=== PATIENT | female | born 1950 | race Caucasian/White ===

== ENCOUNTER 2024-03-05 22:46 | Emergency (ER) | payer MEDICARE, SELFPAY ==
[2024-03-05 22:52] VITALS: BP 129/79; PULSE 78; RESP 18; TEMP 36.7; O2SAT 99; BMI 25.8
--- NOTE | 2024-03-05 22:57 | ED.TRAUMA ---
HPI - Trauma General Time Seen by Provider: 22:57 <Lissa Mauro MD - Last Filed: 03/07/24 10:11> Date Seen: 03/05/24 <Lissa Mauro MD - Last Filed: 03/07/24 10:11> Chief Complaint: Extremity Pain/Injury, Upper <Lissa Mauro MD - Last Filed: 03/07/24 10:11> Stated Complaint: Fall, L arm injury, hit head <Lissa Mauro MD - Last Filed: 03/07/24 10:11> Time Seen by Provider: 03/05/24 22:53 <Lissa Mauro MD - Last Filed: 03/07/24 10:11> Source: patient, family and RN notes reviewed <Lissa Mauro MD - Last Filed: 03/07/24 10:11> Mode of arrival: ambulatory <Lissa Mauro MD - Last Filed: 03/07/24 10:11> Limitations: no limitations <Lissa Mauro MD - Last Filed: 03/07/24 10:11> On Arrival Trauma Team Activation: No <Lissa Mauro MD - Last Filed: 03/07/24 10:11> History of Present Illness HPI narrative: This very pleasant 74-year-old female is coming in with injuries after a fall. She did hit the left front of her head, there was no loss of consciousness. She did have 1 episode of emesis after but believes it was because she was anxious. No visual changes, no headache. She denies any new neck pain, does have some underlying neck chronic issues but feels nothing acute or new. She has no back pain. No difficulty breathing. She states her left arm or shoulder area hurt. It hurts to put her arm above her head. She did note that her elbow started bleeding, apparently has a small wound or skin tear there. Does not hurt in her elbow to move it or in the forearm down. She has no chest pain, no chest wall pain, difficulty breathing. She has no pain in her lower extremities or her right arm. She was going up 2 steps and tripped. She hit the left front of her head and the left arm. Her pain is primarily in the left upper arm. She is unsure of tetanus status. She is on no blood thinners but does take a baby aspirin daily. <Lissa Mauro MD - Last Filed: 03/07/24 10:11> complaint: fall and injury <Lissa Mauro MD - Last Filed: 03/07/24 10:11> Loss of Consciousness: no <Lissa Mauro MD - Last Filed: 03/07/24 10:11> Related Data Home Medications: Home Medications ?Medication ?Instructions ?Recorded ?Confirmed No Known Home Medications 03/05/24 03/05/24 <Lissa Mauro MD - Last Filed: 03/07/24 10:11> Allergies/Adverse Reactions: Allergies Allergy/AdvReac Type Severity Reaction Status Date / Time No Known Drug Allergies Allergy Verified 03/05/24 22:54 <Lissa Mauro MD - Last Filed: 03/07/24 10:11> [facility] Social History: Social History Smoking Status: Never smoker Second hand tobacco smoke exposure: No How often do you have a drink containing alcohol: never AUDIT-C Alcohol total score: 0 Non-prescribed substance use: denies use <Lissa Mauro MD - Last Filed: 03/07/24 10:11> Exam Const: Vital Signs, click to edit/add: Vital Signs - 24 hr 03/05/24 22:52 03/06/24 01:08 Temperature 98.0 F 98.0 F Pulse Rate [Right Pulse Oximeter] 78 Respiratory Rate 18 Blood Pressure [Le ft Upper Arm] 129/79 Pulse Oximetry 99 Oxygen Delivery Me thod Room Air This very pleasant 74-year-old female is alert, interactive, no apparent stress. Do note some upper extremity tremors at times. Pupils are equal round reactive, sclera clear, face atraumatic. 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 There is no wound in the scalp or on the forehead. No drainage from nares or ears. No midline tenderness of her neck, no paraspinous tenderness. Patient is able to sit up, lungs are clear, good air entry, no wheezing or crackles, no chest wall tenderness posteriorly, no midline tenderness over her back. CV regular rate and rhythm, no murmur, normal S1-S2, no S3-S4. She is nontender over clavicles, nontender over the glenohumeral joints. When I do gently move her left shoulder, she complains of pain in the shoulder and the upper arm. When I palpate along her humerus I cannot reproduce any pain. She has a small 1 center meter wound over the posterolateral elbow that is open and has some minimal bleeding. She has full flexion extension at the elbow, normal supination pronation, no pain with this. Forearm wrist and hand without any pain on this side, neurovascular intact. She has no pain in her right arm or her lower extremities. Abdomen is soft, nontender, nondistended. <Lissa Mauro MD - Last Filed: 03/07/24 10:11> Vital Signs, click to edit/add: Vital Signs - 24 hr 03/05/24 22:52 03/06/24 01:08 Temperature 98.0 F 98.0 F Pulse Rate [Right Pulse Oximeter] 78 Respiratory Rate 18 Blood Pressure [Le ft Upper Arm] 129/79 Pulse Oximetry 99 Oxygen Delivery Me thod Room Air <Maddy Shen MD - Last Filed: 03/06/24 01:25> Documenting provider has reviewed patient's vital signs: yes <Lissa Mauro MD - Last Filed: 03/07/24 10:11> Course Course ED Course: Have reviewed with patient that I do think we should do a head CT. I do understand that she may have been anxious causing the 1 episode of emesis and is feeling fine now. We did discuss the fragility of tissues as we age, really would feel it would be best to proceed with head CT to rule out acute pathology, she does agree. We did discuss the possibility of humeral fractures verses rotator cuff injury from a fall. I definitely think that elbow x-ray needs to be done as there is a superficial wound overlying the elbow, need to rule out any open fracture. She does have quite good range of motion of her elbow, hopefully there will not be a fracture. Will also x-ray her shoulder and her humerus to ensure no underlying fracture. From her description, suspect that she may have a rotator cuff traumatic injury. Nursing staff did look up that her tetanus is up-to-date on 09/25/2017. She is not taking anything for discomfort, we discussed a dose of Tylenol which she agreed upon. <Lsisa Mauro MD - Last Filed: 03/07/24 10:11> Reevaluation(s) Time of Reevaluation #1: 23:09 <Lissa Mauro MD - Last Filed: 03/07/24 10:11> Reevaluation #1: Wound was anesthetized with 4 mL 1% lidocaine. ED staff will irrigate the wound and then I will plan on closing with sutures. Did update them that her tetanus was in 2018, does not need to be updated at this time. <Lissa Mauro MD - Last Filed: 03/07/24 10:11> Time of Reevaluation #2: 23:16 <Lissa Mauro MD - Last Filed: 03/07/24 10:11> Reevaluation #2: Procedure note: Simple suture tray and standard sterile technique was followed. Wound was explored after irrigation. There is nothing that I can see that extends into the deep tissues, has about a 1 cm laceration along the lateral posterior elbow. Four simple interrupted sutures were placed using 4-0 Ethilon with good wound closure, no bleeding. Patient tolerated procedure well. Lab nursing staff bandage. Patient will proceed to imaging. <Lissa Mauro MD - Last Filed: 03/07/24 10:11> Time of Reevaluation #3: :24 <Maddy Shen MD - Last Filed: 03/06/24 01:25> Reevaluation #3: counseled patient and family on findings. X-rays are reassuring. CT of the head is reassuring. Still underlying concerns the could be an element of a rotator cuff injury to the left side. Patient counseled on frequent range of motion exercises for good mobility. Sling given for outings only, rare use encouraged. Discussed Tylenol, ibuprofen for pain control. Mild head injury symptoms reviewed, alarm symptoms reviewed that would warrant ED presentation. Discussed suture removal in 10 days, patient will schedule on her own. Written instructions provided, all questions answered. <Maddy Shen MD - Last Filed: 03/06/24 01:25> Vital Signs Vital signs: Initial Vital Signs Temperature 98.0 F 03/05/24 22:52 Temperature Source Temporal Artery Scan 03/05/24 22:52 Pulse Rate 78 03/05/24 22:52 Respiratory Rate 18 03/05/24 22:52 Blood Pressure 129/79 03/05/24 22:52 Blood Pressure Mean 95 03/05/24 22:52 Blood Pressure Position Sitting 03/05/24 22:52 Pulse Oximetry 99 03/05/24 22:52 Oxygen Delivery Method Room Air 03/05/24 22:52 Vital Signs Temperature 98.0 F 03/05/24 22:52 Pulse Rate 78 03/05/24 22:52 Respiratory Rate 18 03/05/24 22:52 Blood Pressure 129/79 03/05/24 22:52 Pulse Oximetry 99 03/05/24 22:52 Oxygen Delivery Method Room Air 03/05/24 22:52 Temperature 98.0 F 03/06/24 01:50 Pulse Rate 74 03/06/24 01:50 Respiratory Rate 18 03/06/24 01:50 Blood Pressure 115/74 03/06/24 01:50 Pulse Oximetry 99 03/06/24 01:10 Oxygen Delivery Method Room Air 03/06/24 01:10 <Lissa Mauro MD - Last Filed: 03/07/24 10:11> Initial Vital Signs Temperature 98.0 F 03/05/24 22:52 Temperature Source Temporal Artery Scan 03/05/24 22:52 Pulse Rate 78 03/05/24 22:52 Respiratory Rate 18 03/05/24 22:52 Blood Pressure 129/79 03/05/24 22:52 Blood Pressure Mean 95 03/05/24 22:52 Blood Pressure Position Sitting 03/05/24 22:52 Pulse Oximetry 99 03/05/24 22:52 Oxygen Delivery Method Room Air 03/05/24 22:52 Vital Signs Temperature 98.0 F 03/05/24 22:52 Pulse Rate 78 03/05/24 22:52 Respiratory Rate 18 03/05/24 22:52 Blood Pressure 129/79 03/05/24 22:52 Pulse Oximetry 99 03/05/24 22:52 Oxygen Delivery Method Room Air 03/05/24 22:52 Temperature 98.0 F 03/06/24 01:50 Pulse Rate 74 03/06/24 01:50 Respiratory Rate 18 03/06/24 01:50 Blood Pressure 115/74 03/06/24 01:50 Pulse Oximetry 99 03/06/24 01:10 Oxygen Delivery Method Room Air 03/06/24 01:10 <Maddy Shen MD - Last Filed: 03/06/24 01:25> Medications Administered Medications: Discontinued Medications Generic Name Dose Route Start Last Admin Trade Name Freq PRN Reason Stop Dose Admin Acetaminophen 1,000 mg 03/05/24 23:24 03/05/24 23:31 Acetaminophen 500 Mg Tablet PO 03/05/24 23:25 1,000 mg ONCE ONE Administration Lidocaine HCl 4 ml 03/05/24 23:34 03/05/24 23:15 Lidocaine 1% Mdv INJECTION 03/05/24 23:35 4 ml ONCE ONE Administration <Lissa Mauro MD - Last Filed: 03/07/24 10:11> Discontinued Medications Generic Name Dose Route Start Last Admin Trade Name Freq PRN Reason Stop Dose Admin Acetaminophen 1,000 mg 03/05/24 23:24 03/05/24 23:31 Acetaminophen 500 Mg Tablet PO 03/05/24 23:25 1,000 mg ONCE ONE Administration Lidocaine HCl 4 ml 03/05/24 23:34 03/05/24 23:15 Lidocaine 1% Mdv INJECTION 03/05/24 23:35 4 ml ONCE ONE Administration <Maddy Shen MD - Last Filed: 03/06/24 01:25> MDM - Trauma Imaging Data CT scan - head: Attestation: I have reviewed the pertinent imaging results. <Maddy Shen MD - Last Filed: 03/06/24 01:25> My impression: Age-related degenerative changes. No signs of bleed, mass, injury from trauma. <Maddy Shen MD - Last Filed: 03/06/24 01:25> Radiologist's impression: IMPRESSION: 1. No evidence of acute infarction, intracranial hemorrhage, or mass-effect seen. <Maddy Shen MD - Last Filed: 03/06/24 01:25> XR left shoulder: Attestation: I have reviewed the pertinent imaging results. <Maddy Shen MD - Last Filed: 03/06/24 01:25> My impression: Some osteoarthritic changes but no evidence of fracture, dislocation or other abnormality. <Maddy Shen MD - Last Filed: 03/06/24 01:25> Radiologist's impression: Left shoulder 3 views. Comparison: None. Findings: Bones: Alignment is unremarkable. No fractures or bone lesions. Joint spaces: Unremarkable. Soft tissues: Atherosclerotic calcifications of the aortic arch. Impression: No acute fracture or dislocation. Dictated by Edwardo Alejo MD @ 03/06/2024 12:49:05 AM <Maddy Shen MD - Last Filed: 03/06/24 01:25> XR left elbow: Attestation: I have reviewed the pertinent imaging results. <Maddy Shen MD - Last Filed: 03/06/24 01:25> My impression: No fracture, dislocation or effusion. Normal x-ray. note the radiology team noted a small effusion which I do not appreciate. <Maddy Shen MD - Last Filed: 03/06/24 01:25> Radiologist's impression: Impression: Small joint effusion and focal soft tissue swelling overlying the posterior elbow, but no definite fracture. <Maddy Shen MD - Last Filed: 03/06/24 01:25> XR humerus: Attestation: I have reviewed the pertinent imaging results. <Maddy Shen MD - Last Filed: 03/06/24 01:25> My impression: normal x-ray, no fracture dislocation or other abnormality <Maddy Shen MD - Last Filed: 03/06/24 01:25> Radiologist's impression: Impression: No acute fracture of the humerus. <Maddy Shen MD - Last Filed: 03/06/24 01:25> Discharge Plan Discharge Clinical Impression: Fall, Laceration of elbow, left, Sprain of left shoulder <Lissa Mauro MD - Last Filed: 03/07/24 10:11> Patient Disposition: Home w/ Parent or Adult <Lissa Mauro MD - Last Filed: 03/07/24 10:11> Condition: Stable <Lissa Mauro MD - Last Filed: 03/07/24 10:11> Instructions: Laceration (ED), Fall Prevention for Older Adults (ED) <Lissa Mauro MD - Last Filed: 03/07/24 10:11> Additional Instructions: May shower or bathe as usual but should otherwise keep the wound overlying your elbow clean and dry. Use bandages in bacitracin. plan for stitch removal in 10 days, schedule this in the clinic or make your own arrangements. Please schedule this appointment. If there are concerns for infection such as increasing swelling, pain, redness, purulent discharge or associated fever, need to be re-evaluated. You are likely to have headache, mild dizziness and some possible concentration changes for a day or 2 from your head injury. Your CT scan does not show any signs of major injury. I am concerned about a rotator cuff injury or tear to your shoulder. The nurses have given you a sling to really just where without ink. I do not want you wearing this all the time and especially not to rest, sleep or with simple movements around the house. Remember that it is important that you are doing [id number] exercises such as the circles forward and back that I demonstrated in the exam room. Try to do these every hour while you are awake. There is a little bit of swelling to the back part of the elbow which I do not think is a fracture. But if you continue to have significant pain in the elbow after 7 days, I would have this re-evaluated. For pain, I recommend Tylenol 1000 mg 3 times daily. You may add on ibuprofen 400-600 mg up to every 6-8 hours. It is okay to use gentle sleep aids like Unisom, melatonin or Tylenol p.m. if you like. <Lissa Mauro MD - Last Filed: 03/07/24 10:11> Activity Level: Activity as Tolerated <Lissa Mauro MD - Last Filed: 03/07/24 10:11> Activity as Tolerated <Maddy Shen MD - Last Filed: 03/06/24 01:25> Discharge Diet: Regular <Lissa Mauro MD - Last Filed: 03/07/24 10:11> Regular <Maddy Shen MD - Last Filed: 03/06/24 01:25> Prescriptions: No Action No Known Home Medications <Lissa Mauro MD - Last Filed: 03/07/24 10:11> Follow Up/Referrals: Anca Chavez PA-C [Physician Coat Examiner] - <Lissa Mauro MD - Last Filed: 03/07/24 10:11> Stand Alone Forms: [facility] Info Instructions <Lissa Mauro MD - Last Filed: 03/07/24 10:11>
--- NOTE | 2024-03-05 23:03 | CRLHL7_ITS ---
For Patients: As a result of the Cures Act, medical imaging exams and procedure reports are released immediately into your electronic medical record. You may view this report before your referring provider. If you have questions, please contact your health care provider. Indication: Injury and pain. Technique: Left elbow 3 views Comparison: None Findings: Bones: Alignment is normal. No definite fracture. Joint spaces: Small joint effusion. Soft tissues: Focal soft tissue swelling overlying the posterior elbow. Impression: Small joint effusion and focal soft tissue swelling overlying the posterior elbow, but no definite fracture. Dictated by Edwardo Alejo MD @ 03/06/2024 12:52:43 AM (Electronically Signed)
--- NOTE | 2024-03-05 23:03 | CRLHL7_ITS ---
For Patients: As a result of the Century Cures Act, medical imaging exams and procedure reports are released immediately into your electronic medical record. You may view this report before your referring provider. If you have questions, please contact your health care provider. Indication: Left shoulder pain after fall. Technique: Left shoulder 3 views. Comparison: None. Findings: Bones: Alignment is unremarkable. No fractures or bone lesions. Joint spaces: Unremarkable. Soft tissues: Atherosclerotic calcifications of the aortic arch. Impression: No acute fracture or dislocation. Dictated by Edwardo Alejo MD @ 03/06/2024 12:49:05 AM (Electronically Signed)
--- NOTE | 2024-03-05 23:03 | CRLHL7_ITS ---
For Patients: As a result of the Century Cures Act, medical imaging exams and procedure reports are released immediately into your electronic medical record. You may view this report before your referring provider. If you have questions, please contact your health care provider. Indication: Arm pain after fall. Technique: Three views of the left humerus. Comparison: None. Findings: Bones: Alignment is normal. No fractures or bone lesions. Joint spaces: Unremarkable. Soft tissues: Focal soft tissue swelling posterior to the elbow. Impression: No acute fracture of the humerus. Dictated by Edwardo Alejo MD @ 03/06/2024 12:56:42 AM (Electronically Signed)
--- NOTE | 2024-03-05 23:04 | CRLHL7_ITS ---
For Patients: As a result of the Century Cures Act, medical imaging exams and procedure reports are released immediately into your electronic medical record. You may view this report before your referring provider. If you have questions, please contact your health care provider. INDICATION: Fall-impact left forehead, injury, fall, hit head TECHNIQUE: CT Head without i.v. contrast. Coronal and sagittal reformats were obtained. COMPARISON: None FINDINGS: CSF space: Unremarkable for age. Brain: No evidence of mass, acute infarction or hemorrhage is seen. No mass-effect or midline shift is seen. Mild diffuse cortical atrophy is noted. The brain parenchyma is otherwise normal in appearance with preservation of the ybarra-white matter junction. Calvarium: The visualized paranasal sinuses are well aerated. The mastoid air cells are clear. The visualized orbits are grossly unremarkable. The calvarium is unremarkable in appearance with no fractures identified. IMPRESSION: 1. No evidence of acute infarction, intracranial hemorrhage, or mass-effect seen. Please note that all CT scans at this facility use dose modulation, iterative reconstruction, and/or weight-based dosing when appropriate to reduce radiation dose to as low as reasonably achievable. Dictated by: Hernan Jeffery MD @ 03/06/2024 00:55:51 (Electronically Signed)
[2024-03-05] MEDS: LIDOCAINE 1% MDV 4 ML INJECTION (23:15)
[2024-03-05] MEDS: ACETAMINOPHEN 500 MG TABLET 1000 MG PO (23:31)
[2024-03-06 01:08] VITALS: TEMP 36.7
[2024-03-06 01:10] VITALS: BP 115/74; PULSE 74; RESP 18; TEMP 36.7; O2SAT 99
[2024-03-06 01:50] VITALS: BP 115/74; PULSE 74; RESP 18; TEMP 36.7
== END 2024-03-06 01:51 | disposition home or self-care (01) ==
PROVIDERS: Emergency Provider Family Medicine
DX: S51.012A Laceration without foreign body of left elbow, initial encounter (principal); S43.402A Unspecified sprain of left shoulder joint, initial encounter; W10.9XXA Fall (on) (from) unspecified stairs and steps, initial encounter
CPT/HCPCS: 12001; 70450; 73030; 73060; 73080; 99284; 99285; A9270

== ENCOUNTER 2024-03-14 08:16 | Outpatient (CLI) | payer MEDICARE, SELFPAY ==
--- OUTSIDE RECORDS SUMMARY | 2024-03-18 05:43 | XMS_ITS | Referral Summary ---
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 [address] Cortney Espinosa MD Dx: Essential hypertension (Primary Dx) 02/19/2024 [address]ill [id number] [place] [address] Cortney Espinosa MD Dx: Type 2 diabetes mellitus with stage 1 chronic kidney disease, without long-term current use of insulin (HCC) (Primary Dx) 01/12/2024 Refill [id number] [place] [address] Cortney Espinosa MD Dx: Type 2 diabetes mellitus with stage 1 chronic kidney disease, without long-term current use of insulin (HCC) 01/05/2024 Refill [id number] [place] [address] Cortney Espinosa MD Dx: Rash (Primary Dx) 12/25/2023 Abstract [facility] [address] [place] [address] Cortney Espinosa MD from Last 3 Months Allergies Active Allergy Reactions Criticality Noted Date Comments Tramadol Nausea and / or Vomiting Low 04/29/2019 Medications Medication Sig Dispensed Refills Start Date End Date Status albuterol HFA (AKA: PROVENTIL/VENTOLIN ) 90 mcg/actuation inhalation HFA Aerosol Inhaler 1-2 Puffs by inhalation route every 4 hours if needed for shortness of breath. Active S-Q-Q-zinc-sod selenate-copper (AKA: OCUVITE, PROSIGHT) 5,000-60-30 [id number] oral Tablet Take 1 Tablet by mouth in the morning. 0 0 Active omega-3 fatty acids 1,000 mg oral Cap Take 1 Capsule (1,000 mg) by mouth in the morning. Active ascorbic acid, vitamin C, 500 mg oral tablet Take 1 Tablet (500 mg) by mouth in the morning. Active psyllium (METAMUCIL) oral Powder Take 5 g by mouth in the morning. Active fluticasone propionate (FLONASE) 50 mcg/actuation nasal [place], SuspensionIndicati ons:Allergic rhinitis due to pollen, unspecified seasonality INSTILL 1 SPRAY DAILY IN EACH NOSTRIL 16 g 5 3 Active alendronate (FOSAMAX) 70 mg oral TabletIndications: Postmenopausal osteoporosis TAKE ONE TABLET BY MOUTH FIRST THING IN THE MORNING ONCE WEEKLY WITH A FULL GLASS OF WATER - DO NOT EAT, DRINK OR LIE DOWN FOR 30 MINUTES AFTER TAKING 12 Tablet 3 3 Active cholecalciferol, vitamin D3, (VITAMIN D3) 2,000 unit oral Capsule Take 1 Capsule (2,000 Units) by mouth once daily. Active aspirin (CHILDREN'S ASPIRIN) 81 mg oral Tablet, Chewable Chew and Swallow 1 Tablet (81 mg) by mouth in the morning. Active docusate sodium (COLACE) 100 mg oral Capsule Take 2 Capsules (200 mg) by mouth in the morning. Active escitalopram oxalate (LEXAPRO) 20 mg oral TabletIndications: Adjustment disorder with depressed mood Take 1 Tablet (20 mg) by mouth in the morning. 90 Tablet 3 4 08/20/19 25 Active diclofenac sodium (VOLTAREN) 75 mg oral Tablet, Delayed Release (E.C.)Indications: Lumbar back pain TAKE ONE TABLET BY MOUTH EVERY MORNING 90 Tablet 1 4 Active PROCTO-MED HC 2.5 % topical cream with perineal applicatorIndicati ons:Rash APPLY TOPICALLY TO AFFECTED AREA(S) TWO TIMES DAILY 28 g 2 4 Active sulfamethoxazole-t rimethoprim (BACTRIM) 400-80 mg oral TabletIndications: Recurrent UTI TAKE ONE TABLET BY MOUTH EVERY DAY 90 Tablet 1 4 Active metFORMIN XR (GLUCOPHAGE XR) 500 mg oral Tablet Sustained Release 24HRIndications:Ty pe 2 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 360 Tablet 2 4 Active losartan (COZAAR) 100 mg oral TabletIndications: Essential hypertension TAKE ONE TABLET BY MOUTH EVERY DAY 90 Tablet 4 Active simvastatin (ZOCOR) 20 mg oral TabletIndications: Other hyperlipidemia Take 1 Tablet (20 mg) by mouth in the morning. 90 Tablet 3 4 Active loratadine (CLARITIN) 10 mg oral TabletIndications: Non-seasonal allergic rhinitis due to pollen Take 1 Tablet (10 mg) by mouth in the morning. 90 Tablet 3 4 Active simvastatin (ZOCOR) 20 mg oral TabletIndications: Other hyperlipidemia TAKE ONE TABLET BY MOUTH EVERY DAY 90 Tablet 3 3 03/09/20 24 Discontinued(Re order) loratadine (CLARITIN) 10 mg oral TabletIndications: Non-seasonal allergic rhinitis due to pollen TAKE ONE TABLET BY MOUTH EVERY DAY 90 Tablet 3 3 03/09/20 24 Discontinued(Re order) losartan (COZAAR) 100 mg oral TabletIndications: Essential hypertension TAKE ONE TABLET BY MOUTH EVERY DAY 90 Tablet 2 3 03/01/20 24 Discontinued metFORMIN XR (GLUCOPHAGE XR) 500 mg oral Tablet Sustained Release 24HRIndications:Ty pe 2 diabetes mellitus with stage 1 chronic kidney disease, without long-term current use of insulin (HCC) TAKE FOUR TABLETS BY MOUTH EVERY DAY 180 Tablet 4 02/19/20 24 Discontinued(Re order) Active Problems Problem Noted Date Diagnosed Date Vitamin D deficiency Solar elastosis Infection due to yeast Controlled diabetes mellitus Combined systolic and diastolic hypertension Allergic rhinitis due to pollen Immunizations Name Administration Dates Next Due Hepatitis B Vaccine, IM, Lars lt (Recombivax) (Engerix-B) 02/01/2009,08/11/1990,02/01/1990,1989 Influenza Vac, H1N1 05/11/2009 Influenza Vac, IM, Quadrivalent 04/03/2014 Influenza Vac, IM, Quadrival ent (aIIV4), Inactivated, Adjuvanted, Preserv Free (65+ Yrs) 04/27/2023,04/03/2022 Influenza Vac, IM, Quadrival ent Preserv Free, (>6 months) 04/10/2021,03/29/2020,03/28/2015 Influenza Vac, IM, Quadrival ent, Preserv Free, Split Virus (Fluzone 65+) 04/30/2019,04/02/2017,03/19/2016 Influenza Vac, IM, Trivalent (>3 Yrs) 03/28/2013 ,03/15/2012 Influenza Vac, IM, Trivalent , Preserv Free (Flulaval)(Fluarix)(Fluzone) 04/01/2011,03/18/2010 Pneumococcal Conj Vac, 13-va lent (Prevnar) 08/19/2016 Pneumococcal Vac, 23-valent, IM-SQ (Pneumovax) 07/13/2013 SARS-COV-2, IM (COVID-19)(Mo derna Booster) (Light Blue Label) 11/01/2021,05/09/2021 SARS-CoV-2, IM (COVID-19) Bi valent 12 Years + (Pfizer)([place]anza Label) 04/03/2022 SARS-CoV-2, IM (COVID-19)(Moderna)(Light Blue Label) 09/06/2020,08/09/2020 SARS-CoV-2, IM (COVID-19)(Moderna)(Spikevax), 12+yrs, 50mcg/0.5mL 04/27/2023 Td, Tetanus/Diphtheria, IM, >7 Yrs 09/25/2017 Tdap Vaccine, IM, (Adacel)(Boostrix) 01/21/2007 Varicella Vaccine, SQ (Zostavax) 05/28/2009 Social History Tobacco Use Types Packs/Day Years Used Date Smoking Tobacco: Never Smokeless Tobacco: Never Tobacco Cessation:Counseling Given: No Alcohol Use Standard Drinks/Week Comments Never 0 (1 standard drink = 0.6 oz pur e alcohol) [facility] Utilities Answer Date Recorded In the past 12 months has e [employer], [employer], or water [employer] threatened to shut off services in your home? No 08/15/2023 Humiliation, Afraid, Rape, and Kick questionnair e Answer Date Recorded Within the last year, have y ou been afraid of your partner or ex-partner? No 08/15/2023 Within the last year, have y ou been humiliated or emotionally abused in other ways by your partner or ex-partner? No Within the last year, have y ou been kicked, hit, slapped, or otherwise physically hurt by your partner or ex-partner? No 08/15/2023 Within the last year, have y ou been raped or forced to have any kind of sexual activity by your partner or ex-partner? No 08/15/2023 Social Connection and Isolat ion Panel [NHANES] Answer Date Recorded In a typical week, how many times do you talk on the phone with family, friends, or neighbors? Once a week 08/15/2023 How often do you get togethe r with friends or relatives? Once a week 08/15/2023 How often do you attend [facility] or adventist services? More than 4 times per year 08/15/2023 Do you belong to any clubs o r organizations such as druze groups, unions, fraternal or athletic groups, or school groups? No 08/15/2023 How often do you attend meet ings of the clubs or organizations you belong to? Never 08/15/2023 Are you , , di vorced, , never , or living with a partner? 08/15/2023 AUDIT-C Answer Date Recorded Q1: How often do you have a drink containing alcohol? Never 08/15/2023 Q2: How many drinks containi ng alcohol do you have on a typical day when you are drinking? Patient does not drink 4 Q3: How often do you have si x or more drinks on one occasion? Never 08/15/2023 Overall Financial Resource Strain (CARDIA) Answe r Date Recorded How hard is it for you to pa y for the very basics like food, housing, medical care, and heating? Not hard at all 08/15/2023 [facility] - Occupational Stress Questionnaire Answer Date Recorded Do you feel stress - tense, restless, nervous, or anxious, or unable to sleep at night because your mind is troubled all the time - these days? To some extent 08/15/2023 Exercise Vital Sign Answer Date Recorde d On average, how many days pe r week do you engage in moderate to strenuous exercise (like a brisk walk)? 1 day 08/15/2023 On average, how many minutes do you engage in exercise at this level? 10 min 08/15/2023 Hunger Vital Sign Answer Date Recorded Within the past 12 months, y ou worried that your food would run out before you got the money to buy more. Never true 08/15/19 24 Within the past 12 months, t he food you bought just didn't last and you didn't have money to get more. Never true 08/15/2023 PRAPARE - Transportation Answer Date Re corded In the past 12 months, has l ack of transportation kept you from medical appointments or from getting medications? No 03/06 In the past 12 months, has l ack of transportation kept you from meetings, work, or from getting things needed for daily living? No 03/24/2023 Housing Stability Vital Sign Answer Sridhar e Recorded In the last 12 months, was t here a time when you were not able to pay the mortgage or rent on time? No 08/15/2023 Number of Times Moved in the Last Year Not on fi le 08/15/2023 Homeless in the Last Year Not on file 2023 Housing Stability Answer Date Recorded In the last 12 months, was t here a time when you were not able to pay the mortgage or rent on time? No 08/15/2023 In the last 12 months, how many places have you lived? 1 08/15/2023 Number of Places Lived in the Last Year (Outpati ent) Not on file 08/15/2023 Number of Places Lived in the Last Year (Inpatie nt) Not on file 08/15/2023 In the last 12 months, was t here a time when you did not have a steady place to sleep or slept in a detention (including now)? No 08/15/2023 Depression (PHQ-9) Answer Date Recorded Last PHQ-9 Score 3 08/20/2023 Thoughts of self harm Not at all 08/20/2023 Intimate Partner Violence Answer Date R ecorded Are you in a relationship wh ere you are physically hurt, threatened and/or made to feel afraid? No 12/10/2022 Transportation Needs Answer Date Record ed In the past 12 months, has l ack of transportation kept you from medical appointments, meetings, work, or from getting medicines or things needed for daily living? No 08/15/2023 Education Answer Date Recorded What is the highest level of school you have completed or the highest degree you have received? Associate degree: occupational, technical, or vocational program 03/30/2023 Sex and Gender Information Value Date Recorded Sex Assigned at Not on file Gender Identity Female 01/16/2023 2:23 PM CDT Sexual Orientation Not on file Last Filed Vital Signs Vital Sign Reading Time Taken Comments Blood Pressure 139/81 08/21/2023 9:47 AM RADIOLOG[facility] HEALTH SPECIALIST Pulse 77 08/21/2023 9:47 AM RADIOLOGICAL HEALTH SPECIALIST Temperature 36.9 ??C (98.5 ??F) 08/21/2023 9:47 AM CS T Respiratory Rate 18 08/21/2023 9:47 AM RADIOLOGICAL HEALTH SPECIALIST Oxygen Saturation 96% 08/21/2023 9:47 AM RADIOLOGICAL HEALTH SPECIALIST Inhaled Oxygen Concentration - - Weight 73 kg (161 lb) 08/21/2023 9:47 AM RADIOLOGICAL HEALTH SPECIALIST Height 161.1 cm (5' 3.43) 03/30/2023 10:53 AM C DT Body Mass Index 28.14 03/30/2023 10:53 AM CDT Functional Status Functional Status Response Date of Assess ment Are you deaf or do you have serious difficulty h earing? No 03/24/2023 Are you blind or do you have serious difficulty seeing, even when wearing glasses? No 03/24/2023 Do you have serious difficul ty walking or climbing stairs? No 03/24/2023 Do you have difficulty dressing or bathing? No 03/24/2023 Do you have difficulty doing errands alone such as visiting a doctor's office or shopping because of a physical, mental, or emotional condition? No 03/24/2023 Cognitive Status Response Date of Assessm ent Do you have trouble concentr ating, remembering, or making decisions because of a physical, mental, or emotional condition? No 03/24/2023 Plan of Treatment Not on file Procedures Procedure Name Priority Date/Time Associated Diagnosis Comments EYE EXAM - EXTERNAL Routine 12/25/2023 GLYCOSYLATED HEMOGLOBIN, A1C Routine 09/10/2023 9:59 AM RADIOLOG[facility] HEALTH SPECIALIST Type 2 diabetes mellitus with stage 1 chronic kidney disease, without long-term current use of insulin (HCC) LIPID PANEL Routine 03/30/2023 11:28 AM CDT Other hyperlipidemia MICROALBUMIN, RANDOM, URINE Routine 03/30/2023 11:28 AM CDT Diabetes mellitus due to underlying condition, controlled, with microalbuminuria, without long-term current use of insulin (HCC) DEXA HIP AND SPINE Routine 02/26/2021 10 :38 AM CDT Postmenopausal osteoporosis COLONOSCOPY Routine 03/01/2020 12:01 PM CDT from Last 3 Months or Most Recently Relevant to Health Maintenance Results * EYE EXAM - EXTERNAL (12/25/2023) RETINOPATHY Negative [facility] Cortney Espinosa MD NURSING COMMUNIC[facility]ON [facility] [address] [address], * GLYCOSYLATED HEMOGLOBIN, A1C (09/10/2023 9:59 AM RADIOLOGICAL HEALTH SPECIALIST) Hemoglobin A1c 6.3 <=6.4 % 09/10/2023 10:27 [address] [facility] Estimated Average Glucose 134 mg/dL 09/10/2023 10:[address] [facility] Blood VENOUS BLOOD / Unknown Venipuncture / Unknown 09/10/2023 9:59 AM RADIOLOGICAL HEALTH SPECIALIST 09/10/2023 9:59 AM RADIOLOG[facility] HEALTH SPECIALIST Cortney Espinosa MD LAB CHEMISTRY ORDE RABLES Performing Organization Address City/[facility]/ZIP Co de Phone Number [facility] [address] [place] [address], [place] [phone] * MICROALBUMIN, RANDOM, URINE (03/30/2023 11:28 AM CDT) Microalbumin, Urine <12.0 mg/L 03/30/2023 1:46 PM CDT [facility] Creatinine, Urine 71.1 mg/dL 03/30/2023 1:46 PM CDT [facility] Microalbumin/Cr eatinine Ratio 03/30/2023 1:46 PM CDT [facility] Comment: Unable to calculate ratio due to decreased Microalbumin. Normal: <30 Microalbuminuria: 30-299 Clinical Microalbuminuria: >300 Urine SPOT URINE SPECIMEN / Unknown Non-blood Collection / Unknown 03/30/2023 11:28 AM CDT 03/30/2023 11:28 AM CDT Cortney Espinosa MD LAB URINE ORDERABL ES Performing Organization Address City/[facility]/ZIP Co de Phone Number [facility] [address] [place] [address], [place] [phone] * (ABNORMAL) LIPID PANEL (03/30/2023 11:28 AM CDT) Cholesterol 138 0 - 200 mg/dL 03/30/2023 1:39 PM CDT [facility] Triglycerides 86 0 - 150 mg/dL 03/30/2023 1:39 PM CDT [facility] Cholesterol, LDL (Calculated) 69 <=100 mg/dL 03/30/2023 1:39 PM CDT [facility] Cholesterol, HDL 52(L) 60 - 150 mg/dL 03/30/2023 1:39 PM CDT [facility] Cholesterol, vLDL 17 0 - 130 mg/dL 03/30/2023 1:39 PM CDT [facility] Fasting Status Yes 03/30/2023 1:39 PM CDT [facility] Blood VENOUS BLOOD / Unknown Venipuncture / Unknown 03/30/2023 11:28 AM CDT 03/30/2023 11:28 AM CDT Cortney Espinosa MD LAB CHEMISTRY ZACH GALAN [facility] Organization Address City/State/ZIP Co de Phone Number [facility] [address] [place] [address], * DEXA HIP AND SPINE (02/26/2021 10:38 AM CDT) Anatomical Region Laterality Modality Hip, Spine Other 02/26/2021 11:0 0 AM CDT Narrative 02/26/2021 11:04 AM CDT XR DEXA HIP AND SPINE DXA Bone Density Indication: , height loss, diabetes mellitus, postmenopausal, previous hormone replacement therapy use, history of a hysterectomy and osteopenia. Comparison: 03/13/2010 Data Analysis: AP spine: T score = -1.3; ?? Z score = 0.0 Femoral (bilateral mean) neck: T score = -2.3; ?? Z score = -0.8 Total (bilateral mean) femur: T score = -2.0; ?? Z score = -0.7 Based on the [place]-adapted WHO absolute fracture risk model (FRAX) available at www.NOF.or-year probability of hip fracture : 4.3% 10-year probability of major osteoporosis related fracture: 15.4% Risk may be underestimated in patients receiving or who have received pharmacologic therapy. Compared to previous imaging performed on 03/13/2010, the AP spine measurement has increased by 2.0%, which may be due to arthritic/sclerotic changes. The bilateral total femur measurement has decreased by 12.3%. Complete densitometry results and raw data ??are available in PACS. Assessment and recommendations: 1. The bilateral femoral neck T-score of -2.3 is considered osteopenic based on the WHO classification. Fracture risk increases exponentially with decreased bone mass. ??Given the T score and FRAX fracture risk, may consider pharmacological therapy. Overall, bone density has decreased when compared to the previous 2009 study. 2. All patients should receive an adequate intake of calcium (1,200 mg per day) and vitamin D (800-1,000 IU per day) through diet and, if necessary, supplements. 3. Patients should be advised to participate in regular weight-bearing and muscle-strengthening exercise as well as avoiding smoking and excessive alcohol intake. 4. Fall risk assessment and prevention counseling may be helpful and may include correcting vision and hearing, evaluating any neurological problems, reviewing prescription medications for side effects that may affect balance and providing tips for improving safety at home. Based on the National Osteoporosis Foundation (NOF) 2010 Clinicians Guide FDA-approved medical therapies should be considered in postmenopausal women and men aged 50 years and older with: 1. A hip or vertebral fracture 2. T-score less than or equal to -2.5 after exclusion of secondary causes 3. Low bone mass (T score between -1 and -2.5) and sufficient risk factors (10-year probability of a hip fracture greater than or equal to 3% or a 10-year probability of a major osteoporosis related fracture greater than or equal to 20% based on the [place] adapted WHO absolute fracture risk model or FRAX(R). These are only guidelines and treatment decisions may vary based on specific patient circumstances. Procedure Note Chetna Mann, PAC - 02/26/2021 XR DEXA HIP AND SPINE DXA Bone Density Indication: , height loss, diabetes mellitus, postmenopausal, previous hormone replacement therapy use, history of a hysterectomy and osteopenia. Comparison: 03/13/2010 Data Analysis: AP spine: T score = -1.3; Z score = 0.0 Femoral (bilateral mean) neck: T score = -2.3; Z score = -0.8 Total (bilateral mean) femur: T score = -2.0; Z score = -0.7 Based on the [place]-adapted WHO absolute fracture risk model (FRAX) available at www.NOF.or-year probability of hip fracture : 4.3% 10-year probability of major osteoporosis related fracture: 15.4% Risk may be underestimated in patients receiving or who have received pharmacologic therapy. Compared to previous imaging performed on 03/13/2010, the AP spine measurement has increased by 2.0%, which may be due to arthritic/sclerotic changes. The bilateral total femur measurement has decreased by 12.3%. Complete densitometry results and raw data are available in PACS. Assessment and recommendations: 1. The bilateral femoral neck T-score of -2.3 is considered osteopenic based on the WHO classification. Fracture risk increases exponentially with decreased bone mass. Given the T score and FRAX fracture risk, may consider pharmacological therapy. Overall, bone density has decreased when compared to the previous 2009 study. 2. All patients should receive an adequate intake of calcium (1,200 mg per day) and vitamin D (800-1,000 IU per day) through diet and, if necessary, supplements. 3. Patients should be advised to participate in regular weight-bearing and muscle-strengthening exercise as well as avoiding smoking and excessive alcohol intake. 4. Fall risk assessment and prevention counseling may be helpful and may include correcting vision and hearing, evaluating any neurological problems, reviewing prescription medications for side effects that may affect balance and providing tips for improving safety at home. Based on the National Osteoporosis Foundation (NOF) 2010 Clinicians Guide FDA-approved medical therapies should be considered in postmenopausal women and men aged 50 years and older with: 1. A hip or vertebral fracture 2. T-score less than or equal to -2.5 after exclusion of secondary causes 3. Low bone mass (T score between -1 and -2.5) and sufficient risk factors (10-year probability of a hip fracture greater than or equal to 3% or a 10-year probability of a major osteoporosis related fracture greater than or equal to 20% based on the [place] adapted WHO absolute fracture risk model or FRAX(R). These are only guidelines and treatment decisions may vary based on specific patient circumstances. Cortney Espinosa MD RAD DEXASCAN * COLONOSCOPY (03/01/2020 12:01 PM CDT) 03/01/2020 12:0 1 PM CDT [facility] - 03/01/2020 1:05 PM CDT Patient Name: SUMAYA GALVAN Procedure Date: 03/01/2020 Date of : 1950 Attending MD: BILLY ESPINOSA MD Referring MD CORTNEY ESPINOSA Additional Staff Jade ??Min, Assembler Filters; Malini ??LUCIA Quiros Patient Profile - ??Refer to note in patient chart for documentation of history and physical. Patient Profile - ??This is a 70 year old female. Comorbidities - ??Hypertension Comorbidities - ??Asthma Indications - ??Screening for colorectal malignant neoplasm Medications - ??Fentanyl 200 micrograms IV Medications - ??Midazolam 10 mg IV Complications - ??No immediate complications. Estimated Blood Loss - ??Estimated blood loss was minimal. Procedure - ??Prior to the procedure, a History and Physical was performed, and patient medications, allergies and sensitivities were reviewed. ??The patient's tolerance of previous anesthesia was reviewed. Procedure - ??The risks and benefits of the procedure and the sedation options and risks were discussed with the patient. All questions were answered and informed consent was obtained. Procedure - ??Patient identification and proposed procedure were verified prior to the procedure by the physician. ??The procedure was verified in the procedure room. Procedure - The Colonoscope was introduced through the anus and advanced to the cecum, identified by appendiceal orifice and ileocecal valve. Procedure - ??The colonoscopy was performed without difficulty. Procedure - ??The patient tolerated the procedure well. Procedure - ??The quality of the bowel preparation was good. Procedure - ??The ileocecal valve, appendiceal orifice, and rectum were photographed. Findings - ??The perianal and digital rectal examinations were normal. ??Pertinent negatives include no palpable rectal lesions and normal sphincter tone. Findings - ??Multiple medium-mouthed diverticula were found in the sigmoid colon. ??There was no evidence of diverticular bleeding. Findings - ??The exam was otherwise without abnormality on direct and retroflexion views. Impression - ??Moderate diverticulosis in the sigmoid colon. ??There was no evidence of diverticular bleeding. Impression - ??The examination was otherwise normal on direct and retroflexion views. Impression - ??No specimens collected. Recommendation - ??Repeat colonoscopy in 10 years for surveillance. Procedure Code(s) - G0121, Colorectal cancer screening; colonoscopy on individual not meeting criteria for high risk Diagnosis Code(s) - Z12.11, Encounter for screening for malignant neoplasm of colon Diagnosis Code(s) - I10, Essential (primary) hypertension Diagnosis Code(s) - J45.909, Unspecified asthma, uncomplicated Diagnosis Code(s) - K57.30, Diverticulosis of large intestine without perforation or abscess without bleeding Diagnosis Code(s)CPT(R) - 2019 copyright [employer]. All Rights Reserved. Diagnosis Code(s)The CPT codes, CCI edits and ICD codes generated are intended as suggestions and were generated based on input data. ??These codes are preliminary and upon clinical coder review may be revised to meet current compliance and payer requirements. ??The provider is responsible for the final determination of appropriate codes, and modifiers. Scope Withdrawal Time 00:12:06 Signature Name: Billy Espinosa Signature Statement:This document has been electronically signed. Note Initiated On:03/01/2020 Signature Date:03/01/2020 1:05 PM Cortney Espinosa MD GI PROCEDURES [facility] [address], [place] [address] from Last 3 Months or Most Recently Relevant to Health Maintenance Advance Directives Documents on File Type Date Recorded Patient Front End Engineer Expl anation Physician Orders for Life-Sustaining Treatment (POLST) 05/18/2023 2:28 PM POLST POLST-S 04/03/2023 2:26 PM Advanced Directives 06/06/2020 1:42 PM [facility] Directive-S 02/17/2005 1:42 PM Care Teams Sand Slinger Operator Relationship Specialty Start Date End Date Cortney Espinosa MD [address] [place] [address] PCP - General Family Medicine 04/30/19 [facility] 03/30/23 Primary Eye Care 03/30/23 Additional Source Comments PLEASE NOTE: Replies to this message will not be received.[facility] and [facility]
--- OUTSIDE RECORDS SUMMARY | 2024-03-18 05:43 | XMS_ITS | Encounter Summary ---
Author Organization [facility] Address [address] [place] [address] Care Team Providers Care Wildlife Removal Specialist Name Role Phone Cortney Chandra MD Primary Care Provider [phone]- [phone] Reason for Visit * Reason Comments Refill Request Encounter Details Date Type Department Care Team (Late st Contact Info) Description 03/01/2024 Refill [facility] [address] [place], [place] [id number] Cortney Chandra MD [address] [place] [address] Dx: Essential hypertension (Primary Dx) Social History Tobacco Use Types Packs/Day Years Used Date Smoking Tobacco: Never Smokeless Tobacco: Never Alcohol Use Standard Drinks/Week Comments Never 0 (1 standard drink = 0.6 oz pur e alcohol) [facility] Utilities Answer Date Recorded In the past 12 months has [facility] [employer], gas, oil, or water [employer] threatened to shut off services in your [...] week 08/15/2023 How often do you attend chur or evangelical services? More than 4 times per year 08/15/2023 Do you belong to any clubs o r organizations such as buddhist groups, unions, fraternal or athletic groups, or [...] you are drinking? Patient does not drink Q3: How often do you have si x or more drinks on one occasion? Never 08/15/2023 Overall Financial Resource Strain (CARDIA) Answe r Date Recorded How hard is it for you to pa y for the very basics like food, housing, medical care, and heating? Not hard at all 08/15/2023 [facility] - Occupational Stress [...] place to sleep or slept in a usp (including now)? No 08/15/2023 Depression (PHQ-9) Answer [...] PM CDT Sexual Orientation Not on file documented as of this encounter Functional Status Functional Status Response Date of [...] physical, mental, or emotional condition? No 03/24/2023 documented as of this encounter Miscellaneous Notes * Telephone Encounter - Chetna Mcnamara RN - 03/01/2024 2:08 PM CDT Medication requested for RF: Name from pharmacy: LOSARTAN POTASSIUM 100MG TABS Will file in chart as: losartan (COZAAR) 100 mg oral Tablet Sig: TAKE ONE TABLET BY MOUTH EVERY DAY Disp: 90 Tablet Refills: 2 Last RF: 06-04-23 #90 2RF Last appt with prescribing provider: 08/21/23-follow up visit 05/22/23-initiation of antidepressant 04/03/23-CDM 03/30/23-MA Potassium Date Value Ref Range Status 03/30/2023 4.1 3.5 - 5.1 mmol/L Final Creatinine Date Value Ref Range Status 03/30/2023 0.80 0.50 - 0.90 mg/dL Final Blood Pressure 08/21/23 139/81 RF protocol: PASSED Medication approved for: #90 Pt is due for MAW 04-03-24 documented in this encounter Plan of Treatment Not on file documented as of this encounter Visit Diagnoses Diagnosis Essential hypertension- Primary Unspecified essential hypertension documented in this encounter Care Teams Wildlife Removal Specialist Relationship Specialty Start Date End Date Cortney Chandra MD [address] [place] [address] PCP - General Family Medicine 04/30/19 [facility] 03/30/23 Primary Eye Care 03/30/23 documented as of this encounter Additional Source Comments PLEASE NOTE: Replies to this message will not be received.[facility] and [facility]
--- OUTSIDE RECORDS SUMMARY | 2024-03-18 05:43 | XMS_ITS | Clinical Summary ---
Author Organization [facility] Address [address] [place] [address] Care Team Providers Care Ukrainian Folk Arts Instructor Name Role Phone Cortney Espinosa MD Primary Care Provider +1- [phone] Allergies Active Allergy Reactions Criticality Noted Date Comments Tramadol Nausea and / or Vomiting Low 04/29/2019 Medications Medication Sig Dispensed Refills Start Date End Date Status albuterol HFA (AKA: PROVENTIL/VENTOLIN ) 90 mcg/actuation inhalation HFA Aerosol Inhaler 1-2 Puffs by inhalation route every 4 hours if needed for shortness of breath. Active I-C-A-zinc-sod selenate-copper (AKA: OCUVITE, PROSIGHT) 5,000-60-30 lrxi-kf-jnmf oral Tablet Take 1 Tablet by mouth [...] Active fluticasone propionate (FLONASE) 50 mcg/actuation nasal [place], SuspensionIndicati ons:Allergic rhinitis due to pollen, unspecified [...] disease, without long-term current use of insulin ([facility]) TAKE FOUR TABLETS BY MOUTH EVERY DAY 180 Tablet 4 02/19/20 24 Discontinued(Re order) Active Problems Problem Noted Date Diagnosed Date Vitamin D deficiency Solar elastosis Infection due to yeast Controlled diabetes mellitus Combined systolic and diastolic hypertension Allergic rhinitis due to pollen Encounters Date Type Department Care Team Description 03/08/2024 Patient Message [place] [address] [facility] [place] [address] Cortney Espinosa MD Dx: Other hyperlipidemia 03/01/2024 Refill [place] [address] [place] [address] Cortney Espinosa MD Dx: Essential hypertension (Primary Dx) 02/19/2024 Refill [place] [address] [place] [address] Cortney Espinosa MD Dx: Type 2 diabetes mellitus with stage 1 chronic kidney disease, without long-term current use of insulin ([facility]) (Primary Dx) 01/12/2024 Refill [place] [address] [place] [address] Cortney Espinosa MD Dx: Type 2 diabetes mellitus with stage 1 chronic kidney disease, without long-term current use of insulin ([facility]) [facility] [place] [address] [place] [address] Cortney Espinosa MD Dx: Rash (Primary Dx) 12/25/2023 Abstract [facility] [address] [place] [address] Cortney Espinosa MD from Last 3 Months Immunizations Name Administration Dates Next Due Hepatitis [...] (Adacel)(Boostrix) 01/21/2007 Varicella Vaccine, SQ (Zostavax) 05/28/2009 Family History Medical History Relation Name Comments No Known Problems Daughter October Hypertension Father Jah Other Father Jah tracheitis,acut e Colon Cancer Maternal Grandfather Adam No Known Problems Maternal Grandmother Shelbi No Known Problems Mother Yennifer No Known Problems Paternal Grandfather Tiffanie No Known Problems Paternal Grandmother Yamilet Diabetes Sister Anyi Heart Disease Sister Anyi No Known Problems Son Tre Relation Name Status Comments Daughter October Alive Father Jah (Age 54) Maternal Grandfather Adam (Age 60's) Maternal Grandmother Shelbi Mother Yennifer (Age 74) Paternal Grandfather Tavoner Paternal Grandmother Yamilet Sister Anyi (Age 72) Son Tre Alive Social History Tobacco Use Types Packs/Day Years Used Date Smoking Tobacco: Never Smokeless Tobacco: Never Tobacco Cessation:Counseling Given: No Alcohol Use Standard Drinks/Week Comments Never 0 (1 standard drink = 0.6 oz pur e alcohol) [facility] Utilities Answer Date Recorded In the past 12 months has [facility] [employer], gas, oil, or water [employer] threatened to shut off services in your [...] 08/15/2023 How often do you attend chur ch or synagogue services? More than 4 times per year 08/15/2023 Do you belong to any clubs o r organizations such as orthodox groups, unions, fraternal or athletic groups, or [...] and heating? Not hard at all 08/15/2023 [facility] - Occupational [...] place to sleep or slept in a senior living (including now)? No 08/15/2023 Depression (PHQ-9) Answer [...] Comments Blood Pressure 139/81 08/21/2023 9:47 AM MOLD CAR PUSHER Pulse 77 08/21/2023 9:47 AM MOLD CAR PUSHER Temperature 36.9 ??C (98.5 ??F) 08/21/2023 9:47 AM CS T Respiratory Rate 18 08/21/2023 9:47 AM MOLD CAR PUSHER Oxygen Saturation 96% 08/21/2023 9:47 AM MOLD CAR PUSHER Inhaled Oxygen Concentration - - Weight 73 kg (161 lb) 08/21/2023 9:47 AM MOLD CAR PUSHER Height 161.1 cm (5' 3.43) 03/30/2023 10:53 AM C DT Body Mass Index 28.14 03/30/2023 10:53 AM CDT Plan of Treatment Health Maintenance Due Date Last Done Comments Respiratory Syncytial Virus (RSV) Vaccine (1 - 1-dose 60+ series) 2008 COVID-19 Vaccine (2022- season) 2024 04/27/2023, 04/03/2022, 11/01/2021, Additional history exists Influenza Vaccine (#1) 2024 , 04/03/2022, 04/10/2021, Additional history exists Hemoglobin A1C 03/12/2024 09/10/2023, 03/07, 09/05/2022, Additional history exists Lipids 03/30/2024 03/30/2023, 02/04, 02/04/2021, Additional history exists Medicare Annual Visit 03/30/2024 03/30/2023 , 02/28/2022, 02/08/2021, Additional history exists Renal Assessment 03/30/2024 03/30/2023, , 09/25/2017, Additional history exists Varicella Zoster Sequential (2 of 3) 03/30/2024 05/28/2009 Postponed from 07/23/2009 (Insurance/Financial) Foot Exam 04/03/2024 04/03/2023, 03/07, 04/03/2023, Additional history exists Depression Screening 08/20/2024 08/20/2023, 08/20/19 24 Eye Exam 12/24/2024 12/25/2023, 12/04, 11/03/2018, Additional history exists DTaP/Tdap/Td Vaccines (3 - Td or Tdap) 09/26/2027 09/25/2017, 01/21/2007 Osteoporosis Screening-Female > 65 Years 02/26/2031 02/26/2021, 03/13/2010, 05/28/2005 Hepatitis B Vaccines Completed 02/01/2009, 08/11/1990, 02/01/1990, Additional history exists Pneumococcal Vaccine (65+ Years) Completed 08/19/2016, 07/13/2013 Colonoscopy Discontinued 03/01/2020, 02/04, 07/14/2007, Additional history exists HIB Vaccines Aged Out No longer eligi ble based on patient's age to complete this topic HPV Vaccines Aged Out No longer eligi ble based on patient's age to complete this topic Hepatitis A Vaccines Aged Out No long er eligible based on patient's age to complete this topic Hepatitis C Testing Discontinued Meningococcal Vaccines Aged Out No lo nger eligible based on patient's age to complete this topic Procedures Procedure Name Priority Date/Time Associated Diagnosis Comments EYE EXAM - EXTERNAL Routine 12/25/2023 GLYCOSYLATED HEMOGLOBIN, A1C Routine 09/10/2023 9:59 AM MOLD CAR PUSHER Type 2 diabetes mellitus with stage 1 [...] - EXTERNAL (12/25/2023) RETINOPATHY Negative [facility]UL[facility]EP [facility] Cortney Espinosa MD [facility] [place] [address], * GLYCOSYLATED HEMOGLOBIN, A1C (09/10/2023 9:59 AM MOLD CAR PUSHER) Hemoglobin A1c 6.3 <=6.4 % 09/10/2023 10:27 AM MOLD CAR PUSHER [facility] Estimated Average Glucose 134 mg/dL 09/10/2023 10:27 AM [facility] Blood VENOUS BLOOD / Unknown Venipuncture / Unknown 09/10/2023 9:59 AM MOLD CAR PUSHER 09/10/2023 9:59 AM MOLD CAR PUSHER Cortney Espinosa MD LAB CHEMISTRY [facility] [place] [address] [id number] [place] [address], [place] [phone] * MICROALBUMIN, RANDOM, URINE (03/30/2023 11:28 AM CDT) Microalbumin, Urine <12.0 mg/L 03/30/2023 1:46 PM CDT [facility] Creatinine, Urine 71.1 mg/dL 03/30/2023 1:46 PM CDT [facility] Microalbumin/Cr eatinine Ratio 03/30/2023 1:46 PM CDT [facility] Comment: Unable to calculate ratio due to decreased Microalbumin. Normal: <30 Microalbuminuria: 30-299 Clinical Microalbuminuria: >300 Urine SPOT URINE SPECIMEN / Unknown Non-blood Collection / Unknown 03/30/2023 11:28 AM CDT 03/30/2023 11:28 AM CDT Cortney Espinosa MD LAB URINE ORDERABL ES [facility] [address] [place] [address], [place] [phone] * (ABNORMAL) LIPID PANEL (03/30/2023 11:28 AM CDT) Cholesterol 138 0 - 200 mg/dL 03/30/2023 1:39 PM CDT [facility] Triglycerides 86 0 - 150 mg/dL 03/30/2023 1:39 PM CDT [facility] Cholesterol, LDL (Calculated) 69 <=100 mg/dL 03/30/2023 1:39 PM CDT [facility] Cholesterol, HDL 52(L) 60 - 150 mg/dL 03/30/2023 1:39 PM CDT [facility] Cholesterol, vLDL 17 0 - 130 mg/dL 03/30/2023 1:39 PM CDT [facility] Fasting Status Yes 03/30/2023 1:39 PM CDT [facility] Blood VENOUS BLOOD / Unknown Venipuncture / Unknown 03/30/2023 11:28 AM CDT 03/30/2023 11:28 AM CDT Cortney Espinosa MD LAB CHEMISTRY [facility] Organization Address City/State/ZIP Co de Phone Number [facility] [address] [place] [address], * DEXA HIP AND SPINE (02/26/2021 10:38 [...] PM CDT) 03/01/2020 12:0 1 PM CDT Narrative [facility] - 03/01/2020 1:05 PM CDT Patient Name: SUMAYA GALVAN Procedure Date: 03/01/2020 Date of : 1950 Attending MD: BILLY ESPINOSA MD Referring MD CORTNEY ESPINOSA Additional Staff Jade ??Min, Dial Brusher; Malini ??LUCIA Quiros Patient Profile - ??Refer [...] without bleeding Diagnosis Code(s)CPT(R) - 2019 copyright [employer]. All Rights Reserved. Diagnosis Code(s)The CPT codes, CCI edits and ICD codes generated are intended as suggestions and were generated based on input data. ??These codes are preliminary and upon medical coder review may be revised to meet current compliance and payer requirements. ??The provider is responsible for the final determination of appropriate codes, and modifiers. Scope Withdrawal Time 00:12:06 Signature Name: Billy Espinosa Signature Statement:This document has been electronically signed. Note Initiated On:03/01/2020 Signature Date:03/01/2020 1:05 PM Cortney Espinosa MD GI PROCEDURES [facility] [address] [place] [address], from Last 3 Months or Most Recently Relevant to Health Maintenance Advance Directives Documents on File Type Date Recorded Patient Commercial Construction Project Manager Expl anation Physician Orders for Life-Sustaining Treatment (POLST) 05/18/2023 2:28 PM POLST POLST-S 04/03/2023 2:26 PM Advanced Directives 06/06/2020 1:42 PM [facility] Directive-S 02/17/2005 1:42 PM Care Teams Ukrainian Folk Arts Instructor Relationship Specialty Start Date End Date Cortney Espinosa MD [address] [place] [phone] PCP - General Family Medicine 04/30/19 [facility] 03/30/23 Primary Eye Care 03/30/23 Additional Source Comments PLEASE NOTE: Replies to this message will not be received.[facility] and [facility]
--- OUTSIDE RECORDS SUMMARY | 2024-03-18 05:43 | XMS_ITS | Encounter Summary ---
Author Organization [facility] Address [address] [place] [address] Care Team Providers Care Labor Union Business Representative Name Role Phone Cortney Chandra MD Primary Care Provider +1- [phone] Encounter Details Date Type Department Care Team (Latest Contact Info) Description 03/08/2024 Patient Message [facility] [address] [place], [place] [phone] Cortney Chandra MD [address] [place] [phone] Dx: Other hyperlipidemia Social History Tobacco Use Types Packs/Day Years Used Date Smoking Tobacco: Never Smokeless Tobacco: Never Alcohol Use Standard Drinks/Week Comments Never 0 (1 standard drink = 0.6 oz pur e alcohol) [facility] Utilities Answer Date Recorded In the past 12 months has [facility], [employer], oil, or water [employer] threatened to shut off services in your [...] How often do you attend chur or sikhism services? More than 4 times per year 08/15/2023 Do you belong to any clubs o r organizations such as congregation groups, unions, fraternal or athletic groups, or [...] and heating? Not hard at all 08/15/2023 [facility] - Occupational [...] place to sleep or slept in a residential (including now)? No 08/15/2023 Depression (PHQ-9) Answer [...] No 03/24/2023 documented as of this encounter Plan of Treatment Not on file documented as of this encounter Visit Diagnoses Diagnosis Other hyperlipidemia Non-seasonal allergic rhinitis due to pollen documented in this encounter Care Teams Labor Union Business Representative Relationship Specialty Start Date End Date Cortney Chandra MD [address] [place] [phone] PCP - General Family Medicine 04/30/19 [facility] 03/30/23 Primary Eye Care 03/30/23 documented as of this encounter Additional Source Comments PLEASE NOTE: Replies to this message will not be received.[facility] and [facility]
--- OUTSIDE RECORDS SUMMARY | 2024-03-18 05:44 | XMS_ITS | Encounter Summary ---
Author Organization [facility] Address [address] [place] [address] Care Team Providers Care Christmas Bell Ringer Name Role Phone Unknown, Provider Primary Care Provider UnavailCortney Dye MD Unavailable [phone] Cortney Chandra MD Primary Care Provider [phone]- [phone] Encounter Details Date Type Department Care Team (Late st Contact Info) Description 09/03/2017 Historical Conversion [facility] Family Medicine [address] [facility] [place] [address] Rosemary Aquino APRN,MIX HOUSE OPERATOR [address] [place] [phone] Social History Tobacco Use Types Packs/Day Years Used Date Smoking Tobacco: Never Assessed Sex and Gender Information Value Date Recorded Sex Assigned at Not on file Gender Identity Female 01/16/2023 2:23 PM CDT Sexual Orientation Not on file documented as of this encounter Progress Notes * Rosemary Aquino, CHALINO,MIX HOUSE OPERATOR - 09/03/2017 12:00 AM CST Assessment 1. Dysuria (788.1) (R30.0) Plan Due to Azo interference with the urinalysis are going to send for culture. Based on symptoms she started on Cipro 500 mg 1 tab twice a day x5 days. If she develops fever, back pain we certainly will need to see her back for reassessment. She verbalized understanding of the plan of care and agreed. note was created with speech recognition software therefore unintentional errors may be present. Plan Orders Dysuria Ciprofloxacin HCl - 500 MG Oral Tablet; 1 PILL TWICE DAILY X 5 DAYS BY MOUTH Urinary symptom or sign Culture - Urine; Specimen Source:Urine; Status:Active; Requested for:03Sep2017; Reason For Visit Pt. presents today for urinary symptoms. Derick OSORIO History of Present Illness 67-year-old female presents to the clinic today with complaint of increased urinary urgency and frequency and painful urination over the past 24 hours. She has not had any back pain or lower abdominal pain. No vaginal symptoms. No fevers, nausea or vomiting. Last urinary tract infection was approximately 2 years ago. She has no prior history of kidney stone. Histories Reviewed The following histories were reviewed in the [facility] at today's visit and are current: Past Medical History Social History Current Meds 1. Aspirin 81 MG TABS; ONE DAILY; Last Rx:14Mar2010 Ordered 2. Cheratussin AC 100-10 MG/5ML Oral Syrup; TAKE 10 ML EVERY 4 TO 6 HOURS NEEDED; Therapy: 05Oct2012 to (Evaluate:25Sez1236); Last Rx:08Aug2016 Ordered 3. Cyclobenzaprine HCl - 10 MG Oral Tablet; TAKE 1/2 TO 1 TABLET THREE TIMES DAILY; Therapy: 30Sep2010 to (Evaluate:[id number]) Requested for: 07Jul2016; Last Rx:07Jul2016 Ordered 4. Fluticasone Propionate 50 MCG/ACT Nasal Suspension; INSTILL 1 SPRAY DAILY IN EACH NOSTRIL; Therapy: 17Apr2009 to (Evaluate:15Dec2016) Requested for: [id number]; Last Rx:13Ebr3636 Ordered 5. Hydrocortisone 2.5 % External Cream; APPLY SPARINGLY TO AFFECTED AREA(S) TWICE DAILY; Therapy: 20Jul2015 to (Evaluate:[id number]) Requested for: 17Jul2017; Last Rx:17Jul2017 Ordered 6. Loratadine 10 MG Oral Tablet; TAKE 1 TABLET BY MOUTH DAILY NEEDED; Therapy: 79Iud2003 to (Evaluate:12Sep2017) Requested for: 17Sep2016; Last Rx:17Sep2016 Ordered 7. Losartan Potassium 100 MG Oral Tablet; TAKE 1 TABLET BY MOUTH ONCE DAILY; Therapy: 25Siu1054 to (Evaluate:12Jul2018) Requested for: 17Jul2017; Last Rx:17Jul2017 Ordered 8. MetFORMIN HCl ER 500 MG Oral Tablet Extended Release 24 Hour; TAKE 4 TABLETS( 2000MG) BY MOUTH ONCE DAILY; Therapy: 22Avk0220 to (Evaluate:12Jul2018) Requested for: 17Jul2017; Last Rx:17Jul2017 Ordered 9. One-Daily Multi Vitamins Oral Tablet; TAKE 1 TABLET DAILY; Therapy: (Recorded:23Jul2012) to Recorded 10. Simvastatin 20 MG Oral Tablet; TAKE ONE TABLET BY MOUTH DAILY; Therapy: 31Mhk2938 to (Evaluate:12Jul2018) Requested for: 17Jul2017; Last Rx:17Jul2017 Ordered 11. Ventolin HFA 108 (90 Base) MCG/ACT Inhalation Aerosol Solution; INHALE 1 TO 2 PUFFS EVERY 4 TO 6 HOURS NEEDED; Therapy: 06Mar2017 to (Last Rx:06Mar2017) Requested for: 06Mar2017 Ordered 12. Vitamin D3 1000 UNIT Oral Tablet; takes 2 tablets daily; Therapy: (Recorded:19Aug2016) to Recorded Allergies 1. Ultram TABS Vitals Vital Signs Recorded: 03Sep2017 10:43AM Systolic 142, LUE, Sitting Diastolic 84, LUE, Sitting Heart Rate 92, L Radial Pulse Quality Normal, L Radial Respiration Quality Normal Respiration 14 Temperature 99.3 F, Tympanic Weight 86.5 kg BMI Calculated 32.56 BSA Calculated 1.92 O2 Saturation 94, RA Physical Exam General Appearance: OCTAVIO is healthy-appearing, alert, well nourished, well developed and in no acute distress. Psychiatric: appropriate mood and affect, good eye contact and answers questions appropriately. Results/Data UA - Culture if Indicated 03Sep2017 10:22AM Rosemary Aquino Test Name Result Flag Reference Urinalysis-Color OTHER A Urinalysis- Appearance CLEAR Urinalysis-WBC 0-4 0-4 Urinalysis-RBC 10-19 A 0-4 Urinalysis-Epith RARE Urinalysis-Hyal Cast NEG Urinalysis- Bacteria RARE UrinalysisA LOW VOLUME SPECIMEN FOR MICRO EXAM UNABLE TO PERFORM DIPSTICK DUE TO COLOR INTERFERENCE OF URINE Signatures Electronically signed by : Rosemary Aquino RN MIX HOUSE OPERATOR RN,MIX HOUSE OPERATOR; Sep 03 2017 5:41PM MANAGER BUSINESS INTELLIGENCE documented in this encounter Plan of Treatment Not on file documented as of this encounter Visit Diagnoses Not on filedocumented in this encounter Care Teams Christmas Bell Ringer Relationship Specialty Start Date End Date Unknown, Provider . HIRAM PEGUERO [address] PCP - General 03/26/18 04/29/19 Cortney Chandra MD [address] [place] [address] [place] [phone] PCP - General Family Medicine 04/30/19 Cortney Chandra MD [address] [place] [address] [phone] PCP Family Medicine 04/29/19 04/29/19 [facility] 03/30/23 Primary Eye Care 03/30/23 documented as of this encounter Additional Source Comments PLEASE NOTE: Replies to this message will not be received.[facility] and [facility]
--- OUTSIDE RECORDS SUMMARY | 2024-03-18 05:44 | XMS_ITS | Encounter Summary ---
Author Organization [employer] Address [address] [place] [address] Care Team Providers Care Church History Professor Name Role Phone Unknown, Provider Primary Care Provider Unavaila ble Cortney Chadnra MD Unavailable [phone] Cortney Chandra MD Primary Care Provider [phone] Encounter Details Date Type Department Care Team (Late st Contact Info) Description 09/01/2014 Historical Conversion [facility] Family Medicine [address] [place] [address]. [place] [address] Cortney Chandra MD [address] [place] [address] Social History Tobacco Use Types Packs/Day Years Used Date Smoking Tobacco: Never Assessed Sex and Gender Information Value Date Recorded Sex Assigned at Not on file Gender Identity Female 01/16/2023 2:23 PM CDT Sexual Orientation Not on file documented as of this encounter Last Filed Vital Signs Vital Sign Reading Time Taken Comments Blood Pressure 130/80 09/01/2014 12:00 AM ENGRAVER BLOCK Pulse - - Temperature - - Respiratory Rate - - Oxygen Saturation - - Inhaled Oxygen Concentration - - Weight 85.7 kg (189 lb) 09/01/2014 12:00 AM ENGRAVER BLOCK Height 163.8 cm (5' 4.5) 09/01/2014 12:00 AM CS T Body Mass Index 31.94 09/01/2014 12:00 AM ENGRAVER BLOCK documented in this encounter Plan of Treatment Not on file documented as of this encounter Visit Diagnoses Not on filedocumented in this encounter Care Teams Church History Professor Relationship Specialty Start Date End Date Unknown, Provider . HIRAM PEGUERO [id number] PCP - General 03/26/18 04/29/19 Cortney Chandra MD [address] [place] [phone] PCP - General Family Medicine 04/30/19 Cortney Chandra MD [address] [place] [address] PCP Family Medicine 04/29/19 04/29/19 [facility] 03/30/23 Primary Eye Care 03/30/23 documented as of this encounter Additional Source Comments PLEASE NOTE: Replies to this message will not be received.[facility]
--- OUTSIDE RECORDS SUMMARY | 2024-03-18 05:44 | XMS_ITS | Encounter Summary ---
Author Organization [employer] Address [address] [place] [address] Care Team Providers Care Senior Engineering Technician Name Role Phone Unknown, Provider Primary Care Provider Unavaila Cortney Gomez MD Unavailable [phone] Cortney Chandra MD Primary Care Provider [phone] Encounter Details Date Type Department Care Team (Late st Contact Info) Description 06/16/2017 Historical Conversion [facility] Family Medicine [address] [place] [id number] Rosalia Lopez MD Social History Tobacco Use Types Packs/Day Years Used Date Smoking Tobacco: Never Assessed Sex and Gender Information Value Date Recorded Sex Assigned at Not on file Gender Identity Female 01/16/2023 2:23 PM CDT Sexual Orientation Not on file documented as of this encounter Last Filed Vital Signs Vital Sign Reading Time Taken Comments Blood Pressure 136/81 06/16/2017 12:00 AM OUTSIDE COLLECTOR Pulse - - Temperature - - Respiratory Rate - - Oxygen Saturation - - Inhaled Oxygen Concentration - - Weight 86.5 kg (190 lb 11.2 oz) 017 12:00 AM OUTSIDE COLLECTOR Height - - Body Mass Index 32.56 08/19/2016 12:00 AM OUTSIDE COLLECTOR documented in this encounter Progress Notes * Rosalia Lopez MD - 06/16/2017 12:00 AM CST DERMATOLOGY OCTAVIO GALVAN : 1950 HX: [id number] DOS: 06/16/2017 CHIEF COMPLAINT: History of squamous cell carcinoma. SUBJECTIVE: Octavio is a 67-year-old female who returns to the Dermatology Clinic for a skin check.The patient has a history of: 1. Squamous cell carcinoma, mid-back, excised in 2005. The patient, today, denies any new black, bleeding, or sore lesions. CURRENT MEDICATIONS: Aspirin. Cheratussin AC. Cyclobenzaprine. Flonase. Hydrocortisone cream. Loratadine. Losartan. Metformin. Multivitamin. Tamiflu. Simvastatin. Ventolin. Vitamin D3. ALLERGIES: ULTRAM. REVIEW OF SYSTEMS: The patient denies any fevers, chills, or cough. PHYSICAL EXAM: Vital signs reviewed in [employer]. Please see vitals tab for details. The patient is in no acute distress. The face, scalp, neck, back, chest, abdomen, arms, hands, and legs are examined. Diffusely throughout her face, chest, back, and bilateral forearms are hyperpigmentation, hypopi gmentation, and mild skin laxity. Site of removal of the squamous cell carcinoma shows well healed scar. No signs of recurrence by both inspection and palpation. ASSESSMENT: A 67-year-old female with: 1. Solar elastosis. 2. History of squamous cell carcinoma. No signs of recurrence at the site. PLAN: 1. Sun smart tips reviewed with the patient. 2. Monthly self-skin exams reviewed with the patient. 3. Follow up for skin check yearly, sooner if she notes any new or changing lesion. Rosalia Lopez M.D./ cc: Cortney Chandra M.D./[facility] Electronically signed by:Rosalia Lopez M.D. Jun 23 2017 8:25AM OUTSIDE COLLECTOR documented in this encounter Plan of Treatment Not on file documented as of this encounter Visit Diagnoses Not on filedocumented in this encounter Care Teams Senior Engineering Technician Relationship Specialty Start Date End Date Unknown, Provider . HIRAM PEGUERO [id number] PCP - General 03/26/18 04/29/19 Cortney Chandra MD [address] [place] [phone] PCP - General Family Medicine 04/30/19 Cortney Chandra MD [address] [place] [phone] PCP Family Medicine 04/29/19 04/29/19 [facility] 03/30/23 Primary Eye Care 03/30/23 documented as of this encounter Additional Source Comments PLEASE NOTE: Replies to this message will not be received.[facility] and [facility]
--- OUTSIDE RECORDS SUMMARY | 2024-03-18 05:44 | XMS_ITS | Encounter Summary ---
Author Organization [employer] Address [address] [place] [address] Care Team Providers Care Feather Trimmer Name Role Phone Unknown, Provider Primary Care Provider UnavailCortney Dye MD Unavailable [phone] Cortney Chandra MD Primary Care Provider [phone] Encounter Details Date Type Department Care Team (Late st Contact Info) Description 06/14/2018 Historical Conversion [facility] Family Medicine [address] [address] Rosemary Aquino, CUSTOMER ACCOUNT TECHNICIAN,[employer] [address] [place] [address] Social History Tobacco Use Types Packs/Day Years Used Date Smoking Tobacco: Never Assessed Sex and Gender Information Value Date Recorded Sex Assigned at Not on file Gender Identity Female 01/16/2023 2:23 PM CDT Sexual Orientation Not on file documented as of this encounter Last Filed Vital Signs Vital Sign Reading Time Taken Comments Blood Pressure 144/88 06/14/2018 12:00 AM OCCUPATIONAL ANALYST Pulse - - Temperature - - Respiratory Rate - - Oxygen Saturation - - Inhaled Oxygen Concentration - - Weight 87 kg (191 lb 12.8 oz) 06/14/2018 12:00 A M OCCUPATIONAL ANALYST Height - - Body Mass Index 32.75 09/25/2017 12:00 AM CDT documented in this encounter Plan of Treatment Not on file documented as of this encounter Visit Diagnoses Not on filedocumented in this encounter Care Teams Feather Trimmer Relationship Specialty Start Date End Date Unknown, Provider . HIRAM PEGUERO [id number] PCP - General 03/26/18 04/29/19 Cortney Chandra MD [address] [place] [phone] PCP - General Family Medicine 04/30/19 Cortney Chandra MD [address] [place] [phone] PCP Family Medicine 04/29/19 04/29/19 [facility] 03/30/23 Primary Eye Care 03/30/23 documented as of this encounter Additional Source Comments PLEASE NOTE: Replies to this message will not be received.[facility] and [facility]
--- OUTSIDE RECORDS SUMMARY | 2024-03-18 05:44 | XMS_ITS | Encounter Summary ---
Author Organization [employer] Address [address] [place] [address] Care Team Providers Care Afterschool Name Role Phone Unknown, Provider Primary Care Provider Unavaila ble Cortney Chandra MD Unavailable [phone] Cortney Chandra MD Primary Care Provider [phone] Encounter Details Date Type Department Care Team (Late st Contact Info) Description 08/30/2018 Historical Conversion [facility] Family Medicine [address] [place] [address]. [place] [address] Cortney Chandra MD [address] [place] [address] Social History Tobacco Use Types Packs/Day Years Used Date Smoking Tobacco: Never Assessed Sex and Gender Information Value Date Recorded Sex Assigned at Not on file Gender Identity Female 01/16/2023 2:23 PM CDT Sexual Orientation Not on file documented as of this encounter Last Filed Vital Signs Vital Sign Reading Time Taken Comments Blood Pressure 124/76 08/30/2018 12:00 AM SERIALS LIBRARIAN Pulse - - Temperature - - Respiratory Rate - - Oxygen Saturation - - Inhaled Oxygen Concentration - - Weight 88.5 kg (195 lb 1.7 oz) 08/30/2018 12:00 AM SERIALS LIBRARIAN Height 162.5 cm (5' 3.98) 08/30/2018 12:[address] Body Mass Index 33.52 08/30/2018 12:00 AM SERIALS LIBRARIAN documented in this encounter Plan of Treatment Not on file documented as of this encounter Visit Diagnoses Not on filedocumented in this encounter Care Teams Afterschool Relationship Specialty Start Date End Date Unknown, Provider . HIRAM PEGUERO [address] PCP - General 03/26/18 04/29/19 Cortney Chandra MD [address] [place] [address] PCP - General Family Medicine 04/30/19 Cortney Chandra MD [address] [place] [address] PCP Family Medicine 04/29/19 04/29/19 [facility] 03/30/23 Primary Eye Care 03/30/23 documented as of this encounter Additional Source Comments PLEASE NOTE: Replies to this message will not be received.[facility] and [facility]
--- OUTSIDE RECORDS SUMMARY | 2024-03-18 05:44 | XMS_ITS | Encounter Summary ---
Author Organization [employer] Address [address] [place] [address] Care Team Providers Care Mixer And Scaler Name Role Phone Unknown, Provider Primary Care Provider Unavaila Cortney Gomez MD Unavailable Cortney Chandra MD Primary Care Provider [phone] Encounter Details Date Type Department Care Team (Late st Contact Info) Description 11/07/2014 Historical Conversion [facility] Family Medicine [address] [place] [address]. [place] [address] Cortney Chandra MD [address] [place] [address] Social History Tobacco Use Types Packs/Day Years Used Date Smoking Tobacco: Never Assessed Sex and Gender Information Value Date Recorded Sex Assigned at Not on file Gender Identity Female 01/16/2023 2:23 PM CDT Sexual Orientation Not on file documented as of this encounter Last Filed Vital Signs Vital Sign Reading Time Taken Comments Blood Pressure 134/82 11/07/2014 12:00 AM CDT Pulse - - Temperature - - Respiratory Rate - - Oxygen Saturation - - Inhaled Oxygen Concentration - - Weight - - Height - - Body Mass Index - - documented in this encounter Plan of Treatment Not on file documented as of this encounter Visit Diagnoses Not on filedocumented in this encounter Care Teams Mixer And Scaler Relationship Specialty Start Date End Date Unknown, Provider . HIRAM PEGUERO [address] PCP - General 03/26/18 04/29/19 Cortney Chandra MD [address] [place] [phone] PCP - General Family Medicine 04/30/19 Cortney Chandra MD [address] [place] [address] PCP Family Medicine 04/29/19 04/29/19 [facility] 03/30/23 Primary Eye Care 03/30/23 documented as of this encounter Additional Source Comments PLEASE NOTE: Replies to this message will not be received.[facility] and [facility]
--- OUTSIDE RECORDS SUMMARY | 2024-03-18 05:44 | XMS_ITS | Encounter Summary ---
Author Organization [employer] [facility] Address [address] [place] [address] Care Team Providers Care Server Assistant Name Role Phone Unknown, Provider Primary Care Provider Unavaila Cortney Gomez MD Unavailable [phone] Cortney Chandra MD Primary Care Provider [phone] Encounter Details Date Type Department Care Team (Late st Contact Info) Description 06/14/2018 Historical Conversion [facility] Family Medicine [address] [facility] [place] [address] Rosemary Aquino APRN,MANAGER TRANSFER [address] [place] [phone] Social History Tobacco Use Types Packs/Day Years Used Date Smoking Tobacco: Never Assessed Sex and Gender Information Value Date Recorded Sex Assigned at Not on file Gender Identity Female 01/16/2023 2:23 PM CDT Sexual Orientation Not on file documented as of this encounter Progress Notes * Rosemary Aquino, CHALINO,MANAGER TRANSFER - 06/14/2018 12:00 AM CST Assessment 1. Never smoked 2. Hematuria (599.70) (R31.9) 3. Urinary tract infection (599.0) (N39.0) Plan Start Cipro 500 mg 1 tab twice daily times 5 days. Start Pyridium as needed over the next 72 hours then discontinue. Urine culture will be sent and will notify her of those results as they become available. Urinalysis we are really unable to obtain due to color interference from the amount of bloodthat she had in her urine. I suspect E. coli. Follow-up in the clinic if she develops fever worsenin g of symptoms or failure to improve. She states her understanding. Plan Orders Hematuria UA - Culture if Indicated; Status:Complete; Done: [id number] 09:17AM Reason For Visit Patient in with blood in urine History of Present Illness 68-year-old female presents to the clinic today with complaints of gross hematuria starting this morning. Last night she noted urgency and urinary frequency. She has no history of hematuria. She is not having any flank pain or pelvic pain. Denies fever or vomiting. Histories Reviewed The following histories were reviewed in the [facility] at today's visit and are current: Past Medical History Social History Current Meds 1. Aspirin 81 MG TABS; ONE DAILY; Last Rx:14Mar2010 Ordered 2. Cyclobenzaprine HCl - 10 MG Oral Tablet; TAKE 1/2 TO 1 TABLET THREE TIMES DAILY; Therapy: 30Sep2010 to (Evaluate:[id number]) Requested for: 07Jul2016; Last Rx:07Jul2016 Ordered 3. Fluticasone Propionate 50 MCG/ACT Nasal Suspension; INSTILL 1 SPRAY DAILY IN EACH NOSTRIL; Therapy: 17Apr2009 to (Evaluate:14Apr2018) Requested for: 16Oct2017; Last Rx:16Oct2017 Ordered 4. Hydrocortisone 2.5 % External Cream; APPLY SPARINGLY TO AFFECTED AREA(S) TWICE DAILY; Therapy: 20Jul2015 to (Evaluate:11Gad1241) Requested for: 17Jul2017; Last Rx:17Jul2017 Ordered 5. Loratadine 10 MG Oral Tablet; TAKE 1 TABLET BY MOUTH DAILY NEEDED; Therapy: 42Obi2435 to (Evaluate:12Sep2018) Requested for: 17Sep2017; Last Rx:17Sep2017 Ordered 6. Losartan Potassium 100 MG Oral Tablet; TAKE 1 TABLET BY MOUTH ONCE DAILY; Therapy: 61Tqf9798 to (Evaluate:12Jul2018) Requested for: 17Jul2017; Last Rx:17Jul2017 Ordered 7. MetFORMIN HCl ER 500 MG Oral Tablet Extended Release 24 Hour; TAKE 4 TABLETS( 2000MG) BY MOUTH ONCE DAILY; Therapy: 03Dqb9117 to (Evaluate:12Jul2018) Requested for: 17Jul2017; Last Rx:17Jul2017 Ordered 8. One-Daily Multi Vitamins Oral Tablet; TAKE 1 TABLET DAILY; Therapy: (Recorded:23Jul2012) to Recorded 9. Simvastatin 20 MG Oral Tablet; TAKE ONE TABLET BY MOUTH DAILY; Therapy: 12Kmd7818 to (Evaluate:12Jul2018) Requested for: 17Jul2017; Last Rx:17Jul2017 Ordered 10. Ventolin HFA 108 (90 Base) MCG/ACT Inhalation Aerosol Solution; INHALE 1 TO 2 PUFFS EVERY 4 TO 6 HOURS NEEDED; Therapy: 06Mar2017 to (Last Rx:06Mar2017) Requested for: 06Mar2017 Ordered 11. Vitamin D3 1000 UNIT Oral Tablet; takes 2 tablets daily; Therapy: (Recorded:87Qyp1837) to Recorded Allergies 1. Ultram TABS Vitals Vital Signs Recorded: 14Jun2018 09:00AM Systolic 144, LUE, Sitting Diastolic 88, LUE, Sitting Heart Rate 78 Respiration 16 Temperature 98.5 F, Forehead Weight 87 kg BMI Calculated 32.74 BSA Calculated 1.93 Physical Exam General Appearance: OCTAVIO is healthy-appearing, alert, well nourished, well developed and in no acute distress. Abdomen: soft, non-tender, normal bowel sounds, no hepatosplenomegaly, no abdominal mass palpated and No CVA tenderness. Psychiatric: appropriate mood and affect, good eye contact and answers questions appropriately. Results/Data UA - Culture if Indicated 14Jun2018 09:17AM Rosemary Aquino Test Name Result Flag Reference Urinalysis-Color RED A Urinalysis- Appearance TURBD A Urinalysis-RBC TNTC A 0-4 UrinalysisA UNABLE TO PERFORM DIPSTICK DUE TO COLOR INTERFERENCE OF URINE MICROSCOPIC EXAM OBSCURRED BY RBCS Signatures Electronically signed by : Rosemary Aquino, RN MANAGER TRANSFER RN,MANAGER TRANSFER; Jun 14 2018 12:24PM HIGH SCHOOL GUIDANCE COUNSELOR Electronically signed by : Klever Nicole M.D.; Jul 15 2018 3:46PM HIGH SCHOOL GUIDANCE COUNSELOR documented in this encounter Plan of Treatment Not on file documented as of this encounter Visit Diagnoses Not on filedocumented in this encounter Care Teams Server Assistant Relationship Specialty Start Date End Date Unknown, Provider . HIRAM PEGUERO [id number] PCP - General 03/26/18 04/29/19 Cortney Chandra MD [address] [place] [phone] PCP - General Family Medicine 04/30/19 Cortney Chandra MD [address] [place] [phone] PCP Family Medicine 04/29/19 04/29/19 [facility] 03/30/23 Primary Eye Care 03/30/23 documented as of this encounter Additional Source Comments PLEASE NOTE: Replies to this message will not be received.[facility] and [facility]
--- OUTSIDE RECORDS SUMMARY | 2024-03-18 05:44 | XMS_ITS | Encounter Summary ---
Author Organization [employer] Address [address] [place] [address] Care Team Providers Care Carver And Checkerer Specials Name Role Phone Unknown, Provider Primary Care Provider UnavailCortney Dye MD Unavailable [phone] Cortney Chandra MD Primary Care Provider [phone] Encounter Details Date Type Department Care Team (Late st Contact Info) Description 12/25/2016 Historical Conversion [facility] Family Medicine [address] [place] [address]. [place] [address] Social History Tobacco Use Types Packs/Day Years Used Date Smoking Tobacco: Never Assessed Sex and Gender Information Value Date Recorded Sex Assigned at Not on file Gender Identity Female 01/16/2023 2:23 PM CDT Sexual Orientation Not on file documented as of this encounter Last Filed Vital Signs Vital Sign Reading Time Taken Comments Blood Pressure 128/84 12/25/2016 12:00 AM CDT Pulse - - Temperature - - Respiratory Rate - - Oxygen Saturation - - Inhaled Oxygen Concentration - - Weight 84.4 kg (186 lb 1.1 oz) 12/05/2016 12:00 AM CDT Height - - Body Mass Index 31.77 08/19/2016 12:00 AM LINING CLOSER documented in this encounter Plan of Treatment Not on file documented as of this encounter Visit Diagnoses Not on filedocumented in this encounter Care Teams Carver And Checkerer Specials Relationship Specialty Start Date End Date Unknown, [place] [address] PCP - General 03/26/18 04/29/19 Cortney Chandra MD [address] [place] [address] PCP - General Family Medicine 04/30/19 Cortney Chandra MD [address] [place] [phone] PCP Family Medicine 04/29/19 04/29/19 [facility] 03/30/23 Primary Eye Care 03/30/23 documented as of this encounter Additional Source Comments PLEASE NOTE: Replies to this message will not be received.[facility] and [facility]
--- OUTSIDE RECORDS SUMMARY | 2024-03-18 05:44 | XMS_ITS | Encounter Summary ---
Author Organization [employer] Address [address] [place] [address] Care Team Providers Care Feed House Supervisor Name Role Phone Unknown, Provider Primary Care Provider Unavaila ble Cortney Chandra MD Unavailable [phone] Cortney Chandra MD Primary Care Provider [phone] Encounter Details Date Type Department Care Team (Late st Contact Info) Description 08/10/2015 Historical Conversion [facility] Family Medicine [address] [place] [address] [place] [address] Cortney Chandra MD [address] [place] [address] Social History Tobacco Use Types Packs/Day Years Used Date Smoking Tobacco: Never Assessed Sex and Gender Information Value Date Recorded Sex Assigned at Not on file Gender Identity Female 01/16/2023 2:23 PM CDT Sexual Orientation Not on file documented as of this encounter Progress Notes * Cortney Chandra G - 08/10/2015 12:00 AM CST Chief Complaint/Reason for Visit Pt. presents today for c/o pain/tingling in Rt. arm. 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 Allergic rhinitis due to pollen (477.0) (J30.1) 2. Health examination of defined subpopulation (V70.5) (Z00.8) 3. History of fibrocystic disease of breast (V13.89) (Z87.898) 4. History of (V13.29) 5. Hyperlipidemia (272.4) (E78.5) 6. Joint pain, knee (719.46) (M25.569) 7. Neck pain (723.1) (M54.2) 8. Screening for thyroid disorder (V77.0) (Z13.29) 9. 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 History of Vision Assessment 11. Visit for screening mammogram (V76.12) (Z12.31) Surgical History 1. History of Biopsy Breast Open 2. History of Colonoscopy (Fiberoptic) 3. History of Complete Colonoscopy 4. History of Hysterectomy Current Meds 1. Aspirin 81 MG Oral Tablet; ONE DAILY; Last Rx:[id number] Ordered 2. Calcium 600/Vitamin D3 TABS; 1 TAB EVERDAY; Therapy: (Recorded:23Jul2012) to Recorded 3. Cheratussin AC 100-10 MG/5ML Oral Syrup; TAKE 10 ML EVERY 4 TO 6 HOURS NEEDED; Therapy: 05Oct2012 to (Evaluate:25Apr2015); Last Rx:17Apr2015 Ordered 4. Cyclobenzaprine HCl - 10 MG Oral Tablet; TAKE 1/2 TO 1 TABLET THREE TIMES DAILY; Therapy: 30Sep2010 to (Evaluate:19Sep2014) Requested for: 04Sep2014; Last Rx:04Sep2014 Ordered 5. Fluticasone Propionate 50 MCG/ACT Nasal Suspension; INSTILL 1 SPRAY DAILY IN EACH NOSTRIL; Therapy: 17Apr2009 to (Evaluate:37Fjo9113) Requested for: 09May2014; Last Rx:09May2014 Ordered 6. Hydrocortisone 2.5 % External Cream; APPLY SPARINGLY TO AFFECTED AREA(S) TWICE DAILY; Therapy: 20Jul2015 to (Last Rx:20Jul2015) Requested for: 20Jul2015 Ordered 7. Loratadine 10 MG Oral Tablet; TAKE 1 TABLET BY MOUTH DAILY NEEDED; Therapy: 03Svv7452 to (Evaluate:53Bhx3889) Requested for: 08Xxr5249; Last Rx:97Ajm0238 Ordered 8. Losartan Potassium 100 MG Oral Tablet; TAKE 1 TABLET BY MOUTH ONCE DAILY; Therapy: 99Fvx8994 to (Evaluate:14Jul2016) Requested for: 20Jul2015; Last Rx:20Jul2015 Ordered 9. MetFORMIN HCl ER 500 MG Oral Tablet Extended Release 24 Hour; TAKE 4 TABLETS( 2000MG) BY MOUTH ONCE DAILY; Therapy: 50Jjb9656 to (Evaluate:14Jul2016) Requested for: 20Jul2015; Last Rx:20Jul2015 Ordered 10. One-Daily Multi Vitamins Oral Tablet; TAKE 1 TABLET DAILY; Therapy: (Recorded:23Jul2012) to Recorded 11. ProAir HFA 108 (90 Base) MCG/ACT Inhalation Aerosol Solution; INHALE 2 PUFFS EVERY 4 HOURS NEEDED FOR COUGHAND WHEEZE; Therapy: 26May2008 to (Last Rx:14May2015) Requested for: 14May2015 Ordered 12. Simvastatin 20 MG Oral Tablet; TAKE ONE TABLET BY MOUTH DAILY; Therapy: 62Thj0349 to (Evaluate:14Jul2016) Requested for: 20Jul2015; Last Rx:20Jul2015 Ordered 13. Vitamin D3 1000 UNIT Oral Tablet; 1 tab everyday; Therapy: (Recorded:23Jul2012) to Recorded Allergies 1. Ultram TABS Family History Father 1. Family history of hypertension (V17.49) 2. Family history of Tracheitis, Acute ?? age 55 Sister 3. Family history of diabetes mellitus (V18.0) 4. Family history of heart disease (V17.49) Maternal Grandfather 5. Family history of colon cancer (V16.0) Social History 1. marital history - currently 2. Never smoked Vitals Vital Signs [Data Includes: Current Encounter] Recorded: 74Cmk2452 02:56PM Blood Pressure 136 / 92, RUE, Sitting Heart Rate 102, L Radial Pulse Quality Normal, L Radial Respiration 14 Respiration Quality Normal Temperature 98.8 F, Tympanic Weight 88.2 kg BMI Calculated 32.79 BSA Calculated 1.95 O2 Saturation 99, RA Patient Encounter SUBJECTIVE: Sumaya is here today for evaluation of right shoulder and arm pain. Sumaya states shefeels as if something is coming from her posterior shoulder and neck area and radiating down her arm. She gets a tingling feeling and some aching although she is not noticed any weakness. She says attimes it feels numb. She cannot recall anything she did to cause this but she does have known arthri tis. It is not keeping her up at night and seems to be staying about the same although some days are better than others. OBJECTIVE: Sumaya is alert and in no distress. Her grasps are equal. She is able to move her shoulder normally against gravity and also is able to move her arm against gravity without difficulty. She has some pain in the posterior shoulder on palpation of the deep musculature and has normal DTRs. The numbness that she has in her arm go along the outer aspect of the arm and suggests radiculopathy. PLAN: 1. We decided to try a short course of Prednisone and we will also get her started with physical therapy as she prefers conservative measures and she will followup if things do not improve. Cortney Chandra M.D./mkw- 17 Assessment 1. Never smoked 2. Cervical radiculopathy (723.4) (M54.12) Plan 1. PT Consult Consult Only Evaluation and Treatment- eval and treat cervical arthritis with impingement- ?cervical traction would benefit Status: Active Requested for: 48Aon5249 Care Summary provided. : Yes With: : [facility] PT/OT DEPT Related: : No Encounter: : No Phone Number to Contact Patient: : home [phone] to Provider, Practice or Agency: : PT at [facility] 2. PredniSONE 20 MG Oral Tablet; TAKE 2 TABLET DAILY Signatures Electronically signed by : Cortney Chandra M.D.; Aug 22 2015 9:54AM CONFIGURATION MANAGEMENT ADMINISTRATOR documented in this encounter Plan of Treatment Not on file documented as of this encounter Visit Diagnoses Not on filedocumented in this encounter Care Teams Feed House Supervisor Relationship Specialty Start Date End Date Unknown, Provider . HIRAM PEGUERO [address] PCP - General 03/26/18 04/29/19 Cortney Chandra MD [address] [place] [address] PCP - General Family Medicine 04/30/19 Cortney Chandra MD [address] [place] [phone] PCP Family Medicine 04/29/19 04/29/19 [facility] 03/30/23 Primary [facility] 03/30/23 documented as of this encounter Additional Source Comments PLEASE NOTE: Replies to this message will not be received.[facility] and [facility]
--- OUTSIDE RECORDS SUMMARY | 2024-03-18 05:44 | XMS_ITS | Encounter Summary ---
Author Organization [employer] Address [address] [place] [address] Care Team Providers Care Guide Rail Cleaner Name Role Phone Unknown, Provider Primary Care Provider Unavaila ble Cortney Chandra MD Unavailable Cortney Chandra MD Primary Care Provider [phone]- [phone] Encounter Details Date Type Department Care Team (Late st Contact Info) Description 08/30/2018 Historical Conversion [facility] Family Medicine [address] [place] [address] [place] [address] Cortney Chandra MD [address] [place] [address] Social History Tobacco Use Types Packs/Day Years Used Date Smoking Tobacco: Never Assessed Sex and Gender Information Value Date Recorded Sex Assigned at Not on file Gender Identity Female 01/16/2023 2:23 PM CDT Sexual Orientation Not on file documented as of this encounter Progress Notes * Cortney Chandra MD - 08/30/2018 12:00 AM CST Assessment 1. Never smoked 2. Lumbar pain (724.2) (M54.5) 3. Controlled diabetes mellitus (250.00) (E11.9) 4. 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 Hyperlipidemia (272.4) (E78.5) 6. Vitamin D deficiency (268.9) (E55.9) 7. Fatigue (780.79) (R53.83) HTN, controlledback pain, increasing. Known hx DJD Plan 1. COntinue Losartan at dose of 100 mg dailyMRI of lumbar spine ordered- will plan PT once we know where things are at with her back.Recheck BP again in 4-6 weeks Plan Orders Fatigue Drawing Fee; Status:Complete; Done: 64Kot9350 Reason For Visit Pt. presents today for blood pressure and back. Derick OSORIO History of Present Illness OCTAVIO is a 68 year old female here for follow up of the following: Octavio is here today with two concerns. First, she had been in for a UTI and saw Angeles Hartman and was noted to have elevation of her BP. Angeles did some adjusting of her meds and had asked her to follow up with me. Second, she wants to discuss her back. She is noting that when she is on her feet or walking too long, her lower back aches and there is some radiation of the pain down her buttocks. She does not note numbness or weakness. She is otherwise doing well. Review of Systems Constitutional: no fever, no chills and no fatigue. Cardiovascular: no chest pain, no palpitations, no lower extremity edema, no lightheadedness and the heart is not racing. Respiratory: no cough and no shortness of breath. Gastrointestinal: no nausea and no vomiting. Musculoskeletal: back pain and back muscle spasm, but as noted in HPI. Integumentary and Breasts: no rashes. Current Meds 1. Aspirin 81 MG TABS; ONE DAILY; Last Rx:64Ozx0974 Ordered 2. Cyclobenzaprine HCl - 10 MG Oral Tablet; TAKE 1/2 TO 1 TABLET THREE TIMES DAILY; Therapy: 30Sep2010 to (Evaluate:88Tce5080) Requested for: 07Jul2016; Last Rx:07Jul2016 Ordered 3. Fluticasone Propionate 50 MCG/ACT Nasal Suspension; INSTILL 1 SPRAY DAILY IN EACH NOSTRIL; Therapy: 17Apr2009 to (Evaluate:14Apr2018) Requested for: 16Oct2017; Last Rx:16Oct2017 Ordered 4. Hydrocortisone 2.5 % External Cream; APPLY SPARINGLY TO AFFECTED AREA(S) TWICE DAILY; Therapy: 20Jul2015 to (Evaluate:33Ufx8766) Requested for: 17Jul2017; Last Rx:17Jul2017 Ordered 5. Loratadine 10 MG Oral Tablet; TAKE 1 TABLET BY MOUTH DAILY NEEDED; Therapy: 74Vxj1957 to (Evaluate:12Sep2018) Requested for: 17Sep2017; Last Rx:17Sep2017 Ordered 6. Losartan Potassium 100 MG Oral Tablet; TAKE 1 TABLET BY MOUTH ONCE DAILY; Therapy: 99Xwg3185 to (Evaluate:10Jul2019) Requested for: 15Jul2018; Last Rx:15Jul2018 Ordered 7. metFORMIN HCl ER 500 MG Oral Tablet Extended Release 24 Hour; TAKE 4 TABLETS( 2000MG) BY MOUTH ONCE DAILY; Therapy: 54Qfa1856 to (Evaluate:18Jul2019) Requested for: 23Jul2018; Last Rx:23Jul2018 Ordered 8. One-Daily Multi Vitamins Oral Tablet; TAKE 1 TABLET DAILY; Therapy: (Recorded:23Jul2012) to Recorded 9. Pyridium 100 MG Oral Tablet; TAKE 1 TABLET 3 TIMES DAILY AFTER MEALS NEEDED; Therapy: 28Gnk4032 to (Last Rx:83Lgq6011) Requested for: 14Jun2018 Ordered 10. Simvastatin 20 MG Oral Tablet; TAKE ONE TABLET BY MOUTH DAILY; Therapy: 61Uem7665 to (Evaluate:10Jul2019) Requested for: 15Jul2018; Last Rx:15Jul2018 Ordered 11. Ventolin HFA 108 (90 Base) MCG/ACT Inhalation Aerosol Solution; INHALE 1 TO 2 PUFFS EVERY 4 TO 6 HOURS NEEDED; Therapy: 06Mar2017 to (Last Rx:24Axx3975) Requested for: 59Rdh0666 Ordered 12. Vitamin D3 1000 UNIT Oral Tablet; takes 2 tablets daily; Therapy: (Recorded:25Ljz8116) to Recorded Allergies 1. Ultram TABS Vitals Vital Signs Recorded: 30Aug2018 10:18AM Systolic 124, LUE, Sitting Diastolic 76, LUE, Sitting Heart Rate 86, L Radial Pulse Quality Normal, L Radial Respiration Quality Normal Respiration 16 Temperature 98.7 F, Tympanic Height 162.5 cm Weight 88.5 kg BMI Calculated 33.51 BSA Calculated 1.93 O2 Saturation 96, RA Physical Exam General Appearance: OCTAVIO is healthy-appearing and in no acute distress. Head and Face: normocephalic and no sinus tenderness. Eyes: pupils were equal, round, reactive to light, with normal accommodation and the sclera and conjunctiva were normal Neck: supple and no lymphadenopathy. Pulmonary: normal bilateral breath sounds and clear to auscultation bilaterally. Cardiovascular: normal heart rate and rhythm and no murmurs heard. Neurologic: reflexes are 2+ and symmetric and no weakness in legs. Signatures Electronically signed by : Cortney Chandra M.D.; Sep 12 2018 4:16PM SALES REPRESENTATIVE GIRLS' APPAREL documented in this encounter Plan of Treatment Not on file documented as of this encounter Visit Diagnoses Not on filedocumented in this encounter Care Teams Guide Rail Cleaner Relationship Specialty Start Date End Date Unknown, Provider . [facility] [address] PCP - General 03/26/18 04/29/19 Cortney Chandra MD [address] [place] [address] PCP - General Family Medicine 04/30/19 Cortney Chandra MD [address] [place] [address] PCP Family Medicine 04/29/19 04/29/19 [facility] 03/30/23 Primary Eye Care 03/30/23 documented as of this encounter Additional Source Comments PLEASE NOTE: Replies to this message will not be received.[facility] and [facility]
--- OUTSIDE RECORDS SUMMARY | 2024-03-18 05:44 | XMS_ITS | Encounter Summary ---
Author Organization [employer] Address [address] [place] [address] Care Team Providers Care Rental Clerk Tool And Equipment Name Role Phone Cortney Chandra MD Primary Care Provider [phone]- [phone] Reason for Visit * Reason Onset Date Comments Refill Request 02/19/2024 Encounter Details Date Type Department Care Team ([facility] st Contact Info) Description 02/19/2024 Refill [facility] Medicine [address] [place] [address] Cortney Chandra MD [address] [place] [address] Dx: Type 2 diabetes mellitus with stage 1 chronic kidney disease, without long-term current use of insulin (HCC) (Primary Dx) Social History Tobacco Use Types Packs/Day Years Used Date Smoking Tobacco: Never Smokeless Tobacco: Never Alcohol Use Standard Drinks/Week Comments Never 0 (1 standard drink = 0.6 oz pur e alcohol) [facility] Utilities Answer Date Recorded In the past 12 months has e electric, gas, oil, or water company threatened to shut off services in your [...] How often do you attend chur or amish services? More than 4 times per year 08/15/2023 Do you belong to any clubs o r organizations such as faith groups, unions, fraternal or athletic groups, or [...] and heating? Not hard at all 08/15/2023 [facility] of Occupat ional Health - Occupational Stress [...] place to sleep or slept in a half-way (including now)? No 08/15/2023 Depression (PHQ-9) Answer [...] as of this encounter Visit Diagnoses Diagnosis Type 2 diabetes mellitus with stage 1 chronic kidney disease, without long-term current use of insulin (HCC)- Primary documented in this encounter Care Teams Rental Clerk Tool And Equipment Relationship Specialty Start Date End Date Cortney Chandra MD [address] [place] [phone] PCP - General Family Medicine 04/30/19 [facility] 03/30/23 Primary Eye Care 03/30/23 documented as of this encounter Additional Source Comments PLEASE NOTE: Replies to this message will not be received.[facility] and [facility]
--- OUTSIDE RECORDS SUMMARY | 2024-03-18 05:44 | XMS_ITS | Encounter Summary ---
Author Organization [employer] Address [address] [place] [address] Care Team Providers Care Lock Tender Chief Operator Name Role Phone Unknown, Provider Primary Care Provider Unavaila Cortney Gomez MD Unavailable [phone] Cortney Chandra MD Primary Care Provider [phone] Encounter Details Date Type Department Care Team (Late st Contact Info) Description 03/26/2018 Historical Conversion [facility] [address] [place] [address] [address] Angeles Hartman, CHALINO,DIRECT SALES CONSULTANT [address] [place] [address] Social History Tobacco Use Types Packs/Day Years Used Date Smoking Tobacco: Never Assessed Sex and Gender Information Value Date Recorded Sex Assigned at Not on file Gender Identity Female 01/16/2023 2:23 PM CDT Sexual Orientation Not on file documented as of this encounter Progress Notes * Angeles Hartman, CHALINO,DIRECT SALES CONSULTANT - 03/26/2018 12:00 AM CDT Assessment 1. At risk for falls (V15.88) (Z91.81) 2. Dystrophic nail (703.8) (L60.3) 3. Onychomycosis (110.1) (B35.1) Plan 1. Discussed that this looks like onychomycosis. We discussed potential treatment. We first send itfor culture to help differentiate what medicine would work best. Discussed medication is more of a long-term taking potentially 6-9 months of treatment. We discussed oral medications in addition to anail lacquer. We discussed potential recurrence as well is quite high. nails are trimmed back to about three quarters of length that they were. Samples from the left thumbnail sent in for fungal culture. We discussed keeping the area dry and try to remove the debris under the nail itself. Discussed that it may take up to 6 weeks prior to getting culture results back. Should be notified of these when they return. Plan Orders Depression screening At your visit today we identified that you may be at risk for future falls. Below are some helpful tips to help you prevent falls: - Keep trip hazards like throw rugs out of your home and put safety rails in the bathtub or shower. - Exercise to help build your strength. - Have your eyesight checked and your medications reviewed. Please call if you have fallen or if you almost fall.; Status:Complete; Done: 27Qdq1792 At your visit today we screened for depression and found that you may be at risk for depression. Please see below for ways to decrease your stress and improve your sense of well-being. We encourage you to: - Keep active and exercise regularly. - Make time to take care of yourself and participate in activities that you enjoy. - Stay connected to friends and family that can support and comfort you. If at any time you have thoughts of harming yourself or someone else, contact us or seek medical attention immediately.; Status:Complete; Done: 04Ics0655 Dystrophic nail, Onychomycosis Fungus Culture (Skin.Hair,Nails ONLY); Status:Active; Requested for:74Rhk5561; culture skin source : left thumb nail SocHx: Never smoked Never Smoked: Since tobacco use can have significant health risks, you are helping yourself and others stay healthy by never smoking.; Status:Complete; Done: 49Ljy9071 Reason For Visit Discoloration of finger nails History of Present Illness 68-year-old female seen today with concerns regarding her bilateral thumbs. Typically she gets her nails done on a regular basis but noticed now that the nails are discolored. This is been several months that she has noticed this. She believes that is growing out but is not certain. She has never had this before. She does have type 2 diabetes. Review of Systems Constitutional: no fever, no chills, no recent weight gain and no recent weight loss. Integumentary and Breasts: as noted in HPI, no rashes, no erythema and no skin wound(s). Histories Reviewed The following histories were reviewed in the [facility] at today's visit and are current: Past Medical History Past Surgical History Social History Current Meds 1. Aspirin 81 MG TABS; ONE DAILY; Last Rx:63Dxq3215 Ordered 2. Cheratussin AC 100-10 MG/5ML Oral Syrup; TAKE 10 ML EVERY 4 TO 6 HOURS NEEDED; Therapy: 05Oct2012 to (Evaluate:48Bqf2758); Last Rx:22Eof5632 Ordered 3. Cyclobenzaprine HCl - 10 MG Oral Tablet; TAKE 1/2 TO 1 TABLET THREE TIMES DAILY; Therapy: 30Sep2010 to (Evaluate:27Xyj9850) Requested for: 07Jul2016; Last Rx:07Jul2016 Ordered 4. Fluticasone Propionate 50 MCG/ACT Nasal Suspension; INSTILL 1 SPRAY DAILY IN EACH NOSTRIL; Therapy: 17Apr2009 to (Evaluate:14Apr2018) Requested for: 16Oct2017; Last Rx:16Oct2017 Ordered 5. Hydrocortisone 2.5 % External Cream; APPLY SPARINGLY TO AFFECTED AREA(S) TWICE DAILY; Therapy: 20Jul2015 to (Evaluate:39Sjw4325) Requested for: 17Jul2017; Last Rx:17Jul2017 Ordered 6. Loratadine 10 MG Oral Tablet; TAKE 1 TABLET BY MOUTH DAILY NEEDED; Therapy: 26Mim4689 to (Evaluate:12Sep2018) Requested for: 17Sep2017; Last Rx:17Sep2017 Ordered 7. Losartan Potassium 100 MG Oral Tablet; TAKE 1 TABLET BY MOUTH ONCE DAILY; Therapy: 00Wno5389 to (Evaluate:12Jul2018) Requested for: 17Jul2017; Last Rx:17Jul2017 Ordered 8. MetFORMIN HCl ER 500 MG Oral Tablet Extended Release 24 Hour; TAKE 4 TABLETS( 2000MG) BY MOUTH ONCE DAILY; Therapy: 62Sln1156 to (Evaluate:12Jul2018) Requested for: 17Jul2017; Last Rx:17Jul2017 Ordered 9. One-Daily Multi Vitamins Oral Tablet; TAKE 1 TABLET DAILY; Therapy: (Recorded:23Jul2012) to Recorded 10. Simvastatin 20 MG Oral Tablet; TAKE ONE TABLET BY MOUTH DAILY; Therapy: 23Xpr1229 to (Evaluate:12Jul2018) Requested for: 17Jul2017; Last Rx:17Jul2017 Ordered 11. Ventolin HFA 108 (90 Base) MCG/ACT Inhalation Aerosol Solution; INHALE 1 TO 2 PUFFS EVERY 4 TO 6 HOURS NEEDED; Therapy: 06Mar2017 to (Last Rx:06Mar2017) Requested for: 06Mar2017 Ordered 12. Vitamin D3 1000 UNIT Oral Tablet; takes 2 tablets daily; Therapy: (Recorded:12Xcq2982) to Recorded Allergies 1. Ultram TABS Vitals Vital Signs Recorded: 26Mar2018 11:25AM Systolic 150 Diastolic 90 Heart Rate 83 Respiration 16 Temperature 99 F Weight 87.1 kg BMI Calculated 32.78 BSA Calculated 1.93 2+ Falls or 1 Fall with injury in last year? No O2 Saturation 94, RA Physical Exam General Appearance: OCTAVIO is healthy-appearing, alert, well nourished, well developed and in no acute distress. Head and Face: normocephalic. Skin: Fair complexion. The other 8 fingers are covered with nail mauritanian but the 2 thumbs show blackdiscoloration under the nail bed three quarters of the way down with the proximal nailbed being free of any disease. The left thumb is worse in the right thumb. The nail has loosened and is not adherent to the distal half of the thumb. Psychiatric: appropriate mood and affect, good eye contact and answers questions appropriately. Signatures Electronically signed by : Angeles Hartman RN DIRECT SALES CONSULTANT RN,DIRECT SALES CONSULTANT; Mar 26 2018 1:29PM PROGRAM PROJECT ANALYST documented in this encounter Plan of Treatment Not on file documented as of this encounter Visit Diagnoses Not on filedocumented in this encounter Care Teams Lock Tender Chief Operator Relationship Specialty Start Date End Date Unknown, Provider . HIRAM PEGUERO [address] PCP - General 03/26/18 04/29/19 Cortney Chandra MD [address] [place] [phone] PCP - General Family Medicine 04/30/19 Cortney Chandra MD [address] [place] [phone] PCP Family Medicine 04/29/19 04/29/19 [facility] 03/30/23 Primary Eye Care 03/30/23 documented as of this encounter Additional Source Comments PLEASE NOTE: Replies to this message will not be received.[facility] and [facility]
--- OUTSIDE RECORDS SUMMARY | 2024-03-18 05:44 | XMS_ITS | Encounter Summary ---
Author Organization [employer] Address [address] [place] [address] Care Team Providers Care Government Gauger Name Role Phone Unknown, Provider Primary Care Provider Unavaila ble Cortney Chandra MD Unavailable [phone] Cortney Chandra MD Primary Care Provider [phone] Encounter Details Date Type Department Care Team (Late st Contact Info) Description 11/18/2013 Historical Conversion [facility] Family Medicine [address] [place] [address] [place] [address] Cortney Chandra MD [address] [place] [address] Social History Tobacco Use Types Packs/Day Years Used Date Smoking Tobacco: Never Assessed Sex and Gender Information Value Date Recorded Sex Assigned at Not on file Gender Identity Female 01/16/2023 2:23 PM CDT Sexual Orientation Not on file documented as of this encounter Last Filed Vital Signs Vital Sign Reading Time Taken Comments Blood Pressure 118/70 11/18/2013 12:00 AM CDT Pulse - - Temperature - - Respiratory Rate - - Oxygen Saturation - - Inhaled Oxygen Concentration - - Weight 87.1 kg (192 lb) 11/18/2013 12:00 AM CDT Height 163.8 cm (5' 4.5) 11/18/2013 12:00 AM CD T Body Mass Index 32.45 11/18/2013 12:00 AM CDT documented in this encounter Progress Notes * Cortney Chandra G - 11/18/2013 12:00 AM CDT Chief Complaint/Reason for Visit Pt presented to the clinic today with neck pain for a while.JTurckLPN Past Medical History 1. Allergic rhinitis due to pollen (477.0) (J30.1) 2. History of Complete Colonoscopy 3. Dysuria (788.1) (R30.0) 4. Health examination of defined subpopulation (V70.5) (Z00.8) 5. History of fibrocystic disease of breast (V13.89) (Z87.898) 6. Hyperlipidemia (272.4) (E78.5) 7. Joint pain, knee (719.46) (M25.569) 8. History of Need for DTaP and Hib vaccine (V06.8,V03.81) (Z23) 9. Screening for thyroid disorder (V77.0) (Z13.29) 10. Sebaceous cyst (706.2) (L72.3) 11. Urinary tract infection (599.0) (N39.0) 12. History of Vision Assessment 13. Visit for screening mammogram (V76.12) (Z12.31) Surgical History 1. History of Biopsy Breast Open 2. History of Hysterectomy Allergies 1. Ultram TABS Family History Father 1. Family history of Hypertension (V17.49) 2. Family history of Tracheitis, Acute ?? age 55 Sister 3. Family history of Diabetes Mellitus (V18.0) 4. Family history of Heart Disease (V17.49) Maternal Grandfather 5. Family history of Colon Cancer (V16.0) ?? at age 60 Social History 1. Marital History - Currently 2. Never smoked Vitals Vital Signs [Data Includes: Current Encounter] Recorded by : Marya Lyons at [id number] 10:47AM Blood Pressure 118 / 70, LUE, Standing Heart Rate 76, L Radial Pulse Quality Normal, L Radial Respiration 18 Respiration Quality Normal Height 64.5 in Weight 192.0 lb BMI Calculated 32.45 BSA Calculated 1.93 Patient Encounter SUBJECTIVE: Sumaya is here for evaluation of neck pain. She cannot recall any acute injury but shehas noted over the last several months a clicking sensation in her neck when she turns her neck tooquickly. 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 She is also careful with lifting and straining herself at home as she has a low back past injury. She does not have any radiculopathy type symptoms but she is wondering what is going on with her neck. She would consider physical therapy but is not interested at all in a surgical procedure. She would, however, like to, if possible, have advanced imaging so that she can at least know where she is at with her neck in terms of activity level and starting an exercise program to help preserve function. OBJECTIVE: On exam, Sumaya is alert. She is in no acute distress. Her neck has full range of motion. She has no cervical spine tenderness. She does have some tight paraspinous musculature. The clicking sensation she describes, I believe, is probably facet joint movement but I could not reproduce it here today. Deep tendon reflexes are symmetric at biceps and triceps and her strength is grossly symmetric. IMPRESSION: Neck pain and clicking sensation likely related to degenerative arthritis. PLAN: We will plan to see if we can get an MRI so that we at least know her anatomy and can plan for future care of the neck, particularly if she has progressive arthritis like her mother did. Cortney Chandra M.D./lb-03 Assessment 1. Neck pain (723.1) (M54.2) Plan 1. Changed: From Cyclobenzaprine HCl - 10 MG Oral Tablet TAKE ONE TABLET BY MOUTH THREE TIMES DAILY To Cyclobenzaprine HCl - 10 MG Oral Tablet TAKE ONE TABLET BY MOUTH NEEDED Signatures Electronically signed by : Cortney Chandra M.D.; Dec 07 2013 11:16AM documented in this encounter Plan of Treatment Not on file documented as of this encounter Visit Diagnoses Not on filedocumented in this encounter Care Teams Government Gauger Relationship Specialty Start Date End Date Unknown, Provider . HIRAM PEGUERO [id number] PCP - General 03/26/18 04/29/19 Cortney Chandra MD [address] [place] [phone] PCP - General Family Medicine 04/30/19 Cortney Chandra MD [address] [place] [address] PCP Family Medicine 04/29/19 04/29/19 [facility] 03/30/23 Primary Eye Care 03/30/23 documented as of this encounter Additional Source Comments PLEASE NOTE: Replies to this message will not be received.[facility] and [facility]
--- OUTSIDE RECORDS SUMMARY | 2024-03-18 05:44 | XMS_ITS | Encounter Summary ---
Author Organization [employer] Address [address] [place] [address] Care Team Providers Care Spring Former Hand Name Role Phone Unknown, Provider Primary Care Provider Unavaila ble Cortney Chandra MD Unavailable [phone] Cortney Chandra MD Primary Care Provider [phone] Encounter Details Date Type Department Care Team (Late st Contact Info) Description 09/28/2018 Historical Conversion [facility] Family Medicine [address] [place] [address]. [place] [address] Cortney Chandra MD [address] [place] [address] Social History Tobacco Use Types Packs/Day Years Used Date Smoking Tobacco: Never Assessed Sex and Gender Information Value Date Recorded Sex Assigned at Not on file Gender Identity Female 01/16/2023 2:23 PM CDT Sexual Orientation Not on file documented as of this encounter Last Filed Vital Signs Vital Sign Reading Time Taken Comments Blood Pressure 118/78 09/28/2018 12:00 AM CDT Pulse - - Temperature - - Respiratory Rate - - Oxygen Saturation - - Inhaled Oxygen Concentration - - Weight 87.9 kg (193 lb 12.6 oz) 019 12:00 AM CDT Height 162.5 cm (5' 3.98) 09/28/2018 1 2:00 AM CDT Body Mass Index 33.29 09/28/2018 12:00 AM CDT documented in this encounter H&P Notes * Cortney Chandra MD - 09/28/2018 12:00 AM CDT Assessment 1. Encounter for preventive health examination (V70.0) (Z00.00) 2. Controlled diabetes mellitus (250.00) (E11.9) 3. 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 Hyperlipidemia (272.4) (E78.5) 68 yo female with controlled type 2 DM, HTN and hyperlipidemia, doing well.back pain with poor corestrength- starting PT Plan Discussed diet, exercise, calcium vit D and self caremeds unchangedjust watch hemorrhoids for now as not botheringMedicare forms Plan Orders Screening for colon cancer Colonoscopy Consult Only Evaluation and Treatment- requests Dr Randolph Chandra for colonscopy Status: Active Requested for: 06Dec2018 Care Summary provided. : Yes patient aware of the appointment date and time? : No Phone Number to Contact Patient: : home or cell to Provider, Practice or Agency: : Dr Randolph Chandra Reason For Visit Patient presents for annual medicare physcal. DIPTI Parikh History of Present Illness This 68-year-old female is here today for Medicare annual wellness exam and is doing well. Her onlyconcerns are that she continues with some back discomfort. She just started physical therapy a weekago so is hoping she can gain some strength and endurance. Meantime the back bothers her is when she is on her feet for long periods of time or walking for the throbbing with gaining more strength things will improve. Her hemorrhoids have also bothered her off and on and she just wanted to mention this today. She does not really think she needs any treatment for them but just wanted to have me look at them. Her history is positive for hypertension, hyperlipidemia, and type 2 diabetes mellitus. She had recent lab work and all aspects of this are under good control. Review of Systems Constitutional: no fever,\R\b0no chills,\R\b0no recent weight gain,\R\b0no recent weight loss\R\R\b0no fatigue. Head and Face: no facial pain\R\R\b0no facial pressure. Eyes: eyes not red,\R\b0no watery discharge from the eyes\R\R\b0no purulent discharge from the eyes. ENT: no sore throat,\R\b0no nasal congestion,\R\b0no nasal discharge\R\R\b0no hearing loss. Cardiovascular: no chest pain,\R\b0no palpitations\R\R\b0no lower extremity edema. Respiratory: no cough,\R\b0no shortness of breath\R\R\b0no wheezing. Gastrointestinal: no nausea,\R\b0no vomiting,\R\b0no diarrhea,\R\b0no constipation\R\R\b0no abdominal pain. Genitourinary: no dysuria,\R\b0no frequency,\R\b0no urgency,\R\b0no hematuria\R\R\b0no unexplained vaginal bleeding. Musculoskeletal: back pain\R\R\b0back muscle spasm, but\R\b0no generalized muscle aches,\R\b0no diffuse joint pain,\R\b0no joint swelling\R\R\b0no joint stiffness. Integumentary and Breasts: no rashes,\R\b0no erythema,\R\b0no breast lumps / masses\R\R\b0no breastpain. Neurological: difficulty walking\R\R\b0leg weakness, but\R\b0no headache,\R\b0no dizziness,\R\b0no fainting\R\R\b0no tingling. Psychiatric: no anxiety,\R\b0no depression\R\R\b0no insomnia. Endocrine: no hot flashes,\R\b0no night sweats\R\R\b0no feelings of weakness. Hematologic and Lymphatic: no swollen glands\R\R\b0no tendency for easy bruising. Past Medical History 1. Allergic rhinitis due to pollen (477.0) (J30.1) 2. At risk for falls (V15.88) (Z91.81) 3. Cervical radiculopathy (723.4) (M54.12) 4. Degenerative disc disease (722.6) 5. Depression screening (V79.0) (Z13.31) 6. Fatigue (780.79) (R53.83) 7. H/O malignant neoplasm of skin (V10.83) (Z85.828) 8. Health examination of defined subpopulation (V70.5) (Z02.89) 9. Hematuria (599.70) (R31.9) 10. History of fibrocystic disease of breast (V13.89) (Z87.898) 11. History of (V13.29) ?? 12. Hyperlipidemia (272.4) (E78.5) 13. Increased urinary frequency (788.41) (R35.0) 14. Joint pain, knee (719.46) (M25.569) 15. Lumbar pain (724.2) (M54.5) 16. Neck pain (723.1) (M54.2) 17. 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 Screening for colon cancer (V76.51) (Z12.11) 19. Screening for thyroid disorder (V77.0) (Z13.29) 20. Skin cancer of trunk (173.50) (C44.599) 21. 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 Urinary symptom or sign (788.99) (R39.9) 23. History of Vision Assessment 24. Visit for screening mammogram (V76.12) (Z12.31) 25. Vitamin D deficiency (268.9) (E55.9) Surgical History 1. History of Biopsy Breast Open ?? /1980 2. History of Colonoscopy (Fiberoptic) 3. History of Complete Colonoscopy ?? 2001,07/2007 4. History of Hysterectomy ?? pelvic floor repair also 05/09/94 Family History Father 1. Family history of Hypertension (V17.49) 2. Family history of Tracheitis, Acute ?? age 55 Sister 3. Family history of Diabetes Mellitus (V18.0) 4. Family history of Heart Disease (V17.49) Maternal Grandfather 5. Family history of Colon Cancer (V16.0) ?? at age 60 Social History 1. Marital History - Currently 2. Never smoked Current Meds 1. Aspirin 81 MG TABS; ONE DAILY; Last Rx:14Mar2010 Ordered 2. Cyclobenzaprine HCl - 10 MG Oral Tablet; TAKE 1/2 TO 1 TABLET THREE TIMES DAILY; Therapy: 30Sep2010 to (Evaluate:65Plm0889) Requested for: 07Jul2016; Last Rx:07Jul2016 Ordered 3. Fluticasone Propionate 50 MCG/ACT Nasal Suspension; INSTILL 1 SPRAY DAILY IN EACH NOSTRIL; Therapy: 17Apr2009 to (Evaluate:14Apr2018) Requested for: 73Aad4362; Last Rx:16Oct2017 Ordered 4. Hydrocortisone 2.5 % External Cream; APPLY SPARINGLY TO AFFECTED AREA(S) TWICE DAILY; Therapy: 20Jul2015 to (Evaluate:72Nzr0006) Requested for: 10Sep2018; Last Rx:10Sep2018 Ordered 5. Loratadine 10 MG Oral Tablet; TAKE 1 TABLET BY MOUTH DAILY NEEDED; Therapy: 55Kzq0174 to (Last Rx:10Sep2018) Requested for: 10Sep2018 Ordered 6. Losartan Potassium 100 MG Oral Tablet; TAKE 1 TABLET BY MOUTH ONCE DAILY; Therapy: 93Eqb2950 to (Evaluate:10Jul2019) Requested for: 15Jul2018; Last Rx:15Jul2018 Ordered 7. metFORMIN HCl ER 500 MG Oral Tablet Extended Release 24 Hour; TAKE 4 TABLETS( 2000MG) BY MOUTH ONCE DAILY; Therapy: 68Yux2089 to (Evaluate:18Jul2019) Requested for: 23Jul2018; Last Rx:23Jul2018 Ordered 8. Pyridium 100 MG Oral Tablet; TAKE 1 TABLET 3 TIMES DAILY AFTER MEALS NEEDED; Therapy: 65Qdd6089 to (Last Rx:33Zkw4802) Requested for: 67Gsu0278 Ordered 9. Simvastatin 20 MG Oral Tablet; TAKE ONE TABLET BY MOUTH DAILY; Therapy: 79Kln4312 to (Evaluate:10Jul2019) Requested for: 15Jul2018; Last Rx:15Jul2018 Ordered 10. Ventolin HFA 108 (90 Base) MCG/ACT Inhalation Aerosol Solution; INHALE 1 TO 2 PUFFS EVERY 4 TO 6 HOURS NEEDED; Therapy: 39Deu3855 to (Last Rx:16Ccs5789) Requested for: 07Iyx2857 Ordered 11. Vision Vitamins Oral Tablet; TAKE 1 TABLET DAILY; Therapy: 28Sep2018 to Recorded 12. Vitamin D3 1000 UNIT Oral Tablet; takes 2 tablets daily; Therapy: (Recorded:90Fhw6098) to Recorded Allergies 1. Ultram TABS Vitals Recorded: 28Sep2018 10:05AM Systolic 118, LUE, Sitting Diastolic 78, LUE, Sitting Heart Rate 84 Respiration 16 Temperature 98.1 F, Tympanic Height 162.5 cm Weight 87.9 kg BMI Calculated 33.29 BSA Calculated 1.93 2+ Falls or 1 Fall with injury in last year? No O2 Saturation 98 Vision both eyes 20/32 Hearing passed whisper Physical Exam Constitutional Well-nourished, well-developed, in no acute distress. Head and Face Normocephalic, atraumatic.\R\b0No sinus tenderness. No lid or conjunctival swelling, erythema or discharge. Pupils are equal, round, reactive to light. Ears, Nose, Mouth, and Throat External ears and nose are normal to inspection.\R\b1Bydxctks membranes clear bilaterally.\R\b0Lips, teeth, and gum are normal, good dentition.\R\w4Trrjwpoegf is normal with no erythema, edema, exudate or lesions. Neck Neck is supple and symmetric. The trachea is midline with no masses.\R\e3Iblsxe thyroid with no thyromegaly. Pulmonary Lungs are clear to auscultation. Cardiovascular Normal rate and rhythm, normal S1 and S2, no murmurs.\R\h8Jmtgopr pulses are 2+ bilaterally without bruit.\R\a3Mvhuhes pulses are 2+ bilaterally.\R\g2Xrzvi pulses are 2+ bilaterally.\R\b0No edema and/or varicosities. Chest Normal breasts with no dimpling or skin changes appreciated.\R\b0No breast or axillary massespalpated. Abdomen hemorrhoids noted, not acutely inflamed\R\b0Soft, non-tender with no masses.\R\b0No hepatosplenomegaly.\R\b0No hernia appreciated.\R\l5Cwsnew sphincter tone, no masses. Genitourinary Normal external genitalia and vagina, no lesions appreciated.\R\a4Khecom meatus with no discharge.\R\b0The bladder is not distended, no tenderness.\R\e6Drrhqk is absent.\R\t0Zenkpo is ab sent.\R\o9Eorbzg/Parametria are normal, no masses or tenderness. Lymphatic No cervical lymphadenopathy.\R\b0No axillary lymphadenopathy.\R\b0No inguinal lymphadenopathy. Musculoskeletal Normal gait and station.\R\p1Cyqrfw muscle strength and tone. Skin Skin and subcutaneous tissue are normal without rashes or lesions.\R\r8Jptkud turgor. Neurologic Reflexes are 2+ and symmetric.\R\j1Kywvez tactile sensation with monofilament testing throughout boot feet. Capillary refill findings were normal bilaterally. Psychiatric Good eye contact and answers questions appropriately.\R\n0Iagrxuaubda mood and affect. Signatures Electronically signed by : Cortney Chandra M.D.; Oct 11 2018 7:23AM COMMUNITY PLACEMENT WORKER documented in this encounter Plan of Treatment Not on file documented as of this encounter Visit Diagnoses Not on filedocumented in this encounter Care Teams Spring Former Hand Relationship Specialty Start Date End Date Unknown, Provider . HIRAM PEGUERO [id number] PCP - General 03/26/18 04/29/19 Cortney Chandra MD [address] [place] [address] PCP - General Family Medicine 04/30/19 Cortney Chandra MD [address] [place] [address] PCP Family Medicine 04/29/19 04/29/19 [facility] 03/30/23 Primary Eye Care 03/30/23 documented as of this encounter Additional Source Comments PLEASE NOTE: Replies to this message will not be received.[facility] and [facility]
--- OUTSIDE RECORDS SUMMARY | 2024-03-18 05:44 | XMS_ITS | Encounter Summary ---
Author Organization [employer] Address [address] [place] [address] Care Team Providers Care Sales Planner Name Role Phone Cortney Cahndra MD Primary Care Provider [phone] Encounter Details Date Type Department Care Team (Late st Contact Info) Description 12/25/2023 Abstract [place] [id number] [place], [place] [id number] Cortney Chandra MD [address] [place] [phone] Social History Tobacco Use Types Packs/Day Years Used Date Smoking Tobacco: Never Smokeless Tobacco: Never Alcohol Use Standard Drinks/Week Comments Never 0 (1 standard drink = 0.6 oz pur e alcohol) [facility] Utilities Answer Date Recorded In the past 12 months has [facility] [employer], gas, oil, or water [employer] threatened to shut off services in your [...] How often do you attend chur or voodoo services? More than 4 times per year 08/15/2023 Do you belong to any clubs o r organizations such as anabaptist groups, unions, fraternal or athletic groups, or [...] and heating? Not hard at all 08/15/2023 [facility] - Occupational [...] place to sleep or slept in a nursing home (including now)? No 08/15/2023 Depression (PHQ-9) Answer [...] on file documented as of this encounter Procedures Procedure Name Priority Date/Time Associated Diagnosis Comments EYE EXAM - EXTERNAL Routine 12/25/2023 documented in this encounter Results * EYE EXAM - EXTERNAL (12/25/2023) RETINOPATHY Negative [facility] Cortney Chandra MD NURSING COMMUNICAT ION Performing Organization Address City/State/[facility] Co de Phone Number [facility] [address] [address], documented in this encounter Visit Diagnoses Not on filedocumented in this encounter Care Teams Sales Planner Relationship Specialty Start Date End Date Cortney Chandra MD [address] [place] [phone] PCP - General Family Medicine 04/30/19 [facility] 03/30/23 Primary Eye Care 03/30/23 documented as of this encounter Additional Source Comments PLEASE NOTE: Replies to this message will not be received.[facility] and [facility]
--- OUTSIDE RECORDS SUMMARY | 2024-03-18 05:44 | XMS_ITS | Encounter Summary ---
Author Organization [employer] Address [address] [place] [address] Care Team Providers Care Taker Down Name Role Phone Unknown, Provider Primary Care Provider Unavaila Cortney Gomez MD Unavailable [phone] Cortney Chandra MD Primary Care Provider [phone] Encounter Details Date Type Department Care Team (Late st Contact Info) Description 03/07/2016 Historical Conversion [facility] Family Medicine [address] [place] [id number] Rosalia Lopez MD Social History Tobacco Use Types Packs/Day Years Used Date Smoking Tobacco: Never Assessed Sex and Gender Information Value Date Recorded Sex Assigned at Not on file Gender Identity Female 01/16/2023 2:23 PM CDT Sexual Orientation Not on file documented as of this encounter Last Filed Vital Signs Vital Sign Reading Time Taken Comments Blood Pressure 143/77 03/07/2016 12:00 AM CDT Pulse - - Temperature - - Respiratory Rate - - Oxygen Saturation - - Inhaled Oxygen Concentration - - Weight 87 kg (191 lb 12.8 oz) 03/07/2016 12:00 A M CDT Height 164 cm (5' 4.57) 03/07/2016 12:00 AM CDT Body Mass Index 32.35 03/07/2016 12:00 AM CDT documented in this encounter Progress Notes * Rosalia Lopez MD - 03/07/2016 12:00 AM CDT DERMATOLOGY OCTAVIO GALVAN : 1950 HX: [id number] DOS: 03/07/2016 CHIEF COMPLAINT: History of squamous cell carcinoma. HISTORY OF PRESENT ILLNESS: Octavio is a 66-year-old female who presents to the Dermatology Clinic for a skin check. The patient has a history of: 1. Squamous cell carcinoma, back, excised in 2005. The patient, today, notes a scaly spot on her left thigh, but nothing black, bleeding, or sore. CURRENT MEDICATIONS: Aspirin. Calcium. Hydrocortisone cream. Loratadine. Losartan. Metformin. Multivitamin. Simvastatin. Vitamin D3. ALLERGIES: ULTRAM. FAMILY HISTORY: Negative For skin cancer or melanoma. REVIEW OF SYSTEMS: The patient denies any fevers, chills, or cough. PHYSICAL EXAM: Vital signs reviewed in [employer]. Please see vitals tab for details. The patient is in no acute distress. The face, scalp, neck, back, chest, abdomen, arms, hands, legs, feet, fingers, toes and buttock are examined. Diffusely throughout her face, upper chest, and bilateral forearmsare hyperpigmentation, hypopigmentation and mild skin laxity. Site of removal of the squamous cell carcinoma shows well healed scar. No signs of recurrence by both inspection and palpation. Along herleft thigh is a 6.0 mm erythematous, keratotic papule. ASSESSMENT: A 66-year-old female with: 1. Actinic keratosis x1, left thigh. 2. Solar elastosis. 3. History of squamous cell carcinoma. No signs of recurrence at the site. PLAN: 1. Liquid nitrogen for a total of 30 second freeze x2 cycles was applied to the actinic keratoses. One lesion treated. 2. Sun smart tips reviewed with the patient. 3. Follow up for skin check yearly, sooner if she notes any new or changing lesion or therapy ineffective. Rosalia Lopez M.D./la-7 cc: Cortney Chandra M.D./[facility] Electronically signed by:Rosalia Lopez M.D. Mar 13 2016 8:17AM GRIEVANCE COORDINATOR documented in this encounter Plan of Treatment Not on file documented as of this encounter Visit Diagnoses Not on filedocumented in this encounter Care Teams Taker Down Relationship Specialty Start Date End Date Unknown, Provider . HIRAM PEGUERO [id number] PCP - General 03/26/18 04/29/19 Cortney Chandra MD [address] [place] [address] PCP - General Family Medicine 04/30/19 Cortney Chandra MD [address] [place] [address] PCP Family Medicine 04/29/19 04/29/19 [facility] 03/30/23 Primary Eye Care 03/30/23 documented as of this encounter Additional Source Comments PLEASE NOTE: Replies to this message will not be received.[facility] and [facility]
--- OUTSIDE RECORDS SUMMARY | 2024-03-18 05:44 | XMS_ITS | Encounter Summary ---
Author Organization [facility] Address [address] [place] [address] Care Team Providers Care Editorial Project Manager Name Role Phone Cortney Chandra MD Primary Care Provider [phone] Reason for Visit * Reason Comments Refill Request Encounter Details Date Type Department Care Team (Late st Contact Info) Description 01/12/2024 Refill [facility] Medicine [address] [place], [place] [address] Cortney Chandra MD [address] [place] [address] Dx: Type 2 diabetes mellitus with stage 1 chronic kidney disease, without long-term current use of insulin (HCC) Social History Tobacco Use Types Packs/Day Years Used Date Smoking Tobacco: Never Smokeless Tobacco: Never Alcohol Use Standard Drinks/Week Comments Never 0 (1 standard drink = 0.6 oz pur e alcohol) [facility] Utilities Answer Date Recorded In the past 12 months has e [employer], gas, oil, or water [employer] threatened to shut off services in your [...] How often do you attend chur or shinto services? More than 4 times per year 08/15/2023 Do you belong to any clubs o r organizations such as bahai groups, unions, [employer] or athletic groups, or school groups? No [...] and heating? Not hard at all 08/15/2023 [facility] - Occupational [...] place to sleep or slept in a mcfp (including now)? No 08/15/2023 Depression (PHQ-9) Answer [...] without long-term current use of insulin (HCC) Recurrent UTI Urinary tract infection, site not specified documented in this encounter Care Teams Editorial Project Manager Relationship Specialty Start Date End Date Cortney Chandra MD [address] [place] [address] PCP - General Family Medicine 04/30/19 [facility] 03/30/23 [facility] 03/30/23 documented as of this encounter Additional Source Comments PLEASE NOTE: Replies to this message will not be received.[facility] and [facility]
--- OUTSIDE RECORDS SUMMARY | 2024-03-18 05:44 | XMS_ITS | Encounter Summary ---
Author Organization [facility] Address [address] [place] [address] Care Team Providers Care Hoisting Engine Operator Name Role Phone Unknown, Provider Primary Care Provider Unavaila ble Cortney Chandra MD Unavailable [phone] Cortney Chandra MD Primary Care Provider [phone] Encounter Details Date Type Department Care Team (Late st Contact Info) Description 07/20/[address] [facility] Family Medicine [address] [place] [address]. [place] [address] Cortney Chandra MD [address] [place] [address] Social History Tobacco Use Types Packs/Day Years Used Date Smoking Tobacco: Never Assessed Sex and Gender Information Value Date Recorded Sex Assigned at Not on file Gender Identity Female 01/16/2023 2:23 PM CDT Sexual Orientation Not on file documented as of this encounter Last Filed Vital Signs Vital Sign Reading Time Taken Comments Blood Pressure 132/76 07/20/2015 12:00 AM COMPUTER CUSTOMER SUPPORT SPECIALIST Pulse - - Temperature - - Respiratory Rate - - Oxygen Saturation - - Inhaled Oxygen Concentration - - Weight 87.1 kg (192 lb 0.3 oz) 07/20/2015 12:00 AM COMPUTER CUSTOMER SUPPORT SPECIALIST Height 164 cm (5' 4.57) 07/20/2015 12:00 AM COMPUTER CUSTOMER SUPPORT SPECIALIST Body Mass Index 32.79 07/20/2015 12:00 AM COMPUTER CUSTOMER SUPPORT SPECIALIST documented in this encounter Plan of Treatment Not on file documented as of this encounter Visit Diagnoses Not on filedocumented in this encounter Care Teams Hoisting Engine Operator Relationship Specialty Start Date End Date Unknown, Provider . HIRAM PEGUERO [id number] PCP - General 03/26/18 04/29/19 Cortney Chandra MD [address] [place] [phone] PCP - General Family Medicine 04/30/19 Cortney Chandra MD [address] [place] [phone] PCP Family Medicine 04/29/19 04/29/19 [facility] 03/30/23 Primary Eye Care 03/30/23 documented as of this encounter Additional Source Comments PLEASE NOTE: Replies to this message will not be received.[facility] and [facility]
--- OUTSIDE RECORDS SUMMARY | 2024-03-18 05:44 | XMS_ITS | Encounter Summary ---
Author Organization [employer] Address [address] [place] [address] Care Team Providers Care Children'S Minister Name Role Phone Unknown, Provider Primary Care Provider Unavaila ble Cortney Chandra MD Unavailable [phone] Cortney Chandra MD Primary Care Provider [phone] Encounter Details Date Type Department Care Team (Late st Contact Info) Description 08/19/2016 Historical Conversion [facility] Family Medicine [address] [place] [address] [place] [address] Cortney Chandra MD [address] [place] [address] Social History Tobacco Use Types Packs/Day Years Used Date Smoking Tobacco: Never Assessed Sex and Gender Information Value Date Recorded Sex Assigned at Not on file Gender Identity Female 01/16/2023 2:23 PM CDT Sexual Orientation Not on file documented as of this encounter Last Filed Vital Signs Vital Sign Reading Time Taken Comments Blood Pressure 132/78 08/19/2016 12:00 AM JOB FORWARDER Pulse - - Temperature - - Respiratory Rate - - Oxygen Saturation - - Inhaled Oxygen Concentration - - Weight 86.2 kg (190 lb 0.6 oz) 08/19/2016 12:00 AM JOB FORWARDER Height 163 cm (5' 4.17) 08/19/2016 12:00 AM JOB FORWARDER Body Mass Index 32.44 08/19/2016 12:00 AM JOB FORWARDER documented in this encounter Progress Notes * Cortney Chandra MD - 12/05/2016 12:00 AM CDT Assessment 1. 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 She will monitor for recurrencediscussed the importance of core strengthening as a means to offload her backas needed Reason For Visit Pt. presents today for lower back pain, mostly on left side. 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 She decided to keep the appointment to be sure nothing else was going on. She states the pain started when she was having to bend over to help her get his shoes and socks on after he hada knee replacement. She said this activity required her to bend as well as twist and she noted L SI joint pain that was very bothersome when she would first get up out of a chair or out of bed. Therewas no associated numbness or weakness in her leg. She states in the last several days her can now get his own shoes and socks on and her pain is basically completely gone. She has a remote hx (30+ yrs ago) of a lumbar disc so this made her a little more concerned. She is otherwise doing well Review of Systems As Noted in HPI Constitutional: no fatigue. Musculoskeletal: back pain and back muscle spasm, but as noted in HPI. Neurological: no tingling, no paresthesias, no leg numbness, no difficulty walking, no leg weaknessand no saddle paresthesia. Current Meds 1. Aspirin 81 MG TABS; ONE DAILY; Last Rx:14Mar2010 Ordered 2. Cheratussin AC 100-10 MG/5ML Oral Syrup; TAKE 10 ML EVERY 4 TO 6 HOURS NEEDED; Therapy: 05Oct2012 to (Evaluate:64Dge7247); Last Rx:[id number] Ordered 3. Cyclobenzaprine HCl - 10 MG Oral Tablet; TAKE 1/2 TO 1 TABLET THREE TIMES DAILY; Therapy: 30Sep2010 to (Evaluate:64Hiy3529) Requested for: 07Jul2016; Last Rx:07Jul2016 Ordered 4. Fluticasone Propionate 50 MCG/ACT Nasal Suspension; INSTILL 1 SPRAY DAILY IN EACH NOSTRIL; Therapy: 17Apr2009 to (Evaluate:15Dec2016) Requested for: 45Nqh5579; Last Rx:[id number] Ordered 5. Hydrocortisone 2.5 % External Cream; APPLY SPARINGLY TO AFFECTED AREA(S) TWICE DAILY; Therapy: 20Jul2015 to (Evaluate:28Jul2016) Requested for: 44Usg1030; Last Rx:27Kmi0178 Ordered 6. Loratadine 10 MG Oral Tablet; TAKE 1 TABLET BY MOUTH DAILY NEEDED; Therapy: 98Dbn0572 to (Evaluate:12Sep2017) Requested for: 17Sep2016; Last Rx:17Sep2016 Ordered 7. Losartan Potassium 100 MG Oral Tablet; TAKE 1 TABLET BY MOUTH ONCE DAILY; Therapy: 23Abw4352 to (Evaluate:18Jul2017) Requested for: 23Jul2016; Last Rx:23Jul2016 Ordered 8. MetFORMIN HCl ER 500 MG Oral Tablet Extended Release 24 Hour; TAKE 4 TABLETS( 2000MG) BY MOUTH ONCE DAILY; Therapy: 01Fwk1926 to (Evaluate:25Jul2017) Requested for: 30Jul2016; Last Rx:30Jul2016 Ordered 9. One-Daily Multi Vitamins Oral Tablet; TAKE 1 TABLET DAILY; Therapy: (Recorded:23Jul2012) to Recorded 10. Simvastatin 20 MG Oral Tablet; TAKE ONE TABLET BY MOUTH DAILY; Therapy: 51Jjf3309 to (Evaluate:18Jul2017) Requested for: 23Jul2016; Last Rx:23Jul2016 Ordered 11. Vitamin D3 1000 UNIT Oral Tablet; takes 2 tablets daily; Therapy: (Recorded:46Vgu7747) to Recorded Allergies 1. Ultram TABS Vitals Recorded: 05Dec2016 09:56AM Systolic 142, LUE, Sitting Diastolic 84, LUE, Sitting Heart Rate 95, L Radial Pulse Quality Normal, L Radial Respiration 16 Respiration Quality Normal Temperature 99.1 F, Tympanic Weight 84.4 kg BMI Calculated 31.77 BSA Calculated 1.9 O2 Saturation 96, RA Physical Exam General Appearance: OCTAVIO is healthy-appearing and in no acute distress. Musculoskeletal:. WHile Octavio is now pain-free she points to her left SI joint as the primary area of pain. Neurologic: no numbness or weakness noted. Signatures Electronically signed by : Cortney Chandra M.D.; Dec 18 2016 8:57PM JOB FORWARDER documented in this encounter H&P Notes * Cortney Chandra MD - 08/19/2016 12:00 AM CST Assessment 1. 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 Fatigue (780.79) (R53.83) 3. Vitamin D deficiency (268.9) (E55.9) 4. Controlled diabetes mellitus (250.00) (E11.9) 5. Encounter for preventive health examination (V70.0) (Z00.00) 6. Visit for screening mammogram (V76.12) (Z12.31) 1. Essentially normal CPE in 66 yo femaleL upper arm pain was likely due to deep muscle contusion in deltoid that is slowly improvingType 2 DM, controlled- labs pendingHTN, controlled- labs pending. Plan Await labsexercise, vit D intake and calcium intakewill continue to monitor her LUE pain for nowgiven todayneed Td this summernext yrMEDICARE AND WELL WOMAN FORMS Plan Orders Combined systolic and diastolic hypertension Basic Metabolic Panel; Status:Resulted - Requires Verification; Done: 12Rze7947 10:48AM Controlled diabetes mellitus Hemoglobin A1C; Status:Resulted - Requires Verification; Done: 36Cpq7649 10:48AM Lipid Panel; Status:Resulted - Requires Verification; Done: 59Fqn2835 10:48AM Microalbumin (Random); Status:Resulted - Requires Verification; Done: 79Lgg7573 10:48AM Fatigue, Screening for thyroid disorder TSH; Status:Resulted - Requires Verification; Done: 84Tjr2307 10:48AM Health Maintenance Prevnar 13 Intramuscular Suspension Visit for screening mammogram Mammo Screen Bilat - 2109; Status:Resulted - Requires Verification; Done: 33Ukk6646 11:12AM Vitamin D deficiency Drawing Fee; Status:Complete; Done: 33Iwn2502 Vitamin D Total [place]; Status:Resulted - Requires Verification; Done: 89Jau7228 10:48AM Reason For Visit Pt. presents today for medicare px. Derick MATTHEWN History of Present Illness Octavio is here for annual Medicare wellness exam. She also is due for her labs for diabetes. She is felling well but does c/o pain in her left upper arm since an injury at [facility]. She slipped on the ice getting out of her vehicle and landed on her L arm and shoulder. She has pain running down the outer aspect of her upper arm but no weakness. She also has FROM of the arm. the discomfort h as slowly improved over time. SEE FORM. Review of Systems Constitutional: fatigue, but no fever, no chills, no recent weight gain and no recent weight loss. ENT: no sore throat, no nasal congestion, no nasal discharge and no hearing loss. Cardiovascular: no chest pain, no palpitations and no lower extremity edema. Respiratory: no cough and no shortness of breath. Gastrointestinal: no nausea, no vomiting, no diarrhea, no constipation and no bright red blood per rectum. Genitourinary: no dysuria, no frequency, no urgency, no hematuria and no vaginal discharge. Musculoskeletal: joint stiffness, but as noted in HPI, no back pain and no diffuse joint pain. Integumentary and Breasts: no rashes, no erythema, no breast lumps / masses and no breast pain. Neurological: no headache, no dizziness, no paresthesias, no leg numbness and no difficulty walking. Psychiatric: no anxiety and no depression. Endocrine: no hot flashes, no night sweats and no feelings of weakness. Hematologic and Lymphatic: no swollen glands. Past Medical History 1. Allergic rhinitis due to pollen (477.0) (J30.1) 2. Cervical radiculopathy (723.4) (M54.12) 3. H/O malignant neoplasm of skin (V10.83) (Z85.828) 4. Health examination of defined subpopulation (V70.5) (Z02.89) 5. Hematuria (599.70) (R31.9) 6. History of fibrocystic disease of breast (V13.89) (Z87.898) 7. History of (V13.29) ?? 8. Hyperlipidemia (272.4) (E78.5) 9. Joint pain, knee (719.46) (M25.569) 10. Neck pain (723.1) (M54.2) 11. Screening for thyroid disorder (V77.0) (Z13.29) 12. Skin cancer of trunk (173.50) (C44.599) 13. 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 History of Vision Assessment 15. Visit for screening mammogram (V76.12) (Z12.31) Surgical [...] 5. Family history of Colon Cancer (V16.0) Social History 1. Marital History - Currently 2. Never smoked Current Meds 1. Aspirin 81 MG TABS; ONE DAILY; Last Rx:[id number] Ordered 2. Cheratussin AC 100-10 MG/5ML Oral Syrup; TAKE 10 ML EVERY 4 TO 6 HOURS NEEDED; Therapy: 05Oct2012 to (Evaluate:84Qyv0156); Last Rx:20Guf7259 Ordered 3. Cyclobenzaprine HCl - 10 MG Oral Tablet; TAKE 1/2 TO 1 TABLET THREE TIMES DAILY; Therapy: 30Sep2010 to (Evaluate:58Dok9947) Requested for: 07Jul2016; Last Rx:07Jul2016 Ordered 4. Fluticasone Propionate 50 MCG/ACT Nasal Suspension; INSTILL 1 SPRAY DAILY IN EACH NOSTRIL; Therapy: 17Apr2009 to (Evaluate:15Dec2016) Requested for: 68Thn3125; Last Rx:29Wwb8681 Ordered 5. Hydrocortisone 2.5 % External Cream; APPLY SPARINGLY TO AFFECTED AREA(S) TWICE DAILY; Therapy: 20Jul2015 to (Evaluate:28Jul2016) Requested for: 84Oci1120; Last Rx:16Gri5412 Ordered 6. Loratadine 10 MG Oral Tablet; TAKE 1 TABLET BY MOUTH DAILY NEEDED; Therapy: 21Mob5511 to (Evaluate:62Lvp0470) Requested for: 18Rof4391; Last Rx:00Ecl2739 Ordered 7. Losartan Potassium 100 MG Oral Tablet; TAKE 1 TABLET BY MOUTH ONCE DAILY; Therapy: 55Hiz4781 to (Evaluate:18Jul2017) Requested for: 23Jul2016; Last Rx:23Jul2016 Ordered 8. MetFORMIN HCl ER 500 MG Oral Tablet Extended Release 24 Hour; TAKE 4 TABLETS( 2000MG) BY MOUTH ONCE DAILY; Therapy: 15Hid6062 to (Evaluate:25Jul2017) Requested for: 30Jul2016; Last Rx:30Jul2016 Ordered 9. One-Daily Multi Vitamins Oral Tablet; TAKE 1 TABLET DAILY; Therapy: (Recorded:23Jul2012) to Recorded 10. Simvastatin 20 MG Oral Tablet; TAKE ONE TABLET BY MOUTH DAILY; Therapy: 99Kse2523 to (Evaluate:18Jul2017) Requested for: 23Jul2016; Last Rx:23Jul2016 Ordered 11. Vitamin D3 1000 UNIT Oral Tablet; takes 2 tablets daily; Therapy: (Recorded:19Aug2016) to Recorded Allergies 1. Ultram TABS Vitals Recorded: 19Aug2016 10:00AM Systolic 132, LUE, Sitting Diastolic 78, LUE, Sitting Heart Rate 87, L Radial Pulse Quality Normal, L Radial Respiration 16 Respiration Quality Normal Temperature 98.9 F, Tympanic Height 163 cm Weight 86.2 kg BMI Calculated 32.44 BSA Calculated 1.92 2+ Falls or 1 Fall with injury in last year? No O2 Saturation 97, RA Vision Rt. 10/12.5 Lt. 10/20 Hearing whisper test pass at 6ft. Physical Exam Constitutional Well-nourished, well-developed, in no acute distress. Head and Face Normocephalic, atraumatic. No lid or conjunctival swelling, erythema or discharge. Pupils are equal, round, reactive to light. Ears, Nose, Mouth, and Throat Tympanic membranes clear bilaterally. Lips, teeth, and gum are normal, good dentition. Oropharynx is normal with no erythema, edema, exudate or lesions. Neck Neck is supple and symmetric. The trachea is midline with no masses. Normal thyroid with no thyromegaly. Pulmonary Lungs are clear to auscultation. Cardiovascular Normal rate and rhythm, normal S1 and S2, no murmurs. Carotid pulses are 2+ bilaterally without bruit. Femoral pulses are 2+ bilaterally. Pedal pulses are 2+ bilaterally. No edema and/or varicosities. Chest Normal breasts with no dimpling or skin changes appreciated. No breast or axillary masses palpated. Abdomen Soft, non-tender with no masses. No hepatosplenomegaly. No hernia appreciated. Normal sphincter tone, no masses. Genitourinary pelvic exam not performed. Cervix is absent. Uterus is absent. Lymphatic No cervical lymphadenopathy. Musculoskeletal Normal gait and station. Normal muscle strength and tone. Skin Skin and subcutaneous tissue are normal without rashes or lesions. Neurologic Reflexes are 2+ and symmetric. Psychiatric Appropriate mood and affect. Results/Data Mammo Screen Bilat - 2109 [id number] 11:12AM Cortney Chandra Test Name Result Flag Reference MAMMOGRAM SCREENING BILATERAL (Report) Exam Description: MAMMOGRAM SCREENING BILATERAL Exam Code: MScrBI/ Clinical History: Asymptomatic. Comparison: 08/20/15, 08/08/14 Breast Density: Heterogeneously dense, which may obscure small masses. Findings: Conventional craniocaudal and mediolateral oblique views were obtained. There is no evidence for spiculated masses, architectural distortion, asymmetry or suspicious calcifications. Impression: No evidence of malignancy. Recommend routine annual screening mammography. This study was evaluated with the assistance of Computer-Aided Detection. ACR 1: Negative. A lay language report of this examination will be mailed to the patient. Author: MAME ISRAEL M.D. Basic Metabolic Panel [id number] 10:48AM Cortney Chandra Test Name Result Flag Reference Calcium 9.6 mg/dl 8.8-10.8 Glucose 133 mg/dl H 70-100 Prediabetes >100-125 mg/dL Diabetes >/=126 mg/dL Please note reference change as of 2015. BUN 17 mg/dl 8-21 Creatinine 0.6 mg/dl 0.6-1.4 GFR - Non >90 ml/min 60 or > GFR - >90 ml/min 60 or > Sodium 143 mmol/L 135-145 Potassium 4.2 mmol/L 3.5-5.1 Chloride 102 mmol/L 98-107 Carbon Dioxide 21 mmol/L L 22-30 Hemoglobin A1C [id number] 10:48AM Cortney Chandra Test Name Result Flag Reference Hemoglobin A1C 7.5 % H <5.7 Prediabetes 5.7% - 6.4% Diabetes >=6.5% Please note reference change as of 2015.. Estimated Average Glucose 169 mg/dl The eAG (estimated Average Glucose) is recommended by the [place] [employer] to assist with patient education during glucose monitoring. Lipid Panel [id number] 10:48AM Cortney Chandra Test Name Result Flag Reference Cholesterol 166 mg/dl < 200 Triglycerides 144 mg/dl < 150 HDL 56 mg/dl 40 or > LDL - Calculated 81 mg/dl < 130 *L/H Ratio 1.5 1.0-4.7 TSH [id number] 10:48AM Cortney Chandra Test Name Result Flag Reference TSH 0.804 uIU/ml 0.30-4.70 Vitamin D Total [facility] [id number] 10:48AM Cortney Chandra Test Name Result Flag Reference Vitamin D Total - [facility] 43.1 ng/ml 30-100 Deficiency <10ng/mL Insufficiency 10-29 ng/mL Sufficiency 30-100 ng/mL Possible Toxicity >100 ng/mL Microalbumin (Random) [id number] 10:48AM Cortney Chandra Test Name Result Flag Reference Microalbumin, Raw 6.9 mg/L < 20 Microalbumin/Creat Ratio 4.4 ug/mg < 30 ug Microalb/mg UA Creat Creat, Urine 155.4 mg/dl Signatures Electronically signed by : Cortney Chandra M.D.; Aug 26 2016 8:22AM JOB FORWARDER documented in this encounter Plan of Treatment Not on file documented as of this encounter Visit Diagnoses Not on filedocumented in this encounter Care Teams Children'S Minister Relationship Specialty Start Date End Date Unknown, Provider . HIRAM PEGUERO [id number] PCP - General 03/26/18 04/29/19 Cortney Chandra MD [address] [place] [address] PCP - General Family Medicine 04/30/19 Cortney Chandra MD [address] [place] [address] [place] [phone] PCP Family Medicine 04/29/19 04/29/19 [facility] 03/30/23 [facility] 03/30/23 documented as of this encounter Additional Source Comments PLEASE NOTE: Replies to this message will not be received.[facility] and [facility]
--- OUTSIDE RECORDS SUMMARY | 2024-03-18 05:44 | XMS_ITS | Encounter Summary ---
Author Organization [employer] Address [address] [place] [address] Care Team Providers Care Windows 7 Deployment Lead Name Role Phone Unknown, Provider Primary Care Provider Unavaila ble Cortney Chandra MD Unavailable [phone] Cortney Chandra MD Primary Care Provider [phone] Encounter Details Date Type Department Care Team (Late st Contact Info) Description 09/25/2017 Historical Conversion [facility] Family Medicine [address] [place] [address]. [place] [address] Cortney Chandra MD [address] [place] [address] Social History Tobacco Use Types Packs/Day Years Used Date Smoking Tobacco: Never Assessed Sex and Gender Information Value Date Recorded Sex Assigned at Not on file Gender Identity Female 01/16/2023 2:23 PM CDT Sexual Orientation Not on file documented as of this encounter Last Filed Vital Signs Vital Sign Reading Time Taken Comments Blood Pressure 126/84 09/25/2017 12:00 AM CDT Pulse - - Temperature - - Respiratory Rate - - Oxygen Saturation - - Inhaled Oxygen Concentration - - Weight 85.6 kg (188 lb 11.4 oz) 018 12:00 AM CDT Height 163 cm (5' 4.17) 09/25/2017 12: 00 AM CDT Body Mass Index 32.22 09/25/2017 12:00 AM CDT documented in this encounter H&P Notes * Cortney Chandra MD - 09/25/2017 12:00 AM CDT Assessment 1. Encounter for preventive health examination (V70.0) (Z00.00) 2. 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 Controlled diabetes mellitus (250.00) (E11.9) 4. Hyperlipidemia (272.4) (E78.5) 5. Fatigue (780.79) (R53.83) Healthy 67 yo female with type 2 DM, HTN and hyperlipidemia, doing well Plan Mamm has been orderedlabs done todaydiet, exercise, calcium, vit D, self care Plan Orders Fatigue Drawing Fee; Status:Complete; Done: 25Sep2017 Health Maintenance Td (adult), adsorbed tetanus and diphtheria toxoids Reason For Visit [facility]. [facility] History of Present Illness Sumaya is here for annual HCM exam along with Medicare wellness. She has a hx of type 2 DM, hyperlipidemia and HTN. She is doing well. She notes some join and back discomfort off and on but does notwant to do anything about it. She is still working casual as an [employer] and still enjoys this. Her asthma and allergies have been stable. See FORMS Review of Systems Constitutional: no fever, no chills and no recent weight gain. Head and Face: no facial pain and no facial pressure. Eyes: eyes not red, no watery discharge from the eyes and no purulent discharge from the eyes. ENT: no sore throat, no nasal congestion, no nasal discharge and no hearing loss. Cardiovascular: no chest pain, no palpitations and no lower extremity edema. Respiratory: no cough, no shortness of breath and no wheezing. Gastrointestinal: no nausea, no vomiting, no diarrhea, no constipation and no abdominal pain. Genitourinary: no dysuria, no frequency, no urgency and no hematuria. Musculoskeletal: no generalized muscle aches, no back pain, no diffuse joint pain, no joint swelling and no joint stiffness. Integumentary and Breasts: skin scaling, but no rashes, no erythema, no breast lumps / masses, no breast pain and no skin lesions. Neurological: no headache, no dizziness and no fainting. Psychiatric: no anxiety, no depression and no insomnia. Endocrine: no hot flashes and no feelings of weakness. Hematologic and Lymphatic: no swollen glands and no tendency for easy bruising. Past Medical History 1. Allergic rhinitis due to pollen (477.0) (J30.1) 2. Cervical radiculopathy (723.4) (M54.12) 3. Fatigue (780.79) (R53.83) 4. H/O malignant neoplasm of skin (V10.83) (Z85.828) 5. Health examination of defined subpopulation (V70.5) (Z02.89) 6. Hematuria (599.70) (R31.9) 7. History of fibrocystic disease of breast (V13.89) (Z87.898) 8. History of (V13.29) ?? 9. Hyperlipidemia (272.4) (E78.5) 10. Increased urinary frequency (788.41) (R35.0) 11. Joint pain, knee (719.46) (M25.569) 12. Neck pain (723.1) (M54.2) 13. 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 Screening for thyroid disorder (V77.0) (Z13.29) 15. Skin cancer of trunk (173.50) (C44.599) 16. 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 Urinary symptom or sign (788.99) (R39.9) 18. History of Vision Assessment 19. Visit for screening mammogram (V76.12) (Z12.31) 20. Vitamin D deficiency (268.9) (E55.9) Surgical History [...] Aspirin 81 MG TABS; ONE DAILY; Last Rx:[id number] Ordered 2. Cheratussin AC 100-10 MG/5ML Oral Syrup; TAKE 10 ML EVERY 4 TO 6 HOURS NEEDED; Therapy: 05Oct2012 to (Evaluate:22Tbw4426); Last Rx:73Pxe0680 Ordered 3. Cyclobenzaprine HCl - 10 MG Oral Tablet; TAKE 1/2 TO 1 TABLET THREE TIMES DAILY; Therapy: 30Sep2010 to (Evaluate:76Ncz4789) Requested for: 07Jul2016; Last Rx:07Jul2016 Ordered 4. Fluticasone Propionate 50 MCG/ACT Nasal Suspension; INSTILL 1 SPRAY DAILY IN EACH NOSTRIL; Therapy: 17Apr2009 to (Evaluate:15Dec2016) Requested for: 07Htq1217; Last Rx:38Gki7221 Ordered 5. Hydrocortisone 2.5 % External Cream; APPLY SPARINGLY TO AFFECTED AREA(S) TWICE DAILY; Therapy: 20Jul2015 to (Evaluate:83Dfg1291) Requested for: 17Jul2017; Last Rx:17Jul2017 Ordered 6. Loratadine 10 MG Oral Tablet; TAKE 1 TABLET BY MOUTH DAILY NEEDED; Therapy: 52Myy7578 to (Evaluate:12Sep2018) Requested for: 17Sep2017; Last Rx:17Sep2017 Ordered 7. Losartan Potassium 100 MG Oral Tablet; TAKE 1 TABLET BY MOUTH ONCE DAILY; Therapy: 41Cjz3461 to (Evaluate:12Jul2018) Requested for: 17Jul2017; Last Rx:17Jul2017 Ordered 8. MetFORMIN HCl ER 500 MG Oral Tablet Extended Release 24 Hour; TAKE 4 TABLETS( 2000MG) BY MOUTH ONCE DAILY; Therapy: 36Aww7209 to (Evaluate:12Jul2018) Requested for: 17Jul2017; Last Rx:17Jul2017 Ordered 9. One-Daily Multi Vitamins Oral Tablet; TAKE 1 TABLET DAILY; Therapy: (Recorded:23Jul2012) to Recorded 10. Simvastatin 20 MG Oral Tablet; TAKE ONE TABLET BY MOUTH DAILY; Therapy: 38Kvb4591 to (Evaluate:12Jul2018) Requested for: 17Jul2017; Last Rx:17Jul2017 Ordered 11. Ventolin HFA 108 (90 Base) MCG/ACT Inhalation Aerosol Solution; INHALE 1 TO 2 PUFFS EVERY 4 TO 6 HOURS NEEDED; Therapy: 08Adg8889 to (Last Rx:12Awe8989) Requested for: 38Bal7123 Ordered 12. Vitamin D3 1000 UNIT Oral Tablet; takes 2 tablets daily; Therapy: (Recorded:54Uvb0096) to Recorded Allergies 1. Ultram TABS Vitals Recorded: 25Sep2017 10:00AM Systolic 126, LUE, Sitting Diastolic 84, LUE, Sitting Heart Rate 90, L Radial Pulse Quality Normal, L Radial Respiration Quality Normal Respiration 16 Temperature 99.4 F, Tympanic Height 163 cm Weight 85.6 kg BMI Calculated 32.22 BSA Calculated 1.91 2+ Falls or 1 Fall with injury in last year? No LMP hyst. O2 Saturation 98, RA Vision 10/12.5 bilaterally Hearing whisper test pass Physical Exam Constitutional Well-nourished, well-developed, in no acute distress. Head and Face Normocephalic, atraumatic. No lid or conjunctival swelling, erythema or discharge. Pupils are equal, round, reactive to light. Ears, Nose, Mouth, and Throat External ears and nose are normal to inspection. Tympanic membranes clear bilaterally. Lips, teeth, and [...] appreciated. Normal sphincter tone, no masses. Genitourinary s/p QIAAN/BSO so no pelvic done Normal external genitalia and vagina, no lesions appreciated. Lymphatic No cervical lymphadenopathy. No axillary lymphadenopathy. No inguinal lymphadenopathy. Musculoskeletal Normal gait and station. Normal muscle strength and tone. Skin Normal turgor. Neurologic Reflexes are 2+ and symmetric. Psychiatric Good eye contact and answers questions appropriately. Appropriate mood and affect. Signatures Electronically signed by : Cortney Chandra M.D.; Oct 05 2017 8:00AM FINANCIAL ASSOCIATE documented in this encounter Plan of Treatment Not on file documented as of this encounter Visit Diagnoses Not on filedocumented in this encounter Care Teams Windows 7 Deployment Lead Relationship Specialty Start Date End Date Unknown, Provider . HIRAM PEGUERO [id number] PCP - General 03/26/18 04/29/19 Cortney Chandra MD [address] [place] [phone] PCP - General Family Medicine 04/30/19 Cortney Chandra MD [address] [place] [address] PCP Family Medicine 04/29/19 04/29/19 [facility] 03/30/23 Primary [facility] 03/30/23 documented as of this encounter Additional Source Comments PLEASE NOTE: Replies to this message will not be received.[facility] and [facility]
--- OUTSIDE RECORDS SUMMARY | 2024-03-18 05:44 | XMS_ITS | Encounter Summary ---
Author Organization [employer] Address [address] [place] [address] Care Team Providers Care Cobol Mainframe Developer Name Role Phone Cortney Chandra MD Primary Care Provider [phone] Reason for Visit * Reason Comments Refill Request Encounter Details Date Type Department Care Team (Late st Contact Info) Description 01/05/[address] [facility] Medicine [address] [place], [place] [id number] Cortney Chandra MD [address] [place] [address] Dx: Rash (Primary Dx) Social History Tobacco Use Types Packs/Day Years Used Date Smoking Tobacco: Never Smokeless Tobacco: Never Alcohol Use Standard Drinks/Week Comments Never 0 (1 standard drink = 0.6 oz pur e alcohol) [facility] Utilities Answer Date Recorded In the past [address] [facility] payever, gas, oil, or water Quu threatened to shut off services in your [...] How often do you attend chur or jew services? More than 4 times per year 08/15/2023 Do you belong to any clubs o r organizations such as religion groups, unions, fraternal or athletic groups, or [...] and heating? Not hard at all 08/15/2023 [facility] - [...] place to sleep or slept in a penitentiary (including now)? No 08/15/2023 Depression (PHQ-9) Answer [...] encounter Miscellaneous Notes * Telephone Encounter - Jennifer Hernandez RN - 01/05/2024 1:03 PM CDT Requested Prescriptions Pending Prescriptions Disp Refills Procto-Med HC 2.5 % Top crpe [Pharmacy Med Name: PROCTO-MED HC 2.5% CREA] 28 g 2 Sig: APPLY TOPICALLY TO AFFECTED AREA(S) TWO TIMES DAILY Last appointment with prescribing provider: 08/21/23-follow up visit 05/22/23-initiation of antidepressant 04/03/23-CDM 03/30/23-MAW Last fill of medication: 08/11/23 #0 g x 2 R documented in this encounter Plan of Treatment Not on file documented as of this encounter Visit Diagnoses Diagnosis Rash- Primary Rash and other nonspecific skin eruption documented in this encounter Care Teams Cobol Mainframe Developer Relationship Specialty Start Date End Date Cotrney Chandra MD [address] [place] [id number] PCP - General Family Medicine 04/30/19 [facility] 03/30/23 Primary [facility] 9/25/23 documented as of this encounter Additional Source Comments PLEASE NOTE: Replies to this message will not be received.[facility] and [facility]
--- OUTSIDE RECORDS SUMMARY | 2024-03-18 05:44 | XMS_ITS | Encounter Summary ---
Author Organization [employer] Address [address] [place] [address] Care Team Providers Care Melt Supervisor Name Role Phone Unknown, Provider Primary Care Provider Unavaila ble Cortney Chandra MD Unavailable [phone] Cortney Chandra MD Primary Care Provider [phone] Encounter Details Date Type Department Care Team (Late st Contact Info) Description 07/20/2015 Historical Conversion [facility] Family Medicine [address] [place] [address] [place] [address] Cortney Chandra MD [address] [place] [address] Social History Tobacco Use Types Packs/Day Years Used Date Smoking Tobacco: Never Assessed Sex and Gender Information Value Date Recorded Sex Assigned at Not on file Gender Identity Female 01/16/2023 2:23 PM CDT Sexual Orientation Not on file documented as of this encounter H&P Notes * Cortney Chandra MD - 07/20/2015 12:00 AM CST Chief Complaint/Reason for Visit Pt. presents today for annual exam. Derick OSORIO Past Medical History 1. Allergic rhinitis due to pollen (477.0) (J30.1) 2. Health examination of defined subpopulation (V70.5) (Z00.8) 3. History of fibrocystic disease of breast (V13.89) (Z87.898) 4. History of (V13.29) ?? 5. Hyperlipidemia (272.4) (E78.5) 6. Joint pain, knee (719.46) (M25.569) 7. Neck pain (723.1) (M54.2) 8. Screening for thyroid disorder (V77.0) (Z13.29) 9. History of Vision Assessment 10. Visit for screening mammogram (V76.12) (Z12.31) Surgical History 1. History of Biopsy Breast Open ?? /1980 2. History of Colonoscopy (Fiberoptic) 3. History of Complete Colonoscopy ?? 2001,07/2007 4. History of Hysterectomy ?? pelvic floor repair also 05/09/94 Current Meds 1. Aspirin 81 MG Oral Tablet; ONE DAILY; Last Rx:[id number] Ordered 2. Calcium 600/Vitamin D3 TABS; 1 TAB ; Therapy: (Recorded:23Jul2012) to Recorded 3. Cheratussin AC [...] DAILY IN EACH NOSTRIL; Therapy: 17Apr2009 to (Evaluate:59Mca2192) Requested for: 09May2014; Last Rx:09May2014 Ordered 6. Loratadine 10 MG Oral Tablet; TAKE 1 TABLET BY MOUTH DAILY NEEDED; Therapy: 39Kgg5230 to (Evaluate:22Jke5599) Requested for: 22Lua6350; Last Rx:[id number] Ordered 7. Losartan Potassium 100 MG Oral Tablet; TAKE 1 TABLET BY MOUTH ONCE DAILY; Therapy: 13Mth2664 to (Evaluate:54Mih1549) Requested for: 13Feb2015; Last Rx:[id number] Ordered 8. MetFORMIN HCl ER 500 MG Oral Tablet Extended Release 24 Hour; TAKE 4 TABLETS( 2000MG) BY MOUTH ONCE DAILY; Therapy: 54Vhj9826 to (Evaluate:68Pcv8394) Requested for: 13Feb2015; Last Rx:13Feb2015 Ordered 9. One-Daily Multi Vitamins Oral Tablet; TAKE 1 TABLET DAILY; Therapy: (Recorded:23Jul2012) to Recorded 10. ProAir HFA 108 (90 Base) MCG/ACT Inhalation Aerosol Solution; INHALE 2 PUFFS EVERY 4 HOURS NEEDED FOR COUGHAND WHEEZE; Therapy: 26May2008 to (Last Rx:14May2015) Requested for: 14May2015 Ordered 11. Simvastatin 20 MG Oral Tablet; TAKE ONE TABLET BY MOUTH DAILY; Therapy: 41Umq9845 to (Evaluate:11Jul2016) Requested for: 17Jul2015; Last Rx:17Jul2015 Ordered 12. Vitamin D3 1000 UNIT Oral Tablet; 1 [...] marital history - currently 2. Never smoked Review of Systems Female Complete [facility] [employer] [facility]: Constitutional: no fever and no chills. Eyes: no eyesight problems. ENT: no earache and no hearing loss. Respiratory: no shortness of breath, no wheezing and no cough. Cardiovascular: no chest pain, no palpitations and no edema. Gastrointestinal: no abdominal pain, no constipation, no diarrhea and no heartburn. Genitourinary: no dysuria, no incontinence, no vaginal discharge, no pelvic pain, no dysmenorrhea, no unexplained vaginal bleeding, no nocturia and no dyspareunia. Breasts: no breast pain and no breast lump. Musculoskeletal: no joint pain, no back pain and no neck pain. Integumentary: no skin lesions. Neurological: no limb weakness, no headache and no neurological symptoms. Endocrine: no hot flashes. Psychiatric: no depression and no sleep disturbances. Other Systems: All other systems are negative. Vitals Vital Signs [Data Includes: Current Encounter] Recorded: 20Jul2015 09:45AM Blood Pressure 132 / 76, LUE, Sitting Heart Rate 83, L Radial Pulse Quality Normal, L Radial Respiration 14 Respiration Quality Normal Temperature 98.3 F, Tympanic Height 164 cm Weight 87.1 kg BMI Calculated 32.38 BSA Calculated 1.93 LMP hyst O2 Saturation 97, RA Patient Encounter Sumaya is a 65-year-old recently retired employee from [employer] that is here for her first Medicare health screening exam and physical. She is currently doing well. She is a 3 para 2 female who does have a history of type 2 diabetes, hyperlipidemia and hypertension. She has been faithful with taking her medication and her last lab showed her to be under optimal control for her diabetes. She does wonder a little bit about heart disease as her sister basically dropped of a heart attack but at this point she has had no symptoms whatsoever. She is due for mammography after August 08 so we will get this scheduled. We also talked about immunizations and she got a second pneumococcal vaccine two years ago. We discussed Prevnar today but did not do this yet. She has had her Zostavax as well. Her physical exam is as detailed per her Medicare form and her Well Woman form and all looked good. Depression screening is reassuring and there were no other major concerns. We have talked about healthcare directive and she is going to think about getting one filled out for herself. See scanned forms for all visit details. See electronic medical record for electronic review of systems. Cortney Chandra M.D./lb-01 Assessment 1. Never smoked Signatures Electronically signed by : Cortney Chandra M.D.; Aug 07 2015 1:15PM BUDGET AND POLICY ANALYST documented in this encounter Plan of Treatment Not on file documented as of this encounter Visit Diagnoses Not on filedocumented in this encounter Care Teams Melt Supervisor Relationship Specialty Start Date End Date Unknown, Provider . HIRAM PEGUERO [id number] PCP - General 03/26/18 04/29/19 Cortney Chandra MD [address] [place] [address] PCP - General Family Medicine 04/30/19 Cortney Chandra MD [address] [place] [address] PCP Family Medicine 04/29/19 04/29/19 [facility] 03/30/23 Primary Eye Care 03/30/23 documented as of this encounter Additional Source Comments PLEASE NOTE: Replies to this message will not be received.[facility] and [facility]
--- OUTSIDE RECORDS SUMMARY | 2024-03-18 05:44 | XMS_ITS | Encounter Summary ---
Author Organization [employer] Address [address] [place] [address] Care Team Providers Care Buoy Tender Name Role Phone Unknown, Provider Primary Care Provider Unavaila ble Cortney Chandra MD Unavailable [phone] Cortney Chandra MD Primary Care Provider [phone] Encounter Details Date Type Department Care Team (Late st Contact Info) Description 09/01/2014 Historical Conversion [facility] [address] [place] [address]. 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 Aspirin 81 MG Oral Tablet; ONE DAILY; Last Rx:14Mar2010 Ordered 2. Calcium 600/Vitamin D3 TABS; 1 TAB EVERDAY; Therapy: (Recorded:23Jul2012) to Recorded 3. Cheratussin AC 100-10 MG/5ML Oral Syrup; TAKE 2 TEASPOONSFUL EVERY 4 TO 6 HOURS NEEDED; Therapy: 05Oct2012 to (Evaluate:15May2014); Last Rx:09May2014 Ordered 4. Cyclobenzaprine HCl - 10 MG Oral Tablet; TAKE ONE TABLET BY MOUTH NEEDED; Therapy: 30Sep2010 to (Last Rx:23Mgw8272) Requested for: 09Eqr5029 Ordered 5. Fluticasone Propionate 50 MCG/ACT Nasal Suspension; INSTILL 1 SPRAY DAILY IN EACH NOSTRIL; Therapy: 17Apr2009 to (Evaluate:56Ccw2734) Requested for: 09May2014; Last Rx:09May2014 Ordered 6. Hydrochlorothiazide 25 MG Oral Tablet; TAKE ONE TABLET EVERY MORNING; Therapy: 26May2008 to (Evaluate:96Tag3246) Requested for: 70Yzi0696; Last Rx:85Mny2707 Ordered 7. Loratadine 10 MG Oral Tablet; TAKE 1 TABLET BY MOUTH DAILY NEEDED; Therapy: 90Edv7225 to (Evaluate:88Pqd3735) Requested for: 04Jun2014; Last Rx:04Jun2014 Ordered 8. Losartan Potassium 100 MG Oral Tablet; TAKE 1 TABLET BY MOUTH ONCE DAILY; Therapy: 51Wvc3769 to (Evaluate:20Bou2804) Requested for: 13Feb2014; Last Rx:95Sdk5103 Ordered 9. MetFORMIN HCl ER 500 MG Oral Tablet Extended Release 24 Hour; TAKE 4 TABLETS( 2000MG) BY MOUTH ONCE DAILY; Therapy: 81Etz3583 to (Evaluate:00Yji6642) Requested for: 85Iaq9265; Last Rx:81Gvm1043 Ordered 10. One-Daily Multi Vitamins Oral Tablet; TAKE 1 TABLET DAILY; Therapy: (Recorded:23Jul2012) to Recorded 11. ProAir HFA 108 (90 Base) MCG/ACT Inhalation Aerosol Solution; INHALE 2 PUFFS EVERY 4 HOURS NEEDED FOR COUGHAND WHEEZE; Therapy: 26May2008 to (Last Rx:09May2014) Requested for: 09May2014 Ordered 12. Simvastatin 20 MG Oral Tablet; TAKE ONE TABLET BY MOUTH DAILY; Therapy: 91Oyy4640 to (Evaluate:04Dec2014) Requested for: 09Dec2013; Last Rx:09Dec2013 Ordered 13. Vitamin D3 1000 UNIT Oral Tablet; 1 tab everyday; Therapy: (Recorded:23Jul2012) to Recorded Past Medical History 1. Allergic rhinitis due to pollen (477.0) (J30.1) 2. Health examination of defined subpopulation (V70.5) (Z00.8) 3. History of fibrocystic disease of breast (V13.89) (Z87.898) 4. History of (V13.29) (Z87.42) ?? 5. Hyperlipidemia (272.4) (E78.5) 6. Joint pain, knee (719.46) (M25.569) 7. Neck pain (723.1) (M54.2) 8. Screening for thyroid disorder (V77.0) (Z13.29) 9. History of Vision Assessment 10. Visit for screening mammogram (V76.12) (Z12.31) Surgical History 1. History of Biopsy Breast Open ?? Left/1980 2. History of Hysterectomy ?? pelvic floor repair also 05/09/94 Allergies 1. Ultram TABS Family History Father 1. Family history of Hypertension (V17.49) 2. Family history of Tracheitis, Acute ?? age 55 Sister 3. Family history of Diabetes Mellitus (V18.0) 4. Family history of Heart Disease (V17.49) Maternal Grandfather 5. Family history of Colon Cancer (V16.0) ?? at age 60 Social History 1. Marital History - Currently 2. Never smoked Review of Systems Complete-Female: Constitutional: negative. Head and Face: negative. Eyes: negative. ENT: negative. Cardiovascular: negative. Respiratory: negative. Genitourinary: negative. Musculoskeletal: mild joint and back pains. Integumentary and Breasts: check skin lesions on back and forehead. Neurological: negative. Psychiatric: negative. Endocrine: negative. Hematologic and Lymphatic: negative. Vitals Vital Signs [Data Includes: Current Encounter] Recorded: 85Fay8085 08:19AM Blood Pressure 130 / 80, LUE, Sitting Heart Rate 87 Respiration 16 Temperature 95.8 F, Tympanic Height 5 ft 4.5 in Weight 189 lb BMI Calculated 31.94 BSA Calculated 1.92 O2 Saturation 99 Patient Encounter SUBJECTIVE: Sumaya is a 64-year-old, 3 para 2 female here for annual healthcare maintenance exam. She has had a hysterectomy and has not had a cervix and is over 65, so further Pap smears are not needed. She did have her mammography already but needs to have her breast exam. She also is currently up-to-date on colonoscopy screening. She has a couple of concerns. First, she has some skin lesions she would like to have looked at. She has previous history of tanning bed exposure and has had numerous actinic keratoses in the past we have treated with cryotherapy. Second, she has had a little bit of aching of her joints but nothing that is terribly significant but she did want to mention it. 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 REVIEW OF SYSTEMS: As fully detailed in her electronic medical record. PHYSICAL EXAMINATION: As detailed on her scanned [employer] form. We did treat three presumed actinic keratoses with cryotherapy during her physical exam. IMPRESSION: She is currently healthy with stable hypertension and good diabetic control. Blood pressure today was 130/80. We will leave her medications unchanged at the present time and she will continue to follow for routine diabetic care every 6-12 months. Again, see scanned form and electronic medical record for all visit details. PLAN: As above. Cortney Chandra M.D./lb-11 Assessment 1. Never smoked 2. 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 Controlled diabetes mellitus (250.00) (E11.9) 4. Encounter for preventive health examination (V70.0) (Z00.00) Signatures Electronically signed by : Cortney Chandra M.D.; Sep 15 2014 10:14AM TRAINING DEVELOPMENT DIRECTOR documented in this encounter Plan of Treatment Not on file documented as of this encounter Visit Diagnoses Not on filedocumented in this encounter Care Teams Buoy Tender Relationship Specialty Start Date End Date Unknown, Provider . HIRAM PEGUERO [id number] PCP - General 03/26/18 04/29/19 Cortney Chandra MD [address] [place] [address] PCP - General Family Medicine 04/30/19 Cortney Chandra MD [address] [place] [phone] PCP Family Medicine 04/29/19 04/29/19 [facility] 03/30/23 Primary Eye Care 03/30/23 documented as of this encounter Additional Source Comments PLEASE NOTE: Replies to this message will not be received.[facility]
--- OUTSIDE RECORDS SUMMARY | 2024-03-18 05:44 | XMS_ITS | Encounter Summary ---
Author Organization [employer] Address [address] [place] [address] Care Team Providers Care Greenhouse Staff Name Role Phone Unknown, Provider Primary Care Provider Unavaila Cortney Gomez MD Unavailable [phone] Cortney Chandra MD Primary Care Provider [phone] Encounter Details Date Type Department Care Team (Late st Contact Info) Description 08/13/[address] [facility] Family Medicine [address] [facility] [place] [address] Rosemary Aquino APRN,STONEWORK TRACER [address] [place] [phone] Social History Tobacco Use Types Packs/Day Years Used Date Smoking Tobacco: Never Assessed Sex and Gender Information Value Date Recorded Sex Assigned at Not on file Gender Identity Female 01/16/2023 2:23 PM CDT Sexual Orientation Not on file documented as of this encounter Progress Notes * Rosemary Aquino, CHALINO,STONEWORK TRACER - 08/13/2018 12:00 AM CST Assessment 1. Never smoked 2. UTI (urinary tract infection) (599.0) (N39.0) 3. 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 She also has 2 cups of caffeine every morning. She is advised to decrease caffeine use and to have her blood pressure and pulse rechecked over the next couple of days. She does have a monitor at home to do so. Her urinalysis appears positive as noted aboveand will be sent for culture. She is started on Bactrim DS 1 tab twice daily times 7 days pending culture results. If she develops any fever or flulike symptoms of vomiting abdominal pain, back pain or worsening urinary symptoms she will follow-up urgently. She states understanding. Plan Orders Urinary symptom or sign UA - Culture if Indicated; Status:Resulted - Requires Verification,Retrospective By Protocol Authorization; Done: 65Tap9681 02:29PM Reason For Visit Patient in with bladder infection History of Present Illness 68-year-old female presents to the clinic today with a 1 day history of urinary urgency and frequency. She does not have dysuria or hematuria. She otherwise feels fine. She admits that she is quite nervous here in the clinic. She feels may be on edge or somewhat anxious because she is wondering if she has another bladder infection. She had similar symptoms in June 2018 but culture not performed. A previous culture in September 2017 showed mixed bacteria. Histories Reviewed The following histories were reviewed in the [facility] at today's visit and are current: Past Medical History Social History Current Meds 1. Aspirin 81 MG TABS; ONE DAILY; Last Rx:66Cpz8122 Ordered 2. Cyclobenzaprine HCl - 10 MG Oral Tablet; TAKE 1/2 TO 1 TABLET THREE TIMES DAILY; Therapy: 30Sep2010 to (Evaluate:31Sau9925) Requested for: 07Jul2016; Last Rx:07Jul2016 Ordered 3. Fluticasone Propionate 50 MCG/ACT Nasal Suspension; INSTILL 1 SPRAY DAILY IN EACH NOSTRIL; Therapy: 17Apr2009 to (Evaluate:14Apr2018) Requested for: 16Oct2017; Last Rx:16Oct2017 Ordered 4. Hydrocortisone 2.5 % External Cream; APPLY SPARINGLY TO AFFECTED AREA(S) TWICE DAILY; Therapy: 20Jul2015 to (Evaluate:81Vxg8373) Requested for: 17Jul2017; Last Rx:17Jul2017 Ordered 5. Loratadine 10 MG Oral Tablet; TAKE 1 TABLET BY MOUTH DAILY NEEDED; Therapy: 17Pno1960 to (Evaluate:12Sep2018) Requested for: 17Sep2017; Last Rx:17Sep2017 Ordered 6. Losartan Potassium 100 MG Oral Tablet; TAKE 1 TABLET BY MOUTH ONCE DAILY; Therapy: 17Mtq7572 to (Evaluate:10Jul2019) Requested for: 15Jul2018; Last Rx:15Jul2018 Ordered 7. metFORMIN HCl ER 500 MG Oral Tablet Extended Release 24 Hour; TAKE 4 TABLETS( 2000MG) BY MOUTH ONCE DAILY; Therapy: 51Uwn7372 to (Evaluate:18Jul2019) Requested for: 23Jul2018; Last Rx:23Jul2018 Ordered 8. One-Daily Multi Vitamins Oral Tablet; TAKE 1 TABLET DAILY; Therapy: (Recorded:23Jul2012) to Recorded 9. Pyridium 100 MG Oral Tablet; TAKE 1 TABLET 3 TIMES DAILY AFTER MEALS NEEDED; Therapy: 34Zav8473 to (Last Rx:11Kzw0194) Requested for: 14Jun2018 Ordered 10. Simvastatin 20 MG Oral Tablet; TAKE ONE TABLET BY MOUTH DAILY; Therapy: 45Bwt0521 to (Evaluate:10Jul2019) Requested for: 15Jul2018; Last Rx:15Jul2018 Ordered 11. Ventolin HFA 108 (90 Base) MCG/ACT Inhalation Aerosol Solution; INHALE 1 TO 2 PUFFS EVERY 4 TO 6 HOURS NEEDED; Therapy: 06Mar2017 to (Last Rx:36Uks4143) Requested for: 33Cdl4322 Ordered 12. Vitamin D3 1000 UNIT Oral Tablet; takes 2 tablets daily; Therapy: (Recorded:07Jku4166) to Recorded Allergies 1. Ultram TABS Vitals Vital Signs Recorded: 13Aug2018 02:33PM Systolic 140, LUE, Sitting Diastolic 100, LUE, Sitting Heart Rate 140 Respiration 16 Temperature 99 F, Tympanic Weight 88 kg BMI Calculated 33.12 BSA Calculated 1.93 O2 Saturation 94 Physical Exam General Appearance: OCTAVIO is healthy-appearing, alert, well nourished, well developed and in no acute distress. Pulmonary: normal bilateral breath sounds and clear to auscultation bilaterally. Cardiovascular: Tachycardic but regular rhythm with no murmur. Musculoskeletal:. No CVA tenderness. Psychiatric: appropriate mood and affect, good eye contact and answers questions appropriately. Results/Data UA - Culture if Indicated 13Aug2018 02:29PM Hukali, Rosemary Test Name Result Flag Reference Urinalysis-Color YEL Urinalysis- Appearance CLOUD A Urinalysis-Sp [place] 1.010 1.005-1.030 Urinalysis-pH 5.5 5.0-7.5 Urinalysis-Protein NEG NEGATIVE Urinalysis- Glucose NEG NEGATIVE Urinalysis-Ketone TRACE A NEGATIVE Urinalysis- Bilirub NEG NEGATIVE Urinalysis- Blood 3+ A NEGATIVE Urinalysis-Urobil 0.2 0.2-1.0 Urinalysis-Nitrite NEG NEGATIVE Urinalysis-Leuk 3+ A NEGATIVE Urinalysis-WBC TNTC A 0-4 Urinalysis-RBC TNTC A 0-4 Urinalysis-Epith FEW Urinalysis-Hyal Cast NEG Urinalysis- Bacteria MOD A UrinalysisA Urinalysis-Color YEL Urinalysis- Appearance CLOUD A Urinalysis-Sp [place] 1.010 1.005-1.030 Urinalysis-pH 5.5 5.0-7.5 Urinalysis-Protein NEG NEGATIVE Urinalysis- Glucose NEG NEGATIVE Urinalysis-Ketone TRACE A NEGATIVE Urinalysis- Bilirub NEG NEGATIVE Urinalysis- Blood 3+ A NEGATIVE Urinalysis-Urobil 0.2 0.2-1.0 Urinalysis-Nitrite NEG NEGATIVE Urinalysis-Leuk 3+ A NEGATIVE Urinalysis-WBC TNTC A 0-4 Urinalysis-RBC TNTC A 0-4 Urinalysis-Epith FEW Urinalysis-Hyal Cast NEG Urinalysis- Bacteria MOD A UrinalysisA Signatures Electronically signed by : Rosemary Aquino RN STONEWORK TRACER RN,STONEWORK TRACER; Aug 13 2018 3:19PM BOARD OPERATOR documented in this encounter Plan of Treatment Not on file documented as of this encounter Visit Diagnoses Not on filedocumented in this encounter Care Teams Greenhouse Staff Relationship Specialty Start Date End Date Unknown, Provider . HIRAM PEGUERO [id number] PCP - General 03/26/18 04/29/19 Cortney Chandra MD [address] [place] [phone] PCP - General Family Medicine 04/30/19 Cortney Chandra MD [address] [place] [address] PCP Family Medicine 04/29/19 04/29/19 [facility] 03/30/23 Primary Eye Care 03/30/23 documented as of this encounter Additional Source Comments PLEASE NOTE: Replies to this message will not be received.[facility]
== END 2024-03-14 08:17 | disposition home or self-care (01) ==
LOC: AMB 03-18 05:42
PROVIDERS: Visit Provider Emergency Medicine
DX: M54.50 Low back pain, unspecified (principal)
CPT/HCPCS: A0425; A0427

== ENCOUNTER 2024-03-14 09:08 | Inpatient (IN) | payer MEDICARE, SELFPAY ==
[2024-03-14] VITALS (9 sets, daily range): BP systolic 83–125; BP diastolic 33–63; PULSE 67–74; RESP 18–20; TEMP 36.8–37.1; O2SAT 89–95; BMI 25.8; BMI 27.6
--- NOTE | 2024-03-14 09:51 | CRLHL7_ITS ---
For Patients: As a result of the 21st Century Cures Act, medical imaging exams and procedure reports are released immediately into your electronic medical record. You may view this report before your referring provider. If you have questions, please contact your health care provider. INDICATION: Low back pain TECHNIQUE: Noncontrast sagittal and axial T1, T2, and sagittal STIR sequences are provided. No comparisons. FINDINGS: Trace grade 1 anterolisthesis of L4 on L5. Alignment is otherwise normal. There is a normal lumbar lordosis with a superimposed dextrocurvature. Normal vertebral heights. Mild type 1 Modic changes at T12-L1. Mixed degenerative endplate changes at L4-5. Bone marrow signal is otherwise normal. Moderate to severe fatty atrophy of the posterior lumbosacral musculature. STIR hyperintensity in the L2-3 interspinous space and about the L2-3 left facet joint with associated enlargement and sclerosis of the adjacent spinous processes. Paraspinal soft tissues are otherwise unremarkable. Diffuse disc desiccation. Multilevel disc height loss, most pronounced on the left at L1-2 with moderate height loss, on the right at L4-5 with severe disc height loss, and at L5-S1 with symmetric severe disc height loss. The conus medullaris and cauda equina nerve roots are unremarkable. L1-2: Left asymmetric disc bulge. Bilateral facet arthropathy with ligamentum flavum infolding, [id number]-right. Moderate left neural foraminal stenosis. There is no significant spinal canal stenosis or right neural foraminal stenosis. L2-3: Left asymmetric disc bulge. Bilateral facet arthropathy with ligamentum flavum infolding. There is no significant spinal canal stenosis or neural foraminal stenosis. L3-4: Left asymmetric disc bulge. Bilateral facet arthropathy with ligamentum flavum infolding. Mild left neural foraminal stenosis. There is no significant spinal canal stenosis or right neural foraminal stenosis. L4-5: Anterolisthesis. Right asymmetric disc bulge. Bilateral facet arthropathy with ligamentum flavum infolding, right greater than left. Moderate right neural foraminal stenosis. There is no significant spinal canal stenosis or left neural foraminal stenosis. L5-S1: There is no significant disc herniation, spinal canal stenosis, or neural foraminal stenosis. IMPRESSION: 1. 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 There is also STIR hyperintensity about the L2-3 left facet joint, suggestive of facet joint synovitis. 2. There are also type 1 Modic changes at T12-L1, indicating degenerative bony edema. 3. Moderate left neural foraminal stenosis at L1-2 and moderate right neural foraminal stenosis at L4-5, both secondary to disc bulges and facet arthropathy. 4. There is no significant spinal canal stenosis at any lumbar level. Dictated by Savage Terrazas MD @ 03/14/2024 11:31:26 AM (Electronically Signed)
[2024-03-14] MEDS: MORPHINE 4 MG/ML INJ IVP (10:17)
[2024-03-14] MEDS: ONDANSETRON 2 MG/ML inj 4 MG IVP (10:18)
--- NOTE | 2024-03-14 10:19 | ED.GENADULT ---
HPI - General Adult General Date Seen: 03/14/24 Chief complaint: Back Injury/Pain Stated complaint: Back pain Time Seen by Provider: 03/14/24 09:36 Source: patient and family Mode of arrival: EMS Limitations: no limitations History of Present Illness HPI narrative: Patient is a 74-year-old woman, previously living independently, here with her daughter for evaluation of back pain that started a few days ago and has gotten progressively worse. Pain is across the low back, central and then radiates out to both sides equally. No pain radiating into the legs. No weakness or numbness, no fevers, no vomiting, no abdominal pain, black or bloody stools, diarrhea, urinary complaints or other symptoms. She has been staying with her daughter since a fall at the end of February. Notably she did not have any back pain after that fall, this is developed over the past several days. She does have a remote history of a herniated disc, she says that was so long ago she does not remember if it felt similar not although she did have radicular symptoms at that time. Pain has become progressively worse to the point that she was unable to get out of bed today. They called 911 to get her here. She does not feel she can manage at home right now. Related Data Home Medications ?Medication ?Instructions ?Recorded ?Confirmed alendronate 70 mg tablet 70 mg PO MO 03/10/24 03/14/24 escitalopram oxalate 20 mg tablet 20 mg PO DAILY 03/10/24 03/14/24 losartan 100 mg tablet 100 mg PO HS 03/10/24 03/14/24 metformin 500 mg tablet,extended 2,000 mg PO HS 03/10/24 03/14/24 release 24 hr simvastatin 20 mg tablet 20 mg PO QPM 03/10/24 03/14/24 sulfamethoxazole 400 1 tab PO DAILY 03/10/24 03/14/24 mg-trimethoprim 80 mg tablet acetaminophen 500 mg tablet 1,000 mg PO Q4-6H PRN 03/14/24 03/14/24 ibuprofen 600 mg tablet (IBU) 600 mg PO BID PRN 03/14/24 03/14/24 Allergies Allergy/AdvReac Type Severity Reaction Status Date / Time No Known Drug Allergies Allergy Verified 03/10/24 13:07 Review of Systems Status of ROS: Reports: 10 or more systems reviewed and unremarkable except as noted in History and below PFSH PFSH Medical History (Updated 03/14/24 @ 15:32 by Tessie Griffith MD) Hyperlipidemia ?E78.5 - Hyperlipidemia, unspecified (ICD-10) Hypertension ?I10 - Essential (primary) hypertension (ICD-10) Depression ?F32.A - Depression, unspecified (ICD-10) Anxiety ?F41.9 - Anxiety disorder, unspecified (ICD-10) Osteoporosis ?M81.0 - Age-related osteoporosis without current pathological fracture (ICD-10) Type 2 diabetes mellitus ?E11.9 - Type 2 diabetes mellitus without complications (ICD-10) Surgical History (Updated 03/14/24 @ 15:23 by Tessie Griffith MD) History of breast biopsy ?Z98.890 - Other specified postprocedural states (ICD-10) History of hysterectomy ?Z90.710 - Acquired absence of both cervix and uterus (ICD-10) Family History Sister Diabetes Social History (Updated 03/14/24 @ 15:25 by Tessie Griffith MD) Narrative: [birth year]. lives alone in [place], [place]. nonsmoker, no alcohol. What is your current living situation?: I presently have a place to live Problems where you live: no known problems Problems where you live details: na In the past 12 months, utilities in danger of being shut off: no In past 12 months, lack of transportation kept you from medical appts, meetings, work, or getting things needed for daily living: no In the past 12 mos, have been you worried that your food would run out before you had money to buy more?: never true In the past 12 mos, the food you bought just didn't last and you didn't have money to buy more?: never true Highest level of school completed/degree received: Associate degree: occupational, technical, vocational program Smoking Status: Never smoker Second hand tobacco smoke exposure: No How often do you have a drink containing alcohol: never AUDIT-C Alcohol total score: 0 Non-prescribed substance use: denies use Caffeine: Yes (1 cup) How often does anyone, including family, friends and others, physically hurt you: never How often does anyone, including family, friends and others, insult or talk down to you: never How often does anyone, including family, friends and others, threaten you with harm: never How often does anyone, including family, friends and others, scream or curse at you: never service: No Exam Narrative: Exam Narrative: Vital signs as noted above. In general, an alert, well-appearing patient. Head: Normocephalic, atraumatic. Eyes: Pupils are equal reactive. Extraocular movements are full. Conjunctivae are normal. ENT: Mucous membranes are moist. Throat is normal. Neck: Supple without lymphadenopathy. Heart: Regular rate and rhythm. No murmur or rub. Lungs: Clear bilaterally. No increased work of breathing, crackles or wheezes. Abdomen: Soft and nontender. No organomegaly. Back: Nontender to palpation. No visible trauma. Extremities: Well perfused. No edema. No calf tenderness. Pulses intact. Neurologic: Patient is alert and oriented to person and place. Speech is fluent. Face is symmetric. Moves all extremities equally. Strength is 5 of 5 in bilateral lower extremities, sensation intact to light touch. Affect: Normal. Skin: Warm and dry. Well perfused. Const: Vital Signs, click to edit/add: Vital Signs - 24 hr 03/14/24 09:15 Temperature 98.3 F Pulse Rate [Pulse Oximeter] 67 Respiratory Rate 18 Blood Pressure [Ri ght Upper Arm] 125/63 Pulse Oximetry 95 Oxygen Delivery Me thod Room Air Documenting provider has reviewed patient's vital signs: yes Course Course ED Course: Discussed imaging options, I actually am able to get an MRI done today and I think overall that will provide more beneficial information. My suspicion for fracture is fairly low given that she did not have any back pain for the week after this fall. She does not feel she can manage at home and requests admission for pain control. Will place an IV, give some morphine and Zofran in anticipation of needing to lie flat for the MRI. Does have ongoing pain and requests something else for pain control, I will give her 2.5 mg of oxycodone along with 10 mg of Flexeril. She was able to get the MRI done, read as follows by Radiology:FINDINGS: Trace grade 1 anterolisthesis of L4 on L5. Alignment is otherwise normal. There is a normal lumbar lordosis with a superimposed dextrocurvature. Normal vertebral heights. Mild type 1 Modic changes at T12-L1. Mixed degenerative endplate changes at L4-5. Bone marrow signal is otherwise normal. Moderate to severe fatty atrophy of the posterior lumbosacral musculature. STIR hyperintensity in the L2-3 interspinous space and about the L2-3 left facet joint with associated enlargement and sclerosis of the adjacent spinous processes. Paraspinal soft tissues are otherwise unremarkable. Diffuse disc desiccation. Multilevel disc height loss, most pronounced on the left at L1-2 with moderate height loss, on the right at L4-5 with severe disc height loss, and at L5-S1 with symmetric severe disc height loss. The conus medullaris and cauda equina nerve roots are unremarkable. L1-2: Left asymmetric disc bulge. Bilateral facet arthropathy with ligamentum flavum infolding, [id number]. Moderate left neural foraminal stenosis. There is no significant spinal canal stenosis or right neural foraminal stenosis. L2-3: Left asymmetric disc bulge. Bilateral facet arthropathy with ligamentum flavum infolding. There is no significant spinal canal stenosis or neural foraminal stenosis. L3-4: Left asymmetric disc bulge. Bilateral facet arthropathy with ligamentum flavum infolding. Mild left neural foraminal stenosis. There is no significant spinal canal stenosis or right neural foraminal stenosis. L4-5: Anterolisthesis. Right asymmetric disc bulge. Bilateral facet arthropathy with ligamentum flavum infolding, right greater than left. Moderate right neural foraminal stenosis. There is no significant spinal canal stenosis or left neural foraminal stenosis. L5-S1: There is no significant disc herniation, spinal canal stenosis, or neural foraminal stenosis. IMPRESSION: 1. 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 There is also STIR hyperintensity about the L2-3 left facet joint, suggestive of facet joint synovitis. 2. There are also type 1 Modic changes at T12-L1, indicating degenerative bony edema. 3. Moderate left neural foraminal stenosis at L1-2 and moderate right neural foraminal stenosis at L4-5, both secondary to disc bulges and facet arthropathy. 4. There is no significant spinal canal stenosis at any lumbar level. Plan will be admission to the hospital for pain control and further management as indicated. Vital Signs Vital signs: Initial Vital Signs Temperature 98.3 F 03/14/24 09:15 Temperature Source Temporal Artery Scan 03/14/24 09:15 Pulse Rate 67 03/14/24 09:15 Respiratory Rate 18 03/14/24 09:15 Blood Pressure 125/63 03/14/24 09:15 Blood Pressure Mean 83 03/14/24 09:15 Pulse Oximetry 95 03/14/24 09:15 Oxygen Delivery Method Room Air 03/14/24 09:15 Vital Signs Temperature 98.3 F 03/14/24 09:15 Pulse Rate 67 03/14/24 09:15 Respiratory Rate 18 03/14/24 09:15 Blood Pressure 125/63 03/14/24 09:15 Pulse Oximetry 95 03/14/24 09:15 Oxygen Delivery Method Room Air 03/14/24 09:15 Temperature 98.3 F 03/15/24 03:00 Pulse Rate 86 03/15/24 03:00 Respiratory Rate 20 03/15/24 03:00 Blood Pressure 138/76 03/15/24 03:00 Pulse Oximetry 92 03/15/24 03:00 Oxygen Delivery Method Room Air 03/15/24 03:00 Medications Administered Medications: Generic Name Dose Route Start Last Admin Trade Name Freq PRN Reason Stop Dose Admin Acetaminophen 1,300 mg 03/14/24 13:03 03/15/24 04:36 Acetaminophen 650 Mg Tablet Er PO 1,300 mg Q8H CARLA Administration Enoxaparin Sodium 40 mg 03/14/24 21:00 03/14/24 20:21 Enoxaparin 40 Mg/0.4 Ml Inj SUBCUT 40 mg HS CARLA Administration Insulin Aspart 0 unit 03/14/24 17:30 03/14/24 20:31 Insulin Aspart 100 Unit/Ml SUBCUT 4 unit ACHS CARLA Administration Protocol Ketorolac Tromethamine 30 mg 03/14/24 15:09 03/14/24 17:31 Ketorolac 30 Mg/Ml Inj IVP 30 mg Q6H PRN Administration back pain Lidocaine 1 patch 03/14/24 15:30 03/14/24 16:27 Lidocaine 5% Patch TRANSDERMA 1 patch Q24H CARLA Administration Protocol Metformin HCl 2,000 mg 03/14/24 21:00 03/14/24 20:20 Metformin Er 500 Mg PO 2,000 mg HS CARLA Administration Simvastatin 20 mg 03/14/24 18:00 03/14/24 18:44 Simvastatin 20 Mg Tablet PO 20 mg QPM CARLA Administration Sodium Chloride 5 ml 03/14/24 21:00 03/14/24 20:21 Sodium Chloride 0.9 % (Flush) 10 Ml Syringe IVF 5 ml BID CARLA Administration Discontinued Medications Generic Name Dose Route Start Last Admin Trade Name Sidney PRN Reason Stop Dose Admin Cyclobenzaprine HCl 10 mg 03/14/24 11:52 03/14/24 12:06 Cyclobenzaprine Hcl 10 Mg Tablet PO 03/14/24 11:53 10 mg ONCE ONE Administration Methylprednisolone Sodium Succinate 125 mg 03/14/24 13:17 03/14/24 14:19 Methylprednisolone Sod Succ 62.5 Mg/Ml (125) IVP 03/14/24 13:18 125 mg ONCE ONE Administration Morphine Sulfate 4 mg 03/14/24 09:51 03/14/24 10:17 Morphine 4 Mg/Ml Inj IVP 03/14/24 09:52 4 mg ONCE ONE Administration Ondansetron HCl 4 mg 03/14/24 09:51 03/14/24 10:18 Ondansetron 2 Mg/Ml Inj IVP 03/14/24 09:52 4 mg ONCE ONE Administration Oxycodone HCl 2.5 mg 03/14/24 11:52 03/14/24 12:06 Oxycodone 5 Mg Tablet PO 03/14/24 11:53 2.5 mg ONCE ONE Administration Pantoprazole Sodium 40 mg 03/14/24 16:00 03/14/24 16:28 Pantoprazole Sodium 40 Mg Inj IVP 03/14/24 16:01 40 mg ONCE ONE Administration Medical Decision Making Lab Data Labs: Lab Results 03/14/24 Range/Units 10:15 WBC 10.59 (4.50-11.00) K/uL RBC 3.10 L (4.00-5.20) m/uL Hgb 9.0 L (12.0-16.0) gm/dL Hct 28.5 L (33.0-51.0) % MCV 92 (80-100) fL MCH 29 (26-34) pg MCHC 32 (32-36) gm/dL RDW Coeff of Evaristo 16.0 H (11.5-15.5) % Plt Count 210 (140-440) K/uL Neut % (Auto) 44.5 (42.0-72.0) % Lymph % (Auto) 11.0 L (20-44) % [place] % (Auto) 42.8 H (0.0-11.0) % Eos % (Auto) 0.5 (0.0-7.0) % Baso % (Auto) 0.3 (0.0-3.0) % Neut # (Auto) 4.71 (1.7-7.0) K/uL Lymph # (Auto) 1.20 (0.90-2.90) K/uL [place] # (Auto) 4.50 H (0.00-0.90) K/UL Eos # (Auto) 0.05 (0.00-0.50) K/uL Baso # (Auto) 0.03 (0.00-0.30) K/uL Abs Immat Gran (auto) 0.10 (0.00-0.30) K/uL Imm/Tot Granulo (auto) 0.9 % ESR 34 H (2-20) mm/hr Sodium 139 (135-149) mmol/L Potassium 4.0 (3.6-5.1) mmol/L Chloride 107 (96-114) mmol/L Carbon Dioxide 28 (20-32) mmol/L Anion Gap 4 L (7-15) mEq/L BUN 25 (7-30) mg/dL Creatinine 0.6 (0.5-1.5) mg/dL Estimated Creat Clear 43.07 Estimated GFR 93 ml/min Glucose 107 (60-115) mg/dL Hemoglobin A1c 6.1 H (0-5.6) % Uric Acid 3.0 (2.2-8.4) mg/dL Calcium 8.6 (8.4-10.6) mg/dL Magnesium 2.1 (1.5-2.6) mg/dL Iron 53 (37-170) ug/dL TIBC 269 (265-497) ug/dL % Saturation 20 (20-50) % C-Reactive Protein 4.9 H (0.5-1.0) mg/dL Discharge Plan Discharge Clinical Impression: Low back pain Patient Disposition: Admitted As Observation Condition: Stable
--- NOTE | 2024-03-14 10:23 | ED.NURSE ---
Patient taken to MRI
[2024-03-14] MEDS: OXYCODONE 5 MG TABLET 2.5 MG PO (12:06)
[2024-03-14] MEDS: CYCLOBENZAPRINE HCL 10 MG TABLET PO (12:06)
--- NOTE | 2024-03-14 13:03 | P.IMPN_ITS ---
Subjective Interval history: ADMISSION HISTORY AND PHYSICAL - HOSPITALIST Chief Complaint: HPI: ER COURSE: CODE STATUS: EMERGENCY CONTACT PLAN: I've updated the PFSH, medications and allergies in the [facility] tabs. INVESTIGATIONS: LABS/MICRO/ECG/IMAGING MRI 03/14/24 1. 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 There is also STIR hyperintensity about the L2-3 left facet joint, suggestive of facet joint synovitis. 2. There are also type 1 Modic changes at T12-L1, indicating degenerative bony edema. 3. Moderate left neural foraminal stenosis at L1-2 and moderate right neural foraminal stenosis at L4-5, both secondary to disc bulges and facet arthropathy. 4. There is no significant spinal canal stenosis at any lumbar level. REVIEW OF SYSTEMS: 12-point ROS completed with patient and negative unless otherwise stated in HPI or below. PHYSICAL EXAM: CONSTITUTIONAL: Conversive, good historian. A/O. Knows setting and context. VITAL SIGNS: see record. HEENT: Normocephalic, atraumatic. PERRL, EOMI, conjunctivae pink, no scleral icterus. Ears and nose externally normal. Pharynx normal. NECK: No JVD. No carotid bruit, no thyromegaly, no adenopathy. CHEST: Clear to auscultation bilaterally HEART: S1 and S2 normal. No harsh murmurs. Edema MUSCULOSKELETAL: No gross joint deformity or swelling. NEURO: Cranial nerves intact. Grossly intact. No asymmetric findings. SKIN: No rashes, petechiae, concerning changes PSYCHIATRIC: Euthymic. ADMIT TO MEDSURG: FLOOR CARE DVT: Lovenox GI: PO intake Time spent: Today I spent 75 minutes seeing the patient, discussing the patient with ER staff, reviewing [facility] and [facility] notes/diagnostics, discussing the care plan with our care time that includes social work, PT/OT, pharmacy, RT, detention and documenting my impressions and plan in the medical record. Exam Const: Vital Signs, click to edit/add: Vital Signs - 24 hr 03/14/24 09:15 03/14/24 12:43 Temperature 98.3 F 98.3 F Pulse Rate [Pulse Oximeter] 67 Pulse Rate [Right Radial] 73 Respiratory Rate 18 18 Blood Pressure [Ri ght Arm] 108/49 L Blood Pressure [Ri t Upper Arm] 125/63 Pulse Oximetry 95 89 Oxygen Delivery Me thod Room Air Room Air
[2024-03-14 13:25] LABS: Basophils Absolute Auto 0.03 K/uL (0.00-0.30); Basophils Percent Auto 0.3 % (0.0-3.0); Eosinophils Absolute Auto 0.05 K/uL (0.00-0.50); Eosinophils Percent Auto 0.5 % (0.0-7.0); Hematocrit 28.5 % (33.0-51.0); Immature Granulocytes Pct Auto 0.9 %; Mean Corpuscular HGB Conc 32 gm/dL (32-36); Mean Corpuscular Hemoglobin 29 pg (26-34); Mean Corpuscular Volume 92 fL (80-100); Monocytes Percent Auto 42.8 % (0.0-11.0); Neutrophils Absolute Auto 4.71 K/uL (1.7-7.0); Neutrophils Percent Auto 44.5 % (42.0-72.0); Platelet Count* 210 K/uL (140-440); White Blood Count* 10.59 K/uL (4.50-11.00)
[2024-03-14 13:43] LABS: Slide Review Reflex No
[2024-03-14 14:01] LABS: Chloride* 107 mmol/L (96-114); Hemoglobin A1C* 6.1 % (0-5.6); Sodium* 139 mmol/L (135-149)
[2024-03-14 14:04] LABS: Creatinine* 0.6 mg/dL (0.5-1.5); Est. Creatinine Clearance* 43.07; Estimated Glomerular Filt Rate 93 ml/min
[2024-03-14 14:05] LABS: Anion Gap 4 mEq/L (7-15); Blood Urea Nitrogen* 25 mg/dL (7-30); Calcium* 8.6 mg/dL (8.4-10.6); Carbon Dioxide* 28 mmol/L (20-32); Glucose* 107 mg/dL (60-115)
[2024-03-14 14:06] LABS: Magnesium* 2.1 mg/dL (1.5-2.6)
[2024-03-14 14:08] LABS: C Reactive Protein* 4.9 mg/dL (0.5-1.0)
[2024-03-14] MEDS: METHYLPREDNISOLONE SOD SUCC 62.5 MG/ML (125) 125 MG IVP (14:19)
[2024-03-14] MEDS: ACETAMINOPHEN 650 MG TABLET ER 1300 MG PO ×2 (14:19→20:20)
--- NOTE | 2024-03-14 14:45 | P.IMHP_ITS ---
Hospitalist- H&P: HPI History of Present Illness Date Seen: 03/14/24 Chief complaint: Back pain Narrative: ADMISSION HISTORY AND PHYSICAL - HOSPITALIST Chief Complaint: [place] [facility] 03/05; increasing low back pain HPI: 74 y/o WF with a hx of type 2 DM, HTN, HLP and anxiety/depression presents 9 days after a fall at her daughter's home. She is right hand dominant. She had been at her son's wedding all day on 03/05. She does not use a cane or walker and can drive and lives alone. She was coming in the front door of her daughter's home after the wedding and either got tripped up by the dog or caught her foot on the threshold but found herself down on her left side/shoulder. No head injury. No LOC. she did come to the ER that night; no back pain or injury at this evaluation. her left shoulder was the primary pain source and a traumatic rotator cuff tear was suspected. She has since seen orthopedics and has MRI ordered with follow-up after. In the in term, approximately 3 days prior to admission her back started becoming painful. Each day the pain has increased in intensity. There are no new falls. There are no bowel or bladder complaints. She has no numbness or tingling down her legs or buttocks. States extreme pain and burning sensation in her mid low back. No fever. She does have a history of degenerative disc disease but has never had injections or surgery. Prior to her fall she did not have back pain. She has been staying with her daughter since the fall. They have been using alternating doses of Tylenol and ibuprofen without much relief. They needed to use EMS to bring her from bed to the ER earlier today. ER COURSE: MRI, morphine and we were asked to admit CODE STATUS: FULL CODE EMERGENCY CONTACT PLAN: Rel To Pat Daughter Cell I've updated the PFSH, medications and allergies in the Expanse tabs. INVESTIGATIONS: LABS/MICRO/ECG/IMAGING She is afebrile. Her blood pressure is 108/49, 125/63. Her pulse is in the 70s. Her respiratory rate is 18. Her pulse ox is in the high 80s to low 90s on room air. She weighs 75.3 kilos CBC reflects a anemia with a hemoglobin of 9.0. MCV is 92. Her platelets are normal and her white count is normal. Complete metabolic panel is reassuring with normal electrolytes and normal renal function. Her A1c is 6.1. Her uric acid is normal. Her magnesium is normal. His CRP is 4.9 MRI 03/14/24 1. 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 There is also STIR hyperintensity about the L2-3 left facet joint, suggestive of facet joint synovitis. 2. There are also type 1 Modic changes at T12-L1, indicating degenerative bony edema. 3. Moderate left neural foraminal stenosis at L1-2 and moderate right neural foraminal stenosis at L4-5, both secondary to disc bulges and facet arthropathy. 4. There is no significant spinal canal stenosis at any lumbar level. REVIEW OF SYSTEMS: 12-point ROS completed with patient and negative unless otherwise stated in HPI or below. PHYSICAL EXAM: CONSTITUTIONAL: Conversive, good historian. A/O. Knows setting and context. VITAL SIGNS: see record. HEENT: Normocephalic, atraumatic. PERRL, EOMI, conjunctivae pink, no scleral icterus. Ears and nose externally normal. Pharynx normal. NECK: No JVD. No carotid bruit, no thyromegaly, no adenopathy. CHEST: Clear to auscultation bilaterally HEART: S1 and S2 normal. No harsh murmurs. Edema MUSCULOSKELETAL/Neuro: Patella reflexes intact; neg babinksi, +straight leg raise; strength decreased 2/2 pain, spine palpation is tender in the proximal lumbar spinous processes. NEURO: Cranial nerves intact. Grossly intact. No asymmetric findings. SKIN: No rashes, petechiae, concerning changes PSYCHIATRIC: Euthymic. ADMIT TO MEDSURG: FLOOR CARE DVT: Lovenox GI: PO intake Time spent: Today I spent 75 minutes seeing the patient, discussing the patient with ER staff, reviewing Expanse and EPIC notes/diagnostics, discussing the care plan with our care time that includes social work, PT/OT, pharmacy, RT, longterm and documenting my impressions and plan in the medical record. [facility] Medical History (Updated 03/14/24 @ 15:32 by Tessie Griffith MD) Hyperlipidemia ?E78.5 - Hyperlipidemia, unspecified (ICD-10) Hypertension ?I10 - Essential (primary) hypertension (ICD-10) Depression ?F32.A - Depression, unspecified (ICD-10) Anxiety ?F41.9 - Anxiety disorder, unspecified (ICD-10) Osteoporosis ?M81.0 - Age-related osteoporosis without current pathological fracture (ICD- 10) Type 2 diabetes mellitus ?E11.9 - Type 2 diabetes mellitus without complications (ICD-10) Surgical History (Updated 03/14/24 @ 15:23 by Tessie Griffith MD) History of breast biopsy ?Z98.890 - Other specified postprocedural states (ICD-10) History of hysterectomy ?Z90.710 - Acquired absence of both cervix and uterus (ICD-10) Family History Sister Diabetes Social History (Updated 03/14/24 @ 15:25 by Tessie Griffith MD) Narrative: 11/26. lives alone in [place], [place]. nonsmoker, no alcohol. What is your current living situation?: I presently have a place to live Problems where you live: no known problems Problems where you live details: na In the past 12 months, utilities in danger of being shut off: no In past 12 months, lack of transportation kept you from medical appts, meetings, work, or getting things needed for daily living: no In the past 12 mos, have been you worried that your food would run out before you had money to buy more?: never true In the past 12 mos, the food you bought just didn't last and you didn't have money to buy more?: never true Highest level of school completed/degree received: Associate degree: occupational, technical, vocational program Smoking Status: Never smoker Second hand tobacco smoke exposure: No How often do you have a drink containing alcohol: never AUDIT-C Alcohol total score: 0 Non-prescribed substance use: denies use Caffeine: Yes (1 cup) How often does anyone, including family, friends and others, physically hurt you : never How often does anyone, including family, friends and others, insult or talk down to you: never How often does anyone, including family, friends and others, threaten you with harm: never How often does anyone, including family, friends and others, scream or curse at you: never service: No Meds Home Medications and Allergies Home Medications ?Medication ?Instructions ?Recorded ?Confirmed ?Type alendronate 70 mg tablet 70 mg PO MO 03/10/24 03/14/24 History escitalopram oxalate 20 mg tablet 20 mg PO DAILY 03/10/24 03/14/24 History losartan 100 mg tablet 100 mg PO DAILY 03/10/24 03/14/24 History metformin 500 mg tablet,extended 1,000 mg PO BID 03/10/24 03/14/24 History release 24 hr simvastatin 20 mg tablet 20 mg PO QPM 03/10/24 03/14/24 History sulfamethoxazole 400 1 tab PO DAILY 03/10/24 03/14/24 History mg-trimethoprim 80 mg tablet acetaminophen 500 mg tablet 1,000 mg PO Q4-6H PRN 03/14/24 03/14/24 History ibuprofen 600 mg tablet (IBU) 600 mg PO BID PRN 03/14/24 03/14/24 History Allergies Allergy/AdvReac Type Severity Reaction Status Date / Time No Known Drug Allergies Allergy Verified 03/10/24 13:07 Exam Const: Vital Signs, click to edit/add: Vital Signs - 24 hr 03/14/24 09:15 03/14/24 12:43 03/14/24 13:00 Temperature 98.3 F 98.3 F Pulse Rate [Pulse Oximeter] 67 Pulse Rate [Right Radial] 73 Respiratory Rate 18 18 18 Blood Pressure [Ri ght Arm] 108/49 L Blood Pressure [Ri ght Upper Arm] 125/63 Pulse Oximetry 95 89 89 Oxygen Delivery Me thod Room Air Room Air Room Air 03/14/24 13:19 Temperature Pulse Rate [Pulse Oximeter] Pulse Rate [Right Radial] Respiratory Rate Blood Pressure [Ri ght Arm] Blood Pressure [Ri ght Upper Arm] Pulse Oximetry 89 Oxygen Delivery Me thod Room Air Hospitalist - H&P: Result Labs Labs: Short CBC 03/14/24 Range/Units 10:15 WBC 10.59 (4.50-11.00) K/uL Hgb 9.0 L (12.0-16.0) gm/dL Hct 28.5 L (33.0-51.0) % Plt Count 210 (140-440) K/uL BMP 03/14/24 10:15 Sodium 139 Potassium 4.0 Chloride 107 Carbon Dioxide 28 BUN 25 Creatinine 0.6 Glucose 107 Calcium 8.6 Assessment and Plan Assessment and plan (1) Kissing spine of lumbar region: Problem comment: MRI 03/14/24: 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 There is also STIR hyperintensity about the L2-3 left facet joint, suggestive of facet joint synovitis. -solumedrol upon arrival to the floor -scheduled tylenol, lidoderm -prn toradol and oxy -PT/OT Status: Acute (2) Hyperlipidemia: Problem comment: continue crestor therapy Status: Acute (3) Degenerative disc disease, lumbar: Problem comment: see #1 Status: Acute (4) Fall: Problem comment: [facility] 03/05 with left shoulder injury. likely traumatic RC tear. Status: Acute (5) Type 2 diabetes mellitus: Problem comment: continue metformin; QACHS bedside blood glucose monitoring; SSI. A1C 6.1 Status: Acute (6) Hypertension: Problem comment: losartan monotherapy on hold. Status: Acute (7) Anxiety: Problem comment: continue lexapro Status: Acute (8) Rotator cuff tear, left: Problem comment: MRI was scheduled for tomorrow; will see if we can go ahead and keep appt Status: Acute (9) Laceration of elbow, left: Problem comment: from fall on 03/05; sutures need to be removed. Status: Acute (10) Anemia: Problem comment: unclear on chronicity - no previous records -has been on ibuprofen since fall -IV PPI; guaiac stool -iron panel Status: Acute (11) Recurrent UTI: Problem comment: -daily bactrim; will suggest topical estrogen in the outpatient setting Status: Acute
--- NOTE | 2024-03-14 15:04 | REH.PT ---
PT Eval & Treat orders received. Chart reviewed. requested hold PT eval until tomorrow. Will see then.
[2024-03-14 15:14] LABS: Erythrocyte SedimentationRate* 34 mm/hr (2-20)
[2024-03-14 15:18] LABS: Iron* 53 ug/dL (37-170)
[2024-03-14 15:27] LABS: Percent Iron Saturation 20 % (20-50); Total Iron Binding Capacity 269 ug/dL (265-497)
[2024-03-14] MEDS: LIDOCAINE 5% PATCH 1 PATCH TRANSDERMA (16:27)
[2024-03-14] MEDS: PANTOPRAZOLE SODIUM 40 MG INJ IVP (16:28)
[2024-03-14] MEDS: KETOROLAC 30 MG/ML inj IVP (17:31)
[2024-03-14] MEDS: SIMVASTATIN 20 MG TABLET PO (18:44)
[2024-03-14] MEDS: METFORMIN ER 500 MG 2000 MG PO (20:20)
[2024-03-14] MEDS: ENOXAPARIN 40 MG/0.4 ML INJ SUBCUT (20:21)
[2024-03-14] MEDS: SODIUM CHLORIDE 0.9 % (FLUSH) 10 ML SYRINGE 5 ML IVF (20:21)
[2024-03-14] MEDS: INSULIN ASPART 100 UNIT/ML SUBCUT (20:31)
[2024-03-15] VITALS (7 sets, daily range): BP systolic 124–145; BP diastolic 54–81; PULSE 70–87; RESP 14–20; TEMP 36.6–37.1; O2SAT 92–94
[2024-03-15] MEDS: ACETAMINOPHEN 650 MG TABLET ER 1300 MG PO ×3 (04:36→20:43)
[2024-03-15 06:28] LABS: Basophils Percent Auto 0.1 % (0.0-3.0); Hematocrit 26.9 % (33.0-51.0); Hemoglobin* 8.7 gm/dL (12.0-16.0); Immature Granulocytes Pct Auto 1.4 %; Lymphocytes Percent Auto 4.5 % (20-44); Mean Corpuscular HGB Conc 32 gm/dL (32-36); Mean Corpuscular Hemoglobin 30 pg (26-34); Mean Corpuscular Volume 91 fL (80-100); Platelet Count* 222 K/uL (140-440); RDW Coefficient of Variation % 15.7 % (11.5-15.5); Red Blood Count 2.95 m/uL (4.00-5.20); White Blood Count* 15.47 K/uL (4.50-11.00)
[2024-03-15 06:43] LABS: Slide Review Reflex No
--- NOTE | 2024-03-15 06:44 | PC.NURSE ---
: pleasant and cooperative. A x 2 with gb and walker. No c/o pain at rest. Son at bedside at HS. Son and DTRs questions answered via speaker phone in rm. Pt had soft BPs at start of shift, asymptomatic, MD updated, no new orders. Recent BP 138/76. BG at HS was 307, 4 units given per sliding scale.
[2024-03-15 06:48] LABS: Chloride* 108 mmol/L (96-114)
[2024-03-15 06:49] LABS: Potassium* 4.1 mmol/L (3.6-5.1); Sodium* 139 mmol/L (135-149)
[2024-03-15 06:51] LABS: Creatinine* 0.6 mg/dL (0.5-1.5); Est. Creatinine Clearance* 43.07; Estimated Glomerular Filt Rate 93 ml/min
[2024-03-15 06:52] LABS: Anion Gap 6 mEq/L (7-15); Blood Urea Nitrogen* 35 mg/dL (7-30); Carbon Dioxide* 25 mmol/L (20-32); Glucose* 132 mg/dL (60-115)
[2024-03-15 06:53] LABS: Calcium* 8.5 mg/dL (8.4-10.6)
[2024-03-15 06:55] LABS: C Reactive Protein* 8.1 mg/dL (0.5-1.0)
[2024-03-15] MEDS: predniSONE 20 MG TABLET 40 MG PO (08:16)
[2024-03-15] MEDS: PANTOPRAZOLE SODIUM 40 MG INJ IVP (08:17)
[2024-03-15] MEDS: SODIUM CHLORIDE 0.9 % (FLUSH) 10 ML SYRINGE 5 ML IVF ×2 (08:18→20:43)
[2024-03-15] MEDS: SULFA/TRIMETHOPRIM 400 MG/80 MG TABLET 1 TAB PO (09:15)
[2024-03-15] MEDS: ESCITALOPRAM 10 MG TABLET 20 MG PO (09:15)
--- NOTE | 2024-03-15 10:10 | P.IMPN_ITS ---
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 There is also STIR hyperintensity about the L2-3 left facet joint, suggestive of facet joint synovitis. -solumedrol upon arrival to the floor --> daily prednisone -scheduled tylenol, lidoderm -prn toradol and oxy -PT/OT Status: Acute (2) Anemia: Problem details: -9.0 --> 8.7 - unclear on chronicity - no previous records --> pt reports no known anemia; no blood stools. -has been on ibuprofen since fall -IV PPI; guaiac stool -iron panel is normal Status: Acute (3) Fall: Problem details: [facility] 03/05 with left shoulder injury. likely traumatic RC tear. Status: Acute (4) Type 2 diabetes mellitus: Problem details: continue metformin; QACHS bedside blood glucose monitoring; SSI. A1C 6.1 Status: Acute (5) Hypertension: Problem details: will restart losartan from home med list Status: Acute (6) Rotator cuff tear, left: Problem details: MRI pending Status: Acute (7) Laceration of elbow, left: Problem details: from fall on 03/05; sutures need to be removed. Status: Acute Subjective Date Seen: 03/15/24 Interval history: Daily Progress Note - Hospital Medicine #: 2 CC: intractable back pain, rotator cuff tear (traumatic/left), acute anemia 24 HOUR UPDATE: -no stools -iron normal -up with platform walker; gets diaphoretic - lots of cuing - moving slow with therapies Notable Labs, Micro, Rads, Interventions: Vitals stable CBC reflects a jump in her white blood cell count however she did get IV Solu- Medrol Hemoglobin is down to 8.7 MCV normal Normal platelet Normal electrolytes her BUN has jumped up to 35, creatinine is normal. Objective: more alert today Vitals: see above Lungs: Clear. Cardiac: S1S2. Disposition/Potential discharge - home vs SNF Exam Const: Vital Signs, click to edit/add: Vital Signs - 24 hr 03/14/24 12:43 03/14/24 13:00 03/14/24 13:19 Temperature 98.3 F Pulse Rate [Right Radial] 73 Respiratory Rate 18 18 Blood Pressure [Ri ght Arm] 108/49 L Pulse Oximetry 89 89 89 Oxygen Delivery Id thod Room Air Room Air Room Air 03/14/24 15:45 03/14/24 15:45 03/14/24 20:10 Temperature 98.6 F 98.7 F Pulse Rate [Right Radial] 73 71 Respiratory Rate 18 18 20 Blood Pressure [Ri ght Arm] 104/43 L 83/33 L Pulse Oximetry 92 90 Oxygen Delivery Id thod Room Air Room Air 03/14/24 21:10 03/14/24 22:21 03/14/24 22:27 Temperature 98.3 F Pulse Rate [Right Radial] 74 72 Respiratory Rate 20 20 Blood Pressure [Ri ght Arm] 107/51 L 111/55 L Pulse Oximetry 89 91 [facility] 03/15/24 03:00 03/15/24 07:00 Temperature 98.3 F 98.5 F Pulse Rate [Right Radial] 86 87 Respiratory Rate 20 14 Blood Pressure [Ri ght Arm] 138/76 145/81 H Pulse Oximetry 92 94 Oxygen Delivery Id thod Room Air Room Air Labs Labs: Laboratory Results - last 24 hr 03/14/24 03/14/24 03/15/24 10:15 15:06 05:50 WBC 10.59 15.47 H RBC 3.10 L 2.95 L Hgb 9.0 L 8.7 L Hct 28.5 L 26.9 L MCV 92 91 MCH 29 30 MCHC 32 32 RDW Coeff of Evaristo 16.0 H 15.7 H Plt Count 210 222 Neut % (Auto) 44.5 57.0 Lymph % (Auto) 11.0 L 4.5 L [place] % (Auto) 42.8 H 37.0 H Eos % (Auto) 0.5 0.0 Baso % (Auto) 0.3 0.1 Neut # (Auto) 4.71 8.80 H Lymph # (Auto) 1.20 0.70 L [place]ah # (Auto) 4.50 H 5.70 H Eos # (Auto) 0.05 0.00 Baso # (Auto) 0.03 0.00 Abs Immat Gran (auto) 0.10 0.20 Imm/Tot Granulo (auto) 0.9 1.4 ESR 34 H Sodium 139 139 Potassium 4.0 4.1 Chloride 107 108 Carbon Dioxide 28 25 Anion Gap 4 L 6 L BUN 25 35 H Creatinine 0.6 0.6 Estimated Creat Clear 43.07 43.07 Estimated GFR 93 93 Glucose 107 132 H Hemoglobin A1c 6.1 H Uric Acid 3.0 Calcium 8.6 8.5 Magnesium 2.1 Iron 53 TIBC 269 % Saturation 20 C-Reactive Protein 4.9 H 8.1 H Lab Acknowledgement Test Added 03/15/24 10:06 WBC RBC Hgb Hct MCV MCH MCHC RDW Coeff of Evaristo Plt Count Neut % (Auto) Lymph % (Auto) [place] % (Auto) Eos % (Auto) Baso % (Auto) Neut # (Auto) Lymph # (Auto) [place]ah # (Auto) Eos # (Auto) Baso # (Auto) Abs Immat Gran (auto) Imm/Tot Granulo (auto) ESR Sodium Potassium Chloride Carbon Dioxide Anion Gap BUN Creatinine Estimated Creat Clear Estimated GFR Glucose Hemoglobin A1c Uric Acid Calcium Magnesium Iron TIBC % Saturation C-Reactive Protein Lab Acknowledgement Test Added
--- NOTE | 2024-03-15 10:33 | PC.NURSE ---
Patient is being transport to MRI at 10:34
--- NOTE | 2024-03-15 11:15 | PC.NURSE ---
patient is returning at 11:16 from MRI
[2024-03-15] MEDS: INSULIN ASPART 100 UNIT/ML SUBCUT ×3 (11:45→20:44)
--- NOTE | 2024-03-15 13:47 | CRLHL7_ITS ---
For Patients: As a result of the Century Cures Act, medical imaging exams and procedure reports are released immediately into your electronic medical record. You may view this report before your referring provider. If you have questions, please contact your health care provider. INDICATION: Head injury, not otherwise specified. Altered mental status. COMPARISON: 03/05/2024 TECHNIQUE: CT of the head without intravenous contrast. Please note that all CT scans at this facility use dose modulation, iterative reconstruction, and/or weight-based dosing when appropriate to reduce radiation dose to as low as reasonably achievable. FINDINGS: The brain is normal in attenuation with preserved yung-white matter differentiation. No hydrocephalus. No mass or mass effect. No intracranial hemorrhage. Intact skull base and cranial vault. Visualized orbits are without significant incidental findings. Visualized paranasal sinuses and mastoid air cells are clear. IMPRESSION: No acute findings. Please note that all CT scans at this facility use dose modulation, iterative reconstruction, and/or weight-based dosing when appropriate to reduce radiation dose to as low as reasonably achievable. Dictated by Agusto Stout MD @ 03/15/2024 2:26:33 PM (Electronically Signed)
[2024-03-15] MEDS: LIDOCAINE 5% PATCH 1 PATCH TRANSDERMA (15:19)
--- NOTE | 2024-03-15 16:46 | PC.SOCIAL ---
Addendum entered by ENIO Hough 03/15/24 17:01: Discharge planning: calender worker helper secure emailed a referral to Vanesa at [facility] on behalf of the pt for them to review. Social work to follow-up as needed. Original Note: Discharge planning: Pt is being recommended for short-term rehab after her discharge from the hospital. Pt is in observation status; however, she does have a Medicare Advantage plan with [facility], which requires a prior authorization. calender worker helper spoke to pt's daughter, October, and sent a list of jail facilities that contract with the Medicare Advantage [facility] plan to October via email at [email or web address]. calender worker helper shared with pt's daughter that [facility] is the only jail facility still open in [place] and they do contract with the pt's insurance. Pt's daughter stated it was okay for this worker to send a referral to [facility] on behalf of the pt if they have openings. Social work to follow-up as needed.
[2024-03-15] MEDS: SIMVASTATIN 20 MG TABLET PO (17:23)
--- NOTE | 2024-03-15 18:26 | PC.NURSE ---
End of shift [id number]: Pt alert and oriented x3, cooperative. A x 1 with gb and walker. Pt states no pain at rest. Pain with activity is rated 10/10. Ice applied, Pt noted relief. Pt denies N/V/CP/SOB. Pt tolerating reg diet/fluid well, Pt states not having much of an appetite. Son and daughter at bedside throughout the day. Pt showered and appears resting with call light in reach.
[2024-03-15] MEDS: PSYLLIUM HUSK (WITH SUGAR) 12 GM PACKET PO (20:43)
[2024-03-15] MEDS: METFORMIN ER 500 MG 2000 MG PO (20:43)
[2024-03-15] MEDS: LOSARTAN POTASSIUM 50 MG TABLET 100 MG PO (20:43)
[2024-03-15] MEDS: ENOXAPARIN 40 MG/0.4 ML INJ SUBCUT (20:43)
[2024-03-15 21:07] LABS: Appearance Urine Clear (Clear); Bilirubin Urine Negative (Negative); Blood Urine 2+ (Negative); Color Urine Yellow (Yellow); Glucose Urine Negative (Negative); Ketones Urine Negative (Negative); Leukocyte Esterase Urine Negative (Negative); Nitrite Urine Positive (Negative); Protein Urine Negative (Negative); Specific Gravity Urine 1.025 (1.000-1.030); Urobilinogen Urine 0.2 (0.2-1.0); pH Urine 5.5 (5.0-8.5)
[2024-03-15 21:28] LABS: Bacteria Urine Many; RBC Urine 0-2 (0-2); WBC Urine 0-2 (0-5)
[2024-03-16] VITALS (7 sets, daily range): BP systolic 124–142; BP diastolic 56–78; PULSE 66–83; RESP 16–18; TEMP 36.5–36.9; O2SAT 91–96
[2024-03-16] MEDS: SENNOSIDES/DOCUSATE TABLET 1 TAB PO (05:02)
[2024-03-16] MEDS: ACETAMINOPHEN 650 MG TABLET ER 1300 MG PO ×3 (05:03→22:20)
--- NOTE | 2024-03-16 06:48 | PC.NURSE ---
Pt is alert and oriented x3. Afebrile. Pt reports 0/10 pain while lying in bed but reports 8/10 pain with movement, pain managed with scheduled medications. Pt denies chest pain, SOB, and N/V. No BM overnight, pt unable to recall last BM, gave PRN Senna. Pt is up SBA with walker, voiding and tolerating a regular diet. ?
[2024-03-16 07:04] LABS: Hematocrit 27.4 % (33.0-51.0); Hemoglobin* 8.7 gm/dL (12.0-16.0); Mean Corpuscular HGB Conc 32 gm/dL (32-36); Mean Corpuscular Hemoglobin 29 pg (26-34); Mean Corpuscular Volume 91 fL (80-100); Platelet Count* 246 K/uL (140-440); Red Blood Count 3.01 m/uL (4.00-5.20); White Blood Count* 13.71 K/uL (4.50-11.00)
[2024-03-16 07:08] LABS: Slide Review Reflex No
[2024-03-16 07:21] LABS: Chloride* 108 mmol/L (96-114); Potassium* 4.1 mmol/L (3.6-5.1); Sodium* 140 mmol/L (135-149)
[2024-03-16 07:24] LABS: Anion Gap 6 mEq/L (7-15); Blood Urea Nitrogen* 31 mg/dL (7-30); Carbon Dioxide* 26 mmol/L (20-32); Creatinine* 0.7 mg/dL (0.5-1.5); Est. Creatinine Clearance* 43.07; Estimated Glomerular Filt Rate 90 ml/min
[2024-03-16 07:25] LABS: Calcium* 8.6 mg/dL (8.4-10.6); Glucose* 103 mg/dL (60-115)
--- NOTE | 2024-03-16 07:53 | CRLHL7_ITS ---
For Patients: As a result of the Century Cures Act, medical imaging exams and procedure reports are released immediately into your electronic medical record. You may view this report before your referring provider. If you have questions, please contact your health care provider. HISTORY: Fall. Concussion. Weakness. TECHNIQUE: Multiplanar multisequence noncontrast MR images of the brain. COMPARISON: CT brain 03/15/2024. FINDINGS: [id number] diffuse cerebral volume loss. No mass effect or midline shift. Scattered and patchy FLAIR hyperintensities in the supratentorial white matter, typical for mild chronic microvascular ischemic changes. No diffusion restriction to suggest acute infarction. No intracranial hemorrhage or pathologic extra-axial fluid collection. The major arterial flow voids at the skull base are preserved. The globes are symmetric. The paranasal sinuses are well aerated. Small bilateral mastoid effusions. IMPRESSION: 1. No acute intracranial abnormality. 2. Mild to moderate diffuse cerebral volume loss and mild chronic microvascular ischemic changes. Dictated by Danial Hanna MD @ 03/16/2024 11:56:25 AM (Electronically Signed)
--- NOTE | 2024-03-16 09:02 | P.IMPN_ITS ---
Progress Note: A&P Assessment and plan (1) Fall: Problem details: DOI 03/05 with left shoulder injury. likely traumatic RC tear. laceration to the left elbow (sutures removed 03/14), contusion/concussion to the left frontal- temporal region of head. evolving back pain and mental status changes (TBI?) Status: Acute (2) AMS (altered mental status): Problem details: MOCA 06/04. Pt is alert but is not baseline wrt to cognition, insight. Movements are slowed and cuing needed. repeat head CT without acute findings both 03/05 and 03/15. MR brain 03/16 pending. neurology eval to follow MR 03/16. 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 There is also STIR hyperintensity about the L2-3 left facet joint, suggestive of facet joint synovitis. -solumedrol upon arrival to the floor --> daily prednisone -scheduled tylenol, lidoderm -prn toradol and oxy (not being requested/administered) -PT/OT Status: Acute (4) Degenerative disc disease, lumbar: Problem details: see #2 Status: Acute (5) Rotator cuff tear, left: Problem details: between fall and admission, saw orthopedics and had imaging ordered. imaging was completed 03/15 - awaiting results. Status: Acute (6) Laceration of elbow, left: Problem details: from fall on 03/05; sutures removed 03/14 Status: Acute (7) Anemia: Problem details: -9.0 --> 8.7 --> 8.7 - unclear on chronicity - no previous records --> pt reports no known anemia, no blood stools. -has been on ibuprofen since fall -IV PPI; guaiac stool (no stools) -iron panel is normal Status: Acute (8) Type 2 diabetes mellitus: Problem details: continue metformin; QACHS bedside blood glucose monitoring; SSI. A1C 6.1 BS 97-212 Status: Acute (9) Hypertension: Problem details: will restart losartan from home med list Status: Acute (10) Recurrent UTI: Problem details: -daily bactrim; will suggest topical estrogen in the outpatient setting Status: Acute (11) Hyperlipidemia: Problem details: continue crestor therapy Status: Acute (12) Anxiety: Problem details: continue lexapro Status: Acute Subjective Date Seen: 03/16/24 Interval history: Daily Progress Note - Hospital Medicine #: 3 CC: AMS, intractable back pain, rotator cuff tear (traumatic/left), acute anemia 24 HOUR UPDATE: -no stools -iron normal -up with platform walker; but therapists report 06/04 on MOCA and lots of cuing needed. Pt looks less in pain, though she reports it, and more stuck with initiation and recruiting fluid muscle movement. Notable Labs, Micro, Rads, Interventions: Vitals stable CBC reflects a jump in her white blood cell count however she did get IV Solu- Medrol, now downtrending Hemoglobin is stable. no stools to test for guaiac. MCV normal Normal platelet Normal electrolytes her BUN bumped mildly but is now downtrending, creatinine is normal. Objective: alert but subdued, it appears there is limited insight into this progression Vitals: see above Lungs: Clear. Cardiac: S1S2. back: mildly tender along spinous process and paraspinal muscle. gait: I watch her slowly come to seated position on side of bed; lots of cuing to use platform walker, to initiate her turn and walking to bathroom. seems her left leg drags or is less mobile than the right. everything seems slow and deliberate. Disposition/Potential discharge - SNF vs acute rehab Exam Const: Vital Signs, click to edit/add: Vital Signs - 24 hr 03/15/24 11:00 03/15/24 15:00 03/15/24 19:00 Temperature 98.7 F 98 F 98.2 F Pulse Rate [Right Radial] 80 80 80 Respiratory Rate 16 18 20 Blood Pressure [Ri ght Arm] 128/65 140/71 H 131/61 Pulse Oximetry 93 93 92 Oxygen Delivery Me thod Room Air Room Air Room Air 03/15/24 22:28 03/15/24 22:29 03/16/24 03:45 Temperature 98.4 F 97.7 F Pulse Rate [Right Radial] 70 75 Respiratory Rate 18 18 16 Blood Pressure [Ri ght Arm] 124/54 L 136/56 L Pulse Oximetry 92 96 Oxygen Delivery Me thod Room Air Room Air 03/16/24 08:15 Temperature 98.4 F Pulse Rate [Right Radial] 69 Respiratory Rate 16 Blood Pressure [Ri ght Arm] 135/60 Pulse Oximetry 94 Oxygen Delivery Me thod Room Air Labs Labs: Laboratory Results - last 24 hr 03/15/24 03/15/24 03/16/24 10:06 19:55 05:58 WBC 13.71 H RBC 3.01 L Hgb 8.7 L Hct 27.4 L MCV 91 MCH 29 MCHC 32 Plt Count 246 Sodium 140 Potassium 4.1 Chloride 108 Carbon Dioxide 26 Anion Gap 6 L BUN 31 H Creatinine 0.7 Estimated Creat Clear 43.07 Estimated GFR 90 Glucose 103 Calcium 8.6 C-Reactive Protein 7.0 H Urine Color Yellow Urine Appearance Clear Urine pH 5.5 Ur Specific [place] 1.025 Urine Protein Negative Urine Glucose (UA) Negative Urine Ketones Negative Urine Blood 2+ A Urine Nitrite Positive A Urine Bilirubin Negative Urine Urobilinogen 0.2 Ur Leukocyte Esterase Negative Urine RBC 0-2 Urine WBC 0-2 Ur Squamous Epith Cells None Urine Bacteria Many A Lab Acknowledgement Test Added
[2024-03-16] MEDS: predniSONE 20 MG TABLET 40 MG PO (09:22)
[2024-03-16] MEDS: ESCITALOPRAM 10 MG TABLET 20 MG PO (09:22)
[2024-03-16] MEDS: SULFA/TRIMETHOPRIM 400 MG/80 MG TABLET 1 TAB PO (09:22)
[2024-03-16] MEDS: PSYLLIUM HUSK (WITH SUGAR) 12 GM PACKET PO (09:23)
--- NOTE | 2024-03-16 12:07 | PC.SOCIAL ---
Discharge planning: spoilage worker spoke with pt's daughter, October, today via phone and let her know that [facility] is reviewing pt's referral. spoilage worker also informed pt's daughter that [facility] stated that they would have an opening on at the earliest and that is if they can indeed accept the pt. Social work to follow-up as needed.
[2024-03-16] MEDS: SODIUM CHLORIDE 0.9 % (FLUSH) 10 ML SYRINGE 5 ML IVF ×2 (12:54→20:43)
--- NOTE | 2024-03-16 15:38 | CRLHL7_ITS ---
For Patients: As a result of the Century Cures Act, medical imaging exams and procedure reports are released immediately into your electronic medical record. You may view this report before your referring provider. If you have questions, please contact your health care provider. Indication: Weakness. Tremor. Technique: MRI of the cervical spine was performed without the use of intravenous contrast. Comparison: None relevant available. Findings: The vertebral body heights appear maintained without evidence of fracture. No discrete T1 hypointense marrow infiltrating process. [id number] multilevel disc height loss and degeneration. No abnormal cord signal. C2-3: Minimal disc bulge without spinal canal or neural foraminal narrowing. C3-4: Disc osteophyte complexes results in mild spinal canal narrowing. Mild neural foraminal narrowing secondary to uncovertebral joint and facet hypertrophy. C4-5: Disc osteophyte complex results in mild spinal canal narrowing. Moderately severe neural foraminal narrowing secondary to uncovertebral joint and facet hypertrophy. C5-6: No spinal canal narrowing. Moderate left and mild right neural foraminal narrowing secondary to uncovertebral joint and facet hypertrophy. C6-7: Minimal spinal canal narrowing. Moderate neural foraminal narrowing. C7-T1: Disc bulge results in mild spinal canal narrowing. Moderate neural foraminal narrowing. Impression: 1. At C4-5, mild spinal canal with moderately severe neural foraminal stenosis. 2. At C5-6, moderate left and mild right neural foraminal narrowing. 3. At C6-7 and C7-T1, moderate neural foraminal narrowing. 4. No abnormal cord signal. Dictated by Peewee Terry MD @ 03/16/2024 6:23:46 PM (Electronically Signed)
[2024-03-16] MEDS: LIDOCAINE 5% PATCH 1 PATCH TRANSDERMA (16:08)
[2024-03-16] MEDS: INSULIN ASPART 100 UNIT/ML SUBCUT ×2 (18:03→22:21)
[2024-03-16] MEDS: SIMVASTATIN 20 MG TABLET PO (18:15)
[2024-03-16 18:54] LABS: PCR FLU A Negative PCR FLU A (Negative); PCR FLU B Negative PCR FLU B (Negative); PCR RSV Negative PCR RSV (Negative); SARS PCR* Negative SARS-CoV-2 (Negative)
[2024-03-16] MEDS: LOSARTAN POTASSIUM 50 MG TABLET 100 MG PO (20:43)
[2024-03-16] MEDS: METFORMIN ER 500 MG 2000 MG PO (20:43)
[2024-03-16] MEDS: ENOXAPARIN 40 MG/0.4 ML INJ SUBCUT (20:43)
--- NOTE | 2024-03-16 22:43 | PC.NURSE ---
End of Shift: Patient pleasant and cooperative. VSS, afebrile. Patient denies pain while in bed, but reports pain while moving, managed with scheduled medications, see MAR. SBA to bathroom with walker and gait belt. No BM this shift. Tolerating regular diet.
[2024-03-17 04:09] VITALS: BP 142/68; PULSE 73; RESP 16; TEMP 36.4; O2SAT 93
[2024-03-17] MEDS: ACETAMINOPHEN 650 MG TABLET ER 1300 MG PO ×2 (06:08→16:11)
[2024-03-17 07:00] LABS: Hematocrit 27.6 % (33.0-51.0); Hemoglobin* 8.8 gm/dL (12.0-16.0); Mean Corpuscular HGB Conc 32 gm/dL (32-36); Mean Corpuscular Hemoglobin 29 pg (26-34); Mean Corpuscular Volume 90 fL (80-100); Platelet Count* 270 K/uL (140-440); Red Blood Count 3.06 m/uL (4.00-5.20); White Blood Count* 12.78 K/uL (4.50-11.00)
--- NOTE | 2024-03-17 07:01 | PC.NURSE ---
Pt is alert and oriented to self and place. Afebrile. Pt reports 0/10 pain while lying in bed but reports 8-10/10 pain in back and left arm with movement, pain managed with scheduled medications. Pt denies chest pain, SOB, and N/V. Pt is up SBA with walker, voiding and tolerating a regular diet. ?
[2024-03-17 07:02] LABS: Slide Review Reflex No
[2024-03-17 07:19] LABS: Chloride* 107 mmol/L (96-114); Potassium* 4.1 mmol/L (3.6-5.1); Sodium* 139 mmol/L (135-149)
[2024-03-17 07:21] LABS: Creatinine* 0.6 mg/dL (0.5-1.5); Est. Creatinine Clearance* 43.07; Estimated Glomerular Filt Rate 93 ml/min
[2024-03-17 07:22] LABS: Anion Gap 7 mEq/L (7-15); Blood Urea Nitrogen* 28 mg/dL (7-30); Carbon Dioxide* 25 mmol/L (20-32); Creatine Kinase* 71 U/L (41-117); Glucose* 92 mg/dL (60-115)
[2024-03-17 07:23] LABS: Calcium* 8.8 mg/dL (8.4-10.6)
[2024-03-17 07:25] LABS: C Reactive Protein* 5.4 mg/dL (0.5-1.0)
[2024-03-17 07:27] LABS: Hematocrit 27.6 % (33.0-51.0)
[2024-03-17 07:38] VITALS: BP 144/68; PULSE 79; RESP 18; TEMP 36.5; O2SAT 93
[2024-03-17 07:52] LABS: Erythrocyte SedimentationRate* 52 mm/hr (2-20)
[2024-03-17 08:17] LABS: Vitamin B12* < 159 pg/mL (243-894)
[2024-03-17 09:21] LABS: Fecal Occult Blood* Positive (Negative)
[2024-03-17] MEDS: predniSONE 20 MG TABLET 40 MG PO (09:25)
[2024-03-17] MEDS: cefTRIAXone 1 GM in 0.9 % SODIUM CHLORIDE Mini-bag 100 ML IVPB (09:25)
[2024-03-17] MEDS: PSYLLIUM HUSK (WITH SUGAR) 12 GM PACKET PO (09:26)
[2024-03-17] MEDS: ESCITALOPRAM 10 MG TABLET 20 MG PO (09:26)
[2024-03-17] MEDS: SODIUM CHLORIDE 0.9 % (FLUSH) 10 ML SYRINGE 5 ML IVF ×2 (09:26→20:37)
[2024-03-17] MEDS: 0.9 % SODIUM CHLORIDE 250 ml IV (09:32)
[2024-03-17 11:11] VITALS: BP 134/71; PULSE 82; RESP 16; TEMP 36.7; O2SAT 94
[2024-03-17] MEDS: INSULIN ASPART 100 UNIT/ML SUBCUT ×3 (11:40→20:37)
--- NOTE | 2024-03-17 12:24 | P.IMPN_ITS ---
Progress Note: A&P Assessment and plan (1) Fall: Problem details: DOI 03/05 with left shoulder injury. likely traumatic RC tear. laceration to the left elbow (sutures removed 03/14), contusion/concussion to the left frontal- temporal region of head. evolving back pain and mental status changes (TBI?) but also found to have acute UTI, b12 deficiency. Status: Acute (2) AMS (altered mental status): Problem details: MOCA 06/04 but improved to . multifactorial? UTI, b12 deficiency, new anemia, underlying cognitive decline as part of Parkinson's? Pt is alert but is not baseline wrt to cognition, insight. Movements are slowed and cuing needed. repeat head CT without acute findings both 03/05 and 03/15. MR brain 03/16 no acute findings Neuro: see [facility] for full consult. Parkinsonism suspected but could be multifactorial acute issues. 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 There is also STIR hyperintensity about the L2-3 left facet joint, suggestive of facet joint synovitis. -solumedrol upon arrival to the floor --> daily prednisone -scheduled tylenol, lidoderm -prn toradol and oxy (not being requested/administered) -PT/OT to continue at SNF -Back and spine clinic appt at after discharge Status: Acute (4) Degenerative disc disease, lumbar: Problem details: see #3 Status: Acute (5) Acute UTI: Problem details: E.coli. on Rocephin; will be on cipro at discharge. Status: Acute (6) Anemia: Problem details: -9.0 --> 8.7 --> 8.7 --> 8.8 - unclear on chronicity - daughter reports normal (12.5) 1 year ago. - likely gastritis from ibuprofen with +guaiac stool, not clinically obvious, iron normal. -has been on ibuprofen since her fall -PPI and adding HPylori to stool study -iron panel is normal Status: Acute (7) B12 deficiency: Problem details: daily replacement upon discharge IM replacement x 1 on 03/17 Status: Acute (8) Guaiac positive stools: Problem details: -adding hpylori stool antigen -no mehdi bleeding -not replacing iron -avoid NSAIDS Status: Acute (9) Rotator cuff tear, left: Problem details: acute on chronic needs reverse total shoulder will be seeing Dr. Campbell after acute rehab Status: Acute (10) Laceration of elbow, left: Problem details: from fall on 03/05; sutures removed 03/14 Status: Acute (11) Type 2 diabetes mellitus: Problem details: continue metformin; QACHS bedside blood glucose monitoring; SSI. A1C 6.1 BS 97-212 Status: Acute (12) Hypertension: Problem details: will restart losartan from home med list Status: Acute (13) Recurrent UTI: Problem details: -current UTI - holding Bactrim. -treating with Rocephin then oral cipro -consider topical estrogen as an outpatient Status: Acute (14) Hyperlipidemia: Problem details: continue crestor therapy Status: Acute (15) Anxiety: Problem details: continue lexapro Status: Acute Subjective Date Seen: 03/17/24 Interval history: Daily Progress Note - Hospital Medicine #: 4 CC: AMS, intractable back pain, rotator cuff tear (traumatic/left), acute anemia 24 HOUR UPDATE: -stools - normal, however guaiac + -iron normal, b12 low. folate pending. -up with platform walker; but therapists report 06/04 on MOCA and lots of cuing needed. Pt looks less in pain, though she reports it, and more stuck with initiation and recruiting fluid muscle movement. Notable Labs, Micro, Rads, Interventions: Vitals stable CBC reflects a jump in her white blood cell count however she did get IV Solu- Medrol, now downtrending Hemoglobin is stable. MCV normal Normal platelet Normal electrolytes her BUN bumped mildly but is now downtrending, creatinine is normal. Objective: alert but subdued, it appears there is limited insight into this progression Vitals: see above Lungs: Clear. Cardiac: S1S2. back: mildly tender along spinous process and paraspinal muscle. gait: I watch her slowly come to seated position on side of bed; lots of cuing to use platform walker, to initiate her turn and walking to bathroom. seems her left leg drags or is less mobile than the right. everything seems slow and deliberate. Disposition/Potential discharge - SNF vs acute rehab Exam Const: Vital Signs, click to edit/add: Vital Signs - 24 hr 03/16/24 15:00 03/16/24 15:22 03/16/24 19:01 Temperature 98.2 F 98.5 F Pulse Rate [Pulse Oximeter] Pulse Rate [Right Radial] 83 83 79 Respiratory Rate 18 18 18 Blood Pressure [Ri ght Arm] 132/78 130/68 Pulse Oximetry 91 92 Oxygen Delivery Me thod Room Air Room Air 03/16/24 23:50 03/17/24 04:09 03/17/24 07:38 Temperature 97.8 F 97.5 F L 97.7 F Pulse Rate [Pulse Oximeter] 79 Pulse Rate [Right Radial] 66 73 Respiratory Rate 16 16 18 Blood Pressure [Ri ght Arm] 142/66 H 142/68 H 144/68 H Pulse Oximetry 94 93 93 Oxygen Delivery Me thod Room Air Room Air Room Air 03/17/24 11:11 Temperature 98.1 F Pulse Rate [Pulse Oximeter] 82 Pulse Rate [Right Radial] Respiratory Rate 16 Blood Pressure [Ri ght Arm] 134/71 Pulse Oximetry 94 Oxygen Delivery Me thod Room Air Labs Labs: Laboratory Results - last 24 hr 03/14/24 03/16/24 03/17/24 09:00 18:00 06:18 WBC 12.78 H RBC 3.06 L Hgb 8.8 L Hct 27.6 L MCV MCH MCHC Plt Count ESR Sodium Potassium Chloride Carbon Dioxide Anion Gap BUN Creatinine Estimated Creat Clear Estimated GFR Glucose Calcium Total Creatine Kinase C-Reactive Protein Vitamin B12 Stool Occult Blood Positive A SARS-CoV-2 (PCR) Negative SARS-CoV-2 Influenza Type A (PCR) Negative PCR FLU A Influenza Type B (PCR) Negative PCR FLU B RSV (PCR) Negative PCR RSV 03/17/24 06:18 WBC RBC Hgb Hct 27.6 L MCV 90 MCH 29 MCHC 32 Plt Count 270 ESR 52 H Sodium 139 Potassium 4.1 Chloride 107 Carbon Dioxide 25 Anion Gap 7 BUN 28 Creatinine 0.6 Estimated Creat Clear 43.07 Estimated GFR 93 Glucose 92 Calcium 8.8 Total Creatine Kinase 71 C-Reactive Protein 5.4 H Vitamin B12 < 159 L Stool Occult Blood SARS-CoV-2 (PCR) Influenza Type A (PCR) Influenza Type B (PCR) RSV (PCR)
[2024-03-17 13:29] LABS: Lab Add On Test New Spec Needed
--- NOTE | 2024-03-17 13:49 | P.DS_ITS ---
DS: Providers Provider Date Seen: 03/17/24 Date of admission: 03/16/24 12:47 Primary care physician: Not a Local Provider Admitting Clinician: Tessie Griffith MD Consults: 03/14/24 13:03 Consult to Occupational Therapy [CONS] Routine Comment: Reason(s) for OT Consult:: Evaluate and Treat Any Restrictions?:: No Restrictions Consult to Physical Therapy [CONS] Routine Comment: Reason(s) for PT Consult:: Evaluate and Treat Any Restrictions?:: No Restrictions Consult to Patient Care Provider [CONS] Routine Comment: Reason for Consult:: Social Service Consult Attending Physician on discharge: Tessie Griffith MD DS: Diagnosis Discharge Diagnosis (1) Fall: Status: Acute Problem details: DOI 03/05 with left shoulder injury. likely traumatic RC tear. laceration to the left elbow (sutures removed 03/14), contusion/concussion to the left frontal- temporal region of head. evolving back pain and mental status changes (TBI?) but also found to have acute UTI, b12 deficiency. (2) AMS (altered mental status): Status: Acute Problem details: MOCA 06/04 but improved to . multifactorial? UTI, b12 deficiency, new anemia, underlying cognitive decline as part of Parkinson's? Pt is alert but is not baseline wrt to cognition, insight. Movements are slowed and cuing needed. repeat head CT without acute findings both 03/05 and 03/15. MR brain 03/16 no acute findings Neuro: see epic for full consult. Parkinsonism suspected but could be multifactorial acute issues. (3) Acute UTI: Status: Acute Problem details: E.coli. on Rocephin; will be on cipro at discharge. (4) 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: Status: Acute Problem details: MRI 03/14/24: Stigmata of Baastrup disease with STIR hyperintensity in the L2-3 interspinous space, indicating interspinous bursitis. There is also STIR hyperintensity about the L2-3 left facet joint, suggestive of facet joint synovitis. -solumedrol upon arrival to the floor --> daily prednisone -scheduled tylenol, lidoderm -prn toradol and oxy (not being requested/administered) -PT/OT to continue at SNF -Back and spine clinic appt at after discharge (5) Anemia: Status: Acute Problem details: -9.0 --> 8.7 --> 8.7 --> 8.8 - unclear on chronicity - daughter reports normal (12.5) 1 year ago. - likely gastritis from ibuprofen with +guaiac stool, not clinically obvious, ir on normal. -has been on ibuprofen since her fall -PPI and adding HPylori to stool study -iron panel is normal (6) B12 deficiency: Status: Acute Problem details: daily replacement upon discharge IM replacement x 1 on 03/17 (7) Guaiac positive stools: Status: Acute Problem details: -adding hpylori stool antigen -no mehdi bleeding -not replacing iron -avoid NSAIDS (8) Degenerative disc disease, lumbar: Status: Acute Problem details: see #4 (9) Rotator cuff tear, left: Status: Acute Problem details: acute on chronic needs reverse total shoulder will be seeing Dr. Campbell after acute rehab (10) Laceration of elbow, left: Status: Acute Problem details: from fall on 03/05; sutures removed 03/14 (11) Type 2 diabetes mellitus: Status: Acute Problem details: continue metformin; QACHS bedside blood glucose monitoring; SSI. A1C 6.1 BS 97-212 (12) Recurrent UTI: Status: Acute Problem details: -current UTI - holding Bactrim. -treating with Rocephin then oral cipro -consider topical estrogen as an outpatient (13) Hypertension: Status: Acute Problem details: will restart losartan from home med list (14) Hyperlipidemia: Status: Acute Problem details: continue crestor therapy (15) Anxiety: Status: Acute Problem details: continue lexapro DS: Summary Hospital Course Hospital Course: FINAL DIAGNOSIS/FOLLOW UP ISSUES: Fall 03/05/2024 - ER eval that night; dx with laceration/RC tear to the left shoulder. Gait difficulty brought her back days later. Back pain/Gait difficulty - spine MRI- arthritis; some likely new inflammation - on prednisone, scheduled tylenol. Avoid opioids. Neuro changes/AMS - first MOCA was 11, repeat 19. some masked facies; tremor, rigidity - Neuro consulted - concern for Parkinson's. GI bleed; mild - +guaiac stools, acute anemia. Hold NSAIDS, PPI. stools infrequent. b12 deficiency - unclear how much of the neuro picture attributed to this. Replaced IM x 1 - daily oral. Acute UTI - recurrent. Rocephin in house; oral cipro at 3L Acute traumatic RC tear, left - Dr. Campbell following. likely will need total reverse shoulder replacement. BRIEF HOSPITAL COURSE: Patient was admitted for 5 days. Synopsis of acute inpatient issues are outlined above. Chronic medical conditions with notable findings outlined above. Initially, we were managing acute back pain. It became clear that her rigidity, need for cuing, pain out of proportion to movements made us concerned for a more diffuse problem. She had some fluctuating mental status. This improved by discharge. It is possible an acute UTI, opioids in the ED (not on the floor), b 12 deficiency, concussion from fall could all be contributing to her clinical picture. Neurology comments: On exam, she has some masked facies vs flat affect, some resting tremor, some dyskinetic finger tapping. Possibly some parkinsonism causing these symptoms - suspect these may be more subtle at baseline and are worse in the setting of acute illness. Discussed with patient and family that if she continues to have any difficulty with gait, falls, or tremor after her acute illness, she could be evaluated in the outpatient setting by a neurologist. DISCHARGE MEDICATIONS: See Reconciled list - SIGNIFICANT CHANGES: No NSAIDS B12 daily Folate daily PPI daily Cipro for 3 days for UTI (holding bactrim for now) Prednisone taper Specific instructions to the patient and follow-up are outlined below. REVIEW OF SYSTEMS No new chest pain or dyspnea Pain controlled No voiding difficulties Tolerating diet challenge PHYSICAL EXAM: CONSTITUTIONAL: alert, more interactive but just a few words. NAD. VITAL SIGNS: see record. HEENT: Normocephalic, atraumatic. PERRL, EOMI, conjunctivae pink, no scleral icterus. Ears and nose externally normal. Pharynx normal. NECK: No JVD. No carotid bruit, no thyromegaly, no adenopathy. CHEST: Clear to auscultation bilaterally. HEART: S1 and S2 normal. Edema ABDOMEN: Soft, nontender. Normal bowel sounds. MUSCULOSKELETAL: No gross joint deformity or swelling. NEURO: Cranial nerves intact. Grossly intact. No asymmetric findings. However resting tremor in the left arm/leg. stiffness, general rigidity noted. SKIN: No rashes, petechiae, concerning changes PSYCHIATRIC: Mood euthymic. DISPOSITION: Rehab at [facility] outpatient f/u with IM, neurology, back and spine clinic. Time spent on discharge 37 minutes. Status at Discharge Functional status at discharge: uses cane/walker Overall status at discharge: patient is not back to baseline Time Spent with Patient Time attestation: Total time spent providing and/or coordinating discharge services: Time spent: Greater than 30 minutes Exam Const: Vital Signs, click to edit/add: Vital Signs - 24 hr 03/16/24 15:00 03/16/24 15:22 03/16/24 19:01 Temperature 98.2 F 98.5 F Pulse Rate [Pulse Oximeter] Pulse Rate [Right Radial] 83 83 79 Respiratory Rate 18 18 18 Blood Pressure [Ri ght Arm] 132/78 130/68 Pulse Oximetry 91 92 Oxygen Delivery Me thod Room Air Room Air 03/16/24 23:50 03/17/24 04:09 03/17/24 07:38 Temperature 97.8 F 97.5 F L 97.7 F Pulse Rate [Pulse Oximeter] 79 Pulse Rate [Right Radial] 66 73 Respiratory Rate 16 16 18 Blood Pressure [Ri ght Arm] 142/66 H 142/68 H 144/68 H Pulse Oximetry 94 93 93 Oxygen Delivery Me thod Room Air Room Air Room Air 03/17/24 11:11 Temperature 98.1 F Pulse Rate [Pulse Oximeter] 82 Pulse Rate [Right Radial] Respiratory Rate 16 Blood Pressure [Ri ght Arm] 134/71 Pulse Oximetry 94 Oxygen Delivery Me thod Room Air DS: Data Data Completed and Pending Labs on day of discharge: Labs from last 24 hours 03/17/24 03/17/24 03/17/24 13:10 06:18 06:18 WBC 12.78 H RBC 3.06 L Hgb 8.8 L Hct 27.6 L 27.6 L MCV 90 MCH 29 MCHC 32 Plt Count 270 ESR 52 H Sodium 139 Potassium 4.1 Chloride 107 Carbon Dioxide 25 Anion Gap 7 BUN 28 Creatinine 0.6 Estimated Creat Clear 43.07 Estimated GFR 93 Glucose 92 Calcium 8.8 Total Creatine Kinase 71 C-Reactive Protein 5.4 H Vitamin B12 < 159 L 25-OH Vitamin D Total Pending RBC Folate Request Pending Stool Occult Blood SARS-CoV-2 (PCR) Influenza Type A (PCR) Influenza Type B (PCR) RSV (PCR) Lab Acknowledgement New Spec Needed 03/16/24 03/14/24 18:00 09:00 WBC RBC Hgb Hct MCV MCH MCHC Plt Count ESR Sodium Potassium Chloride Carbon Dioxide Anion Gap BUN Creatinine Estimated Creat Clear Estimated GFR Glucose Calcium Total Creatine Kinase C-Reactive Protein Vitamin B12 25-OH Vitamin D Total RBC Folate Request Stool Occult Blood Positive A SARS-CoV-2 (PCR) Negative SARS-CoV-2 Influenza Type A (PCR) Negative PCR FLU A Influenza Type B (PCR) Negative PCR FLU B RSV (PCR) Negative PCR RSV Lab Acknowledgement Discharge Plan Discharge Disposition: [facility] Date of Admission: 03/16/24 12:47 Attending Provider on Discharge: Tessie Griffith Primary Care Provider: Provider,Not a Local Condition: Stable Discharge Medications: New ciprofloxacin HCl [Cipro] 250 mg tablet 250 mg PO BID Qty: 6 0RF acetaminophen 650 mg tablet extended release 1,300 mg PO Q12H Qty: 120 0RF prednisone 20 mg tablet 20 mg PO DAILY Qty: 16 0RF Rx Instructions: 16 TABS: Take two tabs each morning for the next four days. Then, take one tab daily for five days, then take 1/2 tab for six days. Lastly, take the other bottle of prednisone (5mg) and take one tab for five days. prednisone 5 mg tablet 5 mg PO DAILY Qty: 5 0RF mecobalamin (vitamin B12) [B12 Active] 1,000 mcg tablet,chewable 1,000 mcg PO DAILY Qty: 30 0RF folic acid 1 mg tablet 1 mg PO DAILY Qty: 30 0RF omeprazole 20 mg capsule,delayed release(DR/EC) 20 mg PO DAILY Qty: 30 0RF Continued metformin 500 mg tablet extended release 24 hr 2,000 mg PO HS losartan 100 mg tablet 100 mg PO HS escitalopram oxalate 20 mg tablet 20 mg PO DAILY simvastatin 20 mg tablet 20 mg PO QPM alendronate 70 mg tablet 70 mg PO MO Held sulfamethoxazole-trimethoprim 400-80 mg tablet 1 tab PO DAILY Hold Instructions: Resume on 03/28/24. I recommend a urine culture to be sure she has cleared infection and defer to Dr. Corey for future prophylaxis. She should consider topical estrogen at a minimum. Discontinued acetaminophen 500 mg tablet 1,000 mg PO Q4-6H PRN ibuprofen [IBU] 600 mg tablet 600 mg PO BID PRN Discharge Orders: Discharge Order (Routine); Ordered 03/18/24 Ordered By: Tessie Griffith Activity Level: Light activity and Up with assist Discharge Diet: Regular Follow Up Appointments: [facility] [Provider Group] ([facility] follow up -parkinsonian movements. ) Mary Espinoza MD [Staff Physician] - 03/24/24 11:00 am ([facility] for follow-up/new patient. October Kathy's mom. ) Joaquim Trivedi MD [Staff Physician] - 05/30/24 2:15 pm ([facility] [address] [place], [place] [address] Phone:) [facility] Admit [facility]: SNF Discharge Potential: Fair Length of Stay: <30 days Can use facility standing orders?: Yes Code Status: Full Code Therapy: Physical Therapy and Occupational Therapy Therapy Orders: Evaluate and Treat, Gait Training and ADL Oxygen: No Urinary Catheter: No Orders are good >30 days: Yes
[2024-03-17 14:05] LABS: Vitamin D 25 Hydroxy* 30 ng/mL (30-80)
[2024-03-17] MEDS: CYANOCOBALAMIN 1,000 MCG/ML inj 1000 MCG IM (14:29)
[2024-03-17 15:00] VITALS: BP 114/59; PULSE 87; RESP 16; TEMP 37.2; O2SAT 94
--- NOTE | 2024-03-17 15:50 | PC.SOCIAL ---
Discharge planning: Pt will be discharging tomorrow afternoon to [facility]. Pt's daughter was informed that she was accepted to [facility]. vacuum worker discussed transportation with pt's daughter and it will be best for the pt to transfer via non-emergent EMS. vacuum worker informed the charge nurse on duty that the pt will need non-emergent EMS transportation tomorrow. Social work to follow-up as needed.
[2024-03-17] MEDS: LIDOCAINE 5% PATCH 1 PATCH TRANSDERMA (15:57)
--- NOTE | 2024-03-17 16:30 | PC.NURSE ---
Pt alert and oriented. Pt had complaints of pain in back and left shoulder with movement otherwise at rest no pain. Pt is up with assist of one with walker and gait belt. Pt's VSS. Pt has bruising on low back. Lidocaine patch placed on middle of low back. Pt to discharge to [facility] on 03/18/24.
[2024-03-17] MEDS: SIMVASTATIN 20 MG TABLET PO (17:26)
[2024-03-17 18:48] VITALS: BP 116/54; PULSE 79; RESP 18; TEMP 36.6; O2SAT 93
[2024-03-17] MEDS: METFORMIN ER 500 MG 2000 MG PO (20:35)
[2024-03-17] MEDS: ENOXAPARIN 40 MG/0.4 ML INJ SUBCUT (20:36)
[2024-03-17] MEDS: LOSARTAN POTASSIUM 50 MG TABLET 100 MG PO (20:36)
--- NOTE | 2024-03-17 22:49 | PC.NURSE ---
End of shift [id number]: Pt AxO, pleasant, and cooperative. Pt denies N/V/D/CP/SOB throughout the shift. Pt had complaints of pain regarding lower back and left shoulder during activity. At rest there is no pain. Ice applied. Pt Ax1 GB W. Pt was up in chair for the evening. Lidocaine patch placed on middle of low back. Pt tolerated reg diet/fluids well. Pt was incontinent with bladder and had a wet brief. Pt to discharge to [facility] on 03/18/24. Pt appears resting with lights off and call light within reach.
[2024-03-17 23:00] VITALS: RESP 16
[2024-03-18] MEDS: ACETAMINOPHEN 650 MG TABLET ER 1300 MG PO ×2 (00:43→09:00)
[2024-03-18 00:46] VITALS: BP 128/65; PULSE 74; RESP 16; TEMP 36.6; O2SAT 92
[2024-03-18 03:50] VITALS: BP 126/64; PULSE 71; RESP 14; TEMP 36.7; O2SAT 95
--- NOTE | 2024-03-18 07:25 | PC.NURSE ---
Pt is alert and oriented to self and place. Afebrile. Pt reports 0/10 pain while lying in bed but reports 8/10 pain in back and left arm with movement, pain managed with scheduled medications. Pt is up A1 with walker, voiding and tolerating a regular diet. No BM overnight. ?
[2024-03-18 09:00] VITALS: BP 137/74; PULSE 86; RESP 16; TEMP 36.7; O2SAT 94
[2024-03-18] MEDS: PSYLLIUM HUSK (WITH SUGAR) 12 GM PACKET PO (09:17)
[2024-03-18] MEDS: ESCITALOPRAM 10 MG TABLET 20 MG PO (09:17)
[2024-03-18] MEDS: predniSONE 20 MG TABLET 40 MG PO (09:17)
[2024-03-18] MEDS: SODIUM CHLORIDE 0.9 % (FLUSH) 10 ML SYRINGE 5 ML IVF (09:18)
[2024-03-18] MEDS: 0.9 % SODIUM CHLORIDE 250 ml IV (09:18)
[2024-03-18] MEDS: cefTRIAXone 1 GM in 0.9 % SODIUM CHLORIDE Mini-bag 100 ML IVPB (09:18)
[2024-03-18] MEDS: OXYCODONE 5 MG TABLET PO (10:46)
[2024-03-18 11:00] VITALS: BP 151/81; PULSE 88; RESP 20; TEMP 36.9; O2SAT 94
[2024-03-18] MEDS: INSULIN ASPART 100 UNIT/ML SUBCUT (11:55)
--- NOTE | 2024-03-18 14:38 | PC.SOCIAL ---
Discharge planning: Pt will be transferring to [facility] today in [place]. Discharge orders were faxed to Vanesa at [facility] and the pre-admission screening was completed and sent to Vanesa. [id number]. Social work to follow-up as needed.
--- NOTE | 2024-03-18 15:18 | PC.NURSE ---
Discharge: IV removed, vitals stable and WNL, pain managed with scheduled medication. Nurse to nurse given to LUCIA Gómez. Patient discharged via EMS @ 4184.
[2024-03-19 04:05] LABS: Folate, RBC 387 ng/mL (>=366)
== END 2024-03-18 14:24 | DRG 551 ==
LOC: ED 11:55 → MEDSURG 12:25
PROVIDERS: Student in an Organized Health Care Education/Training Program; Admitting Provider Family Medicine; Emergency Provider Emergency Medicine; Visit Provider Family Medicine
DX: M48.26 Kissing spine, lumbar region (principal); K29.61 Other gastritis with bleeding; S06.0XAA Concussion with loss of consciousness status unknown, initial encounter; N39.0 Urinary tract infection, site not specified; D62 Acute posthemorrhagic anemia; S46.012A Strain of muscle(s) and tendon(s) of the rotator cuff of left shoulder, initial encounter; G89.11 Acute pain due to trauma; G89.29 Other chronic pain; R19.5 Other fecal abnormalities; R41.82 Altered mental status, unspecified; S51.012A Laceration without foreign body of left elbow, initial encounter; S00.83XA Contusion of other part of head, initial encounter; B96.20 Unspecified Escherichia coli [E. coli] as the cause of diseases classified elsewhere; T39.315A Adverse effect of propionic acid derivatives, initial encounter; I10 Essential (primary) hypertension; E11.9 Type 2 diabetes mellitus without complications; W01.0XXA Fall on same level from slipping, tripping and stumbling without subsequent striking against object, initial encounter; Y92.008 Other place in unspecified non-institutional (private) residence as the place of occurrence of the external cause; M48.061 Spinal stenosis, lumbar region without neurogenic claudication; M51.36 Other intervertebral disc degeneration, lumbar region; R25.1 Tremor, unspecified; R26.89 Other abnormalities of gait and mobility; Z79.84 Long term (current) use of oral hypoglycemic drugs; F41.9 Anxiety disorder, unspecified; F32.A Depression, unspecified; E53.8 Deficiency of other specified B group vitamins; E78.5 Hyperlipidemia, unspecified
CPT/HCPCS: 36415; 70450; 70551; 72141; 72148; 73221; 80048; 81001; 81003; 82270; 82306; 82550; 82607; 82747; 82962; 83036; 83540; 83550; 83735; 84550; 85025; 85027; 85651; 86140; 87086; 87186; 87338; 87631; 93005; 97110; 97116; 97161; 97165; 97530; 97535; 99284; 99285; A9270; G0378; J0696; J1650; J1885; J2270; J2405; J2470; J2919; J3420; J7050; J7512

== ENCOUNTER 2024-03-18 14:27 | Outpatient (CLI) | payer MEDICARE, SELFPAY ==
--- OUTSIDE RECORDS SUMMARY | 2024-03-22 01:46 | XMS_ITS | Encounter Summary ---
Author Organization [employer] Address [address] [place] [address] Care Team Providers Care Facs Teacher Name Role Phone Unknown, Provider Primary Care Provider Unavaila ble Cortney Chandra MD Unavailable [phone] Cortney Chandra MD Primary Care Provider [phone] Encounter Details Date Type Department Care Team (Late st Contact Info) Description 08/30/2018 Historical Conversion [facility] Family Medicine [address] [place] [address]. [place] [address] Cortney Chandra MD [address] [place] [address] Social History Tobacco Use Types Packs/Day Years Used Date Smoking Tobacco: Never Assessed Sex and Gender Information Value Date Recorded Sex Assigned at Not on file Gender Identity Female 01/16/2023 2:23 PM CDT Sexual Orientation Not on file documented as of this encounter Last Filed Vital Signs Vital Sign Reading Time Taken Comments Blood Pressure 124/76 08/30/2018 12:00 AM SPINNING FRAME CHANGER Pulse - - Temperature - - Respiratory Rate - - Oxygen Saturation - - Inhaled Oxygen Concentration - - Weight 88.5 kg (195 lb 1.7 oz) 08/30/2018 12:00 AM SPINNING FRAME CHANGER Height 162.5 cm (5' 3.98) 08/30/2018 12:[address] Body Mass Index 33.52 08/30/2018 12:00 AM SPINNING FRAME CHANGER documented in this encounter Plan of Treatment Not on file documented as of this encounter Visit Diagnoses Not on filedocumented in this encounter Care Teams Facs Teacher Relationship Specialty Start Date End Date Unknown, Provider . HIRAM PEGUERO [id number] PCP - General 03/26/18 04/29/19 Cortney Chandra MD [address] [place] [address] PCP - General Family Medicine 04/30/19 Cortney Chandra MD [address] [place] [address] PCP Family Medicine 04/29/19 04/29/19 [facility] 03/30/23 Primary Eye Care 03/30/23 documented as of this encounter Additional Source Comments PLEASE NOTE: Replies to this message will not be received.[facility]
--- OUTSIDE RECORDS SUMMARY | 2024-03-22 01:46 | XMS_ITS | Encounter Summary ---
Author Organization [employer] Address [address] [place] [address] Care Team Providers Care Grass Cutter Name Role Phone Cortney Chandra MD Primary Care Provider [phone] Encounter Details Date Type Department Care Team (Late st Contact Info) Description 12/25/2023 Abstract [place] [id number] [place], [place] [address] Cortney Chandra MD [address] [place] [phone] Social History Tobacco Use Types Packs/Day Years Used Date Smoking Tobacco: Never Smokeless Tobacco: Never Alcohol Use Standard Drinks/Week Comments Never 0 (1 standard drink = 0.6 oz pur e alcohol) [facility] Utilities Answer Date Recorded In the past 12 months has [facility] Graffiti, gas, oil, or water [place] threatened to shut off services in your [...] How often do you attend chur or hoahaoism services? More than 4 times per year 08/15/2023 Do you belong to any clubs o r organizations such as mosque groups, unions, fraternal or athletic groups, or [...] and heating? Not hard at all 08/15/2023 [facility] - Occupational [...] place to sleep or slept in a prison (including now)? No 08/15/2023 Depression (PHQ-9) Answer [...] EXAM - EXTERNAL (12/25/2023) RETINOPATHY Negative [facility] Cortney Chandra MD NURSING COMMUNICAT ION Performing Organization Address City/State/[facility] Co de Phone Number [facility] [address] [address], documented in this encounter Visit Diagnoses Not on filedocumented in this encounter Care Teams Grass Cutter Relationship Specialty Start Date End Date Cortney Chandra MD [address] [place] [phone] PCP - General Family Medicine 04/30/19 [facility] 03/30/23 Primary Eye Care 03/30/23 documented as of this encounter Additional Source Comments PLEASE NOTE: Replies to this message will not be received.[facility] and [facility]
--- OUTSIDE RECORDS SUMMARY | 2024-03-22 01:46 | XMS_ITS | Encounter Summary ---
Author Organization [employer] Address [address] [place] [address] Care Team Providers Care Hose Seamer Name Role Phone Unknown, Provider Primary Care Provider Unavaila Cortney Gomez MD Unavailable [phone] Cortney Chandra MD Primary Care Provider [phone] Encounter Details Date Type Department Care Team (Late st Contact Info) Description 03/26/2018 Historical Conversion [facility] Family Medicine [address] [place] [address]. [place] [address] Angeles Hartman, CHALINO,HOSPITAL CODER [address] [place] [address] Social History Tobacco Use Types Packs/Day Years Used Date Smoking Tobacco: Never Assessed Sex and Gender Information Value Date Recorded Sex Assigned at Not on file Gender Identity Female 01/16/2023 2:23 PM CDT Sexual Orientation Not on file documented as of this encounter Progress Notes * Angeles Hartman, CHALINO,HOSPITAL CODER - 03/26/2018 12:00 AM CDT Assessment 1. [...] or if you almost fall.; Status:Complete; Done: 36Aud5275 At your visit today we screened for [...] or seek medical attention immediately.; Status:Complete; Done: 91Glq9054 Dystrophic nail, Onychomycosis Fungus Culture (Skin.Hair,Nails ONLY); Status:Active; Requested for:83Vla2862; culture skin source : left thumb nail SocHx: Never smoked Never Smoked: Since tobacco use can have significant health risks, you are helping yourself and others stay healthy by never smoking.; Status:Complete; Done: 69Zij4779 Reason For Visit Discoloration of finger nails [...] Aspirin 81 MG TABS; ONE DAILY; Last Rx:97Rqf0312 Ordered 2. Cheratussin AC 100-10 MG/5ML Oral Syrup; TAKE 10 ML EVERY 4 TO 6 HOURS NEEDED; Therapy: 05Oct2012 to (Evaluate:79Nff2317); Last Rx:49Jhm6071 Ordered 3. Cyclobenzaprine HCl - 10 MG Oral Tablet; TAKE 1/2 TO 1 TABLET THREE TIMES DAILY; Therapy: 30Sep2010 to (Evaluate:63Hpc4224) Requested for: 07Jul2016; Last Rx:07Jul2016 Ordered 4. Fluticasone Propionate 50 MCG/ACT Nasal Suspension; INSTILL 1 SPRAY DAILY IN EACH NOSTRIL; Therapy: 17Apr2009 to (Evaluate:14Apr2018) Requested for: 16Oct2017; Last Rx:16Oct2017 Ordered 5. Hydrocortisone 2.5 % External Cream; APPLY SPARINGLY TO AFFECTED AREA(S) TWICE DAILY; Therapy: 20Jul2015 to (Evaluate:74Opa2168) Requested for: 17Jul2017; Last Rx:17Jul2017 Ordered 6. Loratadine 10 MG Oral Tablet; TAKE 1 TABLET BY MOUTH DAILY NEEDED; Therapy: 65Vbf6046 to (Evaluate:12Sep2018) Requested for: 17Sep2017; Last Rx:17Sep2017 Ordered 7. Losartan Potassium 100 MG Oral Tablet; TAKE 1 TABLET BY MOUTH ONCE DAILY; Therapy: 98Tln2449 to (Evaluate:12Jul2018) Requested for: 17Jul2017; Last Rx:17Jul2017 Ordered 8. MetFORMIN HCl ER 500 MG Oral Tablet Extended Release 24 Hour; TAKE 4 TABLETS( 2000MG) BY MOUTH ONCE DAILY; Therapy: 27Amc9361 to (Evaluate:12Jul2018) Requested for: 17Jul2017; Last Rx:17Jul2017 Ordered 9. One-Daily Multi Vitamins Oral Tablet; TAKE 1 TABLET DAILY; Therapy: (Recorded:23Jul2012) to Recorded 10. Simvastatin 20 MG Oral Tablet; TAKE ONE TABLET BY MOUTH DAILY; Therapy: 05Cqa0122 to (Evaluate:12Jul2018) Requested for: 17Jul2017; Last Rx:17Jul2017 Ordered 11. Ventolin HFA 108 (90 Base) MCG/ACT Inhalation Aerosol Solution; INHALE 1 TO 2 PUFFS EVERY 4 TO 6 HOURS NEEDED; Therapy: 06Mar2017 to (Last Rx:06Mar2017) Requested for: 06Mar2017 Ordered 12. Vitamin D3 1000 UNIT Oral Tablet; takes 2 tablets daily; Therapy: (Recorded:40Nkp9078) to Recorded Allergies 1. Ultram TABS Vitals [...] other 8 fingers are covered with nail lithuanian but the 2 thumbs show blackdiscoloration under [...] Electronically signed by : Angeles Hartman RN HOSPITAL CODER RN,HOSPITAL CODER; Mar 26 2018 1:29PM RADIATION CONTROL TECHNICIAN documented in this encounter Plan of Treatment Not on file documented as of this encounter Visit Diagnoses Not on filedocumented in this encounter Care Teams Hose Seamer Relationship Specialty Start Date End Date Unknown, Provider . HIRAM PEGUERO [id number] PCP - General 03/26/18 04/29/19 Cortney Chandra MD [address] [place] [phone] PCP - General Family Medicine 04/30/19 Cortney Chandra MD [address] [place] [phone] PCP Family Medicine 04/29/19 04/29/19 [facility] 03/30/23 Primary Eye Care 03/30/23 documented as of this encounter Additional Source Comments PLEASE NOTE: Replies to this message will not be received.[facility] and [facility]
--- OUTSIDE RECORDS SUMMARY | 2024-03-22 01:46 | XMS_ITS | Encounter Summary ---
Author Organization [employer] Address [address] [place] [address] Care Team Providers Care Thoracic Surgeon Name Role Phone Cortney Chandra MD Primary Care Provider [phone]- [phone] Reason for Visit * Reason Comments Refill Request Encounter Details Date Type Department Care Team (Late st Contact Info) Description 03/01/[address] [facility] Medicine [address] [place], [place] [id number] Cortney Chandra MD [address] [place] [address] Dx: Essential hypertension (Primary Dx) Social History Tobacco Use Types Packs/Day Years Used Date Smoking Tobacco: Never Smokeless Tobacco: Never Alcohol Use Standard Drinks/Week Comments Never 0 (1 standard drink = 0.6 oz pur e alcohol) [facility] Utilities Answer Date Recorded In the past 12 months has [facility] Somewhere, gas, oil, or water [employer] threatened to shut off services in your [...] How often do you attend chur or judaism services? More than 4 times per year 08/15/2023 Do you belong to any clubs o r organizations such as mandaeism groups, unions, fraternal or athletic groups, or [...] and heating? Not hard at all 08/15/2023 [facility] of Occupat ional Health - Occupational Stress [...] place to sleep or slept in a jail (including now)? No 08/15/2023 Depression (PHQ-9) Answer [...] hypertension documented in this encounter Care Teams Thoracic Surgeon Relationship Specialty Start Date End Date Cortney Chandra MD [address] [place] [address] PCP - General Family Medicine 04/30/19 [facility] 03/30/23 Primary Eye Care 03/30/23 documented as of this encounter Additional Source Comments PLEASE NOTE: Replies to this message will not be received.[facility] and [facility]
--- OUTSIDE RECORDS SUMMARY | 2024-03-22 01:46 | XMS_ITS | Encounter Summary ---
Author Organization [employer] Address [address] [place] [address] Care Team Providers Care Explosives Detonator Name Role Phone Unknown, Provider Primary Care Provider UnavailCortney Dye MD Unavailable [phone] Cortney Chandra MD Primary Care Provider [phone]- [phone] Encounter Details Date Type Department Care Team (Late st Contact Info) Description 06/14/2018 Historical Conversion [facility] Family Medicine [address] [address] Rosemary Aquino, PRINCIPAL ADMINISTRATIVE CLERK,SALES REPRESENTATIVE TRAINEE [address] [place] [address] Social History Tobacco Use Types Packs/Day Years Used Date Smoking Tobacco: Never Assessed Sex and Gender Information Value Date Recorded Sex Assigned at Not on file Gender Identity Female 01/16/2023 2:23 PM CDT Sexual Orientation Not on file documented as of this encounter Last Filed Vital Signs Vital Sign Reading Time Taken Comments Blood Pressure 144/88 06/14/2018 12:00 AM VICE PRESIDENT COMPLIANCE Pulse - - Temperature - - Respiratory Rate - - Oxygen Saturation - - Inhaled Oxygen Concentration - - Weight 87 kg (191 lb 12.8 oz) 06/14/2018 12:00 A M VICE PRESIDENT COMPLIANCE Height - - Body Mass Index 32.75 09/25/2017 12:00 AM CDT documented in this encounter Plan of Treatment Not on file documented as of this encounter Visit Diagnoses Not on filedocumented in this encounter Care Teams Explosives Detonator Relationship Specialty Start Date End Date Unknown, Provider . [place] [address] PCP - General 03/26/18 04/29/19 Cortney Chandra MD [address] [place] [phone] PCP - General Family Medicine 04/30/19 Cortney Chandra MD [address] [place] [phone] PCP Family Medicine 04/29/19 04/29/19 [facility] 03/30/23 Primary Eye Care 03/30/23 documented as of this encounter Additional Source Comments PLEASE NOTE: Replies to this message will not be received.[facility] and [facility]
--- OUTSIDE RECORDS SUMMARY | 2024-03-22 01:46 | XMS_ITS | Referral Summary ---
Author Organization [employer] Address [address] [place] [address] Care Team Providers Care Sales Solutions Associate Name Role Phone Cortney Espinosa MD Primary Care Provider [phone] Encounters Date Type Department Care Team Description 03/08/2024 Patient Message [address] [place] [address] Cortney Espinosa MD Dx: Other hyperlipidemia 03/01/2024 Refill [place] [address] [address] [address] Cortney Espinosa MD Dx: Essential hypertension (Primary Dx) 02/19/2024 Refill [address] [place] [address] Cortney Espinosa MD Dx: Type 2 diabetes mellitus with stage 1 chronic kidney disease, without long-term current use of insulin (HCC) (Primary Dx) 01/12/2024 Refill [address] [place] [address] Cortney Espinosa MD Dx: Type 2 diabetes mellitus with stage 1 chronic kidney disease, without long-term current use of insulin (HCC) 01/05/2024 Refill [address] [place] [address] Cortney Espinosa MD Dx: Rash (Primary Dx) 12/25/2023 Abstract [facility] [address] [place] [address] Cortney Espinosa MD from Last 3 Months Allergies Active Allergy Reactions Criticality Noted Date Comments Tramadol Nausea and / or Vomiting Low 04/29/2019 Medications Medication Sig Dispensed Refills Start Date End Date Status albuterol HFA (AKA: PROVENTIL/VENTOLIN ) 90 mcg/actuation inhalation HFA Aerosol Inhaler 1-2 Puffs by inhalation route every 4 hours if needed for shortness of breath. Active W-S-E-zinc-sod selenate-copper (AKA: OCUVITE, PROSIGHT) 5,000-60-30 eveu-lj-lhbe oral Tablet Take 1 Tablet by mouth [...] Active fluticasone propionate (FLONASE) 50 mcg/actuation nasal [place], SuspensionIndicati ons:Allergic rhinitis due to pollen, unspecified [...] 90 Tablet 2 3 03/01/20 24 Discontinued Active Problems Problem Noted Date Diagnosed Date [...] drink = 0.6 oz pur e alcohol) [facility] Utilities Answer Date Recorded In the past 12 months has th e electric, gas, oil, or water company [...] week 08/15/2023 How often do you attend [facility] or oriental orthodox services? More than 4 times per year 08/15/2023 Do you belong to any clubs o r organizations such as advent groups, unions, fraternal or athletic groups, or [...] and heating? Not hard at all 08/15/2023 [facility] [place] of Occupat ional Health - Occupational Stress [...] place to sleep or slept in a [place] [facility] [place] facility (including now)? No 08/15/2023 Depression (PHQ-9) Answer [...] Comments Blood Pressure 139/81 08/21/2023 9:47 AM MONORAIL HOOKER Pulse 77 08/21/2023 9:47 AM MONORAIL HOOKER Temperature 36.9 ??C (98.5 ??F) 08/21/2023 9:47 AM CS T Respiratory Rate 18 08/21/2023 9:47 AM MONORAIL HOOKER Oxygen Saturation 96% 08/21/2023 9:47 AM MONORAIL HOOKER Inhaled Oxygen Concentration - - Weight 73 kg (161 lb) 08/21/2023 9:47 AM MONORAIL HOOKER Height 161.1 cm (5' 3.43) 03/30/2023 10:53 [...] GLYCOSYLATED HEMOGLOBIN, A1C Routine 09/10/2023 9:59 AM MONORAIL HOOKER Type 2 diabetes mellitus with stage 1 [...] EYE EXAM - EXTERNAL (12/25/2023) RETINOPATHY Negative [facility] Cortney Espinosa MD NURSING COMMUNICAT ION Performing Organization Address City/State/[facility] [place] [address], * GLYCOSYLATED HEMOGLOBIN, A1C (09/10/2023 9:59 AM MONORAIL HOOKER) Hemoglobin A1c 6.3 <=6.4 % 09/10/2023 10:27 AM MONORAIL HOOKER [facility] Estimated Average Glucose 134 mg/dL 09/10/2023 10:27 AM [facility] Blood VENOUS BLOOD / Unknown Venipuncture / Unknown 09/10/2023 9:59 AM MONORAIL HOOKER 09/10/2023 9:59 AM MONORAIL HOOKER Cortney Espinosa MD LAB CHEMISTRY ORDE RABLES [facility] [address] [place] [address], [place] [phone] * MICROALBUMIN, RANDOM, URINE (03/30/2023 11:28 AM CDT) Microalbumin, Urine <12.0 mg/L 03/30/2023 1:46 PM CDT [facility] Creatinine, Urine 71.1 mg/dL 03/30/2023 1:46 PM CDT [facility] Microalbumin/Cr eatinine Ratio 03/30/2023 1:46 PM CDT [facility] Comment: Unable to calculate ratio due to decreased Microalbumin. Normal: <30 Microalbuminuria: 30-299 Clinical Microalbuminuria: >300 Urine SPOT URINE SPECIMEN / Unknown Non-blood Collection / Unknown 03/30/2023 11:28 AM CDT 03/30/2023 11:28 AM CDT Cortney Espinosa MD LAB URINE ORDERABL ES Performing Organization Address City/[facility]/ZIP Co de Phone Number [facility] [address] [place] [address], [place] [phone] * (ABNORMAL) LIPID PANEL (03/30/2023 11:28 AM CDT) Cholesterol 138 0 - 200 mg/dL 03/30/2023 1:39 PM CDT [facility] Triglycerides 86 0 - 150 mg/dL 03/30/2023 1:39 PM CDT [facility] Cholesterol, LDL (Calculated) 69 <=100 mg/dL 03/30/2023 1:39 PM CDT [facility] Cholesterol, HDL 52(L) 60 - 150 mg/dL 03/30/2023 1:39 PM CDT [facility] Cholesterol, vLDL 17 0 - 130 mg/dL 03/30/2023 1:39 PM CDT [facility] Fasting Status Yes 03/30/2023 1:39 PM CDT [facility] Blood VENOUS BLOOD / Unknown Venipuncture / Unknown 03/30/2023 11:28 AM CDT 03/30/2023 11:28 AM CDT Cortney Espinosa MD LAB CHEMISTRY ZACH GALAN [facility] Organization Address City/State/ZIP Co de Phone Number [facility] [address] [place] [address], * DEXA HIP AND SPINE (02/26/2021 10:38 [...] specific patient circumstances. Procedure Note Chetna Mann, [place] - 02/26/2021 XR DEXA HIP AND SPINE [...] has decreased when compared to the previous 2010 study. 2. All patients should receive an [...] PM CDT) 03/01/2020 12:0 1 PM CDT [facility] - 03/01/2020 1:05 PM CDT Patient Name: SUMAYA GALVAN Procedure Date: 03/01/2020 Date of : 1950 Attending MD: BILLY ESPINOSA MD Referring MD CORTNEY ESPINOSA Additional Staff Jade ??Min, Cephalometric Tracer; Malini ??LUCIA Quiros Patient Profile - ??Refer [...] without bleeding Diagnosis Code(s)CPT(R) - 2019 copyright [employer]. All Rights Reserved. Diagnosis Code(s)The CPT codes, CCI edits and ICD codes generated are intended as suggestions and were generated based on input data. ??These codes are preliminary and upon gluer machine operator review may be revised to meet current compliance and payer requirements. ??The provider is responsible for the final determination of appropriate codes, and modifiers. Scope Withdrawal Time 00:12:06 Signature Name: Billy Espinosa Signature Statement:This document has been electronically signed. Note Initiated On:03/01/2020 Signature Date:03/01/2020 1:05 PM Cortney Espinosa MD GI PROCEDURES [facility] [address] [place] [address], from Last 3 Months or Most Recently Relevant to Health Maintenance Advance Directives Documents on File Type Date Recorded Patient Poultry Hatchery Supervisor Expl anation Physician Orders for Life-Sustaining Treatment (POLST) 05/18/2023 2:28 PM POLST POLST-S 04/03/2023 2:26 PM Advanced Directives 06/06/2020 1:42 PM CRS [facility] Directive-S 02/17/2005 1:42 PM Care Teams Sales Solutions Associate Relationship Specialty Start Date End Date Cortney Espinosa MD [address] [place] [address] PCP - General Family Medicine 04/30/19 [facility] 03/30/23 Primary Eye Care 03/30/23 Additional Source Comments PLEASE NOTE: Replies to this message will not be received.[facility] and [facility]
--- OUTSIDE RECORDS SUMMARY | 2024-03-22 01:46 | XMS_ITS | Clinical Summary ---
Author Organization [employer] Address [address] [place] [address] Care Team Providers Care Flue Cleaner Name Role Phone Cortney Espinosa MD Primary Care Provider +1- [phone] Allergies Active Allergy Reactions Criticality Noted Date Comments Tramadol Nausea and / or Vomiting Low 04/29/2019 Medications Medication Sig Dispensed Refills Start Date End Date Status albuterol HFA (AKA: PROVENTIL/VENTOLIN ) 90 mcg/actuation inhalation HFA Aerosol Inhaler 1-2 Puffs by inhalation route every 4 hours if needed for shortness of breath. Active L-K-V-zinc-sod selenate-copper (AKA: OCUVITE, PROSIGHT) 5,000-60-30 evmw-so-teuw oral Tablet Take 1 Tablet by mouth [...] Active fluticasone propionate (FLONASE) 50 mcg/actuation nasal [place], SuspensionIndicati ons:Allergic rhinitis due to pollen, unspecified [...] Department Care Team Description 03/08/2024 Patient Message [place] [phone] [place] [address] Cortney Espinosa MD Dx: Other hyperlipidemia 03/01/2024 Refill [place] [address] [place] [address] Cortney Espinosa MD Dx: Essential hypertension (Primary Dx) 02/19/2024 Refill [place] [address] [place] [place] [address] Cortney Espinosa MD Dx: Type 2 diabetes mellitus with stage 1 chronic kidney disease, without long-term current use of insulin (HCC) (Primary Dx) 01/12/2024 Refill [place] [address] [place] [place] [address] Cortney Espinosa MD Dx: Type 2 diabetes mellitus with stage 1 chronic kidney disease, without long-term current use of insulin (HCC) 01/05/2024 Refill [place] [address] [place] [place] [address] Cortney Espinosa MD Dx: Rash (Primary Dx) 12/25/2023 Abstract [place] [phone] [place] [place] [address] Cortney Espinosa MD from Last 3 Months [...] Relation Name Comments No Known Problems Daughter Anca Hypertension Father Jah Other Father Jah tracheitis,acut [...] Shelbi Mother Yennifer (Age 74) Paternal Grandfather Tiffanie Paternal Grandmother Yamilet Sister Anyi (Age 72) Son Tre Alive Social History Tobacco Use Types Packs/Day Years Used Date Smoking Tobacco: Never Smokeless Tobacco: Never Tobacco Cessation:Counseling Given: No Alcohol Use Standard Drinks/Week Comments Never 0 (1 standard drink = 0.6 oz pur e alcohol) [facility] Utilities Answer Date Recorded In the past 12 months has e [employer], gas, oil, or water [employer] threatened to shut off services in your [...] often do you attend chur ch or adventist services? More than 4 times per year 08/15/2023 Do you belong to any clubs o r organizations such as congregational groups, unions, fraternal or athletic groups, or [...] and heating? Not hard at all 08/15/2023 [facility] [place] of Occupat ional Health - Occupational Stress [...] place to sleep or slept in a care home (including now)? No 08/15/2023 Depression (PHQ-9) [...] Comments Blood Pressure 139/81 08/21/2023 9:47 AM QA TEST LEAD Pulse 77 08/21/2023 9:47 AM QA TEST LEAD Temperature 36.9 ??C (98.5 ??F) 08/21/2023 9:47 AM CS T Respiratory Rate 18 08/21/2023 9:47 AM QA TEST LEAD Oxygen Saturation 96% 08/21/2023 9:47 AM QA TEST LEAD Inhaled Oxygen Concentration - - Weight 73 kg (161 lb) 08/21/2023 9:47 AM QA TEST LEAD Height 161.1 cm (5' 3.43) 03/30/2023 10:53 AM C DT Body Mass Index 28.14 03/30/2023 10:53 AM CDT Plan of Treatment Health Maintenance Due Date Last Done Comments Respiratory Syncytial Virus (RSV) Vaccine (1 - 1-dose 60+ series) 2008 COVID-19 Vaccine ( - 2022- season) 2024 04/27/2023, 04/03/2022, 11/01/2021, Additional history [...] GLYCOSYLATED HEMOGLOBIN, A1C Routine 09/10/2023 9:59 AM QA TEST LEAD Type 2 diabetes mellitus with stage 1 [...] EXAM - EXTERNAL (12/25/2023) RETINOPATHY Negative [facility] Cortney Espinosa MD [place] [address], * GLYCOSYLATED HEMOGLOBIN, A1C (09/10/2023 9:59 AM QA TEST LEAD) Hemoglobin A1c 6.3 <=6.4 % 09/10/2023 10:27 AM QA TEST LEAD [facility] Estimated Average Glucose 134 mg/dL 09/10/2023 10:[address] [facility] Blood VENOUS BLOOD / Unknown Venipuncture / Unknown 09/10/2023 9:59 AM QA TEST LEAD 09/10/2023 9:59 AM QA TEST LEAD Cortney Espinosa MD LAB CHEMISTRY ORDE RABLES Performing Organization Address [facility]/ZIP Co de Phone Number [address] [place] [address], [place] [phone] * MICROALBUMIN, RANDOM, URINE (03/30/2023 11:28 AM CDT) Microalbumin, Urine <12.0 mg/L 03/30/2023 1:46 PM CDT [facility] Creatinine, Urine 71.1 mg/dL 03/30/2023 1:46 PM CDT [facility] Microalbumin/Cr eatinine Ratio 03/30/2023 1:46 PM CDT [facility] Comment: Unable to calculate ratio due to decreased Microalbumin. Normal: <30 Microalbuminuria: 30-299 Clinical Microalbuminuria: >300 Urine SPOT URINE SPECIMEN / Unknown Non-blood Collection / Unknown 03/30/2023 11:28 AM CDT 03/30/2023 11:28 AM CDT Cortney Espinosa MD LAB URINE ORDERABL ES Performing Organization Address City/[facility]/ZIP Co de Phone Number [facility] [address] [place] [address], [place] [phone] * (ABNORMAL) LIPID PANEL (03/30/2023 11:28 AM CDT) Cholesterol 138 0 - 200 mg/dL 03/30/2023 1:39 PM CDT [facility] Triglycerides 86 0 - 150 mg/dL 03/30/2023 1:39 PM CDT [facility] Cholesterol, LDL (Calculated) 69 <=100 mg/dL 03/30/2023 1:39 PM CDT [facility] Cholesterol, HDL 52(L) 60 - 150 mg/dL 03/30/2023 1:39 PM CDT [facility] Cholesterol, vLDL 17 0 - 130 mg/dL 03/30/2023 1:39 PM CDT [facility] Fasting Status Yes 03/30/2023 1:39 PM CDT [facility] Blood VENOUS BLOOD / Unknown Venipuncture / Unknown 03/30/2023 11:28 AM CDT 03/30/2023 11:28 AM CDT Cortney Espinosa MD LAB CHEMISTRY ZACH GALAN [facility] Organization Address City/State/ZIP Co de Phone Number [facility] [address] [place] [address], * DEXA HIP AND SPINE (02/26/2021 10:38 [...] PM CDT) 03/01/2020 12:0 1 PM CDT [facility] - 03/01/2020 1:05 PM CDT Patient Name: SUMAYA GALVAN Procedure Date: 03/01/2020 Date of : 1950 Attending MD: BILLY ESPINOSA MD Referring MD CORTNEY ESPINOSA Additional Staff Jade ??Min, Research And Development Manager; Malini ??LUCIA Quiros Patient Profile - ??Refer [...] without bleeding Diagnosis Code(s)CPT(R) - 2019 copyright [employer]. All Rights Reserved. Diagnosis Code(s)The CPT codes, CCI edits and ICD codes generated are intended as suggestions and were generated based on input data. ??These codes are preliminary and upon hcc coders review may be revised to meet current compliance and payer requirements. ??The provider is responsible for the final determination of appropriate codes, and modifiers. Scope Withdrawal Time 00:12:06 Signature Name: Billy Prateek Signature Statement:This document has been electronically signed. Note Initiated On:03/01/2020 Signature Date:03/01/2020 1:05 PM Cortney Espinosa MD GI PROCEDURES [facility] [address] [place], [place] [address] [place] [address] from Last 3 Months or Most Recently Relevant to Health Maintenance Advance Directives Documents on File Type Date Recorded Patient Commissary Officer Expl anation Physician Orders for Life-Sustaining Treatment (POLST) 05/18/2023 2:28 PM POLST POLST-S 04/03/2023 2:26 PM Advanced Directives 06/06/2020 1:42 PM CRS [facility] Health Care Directive-S 02/17/2005 1:42 PM Care Teams Flue Cleaner Relationship Specialty Start Date End Date Cortney Espinosa MD [address] [place] [address] PCP - General Family Medicine 04/30/19 [facility] 03/30/23 Primary Eye Care 03/30/23 Additional Source Comments PLEASE NOTE: Replies to this message will not be received.[facility] and [facility]
--- OUTSIDE RECORDS SUMMARY | 2024-03-22 01:46 | XMS_ITS | Encounter Summary ---
Author Organization [employer] Address [address] [place] [address] Care Team Providers Care Patternmaker Metal Name Role Phone Cortney Chandra MD Primary Care Provider +1- [phone] Reason for Visit * Reason Comments Refill Request Encounter Details Date Type Department Care Team (Late st Contact Info) Description 01/12/2024 Refill [facility] Medicine [address] [place], [place] [address] Cortney Chandra MD [address] [place] [address] Dx: Type 2 diabetes mellitus with stage 1 chronic kidney disease, without long-term current use of insulin (HCC) Social History Tobacco Use Types Packs/Day Years Used Date Smoking Tobacco: Never Smokeless Tobacco: Never Alcohol Use Standard Drinks/Week Comments Never 0 (1 standard drink = 0.6 oz pur e alcohol) [facility] Utilities Answer Date Recorded In the past 12 months has e [employer], gas, oil, or water [employer] threatened to shut off services in your [...] How often do you attend chur or yarsani services? More than 4 times per year 08/15/2023 Do you belong to any clubs o r organizations such as caodaism groups, unions, fraMaestro Healthcare Technology or athletic groups, or school groups? No [...] and heating? Not hard at all 08/15/2023 [facility] of Occupat ional Health - Occupational [...] place to sleep or slept in a mcc (including now)? No 08/15/2023 Depression (PHQ-9) Answer [...] specified documented in this encounter Care Teams Patternmaker Metal Relationship Specialty Start Date End Date Cortney Chandra MD [address] [place] [address] PCP - General Family Medicine 04/30/19 [facility] 03/30/23 Primary Eye Care 03/30/23 documented as of this encounter Additional Source Comments PLEASE NOTE: Replies to this message will not be received.[facility] and [facility]
--- OUTSIDE RECORDS SUMMARY | 2024-03-22 01:46 | XMS_ITS | Encounter Summary ---
Author Organization [employer] Address [address] [place] [address] Care Team Providers Care Wall Covering Installer Name Role Phone Unknown, Provider Primary Care Provider Unavaila ble Cortney Chandra MD Unavailable [phone] Cortney Chandra MD Primary Care Provider [phone]- [phone] Encounter Details Date Type Department Care Team (Late st Contact Info) Description 08/30/2018 Historical Conversion [facility] Family Medicine [address] [place] [address] [place] [address] Cortney Chandra MD [address] [place] [address] Social History Tobacco Use Types [...] Plan Orders Fatigue Drawing Fee; Status:Complete; Done: 70Giu3206 Reason For Visit Pt. presents today for [...] Aspirin 81 MG TABS; ONE DAILY; Last Rx:66Elk9955 Ordered 2. Cyclobenzaprine HCl - 10 MG Oral Tablet; TAKE 1/2 TO 1 TABLET THREE TIMES DAILY; Therapy: 30Sep2010 to (Evaluate:73Jlv9773) Requested for: 07Jul2016; Last Rx:07Jul2016 Ordered 3. Fluticasone Propionate 50 MCG/ACT Nasal Suspension; INSTILL 1 SPRAY DAILY IN EACH NOSTRIL; Therapy: 17Apr2009 to (Evaluate:14Apr2018) Requested for: 16Oct2017; Last Rx:16Oct2017 Ordered 4. Hydrocortisone 2.5 % External Cream; APPLY SPARINGLY TO AFFECTED AREA(S) TWICE DAILY; Therapy: 20Jul2015 to (Evaluate:60Oej8387) Requested for: 17Jul2017; Last Rx:17Jul2017 Ordered 5. Loratadine 10 MG Oral Tablet; TAKE 1 TABLET BY MOUTH DAILY NEEDED; Therapy: 24Xha9729 to (Evaluate:12Sep2018) Requested for: 17Sep2017; Last Rx:17Sep2017 Ordered 6. Losartan Potassium 100 MG Oral Tablet; TAKE 1 TABLET BY MOUTH ONCE DAILY; Therapy: 74Wri2788 to (Evaluate:10Jul2019) Requested for: 15Jul2018; Last Rx:15Jul2018 Ordered 7. metFORMIN HCl ER 500 MG Oral Tablet Extended Release 24 Hour; TAKE 4 TABLETS( 2000MG) BY MOUTH ONCE DAILY; Therapy: 84Hhf9216 to (Evaluate:18Jul2019) Requested for: 23Jul2018; Last Rx:23Jul2018 Ordered 8. One-Daily Multi Vitamins Oral Tablet; TAKE 1 TABLET DAILY; Therapy: (Recorded:23Jul2012) to Recorded 9. Pyridium 100 MG Oral Tablet; TAKE 1 TABLET 3 TIMES DAILY AFTER MEALS NEEDED; Therapy: 41Oeq1507 to (Last Rx:22Ynj7841) Requested for: 14Jun2018 Ordered 10. Simvastatin 20 MG Oral Tablet; TAKE ONE TABLET BY MOUTH DAILY; Therapy: 67Kau8951 to (Evaluate:10Jul2019) Requested for: 15Jul2018; Last Rx:15Jul2018 Ordered 11. Ventolin HFA 108 (90 Base) MCG/ACT Inhalation Aerosol Solution; INHALE 1 TO 2 PUFFS EVERY 4 TO 6 HOURS NEEDED; Therapy: 06Mar2017 to (Last Rx:98Nll0582) Requested for: 43Goa7285 Ordered 12. Vitamin D3 1000 UNIT Oral Tablet; takes 2 tablets daily; Therapy: (Recorded:50Dgt2998) to Recorded Allergies 1. Ultram TABS Vitals [...] Cortney Chandra M.D.; Sep 12 2018 4:16PM BUSINESS SERVICES ANALYST documented in this encounter Plan of Treatment Not on file documented as of this encounter Visit Diagnoses Not on filedocumented in this encounter Care Teams Wall Covering Installer Relationship Specialty Start Date End Date Unknown, Provider . [facility] [place] [address] PCP - General 03/26/18 04/29/19 Cortney Chandra MD [address] [place] [address] PCP - General Family Medicine 04/30/19 Cortney Chandra MD [address] [place] [address] PCP Family Medicine 04/29/19 04/29/19 [facility] 03/30/23 Primary Eye Care 03/30/23 documented as of this encounter Additional Source Comments PLEASE NOTE: Replies to this message will not be received.[facility] and [facility]
--- OUTSIDE RECORDS SUMMARY | 2024-03-22 01:46 | XMS_ITS | Encounter Summary ---
Author Organization [employer] Address [address] [place] [address] Care Team Providers Care Wrapper Off Name Role Phone Cortney Chandra MD Primary Care Provider [phone]- [phone] Encounter Details Date Type Department Care Team (Latest Contact Info) Description 03/08/2024 Patient Message [facility] [address] [place], [place] [id number] Cortney Chandra MD [address] [place] [address] Dx: Other hyperlipidemia Social History Tobacco Use Types Packs/Day Years Used Date Smoking Tobacco: Never Smokeless Tobacco: Never Alcohol Use Standard Drinks/Week Comments Never 0 (1 standard drink = 0.6 oz pur e alcohol) [facility] Utilities Answer Date Recorded In the past 12 months has [facility] [employer], [facility], oil, or water [employer] threatened to shut off services in your [...] How often do you attend chur or jehovah's witness services? More than 4 times per year 08/15/2023 Do you belong to any clubs o r organizations such as jehovah's witness groups, unions, fraternal or athletic groups, or [...] heating? Not hard at all 08/15/2023 [facility] - Occupational [...] pollen documented in this encounter Care Teams Wrapper Off Relationship Specialty Start Date End Date Cortney Chandra MD [address] [place] [address] PCP - General Family Medicine 04/30/19 [facility] 03/30/23 Primary Eye Care 03/30/23 documented as of this encounter Additional Source Comments PLEASE NOTE: Replies to this message will not be received.[facility] and [facility]
--- OUTSIDE RECORDS SUMMARY | 2024-03-22 01:46 | XMS_ITS | Encounter Summary ---
Author Organization [employer] Address [address] [place] [address] Care Team Providers Care Automatic Serging Machine Operator Name Role Phone Unknown, Provider Primary Care Provider Unavaila ble Cortney Chandra MD Unavailable [phone] Cortney Chandra MD Primary Care Provider [phone]- [phone] Encounter Details Date Type Department Care Team (Late st Contact Info) Description 09/28/2018 Historical Conversion [facility] Family Medicine [address] [place] [address]. [place] [address] Cortney Chandra MD [address] [place] [address] Social History Tobacco Use Types [...] TABLET THREE TIMES DAILY; Therapy: 30Sep2010 to (Evaluate:31Bih1633) Requested for: 07Jul2016; Last Rx:07Jul2016 Ordered 3. Fluticasone Propionate 50 MCG/ACT Nasal Suspension; INSTILL 1 SPRAY DAILY IN EACH NOSTRIL; Therapy: 17Apr2009 to (Evaluate:14Apr2018) Requested for: 01Vaq4842; Last Rx:16Oct2017 Ordered 4. Hydrocortisone 2.5 % External Cream; APPLY SPARINGLY TO AFFECTED AREA(S) TWICE DAILY; Therapy: 20Jul2015 to (Evaluate:14Wxd7174) Requested for: 10Sep2018; Last Rx:10Sep2018 Ordered 5. Loratadine 10 MG Oral Tablet; TAKE 1 TABLET BY MOUTH DAILY NEEDED; Therapy: 66Ufc5586 to (Last Rx:10Sep2018) Requested for: 10Sep2018 Ordered 6. Losartan Potassium 100 MG Oral Tablet; TAKE 1 TABLET BY MOUTH ONCE DAILY; Therapy: 72Qfm3630 to (Evaluate:10Jul2019) Requested for: 15Jul2018; Last Rx:15Jul2018 Ordered 7. metFORMIN HCl ER 500 MG Oral Tablet Extended Release 24 Hour; TAKE 4 TABLETS( 2000MG) BY MOUTH ONCE DAILY; Therapy: 69Ple7910 to (Evaluate:18Jul2019) Requested for: 23Jul2018; Last Rx:23Jul2018 Ordered 8. Pyridium 100 MG Oral Tablet; TAKE 1 TABLET 3 TIMES DAILY AFTER MEALS NEEDED; Therapy: 34Ehe2646 to (Last Rx:70Rbd3120) Requested for: 24Fhg6664 Ordered 9. Simvastatin 20 MG Oral Tablet; TAKE ONE TABLET BY MOUTH DAILY; Therapy: 49Gyo8114 to (Evaluate:10Jul2019) Requested for: 15Jul2018; Last Rx:15Jul2018 Ordered 10. Ventolin HFA 108 (90 Base) MCG/ACT Inhalation Aerosol Solution; INHALE 1 TO 2 PUFFS EVERY 4 TO 6 HOURS NEEDED; Therapy: 19Diq4123 to (Last Rx:35Tog9433) Requested for: 13Ekj9832 Ordered 11. Vision Vitamins Oral Tablet; TAKE 1 TABLET DAILY; Therapy: 28Sep2018 to Recorded 12. Vitamin D3 1000 UNIT Oral Tablet; takes 2 tablets daily; Therapy: (Recorded:79Stj9669) to Recorded Allergies 1. Ultram TABS Vitals [...] External ears and nose are normal to inspection.\R\o6Lqgapiwt membranes clear bilaterally.\R\b0Lips, teeth, and gum are normal, good dentition.\R\c4Fmtilkbbxo is normal with no erythema, edema, exudate or lesions. Neck Neck is supple and symmetric. The trachea is midline with no masses.\R\r3Uxaulw thyroid with no thyromegaly. Pulmonary Lungs are clear to auscultation. Cardiovascular Normal rate and rhythm, normal S1 and S2, no murmurs.\R\s1Hdajzlq pulses are 2+ bilaterally without bruit.\R\j8Lpjvjgs pulses are 2+ bilaterally.\R\f5Akrfd pulses are 2+ bilaterally.\R\b0No edema and/or varicosities. Chest Normal breasts with no dimpling or skin changes appreciated.\R\b0No breast or axillary massespalpated. Abdomen hemorrhoids noted, not acutely inflamed\R\b0Soft, non-tender with no masses.\R\b0No hepatosplenomegaly.\R\b0No hernia appreciated.\R\b9Pogvvw sphincter tone, no masses. Genitourinary Normal external genitalia and vagina, no lesions appreciated.\R\p8Smypyk meatus with no discharge.\R\b0The bladder is not distended, no tenderness.\R\g5Fphmlr is absent.\R\l1Kqyygz is ab sent.\R\k7Vzvoax/Parametria are normal, no masses or tenderness. Lymphatic No cervical lymphadenopathy.\R\b0No axillary lymphadenopathy.\R\b0No inguinal lymphadenopathy. Musculoskeletal Normal gait and station.\R\g3Mfmioj muscle strength and tone. Skin Skin and subcutaneous tissue are normal without rashes or lesions.\R\x5Anyyne turgor. Neurologic Reflexes are 2+ and symmetric.\R\t8Xrjoon tactile sensation with monofilament testing throughout boot feet. Capillary refill findings were normal bilaterally. Psychiatric Good eye contact and answers questions appropriately.\R\q5Jibrmyksior mood and affect. Signatures Electronically signed by : Cortney Chandra M.D.; Oct 11 2018 7:23AM TIMBER INSPECTOR documented in this encounter Plan of Treatment Not on file documented as of this encounter Visit Diagnoses Not on filedocumented in this encounter Care Teams Automatic Serging Machine Operator Relationship Specialty Start Date End Date Unknown, Provider . HIRAM PEGUERO [address] PCP - General 03/26/18 04/29/19 Cortney Chandra MD [address] [place] [address] PCP - General Family Medicine 04/30/19 Cortney Chandra MD [address] [place] [address] PCP Family Medicine 04/29/19 04/29/19 [facility] 03/30/23 Primary Eye Care 03/30/23 documented as of this encounter Additional Source Comments PLEASE NOTE: Replies to this message will not be received.[facility] and Replaced By [facility]
--- OUTSIDE RECORDS SUMMARY | 2024-03-22 01:46 | XMS_ITS | Encounter Summary ---
Author Organization [employer] Address [address] [place] [address] Care Team Providers Care Acid Blower Name Role Phone Cortney Chandra MD Primary Care Provider [phone] Reason for Visit * Reason Onset Date Comments Refill Request 02/19/2024 Encounter Details Date Type Department Care Team ([facility] st Contact Info) Description 02/19/2024 Refill [facility] Medicine [address] [place] [address] Cortney Chandra MD [address] [place] [address] Dx: Type 2 diabetes mellitus with stage 1 chronic kidney disease, without long-term current use of insulin (HCC) (Primary Dx) Social History Tobacco Use Types Packs/Day Years Used Date Smoking Tobacco: Never Smokeless Tobacco: Never Alcohol Use Standard Drinks/Week Comments Never 0 (1 standard drink = 0.6 oz pur e alcohol) [facility] Utilities Answer Date Recorded In the [...] How often do you attend chur or bahai services? More than 4 times per year 08/15/2023 Do you belong to any clubs o r organizations such as anglican groups, unions, fraternal or athletic groups, or [...] Not hard at all 08/15/2023 [facility] - Occupational [...] place to sleep or slept in a halfway (including now)? No 08/15/2023 Depression (PHQ-9) Answer [...] Primary documented in this encounter Care Teams Acid Blower Relationship Specialty Start Date End Date Cortney Chandra MD [address] [place] [phone] PCP - General Family Medicine 04/30/19 [facility] 03/30/23 Primary Eye Care 03/30/23 documented as of this encounter Additional Source Comments PLEASE NOTE: Replies to this message will not be received.[facility] and [facility]
--- OUTSIDE RECORDS SUMMARY | 2024-03-22 01:46 | XMS_ITS | Encounter Summary ---
Author Organization [employer] Address [address] [place] [address] Care Team Providers Care Synchronizer Name Role Phone Unknown, Provider Primary Care Provider Unavaila Cortney Gomez MD Unavailable [phone] Cortney Chandra MD Primary Care Provider [phone] Encounter Details Date Type Department Care Team (Late st Contact Info) Description 06/14/2018 Historical Conversion [facility] Family Medicine [address] [facility] [place] [address] Rosemary Aquino APRN,LIFE SCIENCE RESEARCH ASSISTANT [address] [place] [phone] Social History Tobacco Use Types Packs/Day Years Used Date Smoking Tobacco: Never Assessed Sex and Gender Information Value Date Recorded Sex Assigned at Not on file Gender Identity Female 01/16/2023 2:23 PM CDT Sexual Orientation Not on file documented as of this encounter Progress Notes * Rosemary Aquino, CHALINO,LIFE SCIENCE RESEARCH ASSISTANT - 06/14/2018 12:00 AM CST Assessment 1. [...] UA - Culture if Indicated; Status:Complete; Done: 99Bvu9404 09:17AM Reason For Visit Patient in with [...] TABLET THREE TIMES DAILY; Therapy: 30Sep2010 to (Evaluate:32Hws0241) Requested for: 07Jul2016; Last Rx:07Jul2016 Ordered 3. Fluticasone Propionate 50 MCG/ACT Nasal Suspension; INSTILL 1 SPRAY DAILY IN EACH NOSTRIL; Therapy: 17Apr2009 to (Evaluate:14Apr2018) Requested for: 16Oct2017; Last Rx:16Oct2017 Ordered 4. Hydrocortisone 2.5 % External Cream; APPLY SPARINGLY TO AFFECTED AREA(S) TWICE DAILY; Therapy: 20Jul2015 to (Evaluate:05Wnv8706) Requested for: 17Jul2017; Last Rx:17Jul2017 Ordered 5. Loratadine 10 MG Oral Tablet; TAKE 1 TABLET BY MOUTH DAILY NEEDED; Therapy: 01Auc7590 to (Evaluate:12Sep2018) Requested for: 17Sep2017; Last Rx:17Sep2017 Ordered 6. Losartan Potassium 100 MG Oral Tablet; TAKE 1 TABLET BY MOUTH ONCE DAILY; Therapy: 38Kgr9241 to (Evaluate:12Jul2018) Requested for: 17Jul2017; Last Rx:17Jul2017 Ordered 7. MetFORMIN HCl ER 500 MG Oral Tablet Extended Release 24 Hour; TAKE 4 TABLETS( 2000MG) BY MOUTH ONCE DAILY; Therapy: 24Fqw5934 to (Evaluate:12Jul2018) Requested for: 17Jul2017; Last Rx:17Jul2017 Ordered 8. One-Daily Multi Vitamins Oral Tablet; TAKE 1 TABLET DAILY; Therapy: (Recorded:23Jul2012) to Recorded 9. Simvastatin 20 MG Oral Tablet; TAKE ONE TABLET BY MOUTH DAILY; Therapy: 84Fge2437 to (Evaluate:12Jul2018) Requested for: 17Jul2017; Last Rx:17Jul2017 Ordered 10. Ventolin HFA 108 (90 Base) MCG/ACT Inhalation Aerosol Solution; INHALE 1 TO 2 PUFFS EVERY 4 TO 6 HOURS NEEDED; Therapy: 06Mar2017 to (Last Rx:06Mar2017) Requested for: 06Mar2017 Ordered 11. Vitamin D3 1000 UNIT Oral Tablet; takes 2 tablets daily; Therapy: (Recorded:82Gvc3066) to Recorded Allergies 1. Ultram TABS Vitals [...] Electronically signed by : Rosemary Aquino, RN LIFE SCIENCE RESEARCH ASSISTANT RN,LIFE SCIENCE RESEARCH ASSISTANT; Jun 14 2018 12:24PM ASSISTANT PROFESSOR OF PSYCHOLOGY Electronically signed by : Klever Nicole M.D.; Jul 15 2018 3:46PM ASSISTANT PROFESSOR OF PSYCHOLOGY documented in this encounter Plan of Treatment Not on file documented as of this encounter Visit Diagnoses Not on filedocumented in this encounter Care Teams Synchronizer Relationship Specialty Start Date End Date Unknown, Provider . HIRAM PEGUERO [address] PCP - General 03/26/18 04/29/19 Cortney Chandra MD [address] [place] [phone] PCP - General Family Medicine 04/30/19 Cortney Chandra MD [address] [place] [address] PCP Family Medicine 04/29/19 04/29/19 [facility] 03/30/23 Primary Eye Care 03/30/23 documented as of this encounter Additional Source Comments PLEASE NOTE: Replies to this message will not be received.[facility] and [facility]
--- OUTSIDE RECORDS SUMMARY | 2024-03-22 01:46 | XMS_ITS | Encounter Summary ---
Author Organization [employer] Address [address] [place] [address] Care Team Providers Care Secondary Spanish Teacher Name Role Phone Unknown, Provider Primary Care Provider Unavaila Cortney Gomez MD Unavailable [phone] Cortney Chandra MD Primary Care Provider [phone] Encounter Details Date Type Department Care Team (Late st Contact Info) Description 08/13/2018 Historical Conversion [facility] Family Medicine [address] [facility] [address] Rosemary Aquino APRN,PERCHER [address] [place] [address] Social History Tobacco Use Types Packs/Day Years Used Date Smoking Tobacco: Never Assessed Sex and Gender Information Value Date Recorded Sex Assigned at Not on file Gender Identity Female 01/16/2023 2:23 PM CDT Sexual Orientation Not on file documented as of this encounter Progress Notes * Rosemary Aquino, CHALINO,PERCHER - 08/13/2018 12:00 AM CST Assessment 1. [...] - Requires Verification,Retrospective By Protocol Authorization; Done: 78Btc4056 02:29PM Reason For Visit Patient in with [...] Aspirin 81 MG TABS; ONE DAILY; Last Rx:36Fqd7281 Ordered 2. Cyclobenzaprine HCl - 10 MG Oral Tablet; TAKE 1/2 TO 1 TABLET THREE TIMES DAILY; Therapy: 30Sep2010 to (Evaluate:03Xsz1019) Requested for: 07Jul2016; Last Rx:07Jul2016 Ordered 3. Fluticasone Propionate 50 MCG/ACT Nasal Suspension; INSTILL 1 SPRAY DAILY IN EACH NOSTRIL; Therapy: 17Apr2009 to (Evaluate:14Apr2018) Requested for: 16Oct2017; Last Rx:16Oct2017 Ordered 4. Hydrocortisone 2.5 % External Cream; APPLY SPARINGLY TO AFFECTED AREA(S) TWICE DAILY; Therapy: 20Jul2015 to (Evaluate:00Ksy0677) Requested for: 17Jul2017; Last Rx:17Jul2017 Ordered 5. Loratadine 10 MG Oral Tablet; TAKE 1 TABLET BY MOUTH DAILY NEEDED; Therapy: 75Ehu3638 to (Evaluate:12Sep2018) Requested for: 17Sep2017; Last Rx:17Sep2017 Ordered 6. Losartan Potassium 100 MG Oral Tablet; TAKE 1 TABLET BY MOUTH ONCE DAILY; Therapy: 32Cbh8312 to (Evaluate:10Jul2019) Requested for: 15Jul2018; Last Rx:15Jul2018 Ordered 7. metFORMIN HCl ER 500 MG Oral Tablet Extended Release 24 Hour; TAKE 4 TABLETS( 2000MG) BY MOUTH ONCE DAILY; Therapy: 87Idh6538 to (Evaluate:18Jul2019) Requested for: 23Jul2018; Last Rx:23Jul2018 Ordered 8. One-Daily Multi Vitamins Oral Tablet; TAKE 1 TABLET DAILY; Therapy: (Recorded:23Jul2012) to Recorded 9. Pyridium 100 MG Oral Tablet; TAKE 1 TABLET 3 TIMES DAILY AFTER MEALS NEEDED; Therapy: 60Oru2671 to (Last Rx:21Nef5530) Requested for: 14Jun2018 Ordered 10. Simvastatin 20 MG Oral Tablet; TAKE ONE TABLET BY MOUTH DAILY; Therapy: 81Upn0892 to (Evaluate:10Jul2019) Requested for: 15Jul2018; Last Rx:15Jul2018 Ordered 11. Ventolin HFA 108 (90 Base) MCG/ACT Inhalation Aerosol Solution; INHALE 1 TO 2 PUFFS EVERY 4 TO 6 HOURS NEEDED; Therapy: 06Mar2017 to (Last Rx:99Hxv2574) Requested for: 24Pma1060 Ordered 12. Vitamin D3 1000 UNIT Oral Tablet; takes 2 tablets daily; Therapy: (Recorded:49Erh5391) to Recorded Allergies 1. Ultram TABS Vitals [...] Urinalysis-Color YEL Urinalysis- Appearance CLOUD A Urinalysis-Sp [place] 1.010 1.005-1.030 Urinalysis-pH 5.5 5.0-7.5 Urinalysis-Protein NEG NEGATIVE Urinalysis- Glucose NEG NEGATIVE Urinalysis-Ketone TRACE A NEGATIVE Urinalysis- Bilirub NEG NEGATIVE Urinalysis- Blood 3+ A NEGATIVE Urinalysis-Urobil 0.2 0.2-1.0 Urinalysis-Nitrite NEG NEGATIVE Urinalysis-Leuk 3+ A NEGATIVE Urinalysis-WBC TNTC A 0-4 Urinalysis-RBC TNTC A 0-4 Urinalysis-Epith FEW Urinalysis-Hyal Cast NEG Urinalysis- Bacteria MOD A UrinalysisA Urinalysis-Color YEL Urinalysis- Appearance CLOUD A Urinalysis-Sp [place] 1.010 1.005-1.030 Urinalysis-pH 5.5 5.0-7.5 Urinalysis-Protein NEG NEGATIVE Urinalysis- Glucose NEG NEGATIVE Urinalysis-Ketone TRACE A NEGATIVE Urinalysis- Bilirub NEG NEGATIVE Urinalysis- Blood 3+ A NEGATIVE Urinalysis-Urobil 0.2 0.2-1.0 Urinalysis-Nitrite NEG NEGATIVE Urinalysis-Leuk 3+ A NEGATIVE Urinalysis-WBC TNTC A 0-4 Urinalysis-RBC TNTC A 0-4 Urinalysis-Epith FEW Urinalysis-Hyal Cast NEG Urinalysis- Bacteria MOD A UrinalysisA Signatures Electronically signed by : Rosemary Aquino RN PERCHER RN,PERCHER; Aug 13 2018 3:19PM WELL DRILLER HELPER documented in this encounter Plan of Treatment Not on file documented as of this encounter Visit Diagnoses Not on filedocumented in this encounter Care Teams Secondary Spanish Teacher Relationship Specialty Start Date End Date Unknown, Provider . HIRAM PEGUERO [address] PCP - General 03/26/18 04/29/19 Cortney Chandra MD [address] [place] [address] PCP - General Family Medicine 04/30/19 Cortney Chandra MD [address] [place] [address] PCP Family Medicine 04/29/19 04/29/19 [facility] 03/30/23 Primary Eye Care 03/30/23 documented as of this encounter Additional Source Comments PLEASE NOTE: Replies to this message will not be received.[facility] and [facility]
--- OUTSIDE RECORDS SUMMARY | 2024-03-22 01:46 | XMS_ITS | Encounter Summary ---
Author Organization [employer] Address [address] [place] [address] Care Team Providers Care Chief Nursing Executive Name Role Phone Cortney Chandra MD Primary Care Provider [phone] Reason for Visit * Reason Comments Refill Request Encounter Details Date Type Department Care Team (Late st Contact Info) Description 01/05/2024 Refill [facility] Medicine [address] [place], [place] [id number] Cortney Chandra MD [address] [place] [address] Dx: Rash (Primary Dx) Social History Tobacco Use Types Packs/Day Years Used Date Smoking Tobacco: Never Smokeless Tobacco: Never Alcohol Use Standard Drinks/Week Comments Never 0 (1 standard drink = 0.6 oz pur e alcohol) [place] Utilities Answer Date Recorded In the past [address] [facility] [employer], gas, oil, or water [facility] threatened to shut off services in your [...] and heating? Not hard at all 08/15/2023 [facility] - Occupational [...] place to sleep or slept in a fci (including now)? No 08/15/2023 Depression (PHQ-9) Answer [...] encounter Miscellaneous Notes * Telephone Encounter - Jennfier Hernandez RN - 01/05/2024 1:03 PM CDT [...] eruption documented in this encounter Care Teams Chief Nursing Executive Relationship Specialty Start Date End Date Cortney Chandra MD [address] [place] [phone] PCP - General Family Medicine 04/30/19 [facility] 03/30/23 Primary Eye Care 9/25/23 documented as of this encounter Additional Source Comments PLEASE NOTE: Replies to this message will not be received.[facility] and [facility]
--- OUTSIDE RECORDS SUMMARY | 2024-03-22 01:47 | XMS_ITS | Encounter Summary ---
Author Organization [employer] Address [address] [place] [address] Care Team Providers Care Multiple Slide Operator Name Role Phone Unknown, Provider Primary Care Provider UnavailCortney Dye MD Unavailable [phone] Cortney Chandra MD Primary Care Provider [phone] Encounter Details Date Type Department Care Team (Late st Contact Info) Description 12/25/2016 Historical Conversion [facility] Family Medicine [address] [place] [address]. [place] [address] Social History Tobacco Use Types Packs/Day Years [...] Body Mass Index 31.77 08/19/2016 12:00 AM FINISHED STOCK INSPECTOR documented in this encounter Plan of Treatment Not on file documented as of this encounter Visit Diagnoses Not on filedocumented in this encounter Care Teams Multiple Slide Operator Relationship Specialty Start Date End Date Unknown, [place] [address] PCP - General 03/26/18 04/29/19 Cortney Chandra MD [address] [place] [address] PCP - General Family Medicine 04/30/19 Cortney Chandra MD [address] [place] [phone] PCP Family Medicine 04/29/19 04/29/19 [facility] 03/30/23 Primary Eye Care 03/30/23 documented as of this encounter Additional Source Comments PLEASE NOTE: Replies to this message will not be received.[facility] and [facility]
--- OUTSIDE RECORDS SUMMARY | 2024-03-22 01:47 | XMS_ITS | Encounter Summary ---
Author Organization [employer] Address [address] [place] [address] Care Team Providers Care Tire Service Supervisor Name Role Phone Unknown, Provider Primary Care Provider Unavaila ble Cortney Chandra MD Unavailable [phone] Cortney Chandra MD Primary Care Provider [phone] Encounter Details Date Type Department Care Team (Late st Contact Info) Description 07/20/2015 Historical Conversion [facility] Family Medicine [address] [place] [address] [place] [address] Cortney Chandra MD [address] [place] [address] Social History Tobacco Use Types [...] 81 MG Oral Tablet; ONE DAILY; Last Rx:[id number] Ordered 2. Calcium 600/Vitamin D3 TABS; 1 [...] DAILY IN EACH NOSTRIL; Therapy: 17Apr2009 to (Evaluate:52Mkh4227) Requested for: 09May2014; Last Rx:09May2014 Ordered 6. Loratadine 10 MG Oral Tablet; TAKE 1 TABLET BY MOUTH DAILY NEEDED; Therapy: 80Zua5918 to (Evaluate:92Xwb1326) Requested for: 75Vwz4087; Last Rx:78Ecp3838 Ordered 7. Losartan Potassium 100 MG Oral Tablet; TAKE 1 TABLET BY MOUTH ONCE DAILY; Therapy: 46Sxk2587 to (Evaluate:83Yic7771) Requested for: 13Feb2015; Last Rx:88Dix1153 Ordered 8. MetFORMIN HCl ER 500 MG Oral Tablet Extended Release 24 Hour; TAKE 4 TABLETS( 2000MG) BY MOUTH ONCE DAILY; Therapy: 96Ifm3299 to (Evaluate:44Err1012) Requested for: 13Feb2015; Last Rx:13Feb2015 Ordered 9. One-Daily Multi Vitamins Oral Tablet; TAKE 1 TABLET DAILY; Therapy: (Recorded:23Jul2012) to Recorded 10. ProAir HFA 108 (90 Base) MCG/ACT Inhalation Aerosol Solution; INHALE 2 PUFFS EVERY 4 HOURS NEEDED FOR COUGHAND WHEEZE; Therapy: 26May2008 to (Last Rx:14May2015) Requested for: 14May2015 Ordered 11. Simvastatin 20 MG Oral Tablet; TAKE ONE TABLET BY MOUTH DAILY; Therapy: 02Thz8330 to (Evaluate:11Jul2016) Requested for: 17Jul2015; Last Rx:17Jul2015 [...] Never smoked Review of Systems Female Complete [facility]: Constitutional: no fever and no chills. Eyes: [...] is a 65-year-old recently retired employee from [employer] that is here for her first Medicare [...] Cortney Chandra M.D.; Aug 07 2015 1:15PM APPRENTICE PATTERN MAKER documented in this encounter Plan of Treatment Not on file documented as of this encounter Visit Diagnoses Not on filedocumented in this encounter Care Teams Tire Service Supervisor Relationship Specialty Start Date End Date Unknown, Provider . HIRAM PEGUERO [id number] PCP - General 03/26/18 04/29/19 Cortney Chandra MD [address] [place] [address] PCP - General Family Medicine 04/30/19 Cortney Chandra MD [address] [place] [address] PCP Family Medicine 04/29/19 04/29/19 [facility] 03/30/23 Primary Eye Care 03/30/23 documented as of this encounter Additional Source Comments PLEASE NOTE: Replies to this message will not be received.[facility] and [facility]
--- OUTSIDE RECORDS SUMMARY | 2024-03-22 01:47 | XMS_ITS | Encounter Summary ---
Author Organization [employer] Address [address] [place] [address] Care Team Providers Care Recording Studio Intern Name Role Phone Unknown, Provider Primary Care Provider Unavaila ble Cortney Chandra MD Unavailable [phone] Cortney Chandra MD Primary Care Provider [phone] Encounter Details Date Type Department Care Team (Late st Contact Info) Description 09/01/2014 Historical Conversion [facility] Family Medicine [address] [place] [address]. [place] [address] Cortney Chandra MD [address] [place] [address] Social History Tobacco Use Types Packs/Day Years Used Date Smoking Tobacco: Never Assessed Sex and Gender Information Value Date Recorded Sex Assigned at Not on file Gender Identity Female 01/16/2023 2:23 PM CDT Sexual Orientation Not on file documented as of this encounter Last Filed Vital Signs Vital Sign Reading Time Taken Comments Blood Pressure 130/80 09/01/2014 12:00 AM ATTIC BLOWER Pulse - - Temperature - - Respiratory Rate - - Oxygen Saturation - - Inhaled Oxygen Concentration - - Weight 85.7 kg (189 lb) 09/01/2014 12:00 AM ATTIC BLOWER Height 163.8 cm (5' 4.5) 09/01/2014 12:00 AM CS T Body Mass Index 31.94 09/01/2014 12:00 AM ATTIC BLOWER documented in this encounter Plan of Treatment Not on file documented as of this encounter Visit Diagnoses Not on filedocumented in this encounter Care Teams Recording Studio Intern Relationship Specialty Start Date End Date Unknown, Provider . HIRAM PEGUERO [address] PCP - General 03/26/18 04/29/19 Cortney Chandra MD [address] [place] [address] PCP - General Family Medicine 04/30/19 Cortney Chandra MD [address] [place] [address] PCP Family Medicine 04/29/19 04/29/19 [facility] 03/30/23 Primary Eye Care 03/30/23 documented as of this encounter Additional Source Comments PLEASE NOTE: Replies to this message will not be received.[facility] and [facility]
--- OUTSIDE RECORDS SUMMARY | 2024-03-22 01:47 | XMS_ITS | Encounter Summary ---
Author Organization [employer] Address [address] [place] [address] Care Team Providers Care Vending Machine Repairer Name Role Phone Unknown, Provider Primary Care Provider Unavaila ble Cortney Chandra MD Unavailable [phone] Cortney Chandra MD Primary Care Provider [phone] Encounter Details Date Type Department Care Team (Late st Contact Info) Description 11/18/2013 Historical Conversion [facility] Family Medicine [address] [place] [address] [place] [address] Cortney Chandra MD [address] [place] [address] Social History Tobacco Use Types [...] Encounter] Recorded by : Marya Lyons at 79Rqm2768 10:47AM Blood Pressure 118 / 70, LUE, [...] on filedocumented in this encounter Care Teams Vending Machine Repairer Relationship Specialty Start Date End Date Unknown, Provider . HIRAM PEGUERO [address] PCP - General 03/26/18 04/29/19 Cortney Chandra MD [address] [place] [address] PCP - General Family Medicine 04/30/19 Cortney Chandra MD [address] [place] [address] PCP Family Medicine 04/29/19 04/29/19 [facility] 03/30/23 Primary Eye Care 03/30/23 documented as of this encounter Additional Source Comments PLEASE NOTE: Replies to this message will not be received.[facility] and [facility]
--- OUTSIDE RECORDS SUMMARY | 2024-03-22 01:47 | XMS_ITS | Encounter Summary ---
Author Organization [employer] Address [address] [place] [address] Care Team Providers Care Automatic Spinning Lathe Setter Name Role Phone Unknown, Provider Primary Care Provider Unavaila ble Cortney Chandra MD Unavailable [phone] Cortney Chandra MD Primary Care Provider [phone] Encounter Details Date Type Department Care Team (Late st Contact Info) Description 08/10/2015 Historical Conversion [facility] Family Medicine [address] [place] [address] [place] [address] Cortney Chandra MD [address] [place] [address] Social History Tobacco Use Types [...] for c/o pain/tingling in Rt. arm. 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 Allergic rhinitis due [...] 81 MG Oral Tablet; ONE DAILY; Last Rx:[id number] Ordered 2. Calcium 600/Vitamin D3 TABS; 1 [...] DAILY IN EACH NOSTRIL; Therapy: 17Apr2009 to (Evaluate:67Hfv6410) Requested for: 09May2014; Last Rx:09May2014 Ordered 6. Hydrocortisone 2.5 % External Cream; APPLY SPARINGLY TO AFFECTED AREA(S) TWICE DAILY; Therapy: 20Jul2015 to (Last Rx:20Jul2015) Requested for: 20Jul2015 Ordered 7. Loratadine 10 MG Oral Tablet; TAKE 1 TABLET BY MOUTH DAILY NEEDED; Therapy: 24Hia0967 to (Evaluate:30Onb4895) Requested for: 52Oat8903; Last Rx:20Uaq1461 Ordered 8. Losartan Potassium 100 MG Oral Tablet; TAKE 1 TABLET BY MOUTH ONCE DAILY; Therapy: 48Xpj2973 to (Evaluate:14Jul2016) Requested for: 20Jul2015; Last Rx:20Jul2015 Ordered 9. MetFORMIN HCl ER 500 MG Oral Tablet Extended Release 24 Hour; TAKE 4 TABLETS( 2000MG) BY MOUTH ONCE DAILY; Therapy: 31Iit5699 to (Evaluate:14Jul2016) Requested for: 20Jul2015; Last Rx:20Jul2015 [...] TAKE ONE TABLET BY MOUTH DAILY; Therapy: 06Kcu3052 to (Evaluate:14Jul2016) Requested for: 20Jul2015; Last Rx:20Jul2015 [...] Vital Signs [Data Includes: Current Encounter] Recorded: 89Lrl9033 02:56PM Blood Pressure 136 / 92, RUE, [...] traction would benefit Status: Active Requested for: 97Dbi0727 Care Summary provided. : Yes With: : [facility] PT/OT DEPT Related: : No Encounter: : No Phone Number to Contact Patient: : home [phone] to Provider, Practice or Agency: : PT at [facility] 2. PredniSONE 20 MG Oral Tablet; TAKE 2 TABLET DAILY Signatures Electronically signed by : Cortney Chandra M.D.; Aug 22 2015 9:54AM MUNITIONS HANDLER documented in this encounter Plan of Treatment Not on file documented as of this encounter Visit Diagnoses Not on filedocumented in this encounter Care Teams Automatic Spinning Lathe Setter Relationship Specialty Start Date End Date Unknown, Provider . HIRAM PEGUERO [address] PCP - General 03/26/18 04/29/19 Cortney Chandra MD [address] [place] [address] PCP - General Family Medicine 04/30/19 Cortney Chandra MD [address] [place] [address] PCP Family Medicine 04/29/19 04/29/19 [facility] 03/30/23 Primary Eye Care 03/30/23 documented as of this encounter Additional Source Comments PLEASE NOTE: Replies to this message will not be received.[facility] and [facility]
--- OUTSIDE RECORDS SUMMARY | 2024-03-22 01:47 | XMS_ITS | Encounter Summary ---
Author Organization [employer] Address [address] [place] [address] Care Team Providers Care Metal Machine Setter Name Role Phone Unknown, Provider Primary Care Provider Unavaila Cortney Gomez MD Unavailable [phone] Cortney Chandra MD Primary Care Provider [phone] Encounter Details Date Type Department Care Team (Late st Contact Info) Description 06/16/2017 Historical Conversion [facility] Family Medicine [address] [place] [address] Rosalia Lopez MD Social History Tobacco Use Types Packs/Day Years Used Date Smoking Tobacco: Never Assessed Sex and Gender Information Value Date Recorded Sex Assigned at Not on file Gender Identity Female 01/16/2023 2:23 PM CDT Sexual Orientation Not on file documented as of this encounter Last Filed Vital Signs Vital Sign Reading Time Taken Comments Blood Pressure 136/81 06/16/2017 12:00 AM CAR DRIVER Pulse - - Temperature - - Respiratory Rate - - Oxygen Saturation - - Inhaled Oxygen Concentration - - Weight 86.5 kg (190 lb 11.2 oz) 017 12:00 AM CAR DRIVER Height - - Body Mass Index 32.56 08/19/2016 12:00 AM CAR DRIVER documented in this encounter Progress Notes * Rosalia Lopez MD - 06/16/2017 12:00 AM CST DERMATOLOGY OCTAVIO GALVAN : 1950 HX: [id number] DOS: 06/16/2017 CHIEF COMPLAINT: History of squamous [...] notes any new or changing lesion. Rosalia oLpez M.D./ cc: Cortney Chandra M.D./[facility] Electronically signed by:Rosalia Lopez M.D. Jun 23 2017 8:25AM CAR DRIVER documented in this encounter Plan of Treatment Not on file documented as of this encounter Visit Diagnoses Not on filedocumented in this encounter Care Teams Metal Machine Setter Relationship Specialty Start Date End Date Unknown, Provider . HIRAM PEGUERO [address] PCP - General 03/26/18 04/29/19 Cortney Chandra MD [address] [place] [address] PCP - General Family Medicine 04/30/19 Cortney Chandra MD [address] [place] [address] PCP Family Medicine 04/29/19 04/29/19 [facility] 03/30/23 Primary Eye Care 03/30/23 documented as of this encounter Additional Source Comments PLEASE NOTE: Replies to this message will not be received.[facility] and [facility]
--- OUTSIDE RECORDS SUMMARY | 2024-03-22 01:47 | XMS_ITS | Encounter Summary ---
Author Organization [employer] Address [address] [place] [address] Care Team Providers Care Ditch Tender Name Role Phone Unknown, Provider Primary Care Provider Unavaila Cortney Gomez MD Unavailable [phone] Cortnye Chandra MD Primary Care Provider [phone] Encounter Details Date Type Department Care Team (Late st Contact Info) Description 03/07/2016 Historical Conversion [facility] Family Medicine [address] [place] [address] Rosalia Lopez MD Social History Tobacco Use [...] CDT DERMATOLOGY OCTAVIO GALVAN : 1950 HX: [id number] DOS: 03/07/2016 CHIEF COMPLAINT: History of squamous [...] ineffective. Rosalia Lopez M.D./la-7 cc: Cortney Chandra M.D./[facility] Electronically signed by:Rosalia Lopez M.D. 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 HIRAM PEGUERO [address] PCP - General 03/26/18 04/29/19 Cortney Chandra MD [address] [place] [address] PCP - General Family Medicine 04/30/19 Cortney Chandra MD [address] [place] [address] PCP Family Medicine 04/29/19 04/29/19 [facility] 03/30/23 Primary Eye Care 03/30/23 documented as of this encounter Additional Source Comments PLEASE NOTE: Replies to this message will not be received.[facility] and [facility]
--- OUTSIDE RECORDS SUMMARY | 2024-03-22 01:47 | XMS_ITS | Encounter Summary ---
Author Organization [employer] Address [address] [place] [address] Care Team Providers Care Power System Electrical Engineer Name Role Phone Unknown, Provider Primary Care Provider Unavaila ble Cortney Chandra MD Unavailable [phone] Cortney Chandra MD Primary Care Provider [phone] Encounter Details Date Type Department Care Team (Late st Contact Info) Description 07/20/2015 Historical Conversion [facility] Family Medicine [address] [place] [address]. [place] [address] Cortney Chandra MD [address] [place] [address] Social History Tobacco Use Types Packs/Day Years Used Date Smoking Tobacco: Never Assessed Sex and Gender Information Value Date Recorded Sex Assigned at Not on file Gender Identity Female 01/16/2023 2:23 PM CDT Sexual Orientation Not on file documented as of this encounter Last Filed Vital Signs Vital Sign Reading Time Taken Comments Blood Pressure 132/76 07/20/2015 12:00 AM FINANCIAL INSTITUTION MANAGER Pulse - - Temperature - - Respiratory Rate - - Oxygen Saturation - - Inhaled Oxygen Concentration - - Weight 87.1 kg (192 lb 0.3 oz) 07/20/2015 12:00 AM FINANCIAL INSTITUTION MANAGER Height 164 cm (5' 4.57) 07/20/2015 12:00 AM FINANCIAL INSTITUTION MANAGER Body Mass Index 32.79 07/20/2015 12:00 AM FINANCIAL INSTITUTION MANAGER documented in this encounter Plan of Treatment Not on file documented as of this encounter Visit Diagnoses Not on filedocumented in this encounter Care Teams Power System Electrical Engineer Relationship Specialty Start Date End Date Unknown, Provider . HIRAM PEGUERO [address] PCP - General 03/26/18 04/29/19 Cortney Chandra MD [address] [place] [address] PCP - General Family Medicine 04/30/19 Cortney Chandra MD [address] [place] [place] [address] PCP Family Medicine 04/29/19 04/29/19 [facility] 03/30/23 Primary Eye Care 03/30/23 documented as of this encounter Additional Source Comments PLEASE NOTE: Replies to this message will not be received.[facility] and [facility]
--- OUTSIDE RECORDS SUMMARY | 2024-03-22 01:47 | XMS_ITS | Encounter Summary ---
Author Organization [employer] Address [address] [place] [address] Care Team Providers Care Tube Lancer Name Role Phone Unknown, Provider Primary Care Provider UnavailCortney Dye MD Unavailable [phone] Cortney Chandra MD Primary Care Provider [phone] Encounter Details Date Type Department Care Team (Late st Contact Info) Description 09/03/2017 Historical Conversion [facility] Family Medicine [address] [facility] [address] Rosemary Aquino APRN,RUG BACKING STENCILER [address] [place] [address] Social History Tobacco Use Types Packs/Day Years Used Date Smoking Tobacco: Never Assessed Sex and Gender Information Value Date Recorded Sex Assigned at Not on file Gender Identity Female 01/16/2023 2:23 PM CDT Sexual Orientation Not on file documented as of this encounter Progress Notes * Rosemary Aquino, CHALINO,RUG BACKING STENCILER - 09/03/2017 12:00 AM CST Assessment 1. [...] TO 6 HOURS NEEDED; Therapy: 05Oct2012 to (Evaluate:14Cwr3056); Last Rx:08Aug2016 Ordered 3. Cyclobenzaprine HCl - 10 MG Oral Tablet; TAKE 1/2 TO 1 TABLET THREE TIMES DAILY; Therapy: 30Sep2010 to (Evaluate:34Eku9809) Requested for: 07Jul2016; Last Rx:07Jul2016 Ordered 4. Fluticasone Propionate 50 MCG/ACT Nasal Suspension; INSTILL 1 SPRAY DAILY IN EACH NOSTRIL; Therapy: 17Apr2009 to (Evaluate:15Dec2016) Requested for: 25Gym4902; Last Rx:14Win3589 Ordered 5. Hydrocortisone 2.5 % External Cream; APPLY SPARINGLY TO AFFECTED AREA(S) TWICE DAILY; Therapy: 20Jul2015 to (Evaluate:69Kyz5512) Requested for: 17Jul2017; Last Rx:17Jul2017 Ordered 6. Loratadine 10 MG Oral Tablet; TAKE 1 TABLET BY MOUTH DAILY NEEDED; Therapy: 20Ekv4067 to (Evaluate:12Sep2017) Requested for: 17Sep2016; Last Rx:17Sep2016 Ordered 7. Losartan Potassium 100 MG Oral Tablet; TAKE 1 TABLET BY MOUTH ONCE DAILY; Therapy: 13Mim2915 to (Evaluate:12Jul2018) Requested for: 17Jul2017; Last Rx:17Jul2017 Ordered 8. MetFORMIN HCl ER 500 MG Oral Tablet Extended Release 24 Hour; TAKE 4 TABLETS( 2000MG) BY MOUTH ONCE DAILY; Therapy: 28Avo6489 to (Evaluate:12Jul2018) Requested for: 17Jul2017; Last Rx:17Jul2017 Ordered 9. One-Daily Multi Vitamins Oral Tablet; TAKE 1 TABLET DAILY; Therapy: (Recorded:23Jul2012) to Recorded 10. Simvastatin 20 MG Oral Tablet; TAKE ONE TABLET BY MOUTH DAILY; Therapy: 29Tnn9849 to (Evaluate:12Jul2018) Requested for: 17Jul2017; Last Rx:17Jul2017 [...] Electronically signed by : Rosemary Aquino RN RUG BACKING STENCILER RN,RUG BACKING STENCILER; Sep 03 2017 5:41PM ROAD HOGGER OPERATOR Electronically signed by Rosemary Aquino, FACILITY ADMINISTRATOR,RUG BACKING STENCILER at 11/25/2018 5:37 PM CDT documented in this encounter Plan of Treatment Not on file documented as of this encounter Visit Diagnoses Not on filedocumented in this encounter Care Teams Tube Lancer Relationship Specialty Start Date End Date Unknown, Provider . HIRAM PEGUERO [address] PCP - General 03/26/18 04/29/19 Cortney Chandra MD [address] [place] [address] PCP - General Family Medicine 04/30/19 Cortney Chandra MD [address] [place] [address] PCP Family Medicine 04/29/19 04/29/19 [facility] 03/30/23 Primary Eye Care 03/30/23 documented as of this encounter Additional Source Comments PLEASE NOTE: Replies to this message will not be received.[facility] and [facility]
--- OUTSIDE RECORDS SUMMARY | 2024-03-22 01:47 | XMS_ITS | Encounter Summary ---
Author Organization [employer] Address [address] [place] [address] Care Team Providers Care Campground Hand Name Role Phone Unknown, Provider Primary Care Provider Unavaila ble Cortney Chandra MD Unavailable [phone] Cortney Chandra MD Primary Care Provider [phone] Encounter Details Date Type Department Care Team (Late st Contact Info) Description 09/01/2014 Historical Conversion [facility] Family Medicine [address] [place] [address]. [place] [address] Cortney Chandra MD [address] [place] [address] Social History Tobacco Use Types [...] has some skin discolorations on her Rt cheondoism C Giancarlo LEAN MANUFACTURING SPECIALIST Current Meds 1. Aspirin 81 MG Oral [...] BY MOUTH NEEDED; Therapy: 30Sep2010 to (Last Rx:23Rvk9026) Requested for: 14Fqs4606 Ordered 5. Fluticasone Propionate 50 MCG/ACT Nasal Suspension; INSTILL 1 SPRAY DAILY IN EACH NOSTRIL; Therapy: 17Apr2009 to (Evaluate:28Unp9081) Requested for: 09May2014; Last Rx:09May2014 Ordered 6. Hydrochlorothiazide 25 MG Oral Tablet; TAKE ONE TABLET EVERY MORNING; Therapy: 26May2008 to (Evaluate:09Npx2059) Requested for: 19Lkp0028; Last Rx:11Anc8515 Ordered 7. Loratadine 10 MG Oral Tablet; TAKE 1 TABLET BY MOUTH DAILY NEEDED; Therapy: 42Qyf7398 to (Evaluate:00Qci8174) Requested for: 04Jun2014; Last Rx:04Jun2014 Ordered 8. Losartan Potassium 100 MG Oral Tablet; TAKE 1 TABLET BY MOUTH ONCE DAILY; Therapy: 48Efl6702 to (Evaluate:19Ygt5351) Requested for: 13Feb2014; Last Rx:43Ead8429 Ordered 9. MetFORMIN HCl ER 500 MG Oral Tablet Extended Release 24 Hour; TAKE 4 TABLETS( 2000MG) BY MOUTH ONCE DAILY; Therapy: 67Gyy2197 to (Evaluate:95Git2570) Requested for: 99Cuj6277; Last Rx:13Mzu1933 Ordered 10. One-Daily Multi Vitamins Oral Tablet; TAKE 1 TABLET DAILY; Therapy: (Recorded:23Jul2012) to Recorded 11. ProAir HFA 108 (90 Base) MCG/ACT Inhalation Aerosol Solution; INHALE 2 PUFFS EVERY 4 HOURS NEEDED FOR COUGHAND WHEEZE; Therapy: 26May2008 to (Last Rx:09May2014) Requested for: 09May2014 Ordered 12. Simvastatin 20 MG Oral Tablet; TAKE ONE TABLET BY MOUTH DAILY; Therapy: 55Aog5637 to (Evaluate:04Dec2014) Requested for: 09Dec2013; Last Rx:09Dec2013 [...] Vital Signs [Data Includes: Current Encounter] Recorded: 59Lzj5895 08:19AM Blood Pressure 130 / 80, LUE, [...] Cortney Chandra M.D.; Sep 15 2014 10:14AM DIGITAL ART DIRECTOR documented in this encounter Plan of Treatment Not on file documented as of this encounter Visit Diagnoses Not on filedocumented in this encounter Care Teams Campground Hand Relationship Specialty Start Date End Date Unknown, Provider . HIRAM PEGUERO [address] PCP - General 03/26/18 04/29/19 Cortney Chandra MD [address] [place] [address] PCP - General Family Medicine 04/30/19 Cortney Chandra MD [address] [place] [address] PCP Family Medicine 04/29/19 04/29/19 [facility] 03/30/23 Primary Eye Care 03/30/23 documented as of this encounter Additional Source Comments PLEASE NOTE: Replies to this message will not be received.[facility]
--- OUTSIDE RECORDS SUMMARY | 2024-03-22 01:47 | XMS_ITS | Encounter Summary ---
Author Organization [facility] Address [address] [place] [address] Care Team Providers Care Temper Mill Roller Name Role Phone Unknown, Provider Primary Care Provider Unavaila ble Cortney Chandra MD Unavailable [phone] Cortney Chandra MD Primary Care Provider [phone]- [phone] Encounter Details Date Type Department Care Team (Late st Contact Info) Description 08/19/2016 Historical Conversion [facility] Family Medicine [address] [place] [address] [place] [address] Cortney Chandra MD [address] [place] [address] Social History Tobacco Use Types Packs/Day Years Used Date Smoking Tobacco: Never Assessed Sex and Gender Information Value Date Recorded Sex Assigned at Not on file Gender Identity Female 01/16/2023 2:23 PM CDT Sexual Orientation Not on file documented as of this encounter Last Filed Vital Signs Vital Sign Reading Time Taken Comments Blood Pressure 132/78 08/19/2016 12:00 AM BRIDGE CARPENTER Pulse - - Temperature - - Respiratory Rate - - Oxygen Saturation - - Inhaled Oxygen Concentration - - Weight 86.2 kg (190 lb 0.6 oz) 08/19/2016 12:00 AM BRIDGE CARPENTER Height 163 cm (5' 4.17) 08/19/2016 12:00 AM BRIDGE CARPENTER Body Mass Index 32.44 08/19/2016 12:00 AM BRIDGE CARPENTER documented in this encounter Progress Notes * [...] back pain, mostly on left side. Derick INTERNET SALES CONSULTANT History of Present Illness Octavio developed left [...] TO 6 HOURS NEEDED; Therapy: 05Oct2012 to (Evaluate:53Mlk5628); Last Rx:85Swy5277 Ordered 3. Cyclobenzaprine HCl - 10 MG Oral Tablet; TAKE 1/2 TO 1 TABLET THREE TIMES DAILY; Therapy: 30Sep2010 to (Evaluate:37Agk8738) Requested for: 07Jul2016; Last Rx:07Jul2016 Ordered 4. Fluticasone Propionate 50 MCG/ACT Nasal Suspension; INSTILL 1 SPRAY DAILY IN EACH NOSTRIL; Therapy: 17Apr2009 to (Evaluate:15Dec2016) Requested for: 16Lbq5979; Last Rx:36Hak0918 Ordered 5. Hydrocortisone 2.5 % External Cream; APPLY SPARINGLY TO AFFECTED AREA(S) TWICE DAILY; Therapy: 20Jul2015 to (Evaluate:28Jul2016) Requested for: 55Zrl4115; Last Rx:48Slx7317 Ordered 6. Loratadine 10 MG Oral Tablet; TAKE 1 TABLET BY MOUTH DAILY NEEDED; Therapy: 43Kkj0133 to (Evaluate:12Sep2017) Requested for: 17Sep2016; Last Rx:17Sep2016 Ordered 7. Losartan Potassium 100 MG Oral Tablet; TAKE 1 TABLET BY MOUTH ONCE DAILY; Therapy: 31Lbv5435 to (Evaluate:18Jul2017) Requested for: 23Jul2016; Last Rx:23Jul2016 Ordered 8. MetFORMIN HCl ER 500 MG Oral Tablet Extended Release 24 Hour; TAKE 4 TABLETS( 2000MG) BY MOUTH ONCE DAILY; Therapy: 59Aju9798 to (Evaluate:25Jul2017) Requested for: 30Jul2016; Last Rx:30Jul2016 Ordered 9. One-Daily Multi Vitamins Oral Tablet; TAKE 1 TABLET DAILY; Therapy: (Recorded:23Jul2012) to Recorded 10. Simvastatin 20 MG Oral Tablet; TAKE ONE TABLET BY MOUTH DAILY; Therapy: 01Wzu9935 to (Evaluate:18Jul2017) Requested for: 23Jul2016; Last Rx:23Jul2016 Ordered 11. Vitamin D3 1000 UNIT Oral Tablet; takes 2 tablets daily; Therapy: (Recorded:56Ihe0076) to Recorded Allergies 1. Ultram TABS Vitals [...] Cortney Chandra M.D.; Dec 18 2016 8:57PM BRIDGE CARPENTER documented in this encounter H&P Notes * [...] Metabolic Panel; Status:Resulted - Requires Verification; Done: 35Gkx0906 10:48AM Controlled diabetes mellitus Hemoglobin A1C; Status:Resulted - Requires Verification; Done: 44Aqc3357 10:48AM Lipid Panel; Status:Resulted - Requires Verification; Done: 67Din0391 10:48AM Microalbumin (Random); Status:Resulted - Requires Verification; Done: 55Uvi8346 10:48AM Fatigue, Screening for thyroid disorder TSH; Status:Resulted - Requires Verification; Done: 11Lef3487 10:48AM Health Maintenance Prevnar 13 Intramuscular Suspension Visit for screening mammogram Mammo Screen Bilat - 2109; Status:Resulted - Requires Verification; Done: 57Weh1076 11:12AM Vitamin D deficiency Drawing Fee; Status:Complete; Done: 55Flz9778 Vitamin D Total [facility]; Status:Resulted - Requires Verification; Done: 94Hmm8346 10:48AM Reason For Visit Pt. presents today [...] Aspirin 81 MG TABS; ONE DAILY; Last Rx:91Alq3023 Ordered 2. Cheratussin AC 100-10 MG/5ML Oral Syrup; TAKE 10 ML EVERY 4 TO 6 HOURS NEEDED; Therapy: 05Oct2012 to (Evaluate:48Ysl4441); Last Rx:23Rnj2264 Ordered 3. Cyclobenzaprine HCl - 10 MG Oral Tablet; TAKE 1/2 TO 1 TABLET THREE TIMES DAILY; Therapy: 30Sep2010 to (Evaluate:61Ksg6902) Requested for: 07Jul2016; Last Rx:07Jul2016 Ordered 4. Fluticasone Propionate 50 MCG/ACT Nasal Suspension; INSTILL 1 SPRAY DAILY IN EACH NOSTRIL; Therapy: 17Apr2009 to (Evaluate:15Dec2016) Requested for: 64Haa8232; Last Rx:98Uwc3412 Ordered 5. Hydrocortisone 2.5 % External Cream; APPLY SPARINGLY TO AFFECTED AREA(S) TWICE DAILY; Therapy: 20Jul2015 to (Evaluate:28Jul2016) Requested for: 40Eym6331; Last Rx:03Eev7825 Ordered 6. Loratadine 10 MG Oral Tablet; TAKE 1 TABLET BY MOUTH DAILY NEEDED; Therapy: 06Tyt7689 to (Evaluate:01Tdv8188) Requested for: 36Bcl7805; Last Rx:79Qux7497 Ordered 7. Losartan Potassium 100 MG Oral Tablet; TAKE 1 TABLET BY MOUTH ONCE DAILY; Therapy: 23Ptl7834 to (Evaluate:18Jul2017) Requested for: 23Jul2016; Last Rx:23Jul2016 Ordered 8. MetFORMIN HCl ER 500 MG Oral Tablet Extended Release 24 Hour; TAKE 4 TABLETS( 2000MG) BY MOUTH ONCE DAILY; Therapy: 99Ibn1940 to (Evaluate:25Jul2017) Requested for: 30Jul2016; Last Rx:30Jul2016 Ordered 9. One-Daily Multi Vitamins Oral Tablet; TAKE 1 TABLET DAILY; Therapy: (Recorded:23Jul2012) to Recorded 10. Simvastatin 20 MG Oral Tablet; TAKE ONE TABLET BY MOUTH DAILY; Therapy: 26Zfo4954 to (Evaluate:18Jul2017) Requested for: 23Jul2016; Last Rx:23Jul2016 [...] affect. Results/Data Mammo Screen Bilat - 2109 53Ujg3912 11:12AM Cortney Chandra Test Name Result Flag [...] Author: MAME ISRAEL M.D. Basic Metabolic Panel 30Aib0830 10:48AM Cortney Chandra Test Name Result Flag [...] Dioxide 21 mmol/L L 22-30 Hemoglobin A1C 24Hxo7954 10:48AM Cortney Chandra Test Name Result Flag Reference Hemoglobin A1C 7.5 % H <5.7 Prediabetes 5.7% - 6.4% Diabetes >=6.5% Please note reference change as of 2015.. Estimated Average Glucose 169 mg/dl The eAG (estimated Average Glucose) is recommended by the [place] [employer] to assist with patient education during glucose monitoring. Lipid Panel 31Pnp5529 10:48AM Cortney Chandra Test Name Result Flag Reference Cholesterol 166 mg/dl < 200 Triglycerides 144 mg/dl < 150 HDL 56 mg/dl 40 or > LDL - Calculated 81 mg/dl < 130 *L/H Ratio 1.5 1.0-4.7 TSH 73Txc2452 10:48AM Cortney Chandra Test Name Result Flag Reference TSH 0.804 uIU/ml 0.30-4.70 Vitamin D Total [facility] 31Zrm3125 10:48AM Cortney Chandra Test Name Result Flag Reference Vitamin D Total - [facility] 43.1 ng/ml 30-100 Deficiency <10ng/mL Insufficiency 10-29 ng/mL Sufficiency 30-100 ng/mL Possible Toxicity >100 ng/mL Microalbumin (Random) 72Hsi4767 10:48AM Cortney Chandra Test Name Result Flag Reference Microalbumin, Raw 6.9 mg/L < 20 Microalbumin/Creat Ratio 4.4 ug/mg < 30 ug Microalb/mg UA Creat Creat, Urine 155.4 mg/dl Signatures Electronically signed by : Cortney Chandra M.D.; Aug 26 2016 8:22AM BRIDGE CARPENTER documented in this encounter Plan of Treatment Not on file documented as of this encounter Visit Diagnoses Not on filedocumented in this encounter Care Teams Temper Mill Roller Relationship Specialty Start Date End Date Unknown, Provider . HIRAM PEGUERO [id number] PCP - General 03/26/18 04/29/19 Cortney Chandra MD [address] [place] [address] PCP - General Family Medicine 04/30/19 Cortney Chandra MD [address] [place] [address] [place] [address] PCP Family Medicine 04/29/19 04/29/19 [facility] 03/30/23 Primary Eye Care 03/30/23 documented as of this encounter Additional Source Comments PLEASE NOTE: Replies to this message will not be received.[facility] and [facility]
--- OUTSIDE RECORDS SUMMARY | 2024-03-22 01:47 | XMS_ITS | Encounter Summary ---
Author Organization [facility] Address [address] [place] [address] Care Team Providers Care Recovery Auditor Name Role Phone Unknown, Provider Primary Care Provider Unavaila ble Cortney Chandra MD Unavailable [phone] Cortney Chandra MD Primary Care Provider [phone] Encounter Details Date Type Department Care Team (Late st Contact Info) Description 09/25/2017 Historical Conversion [facility] Family Medicine [address] [place] [address]. [place] [address] Cortney Chandra MD [address] [place] [address] Social History Tobacco Use Types [...] For Visit Pt. [facility]. [facility] History of Present Illness Sumaya is here for annual HCM exam along with Medicare wellness. She has a hx of type 2 DM, hyperlipidemia and HTN. She is doing well. She notes some join and back discomfort off and on but does notwant to do anything about it. She is still working casual as an [employer] and still enjoys this. Her asthma and [...] Aspirin 81 MG TABS; ONE DAILY; Last Rx:32Xrm8763 Ordered 2. Cheratussin AC 100-10 MG/5ML Oral Syrup; TAKE 10 ML EVERY 4 TO 6 HOURS NEEDED; Therapy: 05Oct2012 to (Evaluate:57Uzc0295); Last Rx:11Zty8408 Ordered 3. Cyclobenzaprine HCl - 10 MG Oral Tablet; TAKE 1/2 TO 1 TABLET THREE TIMES DAILY; Therapy: 30Sep2010 to (Evaluate:60Kjc2533) Requested for: 07Jul2016; Last Rx:07Jul2016 Ordered 4. Fluticasone Propionate 50 MCG/ACT Nasal Suspension; INSTILL 1 SPRAY DAILY IN EACH NOSTRIL; Therapy: 17Apr2009 to (Evaluate:15Dec2016) Requested for: 13Nrd7829; Last Rx:43Lgw1787 Ordered 5. Hydrocortisone 2.5 % External Cream; APPLY SPARINGLY TO AFFECTED AREA(S) TWICE DAILY; Therapy: 20Jul2015 to (Evaluate:70Cnv8209) Requested for: 17Jul2017; Last Rx:17Jul2017 Ordered 6. Loratadine 10 MG Oral Tablet; TAKE 1 TABLET BY MOUTH DAILY NEEDED; Therapy: 78Kac4123 to (Evaluate:12Sep2018) Requested for: 17Sep2017; Last Rx:17Sep2017 Ordered 7. Losartan Potassium 100 MG Oral Tablet; TAKE 1 TABLET BY MOUTH ONCE DAILY; Therapy: 51Ncx4609 to (Evaluate:12Jul2018) Requested for: 17Jul2017; Last Rx:17Jul2017 Ordered 8. MetFORMIN HCl ER 500 MG Oral Tablet Extended Release 24 Hour; TAKE 4 TABLETS( 2000MG) BY MOUTH ONCE DAILY; Therapy: 15Fmp9253 to (Evaluate:12Jul2018) Requested for: 17Jul2017; Last Rx:17Jul2017 Ordered 9. One-Daily Multi Vitamins Oral Tablet; TAKE 1 TABLET DAILY; Therapy: (Recorded:23Jul2012) to Recorded 10. Simvastatin 20 MG Oral Tablet; TAKE ONE TABLET BY MOUTH DAILY; Therapy: 72Maa5213 to (Evaluate:12Jul2018) Requested for: 17Jul2017; Last Rx:17Jul2017 Ordered 11. Ventolin HFA 108 (90 Base) MCG/ACT Inhalation Aerosol Solution; INHALE 1 TO 2 PUFFS EVERY 4 TO 6 HOURS NEEDED; Therapy: 91Qgi6101 to (Last Rx:47Pjg3396) Requested for: 80Ooc7896 Ordered 12. Vitamin D3 1000 UNIT Oral Tablet; takes 2 tablets daily; Therapy: (Recorded:34Acy6554) to Recorded Allergies 1. Ultram TABS Vitals [...] Normal sphincter tone, no masses. Genitourinary s/p QIANA/BSO so no pelvic done Normal external genitalia [...] Cortney Chandra M.D.; Oct 05 2017 8:00AM SUPPLIER QUALITY SPECIALIST documented in this encounter Plan of Treatment Not on file documented as of this encounter Visit Diagnoses Not on filedocumented in this encounter Care Teams Recovery Auditor Relationship Specialty Start Date End Date Unknown, Provider . HIRAM PEGUERO [id number] PCP - General 03/26/18 04/29/19 Cortney Chandra MD [address] [place] [address] PCP - General Family Medicine 04/30/19 Cortney Chandra MD [address] [place] [place] [address] PCP Family Medicine 04/29/19 04/29/19 [facility] 03/30/23 Primary Eye Care 03/30/23 documented as of this encounter Additional Source Comments PLEASE NOTE: Replies to this message will not be received.[facility] and [facility]
--- OUTSIDE RECORDS SUMMARY | 2024-03-22 01:47 | XMS_ITS | Encounter Summary ---
Author Organization [facility] Address [address] [place] [address] Care Team Providers Care Drop Wire Hanger Name Role Phone Unknown, Provider Primary Care Provider Unavaila Cortney Gomez MD Unavailable [phone] Cortney Chandra MD Primary Care Provider [phone]- [phone] Encounter Details Date Type Department Care Team (Late st Contact Info) Description 11/07/2014 Historical Conversion [facility] Family Medicine [address] [place] [address]. [place] [address] Cortney Chandra MD [address] [place] [address] Social History Tobacco Use Types [...] on filedocumented in this encounter Care Teams Drop Wire Hanger Relationship Specialty Start Date End Date Unknown, Provider . HIRAM PEGUERO [address] PCP - General 03/26/18 04/29/19 Cortney Chandra MD [address] [place] [address] PCP - General Family Medicine 04/30/19 Cortney Chandra MD [address] [place] [address] PCP Family Medicine 04/29/19 04/29/19 [facility] 03/30/23 Primary Eye Care 03/30/23 documented as of this encounter Additional Source Comments PLEASE NOTE: Replies to this message will not be received.[facility] and [facility]
== END 2024-03-18 14:28 | disposition home or self-care (01) ==
LOC: AMB 03-22 01:44
PROVIDERS: Visit Provider Family Medicine
DX: M25.512 Pain in left shoulder (principal); Z99.3 Dependence on wheelchair
CPT/HCPCS: A0425; A0428

== ENCOUNTER 2024-03-23 14:24 | Outpatient (REF) | payer SELFPAY ==
--- OUTSIDE RECORDS SUMMARY | 2024-03-23 14:27 | XMS_ITS | Encounter Summary ---
Author Organization [facility] Address [address] [place] [address] Care Team Providers Care Plasma Center Nurse Name Role Phone Cortney Chandra MD Primary Care Provider [phone] Encounter Details Date Type Department Care Team (Latest Contact Info) Description 03/08/2024 Patient Message [facility] [address] [place] [place], [place] [id number] Cortney Chandra MD [address] [place] [phone] Dx: Other hyperlipidemia Social History Tobacco Use Types Packs/Day Years Used Date Smoking Tobacco: Never Smokeless Tobacco: Never Alcohol Use Standard Drinks/Week Comments Never 0 (1 standard drink = 0.6 oz pur e alcohol) [facility] Utilities Answer Date Recorded In the past 12 months has [facility] [employer], [employer], oil, or water [employer] threatened to shut off services in your [...] How often do you attend chur or temple services? More than 4 times per year 08/15/2023 Do you belong to any clubs o r organizations such as hoahaoism groups, unions, fraternal or athletic groups, or [...] and heating? Not hard at all 08/15/2023 [facility] - [...] pollen documented in this encounter Care Teams Plasma Center Nurse Relationship Specialty Start Date End Date Cortney Chandra MD [address] [place] [address] PCP - General Family Medicine 04/30/19 [facility] 03/30/23 Primary Eye Care 03/30/23 documented as of this encounter Additional Source Comments PLEASE NOTE: Replies to this message will not be received.[facility] and [facility]
--- OUTSIDE RECORDS SUMMARY | 2024-03-23 14:27 | XMS_ITS | Encounter Summary ---
Author Organization [facility] Address [address] [place] [address] Care Team Providers Care Control Room Helper Name Role Phone Unknown, Provider Primary Care Provider Unavaila Cortney Gomez MD Unavailable [phone] Cortney Chandra MD Primary Care Provider [phone] Encounter Details Date Type Department Care Team (Late st Contact Info) Description 08/13/2018 Historical Conversion [facility] Family Medicine [address] [facility] [place] [address] Rosemayr Aquino APRN,[employer] [address] [place] [address] Social History Tobacco Use Types Packs/Day Years Used Date Smoking Tobacco: Never Assessed Sex and Gender Information Value Date Recorded Sex Assigned at Not on file Gender Identity Female 01/16/2023 2:23 PM CDT Sexual Orientation Not on file documented as of this encounter Progress Notes * Rosemary Aquino, CHALINO,[employer] - 08/13/2018 12:00 AM CST Assessment 1. [...] - Requires Verification,Retrospective By Protocol Authorization; Done: 22Bcg7839 02:29PM Reason For Visit Patient in with [...] Aspirin 81 MG TABS; ONE DAILY; Last Rx:95Yzc4131 Ordered 2. Cyclobenzaprine HCl - 10 MG Oral Tablet; TAKE 1/2 TO 1 TABLET THREE TIMES DAILY; Therapy: 30Sep2010 to (Evaluate:82Duz0159) Requested for: 07Jul2016; Last Rx:07Jul2016 Ordered 3. Fluticasone Propionate 50 MCG/ACT Nasal Suspension; INSTILL 1 SPRAY DAILY IN EACH NOSTRIL; Therapy: 17Apr2009 to (Evaluate:14Apr2018) Requested for: 16Oct2017; Last Rx:16Oct2017 Ordered 4. Hydrocortisone 2.5 % External Cream; APPLY SPARINGLY TO AFFECTED AREA(S) TWICE DAILY; Therapy: 20Jul2015 to (Evaluate:44Xfh8429) Requested for: 17Jul2017; Last Rx:17Jul2017 Ordered 5. Loratadine 10 MG Oral Tablet; TAKE 1 TABLET BY MOUTH DAILY NEEDED; Therapy: 57Okv7388 to (Evaluate:12Sep2018) Requested for: 17Sep2017; Last Rx:17Sep2017 Ordered 6. Losartan Potassium 100 MG Oral Tablet; TAKE 1 TABLET BY MOUTH ONCE DAILY; Therapy: 12Evm3475 to (Evaluate:10Jul2019) Requested for: 15Jul2018; Last Rx:15Jul2018 Ordered 7. metFORMIN HCl ER 500 MG Oral Tablet Extended Release 24 Hour; TAKE 4 TABLETS( 2000MG) BY MOUTH ONCE DAILY; Therapy: 60Fpr9677 to (Evaluate:18Jul2019) Requested for: 23Jul2018; Last Rx:23Jul2018 Ordered 8. One-Daily Multi Vitamins Oral Tablet; TAKE 1 TABLET DAILY; Therapy: (Recorded:23Jul2012) to Recorded 9. Pyridium 100 MG Oral Tablet; TAKE 1 TABLET 3 TIMES DAILY AFTER MEALS NEEDED; Therapy: 27Xdp4892 to (Last Rx:01Ame7280) Requested for: 14Jun2018 Ordered 10. Simvastatin 20 MG Oral Tablet; TAKE ONE TABLET BY MOUTH DAILY; Therapy: 78Nlf7369 to (Evaluate:10Jul2019) Requested for: 15Jul2018; Last Rx:15Jul2018 Ordered 11. Ventolin HFA 108 (90 Base) MCG/ACT Inhalation Aerosol Solution; INHALE 1 TO 2 PUFFS EVERY 4 TO 6 HOURS NEEDED; Therapy: 06Mar2017 to (Last Rx:50Hca4914) Requested for: 68Jgl5698 Ordered 12. Vitamin D3 1000 UNIT Oral Tablet; takes 2 tablets daily; Therapy: (Recorded:17Cgh9138) to Recorded Allergies 1. Ultram TABS Vitals [...] Urinalysis-Color YEL Urinalysis- Appearance CLOUD A Urinalysis-Sp Cisco 1.010 1.005-1.030 Urinalysis-pH 5.5 5.0-7.5 Urinalysis-Protein NEG NEGATIVE Urinalysis- Glucose NEG NEGATIVE Urinalysis-Ketone TRACE A NEGATIVE Urinalysis- Bilirub NEG NEGATIVE Urinalysis- Blood 3+ A NEGATIVE Urinalysis-Urobil 0.2 0.2-1.0 Urinalysis-Nitrite NEG NEGATIVE Urinalysis-Leuk 3+ A NEGATIVE Urinalysis-WBC TNTC A 0-4 Urinalysis-RBC TNTC A 0-4 Urinalysis-Epith FEW Urinalysis-Hyal Cast NEG Urinalysis- Bacteria MOD A UrinalysisA Urinalysis-Color YEL Urinalysis- Appearance CLOUD A Urinalysis-Sp Cisco 1.010 1.005-1.030 Urinalysis-pH 5.5 5.0-7.5 Urinalysis-Protein NEG NEGATIVE Urinalysis- Glucose NEG NEGATIVE Urinalysis-Ketone TRACE A NEGATIVE Urinalysis- Bilirub NEG NEGATIVE Urinalysis- Blood 3+ A NEGATIVE Urinalysis-Urobil 0.2 0.2-1.0 Urinalysis-Nitrite NEG NEGATIVE Urinalysis-Leuk 3+ A NEGATIVE Urinalysis-WBC TNTC A 0-4 Urinalysis-RBC TNTC A 0-4 Urinalysis-Epith FEW Urinalysis-Hyal Cast NEG Urinalysis- Bacteria MOD A UrinalysisA Signatures Electronically signed by : Rosemary Aquino RN [employer] RN,[employer]; Aug 13 2018 3:19PM PARAMEDICAL AIDE documented in this encounter Plan of Treatment Not on file documented as of this encounter Visit Diagnoses Not on filedocumented in this encounter Care Teams Control Room Helper Relationship Specialty Start Date End Date Unknown, Provider . HIRAM PEGUERO [id number] PCP - General 03/26/18 04/29/19 Cortney Chandra MD [address] [place] [address] PCP - General Family Medicine 04/30/19 Cortney Chandra MD [address] [place] [address] PCP Family Medicine 04/29/19 04/29/19 [facility] 03/30/23 Primary Eye Care 03/30/23 documented as of this encounter Additional Source Comments PLEASE NOTE: Replies to this message will not be received.[facility] and [facility]
--- OUTSIDE RECORDS SUMMARY | 2024-03-23 14:27 | XMS_ITS | Encounter Summary ---
Author Organization [employer] Address [address] [place] [address] Care Team Providers Care Co Supervisor Grounds And Landscape Name Role Phone Cortney Chandra MD Primary Care Provider [phone] Encounter Details Date Type Department Care Team (Late st Contact Info) Description 12/25/2023 Abstract [place] [id number] [place], [place] [address] Cortney Chandra MD [address] [place] [phone] Social History Tobacco Use Types Packs/Day Years Used Date Smoking Tobacco: Never Smokeless Tobacco: Never Alcohol Use Standard Drinks/Week Comments Never 0 (1 standard drink = 0.6 oz pur e alcohol) [facility] Utilities Answer Date Recorded In the past 12 months has [facility] [employer], gas, oil, or water Loc[employer] threatened to shut off services in your [...] How often do you attend chur or cheondoism services? More than 4 times per year 08/15/2023 Do you belong to any clubs o r organizations such as nondenominational groups, unions, fraternal or athletic groups, or [...] heating? Not hard at all 08/15/2023 [facility] - [...] place to sleep or slept in a group home (including now)? No 08/15/2023 Depression (PHQ-9) [...] EXAM - EXTERNAL (12/25/2023) RETINOPATHY Negative [facility] Cortney Chandra MD NURSING COMMUNICAT ION Performing Organization Address City/State/[facility] Co de Phone Number [facility] [address] [address], documented in this encounter Visit Diagnoses Not on filedocumented in this encounter Care Teams Co Supervisor Grounds And Landscape Relationship Specialty Start Date End Date Cortney Chandra MD [address] [place] [address] PCP - General Family Medicine 04/30/19 [facility] 03/30/23 Primary Eye Care 03/30/23 documented as of this encounter Additional Source Comments PLEASE NOTE: Replies to this message will not be received.[facility] and [facility]
--- OUTSIDE RECORDS SUMMARY | 2024-03-23 14:27 | XMS_ITS | Encounter Summary ---
Author Organization [employer] Address [address] [place] [address] Care Team Providers Care Supervisor Roving Name Role Phone Cortney Chandra MD Primary Care Provider [phone]- [phone] Reason for Visit * Reason Comments Refill Request Encounter Details Date Type Department Care Team (Late st Contact Info) Description 01/12/2024 Refill [facility] Medicine [address] [place], [place] [address] Cortney Chandra MD [address] [place] [address] Dx: Type 2 diabetes mellitus with stage 1 chronic kidney disease, without long-term current use of insulin (HCC) Social History Tobacco Use Types Packs/Day Years Used Date Smoking Tobacco: Never Smokeless Tobacco: Never Alcohol Use Standard Drinks/Week Comments Never 0 (1 standard drink = 0.6 oz pur e alcohol) [facility] Utilities Answer Date Recorded In the past 12 months has e [employer], gas, oil, or water [employer] threatened to shut off services in your [...] r organizations such as religion groups, unions, fraBergey's or athletic groups, or school groups? No [...] specified documented in this encounter Care Teams Supervisor Roving Relationship Specialty Start Date End Date Cortney Chandra MD [address] [place] [address] PCP - General Family Medicine 04/30/19 [facility] 03/30/23 Primary Eye Care 03/30/23 documented as of this encounter Additional Source Comments PLEASE NOTE: Replies to this message will not be received.[facility]
--- OUTSIDE RECORDS SUMMARY | 2024-03-23 14:27 | XMS_ITS | Encounter Summary ---
Author Organization [email or web address] Address [address] [place] [address] Care Team Providers Care Cardiology Consultant Name Role Phone Unknown, Provider Primary Care Provider Unavaila ble Cortney Chandra MD Unavailable [phone] Cortney Chandra MD Primary Care Provider [phone] Encounter Details Date Type Department Care Team (Late st Contact Info) Description 08/30/2018 Historical Conversion [facility] Family Medicine [address] [place] [address]. [place] [address] Cortney Chandra MD [address] [place] [address] Social History Tobacco Use Types Packs/Day Years Used Date Smoking Tobacco: Never Assessed Sex and Gender Information Value Date Recorded Sex Assigned at Not on file Gender Identity Female 01/16/2023 2:23 PM CDT Sexual Orientation Not on file documented as of this encounter Last Filed Vital Signs Vital Sign Reading Time Taken Comments Blood Pressure 124/76 08/30/2018 12:00 AM NURSE INSTRUCTOR Pulse - - Temperature - - Respiratory Rate - - Oxygen Saturation - - Inhaled Oxygen Concentration - - Weight 88.5 kg (195 lb 1.7 oz) 08/30/2018 12:00 AM NURSE INSTRUCTOR Height 162.5 cm (5' 3.98) 08/30/2018 12:[address] Body Mass Index 33.52 08/30/2018 12:00 AM NURSE INSTRUCTOR documented in this encounter Plan of Treatment Not on file documented as of this encounter Visit Diagnoses Not on filedocumented in this encounter Care Teams Cardiology Consultant Relationship Specialty Start Date End Date Unknown, Provider . HIRAM PEGUERO [address] PCP - General 03/26/18 04/29/19 Cortney Chandra MD [address] [place] [address] PCP - General Family Medicine 04/30/19 Cortney Chandra MD [address] [place] [place] [phone] PCP Family Medicine 04/29/19 04/29/19 [facility] 03/30/23 Primary Eye Care 03/30/23 documented as of this encounter Additional Source Comments PLEASE NOTE: Replies to this message will not be received.[facility] and [facility]
--- OUTSIDE RECORDS SUMMARY | 2024-03-23 14:27 | XMS_ITS | Encounter Summary ---
Author Organization [employer] Address [address] [place] [address] Care Team Providers Care Physicist Solid Earth Name Role Phone Cortney Chandra MD Primary Care Provider [phone] Reason for Visit * Reason Onset Date Comments Refill Request 02/19/2024 Encounter Details Date Type Department Care Team ([facility] st Contact Info) Description 02/19/2024 Refill [facility] Medicine [address] [place] [address] Cortney Chandra MD [address] [place] [address] Dx: Type 2 diabetes mellitus with stage 1 chronic kidney disease, without long-term current use of insulin (HCC) (Primary Dx) Social History Tobacco Use Types Packs/Day Years Used Date Smoking Tobacco: Never Smokeless Tobacco: Never Alcohol Use Standard Drinks/Week Comments Never 0 (1 standard drink = 0.6 oz pur e alcohol) [facility] Utilities Answer Date Recorded In the past [...] How often do you attend chur or holiness services? More than 4 times per year 08/15/2023 Do you belong to any clubs o r organizations such as mormon groups, unions, fraternal or athletic groups, or [...] and heating? Not hard at all 08/15/2023 [facility] of Occupat ional Health - [...] place to sleep or slept in a chcf (including now)? No 08/15/2023 Depression (PHQ-9) Answer [...] Primary documented in this encounter Care Teams Physicist Solid Earth Relationship Specialty Start Date End Date Cortney Chandra MD [address] [place] [phone] PCP - General Family Medicine 04/30/19 [facility] 03/30/23 Primary Eye Care 03/30/23 documented as of this encounter Additional Source Comments PLEASE NOTE: Replies to this message will not be received.[facility] and [facility]
--- OUTSIDE RECORDS SUMMARY | 2024-03-23 14:27 | XMS_ITS | Referral Summary ---
Author Organization [employer] Address [address] [place] [address] Care Team Providers Care Research And Development Chemist Name Role Phone Cortney Espinosa MD Primary Care Provider [phone]- [phone] Encounters Date Type Department Care Team Description 03/08/2024 Patient Message [id number] [place] [address] Cortney Espinosa MD Dx: Other hyperlipidemia 03/01/2024 Refill [id number] [address] Cortney Espinosa MD Dx: Essential hypertension (Primary Dx) 02/19/2024 [address]ill [phone] [place] [address] Cortney Espinosa MD Dx: Type 2 diabetes mellitus with stage 1 chronic kidney disease, without long-term current use of insulin (HCC) (Primary Dx) 01/12/2024 [address]ill [phone] [place] [place] [address] Cortney Espinosa MD Dx: Type 2 diabetes mellitus with stage 1 chronic kidney disease, without long-term current use of insulin (HCC) 01/05/2024 Refill [id number] [place] [address] Cortney Espinosa MD Dx: Rash (Primary Dx) 12/25/2023 Abstract [facility] [address] [place] [address] Cortney Espinosa MD from Last 3 Months Allergies Active Allergy Reactions Criticality Noted Date Comments Tramadol Nausea and / or Vomiting Low 04/29/2019 Medications Medication Sig Dispensed Refills Start Date End Date Status albuterol HFA (AKA: PROVENTIL/VENTOLIN ) 90 mcg/actuation inhalation HFA Aerosol Inhaler 1-2 Puffs by inhalation route every 4 hours if needed for shortness of breath. Active P-M-V-zinc-sod selenate-copper (AKA: OCUVITE, PROSIGHT) 5,000-60-30 wlwk-px-cbfg oral Tablet Take 1 Tablet by mouth [...] Active fluticasone propionate (FLONASE) 50 mcg/actuation nasal [place], SuspensionIndicati ons:Allergic rhinitis due to pollen, unspecified [...] drink = 0.6 oz pur e alcohol) [facility] Utilities Answer Date Recorded In the past [...] week 08/15/2023 How often do you attend [facility] or confucianist services? More than 4 times per year 08/15/2023 Do you belong to any clubs o r organizations such as alevism groups, unions, fraternal or athletic groups, or [...] and heating? Not hard at all 08/15/2023 [facility] of Occupat ional Health - Occupational Stress [...] Comments Blood Pressure 139/81 08/21/2023 9:47 AM OIL DIPPER Pulse 77 08/21/2023 9:47 AM OIL DIPPER Temperature 36.9 ??C (98.5 ??F) 08/21/2023 9:47 AM CS T Respiratory Rate 18 08/21/2023 9:47 AM OIL DIPPER Oxygen Saturation 96% 08/21/2023 9:47 AM OIL DIPPER Inhaled Oxygen Concentration - - Weight 73 kg (161 lb) 08/21/2023 9:47 AM OIL DIPPER Height 161.1 cm (5' 3.43) 03/30/2023 10:53 [...] GLYCOSYLATED HEMOGLOBIN, A1C Routine 09/10/2023 9:59 AM OIL DIPPER Type 2 diabetes mellitus with stage 1 [...] EYE EXAM - EXTERNAL (12/25/2023) RETINOPATHY Negative [facility] Cortney Espinosa MD NURSING COMMUNICAT ION Performing Organization Address City/State/[facility] [place] [address], * GLYCOSYLATED HEMOGLOBIN, A1C (09/10/2023 9:59 AM OIL DIPPER) Hemoglobin A1c 6.3 <=6.4 % 09/10/2023 10:27 AM OIL DIPPER [facility] Estimated Average Glucose 134 mg/dL 09/10/2023 10:27 AM [facility] Blood VENOUS BLOOD / Unknown Venipuncture / Unknown 09/10/2023 9:59 AM OIL DIPPER 09/10/2023 9:59 AM OIL DIPPER Cortney Espinosa MD LAB CHEMISTRY ORDE RABLES [facility] [address] [place] [address], [place] [phone] * MICROALBUMIN, RANDOM, URINE (03/30/2023 11:28 AM CDT) Microalbumin, Urine <12.0 mg/L 03/30/2023 1:46 PM CDT [facility] Creatinine, Urine 71.1 mg/dL 03/30/2023 1:46 PM CDT [facility] Microalbumin/Cr eatinine Ratio 03/30/2023 1:46 PM CDT [facility] Comment: Unable to calculate ratio due to decreased Microalbumin. Normal: <30 Microalbuminuria: 30-299 Clinical Microalbuminuria: >300 Urine SPOT URINE SPECIMEN / Unknown Non-blood Collection / Unknown 03/30/2023 11:28 AM CDT 03/30/2023 11:28 AM CDT Cortney Espinosa MD LAB URINE ORDERABL ES Performing Organization Address City/[facility]/ZIP Co de Phone Number [facility] [address] [place] [address], [place] [phone] * (ABNORMAL) LIPID PANEL (03/30/2023 11:28 AM CDT) Cholesterol 138 0 - 200 mg/dL 03/30/2023 1:39 PM CDT [facility] Triglycerides 86 0 - 150 mg/dL 03/30/2023 1:39 PM CDT [facility] Cholesterol, LDL (Calculated) 69 <=100 mg/dL 03/30/2023 1:39 PM CDT [facility] Cholesterol, HDL 52(L) 60 - 150 mg/dL 03/30/2023 1:39 PM CDT [facility] Cholesterol, vLDL 17 0 - 130 mg/dL 03/30/2023 1:39 PM CDT [facility] Fasting Status Yes 03/30/2023 1:39 PM CDT [facility] Blood VENOUS BLOOD / Unknown Venipuncture / Unknown 03/30/2023 11:28 AM CDT 03/30/2023 11:28 AM CDT Cortney Espinosa MD LAB CHEMISTRY ZACH GALAN [facility] Organization Address City/State/ZIP Co de Phone Number [facility] [address] [place] [address], * DEXA HIP AND SPINE (02/26/2021 10:38 [...] PM CDT) 03/01/2020 12:0 1 PM CDT [facility] - 03/01/2020 1:05 PM CDT Patient Name: SUMAYA GALVAN Procedure Date: 03/01/2020 Date of : 1950 Attending MD: BILLY ESPINOSA MD Referring MD CORTNEY ESPINOSA Additional Staff Jade ??Min, Photoresist Printer; Malini ??LUCIA Quiros Patient Profile - ??Refer [...] without bleeding Diagnosis Code(s)CPT(R) - 2019 copyright [employer]. All Rights Reserved. Diagnosis Code(s)The CPT codes, CCI edits and ICD codes generated are intended as suggestions and were generated based on input data. ??These codes are preliminary and upon safe and vault mechanic review may be revised to meet current compliance and payer requirements. ??The provider is responsible for the final determination of appropriate codes, and modifiers. Scope Withdrawal Time 00:12:06 Signature Name: Billy Espinosa Signature Statement:This document has been electronically signed. Note Initiated On:03/01/2020 Signature Date:03/01/2020 1:05 PM Cortney Espinosa MD GI PROCEDURES [facility] [address] [place] [address], from Last 3 Months or Most Recently Relevant to Health Maintenance Advance Directives Documents on File Type Date Recorded Patient Register Of Deeds Expl anation Physician Orders for Life-Sustaining Treatment (POLST) 05/18/2023 2:28 PM POLST POLST-S 04/03/2023 2:26 PM Advanced Directives 06/06/2020 1:42 PM CRS [facility] Health Care Directive-S 02/17/2005 1:42 PM Care Teams Research And Development Chemist Relationship Specialty Start Date End Date Cortney Espinosa MD [address] [place] [address] PCP - General Family Medicine 04/30/19 [facility] 03/30/23 Primary Eye Care 03/30/23 Additional Source Comments PLEASE NOTE: Replies to this message will not be received.[facility] and [facility]ending [facility]
--- OUTSIDE RECORDS SUMMARY | 2024-03-23 14:27 | XMS_ITS | Encounter Summary ---
Author Organization [email or web address] Address [address] [place] [address] Care Team Providers Care Paper Feeder Name Role Phone Cortney Chandra MD Primary Care Provider [phone]- [phone] Reason for Visit * Reason Comments Refill Request Encounter Details Date Type Department Care Team (Late st Contact Info) Description 03/01/2024 Refill [facility] Medicine [address] [place], [place] [id number] Cortney Chandra MD [address] [place] [address] Dx: Essential hypertension (Primary Dx) Social History Tobacco Use Types Packs/Day Years Used Date Smoking Tobacco: Never Smokeless Tobacco: Never Alcohol Use Standard Drinks/Week Comments Never 0 (1 standard drink = 0.6 oz pur e alcohol) [facility] Utilities Answer Date Recorded In the past 12 months has [facility] [place], gas, oil, or water [employer] threatened to shut off services in your [...] How often do you attend chur or scientology services? More than 4 times per year [...] and heating? Not hard at all 08/15/2023 [facility] of Occupat ional Health - Occupational [...] hypertension documented in this encounter Care Teams Paper Feeder Relationship Specialty Start Date End Date Cortney Chandra MD [address] [place] [address] PCP - General Family Medicine 04/30/19 [facility] 03/30/23 Primary Eye Care 03/30/23 documented as of this encounter Additional Source Comments PLEASE NOTE: Replies to this message will not be received.[facility] and [facility]
--- OUTSIDE RECORDS SUMMARY | 2024-03-23 14:27 | XMS_ITS | Encounter Summary ---
Author Organization [employer] Address [address] [place] [address] Care Team Providers Care Insurance Policy Clerk Name Role Phone Unknown, Provider Primary Care Provider Unavaila ble Cortney Chandra MD Unavailable [phone] Cortney Chandra MD Primary Care Provider [phone] Encounter Details Date Type Department Care Team (Late st Contact Info) Description 09/28/2018 Historical Conversion [facility] Family Medicine [address] [place] [address]. [place] [address] Cortney Chandra MD [address] [place] [address] Social History Tobacco Use Types [...] TABLET THREE TIMES DAILY; Therapy: 30Sep2010 to (Evaluate:[id number]) Requested for: 07Jul2016; Last Rx:07Jul2016 Ordered 3. Fluticasone Propionate 50 MCG/ACT Nasal Suspension; INSTILL 1 SPRAY DAILY IN EACH NOSTRIL; Therapy: 17Apr2009 to (Evaluate:14Apr2018) Requested for: 78Jxx7835; Last Rx:16Oct2017 Ordered 4. Hydrocortisone 2.5 % External Cream; APPLY SPARINGLY TO AFFECTED AREA(S) TWICE DAILY; Therapy: 20Jul2015 to (Evaluate:29Vuu5161) Requested for: 10Sep2018; Last Rx:10Sep2018 Ordered 5. Loratadine 10 MG Oral Tablet; TAKE 1 TABLET BY MOUTH DAILY NEEDED; Therapy: 98Nsk0812 to (Last Rx:10Sep2018) Requested for: 10Sep2018 Ordered 6. Losartan Potassium 100 MG Oral Tablet; TAKE 1 TABLET BY MOUTH ONCE DAILY; Therapy: 68Fmh1093 to (Evaluate:10Jul2019) Requested for: 15Jul2018; Last Rx:15Jul2018 Ordered 7. metFORMIN HCl ER 500 MG Oral Tablet Extended Release 24 Hour; TAKE 4 TABLETS( 2000MG) BY MOUTH ONCE DAILY; Therapy: 25Vzq1533 to (Evaluate:18Jul2019) Requested for: 23Jul2018; Last Rx:23Jul2018 Ordered 8. Pyridium 100 MG Oral Tablet; TAKE 1 TABLET 3 TIMES DAILY AFTER MEALS NEEDED; Therapy: 27Jyo7926 to (Last Rx:[id number]) Requested for: 19Rpz0207 Ordered 9. Simvastatin 20 MG Oral Tablet; TAKE ONE TABLET BY MOUTH DAILY; Therapy: 62Etv1797 to (Evaluate:10Jul2019) Requested for: 15Jul2018; Last Rx:15Jul2018 Ordered 10. Ventolin HFA 108 (90 Base) MCG/ACT Inhalation Aerosol Solution; INHALE 1 TO 2 PUFFS EVERY 4 TO 6 HOURS NEEDED; Therapy: 86Ych4848 to (Last Rx:[id number]) Requested for: 79Fne8762 Ordered 11. Vision Vitamins Oral Tablet; TAKE 1 TABLET DAILY; Therapy: 28Sep2018 to Recorded 12. Vitamin D3 1000 UNIT Oral Tablet; takes 2 tablets daily; Therapy: (Recorded:47Ixx2810) to Recorded Allergies 1. Ultram TABS Vitals [...] External ears and nose are normal to inspection.\R\s5Alaitrum membranes clear bilaterally.\R\b0Lips, teeth, and gum are normal, good dentition.\R\f0Hvehfpoodh is normal with no erythema, edema, exudate or lesions. Neck Neck is supple and symmetric. The trachea is midline with no masses.\R\g4Pzinty thyroid with no thyromegaly. Pulmonary Lungs are clear to auscultation. Cardiovascular Normal rate and rhythm, normal S1 and S2, no murmurs.\R\k6Wuqtwzy pulses are 2+ bilaterally without bruit.\R\c7Qplferk pulses are 2+ bilaterally.\R\i8Jnbly pulses are 2+ bilaterally.\R\b0No edema and/or varicosities. Chest Normal breasts with no dimpling or skin changes appreciated.\R\b0No breast or axillary massespalpated. Abdomen hemorrhoids noted, not acutely inflamed\R\b0Soft, non-tender with no masses.\R\b0No hepatosplenomegaly.\R\b0No hernia appreciated.\R\e4Grgcei sphincter tone, no masses. Genitourinary Normal external genitalia and vagina, no lesions appreciated.\R\z1Wxvpik meatus with no discharge.\R\b0The bladder is not distended, no tenderness.\R\u8Qprnxj is absent.\R\i0Kgjuae is ab sent.\R\m4Aprlqg/Parametria are normal, no masses or tenderness. Lymphatic No cervical lymphadenopathy.\R\b0No axillary lymphadenopathy.\R\b0No inguinal lymphadenopathy. Musculoskeletal Normal gait and station.\R\q5Awlpga muscle strength and tone. Skin Skin and subcutaneous tissue are normal without rashes or lesions.\R\r3Tsjzqa turgor. Neurologic Reflexes are 2+ and symmetric.\R\t4Cwdqkb tactile sensation with monofilament testing throughout boot feet. Capillary refill findings were normal bilaterally. Psychiatric Good eye contact and answers questions appropriately.\R\o6Cccnhmjpgea mood and affect. Signatures Electronically signed by : Cortney Chandra M.D.; Oct 11 2018 7:23AM VIOLIN TEACHER documented in this encounter Plan of Treatment Not on file documented as of this encounter Visit Diagnoses Not on filedocumented in this encounter Care Teams Insurance Policy Clerk Relationship Specialty Start Date End Date Unknown, Provider . HIRAM PEGUERO [id number] PCP - General 03/26/18 04/29/19 Cortney Chandra MD [address] [employer] [place] [address] PCP - General Family Medicine 04/30/19 Cortney Chandra MD [address] [employer] [place] [address] PCP Family Medicine 04/29/19 04/29/19 [facility] 03/30/23 Primary Eye Care 03/30/23 documented as of this encounter Additional Source Comments PLEASE NOTE: Replies to this message will not be received.[facility] and [facility]
--- OUTSIDE RECORDS SUMMARY | 2024-03-23 14:27 | XMS_ITS | Clinical Summary ---
Author Organization [employer] Address [address] [place] [address] Care Team Providers Care Belt Polisher Name Role Phone Cortney Espinosa MD Primary Care Provider [phone] Allergies Active Allergy Reactions Criticality Noted Date Comments Tramadol Nausea and / or Vomiting Low 04/29/2019 Medications Medication Sig Dispensed Refills Start Date End Date Status albuterol HFA (AKA: PROVENTIL/VENTOLIN ) 90 mcg/actuation inhalation HFA Aerosol Inhaler 1-2 Puffs by inhalation route every 4 hours if needed for shortness of breath. Active E-G-R-zinc-sod selenate-copper (AKA: OCUVITE, PROSIGHT) 5,000-60-30 uzpw-vm-zfji oral Tablet Take 1 Tablet by mouth [...] Active fluticasone propionate (FLONASE) 50 mcg/actuation nasal [place], SuspensionIndicati ons:Allergic rhinitis due to pollen, unspecified [...] Department Care Team Description 03/08/2024 Patient Message [id number] [place] [address] Cortney Espinosa MD Dx: Other hyperlipidemia 03/01/2024 Refill [address] [place] [address] Cortney Espinosa MD Dx: Essential hypertension (Primary Dx) 02/19/2024 Refill [address] [place] [address] Cortney Espinosa MD Dx: Type 2 diabetes mellitus with stage 1 chronic kidney disease, without long-term current use of insulin (HCC) (Primary Dx) 01/12/2024 Refill [address] [place] [address] Cortney Espinosa MD Dx: Type 2 diabetes mellitus with stage 1 chronic kidney disease, without long-term current use of insulin (HCC) 01/05/2024 Refill [address] [place] [address] Cortney Espinosa MD Dx: Rash (Primary Dx) 12/25/2023 Abstract [id number] [place] [address] Cortney Espinosa MD from Last 3 Months [...] oz pur e alcohol) [facility] Utilities Answer Date Recorded In the past 12 months has e [employer], gas, oil, or water [employer] threatened to shut off services in your [...] often do you attend chur ch or presybeterian services? More than 4 times per year 08/15/2023 Do you belong to any clubs o r organizations such as anabaptism groups, unions, fraternal or athletic groups, or [...] and heating? Not hard at all 08/15/2023 [facility] [place] of Occupat ional Health - Occupational Stress [...] Comments Blood Pressure 139/81 08/21/2023 9:47 AM SECURITY INCIDENT HANDLER Pulse 77 08/21/2023 9:47 AM SECURITY INCIDENT HANDLER Temperature 36.9 ??C (98.5 ??F) 08/21/2023 9:47 AM CS T Respiratory Rate 18 08/21/2023 9:47 AM SECURITY INCIDENT HANDLER Oxygen Saturation 96% 08/21/2023 9:47 AM SECURITY INCIDENT HANDLER Inhaled Oxygen Concentration - - Weight 73 kg (161 lb) 08/21/2023 9:47 AM SECURITY INCIDENT HANDLER Height 161.1 cm (5' 3.43) 03/30/2023 10:53 [...] GLYCOSYLATED HEMOGLOBIN, A1C Routine 09/10/2023 9:59 AM SECURITY INCIDENT HANDLER Type 2 diabetes mellitus with stage 1 [...] EXAM - EXTERNAL (12/25/2023) RETINOPATHY Negative [facility] Cortney Espinosa MD [place] [address], * GLYCOSYLATED HEMOGLOBIN, A1C (09/10/2023 9:59 AM SECURITY INCIDENT HANDLER) Hemoglobin A1c 6.3 <=6.4 % 09/10/2023 10:27 AM SECURITY INCIDENT HANDLER [facility] Estimated Average Glucose 134 mg/dL 09/10/2023 10:[address] [facility] Blood VENOUS BLOOD / Unknown Venipuncture / Unknown 09/10/2023 9:59 AM SECURITY INCIDENT HANDLER 09/10/2023 9:59 AM SECURITY INCIDENT HANDLER Cortney Espinosa MD LAB CHEMISTRY ORDE RABLES Performing Organization Address [facility]/ZIP Co de Phone Number [id number] [place] [address], [place] [phone] * MICROALBUMIN, RANDOM, URINE (03/30/2023 11:28 AM CDT) Microalbumin, Urine <12.0 mg/L 03/30/2023 1:46 PM CDT [facility] Creatinine, Urine 71.1 mg/dL 03/30/2023 1:46 PM CDT [facility] Microalbumin/Cr eatinine Ratio 03/30/2023 1:46 PM CDT [facility] Comment: Unable to calculate ratio due to decreased Microalbumin. Normal: <30 Microalbuminuria: 30-299 Clinical Microalbuminuria: >300 Urine SPOT URINE SPECIMEN / Unknown Non-blood Collection / Unknown 03/30/2023 11:28 AM CDT 03/30/2023 11:28 AM CDT Cortney Espinosa MD LAB URINE ORDERABL ES Performing Organization Address City/[facility]/ZIP Co de Phone Number [facility] [address] [place] [address], [place] [phone] * (ABNORMAL) LIPID PANEL (03/30/2023 11:28 AM CDT) Cholesterol 138 0 - 200 mg/dL 03/30/2023 1:39 PM CDT [facility] Triglycerides 86 0 - 150 mg/dL 03/30/2023 1:39 PM CDT [facility] Cholesterol, LDL (Calculated) 69 <=100 mg/dL 03/30/2023 1:39 PM CDT [facility] Cholesterol, HDL 52(L) 60 - 150 mg/dL 03/30/2023 1:39 PM CDT [facility] Cholesterol, vLDL 17 0 - 130 mg/dL 03/30/2023 1:39 PM CDT [facility] Fasting Status Yes 03/30/2023 1:39 PM CDT [facility] Blood VENOUS BLOOD / Unknown Venipuncture / Unknown 03/30/2023 11:28 AM CDT 03/30/2023 11:28 AM CDT Cortney Espinosa MD LAB CHEMISTRY ZACH GALAN [facility] Organization Address City/State/ZIP Co de Phone Number [facility] [address] [place] [address], * DEXA HIP AND SPINE (02/26/2021 10:38 [...] PM CDT) 03/01/2020 12:0 1 PM CDT [facility] - 03/01/2020 1:05 PM CDT Patient Name: SUMAYA GALVAN Procedure Date: 03/01/2020 Date of : 1950 Attending MD: BILLY ESPINOSA MD Referring MD CORTNEY ESPINOSA Additional Staff Jade ??Min, Open Hearth Helper; Malini ??LUCIA Quiros Patient Profile - ??Refer [...] without bleeding Diagnosis Code(s)CPT(R) - 2019 copyright [employer]. All Rights Reserved. Diagnosis Code(s)The CPT codes, CCI edits and ICD codes generated are intended as suggestions and were generated based on input data. ??These codes are preliminary and upon social work case manager review may be revised to meet current compliance and payer requirements. ??The provider is responsible for the final determination of appropriate codes, and modifiers. Scope Withdrawal Time 00:12:06 Signature Name: Billy Prateek Signature Statement:This document has been electronically signed. Note Initiated On:03/01/2020 Signature Date:03/01/2020 1:05 PM Cortney Espinosa MD GI PROCEDURES [facility] [address] [place], [place] [id number] [place] [address] from Last 3 Months or Most Recently Relevant to Health Maintenance Advance Directives Documents on File Type Date Recorded Patient Library Manager Expl anation Physician Orders for Life-Sustaining Treatment (POLST) 05/18/2023 2:28 PM POLST POLST-S 04/03/2023 2:26 PM Advanced Directives 06/06/2020 1:42 PM CRS [facility] Health Care Directive-S 02/17/2005 1:42 PM Care Teams Belt Polisher Relationship Specialty Start Date End Date Cortney Espinosa MD [address] [place] [address] PCP - General Family Medicine 04/30/19 [facility] 03/30/23 Primary Eye Care 03/30/23 Additional Source Comments PLEASE NOTE: Replies to this message will not be received.[facility]
--- OUTSIDE RECORDS SUMMARY | 2024-03-23 14:27 | XMS_ITS | Encounter Summary ---
Author Organization [employer] Address [address] [place] [address] Care Team Providers Care Supervisor Brew House Name Role Phone Unknown, Provider Primary Care Provider Unavaila ble Cortney Chandra MD Unavailable [phone] Cortney Chandra MD Primary Care Provider [phone] Encounter Details Date Type Department Care Team (Late st Contact Info) Description 08/30/2018 Historical Conversion [facility] Family Medicine [address] [place] [address] [place] [address] Cortney Chandra MD [address] [place] [address] Social History Tobacco Use Types [...] Plan Orders Fatigue Drawing Fee; Status:Complete; Done: [id number] Reason For Visit Pt. presents today for [...] Aspirin 81 MG TABS; ONE DAILY; Last Rx:86Inh7764 Ordered 2. Cyclobenzaprine HCl - 10 MG Oral Tablet; TAKE 1/2 TO 1 TABLET THREE TIMES DAILY; Therapy: 30Sep2010 to (Evaluate:73Gkf1253) Requested for: 07Jul2016; Last Rx:07Jul2016 Ordered 3. Fluticasone Propionate 50 MCG/ACT Nasal Suspension; INSTILL 1 SPRAY DAILY IN EACH NOSTRIL; Therapy: 17Apr2009 to (Evaluate:14Apr2018) Requested for: 16Oct2017; Last Rx:16Oct2017 Ordered 4. Hydrocortisone 2.5 % External Cream; APPLY SPARINGLY TO AFFECTED AREA(S) TWICE DAILY; Therapy: 20Jul2015 to (Evaluate:11Rdd7028) Requested for: 17Jul2017; Last Rx:17Jul2017 Ordered 5. Loratadine 10 MG Oral Tablet; TAKE 1 TABLET BY MOUTH DAILY NEEDED; Therapy: 90Xka5234 to (Evaluate:12Sep2018) Requested for: 17Sep2017; Last Rx:17Sep2017 Ordered 6. Losartan Potassium 100 MG Oral Tablet; TAKE 1 TABLET BY MOUTH ONCE DAILY; Therapy: 02Sbe3487 to (Evaluate:10Jul2019) Requested for: 15Jul2018; Last Rx:15Jul2018 Ordered 7. metFORMIN HCl ER 500 MG Oral Tablet Extended Release 24 Hour; TAKE 4 TABLETS( 2000MG) BY MOUTH ONCE DAILY; Therapy: 54Awf5381 to (Evaluate:18Jul2019) Requested for: 23Jul2018; Last Rx:23Jul2018 Ordered 8. One-Daily Multi Vitamins Oral Tablet; TAKE 1 TABLET DAILY; Therapy: (Recorded:23Jul2012) to Recorded 9. Pyridium 100 MG Oral Tablet; TAKE 1 TABLET 3 TIMES DAILY AFTER MEALS NEEDED; Therapy: 87Mfx1186 to (Last Rx:90Ocm2231) Requested for: 14Jun2018 Ordered 10. Simvastatin 20 MG Oral Tablet; TAKE ONE TABLET BY MOUTH DAILY; Therapy: 64Pfm0744 to (Evaluate:10Jul2019) Requested for: 15Jul2018; Last Rx:15Jul2018 Ordered 11. Ventolin HFA 108 (90 Base) MCG/ACT Inhalation Aerosol Solution; INHALE 1 TO 2 PUFFS EVERY 4 TO 6 HOURS NEEDED; Therapy: 06Mar2017 to (Last Rx:47Efe2211) Requested for: 41Sdb1269 Ordered 12. Vitamin D3 1000 UNIT Oral Tablet; takes 2 tablets daily; Therapy: (Recorded:26Mkf9955) to Recorded Allergies 1. Ultram TABS Vitals [...] Cortney Chandra M.D.; Sep 12 2018 4:16PM CREATIVE/ART DIRECTOR documented in this encounter Plan of Treatment Not on file documented as of this encounter Visit Diagnoses Not on filedocumented in this encounter Care Teams Supervisor Brew House Relationship Specialty Start Date End Date Unknown, Provider . [facility] [address] PCP - General 03/26/18 04/29/19 Cortney Chandra MD [address] [place] [address] PCP - General Family Medicine 04/30/19 Cortney Chandra MD [address] [place] [address] PCP Family Medicine 04/29/19 04/29/19 [facility] 03/30/23 Primary Eye Care 03/30/23 documented as of this encounter Additional Source Comments PLEASE NOTE: Replies to this message will not be received.[facility] and [facility]
--- OUTSIDE RECORDS SUMMARY | 2024-03-23 14:27 | XMS_ITS | Encounter Summary ---
Author Organization [employer] Address [address] [place] [address] Care Team Providers Care Dietary Services Manager Name Role Phone Cortney Chandra MD Primary Care Provider [phone] Reason for Visit * Reason Comments Refill Request Encounter Details Date Type Department Care Team (Late st Contact Info) Description 01/05/2024 Refill [facility] Medicine [address] [place], [place] [id number] Cortney Chandra MD [address] [place] [address] Dx: Rash (Primary Dx) Social History Tobacco Use Types Packs/Day Years Used Date Smoking Tobacco: Never Smokeless Tobacco: Never Alcohol Use Standard Drinks/Week Comments Never 0 (1 standard drink = 0.6 oz pur e alcohol) [facility] Utilities Answer Date Recorded In the past 12 months has [facility] [employer], gas, oil, or water [employer] threatened to shut off services in your [...] How often do you attend chur or religion services? More than 4 times per year 08/15/2023 Do you belong to any clubs o r organizations such as caodaism groups, unions, fraternal or athletic groups, or [...] eruption documented in this encounter Care Teams Dietary Services Manager Relationship Specialty Start Date End Date Cortney Chandra MD [address] [place] [address] PCP - General Family Medicine 04/30/19 [facility] 03/30/23 Primary Eye Care 9/25/23 documented as of this encounter Additional Source Comments PLEASE NOTE: Replies to this message will not be received.[facility] and [facility]
--- OUTSIDE RECORDS SUMMARY | 2024-03-23 14:28 | XMS_ITS | Encounter Summary ---
Author Organization [employer] Address [address] [place] [address] Care Team Providers Care Tire Bladder Maker Name Role Phone Unknown, Provider Primary Care Provider Unavaila ble Cortney Chandra MD Unavailable [phone] Cortney Chandra MD Primary Care Provider [phone] Encounter Details Date Type Department Care Team (Late st Contact Info) Description 11/18/2013 Historical Conversion [facility] Family Medicine [address] [place] [address] [place] [address] Cortney Chandra MD [address] [place] [address] Social History Tobacco Use Types [...] Encounter] Recorded by : Marya Lyons at 50Egl6835 10:47AM Blood Pressure 118 / 70, LUE, [...] filedocumented in this encounter Care Teams Tire Bladder Maker Relationship Specialty Start Date End Date Unknown, Provider . [place] [address] PCP - General 03/26/18 04/29/19 Cortney Chandra MD [address] [place] [address] PCP - General Family Medicine 04/30/19 Cortney Chandra MD [address] [place] [address] PCP Family Medicine 04/29/19 04/29/19 [facility] 03/30/23 Primary Eye Care 03/30/23 documented as of this encounter Additional Source Comments PLEASE NOTE: Replies to this message will not be received.[facility] and [facility]
--- OUTSIDE RECORDS SUMMARY | 2024-03-23 14:28 | XMS_ITS | Encounter Summary ---
Author Organization [email or web address] Address [address] [place] [address] Care Team Providers Care Statistical Developer Name Role Phone Unknown, Provider Primary Care Provider Unavaila ble Cortney Chandra MD Unavailable [phone] Cortney Chandra MD Primary Care Provider [phone] Encounter Details Date Type Department Care Team (Late st Contact Info) Description 08/10/2015 Historical Conversion [facility] Family Medicine [address] [place] [address] [place] [address] Cortney Chandra MD [address] [place] [address] Social History Tobacco Use Types [...] for c/o pain/tingling in Rt. arm. CSwanson UROLOGIC NURSE Past Medical History 1. Allergic rhinitis due [...] 81 MG Oral Tablet; ONE DAILY; Last Rx:21Irf5858 Ordered 2. Calcium 600/Vitamin D3 TABS; 1 [...] DAILY IN EACH NOSTRIL; Therapy: 17Apr2009 to (Evaluate:33Jqr8508) Requested for: 09May2014; Last Rx:09May2014 Ordered 6. Hydrocortisone 2.5 % External Cream; APPLY SPARINGLY TO AFFECTED AREA(S) TWICE DAILY; Therapy: 20Jul2015 to (Last Rx:20Jul2015) Requested for: 20Jul2015 Ordered 7. Loratadine 10 MG Oral Tablet; TAKE 1 TABLET BY MOUTH DAILY NEEDED; Therapy: 78Usd6410 to (Evaluate:39Kom9490) Requested for: 73Twj1829; Last Rx:34Dsd6570 Ordered 8. Losartan Potassium 100 MG Oral Tablet; TAKE 1 TABLET BY MOUTH ONCE DAILY; Therapy: 17Pbz8695 to (Evaluate:14Jul2016) Requested for: 20Jul2015; Last Rx:20Jul2015 Ordered 9. MetFORMIN HCl ER 500 MG Oral Tablet Extended Release 24 Hour; TAKE 4 TABLETS( 2000MG) BY MOUTH ONCE DAILY; Therapy: 11Rjs1466 to (Evaluate:14Jul2016) Requested for: 20Jul2015; Last Rx:20Jul2015 [...] TAKE ONE TABLET BY MOUTH DAILY; Therapy: 07Opy9290 to (Evaluate:14Jul2016) Requested for: 20Jul2015; Last Rx:20Jul2015 [...] Vital Signs [Data Includes: Current Encounter] Recorded: 73Lnj8639 02:56PM Blood Pressure 136 / 92, RUE, [...] traction would benefit Status: Active Requested for: 14Ggj6929 Care Summary provided. : Yes With: : [facility] PT/OT DEPT Related: : No Encounter: : No Phone Number to Contact Patient: : home [phone] to Provider, Practice or Agency: : PT at [facility] 2. PredniSONE 20 MG Oral Tablet; TAKE 2 TABLET DAILY Signatures Electronically signed by : Cortney Chandra M.D.; Aug 22 2015 9:54AM HAM BONER documented in this encounter Plan of Treatment Not on file documented as of this encounter Visit Diagnoses Not on filedocumented in this encounter Care Teams Statistical Developer Relationship Specialty Start Date End Date Unknown, Provider . [place] [address] PCP - General 03/26/18 04/29/19 Cortney Chandra MD [address] [place] [address] [place] [address] PCP - General Family Medicine 04/30/19 Cortney Chandra MD [address] [place] [address] [place] [place] [address] PCP Family Medicine 04/29/19 04/29/19 [facility] 03/30/23 Primary Eye Care 03/30/23 documented as of this encounter Additional Source Comments PLEASE NOTE: Replies to this message will not be received.[facility] and [facility]
--- OUTSIDE RECORDS SUMMARY | 2024-03-23 14:28 | XMS_ITS | Encounter Summary ---
Author Organization [employer] Address [address] [place] [address] Care Team Providers Care Rock Wool Applicator Name Role Phone Unknown, Provider Primary Care Provider Unavaila Cortney Gomez MD Unavailable [phone] Cortney Chandra MD Primary Care Provider [phone] Encounter Details Date Type Department Care Team (Late st Contact Info) Description 03/26/2018 Historical Conversion [facility] Family Medicine [address] [place] [address]. [place] [address] Angeles Hartman, CHALINO,MANUFACTURING ADVISOR [address] [place] [address] Social History Tobacco Use Types Packs/Day Years Used Date Smoking Tobacco: Never Assessed Sex and Gender Information Value Date Recorded Sex Assigned at Not on file Gender Identity Female 01/16/2023 2:23 PM CDT Sexual Orientation Not on file documented as of this encounter Progress Notes * Angeles Hartman, CHALINO,MANUFACTURING ADVISOR - 03/26/2018 12:00 AM CDT Assessment 1. [...] or if you almost fall.; Status:Complete; Done: 02Zyd9775 At your visit today we screened for [...] or seek medical attention immediately.; Status:Complete; Done: 44Plp1994 Dystrophic nail, Onychomycosis Fungus Culture (Skin.Hair,Nails ONLY); Status:Active; Requested for:49Ini8806; culture skin source : left thumb nail SocHx: Never smoked Never Smoked: Since tobacco use can have significant health risks, you are helping yourself and others stay healthy by never smoking.; Status:Complete; Done: 42Mdc0063 Reason For Visit Discoloration of finger nails [...] Aspirin 81 MG TABS; ONE DAILY; Last Rx:98Znw6920 Ordered 2. Cheratussin AC 100-10 MG/5ML Oral Syrup; TAKE 10 ML EVERY 4 TO 6 HOURS NEEDED; Therapy: 05Oct2012 to (Evaluate:91Lhm9747); Last Rx:80Ysc4423 Ordered 3. Cyclobenzaprine HCl - 10 MG Oral Tablet; TAKE 1/2 TO 1 TABLET THREE TIMES DAILY; Therapy: 30Sep2010 to (Evaluate:63Ktw7473) Requested for: 07Jul2016; Last Rx:07Jul2016 Ordered 4. Fluticasone Propionate 50 MCG/ACT Nasal Suspension; INSTILL 1 SPRAY DAILY IN EACH NOSTRIL; Therapy: 17Apr2009 to (Evaluate:14Apr2018) Requested for: 16Oct2017; Last Rx:16Oct2017 Ordered 5. Hydrocortisone 2.5 % External Cream; APPLY SPARINGLY TO AFFECTED AREA(S) TWICE DAILY; Therapy: 20Jul2015 to (Evaluate:67Oxr0578) Requested for: 17Jul2017; Last Rx:17Jul2017 Ordered 6. Loratadine 10 MG Oral Tablet; TAKE 1 TABLET BY MOUTH DAILY NEEDED; Therapy: 97Wfv0543 to (Evaluate:12Sep2018) Requested for: 17Sep2017; Last Rx:17Sep2017 Ordered 7. Losartan Potassium 100 MG Oral Tablet; TAKE 1 TABLET BY MOUTH ONCE DAILY; Therapy: 58Mpa2923 to (Evaluate:12Jul2018) Requested for: 17Jul2017; Last Rx:17Jul2017 Ordered 8. MetFORMIN HCl ER 500 MG Oral Tablet Extended Release 24 Hour; TAKE 4 TABLETS( 2000MG) BY MOUTH ONCE DAILY; Therapy: 02Qka7474 to (Evaluate:12Jul2018) Requested for: 17Jul2017; Last Rx:17Jul2017 Ordered 9. One-Daily Multi Vitamins Oral Tablet; TAKE 1 TABLET DAILY; Therapy: (Recorded:23Jul2012) to Recorded 10. Simvastatin 20 MG Oral Tablet; TAKE ONE TABLET BY MOUTH DAILY; Therapy: 67Kqj1797 to (Evaluate:12Jul2018) Requested for: 17Jul2017; Last Rx:17Jul2017 Ordered 11. Ventolin HFA 108 (90 Base) MCG/ACT Inhalation Aerosol Solution; INHALE 1 TO 2 PUFFS EVERY 4 TO 6 HOURS NEEDED; Therapy: 06Mar2017 to (Last Rx:06Mar2017) Requested for: 06Mar2017 Ordered 12. Vitamin D3 1000 UNIT Oral Tablet; takes 2 tablets daily; Therapy: (Recorded:63Zvt5376) to Recorded Allergies 1. Ultram TABS Vitals [...] other 8 fingers are covered with nail grenadian but the 2 thumbs show blackdiscoloration under [...] Electronically signed by : Angeles Hartman RN MANUFACTURING ADVISOR RN,MANUFACTURING ADVISOR; Mar 26 2018 1:29PM PLASTIC CARD GRADER CARDROOM documented in this encounter Plan of Treatment Not on file documented as of this encounter Visit Diagnoses Not on filedocumented in this encounter Care Teams Rock Wool Applicator Relationship Specialty Start Date End Date Unknown, Provider . [place] [address] PCP - General 03/26/18 04/29/19 Cortney Chandra MD [address] [place] [address] PCP - General Family Medicine 04/30/19 Cortney Chandra MD [address] [place] [address] PCP Family Medicine 04/29/19 04/29/19 [facility] 03/30/23 Primary Eye Care 03/30/23 documented as of this encounter Additional Source Comments PLEASE NOTE: Replies to this message will not be received.[facility] and [facility]
--- OUTSIDE RECORDS SUMMARY | 2024-03-23 14:28 | XMS_ITS | Encounter Summary ---
Author Organization [employer] Address [address] [place] [address] Care Team Providers Care Medical Malpractice Paralegal Name Role Phone Unknown, Provider Primary Care Provider Unavaila ble Cortney Chandra MD Unavailable [phone] Cortney Chandra MD Primary Care Provider [phone] Encounter Details Date Type Department Care Team (Late st Contact Info) Description 09/01/2014 Historical Conversion [facility] Family Medicine [address] [place] [address]. [place] [address] Cortney Chandra MD [address] [place] [address] Social History Tobacco Use Types Packs/Day Years Used Date Smoking Tobacco: Never Assessed Sex and Gender Information Value Date Recorded Sex Assigned at Not on file Gender Identity Female 01/16/2023 2:23 PM CDT Sexual Orientation Not on file documented as of this encounter Last Filed Vital Signs Vital Sign Reading Time Taken Comments Blood Pressure 130/80 09/01/2014 12:00 AM COMMERCIAL ARTIST LETTERING Pulse - - Temperature - - Respiratory Rate - - Oxygen Saturation - - Inhaled Oxygen Concentration - - Weight 85.7 kg (189 lb) 09/01/2014 12:00 AM COMMERCIAL ARTIST LETTERING Height 163.8 cm (5' 4.5) 09/01/2014 12:00 AM CS T Body Mass Index 31.94 09/01/2014 12:00 AM COMMERCIAL ARTIST LETTERING documented in this encounter Plan of Treatment Not on file documented as of this encounter Visit Diagnoses Not on filedocumented in this encounter Care Teams Medical Malpractice Paralegal Relationship Specialty Start Date End Date Unknown, Provider . [place] [address] PCP - General 03/26/18 04/29/19 Cortney Chandra MD [address] [place] [address] PCP - General Family Medicine 04/30/19 Cortney Chandra MD [address] [place] [address] PCP Family Medicine 04/29/19 04/29/19 [facility] 03/30/23 Primary Eye Care 03/30/23 documented as of this encounter Additional Source Comments PLEASE NOTE: Replies to this message will not be received.[facility]
--- OUTSIDE RECORDS SUMMARY | 2024-03-23 14:28 | XMS_ITS | Encounter Summary ---
Author Organization [employer] Address [address] [place] [address] Care Team Providers Care Farm Loan Representative Name Role Phone Unknown, Provider Primary Care Provider UnavailCortney Dye MD Unavailable [phone] Cortney Chandra MD Primary Care Provider [phone] Encounter Details Date Type Department Care Team (Late st Contact Info) Description 09/03/[address] [facility] Family Medicine [address] [facility] [place] [address] Rosemary Aquino APRN,SLOT MACHINE KEY PERSON [address] [place] [address] Social History Tobacco Use Types Packs/Day Years Used Date Smoking Tobacco: Never Assessed Sex and Gender Information Value Date Recorded Sex Assigned at Not on file Gender Identity Female 01/16/2023 2:23 PM CDT Sexual Orientation Not on file documented as of this encounter Progress Notes * Rosemary Aquino, CHALINO,SLOT MACHINE KEY PERSON - 09/03/2017 12:00 AM CST Assessment 1. [...] TO 6 HOURS NEEDED; Therapy: 05Oct2012 to (Evaluate:70Rly8238); Last Rx:08Aug2016 Ordered 3. Cyclobenzaprine HCl - 10 MG Oral Tablet; TAKE 1/2 TO 1 TABLET THREE TIMES DAILY; Therapy: 30Sep2010 to (Evaluate:25Ltz9560) Requested for: 07Jul2016; Last Rx:07Jul2016 Ordered 4. Fluticasone Propionate 50 MCG/ACT Nasal Suspension; INSTILL 1 SPRAY DAILY IN EACH NOSTRIL; Therapy: 17Apr2009 to (Evaluate:15Dec2016) Requested for: 80Xnu7118; Last Rx:73Noz1025 Ordered 5. Hydrocortisone 2.5 % External Cream; APPLY SPARINGLY TO AFFECTED AREA(S) TWICE DAILY; Therapy: 20Jul2015 to (Evaluate:09Vrm5022) Requested for: 17Jul2017; Last Rx:17Jul2017 Ordered 6. Loratadine 10 MG Oral Tablet; TAKE 1 TABLET BY MOUTH DAILY NEEDED; Therapy: 71Kpm3245 to (Evaluate:12Sep2017) Requested for: 17Sep2016; Last Rx:17Sep2016 Ordered 7. Losartan Potassium 100 MG Oral Tablet; TAKE 1 TABLET BY MOUTH ONCE DAILY; Therapy: 87Yli0593 to (Evaluate:12Jul2018) Requested for: 17Jul2017; Last Rx:17Jul2017 Ordered 8. MetFORMIN HCl ER 500 MG Oral Tablet Extended Release 24 Hour; TAKE 4 TABLETS( 2000MG) BY MOUTH ONCE DAILY; Therapy: 81Ywd8288 to (Evaluate:12Jul2018) Requested for: 17Jul2017; Last Rx:17Jul2017 Ordered 9. One-Daily Multi Vitamins Oral Tablet; TAKE 1 TABLET DAILY; Therapy: (Recorded:23Jul2012) to Recorded 10. Simvastatin 20 MG Oral Tablet; TAKE ONE TABLET BY MOUTH DAILY; Therapy: 74Pje6184 to (Evaluate:12Jul2018) Requested for: 17Jul2017; Last Rx:17Jul2017 [...] Electronically signed by : Rosemary Aquino RN SLOT MACHINE KEY PERSON RN,SLOT MACHINE KEY PERSON; Sep 03 2017 5:41PM BLOOD BANK TECHNOLOGIST Electronically signed by Rosemary Aquino, CARPENTER APPRENTICE,SLOT MACHINE KEY PERSON at 11/25/2018 5:37 PM CDT documented in this encounter Plan of Treatment Not on file documented as of this encounter Visit Diagnoses Not on filedocumented in this encounter Care Teams Farm Loan Representative Relationship Specialty Start Date End Date Unknown, Provider . HIRAM PEGUERO [id number] PCP - General 03/26/18 04/29/19 Cortney Chandra MD [address] [place] [address] [place] [place] [address] PCP - General Family Medicine 04/30/19 Cortney Chandra MD [address] [place] [address] [place] [place] [address] PCP Family Medicine 04/29/19 04/29/19 [facility] 03/30/23 Primary Eye Care 03/30/23 documented as of this encounter Additional Source Comments PLEASE NOTE: Replies to this message will not be received.[facility]
--- OUTSIDE RECORDS SUMMARY | 2024-03-23 14:28 | XMS_ITS | Encounter Summary ---
Author Organization [employer] Address [address] [place] [address] Care Team Providers Care Wool Shearing Supervisor Name Role Phone Unknown, Provider Primary Care Provider Unavaila ble Cortney Chandra MD Unavailable [phone] Cortney Chandra MD Primary Care Provider [phone] Encounter Details Date Type Department Care Team (Late st Contact Info) Description 07/20/2015 Historical Conversion [facility] Family Medicine [address] [place] [address]. [place] [address] Cortney Chandra MD [address] [place] [address] Social History Tobacco Use Types Packs/Day Years Used Date Smoking Tobacco: Never Assessed Sex and Gender Information Value Date Recorded Sex Assigned at Not on file Gender Identity Female 01/16/2023 2:23 PM CDT Sexual Orientation Not on file documented as of this encounter Last Filed Vital Signs Vital Sign Reading Time Taken Comments Blood Pressure 132/76 07/20/2015 12:00 AM FINISHER HAND Pulse - - Temperature - - Respiratory Rate - - Oxygen Saturation - - Inhaled Oxygen Concentration - - Weight 87.1 kg (192 lb 0.3 oz) 07/20/2015 12:00 AM FINISHER HAND Height 164 cm (5' 4.57) 07/20/2015 12:00 AM FINISHER HAND Body Mass Index 32.79 07/20/2015 12:00 AM FINISHER HAND documented in this encounter Plan of Treatment Not on file documented as of this encounter Visit Diagnoses Not on filedocumented in this encounter Care Teams Wool Shearing Supervisor Relationship Specialty Start Date End Date Unknown, Provider . HIRAM PEGUERO [id number] PCP - General 03/26/18 04/29/19 Cortney Chandra MD [address] [place] [address] PCP - General Family Medicine 04/30/19 Cortney Chandra MD [address] [place] [phone] PCP Family Medicine 04/29/19 04/29/19 [facility] 03/30/23 Primary Eye Care 03/30/23 documented as of this encounter Additional Source Comments PLEASE NOTE: Replies to this message will not be received.[facility] and [facility]
--- OUTSIDE RECORDS SUMMARY | 2024-03-23 14:28 | XMS_ITS | Encounter Summary ---
Author Organization [employer] Address [address] [place] [address] Care Team Providers Care Order Processing Clerk Name Role Phone Unknown, Provider Primary Care Provider UnavailCorteny Dye MD Unavailable [phone] Cortney Chandra MD Primary Care Provider [phone] Encounter Details Date Type Department Care Team (Late st Contact Info) Description 06/14/2018 Historical Conversion [facility] Family Medicine [address] [address] Rosemary Aquino, LANDSCAPE ARTIST,PARTS ADMINISTRATOR [address] [place] [address] Social History Tobacco Use Types Packs/Day Years Used Date Smoking Tobacco: Never Assessed Sex and Gender Information Value Date Recorded Sex Assigned at Not on file Gender Identity Female 01/16/2023 2:23 PM CDT Sexual Orientation Not on file documented as of this encounter Last Filed Vital Signs Vital Sign Reading Time Taken Comments Blood Pressure 144/88 06/14/2018 12:00 AM CAVALRY SCOUT Pulse - - Temperature - - Respiratory Rate - - Oxygen Saturation - - Inhaled Oxygen Concentration - - Weight 87 kg (191 lb 12.8 oz) 06/14/2018 12:00 A M CAVALRY SCOUT Height - - Body Mass Index 32.75 09/25/2017 12:00 AM CDT documented in this encounter Plan of Treatment Not on file documented as of this encounter Visit Diagnoses Not on filedocumented in this encounter Care Teams Order Processing Clerk Relationship Specialty Start Date End Date Unknown, Provider . HIRAM PEGUERO [id number] PCP - General 03/26/18 04/29/19 Cortney Chandra MD [address] [place] [phone] PCP - General Family Medicine 04/30/19 Cortney Chandra MD [address] [place] [address] PCP Family Medicine 04/29/19 04/29/19 [facility] 03/30/23 Primary Eye Care 03/30/23 documented as of this encounter Additional Source Comments PLEASE NOTE: Replies to this message will not be received.[facility] and [facility]
--- OUTSIDE RECORDS SUMMARY | 2024-03-23 14:28 | XMS_ITS | Encounter Summary ---
Author Organization [employer] Address [address] [place] [address] Care Team Providers Care Green Hide Inspector Name Role Phone Unknown, Provider Primary Care Provider Unavaila Cortney Gomez MD Unavailable [phone] Cortney Chandra MD Primary Care Provider [phone] Encounter Details Date Type Department Care Team (Late st Contact Info) Description 06/14/[address] [facility] Family Medicine [address] [facility] [place] [address] Rosemary Aquino APRN,BREAK AND LOAD OPERATOR [address] [place] [phone] Social History Tobacco Use Types Packs/Day Years Used Date Smoking Tobacco: Never Assessed Sex and Gender Information Value Date Recorded Sex Assigned at Not on file Gender Identity Female 01/16/2023 2:23 PM CDT Sexual Orientation Not on file documented as of this encounter Progress Notes * Rosemary Aquino, CHALINO,BREAK AND LOAD OPERATOR - 06/14/2018 12:00 AM CST Assessment 1. [...] UA - Culture if Indicated; Status:Complete; Done: 98Hjt5463 09:17AM Reason For Visit Patient in with [...] TABLET THREE TIMES DAILY; Therapy: 30Sep2010 to (Evaluate:68Uuh6805) Requested for: 07Jul2016; Last Rx:07Jul2016 Ordered 3. Fluticasone Propionate 50 MCG/ACT Nasal Suspension; INSTILL 1 SPRAY DAILY IN EACH NOSTRIL; Therapy: 17Apr2009 to (Evaluate:14Apr2018) Requested for: 16Oct2017; Last Rx:16Oct2017 Ordered 4. Hydrocortisone 2.5 % External Cream; APPLY SPARINGLY TO AFFECTED AREA(S) TWICE DAILY; Therapy: 20Jul2015 to (Evaluate:89Wpw3231) Requested for: 17Jul2017; Last Rx:17Jul2017 Ordered 5. Loratadine 10 MG Oral Tablet; TAKE 1 TABLET BY MOUTH DAILY NEEDED; Therapy: 54Uzb2352 to (Evaluate:12Sep2018) Requested for: 17Sep2017; Last Rx:17Sep2017 Ordered 6. Losartan Potassium 100 MG Oral Tablet; TAKE 1 TABLET BY MOUTH ONCE DAILY; Therapy: 57Clm5767 to (Evaluate:12Jul2018) Requested for: 17Jul2017; Last Rx:17Jul2017 Ordered 7. MetFORMIN HCl ER 500 MG Oral Tablet Extended Release 24 Hour; TAKE 4 TABLETS( 2000MG) BY MOUTH ONCE DAILY; Therapy: 75Gfs9255 to (Evaluate:12Jul2018) Requested for: 17Jul2017; Last Rx:17Jul2017 Ordered 8. One-Daily Multi Vitamins Oral Tablet; TAKE 1 TABLET DAILY; Therapy: (Recorded:23Jul2012) to Recorded 9. Simvastatin 20 MG Oral Tablet; TAKE ONE TABLET BY MOUTH DAILY; Therapy: 02Tgm7334 to (Evaluate:12Jul2018) Requested for: 17Jul2017; Last Rx:17Jul2017 Ordered 10. Ventolin HFA 108 (90 Base) MCG/ACT Inhalation Aerosol Solution; INHALE 1 TO 2 PUFFS EVERY 4 TO 6 HOURS NEEDED; Therapy: 06Mar2017 to (Last Rx:06Mar2017) Requested for: 06Mar2017 Ordered 11. Vitamin D3 1000 UNIT Oral Tablet; takes 2 tablets daily; Therapy: (Recorded:10Vgf2639) to Recorded Allergies 1. Ultram TABS Vitals [...] Electronically signed by : Rosemary Aquino, RN BREAK AND LOAD OPERATOR RN,BREAK AND LOAD OPERATOR; Jun 14 2018 12:24PM SNAILER Electronically signed by : Klever Nicole M.D.; Jul 15 2018 3:46PM SNAILER documented in this encounter Plan of Treatment Not on file documented as of this encounter Visit Diagnoses Not on filedocumented in this encounter Care Teams Green Hide Inspector Relationship Specialty Start Date End Date Unknown, Provider . HIRAM PEGUERO [address] PCP - General 03/26/18 04/29/19 Cortney Chandra MD [address] [place] [address] [place] [address] PCP - General Family Medicine 04/30/19 Cortney Chandra MD [address] [place] [phone] PCP Family Medicine 04/29/19 04/29/19 [facility] 03/30/23 Primary Eye Care 03/30/23 documented as of this encounter Additional Source Comments PLEASE NOTE: Replies to this message will not be received.[facility] and [facility]
--- OUTSIDE RECORDS SUMMARY | 2024-03-23 14:28 | XMS_ITS | Encounter Summary ---
Author Organization [employer] Address [address] [place] [address] Care Team Providers Care Closing Supervisor Name Role Phone Unknown, Provider Primary Care Provider Unavaila ble Cortney Chandra MD Unavailable [phone] Cortney Chandra MD Primary Care Provider [phone] Encounter Details Date Type Department Care Team (Late st Contact Info) Description 08/19/[address] [facility] Family Medicine [address] [place] [address] [place] [address] Cortney Chandra MD [address] [place] [address] Social History Tobacco Use Types Packs/Day Years Used Date Smoking Tobacco: Never Assessed Sex and Gender Information Value Date Recorded Sex Assigned at Not on file Gender Identity Female 01/16/2023 2:23 PM CDT Sexual Orientation Not on file documented as of this encounter Last Filed Vital Signs Vital Sign Reading Time Taken Comments Blood Pressure 132/78 08/19/2016 12:00 AM STICK FEEDER Pulse - - Temperature - - Respiratory Rate - - Oxygen Saturation - - Inhaled Oxygen Concentration - - Weight 86.2 kg (190 lb 0.6 oz) 08/19/2016 12:00 AM STICK FEEDER Height 163 cm (5' 4.17) 08/19/2016 12:00 AM STICK FEEDER Body Mass Index 32.44 08/19/2016 12:00 AM STICK FEEDER documented in this encounter Progress Notes * [...] back pain, mostly on left side. Derick RESIDENT SERVICE COORDINATOR History of Present Illness Octavio developed left [...] TO 6 HOURS NEEDED; Therapy: 05Oct2012 to (Evaluate:53Wjw1075); Last Rx:15Avu6462 Ordered 3. Cyclobenzaprine HCl - 10 MG Oral Tablet; TAKE 1/2 TO 1 TABLET THREE TIMES DAILY; Therapy: 30Sep2010 to (Evaluate:11Icp8500) Requested for: 07Jul2016; Last Rx:07Jul2016 Ordered 4. Fluticasone Propionate 50 MCG/ACT Nasal Suspension; INSTILL 1 SPRAY DAILY IN EACH NOSTRIL; Therapy: 17Apr2009 to (Evaluate:15Dec2016) Requested for: 45Htk7604; Last Rx:83Erd7109 Ordered 5. Hydrocortisone 2.5 % External Cream; APPLY SPARINGLY TO AFFECTED AREA(S) TWICE DAILY; Therapy: 20Jul2015 to (Evaluate:28Jul2016) Requested for: 18Ecs1517; Last Rx:43Mfo2405 Ordered 6. Loratadine 10 MG Oral Tablet; TAKE 1 TABLET BY MOUTH DAILY NEEDED; Therapy: 87Vay6467 to (Evaluate:12Sep2017) Requested for: 17Sep2016; Last Rx:17Sep2016 Ordered 7. Losartan Potassium 100 MG Oral Tablet; TAKE 1 TABLET BY MOUTH ONCE DAILY; Therapy: 70Evt6447 to (Evaluate:18Jul2017) Requested for: 23Jul2016; Last Rx:23Jul2016 Ordered 8. MetFORMIN HCl ER 500 MG Oral Tablet Extended Release 24 Hour; TAKE 4 TABLETS( 2000MG) BY MOUTH ONCE DAILY; Therapy: 31Cdp0296 to (Evaluate:25Jul2017) Requested for: 30Jul2016; Last Rx:30Jul2016 Ordered 9. One-Daily Multi Vitamins Oral Tablet; TAKE 1 TABLET DAILY; Therapy: (Recorded:23Jul2012) to Recorded 10. Simvastatin 20 MG Oral Tablet; TAKE ONE TABLET BY MOUTH DAILY; Therapy: 90Rez8053 to (Evaluate:18Jul2017) Requested for: 23Jul2016; Last Rx:23Jul2016 Ordered 11. Vitamin D3 1000 UNIT Oral Tablet; takes 2 tablets daily; Therapy: (Recorded:96Kps2966) to Recorded Allergies 1. Ultram TABS Vitals [...] Cortney Chandra M.D.; Dec 18 2016 8:57PM STICK FEEDER documented in this encounter H&P Notes * [...] Metabolic Panel; Status:Resulted - Requires Verification; Done: 26Kkg2506 10:48AM Controlled diabetes mellitus Hemoglobin A1C; Status:Resulted - Requires Verification; Done: 35Qvy6247 10:48AM Lipid Panel; Status:Resulted - Requires Verification; Done: 72Nsi5730 10:48AM Microalbumin (Random); Status:Resulted - Requires Verification; Done: 26Bvc0212 10:48AM Fatigue, Screening for thyroid disorder TSH; Status:Resulted - Requires Verification; Done: 33Cod7363 10:48AM Health Maintenance Prevnar 13 Intramuscular Suspension Visit for screening mammogram Mammo Screen Bilat - 2109; Status:Resulted - Requires Verification; Done: 72Ytm3727 11:12AM Vitamin D deficiency Drawing Fee; Status:Complete; Done: 23Wdt4828 Vitamin D Total [facility]; Status:Resulted - Requires Verification; Done: 17Vzy1804 10:48AM Reason For Visit Pt. presents today for medicare px. Derick MATTHEWN History of Present Illness Octavio is here for annual Medicare wellness exam. She also is due for her labs for diabetes. She is felling well but does c/o pain in her left upper arm since an injury at [facility] [place]. She slipped on the ice getting out [...] Aspirin 81 MG TABS; ONE DAILY; Last Rx:18Afw7722 Ordered 2. Cheratussin AC 100-10 MG/5ML Oral Syrup; TAKE 10 ML EVERY 4 TO 6 HOURS NEEDED; Therapy: 05Oct2012 to (Evaluate:96Fql6435); Last Rx:06Dqb9980 Ordered 3. Cyclobenzaprine HCl - 10 MG Oral Tablet; TAKE 1/2 TO 1 TABLET THREE TIMES DAILY; Therapy: 30Sep2010 to (Evaluate:85Fsg1589) Requested for: 07Jul2016; Last Rx:07Jul2016 Ordered 4. Fluticasone Propionate 50 MCG/ACT Nasal Suspension; INSTILL 1 SPRAY DAILY IN EACH NOSTRIL; Therapy: 17Apr2009 to (Evaluate:15Dec2016) Requested for: 97Pla5683; Last Rx:13Fjv2982 Ordered 5. Hydrocortisone 2.5 % External Cream; APPLY SPARINGLY TO AFFECTED AREA(S) TWICE DAILY; Therapy: 20Jul2015 to (Evaluate:28Jul2016) Requested for: 33Ghh5854; Last Rx:37Blq5967 Ordered 6. Loratadine 10 MG Oral Tablet; TAKE 1 TABLET BY MOUTH DAILY NEEDED; Therapy: 09Zyn1443 to (Evaluate:39Bde2758) Requested for: 26Uoi9136; Last Rx:80Rxg8611 Ordered 7. Losartan Potassium 100 MG Oral Tablet; TAKE 1 TABLET BY MOUTH ONCE DAILY; Therapy: 50Maa3993 to (Evaluate:18Jul2017) Requested for: 23Jul2016; Last Rx:23Jul2016 Ordered 8. MetFORMIN HCl ER 500 MG Oral Tablet Extended Release 24 Hour; TAKE 4 TABLETS( 2000MG) BY MOUTH ONCE DAILY; Therapy: 94Ook4071 to (Evaluate:25Jul2017) Requested for: 30Jul2016; Last Rx:30Jul2016 Ordered 9. One-Daily Multi Vitamins Oral Tablet; TAKE 1 TABLET DAILY; Therapy: (Recorded:23Jul2012) to Recorded 10. Simvastatin 20 MG Oral Tablet; TAKE ONE TABLET BY MOUTH DAILY; Therapy: 46Djy1075 to (Evaluate:18Jul2017) Requested for: 23Jul2016; Last Rx:23Jul2016 [...] affect. Results/Data Mammo Screen Bilat - 2109 30Pwd0577 11:12AM Cortney Chandra Test Name Result Flag [...] Author: MAME ISRAEL M.D. Basic Metabolic Panel 88Qbr7938 10:48AM Cortney Chandra Test Name Result Flag [...] Dioxide 21 mmol/L L 22-30 Hemoglobin A1C 89Qzp1205 10:48AM Cortney Chandra Test Name Result Flag Reference Hemoglobin A1C 7.5 % H <5.7 Prediabetes 5.7% - 6.4% Diabetes >=6.5% Please note reference change as of 2015.. Estimated Average Glucose 169 mg/dl The eAG (estimated Average Glucose) is recommended by the [place] [employer] to assist with patient education during glucose monitoring. Lipid Panel 94Czw4560 10:48AM Cortney Chandra Test Name Result Flag Reference Cholesterol 166 mg/dl < 200 Triglycerides 144 mg/dl < 150 HDL 56 mg/dl 40 or > LDL - Calculated 81 mg/dl < 130 *L/H Ratio 1.5 1.0-4.7 TSH 16Gmh2875 10:48AM Cortney Chandra Test Name Result Flag Reference TSH 0.804 uIU/ml 0.30-4.70 Vitamin D Total [facility] 81Cfn8167 10:48AM Cortney Chandra Test Name Result Flag Reference Vitamin D Total - [facility] 43.1 ng/ml 30-100 Deficiency <10ng/mL Insufficiency 10-29 ng/mL Sufficiency 30-100 ng/mL Possible Toxicity >100 ng/mL Microalbumin (Random) 00Bvs1975 10:48AM Cortney Chandra Test Name Result Flag Reference Microalbumin, Raw 6.9 mg/L < 20 Microalbumin/Creat Ratio 4.4 ug/mg < 30 ug Microalb/mg UA Creat Creat, Urine 155.4 mg/dl Signatures Electronically signed by : Cortney Chandra M.D.; Aug 26 2016 8:22AM STICK FEEDER documented in this encounter Plan of Treatment Not on file documented as of this encounter Visit Diagnoses Not on filedocumented in this encounter Care Teams Closing Supervisor Relationship Specialty Start Date End Date Unknown, Provider . HIRAM PEGUERO [address] PCP - General 03/26/18 04/29/19 Cortney Chandra MD [address] [place] [address] PCP - General Family Medicine 04/30/19 Cortney Chandra MD [address] [place] [place] [place] [phone] PCP Family Medicine 04/29/19 04/29/19 [facility] 03/30/23 Primary Eye Care 03/30/23 documented as of this encounter Additional Source Comments PLEASE NOTE: Replies to this message will not be received.[facility] and [facility]
--- OUTSIDE RECORDS SUMMARY | 2024-03-23 14:28 | XMS_ITS | Encounter Summary ---
Author Organization [employer] Address [address] [place] [address] Care Team Providers Care Commissary Superintendent Name Role Phone Unknown, Provider Primary Care Provider Unavaila ble Cortney Chandra MD Unavailable [phone] Corteny Chandra MD Primary Care Provider [phone] Encounter Details Date Type Department Care Team (Late st Contact Info) Description 09/01/2014 Historical Conversion [facility] Family Medicine [address] [place] [address]. 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 Aspirin 81 MG Oral [...] BY MOUTH NEEDED; Therapy: 30Sep2010 to (Last Rx:06Wid3037) Requested for: 59Soy0567 Ordered 5. Fluticasone Propionate 50 MCG/ACT Nasal Suspension; INSTILL 1 SPRAY DAILY IN EACH NOSTRIL; Therapy: 17Apr2009 to (Evaluate:95Ntp8710) Requested for: 09May2014; Last Rx:09May2014 Ordered 6. Hydrochlorothiazide 25 MG Oral Tablet; TAKE ONE TABLET EVERY MORNING; Therapy: 26May2008 to (Evaluate:04Yjp5960) Requested for: 62Xdx4293; Last Rx:39Euw2314 Ordered 7. Loratadine 10 MG Oral Tablet; TAKE 1 TABLET BY MOUTH DAILY NEEDED; Therapy: 82Eua1588 to (Evaluate:25Uzi0224) Requested for: 04Jun2014; Last Rx:04Jun2014 Ordered 8. Losartan Potassium 100 MG Oral Tablet; TAKE 1 TABLET BY MOUTH ONCE DAILY; Therapy: 19Hjo6087 to (Evaluate:73Ejc4440) Requested for: 13Feb2014; Last Rx:92Sng6989 Ordered 9. MetFORMIN HCl ER 500 MG Oral Tablet Extended Release 24 Hour; TAKE 4 TABLETS( 2000MG) BY MOUTH ONCE DAILY; Therapy: 69Oxt3060 to (Evaluate:37Zgg9425) Requested for: 26Xed4477; Last Rx:38Tcx6672 Ordered 10. One-Daily Multi Vitamins Oral Tablet; TAKE 1 TABLET DAILY; Therapy: (Recorded:23Jul2012) to Recorded 11. ProAir HFA 108 (90 Base) MCG/ACT Inhalation Aerosol Solution; INHALE 2 PUFFS EVERY 4 HOURS NEEDED FOR COUGHAND WHEEZE; Therapy: 26May2008 to (Last Rx:09May2014) Requested for: 09May2014 Ordered 12. Simvastatin 20 MG Oral Tablet; TAKE ONE TABLET BY MOUTH DAILY; Therapy: 08Alo4424 to (Evaluate:04Dec2014) Requested for: 09Dec2013; Last Rx:09Dec2013 [...] Vital Signs [Data Includes: Current Encounter] Recorded: 94Nys8280 08:19AM Blood Pressure 130 / 80, LUE, [...] Cortney Chandra M.D.; Sep 15 2014 10:14AM ONLINE CONTENT DEVELOPER documented in this encounter Plan of Treatment Not on file documented as of this encounter Visit Diagnoses Not on filedocumented in this encounter Care Teams Commissary Superintendent Relationship Specialty Start Date End Date Unknown, Provider . HIRAM PEGUERO [id number] PCP - General 03/26/18 04/29/19 Cortney Chandra MD [address] [place] [address] PCP - General Family Medicine 04/30/19 Cortney Chandra MD [address] [place] [address] PCP Family Medicine 04/29/19 04/29/19 [facility] 03/30/23 Primary Eye Care 03/30/23 documented as of this encounter Additional Source Comments PLEASE NOTE: Replies to this message will not be received.[facility]
--- OUTSIDE RECORDS SUMMARY | 2024-03-23 14:28 | XMS_ITS | Encounter Summary ---
Author Organization [employer] Address [address] [place] [address] Care Team Providers Care Senior Product Development Engineer Name Role Phone Unknown, Provider Primary Care Provider Unavaila Cortney Gomez MD Unavailable [phone] Cortney Chandra MD Primary Care Provider [phone] Encounter Details Date Type Department Care Team (Late st Contact Info) Description 11/07/2014 Historical Conversion [facility] Family Medicine [address] [place] [address]. [place] [address] Cortney Chandra MD [address] [place] [address] Social History Tobacco Use Types [...] filedocumented in this encounter Care Teams Senior Product Development Engineer Relationship Specialty Start Date End Date Unknown, Provider . HIRAM PEGUERO [id number] PCP - General 03/26/18 04/29/19 Cortney Chandra MD [address] [place] [phone] PCP - General Family Medicine 04/30/19 Cortney Chandra MD [address] [place] [address] PCP Family Medicine 04/29/19 04/29/19 [facility] 03/30/23 Primary Eye Care 03/30/23 documented as of this encounter Additional Source Comments PLEASE NOTE: Replies to this message will not be received.[facility] and [facility]
--- OUTSIDE RECORDS SUMMARY | 2024-03-23 14:28 | XMS_ITS | Encounter Summary ---
Author Organization [employer] Address [address] [place] [address] Care Team Providers Care Data Keyer Name Role Phone Unknown, Provider Primary Care Provider Unavaila Cortney Gomez MD Unavailable [phone] Cortney Chandra MD Primary Care Provider [phone] Encounter Details Date Type Department Care Team (Late st Contact Info) Description 06/16/2017 Historical Conversion [facility] Family Medicine [address] [place] [address] Rosalia Lopez MD Social History Tobacco Use Types Packs/Day Years Used Date Smoking Tobacco: Never Assessed Sex and Gender Information Value Date Recorded Sex Assigned at Not on file Gender Identity Female 01/16/2023 2:23 PM CDT Sexual Orientation Not on file documented as of this encounter Last Filed Vital Signs Vital Sign Reading Time Taken Comments Blood Pressure 136/81 06/16/2017 12:00 AM GEOGRAPHIC ANALYST Pulse - - Temperature - - Respiratory Rate - - Oxygen Saturation - - Inhaled Oxygen Concentration - - Weight 86.5 kg (190 lb 11.2 oz) 017 12:00 AM GEOGRAPHIC ANALYST Height - - Body Mass Index 32.56 08/19/2016 12:00 AM GEOGRAPHIC ANALYST documented in this encounter Progress Notes * Rosalia Lopez MD - 06/16/2017 12:00 AM CST DERMATOLOGY OCTAVIO GALVAN : 1950 HX: [id number] DOS: 06/16/2017 CHIEF COMPLAINT: History of squamous [...] lesion. Rosalia Lopez M.D./ cc: Cortney Chandra M.D./[facility] Electronically signed by:Rosalia Lopez M.D. Jun 23 2017 8:25AM GEOGRAPHIC ANALYST documented in this encounter Plan of Treatment Not on file documented as of this encounter Visit Diagnoses Not on filedocumented in this encounter Care Teams Data Keyer Relationship Specialty Start Date End Date Unknown, Provider . HIRAM PEGUERO [id number] PCP - General 03/26/18 04/29/19 Cortney Chandra MD [address] [place] [phone] PCP - General Family Medicine 04/30/19 Cortney Chandra MD [address] [place] [phone] PCP Family Medicine 04/29/19 04/29/19 [facility] 03/30/23 Primary Eye Care 03/30/23 documented as of this encounter Additional Source Comments PLEASE NOTE: Replies to this message will not be received.[facility] and [facility]
--- OUTSIDE RECORDS SUMMARY | 2024-03-23 14:28 | XMS_ITS | Encounter Summary ---
Author Organization [employer] Address [address] [place] [address] Care Team Providers Care Supervisor Stitching Department Name Role Phone Unknown, Provider Primary Care Provider UnavailCortney Dye MD Unavailable [phone] Cortney Chandra MD Primary Care Provider [phone] Encounter Details Date Type Department Care Team (Late st Contact Info) Description 12/25/2016 Historical Conversion [facility] Family Medicine [address] [place] [address]. [place] [address] Social History Tobacco Use Types Packs/Day Years [...] Body Mass Index 31.77 08/19/2016 12:00 AM ELECTRONICS ENGINEERING TECHNOLOGIST documented in this encounter Plan of Treatment Not on file documented as of this encounter Visit Diagnoses Not on filedocumented in this encounter Care Teams Supervisor Stitching Department Relationship Specialty Start Date End Date Unknown, [place] [address] PCP - General 03/26/18 04/29/19 Cortney Chandra MD [address] [place] [address] PCP - General Family Medicine 04/30/19 Cortney Chandra MD [address] [place] [phone] PCP Family Medicine 04/29/19 04/29/19 [facility] 03/30/23 Primary Eye Care 03/30/23 documented as of this encounter Additional Source Comments PLEASE NOTE: Replies to this message will not be received.[facility] and [facility]
--- OUTSIDE RECORDS SUMMARY | 2024-03-23 14:28 | XMS_ITS | Encounter Summary ---
Author Organization [employer] Address [address] [place] [address] Care Team Providers Care Factory Clerk Name Role Phone Unknown, Provider Primary Care Provider Unavaila Cortney Gomez MD Unavailable [phone] Cortney Chandra MD Primary Care Provider [phone] Encounter Details Date Type Department Care Team (Late st Contact Info) Description 03/07/2016 Historical Conversion [facility] Family Medicine [address] [place] [id number] Rosalia Lopez MD Social History Tobacco Use [...] CDT DERMATOLOGY OCTAVIO GALVAN : 1950 HX: [id number] DOS: 03/07/2016 CHIEF COMPLAINT: History of squamous [...] Rosalia Lopez M.D./la-7 cc: Cortney Chandra M.D./[facility] Electronically signed by:Rosalia Lopez M.D. Mar 13 2016 8:17AM SHACTOR HELPER documented in this encounter Plan of Treatment Not on file documented as of this encounter Visit Diagnoses Not on filedocumented in this encounter Care Teams Factory Clerk Relationship Specialty Start Date End Date Unknown, Provider . HIRAM PEGUERO [id number] PCP - General 03/26/18 04/29/19 Cortney Chandra MD [address] [place] [address] PCP - General Family Medicine 04/30/19 Cortney Chandra MD [address] [place] [address] PCP Family Medicine 04/29/19 04/29/19 [facility] 03/30/23 Primary Eye Care 03/30/23 documented as of this encounter Additional Source Comments PLEASE NOTE: Replies to this message will not be received.[facility]
--- OUTSIDE RECORDS SUMMARY | 2024-03-23 14:28 | XMS_ITS | Encounter Summary ---
Author Organization [employer] Address [address] [place] [address] Care Team Providers Care Marketing Analytics Specialist Name Role Phone Unknown, Provider Primary Care Provider Unavaila ble Cortney Chandra MD Unavailable [phone] Cortney Chandra MD Primary Care Provider [phone] Encounter Details Date Type Department Care Team (Late st Contact Info) Description 07/20/2015 Historical Conversion [facility] Family Medicine [address] [place] [address] [place] [address] Cortney Chandra MD [address] [place] [address] Social History Tobacco Use Types [...] 81 MG Oral Tablet; ONE DAILY; Last Rx:[id number] Ordered 2. Calcium 600/Vitamin D3 TABS; 1 [...] DAILY IN EACH NOSTRIL; Therapy: 17Apr2009 to (Evaluate:91Rsc6095) Requested for: 09May2014; Last Rx:09May2014 Ordered 6. Loratadine 10 MG Oral Tablet; TAKE 1 TABLET BY MOUTH DAILY NEEDED; Therapy: 42Vou7037 to (Evaluate:06Sut9042) Requested for: 92Fnz9474; Last Rx:[id number] Ordered 7. Losartan Potassium 100 MG Oral Tablet; TAKE 1 TABLET BY MOUTH ONCE DAILY; Therapy: 70Uko0260 to (Evaluate:86Ylv6906) Requested for: 13Feb2015; Last Rx:[id number] Ordered 8. MetFORMIN HCl ER 500 MG Oral Tablet Extended Release 24 Hour; TAKE 4 TABLETS( 2000MG) BY MOUTH ONCE DAILY; Therapy: 37Tvu4276 to (Evaluate:78Nvm8888) Requested for: 13Feb2015; Last Rx:13Feb2015 Ordered 9. One-Daily Multi Vitamins Oral Tablet; TAKE 1 TABLET DAILY; Therapy: (Recorded:23Jul2012) to Recorded 10. ProAir HFA 108 (90 Base) MCG/ACT Inhalation Aerosol Solution; INHALE 2 PUFFS EVERY 4 HOURS NEEDED FOR COUGHAND WHEEZE; Therapy: 26May2008 to (Last Rx:14May2015) Requested for: 14May2015 Ordered 11. Simvastatin 20 MG Oral Tablet; TAKE ONE TABLET BY MOUTH DAILY; Therapy: 83Fmy7466 to (Evaluate:11Jul2016) Requested for: 17Jul2015; Last Rx:17Jul2015 [...] Never smoked Review of Systems Female Complete [facility] [employer]: Constitutional: no fever and no chills. Eyes: [...] is a 65-year-old recently retired employee from [employer] that is here for her first Medicare [...] Cortney Chandra M.D.; Aug 07 2015 1:15PM CARDIAC CARE UNIT NURSE documented in this encounter Plan of Treatment Not on file documented as of this encounter Visit Diagnoses Not on filedocumented in this encounter Care Teams Marketing Analytics Specialist Relationship Specialty Start Date End Date Unknown, Provider . HIRAM PEGUERO [id number] PCP - General 03/26/18 04/29/19 Cortney Chandra MD [address] [place] [address] PCP - General Family Medicine 04/30/19 Cortney Chandra MD [address] [place] [address] PCP Family Medicine 04/29/19 04/29/19 [facility] 03/30/23 Primary Eye Care 03/30/23 documented as of this encounter Additional Source Comments PLEASE NOTE: Replies to this message will not be received.[facility]
--- OUTSIDE RECORDS SUMMARY | 2024-03-23 14:28 | XMS_ITS | Encounter Summary ---
Author Organization [employer] Address [address] [place] [address] Care Team Providers Care Capital Equipment Specialist Name Role Phone Unknown, Provider Primary Care Provider Unavaila ble Cortney Chandra MD Unavailable [phone] Cortney Chandra MD Primary Care Provider [phone] Encounter Details Date Type Department Care Team (Late st Contact Info) Description 09/25/2017 Historical Conversion [facility] Family Medicine [address] [place] [address]. [place] [address] Cortney Chandra MD [address] [place] [address] Social History Tobacco Use Types [...] For Visit Pt. presents [facility]. [facility] History of Present Illness Sumaya is here for annual HCM exam along with Medicare wellness. She has a hx of type 2 DM, hyperlipidemia and HTN. She is doing well. She notes some join and back discomfort off and on but does notwant to do anything about it. 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 Her asthma and [...] Aspirin 81 MG TABS; ONE DAILY; Last Rx:[id number] Ordered 2. Cheratussin AC 100-10 MG/5ML Oral Syrup; TAKE 10 ML EVERY 4 TO 6 HOURS NEEDED; Therapy: 05Oct2012 to (Evaluate:32Ecw5972); Last Rx:49Gjl7575 Ordered 3. Cyclobenzaprine HCl - 10 MG Oral Tablet; TAKE 1/2 TO 1 TABLET THREE TIMES DAILY; Therapy: 30Sep2010 to (Evaluate:73Xtg9364) Requested for: 07Jul2016; Last Rx:07Jul2016 Ordered 4. Fluticasone Propionate 50 MCG/ACT Nasal Suspension; INSTILL 1 SPRAY DAILY IN EACH NOSTRIL; Therapy: 17Apr2009 to (Evaluate:15Dec2016) Requested for: 18Dqm9136; Last Rx:28Zrk2457 Ordered 5. Hydrocortisone 2.5 % External Cream; APPLY SPARINGLY TO AFFECTED AREA(S) TWICE DAILY; Therapy: 20Jul2015 to (Evaluate:90Pua4784) Requested for: 17Jul2017; Last Rx:17Jul2017 Ordered 6. Loratadine 10 MG Oral Tablet; TAKE 1 TABLET BY MOUTH DAILY NEEDED; Therapy: 21Hbb2536 to (Evaluate:12Sep2018) Requested for: 17Sep2017; Last Rx:17Sep2017 Ordered 7. Losartan Potassium 100 MG Oral Tablet; TAKE 1 TABLET BY MOUTH ONCE DAILY; Therapy: 60Hhg2277 to (Evaluate:12Jul2018) Requested for: 17Jul2017; Last Rx:17Jul2017 Ordered 8. MetFORMIN HCl ER 500 MG Oral Tablet Extended Release 24 Hour; TAKE 4 TABLETS( 2000MG) BY MOUTH ONCE DAILY; Therapy: 11Ktj4857 to (Evaluate:12Jul2018) Requested for: 17Jul2017; Last Rx:17Jul2017 Ordered 9. One-Daily Multi Vitamins Oral Tablet; TAKE 1 TABLET DAILY; Therapy: (Recorded:23Jul2012) to Recorded 10. Simvastatin 20 MG Oral Tablet; TAKE ONE TABLET BY MOUTH DAILY; Therapy: 69Bpx3290 to (Evaluate:12Jul2018) Requested for: 17Jul2017; Last Rx:17Jul2017 Ordered 11. Ventolin HFA 108 (90 Base) MCG/ACT Inhalation Aerosol Solution; INHALE 1 TO 2 PUFFS EVERY 4 TO 6 HOURS NEEDED; Therapy: 06Gun5518 to (Last Rx:14Aax9526) Requested for: 69Kfx4484 Ordered 12. Vitamin D3 1000 UNIT Oral Tablet; takes 2 tablets daily; Therapy: (Recorded:31Hzc8751) to Recorded Allergies 1. Ultram TABS Vitals [...] Cortney Chandra M.D.; Oct 05 2017 8:00AM TREATMENT SPECIALIST documented in this encounter Plan of Treatment Not on file documented as of this encounter Visit Diagnoses Not on filedocumented in this encounter Care Teams Capital Equipment Specialist Relationship Specialty Start Date End Date Unknown, Provider . HIRAM PEGUERO [address] PCP - General 03/26/18 04/29/19 Cortney Chandra MD [address] [place] [address] PCP - General Family Medicine 04/30/19 Cortney Chandra MD [address] [place] [place] [address] PCP Family Medicine 04/29/19 04/29/19 [facility] 03/30/23 Primary Eye Care 03/30/23 documented as of this encounter Additional Source Comments PLEASE NOTE: Replies to this message will not be received.[facility] and [facility]
[2024-03-23 14:40] LABS: Appearance Urine Clear (Clear); Bilirubin Urine Negative (Negative); Blood Urine Negative (Negative); Color Urine Yellow (Yellow); Glucose Urine Negative (Negative); Ketones Urine Negative (Negative); Leukocyte Esterase Urine Negative (Negative); Nitrite Urine Negative (Negative); Protein Urine Negative (Negative); Specific Gravity Urine 1.025 (1.000-1.030); Urobilinogen Urine 0.2 (0.2-1.0)
[2024-03-23 14:56] LABS: Bacteria Urine Few; RBC Urine 0-2 (0-2); Squamous Epithelial Cell Urine Few (None-Few); WBC Urine 0-2 (0-5)
== END 2024-03-23 14:25 | disposition home or self-care (01) ==
LOC: NPINS 14:24
PROVIDERS: Visit Provider Nurse Practitioner Gerontology
DX: N39.3 Stress incontinence (female) (male) (principal)
CPT/HCPCS: 81001; 87086

== ENCOUNTER 2024-04-05 09:30 | Outpatient (CLI) | payer MEDICARE, SELFPAY ==
--- OUTSIDE RECORDS SUMMARY | 2024-04-05 09:33 | XMS_ITS | Encounter Summary ---
Author Organization [employer] Address [address] [place] [address] Care Team Providers Care Sap Gatherer Name Role Phone Cortney Chandra MD Primary Care Provider [phone] Reason for Visit * Reason Onset Date Comments Questions 04/05/2024 Encounter Details Date Type Department Care Team (Late st Contact Info) Description 04/05/2024 Telephone [place] [id number] [facility] [place], [place] [id number] Ingrid George RN Chief Comp: Questions Social History Tobacco Use Types Packs/Day Years Used Date Smoking Tobacco: Never Smokeless Tobacco: Never Alcohol Use Standard Drinks/Week Comments Never 0 (1 standard drink = 0.6 oz pur e alcohol) [facility] Utilities Answer Date Recorded In the [...] often do you attend chur ch or taoism services? More than 4 times per year 08/15/2023 Do you belong to any clubs o r organizations such as quaker groups, unions, fraternal or athletic groups, or [...] and heating? Not hard at all 08/15/2023 [facility] - [...] encounter Miscellaneous Notes * Telephone Encounter - Ingrid George RN - 04/05/2024 8:38 AM CDT Called Fermin, No answer. Left a voicemail to return call. * Telephone Encounter - Ingrid George RN - 04/05/2024 8:38 AM CDT ----- Message from [employer] sent at 04/04/2024 4:28 PM CDT ----- Regarding: Call Back Fermin [facility]. Would like a call back at . Aware you will be in the office on Thursday. Thank you. documented in this encounter Plan of Treatment Not on file documented as of this encounter Visit Diagnoses Not on filedocumented in this encounter Care Teams Sap Gatherer Relationship Specialty Start Date End Date Cortney Chandra MD [address] [place] [address] PCP - General Family Medicine 04/30/19 [facility] 03/30/23 Primary Eye Care 03/30/23 documented as of this encounter Additional Source Comments PLEASE NOTE: Replies to this message will not be received.[facility] and [facility]
--- OUTSIDE RECORDS SUMMARY | 2024-04-05 09:33 | XMS_ITS | Clinical Summary ---
Author Organization [employer] Address [address] [place] [address] Care Team Providers Care Cake Icer And Packer Name Role Phone Cortney Espinosa MD Primary Care Provider [phone]- [phone] Allergies Active Allergy Reactions Criticality Noted Date Comments Tramadol Nausea and / or Vomiting Low 04/29/2019 Medications Medication Sig Dispensed Refills Start Date End Date Status albuterol HFA (AKA: PROVENTIL/VENTOLIN) 90 mcg/actuation inhalation HFA Aerosol Inhaler 1-2 Puffs by inhalation route every 4 hours if needed for shortness of breath. Active W-A-R-zinc-sod selenate-copper (AKA: OCUVITE, PROSIGHT) 5,000-60-30 epmr-cd-fdhm oral Tablet Take 1 Tablet by mouth in the morning. 0 07/22/2019 Active omega-3 fatty acids 1,000 mg oral Cap Take 1 Capsule (1,000 mg) by mouth in the morning. Active ascorbic acid, vitamin C, 500 mg oral tablet Take 1 Tablet (500 mg) by mouth in the morning. Active psyllium (METAMUCIL) oral Powder Take 5 g by mouth in the morning. Active fluticasone propionate (FLONASE) 50 mcg/actuation nasal [place], SuspensionIndicatio ns:Allergic rhinitis due to pollen, unspecified seasonality INSTILL 1 SPRAY DAILY IN EACH NOSTRIL 16 g 5 08/05/2022 Active alendronate (FOSAMAX) 70 mg oral TabletIndications:P ostmenopausal osteoporosis TAKE ONE TABLET BY MOUTH FIRST THING IN THE MORNING ONCE WEEKLY WITH A FULL GLASS OF WATER - DO NOT EAT, DRINK OR LIE DOWN FOR 30 MINUTES AFTER TAKING 12 Tablet 3 02/10/2023 Active cholecalciferol, vitamin D3, (VITAMIN D3) 2,000 [...] Active escitalopram oxalate (LEXAPRO) 20 mg oral TabletIndications:A djustment disorder with depressed mood Take 1 Tablet (20 mg) by mouth in the morning. 90 Tablet 3 08/21/2023 5 Active diclofenac sodium (VOLTAREN) 75 mg oral Tablet, Delayed Release (E.C.)Indications:L umbar back pain TAKE ONE TABLET BY MOUTH EVERY MORNING 90 Tablet 1 11/12/2023 Active PROCTO-MED HC 2.5 % topical cream with perineal applicatorIndicatio ns:Rash APPLY TOPICALLY TO AFFECTED AREA(S) TWO TIMES DAILY 28 g 2 01/05/2024 Active sulfamethoxazole-tr imethoprim (BACTRIM) 400-80 mg oral TabletIndications:R ecurrent UTI TAKE ONE TABLET BY MOUTH EVERY DAY 90 Tablet 1 01/12/2024 Active metFORMIN XR (GLUCOPHAGE XR) 500 mg oral Tablet Sustained Release 24HRIndications:Typ e 2 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 360 Tablet 2 02/19/2024 Active losartan (COZAAR) 100 mg oral TabletIndications:E ssential hypertension TAKE ONE TABLET BY MOUTH EVERY DAY 90 Tablet 03/01/2024 Active simvastatin (ZOCOR) 20 mg oral TabletIndications:O ther hyperlipidemia Take 1 Tablet (20 mg) by mouth in the morning. 90 Tablet 3 03/09/2024 Active loratadine (CLARITIN) 10 mg oral TabletIndications:N on-seasonal allergic rhinitis due to pollen Take 1 Tablet (10 mg) by mouth in the morning. 90 Tablet 3 03/09/2024 Active simvastatin (ZOCOR) 20 mg oral TabletIndications:O ther hyperlipidemia TAKE ONE TABLET BY MOUTH EVERY DAY 90 Tablet 3 03/19/2023 4 Discontinue d(Reorder) loratadine (CLARITIN) 10 mg oral TabletIndications:N on-seasonal allergic rhinitis due to pollen TAKE ONE TABLET BY MOUTH EVERY DAY 90 Tablet 3 03/26/2023 4 Discontinue d(Reorder) Active Problems Problem Noted Date Diagnosed Date Vitamin D deficiency Solar elastosis Infection due to yeast Controlled diabetes mellitus Combined systolic and diastolic hypertension Allergic rhinitis due to pollen Encounters Date Type Department Care Team Description 04/05/2024 Telephone [place] [phone] [place] [address] Ingrid George RN Chief Comp: Questions 03/08/2024 Patient Message [place] [phone] [place] [address] Cortney Espinosa MD Dx: Other hyperlipidemia 03/01/2024 Refill [place] [phone] [place] [address] Cortney Espinosa MD Dx: Essential hypertension (Primary Dx) 02/19/2024 Refill [place] [address] [address] [place] [address] Cortney Espinosa MD Dx: Type 2 diabetes mellitus with stage 1 chronic kidney disease, without long-term current use of insulin (HCC) (Primary Dx) 01/12/2024 Refill [place] [address] [phone] [place] [address] Cortney Espinosa MD Dx: Type 2 diabetes mellitus with stage 1 chronic kidney disease, without long-term current use of insulin (HCC) 01/05/2024 Refill [place] [address] [phone] [place] [address] Cortney Espinosa MD Dx: Rash (Primary Dx) from Last 3 Months Immunizations Name Administration [...] Jah tracheitis,acut e Colon Cancer Maternal Grandfather Peter No Known Problems Maternal Grandmother Shelbi No [...] 0.6 oz pur e alcohol) [facility] Utilities Answer Date Recorded In the past 12 months has e [employer], gas, oil, or water [employer] threatened to shut off services in your [...] often do you attend chur ch or advent services? More than 4 times per year 08/15/2023 Do you belong to any clubs o r organizations such as episcopalian groups, unions, fraternal or athletic groups, or [...] at all 08/15/2023 [facility] [place] of Occupat ional Health - Occupational Stress [...] Comments Blood Pressure 139/81 08/21/2023 9:47 AM CARBON PLANT GRINDER Pulse 77 08/21/2023 9:47 AM [employer] PLANT GR[employer] Temperature 36.9 ??C (98.5 ??F) 08/21/2023 9:47 AM CS T Respiratory Rate 18 08/21/2023 9:47 AM [employer] PLANT GR[employer] Oxygen Saturation 96% 08/21/2023 9:47 AM [employer] PLANT GR[employer] Inhaled Oxygen Concentration - - Weight 73 kg (161 lb) 08/21/2023 9:47 AM [employer] PLANT GR[employer] Height 161.1 cm (5' 3.43) 03/30/2023 10:53 AM C DT Body Mass Index 28.14 03/30/2023 10:53 AM CDT Plan of Treatment Health Maintenance Due Date Last Done Comments Varicella Zoster Sequential (2 of 3) 07/23/2009 05/28/2009 Respiratory Syncytial Virus (RSV) Vaccine (1 - 1-dose 75+ series) 01/25/2023 COVID-19 Vaccine (7 - season) 2024 04/27/2023, 04/03/2022, 11/01/2021, Additional history exists Influenza Vaccine (#1) 2024 , 04/03/2022, 04/10/2021, Additional history exists Hemoglobin A1C 03/12/2024 09/10/2023, 03/07, 09/05/2022, Additional history exists Lipids 03/30/2024 03/30/2023, 02/04, 02/04/2021, Additional history exists Medicare Annual Visit 03/30/2024 03/30/2023 , 02/28/2022, 02/08/2021, Additional history exists Renal Assessment 03/30/2024 03/30/2023, , 09/25/2017, Additional history exists Foot Exam 04/03/2024 04/03/2023, 03/07, 04/03/2023, Additional [...] GLYCOSYLATED HEMOGLOBIN, A1C Routine 09/10/2023 9:59 AM [employer] PLANT GRIND[employer] Type 2 diabetes mellitus with stage 1 [...] EYE EXAM - EXTERNAL (12/25/2023) RETINOPATHY Negative [facility] Cortney Espinosa MD NURSING COMMUNICAT ION [address] [address], * GLYCOSYLATED HEMOGLOBIN, A1C (09/10/2023 9:59 AM [employer] PLANT GR[employer]) Hemoglobin A1c 6.3 <=6.4 % 09/10/2023 10:27 AM CAR[employer] PLANT GR[employer]ER [facility] Estimated Average Glucose 134 mg/dL 09/10/2023 10:27 AM [facility] Blood VENOUS BLOOD / Unknown Venipuncture / Unknown 09/10/2023 9:59 AM [employer] PLANT GR[employer] 09/10/2023 9:59 AM [employer] Cortney Espinosa MD LAB CHEMISTRY ORDE RABCHRISTEL [facility] [address] [place] [address], [place] [phone] * MICROALBUMIN, RANDOM, URINE (03/30/2023 11:28 AM CDT) Microalbumin, Urine <12.0 mg/L 03/30/2023 1:46 PM CDT [facility] Creatinine, Urine 71.1 mg/dL 03/30/2023 1:46 PM CDT [facility] Microalbumin/Cr eatinine Ratio 03/30/2023 1:46 PM CDT [facility] Comment: Unable to calculate ratio due to decreased Microalbumin. Normal: <30 Microalbuminuria: 30-299 Clinical Microalbuminuria: >300 Urine SPOT URINE SPECIMEN / Unknown Non-blood Collection / Unknown 03/30/2023 11:28 AM CDT 03/30/2023 11:28 AM CDT Cortney Espinosa MD LAB URINE ORDERABL ES [facility] [address] [place] [address], [place] [phone] * (ABNORMAL) LIPID PANEL (03/30/2023 11:28 AM CDT) Cholesterol 138 0 - 200 mg/dL 03/30/2023 1:39 PM CDT [facility] Triglycerides 86 0 - 150 mg/dL 03/30/2023 1:39 PM CDT [facility] Cholesterol, LDL (Calculated) 69 <=100 mg/dL 03/30/2023 1:39 PM CDT [facility] Cholesterol, HDL 52(L) 60 - 150 mg/dL 03/30/2023 1:39 PM CDT [facility] Cholesterol, vLDL 17 0 - 130 mg/dL 03/30/2023 1:39 PM CDT [facility] Fasting Status Yes 03/30/2023 1:39 PM CDT [facility] Blood VENOUS BLOOD / Unknown Venipuncture / Unknown 03/30/2023 11:28 AM CDT 03/30/2023 11:28 AM CDT Cortney Espinosa MD LAB CHEMISTRY ZACH GALAN [facility] Organization Address City/State/ZIP Co de Phone Number [facility] [address] [place] [address], * DEXA HIP AND SPINE (02/26/2021 10:38 [...] PM CDT) 03/01/2020 12:0 1 PM CDT [facility] - 03/01/2020 1:05 PM CDT Patient Name: SUMAYA GALVAN Procedure Date: 03/01/2020 Date of : 1950 Attending MD: BILLY ESPINOSA MD Referring MD CORTNEY ESPINOSA Additional Staff Jade ??Min, Nursing Executive; Malini ??LUCIA Quiros Patient Profile - ??Refer [...] without bleeding Diagnosis Code(s)CPT(R) - 2019 copyright [employer]. All Rights Reserved. Diagnosis Code(s)The CPT codes, CCI edits and ICD codes generated are intended as suggestions and were generated based on input data. ??These codes are preliminary and upon plodder operator review may be revised to meet current compliance and payer requirements. ??The provider is responsible for the final determination of appropriate codes, and modifiers. Scope Withdrawal Time 00:12:06 Signature Name: Billy Espinosa Signature Statement:This document has been electronically signed. Note Initiated On:03/01/2020 Signature Date:03/01/2020 1:05 PM Cortney Espinosa MD GI PROCEDURES [facility] [address] from Last 3 Months or Most Recently Relevant to Health Maintenance Advance Directives Documents on File Type Date Recorded Patient Hand Sander Expl anation Physician Orders for Life-Sustaining Treatment (POLST) 05/18/2023 2:28 PM POLST POLST-S 04/03/2023 2:26 PM Advanced Directives 06/06/2020 1:42 PM CRS [facility] Health Care Directive-S 02/17/2005 1:42 PM Care Teams Cake Icer And Packer Relationship Specialty Start Date End Date Cortney Espinosa MD [address] [place] [address] PCP - General Family Medicine 04/30/19 [facility] 03/30/23 Primary Eye Care 03/30/23 Additional Source Comments PLEASE NOTE: Replies to this message will not be received.[facility] and [facility]
--- OUTSIDE RECORDS SUMMARY | 2024-04-05 09:33 | XMS_ITS | Encounter Summary ---
Author Organization [employer] Address [address] [place] [address] Care Team Providers Care Starting Gate Driver Name Role Phone Cortney Chandra MD Primary Care Provider +1- [phone] Encounter Details Date Type Department Care Team (Latest Contact Info) Description 03/08/2024 Patient Message [facility] [address] [place], [place] [phone] Cortney Chandra MD [address] [place] [phone] Dx: Other hyperlipidemia Social History Tobacco Use Types Packs/Day Years Used Date Smoking Tobacco: Never Smokeless Tobacco: Never Alcohol Use Standard Drinks/Week Comments Never 0 (1 standard drink = 0.6 oz pur e alcohol) [facility] Utilities Answer Date Recorded In the past 12 months has [facility] [employer], [employer], oil, or water [employer] threatened to shut off services in your [...] How often do you attend chur or samaritan services? More than 4 times per year 08/15/2023 Do you belong to any clubs o r organizations such as taoist groups, unions, fraternal or athletic groups, or [...] Not hard at all 08/15/2023 [facility] of Occupat ional Health - [...] place to sleep or slept in a intermediate (including now)? No 08/15/2023 Depression (PHQ-9) Answer [...] pollen documented in this encounter Care Teams Starting Gate Driver Relationship Specialty Start Date End Date Cortney Chandra MD [address] [place] [phone] PCP - General Family Medicine 04/30/19 [facility] 03/30/23 Primary Eye Care 03/30/23 documented as of this encounter Additional Source Comments PLEASE NOTE: Replies to this message will not be received.[facility] and [facility]
--- OUTSIDE RECORDS SUMMARY | 2024-04-05 09:33 | XMS_ITS | Referral Summary ---
Author Organization [employer] Address [address] [place] [address] Care Team Providers Care Hydrogen Cell Tender Name Role Phone Cortney Espinosa MD Primary Care Provider +1- [phone] Encounters Date Type Department Care Team Description 04/05/2024 Telephone [place] [phone] [place], [place] [phone] Ingrid George RN Chief Comp: Questions 03/08/2024 Patient Message [phone] [place], [place] [phone] Cortney Espinosa MD Dx: Other hyperlipidemia 03/01/2024 Refill [phone] [place] [address] Cortney Espinosa MD Dx: Essential hypertension (Primary Dx) 02/19/2024 Refill [phone] [place] [address] Cortney Espinosa MD Dx: Type 2 diabetes mellitus with stage 1 chronic kidney disease, without long-term current use of insulin (HCC) (Primary Dx) [facility] [place] [phone] [place] [address] Cortney Espinosa MD Dx: Type 2 diabetes mellitus with stage 1 chronic kidney disease, without long-term current use of insulin (HCC) 01/05/2024 Refill [facility] [address] [place] [address] Cortney Espinosa MD Dx: Rash (Primary Dx) from Last 3 Months Allergies Active Allergy Reactions Criticality Noted Date Comments Tramadol Nausea and / or Vomiting Low 04/29/2019 Medications Medication Sig Dispensed Refills Start Date End Date Status albuterol HFA (AKA: PROVENTIL/VENTOLIN) 90 mcg/actuation inhalation HFA Aerosol Inhaler 1-2 Puffs by inhalation route every 4 hours if needed for shortness of breath. Active B-D-V-zinc-sod selenate-copper (AKA: OCUVITE, PROSIGHT) 5,000-60-30 komc-gw-acam oral Tablet Take 1 Tablet by mouth [...] Active fluticasone propionate (FLONASE) 50 mcg/actuation nasal [place], SuspensionIndicatio ns:Allergic rhinitis due to pollen, unspecified [...] = 0.6 oz pur e alcohol) [facility] Utilities Answer Date Recorded In the [...] How often do you attend chur or yarsanism services? More than 4 times per year 08/15/2023 Do you belong to any clubs o r organizations such as buddhism groups, unions, fraternal or athletic groups, or [...] and heating? Not hard at all 08/15/2023 [facility] of Occupat ionok Health - Occupational Stress Questionnaire Answer Date [...] Comments Blood Pressure 139/81 08/21/2023 9:47 AM EMAIL MARKETING EXECUTIVE Pulse 77 08/21/2023 9:47 AM EMAIL MARKETING EXECUTIVE Temperature 36.9 ??C (98.5 ??F) 08/21/2023 9:47 AM CS T Respiratory Rate 18 08/21/2023 9:47 AM EMAIL MARKETING EXECUTIVE Oxygen Saturation 96% 08/21/2023 9:47 AM EMAIL MARKETING EXECUTIVE Inhaled Oxygen Concentration - - Weight 73 kg (161 lb) 08/21/2023 9:47 AM EMAIL MARKETING EXECUTIVE Height 161.1 cm (5' 3.43) 03/30/2023 10:53 [...] GLYCOSYLATED HEMOGLOBIN, A1C Routine 09/10/2023 9:59 AM EMAIL MARKETING EXECUTIVE Type 2 diabetes mellitus with stage 1 chronic kidney disease, without long-term current use of insulin ([facility]) LIPID PANEL Routine 03/30/2023 11:28 AM CDT [...] EYE EXAM - EXTERNAL (12/25/2023) RETINOPATHY Negative [facility] Cortney Espinosa MD [place] [address], * GLYCOSYLATED HEMOGLOBIN, A1C (09/10/2023 9:59 AM EMAIL MARKETING EXECUTIVE) Hemoglobin A1c 6.3 <=6.4 % 09/10/2023 10:27 AM EMAIL MARKETING EXECUTIVE [facility] Estimated Average Glucose 134 mg/dL 09/10/2023 10:27 AM [facility] Blood VENOUS BLOOD / Unknown Venipuncture / Unknown 09/10/2023 9:59 AM EMAIL MARKETING EXECUTIVE 09/10/2023 9:59 AM EMAIL MARKETING EXECUTIVE Cortney Espinosa MD LAB CHEMISTRY ORDE RABLES [address] [address], [place] [phone] * MICROALBUMIN, RANDOM, URINE (03/30/2023 11:28 AM CDT) Microalbumin, Urine <12.0 mg/L 03/30/2023 1:46 PM CDT [facility] Creatinine, Urine 71.1 mg/dL 03/30/2023 1:46 PM CDT [facility] Microalbumin/Cr eatinine Ratio 03/30/2023 1:46 PM CDT [facility] Comment: Unable to calculate ratio due to decreased Microalbumin. Normal: <30 Microalbuminuria: 30-299 Clinical Microalbuminuria: >300 Urine SPOT URINE SPECIMEN / Unknown Non-blood Collection / Unknown 03/30/2023 11:28 AM CDT 03/30/2023 11:28 AM CDT Cortney Espinosa MD LAB URINE ORDERABL ES Performing Organization Address City/[facility]/ZIP Co de Phone Number [facility] [address] [place] [address], [place] [phone] * (ABNORMAL) LIPID PANEL (03/30/2023 11:28 AM CDT) Cholesterol 138 0 - 200 mg/dL 03/30/2023 1:39 PM CDT [facility] Triglycerides 86 0 - 150 mg/dL 03/30/2023 1:39 PM CDT [facility] Cholesterol, LDL (Calculated) 69 <=100 mg/dL 03/30/2023 1:39 PM CDT [facility] Cholesterol, HDL 52(L) 60 - 150 mg/dL 03/30/2023 1:39 PM CDT [facility] Cholesterol, vLDL 17 0 - 130 mg/dL 03/30/2023 1:39 PM T [facility] Fasting Status Yes 03/30/2023 1:39 PM CDT [facility] Blood VENOUS BLOOD / Unknown Venipuncture / Unknown 03/30/2023 11:28 AM CDT 03/30/2023 11:28 AM CDT Cortney Espinosa MD LAB CHEMISTRY ZACH GALAN [facility] Organization Address City/State/ZIP Co de Phone Number [facility] [address] [place] [address], * DEXA HIP AND SPINE (02/26/2021 10:38 [...] CDT) 03/01/2020 12:0 1 PM CDT Narrative [facility] - 03/01/2020 1:05 PM CDT Patient Name: SUMAYA GALVAN Procedure Date: 03/01/2020 Date of : 1950 Attending MD: BILLY ESPINOSA MD Referring MD CORTNEY ESPINOSA Additional Staff Jade ??Min, Production Operations Manager; Malini ??Ishaan, RN Patient Profile - ??Refer to note in [...] without bleeding Diagnosis Code(s)CPT(R) - 2019 copyright [employer]. All Rights Reserved. Diagnosis Code(s)The CPT codes, CCI edits and ICD codes generated are intended as suggestions and were generated based on input data. ??These codes are preliminary and upon cpas review may be revised to meet current compliance and payer requirements. ??The provider is responsible for the final determination of appropriate codes, and modifiers. Scope Withdrawal Time 00:12:06 Signature Name: Billy Espinosa Signature Statement:This document has been electronically signed. Note Initiated On:03/01/2020 Signature Date:03/01/2020 1:05 PM Cortney Espinosa MD GI PROCEDURES [facility] [address] [place] [address], from Last 3 Months or Most Recently Relevant to Health Maintenance Advance Directives Documents on File Type Date Recorded Patient Site Acquisition Specialist Expl anation Physician Orders for Life-Sustaining Treatment (POLST) 05/18/2023 2:28 PM POLST POLST-S 04/03/2023 2:26 PM Advanced Directives 06/06/2020 1:42 PM CRS [facility] Health Care Directive-S 02/17/2005 1:42 PM Care Teams Hydrogen Cell Tender Relationship Specialty Start Date End Date Cortney Espinosa MD [address] [place] [address] PCP - General Family Medicine 04/30/19 [facility] 03/30/23 Primary Eye Care 03/30/23 Additional Source Comments PLEASE NOTE: Replies to this message will not be received.[facility] and [facility]
--- OUTSIDE RECORDS SUMMARY | 2024-04-05 09:34 | XMS_ITS | Encounter Summary ---
Author Organization [employer] Address [address] [place] [address] Care Team Providers Care Medical Record Technician Name Role Phone Cortney Chandra MD Primary Care Provider +1- [phone] Reason for Visit * Reason Comments Refill Request Encounter Details Date Type Department Care Team (Late st Contact Info) Description 01/12/2024 Refill [facility] Medicine [address] [place], [place] [phone] Cortney Chandra MD [address] [place] [address] Dx: Type 2 diabetes mellitus [...] In the past 12 months has e [employer], gas, oil, or water [employer] threatened to shut off services in your [...] How often do you attend chur or adventism services? More than 4 times per year 08/15/2023 Do you belong to any clubs o r organizations such as mu-ism groups, unions, [email or web address] or athletic groups, or school groups? No [...] and heating? Not hard at all 08/15/2023 [facility] of Occupat ional Health - Occupational Stress [...] specified documented in this encounter Care Teams Medical Record Technician Relationship Specialty Start Date End Date Cortney Chandra MD [address] [place] [address] PCP - General Family Medicine 04/30/19 [facility] 03/30/23 Primary Eye Care 03/30/23 documented as of this encounter Additional Source Comments PLEASE NOTE: Replies to this message will not be received.[facility] and [facility]
--- OUTSIDE RECORDS SUMMARY | 2024-04-05 09:34 | XMS_ITS | Encounter Summary ---
Author Organization [employer] Address [address] [place] [address] Care Team Providers Care Crew Member Name Role Phone Unknown, Provider Primary Care Provider Unavaila ble Cortney Chandra MD Unavailable [phone] Cortney Chandra MD Primary Care Provider [phone] Encounter Details Date Type Department Care Team (Late st Contact Info) Description 09/28/2018 Historical Conversion [facility] Family Medicine [address] [place] [address]. [place] [address] Cortney Chandra MD [address] [place] [address] Social History Tobacco Use Types [...] TABLET THREE TIMES DAILY; Therapy: 30Sep2010 to (Evaluate:56Ela0533) Requested for: 07Jul2016; Last Rx:07Jul2016 Ordered 3. Fluticasone Propionate 50 MCG/ACT Nasal Suspension; INSTILL 1 SPRAY DAILY IN EACH NOSTRIL; Therapy: 17Apr2009 to (Evaluate:14Apr2018) Requested for: 59Ofs2047; Last Rx:16Oct2017 Ordered 4. Hydrocortisone 2.5 % External Cream; APPLY SPARINGLY TO AFFECTED AREA(S) TWICE DAILY; Therapy: 20Jul2015 to (Evaluate:15Pae2812) Requested for: 10Sep2018; Last Rx:10Sep2018 Ordered 5. Loratadine 10 MG Oral Tablet; TAKE 1 TABLET BY MOUTH DAILY NEEDED; Therapy: 11Ofa6073 to (Last Rx:10Sep2018) Requested for: 10Sep2018 Ordered 6. Losartan Potassium 100 MG Oral Tablet; TAKE 1 TABLET BY MOUTH ONCE DAILY; Therapy: 07Uud7846 to (Evaluate:10Jul2019) Requested for: 15Jul2018; Last Rx:15Jul2018 Ordered 7. metFORMIN HCl ER 500 MG Oral Tablet Extended Release 24 Hour; TAKE 4 TABLETS( 2000MG) BY MOUTH ONCE DAILY; Therapy: 20Pdg7543 to (Evaluate:18Jul2019) Requested for: 23Jul2018; Last Rx:23Jul2018 Ordered 8. Pyridium 100 MG Oral Tablet; TAKE 1 TABLET 3 TIMES DAILY AFTER MEALS NEEDED; Therapy: 37Mos8703 to (Last Rx:08Fvl5250) Requested for: 32Vth4378 Ordered 9. Simvastatin 20 MG Oral Tablet; TAKE ONE TABLET BY MOUTH DAILY; Therapy: 18Eqb6701 to (Evaluate:10Jul2019) Requested for: 15Jul2018; Last Rx:15Jul2018 Ordered 10. Ventolin HFA 108 (90 Base) MCG/ACT Inhalation Aerosol Solution; INHALE 1 TO 2 PUFFS EVERY 4 TO 6 HOURS NEEDED; Therapy: 13Bqi2553 to (Last Rx:89Aon6580) Requested for: 81Xfa2601 Ordered 11. Vision Vitamins Oral Tablet; TAKE 1 TABLET DAILY; Therapy: 28Sep2018 to Recorded 12. Vitamin D3 1000 UNIT Oral Tablet; takes 2 tablets daily; Therapy: (Recorded:67Nyg4740) to Recorded Allergies 1. Ultram TABS Vitals [...] External ears and nose are normal to inspection.\R\t2Zqulzqgr membranes clear bilaterally.\R\b0Lips, teeth, and gum are normal, good dentition.\R\d0Dlgdbputtq is normal with no erythema, edema, exudate or lesions. Neck Neck is supple and symmetric. The trachea is midline with no masses.\R\c9Amlmhf thyroid with no thyromegaly. Pulmonary Lungs are clear to auscultation. Cardiovascular Normal rate and rhythm, normal S1 and S2, no murmurs.\R\p9Hrzkexz pulses are 2+ bilaterally without bruit.\R\f4Hivjjox pulses are 2+ bilaterally.\R\p8Cnixj pulses are 2+ bilaterally.\R\b0No edema and/or varicosities. Chest Normal breasts with no dimpling or skin changes appreciated.\R\b0No breast or axillary massespalpated. Abdomen hemorrhoids noted, not acutely inflamed\R\b0Soft, non-tender with no masses.\R\b0No hepatosplenomegaly.\R\b0No hernia appreciated.\R\p1Bwggin sphincter tone, no masses. Genitourinary Normal external genitalia and vagina, no lesions appreciated.\R\i2Axoswx meatus with no discharge.\R\b0The bladder is not distended, no tenderness.\R\x4Lgknuu is absent.\R\e1Immqgo is ab sent.\R\q8Ypzxnl/Parametria are normal, no masses or tenderness. Lymphatic No cervical lymphadenopathy.\R\b0No axillary lymphadenopathy.\R\b0No inguinal lymphadenopathy. Musculoskeletal Normal gait and station.\R\o1Copzkq muscle strength and tone. Skin Skin and subcutaneous tissue are normal without rashes or lesions.\R\d7Xhjikh turgor. Neurologic Reflexes are 2+ and symmetric.\R\z0Vohntw tactile sensation with monofilament testing throughout boot feet. Capillary refill findings were normal bilaterally. Psychiatric Good eye contact and answers questions appropriately.\R\q5Jlsdvnuksap mood and affect. Signatures Electronically signed by : Cortney Chandra M.D.; Oct 11 2018 7:23AM HAND DRAWER IN HELPER documented in this encounter Plan of Treatment Not on file documented as of this encounter Visit Diagnoses Not on filedocumented in this encounter Care Teams Crew Member Relationship Specialty Start Date End Date Unknown, Provider . HIRAM PEGUERO [id number] PCP - General 03/26/18 04/29/19 Cortney Chandra MD [address] [place] [address] PCP - General Family Medicine 04/30/19 Cortney Chandra MD [address] [place] [address] PCP Family Medicine 04/29/19 04/29/19 [facility] 03/30/23 Primary Eye Care 03/30/23 documented as of this encounter Additional Source Comments PLEASE NOTE: Replies to this message will not be received.[facility] and [facility]
--- OUTSIDE RECORDS SUMMARY | 2024-04-05 09:34 | XMS_ITS | Encounter Summary ---
Author Organization [employer] Address [address] [place] [address] Care Team Providers Care Casting Machine Service Operator Name Role Phone Unknown, Provider Primary Care Provider Unavaila ble Cortney Chandra MD Unavailable [phone] Cortney Chandra MD Primary Care Provider [phone] Encounter Details Date Type Department Care Team (Late st Contact Info) Description 09/25/2017 Historical Conversion [facility] Family Medicine [address] [place] [address]. [place] [address] Cortney Chandra MD [address] [place] [address] Social History Tobacco Use Types [...] Visit [facility] History of Present Illness Sumaya is here for annual HCM exam along with Medicare wellness. She has a hx of type 2 DM, hyperlipidemia and HTN. She is doing well. She notes some join and back discomfort off and on but does notwant to do anything about it. She is still working casual as an [employer] and still enjoys this. Her asthma and [...] Aspirin 81 MG TABS; ONE DAILY; Last Rx:61Gcl8513 Ordered 2. Cheratussin AC 100-10 MG/5ML Oral Syrup; TAKE 10 ML EVERY 4 TO 6 HOURS NEEDED; Therapy: 05Oct2012 to (Evaluate:16Pxs5422); Last Rx:77Tmw6849 Ordered 3. Cyclobenzaprine HCl - 10 MG Oral Tablet; TAKE 1/2 TO 1 TABLET THREE TIMES DAILY; Therapy: 30Sep2010 to (Evaluate:17Rli5104) Requested for: 07Jul2016; Last Rx:07Jul2016 Ordered 4. Fluticasone Propionate 50 MCG/ACT Nasal Suspension; INSTILL 1 SPRAY DAILY IN EACH NOSTRIL; Therapy: 17Apr2009 to (Evaluate:15Dec2016) Requested for: 59Fgu2572; Last Rx:29Cbt8567 Ordered 5. Hydrocortisone 2.5 % External Cream; APPLY SPARINGLY TO AFFECTED AREA(S) TWICE DAILY; Therapy: 20Jul2015 to (Evaluate:08Oqn1138) Requested for: 17Jul2017; Last Rx:17Jul2017 Ordered 6. Loratadine 10 MG Oral Tablet; TAKE 1 TABLET BY MOUTH DAILY NEEDED; Therapy: 92Uwa9148 to (Evaluate:12Sep2018) Requested for: 17Sep2017; Last Rx:17Sep2017 Ordered 7. Losartan Potassium 100 MG Oral Tablet; TAKE 1 TABLET BY MOUTH ONCE DAILY; Therapy: 31Yhz0497 to (Evaluate:12Jul2018) Requested for: 17Jul2017; Last Rx:17Jul2017 Ordered 8. MetFORMIN HCl ER 500 MG Oral Tablet Extended Release 24 Hour; TAKE 4 TABLETS( 2000MG) BY MOUTH ONCE DAILY; Therapy: 52Cgt4088 to (Evaluate:12Jul2018) Requested for: 17Jul2017; Last Rx:17Jul2017 Ordered 9. One-Daily Multi Vitamins Oral Tablet; TAKE 1 TABLET DAILY; Therapy: (Recorded:23Jul2012) to Recorded 10. Simvastatin 20 MG Oral Tablet; TAKE ONE TABLET BY MOUTH DAILY; Therapy: 10Lyd9024 to (Evaluate:12Jul2018) Requested for: 17Jul2017; Last Rx:17Jul2017 Ordered 11. Ventolin HFA 108 (90 Base) MCG/ACT Inhalation Aerosol Solution; INHALE 1 TO 2 PUFFS EVERY 4 TO 6 HOURS NEEDED; Therapy: 23Ttm4534 to (Last Rx:42Qmi0377) Requested for: 54Xan5376 Ordered 12. Vitamin D3 1000 UNIT Oral Tablet; takes 2 tablets daily; Therapy: (Recorded:42Tfd9183) to Recorded Allergies 1. Ultram TABS Vitals [...] Cortney Chandra M.D.; Oct 05 2017 8:00AM TAN ROOM SUPERVISOR documented in this encounter Plan of Treatment Not on file documented as of this encounter Visit Diagnoses Not on filedocumented in this encounter Care Teams Casting Machine Service Operator Relationship Specialty Start Date End Date Unknown, Provider . HIRAM PEGUERO [address] PCP - General 03/26/18 04/29/19 Cortney Chandra MD [address] [place] [address] PCP - General Family Medicine 04/30/19 Cortney Chandra MD [address] [place] [address] PCP Family Medicine 04/29/19 04/29/19 [facility] 03/30/23 Primary Eye Care 03/30/23 documented as of this encounter Additional Source Comments PLEASE NOTE: Replies to this message will not be received.[facility] and [facility]
--- OUTSIDE RECORDS SUMMARY | 2024-04-05 09:34 | XMS_ITS | Encounter Summary ---
Author Organization [employer] Address [address] [place] [address] Care Team Providers Care Powder Core Tester Name Role Phone Unknown, Provider Primary Care Provider Unavaila ble Cortney Chandra MD Unavailable [phone] Cortney Chandra MD Primary Care Provider [phone] Encounter Details Date Type Department Care Team (Late st Contact Info) Description 08/30/2018 Historical Conversion [facility] Family Medicine [address] [place] [address]. [place] [address] Cortney Chandra MD [address] [place] [address] Social History Tobacco Use Types Packs/Day Years Used Date Smoking Tobacco: Never Assessed Sex and Gender Information Value Date Recorded Sex Assigned at Not on file Gender Identity Female 01/16/2023 2:23 PM CDT Sexual Orientation Not on file documented as of this encounter Last Filed Vital Signs Vital Sign Reading Time Taken Comments Blood Pressure 124/76 08/30/2018 12:00 AM SALES REPRESENTATIVE PRINTING Pulse - - Temperature - - Respiratory Rate - - Oxygen Saturation - - Inhaled Oxygen Concentration - - Weight 88.5 kg (195 lb 1.7 oz) 08/30/2018 12:00 AM SALES REPRESENTATIVE PRINTING Height 162.5 cm (5' 3.98) 08/30/2018 12:[address] Body Mass Index 33.52 08/30/2018 12:00 AM SALES REPRESENTATIVE PRINTING documented in this encounter Plan of Treatment Not on file documented as of this encounter Visit Diagnoses Not on filedocumented in this encounter Care Teams Powder Core Tester Relationship Specialty Start Date End Date Unknown, Provider . HIRAM PEGUERO [address] PCP - General 03/26/18 04/29/19 Cortney Chandra MD [address] [place] [address] PCP - General Family Medicine 04/30/19 Cortney Chandra MD [address] [place] [address] PCP Family Medicine 04/29/19 04/29/19 [facility] 03/30/23 Primary Eye Care 03/30/23 documented as of this encounter Additional Source Comments PLEASE NOTE: Replies to this message will not be received.[facility] and [facility]
--- OUTSIDE RECORDS SUMMARY | 2024-04-05 09:34 | XMS_ITS | Encounter Summary ---
Author Organization [employer] Address [address] [place] [address] Care Team Providers Care Social Media Marketing Analyst Name Role Phone Unknown, Provider Primary Care Provider Unavaila ble Cortney Chandra MD Unavailable [phone] Cortney Chandra MD Primary Care Provider [phone] Encounter Details Date Type Department Care Team (Late st Contact Info) Description 07/20/2015 Historical Conversion [facility] Family Medicine [address] [place] [address] [place] [address] Cortney Chandra MD [address] [place] [address] Social History Tobacco Use Types [...] 81 MG Oral Tablet; ONE DAILY; Last Rx:56Ybh9261 Ordered 2. Calcium 600/Vitamin D3 TABS; 1 [...] DAILY IN EACH NOSTRIL; Therapy: 17Apr2009 to (Evaluate:20Uib4659) Requested for: 09May2014; Last Rx:09May2014 Ordered 6. Loratadine 10 MG Oral Tablet; TAKE 1 TABLET BY MOUTH DAILY NEEDED; Therapy: 89Qgs4637 to (Evaluate:90Wir5398) Requested for: 85Yzx0842; Last Rx:97Lzt0860 Ordered 7. Losartan Potassium 100 MG Oral Tablet; TAKE 1 TABLET BY MOUTH ONCE DAILY; Therapy: 51Duv0987 to (Evaluate:67Zlh5355) Requested for: 13Feb2015; Last Rx:52Yxo3164 Ordered 8. MetFORMIN HCl ER 500 MG Oral Tablet Extended Release 24 Hour; TAKE 4 TABLETS( 2000MG) BY MOUTH ONCE DAILY; Therapy: 80Cpz5299 to (Evaluate:87Sre4953) Requested for: 13Feb2015; Last Rx:13Feb2015 Ordered 9. One-Daily Multi Vitamins Oral Tablet; TAKE 1 TABLET DAILY; Therapy: (Recorded:23Jul2012) to Recorded 10. ProAir HFA 108 (90 Base) MCG/ACT Inhalation Aerosol Solution; INHALE 2 PUFFS EVERY 4 HOURS NEEDED FOR COUGHAND WHEEZE; Therapy: 26May2008 to (Last Rx:14May2015) Requested for: 14May2015 Ordered 11. Simvastatin 20 MG Oral Tablet; TAKE ONE TABLET BY MOUTH DAILY; Therapy: 82Jwy7417 to (Evaluate:11Jul2016) Requested for: 17Jul2015; Last Rx:17Jul2015 [...] Never smoked Review of Systems Female Complete [facility] [employer]: Constitutional: no fever and no chills. Eyes: [...] is a 65-year-old recently retired employee from [employer] that is here for her first Medicare [...] Cortney Chandra M.D.; Aug 07 2015 1:15PM MIXING SUPERVISOR documented in this encounter Plan of Treatment Not on file documented as of this encounter Visit Diagnoses Not on filedocumented in this encounter Care Teams Social Media Marketing Analyst Relationship Specialty Start Date End Date Unknown, Provider . HIRAM PEGUERO [address] PCP - General 03/26/18 04/29/19 Cortney Chandra MD [address] [place] [address] PCP - General Family Medicine 04/30/19 Cortney Chandra MD [address] [place] [address] PCP Family Medicine 04/29/19 04/29/19 [facility] 03/30/23 Primary Eye Care 03/30/23 documented as of this encounter Additional Source Comments PLEASE NOTE: Replies to this message will not be received.[facility] and [facility]
--- OUTSIDE RECORDS SUMMARY | 2024-04-05 09:34 | XMS_ITS | Encounter Summary ---
Author Organization [employer] Address [address] [place] [address] Care Team Providers Care Aerosol Line Operator Name Role Phone Unknown, Provider Primary Care Provider Unavaila Cortney Gomez MD Unavailable [phone] Cortney Chandra MD Primary Care Provider [phone] Encounter Details Date Type Department Care Team (Late st Contact Info) Description 06/14/2018 Historical Conversion [facility] Family Medicine [address] [facility] [place] [address] Rosemary Aquino APRN,ROOF TRUSS DETAILER [address] [place] [address] Social History Tobacco Use Types Packs/Day Years Used Date Smoking Tobacco: Never Assessed Sex and Gender Information Value Date Recorded Sex Assigned at Not on file Gender Identity Female 01/16/2023 2:23 PM CDT Sexual Orientation Not on file documented as of this encounter Progress Notes * Rosemary Aquino, CHALINO,ROOF TRUSS DETAILER - 06/14/2018 12:00 AM CST Assessment 1. [...] UA - Culture if Indicated; Status:Complete; Done: 36Mkn3907 09:17AM Reason For Visit Patient in with [...] TABLET THREE TIMES DAILY; Therapy: 30Sep2010 to (Evaluate:02Fag1591) Requested for: 07Jul2016; Last Rx:07Jul2016 Ordered 3. Fluticasone Propionate 50 MCG/ACT Nasal Suspension; INSTILL 1 SPRAY DAILY IN EACH NOSTRIL; Therapy: 17Apr2009 to (Evaluate:14Apr2018) Requested for: 16Oct2017; Last Rx:16Oct2017 Ordered 4. Hydrocortisone 2.5 % External Cream; APPLY SPARINGLY TO AFFECTED AREA(S) TWICE DAILY; Therapy: 20Jul2015 to (Evaluate:97Kem6275) Requested for: 17Jul2017; Last Rx:17Jul2017 Ordered 5. Loratadine 10 MG Oral Tablet; TAKE 1 TABLET BY MOUTH DAILY NEEDED; Therapy: 87Err1047 to (Evaluate:12Sep2018) Requested for: 17Sep2017; Last Rx:17Sep2017 Ordered 6. Losartan Potassium 100 MG Oral Tablet; TAKE 1 TABLET BY MOUTH ONCE DAILY; Therapy: 05Cta3500 to (Evaluate:12Jul2018) Requested for: 17Jul2017; Last Rx:17Jul2017 Ordered 7. MetFORMIN HCl ER 500 MG Oral Tablet Extended Release 24 Hour; TAKE 4 TABLETS( 2000MG) BY MOUTH ONCE DAILY; Therapy: 61Lfc1977 to (Evaluate:12Jul2018) Requested for: 17Jul2017; Last Rx:17Jul2017 Ordered 8. One-Daily Multi Vitamins Oral Tablet; TAKE 1 TABLET DAILY; Therapy: (Recorded:23Jul2012) to Recorded 9. Simvastatin 20 MG Oral Tablet; TAKE ONE TABLET BY MOUTH DAILY; Therapy: 79Zxt3426 to (Evaluate:12Jul2018) Requested for: 17Jul2017; Last Rx:17Jul2017 Ordered 10. Ventolin HFA 108 (90 Base) MCG/ACT Inhalation Aerosol Solution; INHALE 1 TO 2 PUFFS EVERY 4 TO 6 HOURS NEEDED; Therapy: 06Mar2017 to (Last Rx:06Mar2017) Requested for: 06Mar2017 Ordered 11. Vitamin D3 1000 UNIT Oral Tablet; takes 2 tablets daily; Therapy: (Recorded:89Bad6626) to Recorded Allergies 1. Ultram TABS Vitals [...] Electronically signed by : Rosemary Aquino, RN ROOF TRUSS DETAILER RN,ROOF TRUSS DETAILER; Jun 14 2018 12:24PM MANAGER UNIVERSITY Electronically signed by : Klever Nicole M.D.; Jul 15 2018 3:46PM MANAGER UNIVERSITY documented in this encounter Plan of Treatment Not on file documented as of this encounter Visit Diagnoses Not on filedocumented in this encounter Care Teams Aerosol Line Operator Relationship Specialty Start Date End Date Unknown, Provider . HIRAM PEGUERO [address] PCP - General 03/26/18 04/29/19 Cortney Chandra MD [address] [place] [address] PCP - General Family Medicine 04/30/19 Cortney Chandra MD [address] [place] [address] PCP Family Medicine 04/29/19 04/29/19 [facility] 03/30/23 Primary Eye Care 03/30/23 documented as of this encounter Additional Source Comments PLEASE NOTE: Replies to this message will not be received.[facility] and [facility]
--- OUTSIDE RECORDS SUMMARY | 2024-04-05 09:34 | XMS_ITS | Encounter Summary ---
Author Organization [employer] Address [address] [place] [address] Care Team Providers Care Slubber Operator Name Role Phone Unknown, Provider Primary Care Provider Unavaila Cortney Gomez MD Unavailable [phone] Cortney Chandra MD Primary Care Provider [phone] Encounter Details Date Type Department Care Team (Late st Contact Info) Description 06/16/2017 Historical Conversion [facility] Family Medicine [address] [place] [address] Rosalia Lopez MD Social History Tobacco Use Types Packs/Day Years Used Date Smoking Tobacco: Never Assessed Sex and Gender Information Value Date Recorded Sex Assigned at Not on file Gender Identity Female 01/16/2023 2:23 PM CDT Sexual Orientation Not on file documented as of this encounter Last Filed Vital Signs Vital Sign Reading Time Taken Comments Blood Pressure 136/81 06/16/2017 12:00 AM DENTAL LABORATORY ASSISTANT Pulse - - Temperature - - Respiratory Rate - - Oxygen Saturation - - Inhaled Oxygen Concentration - - Weight 86.5 kg (190 lb 11.2 oz) 017 12:00 AM DENTAL LABORATORY ASSISTANT Height - - Body Mass Index 32.56 08/19/2016 12:00 AM DENTAL LABORATORY ASSISTANT documented in this encounter Progress Notes * Rosalia Lopez MD - 06/16/2017 12:00 AM CST DERMATOLOGY OCTAVIO GALVAN : 1950 HX: [id number] DOS: 06/16/2017 CHIEF COMPLAINT: History of squamous [...] lesion. Rosalia Lopez M.D./ cc: Cortney Chandra M.D./[facility] Electronically signed by:Rosalia Lopez M.D. Jun 23 2017 8:25AM DENTAL LABORATORY ASSISTANT documented in this encounter Plan of Treatment Not on file documented as of this encounter Visit Diagnoses Not on filedocumented in this encounter Care Teams Slubber Operator Relationship Specialty Start Date End Date Unknown, Provider . HIRAM PEGUERO [address] PCP - General 03/26/18 04/29/19 Cortney Chandra MD [address] [place] [address] PCP - General Family Medicine 04/30/19 Cortney Chandra MD [address] [place] [address] PCP Family Medicine 04/29/19 04/29/19 [facility] 03/30/23 Primary Eye Care 03/30/23 documented as of this encounter Additional Source Comments PLEASE NOTE: Replies to this message will not be received.[facility] and [facility]
--- OUTSIDE RECORDS SUMMARY | 2024-04-05 09:34 | XMS_ITS | Encounter Summary ---
Author Organization [employer] Address [address] [place] [address] Care Team Providers Care Can Line Examiner Name Role Phone Unknown, Provider Primary Care Provider Unavaila Cortney Gomez MD Unavailable [phone] Cortney Chandra MD Primary Care Provider [phone] Encounter Details Date Type Department Care Team (Late st Contact Info) Description 03/07/2016 Historical Conversion [facility] Family Medicine [address] [place] [address] Rosalia Lopez MD Social History Tobacco Use [...] CDT DERMATOLOGY OCTAVIO GALVAN : 1950 HX: [id number] DOS: 03/07/2016 CHIEF COMPLAINT: History of squamous [...] ineffective. Rosalia Lopez M.D./la-7 cc: Cortney Chandra M.D./[facility] Electronically signed by:Rosalia Lopez M.D. Mar 13 2016 8:17AM WINDING RACK OPERATOR documented in this encounter Plan of Treatment Not on file documented as of this encounter Visit Diagnoses Not on filedocumented in this encounter Care Teams Can Line Examiner Relationship Specialty Start Date End Date Unknown, Provider . HIRAM PEGUERO [address] PCP - General 03/26/18 04/29/19 Cortney Chandra MD [address] [place] [address] PCP - General Family Medicine 04/30/19 Cortney Chandra MD [address] [place] [address] PCP Family Medicine 04/29/19 04/29/19 [facility] 03/30/23 Primary Eye Care 03/30/23 documented as of this encounter Additional Source Comments PLEASE NOTE: Replies to this message will not be received.[facility] and [facility]
--- OUTSIDE RECORDS SUMMARY | 2024-04-05 09:34 | XMS_ITS | Encounter Summary ---
Author Organization [employer] Address [address] [place] [address] Care Team Providers Care Hatchery Man Name Role Phone Cortney Chandra MD Primary Care Provider [phone] Reason for Visit * Reason Comments Refill Request Encounter Details Date Type Department Care Team (Late st Contact Info) Description 01/05/2024 Refill [facility] Medicine [address] [place], [place] [id number] Cortney Chandra MD [address] [place] [address] Dx: Rash (Primary Dx) Social History Tobacco Use Types Packs/Day Years Used Date Smoking Tobacco: Never Smokeless Tobacco: Never Alcohol Use Standard Drinks/Week Comments Never 0 (1 standard drink = 0.6 oz pur e alcohol) [facility] Utilities Answer Date Recorded In the past 12 months has health system [facility], gas, oil, or water dotSyntax threatened to shut off services in your [...] How often do you attend chur or baptist services? More than 4 times per year 08/15/2023 Do you belong to any clubs o r organizations such as pentecostalism groups, unions, fraternal or athletic groups, or [...] and heating? Not hard at all 08/15/2023 [facility] [...] place to sleep or slept in a retirement (including now)? No 08/15/2023 Depression (PHQ-9) Answer [...] eruption documented in this encounter Care Teams Hatchery Man Relationship Specialty Start Date End Date Cortney Chandra MD [address] [employer] [place] [address] PCP - General Family Medicine 04/30/19 [facility] 03/30/23 Primary Eye Care 9/25/23 documented as of this encounter Additional Source Comments PLEASE NOTE: Replies to this message will not be received.[facility] and [facility]
--- OUTSIDE RECORDS SUMMARY | 2024-04-05 09:34 | XMS_ITS | Encounter Summary ---
Author Organization [employer] Address [address] [place] [address] Care Team Providers Care Adjunct Instructor In Economics Name Role Phone Unknown, Provider Primary Care Provider Unavaila ble Cortney Chandra MD Unavailable [phone] Cortney Chandra MD Primary Care Provider [phone] Encounter Details Date Type Department Care Team (Late st Contact Info) Description 09/01/2014 Historical Conversion [facility] Family Medicine [address] [place] [address]. 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 Aspirin 81 MG Oral [...] BY MOUTH NEEDED; Therapy: 30Sep2010 to (Last Rx:02Yyf4981) Requested for: 26Syr6420 Ordered 5. Fluticasone Propionate 50 MCG/ACT Nasal Suspension; INSTILL 1 SPRAY DAILY IN EACH NOSTRIL; Therapy: 17Apr2009 to (Evaluate:46Slp0888) Requested for: 09May2014; Last Rx:09May2014 Ordered 6. Hydrochlorothiazide 25 MG Oral Tablet; TAKE ONE TABLET EVERY MORNING; Therapy: 26May2008 to (Evaluate:13Vvl0621) Requested for: 98Wpm1890; Last Rx:51Jml5469 Ordered 7. Loratadine 10 MG Oral Tablet; TAKE 1 TABLET BY MOUTH DAILY NEEDED; Therapy: 83Nrm4482 to (Evaluate:62Scy2675) Requested for: 04Jun2014; Last Rx:04Jun2014 Ordered 8. Losartan Potassium 100 MG Oral Tablet; TAKE 1 TABLET BY MOUTH ONCE DAILY; Therapy: 66Bqj8532 to (Evaluate:15Qgi3422) Requested for: 13Feb2014; Last Rx:55Beg5411 Ordered 9. MetFORMIN HCl ER 500 MG Oral Tablet Extended Release 24 Hour; TAKE 4 TABLETS( 2000MG) BY MOUTH ONCE DAILY; Therapy: 15Ftt9330 to (Evaluate:29Cek3602) Requested for: 07Zue0274; Last Rx:97Szp1334 Ordered 10. One-Daily Multi Vitamins Oral Tablet; TAKE 1 TABLET DAILY; Therapy: (Recorded:23Jul2012) to Recorded 11. ProAir HFA 108 (90 Base) MCG/ACT Inhalation Aerosol Solution; INHALE 2 PUFFS EVERY 4 HOURS NEEDED FOR COUGHAND WHEEZE; Therapy: 26May2008 to (Last Rx:09May2014) Requested for: 09May2014 Ordered 12. Simvastatin 20 MG Oral Tablet; TAKE ONE TABLET BY MOUTH DAILY; Therapy: 77Ywb5975 to (Evaluate:04Dec2014) Requested for: 09Dec2013; Last Rx:09Dec2013 [...] Vital Signs [Data Includes: Current Encounter] Recorded: 51Zgm3218 08:19AM Blood Pressure 130 / 80, LUE, [...] Cortney Chandra M.D.; Sep 15 2014 10:14AM CHAMFERING MACHINE OPERATOR documented in this encounter Plan of Treatment Not on file documented as of this encounter Visit Diagnoses Not on filedocumented in this encounter Care Teams Adjunct Instructor In Economics Relationship Specialty Start Date End Date Unknown, Provider . HIRAM PEGUERO [address] PCP - General 03/26/18 04/29/19 Cortney Chandra MD [address] [place] [address] PCP - General Family Medicine 04/30/19 Cortney Chandra MD [address] [place] [address] PCP Family Medicine 04/29/19 04/29/19 [facility] 03/30/23 Primary Eye Care 03/30/23 documented as of this encounter Additional Source Comments PLEASE NOTE: Replies to this message will not be received.[facility] and [facility]
--- OUTSIDE RECORDS SUMMARY | 2024-04-05 09:34 | XMS_ITS | Encounter Summary ---
Author Organization [employer] Address [address] [place] [address] Care Team Providers Care Flat Surfacer Name Role Phone Unknown, Provider Primary Care Provider Unavaila ble Cortney Chandra MD Unavailable [phone] Cortney Chandra MD Primary Care Provider [phone]- [phone] Encounter Details Date Type Department Care Team (Late st Contact Info) Description 08/30/2018 Historical Conversion [facility] Family Medicine [address] [place] [address] [place] [address] Cortney Chandra MD [address] [place] [address] Social History Tobacco Use Types [...] Plan Orders Fatigue Drawing Fee; Status:Complete; Done: 97Hdm4239 Reason For Visit Pt. presents today for [...] Aspirin 81 MG TABS; ONE DAILY; Last Rx:72Ayu3729 Ordered 2. Cyclobenzaprine HCl - 10 MG Oral Tablet; TAKE 1/2 TO 1 TABLET THREE TIMES DAILY; Therapy: 30Sep2010 to (Evaluate:13Vlw8362) Requested for: 07Jul2016; Last Rx:07Jul2016 Ordered 3. Fluticasone Propionate 50 MCG/ACT Nasal Suspension; INSTILL 1 SPRAY DAILY IN EACH NOSTRIL; Therapy: 17Apr2009 to (Evaluate:14Apr2018) Requested for: 16Oct2017; Last Rx:16Oct2017 Ordered 4. Hydrocortisone 2.5 % External Cream; APPLY SPARINGLY TO AFFECTED AREA(S) TWICE DAILY; Therapy: 20Jul2015 to (Evaluate:47Huw6263) Requested for: 17Jul2017; Last Rx:17Jul2017 Ordered 5. Loratadine 10 MG Oral Tablet; TAKE 1 TABLET BY MOUTH DAILY NEEDED; Therapy: 83Bdw7706 to (Evaluate:12Sep2018) Requested for: 17Sep2017; Last Rx:17Sep2017 Ordered 6. Losartan Potassium 100 MG Oral Tablet; TAKE 1 TABLET BY MOUTH ONCE DAILY; Therapy: 19Lgd3636 to (Evaluate:10Jul2019) Requested for: 15Jul2018; Last Rx:15Jul2018 Ordered 7. metFORMIN HCl ER 500 MG Oral Tablet Extended Release 24 Hour; TAKE 4 TABLETS( 2000MG) BY MOUTH ONCE DAILY; Therapy: 12Uou2798 to (Evaluate:18Jul2019) Requested for: 23Jul2018; Last Rx:23Jul2018 Ordered 8. One-Daily Multi Vitamins Oral Tablet; TAKE 1 TABLET DAILY; Therapy: (Recorded:23Jul2012) to Recorded 9. Pyridium 100 MG Oral Tablet; TAKE 1 TABLET 3 TIMES DAILY AFTER MEALS NEEDED; Therapy: 64Igq1478 to (Last Rx:09Gqv8960) Requested for: 14Jun2018 Ordered 10. Simvastatin 20 MG Oral Tablet; TAKE ONE TABLET BY MOUTH DAILY; Therapy: 65Irv7612 to (Evaluate:10Jul2019) Requested for: 15Jul2018; Last Rx:15Jul2018 Ordered 11. Ventolin HFA 108 (90 Base) MCG/ACT Inhalation Aerosol Solution; INHALE 1 TO 2 PUFFS EVERY 4 TO 6 HOURS NEEDED; Therapy: 06Mar2017 to (Last Rx:47Ldy4513) Requested for: 59Yvg2461 Ordered 12. Vitamin D3 1000 UNIT Oral Tablet; takes 2 tablets daily; Therapy: (Recorded:15Owz9494) to Recorded Allergies 1. Ultram TABS Vitals [...] Cortney Chandra M.D.; Sep 12 2018 4:16PM LENS GENERATING MACHINE TENDER documented in this encounter Plan of Treatment Not on file documented as of this encounter Visit Diagnoses Not on filedocumented in this encounter Care Teams Flat Surfacer Relationship Specialty Start Date End Date Unknown, Provider . [facility] [address] PCP - General 03/26/18 04/29/19 Cortney Chandra MD [address] [place] [address] PCP - General Family Medicine 04/30/19 Cortney Chandra MD [address] [place] [address] PCP Family Medicine 04/29/19 04/29/19 [facility] 03/30/23 Primary Eye Care 03/30/23 documented as of this encounter Additional Source Comments PLEASE NOTE: Replies to this message will not be received.[facility] and [facility]
--- OUTSIDE RECORDS SUMMARY | 2024-04-05 09:34 | XMS_ITS | Encounter Summary ---
Author Organization [email or web address] Address [address] [place] [address] Care Team Providers Care Ash Collector Name Role Phone Cortney Chandra MD Primary Care Provider [phone] Encounter Details Date Type Department Care Team (Late st Contact Info) Description 12/25/2023 Abstract [facility] [id number] [place], [place] [address] Cortney Chandra MD [address] [place] [address] Social History Tobacco Use Types Packs/Day Years Used Date Smoking Tobacco: Never Smokeless Tobacco: Never Alcohol Use Standard Drinks/Week Comments Never 0 (1 standard drink = 0.6 oz pur e alcohol) [facility] Utilities Answer Date Recorded In the past [address] [facility] [place], gas, oil, or water [employer] threatened to shut off services in your [...] How often do you attend chur or latter day services? More than 4 times per year 08/15/2023 Do you belong to any clubs o r organizations such as protestant groups, unions, fraternal or athletic groups, or [...] and heating? Not hard at all 08/15/2023 [facility] - Occupational [...] to sleep or slept in a senior care (including now)? No 08/15/2023 Depression (PHQ-9) Answer [...] EXAM - EXTERNAL (12/25/2023) RETINOPATHY Negative [facility] Cortney Chandra MD NURSING COMMUNICAT ION Performing Organization Address City/State/[facility] Co de Phone Number [facility] [address] [address], documented in this encounter Visit Diagnoses Not on filedocumented in this encounter Care Teams Ash Collector Relationship Specialty Start Date End Date Cortney Chandra MD [address] [place] [address] PCP - General Family Medicine 04/30/19 [facility] 03/30/23 Primary Eye Care 03/30/23 documented as of this encounter Additional Source Comments PLEASE NOTE: Replies to this message will not be received.[facility] and [facility]
--- OUTSIDE RECORDS SUMMARY | 2024-04-05 09:34 | XMS_ITS | Encounter Summary ---
Author Organization [employer] Address [address] [place] [address] Care Team Providers Care Cake Batter Mixer Name Role Phone Unknown, Provider Primary Care Provider Unavaila ble Cortney Chandra MD Unavailable [phone] Cortney Chandra MD Primary Care Provider [phone] Encounter Details Date Type Department Care Team (Late st Contact Info) Description 08/19/2016 Historical Conversion [facility] Family Medicine [address] [place] [address] [place] [address] Cortney Chandra MD [address] [place] [address] Social History Tobacco Use Types Packs/Day Years Used Date Smoking Tobacco: Never Assessed Sex and Gender Information Value Date Recorded Sex Assigned at Not on file Gender Identity Female 01/16/2023 2:23 PM CDT Sexual Orientation Not on file documented as of this encounter Last Filed Vital Signs Vital Sign Reading Time Taken Comments Blood Pressure 132/78 08/19/2016 12:00 AM CUSTOMER ACCOUNT REPRESENTATIVE Pulse - - Temperature - - Respiratory Rate - - Oxygen Saturation - - Inhaled Oxygen Concentration - - Weight 86.2 kg (190 lb 0.6 oz) 08/19/2016 12:00 AM CUSTOMER ACCOUNT REPRESENTATIVE Height 163 cm (5' 4.17) 08/19/2016 12:00 AM CUSTOMER ACCOUNT REPRESENTATIVE Body Mass Index 32.44 08/19/2016 12:00 AM CUSTOMER ACCOUNT REPRESENTATIVE documented in this encounter Progress Notes * [...] back pain, mostly on left side. Derick 911 TELECOMMUNICATOR History of Present Illness Octavio developed left [...] TO 6 HOURS NEEDED; Therapy: 05Oct2012 to (Evaluate:52Hbe0166); Last Rx:19Mat5472 Ordered 3. Cyclobenzaprine HCl - 10 MG Oral Tablet; TAKE 1/2 TO 1 TABLET THREE TIMES DAILY; Therapy: 30Sep2010 to (Evaluate:38Eyd6540) Requested for: 07Jul2016; Last Rx:07Jul2016 Ordered 4. Fluticasone Propionate 50 MCG/ACT Nasal Suspension; INSTILL 1 SPRAY DAILY IN EACH NOSTRIL; Therapy: 17Apr2009 to (Evaluate:15Dec2016) Requested for: 98Tag5202; Last Rx:11Dvn3508 Ordered 5. Hydrocortisone 2.5 % External Cream; APPLY SPARINGLY TO AFFECTED AREA(S) TWICE DAILY; Therapy: 20Jul2015 to (Evaluate:28Jul2016) Requested for: 83Zex1530; Last Rx:67Fyf2888 Ordered 6. Loratadine 10 MG Oral Tablet; TAKE 1 TABLET BY MOUTH DAILY NEEDED; Therapy: 81Qas3452 to (Evaluate:12Sep2017) Requested for: 17Sep2016; Last Rx:17Sep2016 Ordered 7. Losartan Potassium 100 MG Oral Tablet; TAKE 1 TABLET BY MOUTH ONCE DAILY; Therapy: 54Bcf9853 to (Evaluate:18Jul2017) Requested for: 23Jul2016; Last Rx:23Jul2016 Ordered 8. MetFORMIN HCl ER 500 MG Oral Tablet Extended Release 24 Hour; TAKE 4 TABLETS( 2000MG) BY MOUTH ONCE DAILY; Therapy: 90Fea8383 to (Evaluate:25Jul2017) Requested for: 30Jul2016; Last Rx:30Jul2016 Ordered 9. One-Daily Multi Vitamins Oral Tablet; TAKE 1 TABLET DAILY; Therapy: (Recorded:23Jul2012) to Recorded 10. Simvastatin 20 MG Oral Tablet; TAKE ONE TABLET BY MOUTH DAILY; Therapy: 88Zlq0711 to (Evaluate:18Jul2017) Requested for: 23Jul2016; Last Rx:23Jul2016 Ordered 11. Vitamin D3 1000 UNIT Oral Tablet; takes 2 tablets daily; Therapy: (Recorded:51Oeb4133) to Recorded Allergies 1. Ultram TABS Vitals [...] Cortney Chandra M.D.; Dec 18 2016 8:57PM CUSTOMER ACCOUNT REPRESENTATIVE documented in this encounter H&P Notes * [...] Metabolic Panel; Status:Resulted - Requires Verification; Done: 53Tcz6527 10:48AM Controlled diabetes mellitus Hemoglobin A1C; Status:Resulted - Requires Verification; Done: 95Upo3050 10:48AM Lipid Panel; Status:Resulted - Requires Verification; Done: 02Sgk4139 10:48AM Microalbumin (Random); Status:Resulted - Requires Verification; Done: 42Xzq2888 10:48AM Fatigue, Screening for thyroid disorder TSH; Status:Resulted - Requires Verification; Done: 16Rdl5207 10:48AM Health Maintenance Prevnar 13 Intramuscular Suspension Visit for screening mammogram Mammo Screen Bilat - 2109; Status:Resulted - Requires Verification; Done: 25Duj9576 11:12AM Vitamin D deficiency Drawing Fee; Status:Complete; Done: 51Ldt6273 Vitamin D Total [facility]; Status:Resulted - Requires Verification; Done: 27Agi2308 10:48AM Reason For Visit Pt. presents today for medicare px. Derick MATTHEWN History of Present Illness Octavio is here for annual Medicare wellness exam. She also is due for her labs for diabetes. She is felling well but does c/o pain in her left upper arm since an injury at [facility] [place]. She slipped on the ice getting out [...] Aspirin 81 MG TABS; ONE DAILY; Last Rx:45Uce5320 Ordered 2. Cheratussin AC 100-10 MG/5ML Oral Syrup; TAKE 10 ML EVERY 4 TO 6 HOURS NEEDED; Therapy: 05Oct2012 to (Evaluate:95Bop1540); Last Rx:01Axi1493 Ordered 3. Cyclobenzaprine HCl - 10 MG Oral Tablet; TAKE 1/2 TO 1 TABLET THREE TIMES DAILY; Therapy: 30Sep2010 to (Evaluate:39Dzi1444) Requested for: 07Jul2016; Last Rx:07Jul2016 Ordered 4. Fluticasone Propionate 50 MCG/ACT Nasal Suspension; INSTILL 1 SPRAY DAILY IN EACH NOSTRIL; Therapy: 17Apr2009 to (Evaluate:15Dec2016) Requested for: 18Fmu6363; Last Rx:18Luj8865 Ordered 5. Hydrocortisone 2.5 % External Cream; APPLY SPARINGLY TO AFFECTED AREA(S) TWICE DAILY; Therapy: 20Jul2015 to (Evaluate:28Jul2016) Requested for: 02Ylw5022; Last Rx:85Hql1861 Ordered 6. Loratadine 10 MG Oral Tablet; TAKE 1 TABLET BY MOUTH DAILY NEEDED; Therapy: 44Xnm2374 to (Evaluate:62Orb2293) Requested for: 93Ptd3705; Last Rx:77Qiw1802 Ordered 7. Losartan Potassium 100 MG Oral Tablet; TAKE 1 TABLET BY MOUTH ONCE DAILY; Therapy: 24Lye3945 to (Evaluate:18Jul2017) Requested for: 23Jul2016; Last Rx:23Jul2016 Ordered 8. MetFORMIN HCl ER 500 MG Oral Tablet Extended Release 24 Hour; TAKE 4 TABLETS( 2000MG) BY MOUTH ONCE DAILY; Therapy: 58Qay5805 to (Evaluate:25Jul2017) Requested for: 30Jul2016; Last Rx:30Jul2016 Ordered 9. One-Daily Multi Vitamins Oral Tablet; TAKE 1 TABLET DAILY; Therapy: (Recorded:23Jul2012) to Recorded 10. Simvastatin 20 MG Oral Tablet; TAKE ONE TABLET BY MOUTH DAILY; Therapy: 36Gjt7194 to (Evaluate:18Jul2017) Requested for: 23Jul2016; Last Rx:23Jul2016 [...] affect. Results/Data Mammo Screen Bilat - 2109 62Pdg4325 11:12AM Cortney Chandra Test Name Result Flag [...] Author: MAME ISRAEL M.D. Basic Metabolic Panel 87Sjl7204 10:48AM Cortney Chandra Test Name Result Flag [...] Dioxide 21 mmol/L L 22-30 Hemoglobin A1C 97Ble2596 10:48AM Cortney Chandra Test Name Result Flag Reference Hemoglobin A1C 7.5 % H <5.7 Prediabetes 5.7% - 6.4% Diabetes >=6.5% Please note reference change as of 2015.. Estimated Average Glucose 169 mg/dl The eAG (estimated Average Glucose) is recommended by the [place] [employer] to assist with patient education during glucose monitoring. Lipid Panel 07Fre0363 10:48AM Cortney Chandra Test Name Result Flag Reference Cholesterol 166 mg/dl < 200 Triglycerides 144 mg/dl < 150 HDL 56 mg/dl 40 or > LDL - Calculated 81 mg/dl < 130 *L/H Ratio 1.5 1.0-4.7 TSH 42Hyg4976 10:48AM Cortney Chandra Test Name Result Flag Reference TSH 0.804 uIU/ml 0.30-4.70 Vitamin D Total [facility] 58Wov7931 10:48AM Cortney Chandra Test Name Result Flag Reference Vitamin D Total - [facility] 43.1 ng/ml 30-100 Deficiency <10ng/mL Insufficiency 10-29 ng/mL Sufficiency 30-100 ng/mL Possible Toxicity >100 ng/mL Microalbumin (Random) 79Afa5256 10:48AM Cortney Chandra Test Name Result Flag Reference Microalbumin, Raw 6.9 mg/L < 20 Microalbumin/Creat Ratio 4.4 ug/mg < 30 ug Microalb/mg UA Creat Creat, Urine 155.4 mg/dl Signatures Electronically signed by : Cortney Chandra M.D.; Aug 26 2016 8:22AM CUSTOMER ACCOUNT REPRESENTATIVE documented in this encounter Plan of Treatment Not on file documented as of this encounter Visit Diagnoses Not on filedocumented in this encounter Care Teams Cake Batter Mixer Relationship Specialty Start Date End Date Unknown, Provider . HIRAM PEGUERO [address] PCP - General 03/26/18 04/29/19 Cortney Chandra MD [address] [place] [address] PCP - General Family Medicine 04/30/19 Cortney Chandra MD [address] [place] [place] [address] PCP Family Medicine 04/29/19 04/29/19 [facility] 03/30/23 Primary Eye Care 03/30/23 documented as of this encounter Additional Source Comments PLEASE NOTE: Replies to this message will not be received.[facility] and [facility]
--- OUTSIDE RECORDS SUMMARY | 2024-04-05 09:34 | XMS_ITS | Encounter Summary ---
Author Organization [employer] Address [address] [place] [address] Care Team Providers Care Renal Dialysis Rn Name Role Phone Unknown, Provider Primary Care Provider Unavaila ble Cortney Chandra MD Unavailable [phone] Cortney Chandra MD Primary Care Provider [phone] Encounter Details Date Type Department Care Team (Late st Contact Info) Description 08/10/2015 Historical Conversion [facility] Family Medicine [address] [place] [address] [place] [address] Cortney Chandra MD [address] [place] [address] Social History Tobacco Use Types [...] for c/o pain/tingling in Rt. arm. 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 Allergic rhinitis [...] 81 MG Oral Tablet; ONE DAILY; Last Rx:06Ory7289 Ordered 2. Calcium 600/Vitamin D3 TABS; 1 [...] DAILY IN EACH NOSTRIL; Therapy: 17Apr2009 to (Evaluate:50Uca3371) Requested for: 09May2014; Last Rx:09May2014 Ordered 6. Hydrocortisone 2.5 % External Cream; APPLY SPARINGLY TO AFFECTED AREA(S) TWICE DAILY; Therapy: 20Jul2015 to (Last Rx:20Jul2015) Requested for: 20Jul2015 Ordered 7. Loratadine 10 MG Oral Tablet; TAKE 1 TABLET BY MOUTH DAILY NEEDED; Therapy: 69Wmj1745 to (Evaluate:93Rae6085) Requested for: 19Jak9822; Last Rx:05Omf0424 Ordered 8. Losartan Potassium 100 MG Oral Tablet; TAKE 1 TABLET BY MOUTH ONCE DAILY; Therapy: 75Uit7652 to (Evaluate:14Jul2016) Requested for: 20Jul2015; Last Rx:20Jul2015 Ordered 9. MetFORMIN HCl ER 500 MG Oral Tablet Extended Release 24 Hour; TAKE 4 TABLETS( 2000MG) BY MOUTH ONCE DAILY; Therapy: 63Zsi1710 to (Evaluate:14Jul2016) Requested for: 20Jul2015; Last Rx:20Jul2015 [...] TAKE ONE TABLET BY MOUTH DAILY; Therapy: 39Suh1319 to (Evaluate:14Jul2016) Requested for: 20Jul2015; Last Rx:20Jul2015 [...] Vital Signs [Data Includes: Current Encounter] Recorded: 15Ije8072 02:56PM Blood Pressure 136 / 92, RUE, [...] traction would benefit Status: Active Requested for: 96Vqz8114 Care Summary provided. : Yes With: : [facility] PT/OT DEPT Related: : No Encounter: : No Phone Number to Contact Patient: : home [phone] to Provider, Practice or Agency: : PT at [facility] 2. PredniSONE 20 MG Oral Tablet; TAKE 2 TABLET DAILY Signatures Electronically signed by : Cortney Chandra M.D.; Aug 22 2015 9:54AM INCIDENT RESPONSE LEAD documented in this encounter Plan of Treatment Not on file documented as of this encounter Visit Diagnoses Not on filedocumented in this encounter Care Teams Renal Dialysis Rn Relationship Specialty Start Date End Date Unknown, Provider . HIRAM PEGUERO [address] PCP - General 03/26/18 04/29/19 Cortney Chandra MD [address] [place] [address] PCP - General Family Medicine 04/30/19 Cortney Chandra MD [address] [place] [address] PCP Family Medicine 04/29/19 04/29/19 [facility] 03/30/23 Primary Eye Care 03/30/23 documented as of this encounter Additional Source Comments PLEASE NOTE: Replies to this message will not be received.[facility] and [facility]
--- OUTSIDE RECORDS SUMMARY | 2024-04-05 09:34 | XMS_ITS | Encounter Summary ---
Author Organization [employer] Address [address] [place] [address] Care Team Providers Care Body Masker Name Role Phone Unknown, Provider Primary Care Provider UnavailCortney Dye MD Unavailable [phone] Cortney Chandra MD Primary Care Provider [phone] Encounter Details Date Type Department Care Team (Late st Contact Info) Description 06/14/2018 Historical Conversion [facility] Family Medicine [address] [address] Rosemary Aquino, AUTOMOTIVE UPHOLSTERER,DAMPER WORKER [address] [place] [address] Social History Tobacco Use Types Packs/Day Years Used Date Smoking Tobacco: Never Assessed Sex and Gender Information Value Date Recorded Sex Assigned at Not on file Gender Identity Female 01/16/2023 2:23 PM CDT Sexual Orientation Not on file documented as of this encounter Last Filed Vital Signs Vital Sign Reading Time Taken Comments Blood Pressure 144/88 06/14/2018 12:00 AM HISTORY INSTRUCTOR Pulse - - Temperature - - Respiratory Rate - - Oxygen Saturation - - Inhaled Oxygen Concentration - - Weight 87 kg (191 lb 12.8 oz) 06/14/2018 12:00 A M HISTORY INSTRUCTOR Height - - Body Mass Index 32.75 09/25/2017 12:00 AM CDT documented in this encounter Plan of Treatment Not on file documented as of this encounter Visit Diagnoses Not on filedocumented in this encounter Care Teams Body Masker Relationship Specialty Start Date End Date Unknown, Provider . HIRAM PEGUERO [address] PCP - General 03/26/18 04/29/19 Cortney Chandra MD [address] [place] [address] PCP - General Family Medicine 04/30/19 Cortney Chandra MD [address] [place] [address] PCP Family Medicine 04/29/19 04/29/19 [facility] 03/30/23 Primary Eye Care 03/30/23 documented as of this encounter Additional Source Comments PLEASE NOTE: Replies to this message will not be received.[facility] and [facility]
--- OUTSIDE RECORDS SUMMARY | 2024-04-05 09:34 | XMS_ITS | Encounter Summary ---
Author Organization [employer] Address [address] [place] [address] Care Team Providers Care Certified Nuclear Medicine Technologist Name Role Phone Unknown, Provider Primary Care Provider Unavaila Cortney Gomez MD Unavailable [phone] Cortney Chandra MD Primary Care Provider [phone] Encounter Details Date Type Department Care Team (Late st Contact Info) Description 11/07/2014 Historical Conversion [facility] Family Medicine [address] [place] [address]. [place] [address] Cortney Chandra MD [address] [place] [address] Social History Tobacco Use Types [...] on filedocumented in this encounter Care Teams Certified Nuclear Medicine Technologist Relationship Specialty Start Date End Date Unknown, Provider . HIRAM PEGUERO [address] PCP - General 03/26/18 04/29/19 Cortney Chandra MD [address] [place] [address] PCP - General Family Medicine 04/30/19 Cortney Chandra MD [address] [place] [address] PCP Family Medicine 04/29/19 04/29/19 [facility] 03/30/23 Primary Eye Care 03/30/23 documented as of this encounter Additional Source Comments PLEASE NOTE: Replies to this message will not be received.[facility]
--- OUTSIDE RECORDS SUMMARY | 2024-04-05 09:34 | XMS_ITS | Encounter Summary ---
Author Organization [employer] Address [address] [place] [address] Care Team Providers Care Lactation Consultant Name Role Phone Unknown, Provider Primary Care Provider Unavaila Cortney Gomez MD Unavailable [phone] Cortney Chandra MD Primary Care Provider [phone]- [phone] Encounter Details Date Type Department Care Team (Late st Contact Info) Description 08/13/2018 Historical Conversion [facility] Family Medicine [address] [place] [address] Rosemary Aquino APRN,MOLD DRESSER [address] [place] [address] Social History Tobacco Use Types Packs/Day Years Used Date Smoking Tobacco: Never Assessed Sex and Gender Information Value Date Recorded Sex Assigned at Not on file Gender Identity Female 01/16/2023 2:23 PM CDT Sexual Orientation Not on file documented as of this encounter Progress Notes * Rosemary Aquino, CHALINO,MOLD DRESSER - 08/13/2018 12:00 AM CST Assessment 1. [...] - Requires Verification,Retrospective By Protocol Authorization; Done: [id number] 02:29PM Reason For Visit Patient in with [...] Aspirin 81 MG TABS; ONE DAILY; Last Rx:[id number] Ordered 2. Cyclobenzaprine HCl - 10 MG Oral Tablet; TAKE 1/2 TO 1 TABLET THREE TIMES DAILY; Therapy: 30Sep2010 to (Evaluate:99Len3563) Requested for: 07Jul2016; Last Rx:07Jul2016 Ordered 3. Fluticasone Propionate 50 MCG/ACT Nasal Suspension; INSTILL 1 SPRAY DAILY IN EACH NOSTRIL; Therapy: 17Apr2009 to (Evaluate:14Apr2018) Requested for: 16Oct2017; Last Rx:16Oct2017 Ordered 4. Hydrocortisone 2.5 % External Cream; APPLY SPARINGLY TO AFFECTED AREA(S) TWICE DAILY; Therapy: 20Jul2015 to (Evaluate:83Kya4013) Requested for: 17Jul2017; Last Rx:17Jul2017 Ordered 5. Loratadine 10 MG Oral Tablet; TAKE 1 TABLET BY MOUTH DAILY NEEDED; Therapy: 83Iku5278 to (Evaluate:12Sep2018) Requested for: 17Sep2017; Last Rx:17Sep2017 Ordered 6. Losartan Potassium 100 MG Oral Tablet; TAKE 1 TABLET BY MOUTH ONCE DAILY; Therapy: 63Xts2443 to (Evaluate:10Jul2019) Requested for: 15Jul2018; Last Rx:15Jul2018 Ordered 7. metFORMIN HCl ER 500 MG Oral Tablet Extended Release 24 Hour; TAKE 4 TABLETS( 2000MG) BY MOUTH ONCE DAILY; Therapy: 29Yxw1635 to (Evaluate:18Jul2019) Requested for: 23Jul2018; Last Rx:23Jul2018 Ordered 8. One-Daily Multi Vitamins Oral Tablet; TAKE 1 TABLET DAILY; Therapy: (Recorded:23Jul2012) to Recorded 9. Pyridium 100 MG Oral Tablet; TAKE 1 TABLET 3 TIMES DAILY AFTER MEALS NEEDED; Therapy: 12Exs2228 to (Last Rx:43Uxc9282) Requested for: 14Jun2018 Ordered 10. Simvastatin 20 MG Oral Tablet; TAKE ONE TABLET BY MOUTH DAILY; Therapy: 93Mup3122 to (Evaluate:10Jul2019) Requested for: 15Jul2018; Last Rx:15Jul2018 Ordered 11. Ventolin HFA 108 (90 Base) MCG/ACT Inhalation Aerosol Solution; INHALE 1 TO 2 PUFFS EVERY 4 TO 6 HOURS NEEDED; Therapy: 06Mar2017 to (Last Rx:51Fis4556) Requested for: 80Cvx2493 Ordered 12. Vitamin D3 1000 UNIT Oral Tablet; takes 2 tablets daily; Therapy: (Recorded:88Idp2291) to Recorded Allergies 1. Ultram TABS Vitals [...] Urinalysis-Color YEL Urinalysis- Appearance CLOUD A Urinalysis-Sp [place] 1.010 1.005-1.030 Urinalysis-pH 5.5 5.0-7.5 Urinalysis-Protein NEG NEGATIVE Urinalysis- Glucose NEG NEGATIVE Urinalysis-Ketone TRACE A NEGATIVE Urinalysis- Bilirub NEG NEGATIVE Urinalysis- Blood 3+ A NEGATIVE Urinalysis-Urobil 0.2 0.2-1.0 Urinalysis-Nitrite NEG NEGATIVE Urinalysis-Leuk 3+ A NEGATIVE Urinalysis-WBC TNTC A 0-4 Urinalysis-RBC TNTC A 0-4 Urinalysis-Epith FEW Urinalysis-Hyal Cast NEG Urinalysis- Bacteria MOD A UrinalysisA Urinalysis-Color YEL Urinalysis- Appearance CLOUD A Urinalysis-Sp [place] 1.010 1.005-1.030 Urinalysis-pH 5.5 5.0-7.5 Urinalysis-Protein NEG NEGATIVE Urinalysis- Glucose NEG NEGATIVE Urinalysis-Ketone TRACE A NEGATIVE Urinalysis- Bilirub NEG NEGATIVE Urinalysis- Blood 3+ A NEGATIVE Urinalysis-Urobil 0.2 0.2-1.0 Urinalysis-Nitrite NEG NEGATIVE Urinalysis-Leuk 3+ A NEGATIVE Urinalysis-WBC TNTC A 0-4 Urinalysis-RBC TNTC A 0-4 Urinalysis-Epith FEW Urinalysis-Hyal Cast NEG Urinalysis- Bacteria MOD A UrinalysisA Signatures Electronically signed by : Rosemary Aquino RN MOLD DRESSER RN,MOLD DRESSER; Aug 13 2018 3:19PM TERRAZZO FINISHER documented in this encounter Plan of Treatment Not on file documented as of this encounter Visit Diagnoses Not on filedocumented in this encounter Care Teams Lactation Consultant Relationship Specialty Start Date End Date Unknown, Provider . HIRAM PEGUERO [address] PCP - General 03/26/18 04/29/19 Cortney Chandra MD [address] [place] [address] PCP - General Family Medicine 04/30/19 Cortney Chandra MD [address] [place] [address] PCP Family Medicine 04/29/19 04/29/19 [facility] 03/30/23 Primary Eye Care 03/30/23 documented as of this encounter Additional Source Comments PLEASE NOTE: Replies to this message will not be received.[facility] and [facility]
--- OUTSIDE RECORDS SUMMARY | 2024-04-05 09:34 | XMS_ITS | Encounter Summary ---
Author Organization [employer] Address [address] [place] [address] Care Team Providers Care Hvac/R Service Technician Name Role Phone Unknown, Provider Primary Care Provider Unavaila ble Cortney Chandra MD Unavailable [phone] Cortney Chandra MD Primary Care Provider [phone] Encounter Details Date Type Department Care Team (Late st Contact Info) Description 07/20/2015 Historical Conversion [facility] Family Medicine [address] [place] [address]. [place] [address] Cortney Chandra MD [address] [place] [address] Social History Tobacco Use Types Packs/Day Years Used Date Smoking Tobacco: Never Assessed Sex and Gender Information Value Date Recorded Sex Assigned at Not on file Gender Identity Female 01/16/2023 2:23 PM CDT Sexual Orientation Not on file documented as of this encounter Last Filed Vital Signs Vital Sign Reading Time Taken Comments Blood Pressure 132/76 07/20/2015 12:00 AM DISC RULER OPERATOR Pulse - - Temperature - - Respiratory Rate - - Oxygen Saturation - - Inhaled Oxygen Concentration - - Weight 87.1 kg (192 lb 0.3 oz) 07/20/2015 12:00 AM DISC RULER OPERATOR Height 164 cm (5' 4.57) 07/20/2015 12:00 AM DISC RULER OPERATOR Body Mass Index 32.79 07/20/2015 12:00 AM DISC RULER OPERATOR documented in this encounter Plan of Treatment Not on file documented as of this encounter Visit Diagnoses Not on filedocumented in this encounter Care Teams Hvac/R Service Technician Relationship Specialty Start Date End Date Unknown, Provider . HRIAM PEGUERO [address] PCP - General 03/26/18 04/29/19 Cortney Chandra MD [address] [place] [address] PCP - General Family Medicine 04/30/19 Cortney Chandra MD [address] [place] [address] PCP Family Medicine 04/29/19 04/29/19 [facility] 03/30/23 Primary Eye Care 03/30/23 documented as of this encounter Additional Source Comments PLEASE NOTE: Replies to this message will not be received.[facility] and [facility]
--- OUTSIDE RECORDS SUMMARY | 2024-04-05 09:34 | XMS_ITS | Encounter Summary ---
Author Organization [employer] Address [address] [place] [address] Care Team Providers Care Assistant Food Service Director Name Role Phone Cortney Chandra MD Primary Care Provider [phone] Reason for Visit * Reason Comments Refill Request Encounter Details Date Type Department Care Team (Late st Contact Info) Description 03/01/2024 Refill [facility] Medicine [address] [place], [place] [address] Cortney Chandra MD [address] [place] [address] Dx: Essential hypertension (Primary Dx) Social History Tobacco Use Types Packs/Day Years Used Date Smoking Tobacco: Never Smokeless Tobacco: Never Alcohol Use Standard Drinks/Week Comments Never 0 (1 standard drink = 0.6 oz pur e alcohol) [facility] Utilities Answer Date Recorded In the past 12 months has [facility] [email or web address], gas, oil, or water [employer] threatened to shut off services in your [...] How often do you attend chur or jainism services? More than 4 times per year 08/15/2023 Do you belong to any clubs o r organizations such as samaritan groups, unions, fraternal or athletic groups, or [...] and heating? Not hard at all 08/15/2023 [facility] - [...] No 03/24/2023 Housing Stability Vital Sign Answer Sridahr e Recorded In the last 12 months, [...] hypertension documented in this encounter Care Teams Assistant Food Service Director Relationship Specialty Start Date End Date Cortney Chandra MD [address] [place] [address] PCP - General Family Medicine 04/30/19 [facility] 03/30/23 Primary Eye Care 03/30/23 documented as of this encounter Additional Source Comments PLEASE NOTE: Replies to this message will not be received.[facility] and [facility]
--- OUTSIDE RECORDS SUMMARY | 2024-04-05 09:34 | XMS_ITS | Encounter Summary ---
Author Organization [employer] Address [address] [place] [address] Care Team Providers Care Test Grader Name Role Phone Unknown, Provider Primary Care Provider Unavaila Cortney Gomez MD Unavailable [phone] Cortney Chandra MD Primary Care Provider [phone] Encounter Details Date Type Department Care Team (Late st Contact Info) Description 03/26/2018 Historical Conversion [facility] Family Medicine [address] [place] [address]. [place] [address] Angeles Hartman, CHALINO,SUPERVISOR LABOR GANG [address] [place] [address] Social History Tobacco Use Types Packs/Day Years Used Date Smoking Tobacco: Never Assessed Sex and Gender Information Value Date Recorded Sex Assigned at Not on file Gender Identity Female 01/16/2023 2:23 PM CDT Sexual Orientation Not on file documented as of this encounter Progress Notes * Angeles Hartman, CHALINO,SUPERVISOR LABOR GANG - 03/26/2018 12:00 AM CDT Assessment 1. [...] or if you almost fall.; Status:Complete; Done: [id number] At your visit today we screened for [...] or seek medical attention immediately.; Status:Complete; Done: 79Yls8959 Dystrophic nail, Onychomycosis Fungus Culture (Skin.Hair,Nails ONLY); Status:Active; Requested for:38Nyy5981; culture skin source : left thumb nail SocHx: Never smoked Never Smoked: Since tobacco use can have significant health risks, you are helping yourself and others stay healthy by never smoking.; Status:Complete; Done: 49Jdj8241 Reason For Visit Discoloration of finger nails [...] Aspirin 81 MG TABS; ONE DAILY; Last Rx:25Cjf2814 Ordered 2. Cheratussin AC 100-10 MG/5ML Oral Syrup; TAKE 10 ML EVERY 4 TO 6 HOURS NEEDED; Therapy: 05Oct2012 to (Evaluate:63Yyw1051); Last Rx:74Awg4726 Ordered 3. Cyclobenzaprine HCl - 10 MG Oral Tablet; TAKE 1/2 TO 1 TABLET THREE TIMES DAILY; Therapy: 30Sep2010 to (Evaluate:71Pcu7138) Requested for: 07Jul2016; Last Rx:07Jul2016 Ordered 4. Fluticasone Propionate 50 MCG/ACT Nasal Suspension; INSTILL 1 SPRAY DAILY IN EACH NOSTRIL; Therapy: 17Apr2009 to (Evaluate:14Apr2018) Requested for: 16Oct2017; Last Rx:16Oct2017 Ordered 5. Hydrocortisone 2.5 % External Cream; APPLY SPARINGLY TO AFFECTED AREA(S) TWICE DAILY; Therapy: 20Jul2015 to (Evaluate:20Aau6280) Requested for: 17Jul2017; Last Rx:17Jul2017 Ordered 6. Loratadine 10 MG Oral Tablet; TAKE 1 TABLET BY MOUTH DAILY NEEDED; Therapy: 85Rpg4691 to (Evaluate:12Sep2018) Requested for: 17Sep2017; Last Rx:17Sep2017 Ordered 7. Losartan Potassium 100 MG Oral Tablet; TAKE 1 TABLET BY MOUTH ONCE DAILY; Therapy: 71Pev1149 to (Evaluate:12Jul2018) Requested for: 17Jul2017; Last Rx:17Jul2017 Ordered 8. MetFORMIN HCl ER 500 MG Oral Tablet Extended Release 24 Hour; TAKE 4 TABLETS( 2000MG) BY MOUTH ONCE DAILY; Therapy: 02Ymm9613 to (Evaluate:12Jul2018) Requested for: 17Jul2017; Last Rx:17Jul2017 Ordered 9. One-Daily Multi Vitamins Oral Tablet; TAKE 1 TABLET DAILY; Therapy: (Recorded:23Jul2012) to Recorded 10. Simvastatin 20 MG Oral Tablet; TAKE ONE TABLET BY MOUTH DAILY; Therapy: 49Car2015 to (Evaluate:12Jul2018) Requested for: 17Jul2017; Last Rx:17Jul2017 Ordered 11. Ventolin HFA 108 (90 Base) MCG/ACT Inhalation Aerosol Solution; INHALE 1 TO 2 PUFFS EVERY 4 TO 6 HOURS NEEDED; Therapy: 06Mar2017 to (Last Rx:06Mar2017) Requested for: 06Mar2017 Ordered 12. Vitamin D3 1000 UNIT Oral Tablet; takes 2 tablets daily; Therapy: (Recorded:23Vwm5821) to Recorded Allergies 1. Ultram TABS Vitals [...] other 8 fingers are covered with nail vietnamese but the 2 thumbs show blackdiscoloration under [...] Electronically signed by : Angeles Hartman RN SUPERVISOR LABOR GANG RN,SUPERVISOR LABOR GANG; Mar 26 2018 1:29PM RESTAURANT HOURLY MANAGER documented in this encounter Plan of Treatment Not on file documented as of this encounter Visit Diagnoses Not on filedocumented in this encounter Care Teams Test Grader Relationship Specialty Start Date End Date Unknown, Provider . HIRAM PEGUERO [address] PCP - General 03/26/18 04/29/19 Cortney Chandra MD [address] [place] [address] PCP - General Family Medicine 04/30/19 Cortney Chandra MD [address] [place] [address] PCP Family Medicine 04/29/19 04/29/19 [facility] 03/30/23 Primary Eye Care 03/30/23 documented as of this encounter Additional Source Comments PLEASE NOTE: Replies to this message will not be received.[facility]
--- OUTSIDE RECORDS SUMMARY | 2024-04-05 09:34 | XMS_ITS | Encounter Summary ---
Author Organization [employer] Address [address] [place] [address] Care Team Providers Care Acid Dumper Name Role Phone Unknown, Provider Primary Care Provider UnavailCortney Dye MD Unavailable [phone] Cortney Chandra MD Primary Care Provider [phone] Encounter Details Date Type Department Care Team (Late st Contact Info) Description 12/25/2016 Historical Conversion [facility] Family Medicine [address] [place] [address]. [place] [address] Social History Tobacco Use Types Packs/Day Years [...] Body Mass Index 31.77 08/19/2016 12:00 AM GRADUATE RN documented in this encounter Plan of Treatment Not on file documented as of this encounter Visit Diagnoses Not on filedocumented in this encounter Care Teams Acid Dumper Relationship Specialty Start Date End Date Unknown, [place] [address] PCP - General 03/26/18 04/29/19 Cortney Chandra MD [address] [place] [address] PCP - General Family Medicine 04/30/19 Cortney Chandra MD [address] [place] [address] PCP Family Medicine 04/29/19 04/29/19 [facility] 03/30/23 Primary Eye Care 03/30/23 documented as of this encounter Additional Source Comments PLEASE NOTE: Replies to this message will not be received.[facility] and [facility]
--- OUTSIDE RECORDS SUMMARY | 2024-04-05 09:34 | XMS_ITS | Encounter Summary ---
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 More than 4 times [...] and heating? Not hard at all 08/15/2023 [facility] [...] place to sleep or slept in a long-term (including now)? No 08/15/2023 Depression (PHQ-9) Answer [...] Primary documented in this encounter Care Teams Supervising Broker Relationship Specialty Start Date End Date Cortney Chandra MD [address] [place] [address] PCP - General Family Medicine 04/30/19 [facility] 03/30/23 Primary Eye Care 03/30/23 documented as of this encounter Additional Source Comments PLEASE NOTE: Replies to this message will not be received.[facility] and [facility]
--- OUTSIDE RECORDS SUMMARY | 2024-04-05 09:34 | XMS_ITS | Encounter Summary ---
Author Organization [employer] Address [address] [place] [address] Care Team Providers Care Animal Behaviourist Name Role Phone Unknown, Provider Primary Care Provider UnavailCortney Dye MD Unavailable [phone] Cortney Chandra MD Primary Care Provider [phone] Encounter Details Date Type Department Care Team (Late st Contact Info) Description 09/03/2017 Historical Conversion [facility] Family Medicine [address] [facility] [place] [address] Rosemary Aquino APRN,JAVA LEAD DEVELOPER [address] [place] [address] Social History Tobacco Use Types Packs/Day Years Used Date Smoking Tobacco: Never Assessed Sex and Gender Information Value Date Recorded Sex Assigned at Not on file Gender Identity Female 01/16/2023 2:23 PM CDT Sexual Orientation Not on file documented as of this encounter Progress Notes * Rosemary Aquino, CHALINO,JAVA LEAD DEVELOPER - 09/03/2017 12:00 AM CST Assessment 1. [...] TO 6 HOURS NEEDED; Therapy: 05Oct2012 to (Evaluate:83Twy5329); Last Rx:08Aug2016 Ordered 3. Cyclobenzaprine HCl - 10 MG Oral Tablet; TAKE 1/2 TO 1 TABLET THREE TIMES DAILY; Therapy: 30Sep2010 to (Evaluate:63Sxj5380) Requested for: 07Jul2016; Last Rx:07Jul2016 Ordered 4. Fluticasone Propionate 50 MCG/ACT Nasal Suspension; INSTILL 1 SPRAY DAILY IN EACH NOSTRIL; Therapy: 17Apr2009 to (Evaluate:15Dec2016) Requested for: 64Glz4299; Last Rx:48Gpq2219 Ordered 5. Hydrocortisone 2.5 % External Cream; APPLY SPARINGLY TO AFFECTED AREA(S) TWICE DAILY; Therapy: 20Jul2015 to (Evaluate:96Qeu4689) Requested for: 17Jul2017; Last Rx:17Jul2017 Ordered 6. Loratadine 10 MG Oral Tablet; TAKE 1 TABLET BY MOUTH DAILY NEEDED; Therapy: 94Qya1616 to (Evaluate:12Sep2017) Requested for: 17Sep2016; Last Rx:17Sep2016 Ordered 7. Losartan Potassium 100 MG Oral Tablet; TAKE 1 TABLET BY MOUTH ONCE DAILY; Therapy: 06Pon0157 to (Evaluate:12Jul2018) Requested for: 17Jul2017; Last Rx:17Jul2017 Ordered 8. MetFORMIN HCl ER 500 MG Oral Tablet Extended Release 24 Hour; TAKE 4 TABLETS( 2000MG) BY MOUTH ONCE DAILY; Therapy: 35Cuc5913 to (Evaluate:12Jul2018) Requested for: 17Jul2017; Last Rx:17Jul2017 Ordered 9. One-Daily Multi Vitamins Oral Tablet; TAKE 1 TABLET DAILY; Therapy: (Recorded:23Jul2012) to Recorded 10. Simvastatin 20 MG Oral Tablet; TAKE ONE TABLET BY MOUTH DAILY; Therapy: 74Xxc8137 to (Evaluate:12Jul2018) Requested for: 17Jul2017; Last Rx:17Jul2017 [...] Electronically signed by : Rosemary Aquino RN JAVA LEAD DEVELOPER RN,JAVA LEAD DEVELOPER; Sep 03 2017 5:41PM POWER PLANT OPERATORS SUPERVISOR Electronically signed by Rosemary Aquino, SENIOR SOLUTIONS CONSULTANT,JAVA LEAD DEVELOPER at 11/25/2018 5:37 PM CDT documented in this encounter Plan of Treatment Not on file documented as of this encounter Visit Diagnoses Not on filedocumented in this encounter Care Teams Animal Behaviourist Relationship Specialty Start Date End Date Unknown, Provider . HIRAM PEGUERO [address] PCP - General 03/26/18 04/29/19 Cortney Chandra MD [address] [place] [address] PCP - General Family Medicine 04/30/19 Cortney Chandra MD [address] [place] [address] PCP Family Medicine 04/29/19 04/29/19 [facility] 03/30/23 Primary Eye Care 03/30/23 documented as of this encounter Additional Source Comments PLEASE NOTE: Replies to this message will not be received.[facility]
--- OUTSIDE RECORDS SUMMARY | 2024-04-05 09:35 | XMS_ITS | Encounter Summary ---
Author Organization [employer] Address [address] [place] [address] Care Team Providers Care Licensed Appraiser Name Role Phone Unknown, Provider Primary Care Provider Unavaila ble Cortney Chandra MD Unavailable [phone] Cortney Chandra MD Primary Care Provider [phone] Encounter Details Date Type Department Care Team (Late st Contact Info) Description 09/01/2014 Historical Conversion [facility] Family Medicine [address] [place] [address]. [place] [address] Cotrney Chandra MD [address] [place] [address] Social History Tobacco Use Types Packs/Day Years Used Date Smoking Tobacco: Never Assessed Sex and Gender Information Value Date Recorded Sex Assigned at Not on file Gender Identity Female 01/16/2023 2:23 PM CDT Sexual Orientation Not on file documented as of this encounter Last Filed Vital Signs Vital Sign Reading Time Taken Comments Blood Pressure 130/80 09/01/2014 12:00 AM PAYROLL MACHINE OPERATOR Pulse - - Temperature - - Respiratory Rate - - Oxygen Saturation - - Inhaled Oxygen Concentration - - Weight 85.7 kg (189 lb) 09/01/2014 12:00 AM PAYROLL MACHINE OPERATOR Height 163.8 cm (5' 4.5) 09/01/2014 12:00 AM CS T Body Mass Index 31.94 09/01/2014 12:00 AM PAYROLL MACHINE OPERATOR documented in this encounter Plan of Treatment Not on file documented as of this encounter Visit Diagnoses Not on filedocumented in this encounter Care Teams Licensed Appraiser Relationship Specialty Start Date End Date Unknown, Provider . HIRAM PEGUERO [address] PCP - General 03/26/18 04/29/19 Cortney Chandra MD [address] [place] [address] PCP - General Family Medicine 04/30/19 Cortney Chandra MD [address] [place] [address] PCP Family Medicine 04/29/19 04/29/19 [facility] 03/30/23 Primary Eye Care 03/30/23 documented as of this encounter Additional Source Comments PLEASE NOTE: Replies to this message will not be received.[facility] and [facility]
--- OUTSIDE RECORDS SUMMARY | 2024-04-05 09:35 | XMS_ITS | Encounter Summary ---
Author Organization [employer] Address [address] [place] [address] Care Team Providers Care Tube Former Operator Name Role Phone Unknown, Provider Primary Care Provider Unavaila ble Cortney Chandra MD Unavailable [phone] Cortney Chandra MD Primary Care Provider [phone] Encounter Details Date Type Department Care Team (Late st Contact Info) Description 11/18/2013 Historical Conversion [facility] Family Medicine [address] [place] [address] [place] [address] Cortney Chandra MD [address] [place] [address] Social History Tobacco Use Types [...] Encounter] Recorded by : Marya Lyons at 30Tjx5292 10:47AM Blood Pressure 118 / 70, LUE, [...] filedocumented in this encounter Care Teams Tube Former Operator Relationship Specialty Start Date End Date Unknown, Provider . HIRAM PEGUERO [address] PCP - General 03/26/18 04/29/19 Cortney Chandra MD [address] [place] [address] PCP - General Family Medicine 04/30/19 Cortney Chandra MD [address] [place] [address] PCP Family Medicine 04/29/19 04/29/19 [facility] 03/30/23 Primary Eye Care 03/30/23 documented as of this encounter Additional Source Comments PLEASE NOTE: Replies to this message will not be received.[facility] and [facility]
--- OUTSIDE RECORDS SUMMARY | 2024-04-05 09:35 | XMS_ITS | Continuity of Care Document ---
Author Organization [facility] Address [address] [place] [address] Phone Care Team Providers Care Brick Pitcher Name Role Phone Farooq LOZADA, PhD, Joaquim Unavailable Unavai lable Allergies, Adverse Reactions, Alerts Substance Reaction Status Criticality No Known Allergies Active No Inform ation Medications Medication Instructions Dosage Effective Dates (start - stop) Status Comments ACETAMINOPHEN (unknown strength) Not Available - Active ALENDRONATE SODIUM (unknown strength) Not Available - Active BISACODYL (unknown strength) Not Available - Active ESCITALOPRAM OXALATE (unknown strength) Not Available - Active FOLIC ACID (unknown strength) Not Available - Active LOSARTAN POTASSIUM (unknown strength) Not Available - Active METHYL B-12 (unknown strength) Not Available - Active METAMUCIL (unknown strength) Not Available - Active METFORMIN HCL (unknown strength) Not Available - Active OMEPRAZOLE (unknown strength) Not Available - Active OXYCODONE HCL (unknown strength) Not Available - Active PREDNISONE (unknown strength) Not Available - Active LAXATIVE (unknown strength) Not Available - Active SIMVASTATIN (unknown strength) Not Available - Active TUBERCULIN SYRINGE (unknown strength) Not Available - No Longer Active Procedures Procedure Date Office/Outpatient Visit,New, Mod 2023 Advance Directives Directive Yes / No Effective Date File Name No Information Encounters Encounter Description Practice Location Reason(s) For Visit Diagnoses Date Provider Providers Copied on Encounter Office/Outpati ent Visit,New, Mod [facility] , [address], [place], [place], [id number], [place] tel:[phone] [facility] Radiculopat hy, lumbar region Farooq March. [facility], [address], [place], [address], [place]. tel:[phone] Referring Provider: Joaquim Trivedi, [facility] [address], [place], [address]. tel:[phone] Family History Family Member Type Diagnosis Age At Onset Sister Problem (finding) Diabetes mellitus Payers Payer name Insurance type Covered green party ID Authordanie garcia(s) [employer] [facility] CI [id number] Social History Type Description Quantity Date Captured Comments Alcohol Use Details No Caffeine Use Details Unknown Tobacco Use Status No Information Smoking Status Never smoker Non-Smoking Tobacco Use Details : No Details Available : No Details Available Sex Female Vital Signs Date / Time: Height Weight BMI Pulse Rate Blood Pressure Temperature Respiratory Rate Body Surface Area Head Circumference Head Circ. Percentile Wt./Jer. Percentile BMI percentile Pulse Ox Inhaled Ox 1:56 PM 65.00 in 71.214 kg (157.00 lbs) 26.1 3 kg/m eter (2) Chief Complaint And Reason For Visit No Information Reason For Referral Reason For Referral No Information History Of Present Illness Encounter Date Complaint History Of Prese nt Illness No Information Functional Status Date Functional Assessmen t No Information Instructions Date Instruction Additional Infor mation No Information Assessments Type Assessment Date No Information Patient Care Teams Name Effective Dates (start - stop) Status Members No Information
== END 2024-04-05 09:31 | disposition home or self-care (01) ==
LOC: INJ CL 09:31
PROVIDERS: PCP Internal Medicine; Visit Provider Family Medicine
DX: M54.16 Radiculopathy, lumbar region (principal); M51.369 Other intervertebral disc degeneration, 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 or lower extremity pain
CPT/HCPCS: 64483; J1100; Q9966

== ENCOUNTER 2024-04-12 13:55 | Outpatient (CLI) | payer MEDICARE, SELFPAY ==
--- OUTSIDE RECORDS SUMMARY | 2024-04-12 14:11 | XMS_ITS | Encounter Summary ---
Author Organization [employer] Address [address] [place] [address] Care Team Providers Care Welcome Wagon Hostess Name Role Phone Unknown, Provider Primary Care Provider Unavaila ble Cortney Chandra MD Unavailable [phone] Cortney Chandra MD Primary Care Provider [phone] Encounter Details Date Type Department Care Team (Late st Contact Info) Description 08/30/2018 Historical Conversion [facility] [address] [place] [address] [place] [address] Cortney Chandra MD [address] [place] [address] Social History Tobacco Use Types [...] Plan Orders Fatigue Drawing Fee; Status:Complete; Done: [id number] Reason For Visit Pt. presents today for [...] Aspirin 81 MG TABS; ONE DAILY; Last Rx:[id number] Ordered 2. Cyclobenzaprine HCl - 10 MG Oral Tablet; TAKE 1/2 TO 1 TABLET THREE TIMES DAILY; Therapy: 30Sep2010 to (Evaluate:36Qgh0379) Requested for: 07Jul2016; Last Rx:07Jul2016 Ordered 3. Fluticasone Propionate 50 MCG/ACT Nasal Suspension; INSTILL 1 SPRAY DAILY IN EACH NOSTRIL; Therapy: 17Apr2009 to (Evaluate:14Apr2018) Requested for: 16Oct2017; Last Rx:16Oct2017 Ordered 4. Hydrocortisone 2.5 % External Cream; APPLY SPARINGLY TO AFFECTED AREA(S) TWICE DAILY; Therapy: 20Jul2015 to (Evaluate:41Tca2738) Requested for: 17Jul2017; Last Rx:17Jul2017 Ordered 5. Loratadine 10 MG Oral Tablet; TAKE 1 TABLET BY MOUTH DAILY NEEDED; Therapy: 78Bcx9557 to (Evaluate:12Sep2018) Requested for: 17Sep2017; Last Rx:17Sep2017 Ordered 6. Losartan Potassium 100 MG Oral Tablet; TAKE 1 TABLET BY MOUTH ONCE DAILY; Therapy: 35Rwb0965 to (Evaluate:10Jul2019) Requested for: 15Jul2018; Last Rx:15Jul2018 Ordered 7. metFORMIN HCl ER 500 MG Oral Tablet Extended Release 24 Hour; TAKE 4 TABLETS( 2000MG) BY MOUTH ONCE DAILY; Therapy: 09Qnb2501 to (Evaluate:18Jul2019) Requested for: 23Jul2018; Last Rx:23Jul2018 Ordered 8. One-Daily Multi Vitamins Oral Tablet; TAKE 1 TABLET DAILY; Therapy: (Recorded:23Jul2012) to Recorded 9. Pyridium 100 MG Oral Tablet; TAKE 1 TABLET 3 TIMES DAILY AFTER MEALS NEEDED; Therapy: 76Ziu7132 to (Last Rx:82Nxl0387) Requested for: 14Jun2018 Ordered 10. Simvastatin 20 MG Oral Tablet; TAKE ONE TABLET BY MOUTH DAILY; Therapy: 85Yfr2187 to (Evaluate:10Jul2019) Requested for: 15Jul2018; Last Rx:15Jul2018 Ordered 11. Ventolin HFA 108 (90 Base) MCG/ACT Inhalation Aerosol Solution; INHALE 1 TO 2 PUFFS EVERY 4 TO 6 HOURS NEEDED; Therapy: 06Mar2017 to (Last Rx:04Xxa1771) Requested for: 70Cgy2827 Ordered 12. Vitamin D3 1000 UNIT Oral Tablet; takes 2 tablets daily; Therapy: (Recorded:[id number]) to Recorded Allergies 1. Ultram TABS Vitals [...] Cortney Chandra M.D.; Sep 12 2018 4:16PM WASTE MACHINE TENDER documented in this encounter Plan of Treatment Not on file documented as of this encounter Visit Diagnoses Not on filedocumented in this encounter Care Teams Welcome Wagon Hostess Relationship Specialty Start Date End Date Unknown, Provider . [facility] [address] PCP - General 03/26/18 04/29/19 Cortney Chandra MD [address] [place] [address] PCP - General Family Medicine 04/30/19 Cortney Chandra MD [address] [place] [address] PCP Family Medicine 04/29/19 04/29/19 [facility] 03/30/23 Primary Eye Care 03/30/23 documented as of this encounter Additional Source Comments PLEASE NOTE: Replies to this message will not be received.[facility] and [facility]
--- OUTSIDE RECORDS SUMMARY | 2024-04-12 14:11 | XMS_ITS | Encounter Summary ---
Author Organization [employer] Address [address] [place] [address] Care Team Providers Care Towel Distributor Name Role Phone Cortney Chandra MD Primary Care Provider [phone] Reason for Visit * Reason Comments Refill Request Encounter Details Date Type Department Care Team (Late st Contact Info) Description 01/05/2024 Refill [facility] [address] [place], [place] [id number] Cortney Chandra MD [address] [place] [address] Dx: Rash (Primary Dx) Social History Tobacco Use Types Packs/Day Years Used Date Smoking Tobacco: Never Smokeless Tobacco: Never Alcohol Use Standard Drinks/Week Comments Never 0 (1 standard drink = 0.6 oz pur e alcohol) [facility] Utilities Answer Date Recorded In the past 12 months has [facility] [employer], gas, oil, or water [employer] threatened to shut off services in your [...] How often do you attend chur or anabaptist services? More than 4 times per year 08/15/2023 Do you belong to any clubs o r organizations such as episcopal groups, unions, fraternal or athletic groups, or [...] eruption documented in this encounter Care Teams Towel Distributor Relationship Specialty Start Date End Date Cortney Chandra MD [address] [place] [address] PCP - General Family Medicine 04/30/19 [facility] 03/30/23 Primary Eye Care 9/25/23 documented as of this encounter Additional Source Comments PLEASE NOTE: Replies to this message will not be received.[facility] and [facility]
--- OUTSIDE RECORDS SUMMARY | 2024-04-12 14:11 | XMS_ITS | Encounter Summary ---
Author Organization [employer] Address [address] [place] [address] Care Team Providers Care Milk And Cream Grader Name Role Phone Cortney Chandra MD Primary Care Provider [phone] Reason for Visit * Reason Comments Refill Request Encounter Details Date Type Department Care Team (Late st Contact Info) Description 01/12/2024 Refill [facility] Medicine [address] [place], [place] [address] Cortney Chandra MD [address] [place] [address] Dx: Type 2 diabetes mellitus with stage 1 chronic kidney disease, without long-term current use of insulin (HCC) Social History Tobacco Use Types Packs/Day Years Used Date Smoking Tobacco: Never Smokeless Tobacco: Never Alcohol Use Standard Drinks/Week Comments Never 0 (1 standard drink = 0.6 oz pur e alcohol) [facility] Utilities Answer Date Recorded In the past 12 months has e [employer], gas, oil, or water [employer] threatened to shut off services in your [...] How often do you attend chur or christian services? More than 4 times per year 08/15/2023 Do you belong to any clubs o r organizations such as hinduism groups, unions, fraLUX Assure or athletic groups, or school groups? No [...] heating? Not hard at all 08/15/2023 [facility] - Occupational [...] place to sleep or slept in a custodial (including now)? No 08/15/2023 Depression (PHQ-9) Answer [...] specified documented in this encounter Care Teams Milk And Cream Grader Relationship Specialty Start Date End Date Cortney Chandra MD [address] [place] [address] PCP - General Family Medicine 04/30/19 [facility] 03/30/23 Primary Eye Care 03/30/23 documented as of this encounter Additional Source Comments PLEASE NOTE: Replies to this message will not be received.[facility] and [facility]
--- OUTSIDE RECORDS SUMMARY | 2024-04-12 14:11 | XMS_ITS | Encounter Summary ---
Author Organization [employer] Address [address] [place] [address] Care Team Providers Care Hospital Internship Name Role Phone Unknown, Provider Primary Care Provider UnavailCortney Dye MD Unavailable [phone] Cortney Chandra MD Primary Care Provider [phone] Encounter Details Date Type Department Care Team (Late st Contact Info) Description 06/14/2018 Historical Conversion [facility] Family Medicine [address] [address] Rosemary Aquino, CARTON LETTERING MACHINE OPERATOR,ADMINISTRATIVE ASSISTANT DATA ENTRY [address] [place] [address] Social History Tobacco Use Types Packs/Day Years Used Date Smoking Tobacco: Never Assessed Sex and Gender Information Value Date Recorded Sex Assigned at Not on file Gender Identity Female 01/16/2023 2:23 PM CDT Sexual Orientation Not on file documented as of this encounter Last Filed Vital Signs Vital Sign Reading Time Taken Comments Blood Pressure 144/88 06/14/2018 12:00 AM LOW PRESSURE BOILER OPERATOR Pulse - - Temperature - - Respiratory Rate - - Oxygen Saturation - - Inhaled Oxygen Concentration - - Weight 87 kg (191 lb 12.8 oz) 06/14/2018 12:00 A M LOW PRESSURE BOILER OPERATOR Height - - Body Mass Index 32.75 09/25/2017 12:00 AM CDT documented in this encounter Plan of Treatment Not on file documented as of this encounter Visit Diagnoses Not on filedocumented in this encounter Care Teams Hospital Internship Relationship Specialty Start Date End Date Unknown, Provider . HIRAM PEGUERO [address] PCP - General 03/26/18 04/29/19 Cortney Chandra MD [address] [place] [address] PCP - General Family Medicine 04/30/19 Cortney Chandra MD [address] [place] [address] PCP Family Medicine 04/29/19 04/29/19 [facility] 03/30/23 Primary Eye Care 03/30/23 documented as of this encounter Additional Source Comments PLEASE NOTE: Replies to this message will not be received.[facility] and [facility]
--- OUTSIDE RECORDS SUMMARY | 2024-04-12 14:11 | XMS_ITS | Encounter Summary ---
Author Organization [employer] Address [address] [place] [address] Care Team Providers Care Senior Php Developer Name Role Phone Unknown, Provider Primary Care Provider Unavaila ble Cortney Chandra MD Unavailable [phone] Cortney Chandra MD Primary Care Provider [phone] Encounter Details Date Type Department Care Team (Late st Contact Info) Description 09/28/2018 Historical Conversion [facility] Family Medicine [address] [place] [address]. [place] [address] Cortney Chandra MD [address] [place] [address] Social History Tobacco Use Types [...] TABLET THREE TIMES DAILY; Therapy: 30Sep2010 to (Evaluate:97Txr0974) Requested for: 07Jul2016; Last Rx:07Jul2016 Ordered 3. Fluticasone Propionate 50 MCG/ACT Nasal Suspension; INSTILL 1 SPRAY DAILY IN EACH NOSTRIL; Therapy: 17Apr2009 to (Evaluate:14Apr2018) Requested for: 30Evg9765; Last Rx:16Oct2017 Ordered 4. Hydrocortisone 2.5 % External Cream; APPLY SPARINGLY TO AFFECTED AREA(S) TWICE DAILY; Therapy: 20Jul2015 to (Evaluate:25Pct8906) Requested for: 10Sep2018; Last Rx:10Sep2018 Ordered 5. Loratadine 10 MG Oral Tablet; TAKE 1 TABLET BY MOUTH DAILY NEEDED; Therapy: 99Jts1101 to (Last Rx:10Sep2018) Requested for: 10Sep2018 Ordered 6. Losartan Potassium 100 MG Oral Tablet; TAKE 1 TABLET BY MOUTH ONCE DAILY; Therapy: 57Gvn0600 to (Evaluate:10Jul2019) Requested for: 15Jul2018; Last Rx:15Jul2018 Ordered 7. metFORMIN HCl ER 500 MG Oral Tablet Extended Release 24 Hour; TAKE 4 TABLETS( 2000MG) BY MOUTH ONCE DAILY; Therapy: 14Hni0758 to (Evaluate:18Jul2019) Requested for: 23Jul2018; Last Rx:23Jul2018 Ordered 8. Pyridium 100 MG Oral Tablet; TAKE 1 TABLET 3 TIMES DAILY AFTER MEALS NEEDED; Therapy: 19Ojo1228 to (Last Rx:85Ild8213) Requested for: 38Vzy7103 Ordered 9. Simvastatin 20 MG Oral Tablet; TAKE ONE TABLET BY MOUTH DAILY; Therapy: 39Thi1690 to (Evaluate:10Jul2019) Requested for: 15Jul2018; Last Rx:15Jul2018 Ordered 10. Ventolin HFA 108 (90 Base) MCG/ACT Inhalation Aerosol Solution; INHALE 1 TO 2 PUFFS EVERY 4 TO 6 HOURS NEEDED; Therapy: 89Irz7615 to (Last Rx:71Rek9617) Requested for: 96Auc6845 Ordered 11. Vision Vitamins Oral Tablet; TAKE 1 TABLET DAILY; Therapy: 28Sep2018 to Recorded 12. Vitamin D3 1000 UNIT Oral Tablet; takes 2 tablets daily; Therapy: (Recorded:10Wrl6797) to Recorded Allergies 1. Ultram TABS Vitals [...] External ears and nose are normal to inspection.\R\p9Wdwfnfri membranes clear bilaterally.\R\b0Lips, teeth, and gum are normal, good dentition.\R\d7Nsvmxjgiqe is normal with no erythema, edema, exudate or lesions. Neck Neck is supple and symmetric. The trachea is midline with no masses.\R\q5Dchxhn thyroid with no thyromegaly. Pulmonary Lungs are clear to auscultation. Cardiovascular Normal rate and rhythm, normal S1 and S2, no murmurs.\R\f9Luwiaes pulses are 2+ bilaterally without bruit.\R\q8Fjihpzb pulses are 2+ bilaterally.\R\d8Pizqc pulses are 2+ bilaterally.\R\b0No edema and/or varicosities. Chest Normal breasts with no dimpling or skin changes appreciated.\R\b0No breast or axillary massespalpated. Abdomen hemorrhoids noted, not acutely inflamed\R\b0Soft, non-tender with no masses.\R\b0No hepatosplenomegaly.\R\b0No hernia appreciated.\R\t4Tggqde sphincter tone, no masses. Genitourinary Normal external genitalia and vagina, no lesions appreciated.\R\l3Hexphp meatus with no discharge.\R\b0The bladder is not distended, no tenderness.\R\c4Hwllux is absent.\R\a7Qfglkv is ab sent.\R\r8Reniek/Parametria are normal, no masses or tenderness. Lymphatic No cervical lymphadenopathy.\R\b0No axillary lymphadenopathy.\R\b0No inguinal lymphadenopathy. Musculoskeletal Normal gait and station.\R\m0Lmvwcn muscle strength and tone. Skin Skin and subcutaneous tissue are normal without rashes or lesions.\R\i0Cehljg turgor. Neurologic Reflexes are 2+ and symmetric.\R\n8Quasab tactile sensation with monofilament testing throughout boot feet. Capillary refill findings were normal bilaterally. Psychiatric Good eye contact and answers questions appropriately.\R\e1Xrlsfwphgmi mood and affect. Signatures Electronically signed by : Cortney Chandra M.D.; Oct 11 2018 7:23AM MARINE WELDER documented in this encounter Plan of Treatment Not on file documented as of this encounter Visit Diagnoses Not on filedocumented in this encounter Care Teams Senior Php Developer Relationship Specialty Start Date End Date Unknown, Provider . HIRAM PEGUERO [address] PCP - General 03/26/18 04/29/19 Cortney Chandra MD [address] [place] [address] PCP - General Family Medicine 04/30/19 Cortney Chandra MD [address] [place] [address] PCP Family Medicine 04/29/19 04/29/19 [facility] 03/30/23 Primary Eye Care 03/30/23 documented as of this encounter Additional Source Comments PLEASE NOTE: Replies to this message will not be received.[facility] and [facility]
--- OUTSIDE RECORDS SUMMARY | 2024-04-12 14:11 | XMS_ITS | Encounter Summary ---
Author Organization [employer] [facility] Address [address] [place] [address] Care Team Providers Care Auto Polisher Name Role Phone Cortney Chandra MD Primary Care Provider [phone] Reason for Visit * Reason Onset Date Comments Questions 04/07/2024 Encounter Details Date Type Department Care Team (Late st Contact Info) Description 04/07/[address] [facility] [address] [place] [address] Cortney Chandra MD [address] [place] [address] Chief Comp: Questions Social History Tobacco Use Types Packs/Day Years Used Date Smoking Tobacco: Never Smokeless Tobacco: Never Alcohol Use Standard Drinks/Week Comments Never 0 (1 standard drink = 0.6 oz pur e alcohol) [facility] Utilities Answer Date Recorded In the past 12 months has [employer], gas, oil, or water [employer] threatened to shut off services in your [...] any clubs o r organizations such as presybeterian groups, unions, fraternal or athletic groups, or [...] and heating? Not hard at all 08/15/2023 [facility] - Occupational Stress Questionnaire Answer Date [...] encounter Miscellaneous Notes * Telephone Encounter - Cortney Chandra MD - 04/07/2024 11:14 AM CDT Called back- they needed confirmation I will follow while on home care- agreed * Telephone Encounter - Cortney Chandra MD - 04/07/2024 7:41 AM CDT ----- Message from Jodie sent at 04/06/2024 4:25 PM CDT ----- Regarding: FW: Call Back ----- Message ----- From: Caroline Morin Sent: 04/04/2024 4:30 PM CDT To: Cortney Chandra Md Nurse [place] Subject: Call Back Fermin [facility]. Would like a call back at [phone]. Aware you will be in the office on Thursday. Thank you. documented in this encounter Plan of Treatment Not on file documented as of this encounter Visit Diagnoses Not on filedocumented in this encounter Care Teams Auto Polisher Relationship Specialty Start Date End Date Cortney Chandra MD [address] [place] [address] PCP - General Family Medicine 04/30/19 [facility] 03/30/23 Primary Eye Care 03/30/23 documented as of this encounter Additional Source Comments PLEASE NOTE: Replies to this message will not be received.[facility] and [facility]
--- OUTSIDE RECORDS SUMMARY | 2024-04-12 14:11 | XMS_ITS | Encounter Summary ---
Author Organization [employer] Address [address] [place] [address] Care Team Providers Care Poultry Cutter Name Role Phone Cortney Chandra MD Primary Care Provider [phone]- [phone] Reason for Visit * Reason Onset Date Comments Refill Request 02/19/2024 Encounter Details Date Type Department Care Team ([facility] st Contact Info) Description 02/19/2024 Refill [facility] Medicine [address] [place] [address] Cortney Chandra MD [address] [place] [address] Dx: Type 2 diabetes mellitus [...] and heating? Not hard at all 08/15/2023 [facility] - Occupational [...] Primary documented in this encounter Care Teams Poultry Cutter Relationship Specialty Start Date End Date Cortney Chandra MD [address] [place] [address] PCP - General Family Medicine 04/30/19 [facility] 03/30/23 Primary Eye Care 03/30/23 documented as of this encounter Additional Source Comments PLEASE NOTE: Replies to this message will not be received.[facility] and [facility]
--- OUTSIDE RECORDS SUMMARY | 2024-04-12 14:11 | XMS_ITS | Encounter Summary ---
Author Organization [employer] Address [address] [place] [address] Care Team Providers Care Farmworker Grain Name Role Phone Unknown, Provider Primary Care Provider Unavaila ble Cortney Chandra MD Unavailable [phone] Cortney Chandra MD Primary Care Provider [phone] Encounter Details Date Type Department Care Team (Late st Contact Info) Description 08/30/2018 Historical Conversion [facility] Family Medicine [address] [place] [address]. [place] [address] Cortney Chandra MD [address] [place] [address] Social History Tobacco Use Types Packs/Day Years Used Date Smoking Tobacco: Never Assessed Sex and Gender Information Value Date Recorded Sex Assigned at Not on file Gender Identity Female 01/16/2023 2:23 PM CDT Sexual Orientation Not on file documented as of this encounter Last Filed Vital Signs Vital Sign Reading Time Taken Comments Blood Pressure 124/76 08/30/2018 12:00 AM GOURMET COFFEE ATTENDANT Pulse - - Temperature - - Respiratory Rate - - Oxygen Saturation - - Inhaled Oxygen Concentration - - Weight 88.5 kg (195 lb 1.7 oz) 08/30/2018 12:00 AM GOURMET COFFEE ATTENDANT Height 162.5 cm (5' 3.98) 08/30/2018 12:[address] Body Mass Index 33.52 08/30/2018 12:00 AM GOURMET COFFEE ATTENDANT documented in this encounter Plan of Treatment Not on file documented as of this encounter Visit Diagnoses Not on filedocumented in this encounter Care Teams Farmworker Grain Relationship Specialty Start Date End Date Unknown, Provider . HIRAM PEGUERO [address] PCP - General 03/26/18 04/29/19 Cortney Chandra MD [address] [place] [address] PCP - General Family Medicine 04/30/19 Cortney Chandra MD [address] [place] [address] PCP Family Medicine 04/29/19 04/29/19 [facility] 03/30/23 Primary Eye Care 03/30/23 documented as of this encounter Additional Source Comments PLEASE NOTE: Replies to this message will not be received.[facility] and [facility]
--- OUTSIDE RECORDS SUMMARY | 2024-04-12 14:11 | XMS_ITS | Encounter Summary ---
Author Organization [employer] Address [address] [place] [address] Care Team Providers Care Program Project Manager Name Role Phone Unknown, Provider Primary Care Provider Unavaila Cortney Gomez MD Unavailable [phone] Cortney Chandra MD Primary Care Provider [phone] Encounter Details Date Type Department Care Team (Late st Contact Info) Description 03/26/2018 Historical Conversion [facility] Family Medicine [address] [place] [address] [address] Angeles Hartman, CHALINO,PROCESSING TALC AND BORATE SUPERVISOR [address] [place] [address] Social History Tobacco Use Types Packs/Day Years Used Date Smoking Tobacco: Never Assessed Sex and Gender Information Value Date Recorded Sex Assigned at Not on file Gender Identity Female 01/16/2023 2:23 PM CDT Sexual Orientation Not on file documented as of this encounter Progress Notes * Angeles Hartman, CHALINO,PROCESSING TALC AND BORATE SUPERVISOR - 03/26/2018 12:00 AM CDT Assessment 1. [...] or if you almost fall.; Status:Complete; Done: [id number] At your visit today we screened for [...] or seek medical attention immediately.; Status:Complete; Done: [id number] Dystrophic nail, Onychomycosis Fungus Culture (Skin.Hair,Nails ONLY); Status:Active; Requested for:54Qsk2143; culture skin source : left thumb nail SocHx: Never smoked Never Smoked: Since tobacco use can have significant health risks, you are helping yourself and others stay healthy by never smoking.; Status:Complete; Done: [id number] Reason For Visit Discoloration of finger nails [...] Aspirin 81 MG TABS; ONE DAILY; Last Rx:[id number] Ordered 2. Cheratussin AC 100-10 MG/5ML Oral Syrup; TAKE 10 ML EVERY 4 TO 6 HOURS NEEDED; Therapy: 05Oct2012 to (Evaluate:15Lmq8295); Last Rx:04Arx1621 Ordered 3. Cyclobenzaprine HCl - 10 MG Oral Tablet; TAKE 1/2 TO 1 TABLET THREE TIMES DAILY; Therapy: 30Sep2010 to (Evaluate:55Xwy7755) Requested for: 07Jul2016; Last Rx:07Jul2016 Ordered 4. Fluticasone Propionate 50 MCG/ACT Nasal Suspension; INSTILL 1 SPRAY DAILY IN EACH NOSTRIL; Therapy: 17Apr2009 to (Evaluate:14Apr2018) Requested for: 16Oct2017; Last Rx:16Oct2017 Ordered 5. Hydrocortisone 2.5 % External Cream; APPLY SPARINGLY TO AFFECTED AREA(S) TWICE DAILY; Therapy: 20Jul2015 to (Evaluate:59Gxe3010) Requested for: 17Jul2017; Last Rx:17Jul2017 Ordered 6. Loratadine 10 MG Oral Tablet; TAKE 1 TABLET BY MOUTH DAILY NEEDED; Therapy: 70Flm2675 to (Evaluate:12Sep2018) Requested for: 17Sep2017; Last Rx:17Sep2017 Ordered 7. Losartan Potassium 100 MG Oral Tablet; TAKE 1 TABLET BY MOUTH ONCE DAILY; Therapy: 93Anu0023 to (Evaluate:12Jul2018) Requested for: 17Jul2017; Last Rx:17Jul2017 Ordered 8. MetFORMIN HCl ER 500 MG Oral Tablet Extended Release 24 Hour; TAKE 4 TABLETS( 2000MG) BY MOUTH ONCE DAILY; Therapy: 97Npf8206 to (Evaluate:12Jul2018) Requested for: 17Jul2017; Last Rx:17Jul2017 Ordered 9. One-Daily Multi Vitamins Oral Tablet; TAKE 1 TABLET DAILY; Therapy: (Recorded:23Jul2012) to Recorded 10. Simvastatin 20 MG Oral Tablet; TAKE ONE TABLET BY MOUTH DAILY; Therapy: 82Nhx0552 to (Evaluate:12Jul2018) Requested for: 17Jul2017; Last Rx:17Jul2017 Ordered 11. Ventolin HFA 108 (90 Base) MCG/ACT Inhalation Aerosol Solution; INHALE 1 TO 2 PUFFS EVERY 4 TO 6 HOURS NEEDED; Therapy: 06Mar2017 to (Last Rx:06Mar2017) Requested for: 06Mar2017 Ordered 12. Vitamin D3 1000 UNIT Oral Tablet; takes 2 tablets daily; Therapy: (Recorded:94Eze0138) to Recorded Allergies 1. Ultram TABS Vitals [...] other 8 fingers are covered with nail estonian but the 2 thumbs show blackdiscoloration under [...] Electronically signed by : Angeles Hartman RN PROCESSING TALC AND BORATE SUPERVISOR RN,PROCESSING TALC AND BORATE SUPERVISOR; Mar 26 2018 1:29PM SHREDDING SPECIALIST documented in this encounter Plan of Treatment Not on file documented as of this encounter Visit Diagnoses Not on filedocumented in this encounter Care Teams Program Project Manager Relationship Specialty Start Date End Date Unknown, Provider . HIRAM PEGUERO [id number] PCP - General 03/26/18 04/29/19 Cortney Chandra MD [address] [place] [phone] PCP - General Family Medicine 04/30/19 Cortney Chandra MD [address] [place] [phone] PCP Family Medicine 04/29/19 04/29/19 [facility] 03/30/23 Primary Eye Care 03/30/23 documented as of this encounter Additional Source Comments PLEASE NOTE: Replies to this message will not be received.[facility] and [facility]
--- OUTSIDE RECORDS SUMMARY | 2024-04-12 14:11 | XMS_ITS | Clinical Summary ---
Author Organization [facility] Address [address] [place] [address] Care Team Providers Care Valve Repairer Name Role Phone Cortney Espinosa MD Primary Care Provider [phone] Allergies Active Allergy Reactions Criticality Noted Date Comments Tramadol Nausea and / or Vomiting Low 04/29/2019 Medications Medication Sig Dispensed Refills Start Date End Date Status albuterol HFA (AKA: PROVENTIL/VENTOLIN) 90 mcg/actuation inhalation HFA Aerosol Inhaler 1-2 Puffs by inhalation route every 4 hours if needed for shortness of breath. Active F-M-D-zinc-sod selenate-copper (AKA: OCUVITE, PROSIGHT) 5,000-60-30 ewdl-tz-xetv oral Tablet Take 1 Tablet by mouth [...] Active fluticasone propionate (FLONASE) 50 mcg/actuation nasal [place], SuspensionIndication s:Allergic rhinitis due to pollen, unspecified seasonality INSTILL 1 SPRAY DAILY IN EACH NOSTRIL 16 g 5 08/05/2022 Active alendronate (FOSAMAX) 70 mg oral TabletIndications:Po stmenopausal osteoporosis TAKE ONE TABLET BY MOUTH FIRST [...] Active escitalopram oxalate (LEXAPRO) 20 mg oral TabletIndications:Ad justment disorder with depressed mood Take 1 Tablet (20 mg) by mouth in the morning. 90 Tablet 3 08/21/2023 08/20/2024 Active diclofenac sodium (VOLTAREN) 75 mg oral Tablet, Delayed Release (E.C.)Indications:Lalitha mbar back pain TAKE ONE TABLET BY MOUTH EVERY MORNING 90 Tablet 1 11/12/2023 Active PROCTO-MED HC 2.5 % topical cream with perineal applicatorIndication s:Rash APPLY TOPICALLY TO AFFECTED AREA(S) TWO TIMES DAILY 28 g 2 01/05/2024 Active sulfamethoxazole-tri methoprim (BACTRIM) 400-80 mg oral TabletIndications:Re current UTI TAKE ONE TABLET BY MOUTH EVERY DAY 90 Tablet 1 01/12/2024 Active metFORMIN XR (GLUCOPHAGE XR) 500 mg oral Tablet Sustained Release 24HRIndications:Type 2 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 360 Tablet 2 02/19/2024 Active losartan (COZAAR) 100 mg oral TabletIndications:Es sential hypertension TAKE ONE TABLET BY MOUTH EVERY DAY 90 Tablet 03/01/2024 Active simvastatin (ZOCOR) 20 mg oral TabletIndications:Ot her hyperlipidemia Take 1 Tablet (20 mg) by mouth in the morning. 90 Tablet 3 03/09/2024 Active loratadine (CLARITIN) 10 mg oral TabletIndications:No n-seasonal allergic rhinitis due to pollen Take 1 Tablet (10 mg) by mouth in the morning. 90 Tablet 3 03/09/2024 Active Active Problems Problem Noted Date Diagnosed Date Vitamin D deficiency Solar elastosis Infection due to yeast Controlled diabetes mellitus Combined systolic and diastolic hypertension Allergic rhinitis due to pollen Encounters Date Type Department Care Team Description 04/07/2024 Telephone [facility] [address] [place] [address] Cortney Espinosa MD Chief Comp: Questions 04/05/2024 Telephone [facility] [place] [address] [place] [address] Ingrid George RN Chief Comp: Questions 03/08/2024 Patient Message [facility] [address] [place] [address] Cortney Espinosa MD Dx: Other hyperlipidemia 03/01/2024 Refill [place] [address] [place] [address] Cortney Espinosa MD Dx: Essential hypertension (Primary Dx) 02/19/2024 Refill [facility] [place] [address] [place] [address] Cortney Espinosa MD Dx: Type 2 diabetes mellitus with stage 1 chronic kidney disease, without long-term current use of insulin (HCC) (Primary Dx) 01/12/2024 Refill [facility] [place] [address] [place] [address] Cortney Espinosa MD Dx: Type 2 diabetes mellitus with stage 1 chronic kidney disease, without long-term current use of insulin (HCC) from Last 3 Months Immunizations Name Administration [...] Mother Yennifer No Known Problems Paternal Grandfather Iver No Known Problems Paternal Grandmother Yamilet Diabetes Sister Anyi Heart Disease Sister Anyi No Known Problems Son Tre Relation Name Status Comments Daughter October Alive Father Jah (Age 54) Maternal Grandfather Adam (Age 60's) Maternal Grandmother Shelbi Mother Yennifer (Age 74) Paternal Grandfather Iver Paternal Grandmother Yamilet Sister Anyi (Age 72) Son Tre Alive Social History Tobacco Use Types Packs/Day Years Used Date Smoking Tobacco: Never Smokeless Tobacco: Never Tobacco Cessation:Counseling Given: No Alcohol Use Standard Drinks/Week Comments Never 0 (1 standard drink = 0.6 oz pur e alcohol) [facility] Utilities Answer Date Recorded In the [...] any clubs o r organizations such as synagogue groups, unions, fraternal or athletic groups, or [...] at all 08/15/2023 [facility] [place] of Occupat ional Health - Occupational Stress [...] place to sleep or slept in a assisted (including now)? No 08/15/2023 Depression (PHQ-9) Answer [...] Comments Blood Pressure 139/81 08/21/2023 9:47 AM TRAFFIC MAINTENANCE OFFICER Pulse 77 08/21/2023 9:47 AM TRAFFIC MAINTENANCE OFFICER Temperature 36.9 ??C (98.5 ??F) 08/21/2023 9:47 AM CS T Respiratory Rate 18 08/21/2023 9:47 AM TRAFFIC MAINTENANCE OFFICER Oxygen Saturation 96% 08/21/2023 9:47 AM TRAFFIC MAINTENANCE OFFICER Inhaled Oxygen Concentration - - Weight 73 kg (161 lb) 08/21/2023 9:47 AM TRAFFIC MAINTENANCE OFFICER Height 161.1 cm (5' 3.43) 03/30/2023 10:53 AM C DT Body Mass Index 28.14 03/30/2023 10:53 AM CDT Plan of Treatment Health Maintenance Due Date Last Done Comments Varicella Zoster Sequential (2 of 3) 07/23/2009 05/28/2009 Respiratory Syncytial Virus (RSV) Vaccine (1 - 1-dose 75+ series) 01/25/2023 COVID-19 Vaccine ( season) 2024 04/27/2023, 04/03/2022, 11/01/2021, Additional history [...] GLYCOSYLATED HEMOGLOBIN, A1C Routine 09/10/2023 9:59 AM TRAFFIC MAINTENANCE OFFICER Type 2 diabetes mellitus with stage 1 [...] EYE EXAM - EXTERNAL (12/25/2023) RETINOPATHY Negative [facility] Cortney Espinosa MD [facility] [address] [address], * GLYCOSYLATED HEMOGLOBIN, A1C (09/10/2023 9:59 AM TRAFFIC MAINTENANCE OFFICER) Hemoglobin A1c 6.3 <=6.4 % 09/10/2023 10:27 AM TRAFFIC MAINTENANCE OFFICER [facility] Estimated Average Glucose 134 mg/dL 09/10/2023 10:27 AM TRAFFIC MAINTENANCE OFFICER [facility] Blood VENOUS BLOOD / Unknown Venipuncture / Unknown 09/10/2023 9:59 AM TRAFFIC MAINTENANCE OFFICER 09/10/2023 9:59 AM TRAFFIC MAINTENANCE OFFICER Cortney Espinosa MD LAB CHEMISTRY ORDE [facility] [address] [address], [place] [phone] * MICROALBUMIN, RANDOM, URINE (03/30/2023 11:28 AM CDT) Microalbumin, Urine <12.0 mg/L 03/30/2023 1:46 PM CDT [facility] Creatinine, Urine 71.1 mg/dL 03/30/2023 1:46 PM CDT [facility] Microalbumin/Cr eatinine Ratio 03/30/2023 1:46 PM CDT [facility] Comment: Unable to calculate ratio due to decreased Microalbumin. Normal: <30 Microalbuminuria: 30-299 Clinical Microalbuminuria: >300 Urine SPOT URINE SPECIMEN / Unknown Non-blood Collection / Unknown 03/30/2023 11:28 AM CDT 03/30/2023 11:28 AM CDT Cortney Espinosa MD LAB URINE ORDERABL ES [facility] [address] [place] [address], [place] [phone] * (ABNORMAL) LIPID PANEL (03/30/2023 11:28 AM CDT) Cholesterol 138 0 - 200 mg/dL 03/30/2023 1:39 PM T [facility] Triglycerides 86 0 - 150 mg/dL 03/30/2023 1:39 PM T [facility] Cholesterol, LDL (Calculated) 69 <=100 mg/dL 03/30/2023 1:39 PM T [facility] Cholesterol, HDL 52(L) 60 - 150 mg/dL 03/30/2023 1:39 PM T [facility] Cholesterol, vLDL 17 0 - 130 mg/dL 03/30/2023 1:39 PM T [facility] Fasting Status Yes 03/30/2023 1:39 PM T [facility] Blood VENOUS BLOOD / Unknown Venipuncture / Unknown 03/30/2023 11:28 AM CDT 03/30/2023 11:28 AM CDT Cortney Espinosa MD LAB CHEMISTRY ORDPete GALAN [facility] [address] [place] [address], * DEXA HIP AND SPINE (02/26/2021 10:38 [...] PM CDT) 03/01/2020 12:0 1 PM CDT [facility] GI - 03/01/2020 1:05 PM CDT Patient Name: SUMAYA GALVAN Procedure Date: 03/01/2020 Date of : 1950 Attending MD: BILLY ESPINOSA MD Referring MD CORTNEY ESPINOSA Additional Staff Jade ??Min, Differential Tester; Malini ??LUCIA Quiros Patient Profile - ??Refer [...] without bleeding Diagnosis Code(s)CPT(R) - 2019 copyright [employer]. All Rights Reserved. Diagnosis Code(s)The CPT codes, CCI edits and ICD codes generated are intended as suggestions and were generated based on input data. ??These codes are preliminary and upon pmo project manager review may be revised to meet current compliance and payer requirements. ??The provider is responsible for the final determination of appropriate codes, and modifiers. Scope Withdrawal Time 00:12:06 Signature Name: Billy Espinosa Signature Statement:This document has been electronically signed. Note Initiated On:03/01/2020 Signature Date:03/01/2020 1:05 PM Cortney Espinosa MD GI PROCEDURES [facility] [address] [place] [address], from Last 3 Months or Most Recently Relevant to Health Maintenance Advance Directives Documents on File Type Date Recorded Patient Inspecting And Testing Lead Hand Expl anation Physician Orders for Life-Sustaining Treatment (POLST) 05/18/2023 2:28 PM POLST POLST-S 04/03/2023 2:26 PM Advanced Directives 06/06/2020 1:42 PM [facility] Health Care Directive-S 02/17/2005 1:42 PM Care Teams Valve Repairer Relationship Specialty Start Date End Date Cortney Espinosa MD [address] [place] [phone] PCP - General Family Medicine 04/30/19 [facility] 03/30/23 Primary Eye Care 03/30/23 Additional Source Comments PLEASE NOTE: Replies to this message will not be received.[facility]
--- OUTSIDE RECORDS SUMMARY | 2024-04-12 14:11 | XMS_ITS | Encounter Summary ---
Author Organization [employer] [facility] Address [address] [place] [address] Care Team Providers Care Supervisor Shipping Room Name Role Phone Unknown, Provider Primary Care Provider Unavaila Cortnye Gomez MD Unavailable [phone] Cortney Chandra MD Primary Care Provider [phone] Encounter Details Date Type Department Care Team (Late st Contact Info) Description 08/13/2018 Historical Conversion [facility] Family Medicine [address] [facility] [place] [address] Rosemary Aquino APRN,CLINICAL ADMINISTRATOR [address] [place] [phone] Social History Tobacco Use Types Packs/Day Years Used Date Smoking Tobacco: Never Assessed Sex and Gender Information Value Date Recorded Sex Assigned at Not on file Gender Identity Female 01/16/2023 2:23 PM CDT Sexual Orientation Not on file documented as of this encounter Progress Notes * Rosemary Aquino, CHALINO,CLINICAL ADMINISTRATOR - 08/13/2018 12:00 AM CST Assessment 1. [...] - Requires Verification,Retrospective By Protocol Authorization; Done: [id number] 02:29PM Reason For Visit Patient in with [...] Aspirin 81 MG TABS; ONE DAILY; Last Rx:[id number] Ordered 2. Cyclobenzaprine HCl - 10 MG Oral Tablet; TAKE 1/2 TO 1 TABLET THREE TIMES DAILY; Therapy: 30Sep2010 to (Evaluate:65Ykn5377) Requested for: 07Jul2016; Last Rx:07Jul2016 Ordered 3. Fluticasone Propionate 50 MCG/ACT Nasal Suspension; INSTILL 1 SPRAY DAILY IN EACH NOSTRIL; Therapy: 17Apr2009 to (Evaluate:14Apr2018) Requested for: 16Oct2017; Last Rx:16Oct2017 Ordered 4. Hydrocortisone 2.5 % External Cream; APPLY SPARINGLY TO AFFECTED AREA(S) TWICE DAILY; Therapy: 20Jul2015 to (Evaluate:07Ulp6612) Requested for: 17Jul2017; Last Rx:17Jul2017 Ordered 5. Loratadine 10 MG Oral Tablet; TAKE 1 TABLET BY MOUTH DAILY NEEDED; Therapy: 27Pmb4329 to (Evaluate:12Sep2018) Requested for: 17Sep2017; Last Rx:17Sep2017 Ordered 6. Losartan Potassium 100 MG Oral Tablet; TAKE 1 TABLET BY MOUTH ONCE DAILY; Therapy: 33Jyb8679 to (Evaluate:10Jul2019) Requested for: 15Jul2018; Last Rx:15Jul2018 Ordered 7. metFORMIN HCl ER 500 MG Oral Tablet Extended Release 24 Hour; TAKE 4 TABLETS( 2000MG) BY MOUTH ONCE DAILY; Therapy: 23Lit5277 to (Evaluate:18Jul2019) Requested for: 23Jul2018; Last Rx:23Jul2018 Ordered 8. One-Daily Multi Vitamins Oral Tablet; TAKE 1 TABLET DAILY; Therapy: (Recorded:23Jul2012) to Recorded 9. Pyridium 100 MG Oral Tablet; TAKE 1 TABLET 3 TIMES DAILY AFTER MEALS NEEDED; Therapy: 46Yme4671 to (Last Rx:03Kqu8593) Requested for: 14Jun2018 Ordered 10. Simvastatin 20 MG Oral Tablet; TAKE ONE TABLET BY MOUTH DAILY; Therapy: 49Wvo3600 to (Evaluate:10Jul2019) Requested for: 15Jul2018; Last Rx:15Jul2018 Ordered 11. Ventolin HFA 108 (90 Base) MCG/ACT Inhalation Aerosol Solution; INHALE 1 TO 2 PUFFS EVERY 4 TO 6 HOURS NEEDED; Therapy: 06Mar2017 to (Last Rx:[id number]) Requested for: 62Qdv2920 Ordered 12. Vitamin D3 1000 UNIT Oral Tablet; takes 2 tablets daily; Therapy: (Recorded:54Efl2992) to Recorded Allergies 1. Ultram TABS Vitals [...] Urinalysis-Color YEL Urinalysis- Appearance CLOUD A Urinalysis-Sp Leslie 1.010 1.005-1.030 Urinalysis-pH 5.5 5.0-7.5 Urinalysis-Protein NEG NEGATIVE Urinalysis- Glucose NEG NEGATIVE Urinalysis-Ketone TRACE A NEGATIVE Urinalysis- Bilirub NEG NEGATIVE Urinalysis- Blood 3+ A NEGATIVE Urinalysis-Urobil 0.2 0.2-1.0 Urinalysis-Nitrite NEG NEGATIVE Urinalysis-Leuk 3+ A NEGATIVE Urinalysis-WBC TNTC A 0-4 Urinalysis-RBC TNTC A 0-4 Urinalysis-Epith FEW Urinalysis-Hyal Cast NEG Urinalysis- Bacteria MOD A UrinalysisA Urinalysis-Color YEL Urinalysis- Appearance CLOUD A Urinalysis-Sp Leslie 1.010 1.005-1.030 Urinalysis-pH 5.5 5.0-7.5 Urinalysis-Protein NEG NEGATIVE Urinalysis- Glucose NEG NEGATIVE Urinalysis-Ketone TRACE A NEGATIVE Urinalysis- Bilirub NEG NEGATIVE Urinalysis- Blood 3+ A NEGATIVE Urinalysis-Urobil 0.2 0.2-1.0 Urinalysis-Nitrite NEG NEGATIVE Urinalysis-Leuk 3+ A NEGATIVE Urinalysis-WBC TNTC A 0-4 Urinalysis-RBC TNTC A 0-4 Urinalysis-Epith FEW Urinalysis-Hyal Cast NEG Urinalysis- Bacteria MOD A UrinalysisA Signatures Electronically signed by : Rosemary Aquino RN CLINICAL ADMINISTRATOR RN,CLINICAL ADMINISTRATOR; Aug 13 2018 3:19PM ROLLER SKATE ASSEMBLER documented in this encounter Plan of Treatment Not on file documented as of this encounter Visit Diagnoses Not on filedocumented in this encounter Care Teams Supervisor Shipping Room Relationship Specialty Start Date End Date Unknown, Provider . HIRAM PEGUERO [address] PCP - General 03/26/18 04/29/19 Cortney Chandra MD [address] [place] [phone] PCP - General Family Medicine 04/30/19 Cortney Chandra MD [address] [place] [address] PCP Family Medicine 04/29/19 04/29/19 [facility] 03/30/23 Primary Eye Care 03/30/23 documented as of this encounter Additional Source Comments PLEASE NOTE: Replies to this message will not be received.[facility]
--- OUTSIDE RECORDS SUMMARY | 2024-04-12 14:11 | XMS_ITS | Referral Summary ---
Author Organization [employer] Address [address] [place] [address] Care Team Providers Care Religious Studies Professor Name Role Phone Cortney Espinosa MD Primary Care Provider [phone]- [phone] Encounters Date Type Department Care Team Description 04/07/2024 Telephone [place] [phone] [place] [address] Cortney Espinosa MD Chief Comp: Questions 04/05/2024 Telephone [place] [phone] [place] [address] Ingrid George, RN Chief Comp: Questions 03/08/2024 Patient Message [place] [address] [phone] [place] [address] Cortney Espinosa MD Dx: Other hyperlipidemia 03/01/2024 Refill [place] [address] [place] [address] Cortney Espinosa MD Dx: Essential hypertension (Primary Dx) 02/19/2024 [place] [address] [place] [address] Cortney Espinosa MD Dx: Type 2 diabetes mellitus with stage 1 chronic kidney disease, without long-term current use of insulin (HCC) (Primary Dx) 01/12/2024 Refill [facility] [address] [place] [address] Cortney Espinosa MD Dx: Type 2 diabetes mellitus with stage 1 chronic kidney disease, without long-term current use of insulin (HCC) from Last 3 Months Allergies Active Allergy Reactions Criticality Noted Date Comments Tramadol Nausea and / or Vomiting Low 04/29/2019 Medications Medication Sig Dispensed Refills Start Date End Date Status albuterol HFA (AKA: PROVENTIL/VENTOLIN) 90 mcg/actuation inhalation HFA Aerosol Inhaler 1-2 Puffs by inhalation route every 4 hours if needed for shortness of breath. Active N-U-R-zinc-sod selenate-copper (AKA: OCUVITE, PROSIGHT) 5,000-60-30 lkuu-rv-dslh oral Tablet Take 1 Tablet by mouth [...] Active fluticasone propionate (FLONASE) 50 mcg/actuation nasal [place], SuspensionIndication s:Allergic rhinitis due to pollen, unspecified [...] 75 mg oral Tablet, Delayed Release (E.C.)Indications:Lalitha mbjena back pain TAKE ONE TABLET BY MOUTH [...] drink = 0.6 oz pur e alcohol) [facility] Utilities Answer Date Recorded In the past 12 months has e [employer], [employer], oil, or water [employer] threatened to shut off services in your [...] How often do you attend chur or confucianism services? More than 4 times per year 08/15/2023 Do you belong to any clubs o r organizations such as confucianist groups, unions, fraternal or athletic groups, or [...] and heating? Not hard at all 08/15/2023 [facility] of Occupat ional Health - Occupational Stress [...] place to sleep or slept in a skilled nursing (including now)? No 08/15/2023 Depression (PHQ-9) Answer [...] Comments Blood Pressure 139/81 08/21/2023 9:47 AM WOOD GRINDER Pulse 77 08/21/2023 9:47 AM WOOD GRINDER Temperature 36.9 ??C (98.5 ??F) 08/21/2023 9:47 AM CS T Respiratory Rate 18 08/21/2023 9:47 AM WOOD GRINDER Oxygen Saturation 96% 08/21/2023 9:47 AM WOOD GRINDER Inhaled Oxygen Concentration - - Weight 73 kg (161 lb) 08/21/2023 9:47 AM WOOD GRINDER Height 161.1 cm (5' 3.43) 03/30/2023 [...] GLYCOSYLATED HEMOGLOBIN, A1C Routine 09/10/2023 9:59 AM WOOD GRINDER Type 2 diabetes mellitus with stage [...] EYE EXAM - EXTERNAL (12/25/2023) RETINOPATHY Negative [facility] Cortney Espinosa MD NURSING COMMUNICAT ION Performing Organization Address City/[facility]/ZIP Co de Phone Number [address] [address], [place] [phone] * GLYCOSYLATED HEMOGLOBIN, A1C (09/10/2023 9:59 AM WOOD GRINDER) Hemoglobin A1c 6.3 <=6.4 % 09/10/2023 10:27 AM WOOD GRINDER [facility] Estimated Average Glucose 134 mg/dL 09/10/2023 10:27 AM WOOD GRINDER [facility] Blood VENOUS BLOOD / Unknown Venipuncture / Unknown 09/10/2023 9:59 AM WOOD GRINDER 09/10/2023 9:59 AM WOOD GRINDER Cortney Espinosa MD LAB CHEMISTRY ORDE RABCHRISTEL Performing Organization Address City/[facility]/ZIP Co de Phone Number [address] [address], [place] [phone] * MICROALBUMIN, RANDOM, URINE (03/30/2023 11:28 AM CDT) Microalbumin, Urine <12.0 mg/L 03/30/2023 1:46 PM CDT [facility] Creatinine, Urine 71.1 mg/dL 03/30/2023 1:46 PM T [facility] Microalbumin/Cr eatinine Ratio 03/30/2023 1:46 PM CDT [facility] Comment: Unable to calculate ratio due to decreased Microalbumin. Normal: <30 Microalbuminuria: 30-299 Clinical Microalbuminuria: >300 Urine SPOT URINE SPECIMEN / Unknown Non-blood Collection / Unknown 03/30/2023 11:28 AM CDT 03/30/2023 11:28 AM CDT Cortney Espinosa MD LAB URINE ORDERABL ES Performing Organization Address City/[facility]/ZIP Co de Phone Number [facility] [address] [place] [address], [place] [phone] * (ABNORMAL) LIPID PANEL (03/30/2023 11:28 AM CDT) Cholesterol 138 0 - 200 mg/dL 03/30/2023 1:39 PM T [facility] Triglycerides 86 0 - 150 mg/dL 03/30/2023 1:39 PM T [facility] Cholesterol, LDL (Calculated) 69 <=100 mg/dL 03/30/2023 1:39 PM [facility] Cholesterol, HDL 52(L) 60 - 150 mg/dL 03/30/2023 1:39 PM T [facility] Cholesterol, vLDL 17 0 - 130 mg/dL 03/30/2023 1:39 PM T [facility] Fasting Status Yes 03/30/2023 1:39 PM T [facility] Blood VENOUS BLOOD / Unknown Venipuncture / Unknown 03/30/2023 11:28 AM CDT 03/30/2023 11:28 AM CDT Cortney Espinosa MD LAB CHEMISTRY ORDE RABLES [facility] [address] [place] [address], * DEXA HIP AND SPINE (02/26/2021 10:38 [...] CDT) 03/01/2020 12:0 1 PM CDT Narrative [facility] - 03/01/2020 1:05 PM CDT Patient Name: SUMAYA GALVAN Procedure Date: 03/01/2020 Date of : 1950 Attending MD: BILLY ESPINOSA MD Referring MD CORTNEY ESPINOSA Additional Staff Jade ??Min, [employer]; Malini ??LUCIA Quiros Patient Profile - ??Refer [...] without bleeding Diagnosis Code(s)CPT(R) - 2019 copyright [employer]. All Rights Reserved. Diagnosis Code(s)The CPT codes, CCI edits and ICD codes generated are intended as suggestions and were generated based on input data. ??These codes are preliminary and upon oyster culturist review may be revised to meet current compliance and payer requirements. ??The provider is responsible for the final determination of appropriate codes, and modifiers. Scope Withdrawal Time 00:12:06 Signature Name: Billy Espinosa Signature Statement:This document has been electronically signed. Note Initiated On:03/01/2020 Signature Date:03/01/2020 1:05 PM Cortney Espinosa MD GI PROCEDURES [facility] [address] [place] [address], from Last 3 Months or Most Recently Relevant to Health Maintenance Advance Directives Documents on File Type Date Recorded Patient Outreach Consultant Expl anation Physician Orders for Life-Sustaining Treatment (POLST) 05/18/2023 2:28 PM POLST POLST-S 04/03/2023 2:26 PM Advanced Directives 06/06/2020 1:42 PM CRS [facility] Directive-S 02/17/2005 1:42 PM Care Teams Religious Studies Professor Relationship Specialty Start Date End Date Cortney Espinosa MD [address] [place] [address] PCP - General Family Medicine 04/30/19 [facility] 03/30/23 Primary Eye Care 03/30/23 Additional Source Comments PLEASE NOTE: Replies to this message will not be received.[facility] and [facility]
--- OUTSIDE RECORDS SUMMARY | 2024-04-12 14:11 | XMS_ITS | Encounter Summary ---
Author Organization [employer] [facility] Address [address] [place] [address] Care Team Providers Care Retention Representative Name Role Phone Unknown, Provider Primary Care Provider UnavailCortney Dye MD Unavailable [phone] Cortney Chandra MD Primary Care Provider [phone] Encounter Details Date Type Department Care Team (Late st Contact Info) Description 09/03/2017 Historical Conversion [facility] [address] [facility] [place] [address] Rosemary Aquino APRN,REIMBURSEMENT SPECIALIST [address] [place] [phone] Social History Tobacco Use Types Packs/Day Years Used Date Smoking Tobacco: Never Assessed Sex and Gender Information Value Date Recorded Sex Assigned at Not on file Gender Identity Female 01/16/2023 2:23 PM CDT Sexual Orientation Not on file documented as of this encounter Progress Notes * Rosemary Aquino, CHALINO,REIMBURSEMENT SPECIALIST - 09/03/2017 12:00 AM CST Assessment 1. [...] TO 6 HOURS NEEDED; Therapy: 05Oct2012 to (Evaluate:81Bms2541); Last Rx:08Aug2016 Ordered 3. Cyclobenzaprine HCl - 10 MG Oral Tablet; TAKE 1/2 TO 1 TABLET THREE TIMES DAILY; Therapy: 30Sep2010 to (Evaluate:38Lji7466) Requested for: 07Jul2016; Last Rx:07Jul2016 Ordered 4. Fluticasone Propionate 50 MCG/ACT Nasal Suspension; INSTILL 1 SPRAY DAILY IN EACH NOSTRIL; Therapy: 17Apr2009 to (Evaluate:15Dec2016) Requested for: 62Zem8845; Last Rx:46Vcq8439 Ordered 5. Hydrocortisone 2.5 % External Cream; APPLY SPARINGLY TO AFFECTED AREA(S) TWICE DAILY; Therapy: 20Jul2015 to (Evaluate:85Ntr8129) Requested for: 17Jul2017; Last Rx:17Jul2017 Ordered 6. Loratadine 10 MG Oral Tablet; TAKE 1 TABLET BY MOUTH DAILY NEEDED; Therapy: 40Yhq4535 to (Evaluate:12Sep2017) Requested for: 17Sep2016; Last Rx:17Sep2016 Ordered 7. Losartan Potassium 100 MG Oral Tablet; TAKE 1 TABLET BY MOUTH ONCE DAILY; Therapy: 71Jyq7790 to (Evaluate:12Jul2018) Requested for: 17Jul2017; Last Rx:17Jul2017 Ordered 8. MetFORMIN HCl ER 500 MG Oral Tablet Extended Release 24 Hour; TAKE 4 TABLETS( 2000MG) BY MOUTH ONCE DAILY; Therapy: 28Bob2424 to (Evaluate:12Jul2018) Requested for: 17Jul2017; Last Rx:17Jul2017 Ordered 9. One-Daily Multi Vitamins Oral Tablet; TAKE 1 TABLET DAILY; Therapy: (Recorded:23Jul2012) to Recorded 10. Simvastatin 20 MG Oral Tablet; TAKE ONE TABLET BY MOUTH DAILY; Therapy: 38Fdc1612 to (Evaluate:12Jul2018) Requested for: 17Jul2017; Last Rx:17Jul2017 [...] Electronically signed by : Rosemary Aquino RN REIMBURSEMENT SPECIALIST RN,REIMBURSEMENT SPECIALIST; Sep 03 2017 5:41PM PIECE DYER documented in this encounter Plan of Treatment Not on file documented as of this encounter Visit Diagnoses Not on filedocumented in this encounter Care Teams Retention Representative Relationship Specialty Start Date End Date Unknown, Provider . HIRAM PEGUERO [address] PCP - General 03/26/18 04/29/19 Cortney Chandra MD [address] [place] [phone] PCP - General Family Medicine 04/30/19 Cortney Chandra MD [address] [place] [address] PCP Family Medicine 04/29/19 04/29/19 [facility] 03/30/23 Primary Eye Care 03/30/23 documented as of this encounter Additional Source Comments PLEASE NOTE: Replies to this message will not be received.[facility] and [facility]
--- OUTSIDE RECORDS SUMMARY | 2024-04-12 14:11 | XMS_ITS | Encounter Summary ---
Author Organization [employer] Address [address] [place] [address] Care Team Providers Care Rnfa Name Role Phone Unknown, Provider Primary Care Provider Unavaila ble Cortney Chandra MD Unavailable [phone] Cortney Chandra MD Primary Care Provider [phone]- [phone] Encounter Details Date Type Department Care Team (Late st Contact Info) Description 09/25/2017 Historical Conversion [facility] [address] [place] [address]. [place] [address] Cortney Chandra MD [address] [place] [address] Social History Tobacco Use Types [...] For Visit Pt. [facility] for [facility]. [facility] History of Present Illness Sumaya is here for annual HCM exam along with Medicare wellness. She has a hx of type 2 DM, hyperlipidemia and HTN. She is doing well. She notes some join and back discomfort off and on but does notwant to do anything about it. She is still working casual as an [employer] and still enjoys this. Her asthma and [...] Aspirin 81 MG TABS; ONE DAILY; Last Rx:[id number] Ordered 2. Cheratussin AC 100-10 MG/5ML Oral Syrup; TAKE 10 ML EVERY 4 TO 6 HOURS NEEDED; Therapy: 05Oct2012 to (Evaluate:42Akx0181); Last Rx:74Loi8013 Ordered 3. Cyclobenzaprine HCl - 10 MG Oral Tablet; TAKE 1/2 TO 1 TABLET THREE TIMES DAILY; Therapy: 30Sep2010 to (Evaluate:61Tqm8549) Requested for: 07Jul2016; Last Rx:07Jul2016 Ordered 4. Fluticasone Propionate 50 MCG/ACT Nasal Suspension; INSTILL 1 SPRAY DAILY IN EACH NOSTRIL; Therapy: 17Apr2009 to (Evaluate:15Dec2016) Requested for: 46Mjj5842; Last Rx:08Orf8987 Ordered 5. Hydrocortisone 2.5 % External Cream; APPLY SPARINGLY TO AFFECTED AREA(S) TWICE DAILY; Therapy: 20Jul2015 to (Evaluate:77Yxz1333) Requested for: 17Jul2017; Last Rx:17Jul2017 Ordered 6. Loratadine 10 MG Oral Tablet; TAKE 1 TABLET BY MOUTH DAILY NEEDED; Therapy: 99Cib6085 to (Evaluate:12Sep2018) Requested for: 17Sep2017; Last Rx:17Sep2017 Ordered 7. Losartan Potassium 100 MG Oral Tablet; TAKE 1 TABLET BY MOUTH ONCE DAILY; Therapy: 06Hcx7930 to (Evaluate:12Jul2018) Requested for: 17Jul2017; Last Rx:17Jul2017 Ordered 8. MetFORMIN HCl ER 500 MG Oral Tablet Extended Release 24 Hour; TAKE 4 TABLETS( 2000MG) BY MOUTH ONCE DAILY; Therapy: 29Htg8320 to (Evaluate:12Jul2018) Requested for: 17Jul2017; Last Rx:17Jul2017 Ordered 9. One-Daily Multi Vitamins Oral Tablet; TAKE 1 TABLET DAILY; Therapy: (Recorded:23Jul2012) to Recorded 10. Simvastatin 20 MG Oral Tablet; TAKE ONE TABLET BY MOUTH DAILY; Therapy: 10Yks5086 to (Evaluate:12Jul2018) Requested for: 17Jul2017; Last Rx:17Jul2017 Ordered 11. Ventolin HFA 108 (90 Base) MCG/ACT Inhalation Aerosol Solution; INHALE 1 TO 2 PUFFS EVERY 4 TO 6 HOURS NEEDED; Therapy: 29Kfz0191 to (Last Rx:12Tda3825) Requested for: 90Lyk7065 Ordered 12. Vitamin D3 1000 UNIT Oral Tablet; takes 2 tablets daily; Therapy: (Recorded:29Hmt5157) to Recorded Allergies 1. Ultram TABS Vitals [...] Cortney Chandra M.D.; Oct 05 2017 8:00AM ADULT MINISTRIES DIRECTOR documented in this encounter Plan of Treatment Not on file documented as of this encounter Visit Diagnoses Not on filedocumented in this encounter Care Teams Rnfa Relationship Specialty Start Date End Date Unknown, Provider . HIRAM PEGUERO [address] PCP - General 03/26/18 04/29/19 Cortney Chandra MD [address] [place] [phone] PCP - General Family Medicine 04/30/19 Cortney Chandra MD [address] [place] [address] PCP Family Medicine 04/29/19 04/29/19 [facility] 03/30/23 Primary Eye Care 03/30/23 documented as of this encounter Additional Source Comments PLEASE NOTE: Replies to this message will not be received.[facility] and [facility]
--- OUTSIDE RECORDS SUMMARY | 2024-04-12 14:11 | XMS_ITS | Encounter Summary ---
Author Organization [employer] Address [address] [place] [address] Care Team Providers Care Zipper Trimmer Name Role Phone Cortney Chandra MD Primary Care Provider [phone]- [phone] Reason for Visit * Reason Comments Refill Request Encounter Details Date Type Department Care Team (Late st Contact Info) Description 03/01/2024 Refill [facility] [address] [place], [place] [phone] Cortney Chandra MD [address] [place] [address] Dx: Essential hypertension (Primary Dx) Social History Tobacco Use Types Packs/Day Years Used Date Smoking Tobacco: Never Smokeless Tobacco: Never Alcohol Use Standard Drinks/Week Comments Never 0 (1 standard drink = 0.6 oz pur e alcohol) [facility] Utilities Answer Date Recorded In the past [address] [facility] [employer], gas, oil, or water [employer] threatened to shut off services in your [...] any clubs o r organizations such as sikh groups, unions, fraternal or athletic groups, or [...] and heating? Not hard at all 08/15/2023 [facility] of Occupat ional Health - Occupational Stress [...] hypertension documented in this encounter Care Teams Zipper Trimmer Relationship Specialty Start Date End Date Cortney Chandra MD [address] [place] [address] PCP - General Family Medicine 04/30/19 [facility] 03/30/23 Primary Eye Care 03/30/23 documented as of this encounter Additional Source Comments PLEASE NOTE: Replies to this message will not be received.[facility] and [facility]
--- OUTSIDE RECORDS SUMMARY | 2024-04-12 14:11 | XMS_ITS | Encounter Summary ---
Author Organization [employer] Address [address] [place] [address] Care Team Providers Care Cyber Forensics Analyst Name Role Phone Cortney Chandra MD Primary Care Provider [phone] Reason for Visit * Reason Onset Date Comments Questions 04/05/2024 Encounter Details Date Type Department Care Team (Late st Contact Info) Description 04/05/2024 Telephone [place] [id number] [facility] [place], [place] [phone] Ingrid George RN Chief Comp: Questions Social History Tobacco Use Types Packs/Day Years Used Date Smoking Tobacco: Never Smokeless Tobacco: Never Alcohol Use Standard Drinks/Week Comments Never 0 (1 standard drink = 0.6 oz pur e alcohol) [facility] Utilities Answer Date Recorded In the past [...] often do you attend chur ch or yazdanism services? More than 4 times per year [...] heating? Not hard at all 08/15/2023 [facility] of Occupat ional Health - Occupational [...] return call. * Telephone Encounter - Ingrid Geroge RN - 04/05/2024 8:38 AM CDT ----- Message from [employer] sent at 04/04/2024 4:28 PM CDT ----- Regarding: Call Back Fermin [facility]. Would like a call back at . Aware you will be in the office on Thursday. Thank you. documented in this encounter Plan of Treatment Not on file documented as of this encounter Visit Diagnoses Not on filedocumented in this encounter Care Teams Cyber Forensics Analyst Relationship Specialty Start Date End Date Cortney Chandra MD [address] [place] [address] PCP - General Family Medicine 04/30/19 [facility] 03/30/23 Primary Eye Care 03/30/23 documented as of this encounter Additional Source Comments PLEASE NOTE: Replies to this message will not be received.[facility] and [facility]
--- OUTSIDE RECORDS SUMMARY | 2024-04-12 14:11 | XMS_ITS | Encounter Summary ---
Author Organization [employer] Address [address] [place] [address] Care Team Providers Care Wage And Salary Administrator Name Role Phone Cortney Chandra MD Primary Care Provider [phone]- [phone] Encounter Details Date Type Department Care Team (Latest Contact Info) Description 03/08/2024 Patient Message [facility] [address] [place], [place] [phone] Cortney Chandra MD [address] [place] [phone] Dx: Other hyperlipidemia Social History Tobacco Use Types Packs/Day Years Used Date Smoking Tobacco: Never Smokeless Tobacco: Never Alcohol Use Standard Drinks/Week Comments Never 0 (1 standard drink = 0.6 oz pur e alcohol) [facility] Utilities Answer Date Recorded In the past 12 months has [facility] [employer], [employer], oil, or water [employer] threatened to shut off services in your [...] How often do you attend chur or worship services? More than 4 times per year [...] pollen documented in this encounter Care Teams Wage And Salary Administrator Relationship Specialty Start Date End Date Cortney Chandra MD [address] [place] [address] PCP - General Family Medicine 04/30/19 [facility] 03/30/23 Primary Eye Care 03/30/23 documented as of this encounter Additional Source Comments PLEASE NOTE: Replies to this message will not be received.[facility] and [facility]
--- OUTSIDE RECORDS SUMMARY | 2024-04-12 14:11 | XMS_ITS | Encounter Summary ---
Author Organization [employer] [facility] Address [address] [place] [address] Care Team Providers Care Bridge Repairer Name Role Phone Unknown, Provider Primary Care Provider Unavaila Cortney Gomez MD Unavailable [phone] Cortney Chandra MD Primary Care Provider [phone]- [phone] Encounter Details Date Type Department Care Team (Late st Contact Info) Description 06/14/2018 Historical Conversion [facility] [address] [facility] [place] [address] Rosemary Aquino APRN,PAID SEARCH ANALYST [address] [place] [phone] Social History Tobacco Use Types Packs/Day Years Used Date Smoking Tobacco: Never Assessed Sex and Gender Information Value Date Recorded Sex Assigned at Not on file Gender Identity Female 01/16/2023 2:23 PM CDT Sexual Orientation Not on file documented as of this encounter Progress Notes * Rosemary Aquino, CHALINO,PAID SEARCH ANALYST - 06/14/2018 12:00 AM CST Assessment 1. [...] UA - Culture if Indicated; Status:Complete; Done: 35Rfc2656 09:17AM Reason For Visit Patient in with [...] TABLET THREE TIMES DAILY; Therapy: 30Sep2010 to (Evaluate:39Wcc7270) Requested for: 07Jul2016; Last Rx:07Jul2016 Ordered 3. Fluticasone Propionate 50 MCG/ACT Nasal Suspension; INSTILL 1 SPRAY DAILY IN EACH NOSTRIL; Therapy: 17Apr2009 to (Evaluate:14Apr2018) Requested for: 16Oct2017; Last Rx:16Oct2017 Ordered 4. Hydrocortisone 2.5 % External Cream; APPLY SPARINGLY TO AFFECTED AREA(S) TWICE DAILY; Therapy: 20Jul2015 to (Evaluate:42Vmu1800) Requested for: 17Jul2017; Last Rx:17Jul2017 Ordered 5. Loratadine 10 MG Oral Tablet; TAKE 1 TABLET BY MOUTH DAILY NEEDED; Therapy: 37Ncl4863 to (Evaluate:12Sep2018) Requested for: 17Sep2017; Last Rx:17Sep2017 Ordered 6. Losartan Potassium 100 MG Oral Tablet; TAKE 1 TABLET BY MOUTH ONCE DAILY; Therapy: 32Tod9328 to (Evaluate:12Jul2018) Requested for: 17Jul2017; Last Rx:17Jul2017 Ordered 7. MetFORMIN HCl ER 500 MG Oral Tablet Extended Release 24 Hour; TAKE 4 TABLETS( 2000MG) BY MOUTH ONCE DAILY; Therapy: 57Lbp1633 to (Evaluate:12Jul2018) Requested for: 17Jul2017; Last Rx:17Jul2017 Ordered 8. One-Daily Multi Vitamins Oral Tablet; TAKE 1 TABLET DAILY; Therapy: (Recorded:23Jul2012) to Recorded 9. Simvastatin 20 MG Oral Tablet; TAKE ONE TABLET BY MOUTH DAILY; Therapy: 56Xdv8772 to (Evaluate:12Jul2018) Requested for: 17Jul2017; Last Rx:17Jul2017 Ordered 10. Ventolin HFA 108 (90 Base) MCG/ACT Inhalation Aerosol Solution; INHALE 1 TO 2 PUFFS EVERY 4 TO 6 HOURS NEEDED; Therapy: 06Mar2017 to (Last Rx:06Mar2017) Requested for: 06Mar2017 Ordered 11. Vitamin D3 1000 UNIT Oral Tablet; takes 2 tablets daily; Therapy: (Recorded:55Xig6604) to Recorded Allergies 1. Ultram TABS Vitals [...] Electronically signed by : Rosemary Aquino, RN PAID SEARCH ANALYST RN,PAID SEARCH ANALYST; Jun 14 2018 12:24PM SENIOR CLIMATE ADVISOR Electronically signed by : Klever Nicole M.D.; Jul 15 2018 3:46PM SENIOR CLIMATE ADVISOR documented in this encounter Plan of Treatment Not on file documented as of this encounter Visit Diagnoses Not on filedocumented in this encounter Care Teams Bridge Repairer Relationship Specialty Start Date End Date Unknown, Provider . HIRAM PEGUERO [address] PCP - General 03/26/18 04/29/19 Cortney Chandra MD [address] [place] [phone] PCP - General Family Medicine 04/30/19 Cortney Chandra MD [address] [place] [phone] PCP Family Medicine 04/29/19 04/29/19 [facility] 03/30/23 Primary Eye Care 03/30/23 documented as of this encounter Additional Source Comments PLEASE NOTE: Replies to this message will not be received.[facility] and [facility]
--- OUTSIDE RECORDS SUMMARY | 2024-04-12 14:12 | XMS_ITS | Encounter Summary ---
Author Organization [employer] Address [address] [place] [address] Care Team Providers Care Oil Field Technician Name Role Phone Unknown, Provider Primary Care Provider Unavaila ble Cortney Chandra MD Unavailable [phone] Cortney Chandra MD Primary Care Provider [phone] Encounter Details Date Type Department Care Team (Late st Contact Info) Description 07/20/2015 Historical Conversion [facility] Family Medicine [address] [place] [address] [place] [address] Cortney Chandra MD [address] [place] [address] Social History Tobacco Use Types [...] 81 MG Oral Tablet; ONE DAILY; Last Rx:[id number] Ordered 2. Calcium 600/Vitamin D3 TABS; 1 [...] DAILY IN EACH NOSTRIL; Therapy: 17Apr2009 to (Evaluate:94Mos3164) Requested for: 09May2014; Last Rx:09May2014 Ordered 6. Loratadine 10 MG Oral Tablet; TAKE 1 TABLET BY MOUTH DAILY NEEDED; Therapy: 62Jii2545 to (Evaluate:48Evz0094) Requested for: 92Ckb5380; Last Rx:24Txl2456 Ordered 7. Losartan Potassium 100 MG Oral Tablet; TAKE 1 TABLET BY MOUTH ONCE DAILY; Therapy: 96Edn4978 to (Evaluate:97Tqr8547) Requested for: 13Feb2015; Last Rx:76Efr2235 Ordered 8. MetFORMIN HCl ER 500 MG Oral Tablet Extended Release 24 Hour; TAKE 4 TABLETS( 2000MG) BY MOUTH ONCE DAILY; Therapy: 74Ukf1441 to (Evaluate:66Mli1676) Requested for: 13Feb2015; Last Rx:13Feb2015 Ordered 9. One-Daily Multi Vitamins Oral Tablet; TAKE 1 TABLET DAILY; Therapy: (Recorded:23Jul2012) to Recorded 10. ProAir HFA 108 (90 Base) MCG/ACT Inhalation Aerosol Solution; INHALE 2 PUFFS EVERY 4 HOURS NEEDED FOR COUGHAND WHEEZE; Therapy: 26May2008 to (Last Rx:14May2015) Requested for: 14May2015 Ordered 11. Simvastatin 20 MG Oral Tablet; TAKE ONE TABLET BY MOUTH DAILY; Therapy: 34Nhd4818 to (Evaluate:11Jul2016) Requested for: 17Jul2015; Last Rx:17Jul2015 [...] Never smoked Review of Systems Female Complete [facility] [employer]: Constitutional: no fever and no chills. Eyes: [...] is a 65-year-old recently retired employee from [employer] that is here for her first Medicare [...] Cortney Chandra M.D.; Aug 07 2015 1:15PM MOBILE HEALTH VEHICLE OPERATOR documented in this encounter Plan of Treatment Not on file documented as of this encounter Visit Diagnoses Not on filedocumented in this encounter Care Teams Oil Field Technician Relationship Specialty Start Date End Date Unknown, Provider . HIRAM PEGUERO [address] PCP - General 03/26/18 04/29/19 Cortney Chandra MD [address] [place] [address] PCP - General Family Medicine 04/30/19 Cortney Chandra MD [address] [place] [address] PCP Family Medicine 04/29/19 04/29/19 [facility] 03/30/23 Primary Eye Care 03/30/23 documented as of this encounter Additional Source Comments PLEASE NOTE: Replies to this message will not be received.[facility] and [facility]
--- OUTSIDE RECORDS SUMMARY | 2024-04-12 14:12 | XMS_ITS | Encounter Summary ---
Author Organization [employer] Address [address] [place] [address] Care Team Providers Care Inspector Conveyor Line Name Role Phone Unknown, Provider Primary Care Provider Unavaila Cortney Gomez MD Unavailable [phone] Cortney Chandra MD Primary Care Provider [phone] Encounter Details Date Type Department Care Team (Late st Contact Info) Description 11/07/2014 Historical Conversion [facility] Family Medicine [address] [place] [address]. [place] [address] Cortney Chandra MD [address] [place] [address] Social History Tobacco Use Types [...] on filedocumented in this encounter Care Teams Inspector Conveyor Line Relationship Specialty Start Date End Date Unknown, Provider . HIRAM PEGUERO [address] PCP - General 03/26/18 04/29/19 Cortney Chandra MD [address] [place] [address] PCP - General Family Medicine 04/30/19 Cortney Chandra MD [address] [place] [address] PCP Family Medicine 04/29/19 04/29/19 [facility] 03/30/23 Primary Eye Care 03/30/23 documented as of this encounter Additional Source Comments PLEASE NOTE: Replies to this message will not be received.[facility] and [facility]
--- OUTSIDE RECORDS SUMMARY | 2024-04-12 14:12 | XMS_ITS | Encounter Summary ---
Author Organization [employer] Address [address] [place] [address] Care Team Providers Care Hand Woodworking Sander Name Role Phone Unknown, Provider Primary Care Provider Unavaila ble Cortney Chandra MD Unavailable [phone] Cortney Chandra MD Primary Care Provider [phone] Encounter Details Date Type Department Care Team (Late st Contact Info) Description 07/20/2015 Historical Conversion [facility] Family Medicine [address] [place] [address]. [place] [address] Cortney Chandra MD [address] [place] [address] Social History Tobacco Use Types Packs/Day Years Used Date Smoking Tobacco: Never Assessed Sex and Gender Information Value Date Recorded Sex Assigned at Not on file Gender Identity Female 01/16/2023 2:23 PM CDT Sexual Orientation Not on file documented as of this encounter Last Filed Vital Signs Vital Sign Reading Time Taken Comments Blood Pressure 132/76 07/20/2015 12:00 AM PORT ENGINEER Pulse - - Temperature - - Respiratory Rate - - Oxygen Saturation - - Inhaled Oxygen Concentration - - Weight 87.1 kg (192 lb 0.3 oz) 07/20/2015 12:00 AM PORT ENGINEER Height 164 cm (5' 4.57) 07/20/2015 12:00 AM PORT ENGINEER Body Mass Index 32.79 07/20/2015 12:00 AM PORT ENGINEER documented in this encounter Plan of Treatment Not on file documented as of this encounter Visit Diagnoses Not on filedocumented in this encounter Care Teams Hand Woodworking Sander Relationship Specialty Start Date End Date Unknown, Provider . HIRAM PEGUERO [address] PCP - General 03/26/18 04/29/19 Cortney Chandra MD [address] [place] [address] PCP - General Family Medicine 04/30/19 Cortney Chandra MD [address] [place] [address] PCP Family Medicine 04/29/19 04/29/19 [facility] 03/30/23 Primary Eye Care 03/30/23 documented as of this encounter Additional Source Comments PLEASE NOTE: Replies to this message will not be received.[facility] and [facility]
--- OUTSIDE RECORDS SUMMARY | 2024-04-12 14:12 | XMS_ITS | Continuity of Care Document ---
Author Organization [facility] Address [address] [place] [address] Phone Care Team Providers Care Handyperson Name Role Phone Farooq LOZADA, PhD, Joaquim [...] Procedures Procedure Date Office/Outpatient Visit,New, Mod 2023 Office/Outpatient Visit,New, Mod 2023 Advance Directives Directive Yes / No Effective Date File Name No Information Encounters Encounter Description Practice Location Reason(s) For Visit Diagnoses Date Provider Providers Copied on Encounter Office/Outpati ent Visit,New, Mod [facility] , [address], [place], [place], [id number], tel:[phone] [facility] Radiculopat hy, lumbar region Farooq March. [facility], [address], [place], [address], [place]. tel:[phone] Referring Provider: Joaquim Trivedi, [facility] [address], [place], [address]. tel:[phone] Family History Family Member Type Diagnosis Age At Onset Sister Problem (finding) Diabetes mellitus Payers Payer name Insurance type Covered libertarian ID Authoriza radha(s) [employer] Medicare [facility] CI [id number] Social History Type Description Quantity Date [...]
--- OUTSIDE RECORDS SUMMARY | 2024-04-12 14:12 | XMS_ITS | Encounter Summary ---
Author Organization [employer] Address [address] [place] [address] Care Team Providers Care Gristmiller Name Role Phone Unknown, Provider Primary Care Provider Unavaila ble Cortney Chandra MD Unavailable [phone] Cortney Chandra MD Primary Care Provider [phone] Encounter Details Date Type Department Care Team (Late st Contact Info) Description 09/01/2014 Historical Conversion [facility] Family Medicine [address] [place] [address]. [place] [address] Cortney Chandra MD [address] [place] [address] Social History Tobacco Use Types Packs/Day Years Used Date Smoking Tobacco: Never Assessed Sex and Gender Information Value Date Recorded Sex Assigned at Not on file Gender Identity Female 01/16/2023 2:23 PM CDT Sexual Orientation Not on file documented as of this encounter Last Filed Vital Signs Vital Sign Reading Time Taken Comments Blood Pressure 130/80 09/01/2014 12:00 AM STEWARD/STEWARDESS CHIEF CARGO VESSEL Pulse - - Temperature - - Respiratory Rate - - Oxygen Saturation - - Inhaled Oxygen Concentration - - Weight 85.7 kg (189 lb) 09/01/2014 12:00 AM STEWARD/STEWARDESS CHIEF CARGO VESSEL Height 163.8 cm (5' 4.5) 09/01/2014 12:00 AM CS T Body Mass Index 31.94 09/01/2014 12:00 AM STEWARD/STEWARDESS CHIEF CARGO VESSEL documented in this encounter Plan of Treatment Not on file documented as of this encounter Visit Diagnoses Not on filedocumented in this encounter Care Teams Gristmiller Relationship Specialty Start Date End Date Unknown, Provider . HIRAM PEGUERO [address] PCP - General 03/26/18 04/29/19 Cortney Chandra MD [address] [place] [address] PCP - General Family Medicine 04/30/19 Cortney Chandra MD [address] [place] [address] PCP Family Medicine 04/29/19 04/29/19 [facility] 03/30/23 Primary Eye Care 03/30/23 documented as of this encounter Additional Source Comments PLEASE NOTE: Replies to this message will not be received.[facility] and [facility]
--- OUTSIDE RECORDS SUMMARY | 2024-04-12 14:12 | XMS_ITS | Encounter Summary ---
Author Organization [employer] Address [address] [place] [address] Care Team Providers Care Easement Worker Name Role Phone Unknown, Provider Primary Care Provider UnavailCortney Dye MD Unavailable [phone] Cortney Chandra MD Primary Care Provider [phone] Encounter Details Date Type Department Care Team (Late st Contact Info) Description 12/25/2016 Historical Conversion [facility] Family Medicine [address] [place] [address]. 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 [address] PCP - General 03/26/18 04/29/19 Cortney Chandra MD [address] [place] [address] PCP - General Family Medicine 04/30/19 Cortney Chandra MD [address] [place] [address] PCP Family Medicine 04/29/19 04/29/19 [facility] 03/30/23 Primary Eye Care 03/30/23 documented as of this encounter Additional Source Comments PLEASE NOTE: Replies to this message will not be received.[facility] and [facility]
--- OUTSIDE RECORDS SUMMARY | 2024-04-12 14:12 | XMS_ITS | Encounter Summary ---
Author Organization [employer] Address [address] [place] [address] Care Team Providers Care Top Tile Decorator Name Role Phone Unknown, Provider Primary Care Provider Unavaila Cortney Gomez MD Unavailable [phone] Cortney Chandra MD Primary Care Provider [phone] Encounter Details Date Type Department Care Team (Late st Contact Info) Description 03/07/2016 Historical Conversion [facility] Family Medicine [address] [place] [address] Rosalia Lopez MD Social History Tobacco Use [...] CDT DERMATOLOGY OCTAVIO GALVAN : 1950 HX: [id number] DOS: 03/07/2016 CHIEF COMPLAINT: History of squamous [...] Rosalia Lopez M.D./la-7 cc: Cortney Chandra M.D./[facility] Electronically signed by:Rosalia Lopez M.D. Mar 13 2016 8:17AM CHAIN PEGGER documented in this encounter Plan of Treatment Not on file documented as of this encounter Visit Diagnoses Not on filedocumented in this encounter Care Teams Top Tile Decorator Relationship Specialty Start Date End Date Unknown, Provider . HIRAM PEGUERO [address] PCP - General 03/26/18 04/29/19 Cortney Chandra MD [address] [place] [address] PCP - General Family Medicine 04/30/19 Cortney Chandra MD [address] [place] [address] PCP Family Medicine 04/29/19 04/29/19 [facility] 03/30/23 Primary Eye Care 03/30/23 documented as of this encounter Additional Source Comments PLEASE NOTE: Replies to this message will not be received.[facility] and [facility]
--- OUTSIDE RECORDS SUMMARY | 2024-04-12 14:12 | XMS_ITS | Encounter Summary ---
Author Organization [employer] Address [address] [place] [address] Care Team Providers Care Manual Lathe Machinist Name Role Phone Unknown, Provider Primary Care Provider Unavaila ble Cortney Chandra MD Unavailable [phone] Cortney Chandra MD Primary Care Provider [phone] Encounter Details Date Type Department Care Team (Late st Contact Info) Description 08/19/2016 Historical Conversion [facility] Family Medicine [address] [place] [address] [place] [address] Cortney Chandra MD [address] [place] [address] Social History Tobacco Use Types Packs/Day Years Used Date Smoking Tobacco: Never Assessed Sex and Gender Information Value Date Recorded Sex Assigned at Not on file Gender Identity Female 01/16/2023 2:23 PM CDT Sexual Orientation Not on file documented as of this encounter Last Filed Vital Signs Vital Sign Reading Time Taken Comments Blood Pressure 132/78 08/19/2016 12:00 AM MILK WAGON DRIVER Pulse - - Temperature - - Respiratory Rate - - Oxygen Saturation - - Inhaled Oxygen Concentration - - Weight 86.2 kg (190 lb 0.6 oz) 08/19/2016 12:00 AM MILK WAGON DRIVER Height 163 cm (5' 4.17) 08/19/2016 12:00 AM MILK WAGON DRIVER Body Mass Index 32.44 08/19/2016 12:00 AM MILK WAGON DRIVER documented in this encounter Progress Notes [...] back pain, mostly on left side. Derick SCOUT SNIPER History of Present Illness Octavio developed left [...] TO 6 HOURS NEEDED; Therapy: 05Oct2012 to (Evaluate:95Clj9169); Last Rx:73Cjh0359 Ordered 3. Cyclobenzaprine HCl - 10 MG Oral Tablet; TAKE 1/2 TO 1 TABLET THREE TIMES DAILY; Therapy: 30Sep2010 to (Evaluate:53Mir5674) Requested for: 07Jul2016; Last Rx:07Jul2016 Ordered 4. Fluticasone Propionate 50 MCG/ACT Nasal Suspension; INSTILL 1 SPRAY DAILY IN EACH NOSTRIL; Therapy: 17Apr2009 to (Evaluate:15Dec2016) Requested for: 26Ozj8946; Last Rx:62Xdb1527 Ordered 5. Hydrocortisone 2.5 % External Cream; APPLY SPARINGLY TO AFFECTED AREA(S) TWICE DAILY; Therapy: 20Jul2015 to (Evaluate:28Jul2016) Requested for: 70Gft2415; Last Rx:92Oez4706 Ordered 6. Loratadine 10 MG Oral Tablet; TAKE 1 TABLET BY MOUTH DAILY NEEDED; Therapy: 88Eyj2205 to (Evaluate:12Sep2017) Requested for: 17Sep2016; Last Rx:17Sep2016 Ordered 7. Losartan Potassium 100 MG Oral Tablet; TAKE 1 TABLET BY MOUTH ONCE DAILY; Therapy: 79Fqu2236 to (Evaluate:18Jul2017) Requested for: 23Jul2016; Last Rx:23Jul2016 Ordered 8. MetFORMIN HCl ER 500 MG Oral Tablet Extended Release 24 Hour; TAKE 4 TABLETS( 2000MG) BY MOUTH ONCE DAILY; Therapy: 56Nwy0312 to (Evaluate:25Jul2017) Requested for: 30Jul2016; Last Rx:30Jul2016 Ordered 9. One-Daily Multi Vitamins Oral Tablet; TAKE 1 TABLET DAILY; Therapy: (Recorded:23Jul2012) to Recorded 10. Simvastatin 20 MG Oral Tablet; TAKE ONE TABLET BY MOUTH DAILY; Therapy: 58Qhd1642 to (Evaluate:18Jul2017) Requested for: 23Jul2016; Last Rx:23Jul2016 Ordered 11. Vitamin D3 1000 UNIT Oral Tablet; takes 2 tablets daily; Therapy: (Recorded:82Myo5509) to Recorded Allergies 1. Ultram TABS Vitals [...] Cortney Chandra M.D.; Dec 18 2016 8:57PM MILK WAGON DRIVER documented in this encounter H&P Notes * [...] Metabolic Panel; Status:Resulted - Requires Verification; Done: 13Ptj2324 10:48AM Controlled diabetes mellitus Hemoglobin A1C; Status:Resulted - Requires Verification; Done: 01Wyx5176 10:48AM Lipid Panel; Status:Resulted - Requires Verification; Done: 99Kyj0233 10:48AM Microalbumin (Random); Status:Resulted - Requires Verification; Done: 23Jga0396 10:48AM Fatigue, Screening for thyroid disorder TSH; Status:Resulted - Requires Verification; Done: 99Txi1874 10:48AM Health Maintenance Prevnar 13 Intramuscular Suspension Visit for screening mammogram Mammo Screen Bilat - 2109; Status:Resulted - Requires Verification; Done: 78Zer2195 11:12AM Vitamin D deficiency Drawing Fee; Status:Complete; Done: 60Oug1492 Vitamin D Total [facility]; Status:Resulted - Requires Verification; Done: 39Ftu2916 10:48AM Reason For Visit Pt. presents today for medicare px. Derick MATTHEWN History of Present Illness Octavio is here for annual Medicare wellness exam. She also is due for her labs for diabetes. She is felling well but does c/o pain in her left upper arm since an injury at [facility]. She slipped on the ice getting [...] Aspirin 81 MG TABS; ONE DAILY; Last Rx:39Vtm7470 Ordered 2. Cheratussin AC 100-10 MG/5ML Oral Syrup; TAKE 10 ML EVERY 4 TO 6 HOURS NEEDED; Therapy: 05Oct2012 to (Evaluate:80Sjj8228); Last Rx:12Qtp6056 Ordered 3. Cyclobenzaprine HCl - 10 MG Oral Tablet; TAKE 1/2 TO 1 TABLET THREE TIMES DAILY; Therapy: 30Sep2010 to (Evaluate:88Tpc2431) Requested for: 07Jul2016; Last Rx:07Jul2016 Ordered 4. Fluticasone Propionate 50 MCG/ACT Nasal Suspension; INSTILL 1 SPRAY DAILY IN EACH NOSTRIL; Therapy: 17Apr2009 to (Evaluate:15Dec2016) Requested for: 24Pgt5328; Last Rx:76Vew9184 Ordered 5. Hydrocortisone 2.5 % External Cream; APPLY SPARINGLY TO AFFECTED AREA(S) TWICE DAILY; Therapy: 20Jul2015 to (Evaluate:28Jul2016) Requested for: 14Eau7928; Last Rx:51Umo2348 Ordered 6. Loratadine 10 MG Oral Tablet; TAKE 1 TABLET BY MOUTH DAILY NEEDED; Therapy: 68Aha3802 to (Evaluate:18Mji4104) Requested for: 65Xph6940; Last Rx:31Toi9176 Ordered 7. Losartan Potassium 100 MG Oral Tablet; TAKE 1 TABLET BY MOUTH ONCE DAILY; Therapy: 46Wuy7293 to (Evaluate:18Jul2017) Requested for: 23Jul2016; Last Rx:23Jul2016 Ordered 8. MetFORMIN HCl ER 500 MG Oral Tablet Extended Release 24 Hour; TAKE 4 TABLETS( 2000MG) BY MOUTH ONCE DAILY; Therapy: 06Nbj8849 to (Evaluate:25Jul2017) Requested for: 30Jul2016; Last Rx:30Jul2016 Ordered 9. One-Daily Multi Vitamins Oral Tablet; TAKE 1 TABLET DAILY; Therapy: (Recorded:23Jul2012) to Recorded 10. Simvastatin 20 MG Oral Tablet; TAKE ONE TABLET BY MOUTH DAILY; Therapy: 87Xvv3094 to (Evaluate:18Jul2017) Requested for: 23Jul2016; Last Rx:23Jul2016 [...] affect. Results/Data Mammo Screen Bilat - 2109 47Mct0810 11:12AM Cortney Chandra Test Name Result Flag [...] Author: MAME ISRAEL M.D. Basic Metabolic Panel 48Hoo5399 10:48AM Cortney Chandra Test Name Result Flag [...] Dioxide 21 mmol/L L 22-30 Hemoglobin A1C 61Vgf2666 10:48AM Cortney Chandra Test Name Result Flag Reference Hemoglobin A1C 7.5 % H <5.7 Prediabetes 5.7% - 6.4% Diabetes >=6.5% Please note reference change as of 2015.. Estimated Average Glucose 169 mg/dl The eAG (estimated Average Glucose) is recommended by the [employer] to assist with patient education during glucose monitoring. Lipid Panel 37Teo4338 10:48AM Cortney Chandra Test Name Result Flag Reference Cholesterol 166 mg/dl < 200 Triglycerides 144 mg/dl < 150 HDL 56 mg/dl 40 or > LDL - Calculated 81 mg/dl < 130 *L/H Ratio 1.5 1.0-4.7 TSH 86Uay6674 10:48AM Cortney Chandra Test Name Result Flag Reference TSH 0.804 uIU/ml 0.30-4.70 Vitamin D Total [facility] 85Dkg4676 10:48AM Cortney Chandra Test Name Result Flag Reference Vitamin D Total - [facility] 43.1 ng/ml 30-100 Deficiency <10ng/mL Insufficiency 10-29 ng/mL Sufficiency 30-100 ng/mL Possible Toxicity >100 ng/mL Microalbumin (Random) 23Gfu8668 10:48AM Cortney Chandra Test Name Result Flag Reference Microalbumin, Raw 6.9 mg/L < 20 Microalbumin/Creat Ratio 4.4 ug/mg < 30 ug Microalb/mg UA Creat Creat, Urine 155.4 mg/dl Signatures Electronically signed by : Cortney Chandra M.D.; Aug 26 2016 8:22AM MILK WAGON DRIVER documented in this encounter Plan of Treatment Not on file documented as of this encounter Visit Diagnoses Not on filedocumented in this encounter Care Teams Manual Lathe Machinist Relationship Specialty Start Date End Date Unknown, Provider . HIRAM PEGUERO [address] PCP - General 03/26/18 04/29/19 Cortney Chandra MD [address] [place] [address] PCP - General Family Medicine 04/30/19 Cortney Cahndra MD [address] [place] [address] PCP Family Medicine 04/29/19 04/29/19 [facility] 03/30/23 Primary Eye Care 03/30/23 documented as of this encounter Additional Source Comments PLEASE NOTE: Replies to this message will not be received.[facility] and [facility]
--- OUTSIDE RECORDS SUMMARY | 2024-04-12 14:12 | XMS_ITS | Encounter Summary ---
Author Organization [employer] Address [address] [place] [address] Care Team Providers Care Order Entry Name Role Phone Unknown, Provider Primary Care Provider Unavaila Cortney Gomez MD Unavailable [phone] Cortney Chandra MD Primary Care Provider [phone] Encounter Details Date Type Department Care Team (Late st Contact Info) Description 06/16/2017 Historical Conversion [facility] Family Medicine [address] [place] [address] Rosalia Lopez MD Social History Tobacco Use Types Packs/Day Years Used Date Smoking Tobacco: Never Assessed Sex and Gender Information Value Date Recorded Sex Assigned at Not on file Gender Identity Female 01/16/2023 2:23 PM CDT Sexual Orientation Not on file documented as of this encounter Last Filed Vital Signs Vital Sign Reading Time Taken Comments Blood Pressure 136/81 06/16/2017 12:00 AM LOG GETTER Pulse - - Temperature - - Respiratory Rate - - Oxygen Saturation - - Inhaled Oxygen Concentration - - Weight 86.5 kg (190 lb 11.2 oz) 017 12:00 AM LOG GETTER Height - - Body Mass Index 32.56 08/19/2016 12:00 AM LOG GETTER documented in this encounter Progress Notes * Rosalia Lopez MD - 06/16/2017 12:00 AM CST DERMATOLOGY OCTAVIO GALVAN : 1950 HX: [id number] DOS: 06/16/2017 CHIEF COMPLAINT: History of squamous [...] lesion. Rosalia Lopez M.D./ cc: Cortney Chandra M.D./[facility] Electronically signed by:Rosalia Lopez M.D. Jun 23 2017 8:25AM LOG GETTER documented in this encounter Plan of Treatment Not on file documented as of this encounter Visit Diagnoses Not on filedocumented in this encounter Care Teams Order Entry Relationship Specialty Start Date End Date Unknown, Provider . HIRAM PEGUERO [address] PCP - General 03/26/18 04/29/19 Cortney Chandra MD [address] [place] [phone] PCP - General Family Medicine 04/30/19 Cortney Chandra MD [address] [place] [address] PCP Family Medicine 04/29/19 04/29/19 [facility] 03/30/23 Primary Eye Care 03/30/23 documented as of this encounter Additional Source Comments PLEASE NOTE: Replies to this message will not be received.[facility] and [facility]
--- OUTSIDE RECORDS SUMMARY | 2024-04-12 14:12 | XMS_ITS | Encounter Summary ---
Author Organization [employer] Address [address] [place] [address] Care Team Providers Care Occupancy Specialist Name Role Phone Unknown, Provider Primary Care Provider Unavaila ble Cortney Chandra MD Unavailable Cortney Chandra MD Primary Care Provider [phone]- [phone] Encounter Details Date Type Department Care Team (Late st Contact Info) Description 09/01/2014 Historical Conversion [facility] Family Medicine [address] [place] [address]. 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 Aspirin 81 MG Oral [...] BY MOUTH NEEDED; Therapy: 30Sep2010 to (Last Rx:[id number]) Requested for: 81Zda4177 Ordered 5. Fluticasone Propionate 50 MCG/ACT Nasal Suspension; INSTILL 1 SPRAY DAILY IN EACH NOSTRIL; Therapy: 17Apr2009 to (Evaluate:82Cvx2503) Requested for: 09May2014; Last Rx:09May2014 Ordered 6. Hydrochlorothiazide 25 MG Oral Tablet; TAKE ONE TABLET EVERY MORNING; Therapy: 26May2008 to (Evaluate:47Jfv4058) Requested for: 36Vmd0554; Last Rx:[id number] Ordered 7. Loratadine 10 MG Oral Tablet; TAKE 1 TABLET BY MOUTH DAILY NEEDED; Therapy: 99Yiy7472 to (Evaluate:12Xxt6041) Requested for: 04Jun2014; Last Rx:04Jun2014 Ordered 8. Losartan Potassium 100 MG Oral Tablet; TAKE 1 TABLET BY MOUTH ONCE DAILY; Therapy: 19Vgl7851 to (Evaluate:05Vya6261) Requested for: 13Feb2014; Last Rx:[id number] Ordered 9. MetFORMIN HCl ER 500 MG Oral Tablet Extended Release 24 Hour; TAKE 4 TABLETS( 2000MG) BY MOUTH ONCE DAILY; Therapy: 16Pem3987 to (Evaluate:05Vlv4251) Requested for: 94Wfd2714; Last Rx:[id number] Ordered 10. One-Daily Multi Vitamins Oral Tablet; TAKE 1 TABLET DAILY; Therapy: (Recorded:23Jul2012) to Recorded 11. ProAir HFA 108 (90 Base) MCG/ACT Inhalation Aerosol Solution; INHALE 2 PUFFS EVERY 4 HOURS NEEDED FOR COUGHAND WHEEZE; Therapy: 26May2008 to (Last Rx:09May2014) Requested for: 09May2014 Ordered 12. Simvastatin 20 MG Oral Tablet; TAKE ONE TABLET BY MOUTH DAILY; Therapy: 40Ead7937 to (Evaluate:04Dec2014) Requested for: 09Dec2013; Last Rx:09Dec2013 [...] Vital Signs [Data Includes: Current Encounter] Recorded: 36Hkg5664 08:19AM Blood Pressure 130 / 80, LUE, [...] Cortney Chandra M.D.; Sep 15 2014 10:14AM TELECOMMUNICATIONS LINESWORKER documented in this encounter Plan of Treatment Not on file documented as of this encounter Visit Diagnoses Not on filedocumented in this encounter Care Teams Occupancy Specialist Relationship Specialty Start Date End Date Unknown, Provider . HIRAM PEGUERO [id number] PCP - General 03/26/18 04/29/19 Cortney Chandra MD [address] [place] [address] PCP - General Family Medicine 04/30/19 Cortney Chandra MD [address] [place] [address] PCP Family Medicine 04/29/19 04/29/19 [facility] 03/30/23 Primary Eye Care 03/30/23 documented as of this encounter Additional Source Comments PLEASE NOTE: Replies to this message will not be received.[facility] and [facility]
--- OUTSIDE RECORDS SUMMARY | 2024-04-12 14:12 | XMS_ITS | Encounter Summary ---
Author Organization [employer] Address [address] [place] [address] Care Team Providers Care Chief Revenue Officer Name Role Phone Unknown, Provider Primary Care Provider Unavaila ble Cortney Chandra MD Unavailable [phone] Cortney Chandra MD Primary Care Provider [phone]- [phone] Encounter Details Date Type Department Care Team (Late st Contact Info) Description 11/18/2013 Historical Conversion [facility] Family Medicine [address] [place] [address] [place] [address] Cortney Chandra MD [address] [place] [address] Social History Tobacco Use Types [...] Encounter] Recorded by : Marya Lyons at [id number] 10:47AM Blood Pressure 118 / 70, LUE, [...] on filedocumented in this encounter Care Teams Chief Revenue Officer Relationship Specialty Start Date End Date Unknown, Provider . HIRAM PEGUERO [address] PCP - General 03/26/18 04/29/19 Cortney Chandra MD [address] [place] [address] PCP - General Family Medicine 04/30/19 Cortney Chandra MD [address] [place] [address] PCP Family Medicine 04/29/19 04/29/19 [facility] 03/30/23 Primary Eye Care 03/30/23 documented as of this encounter Additional Source Comments PLEASE NOTE: Replies to this message will not be received.[facility] and [facility]
--- OUTSIDE RECORDS SUMMARY | 2024-04-12 14:12 | XMS_ITS | Encounter Summary ---
Author Organization [facility] Address [address] [place] [address] Care Team Providers Care Founder Name Role Phone Unknown, Provider Primary Care Provider Unavaila ble Cortney Chandra MD Unavailable [phone] Cortney Chandra MD Primary Care Provider [phone] Encounter Details Date Type Department Care Team (Late st Contact Info) Description 08/10/2015 Historical Conversion [facility] Family Medicine [address] [place] [address] [place] [address] Cortney Chandra MD [address] [place] [address] Social History Tobacco Use Types [...] for c/o pain/tingling in Rt. arm. 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 Allergic rhinitis due [...] 81 MG Oral Tablet; ONE DAILY; Last Rx:[id number] Ordered 2. Calcium 600/Vitamin D3 TABS; 1 [...] DAILY IN EACH NOSTRIL; Therapy: 17Apr2009 to (Evaluate:66Esn7174) Requested for: 09May2014; Last Rx:09May2014 Ordered 6. Hydrocortisone 2.5 % External Cream; APPLY SPARINGLY TO AFFECTED AREA(S) TWICE DAILY; Therapy: 20Jul2015 to (Last Rx:20Jul2015) Requested for: 20Jul2015 Ordered 7. Loratadine 10 MG Oral Tablet; TAKE 1 TABLET BY MOUTH DAILY NEEDED; Therapy: 02Uzz9100 to (Evaluate:97Eni8607) Requested for: 55Tth2524; Last Rx:89Drj4864 Ordered 8. Losartan Potassium 100 MG Oral Tablet; TAKE 1 TABLET BY MOUTH ONCE DAILY; Therapy: 95Olo3068 to (Evaluate:14Jul2016) Requested for: 20Jul2015; Last Rx:20Jul2015 Ordered 9. MetFORMIN HCl ER 500 MG Oral Tablet Extended Release 24 Hour; TAKE 4 TABLETS( 2000MG) BY MOUTH ONCE DAILY; Therapy: 49Sur5458 to (Evaluate:14Jul2016) Requested for: 20Jul2015; Last Rx:20Jul2015 [...] TAKE ONE TABLET BY MOUTH DAILY; Therapy: 77Wdt8665 to (Evaluate:14Jul2016) Requested for: 20Jul2015; Last Rx:20Jul2015 [...] Vital Signs [Data Includes: Current Encounter] Recorded: 84Rhj2536 02:56PM Blood Pressure 136 / 92, RUE, [...] traction would benefit Status: Active Requested for: 77Ofu0481 Care Summary provided. : Yes With: : [facility] PT/OT DEPT Related: : No Encounter: : No Phone Number to Contact Patient: : home [phone] to Provider, Practice or Agency: : PT at [facility] 2. 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 HIRAM PEGUERO [address] PCP - General 03/26/18 04/29/19 Cortney Chandra MD [address] [place] [address] PCP - General Family Medicine 04/30/19 Cortney Chandra MD [address] [place] [address] PCP Family Medicine 04/29/19 04/29/19 [facility] 03/30/23 Primary Eye Care 03/30/23 documented as of this encounter Additional Source Comments PLEASE NOTE: Replies to this message will not be received.[facility] and [facility]
== END 2024-04-12 13:56 | disposition home or self-care (01) ==
PROVIDERS: PCP Internal Medicine; Visit Provider Internal Medicine
DX: E11.9 Type 2 diabetes mellitus without complications (principal); D64.9 Anemia, unspecified; I10 Essential (primary) hypertension; E53.8 Deficiency of other specified B group vitamins
CPT/HCPCS: 80053; 82607; 82728; 83540; 83550

== ENCOUNTER 2024-05-18 13:40 | Outpatient (CLI) | payer MEDICARE, SELFPAY ==
--- OUTSIDE RECORDS SUMMARY | 2024-05-18 13:43 | XMS_ITS | Clinical Summary ---
Author Organization [employer] Address [address] [place] [address] Care Team Providers Care Casino Cashier Name Role Phone Cortney Espinosa MD Primary Care Provider [phone] Allergies Active Allergy Reactions Criticality Noted Date Comments Tramadol Nausea and / or Vomiting Low 04/29/2019 Medications Medication Sig Dispensed Refills Start Date End Date Status albuterol HFA (AKA: PROVENTIL/VENTOLIN) 90 mcg/actuation inhalation HFA Aerosol Inhaler 1-2 Puffs by inhalation route every 4 hours if needed for shortness of breath. Active G-C-P-zinc-sod selenate-copper (AKA: OCUVITE, PROSIGHT) 5,000-60-30 ziop-ut-jjak oral Tablet Take 1 Tablet by mouth [...] Active fluticasone propionate (FLONASE) 50 mcg/actuation nasal [place], SuspensionIndication s:Allergic rhinitis due to pollen, unspecified [...] MOUTH EVERY DAY 90 Tablet 03/01/2024 Active loratadine (CLARITIN) 10 mg oral TabletIndications:No n-seasonal allergic rhinitis due to pollen Take 1 Tablet (10 mg) by mouth in the morning. 90 Tablet 3 03/09/2024 Active simvastatin (ZOCOR) 20 mg oral TabletIndications:Ot her hyperlipidemia Take 1 Tablet (20 mg) by mouth in the evening. 90 Tablet 3 04/13/2024 Active Active Problems Problem Noted Date Diagnosed Date Vitamin D deficiency Solar elastosis Infection due to yeast Controlled diabetes mellitus Combined systolic and diastolic hypertension Allergic rhinitis due to pollen Encounters Date Type Department Care Team Description 05/09/2024 Telephone [facility] [address] [place] [address] Zahraa Larson, LUCIA Chief Comp: Medicare Wellness 05/06/2024 Telephone [facility] [address] [place] [address] Jodie Alford LPN Chief Comp: Questions 05/06/2024 Telephone [facility] [address] [place] [address] Ely Ragland CMA Chief Comp: Medicare Wellness 04/13/2024 Telephone [facility] [address] [place] [address] Daryl Mary RN Dx: Other hyperlipidemia (Primary Dx) 04/07/2024 Telephone [place] [id number] [place] [address] Cortney Espinosa MD Chief Comp: Questions 04/05/2024 Telephone [place] [address] [place] [address] Ingrid George, LUCIA Chief Comp: Questions 03/08/2024 Patient Message [facility] [address] [place] [address] Cortney Espinosa MD Dx: Other hyperlipidemia 03/01/2024 Refill [place] [address] [place] [address] Cortney Espinosa MD Dx: Essential hypertension (Primary Dx) 02/19/2024 Refill [place] [address] [place] [address] Cortney Espinosa MD Dx: Type 2 diabetes mellitus with stage 1 chronic kidney disease, without long-term current use of insulin (HCC) (Primary Dx) from Last 3 Months Immunizations Name Administration Dates Next Due Hepatitis B Vaccine, IM, Lasr lt (Recombivax) (Engerix-B) 02/01/2009,08/11/1990,02/01/1990,1989 Influenza Vac, H1N1 [...] drink = 0.6 oz pur e alcohol) [facility] Utilities Answer Date Recorded In the past 12 months has e [employer], gas, oil, or water [employer] threatened to shut off services in your [...] How often do you attend [facility] or episcopal services? More than 4 times per year 08/15/2023 Do you belong to any clubs o r organizations such as roman catholic groups, unions, fraternal or athletic groups, or [...] and heating? Not hard at all 08/15/2023 [facility] - [...] Comments Blood Pressure 139/81 08/21/2023 9:47 AM IMCU SPECIALIST Pulse 77 08/21/2023 9:47 AM IMCU SPECIALIST Temperature 36.9 ??C (98.5 ??F) 08/21/2023 9:47 AM CS T Respiratory Rate 18 08/21/2023 9:47 AM IMCU SPECIALIST Oxygen Saturation 96% 08/21/2023 9:47 AM IMCU SPECIALIST Inhaled Oxygen Concentration - - Weight 73 kg (161 lb) 08/21/2023 9:47 AM IMCU SPECIALIST Height 161.1 cm (5' 3.43) 03/30/2023 [...] 03/30/2024 03/30/2023, 02/04, 02/04/2021, Additional history exists Renal Assessment 03/30/2024 03/30/2023, , 09/25/2017, Additional history exists Foot Exam 04/03/2024 04/03/2023, 03/07, 04/03/2023, Additional history exists Depression Screening 08/20/2024 08/20/2023, 08/20/19 24 Eye Exam 12/24/2024 12/25/2023, 12/04, 11/03/2018, Additional history exists Medicare Annual Visit 04/19/2025 04/19/2024 , 03/30/2023, 02/28/2022, Additional history exists DTaP/Tdap/Td Vaccines (3 - [...] GLYCOSYLATED HEMOGLOBIN, A1C Routine 09/10/2023 9:59 AM IMCU SPECIALIST Type 2 diabetes mellitus with stage [...] EYE EXAM - EXTERNAL (12/25/2023) RETINOPATHY Negative [facility] Cortney Espinosa MD [facility] [address] [address], * GLYCOSYLATED HEMOGLOBIN, A1C (09/10/2023 9:59 AM IMCU SPECIALIST) Hemoglobin A1c 6.3 <=6.4 % 09/10/2023 10:27 AM IMCU SPECIALIST [facility] Estimated Average Glucose 134 mg/dL 09/10/2023 10:27 AM IMCU SPECIALIST [facility] Blood VENOUS BLOOD / Unknown Venipuncture / Unknown 09/10/2023 9:59 AM IMCU SPECIALIST 09/10/2023 9:59 AM IMCU SPECIALIST Cortney Espinosa MD LAB CHEMISTRY ORDE RABLES Performing Organization Address City/[facility] Co de Phone Number [facility] [address] [place] [address], [place] [phone] * MICROALBUMIN, RANDOM, URINE (03/30/2023 11:28 AM CDT) Microalbumin, Urine <12.0 mg/L 03/30/2023 1:[address] [facility] Creatinine, Urine 71.1 mg/dL 03/30/2023 1:[address] [facility] Microalbumin/Cr eatinine Ratio 03/30/2023 1:[address] [facility] Comment: Unable to calculate ratio due to decreased Microalbumin. Normal: <30 Microalbuminuria: 30-299 Clinical Microalbuminuria: >300 Urine SPOT URINE SPECIMEN / Unknown Non-blood Collection / Unknown 03/30/2023 11:28 AM CDT 03/30/2023 11:28 AM CDT Cortney Espinosa MD LAB URINE ORDERABL ES Performing Organization Address City/[facility]/ZIP Co de Phone Number [facility] [address] [place] [address], [place] [phone] * (ABNORMAL) LIPID PANEL (03/30/2023 11:28 AM CDT) Cholesterol 138 0 - 200 mg/dL 03/30/2023 1:[address] [facility] Triglycerides 86 0 - 150 mg/dL 03/30/2023 1:[address] [facility] Cholesterol, LDL (Calculated) 69 <=100 mg/dL 03/30/2023 1:[address] [facility] Cholesterol, HDL 52(L) 60 - 150 mg/dL 03/30/2023 1:[address] [facility] Cholesterol, vLDL 17 0 - 130 mg/dL 03/30/2023 1:[address] [facility] Fasting Status Yes 03/30/2023 1:[address] [facility] Blood VENOUS BLOOD / Unknown Venipuncture / Unknown 03/30/2023 11:28 AM CDT 03/30/2023 11:28 AM CDT Cortney Espinosa MD LAB CHEMISTRY ZACH GALAN [facility] Organization Address City/State/ZIP Co de Phone Number [facility] [address] [place] [address], * DEXA HIP AND SPINE (02/26/2021 10:38 [...] PM CDT) 03/01/2020 12:0 1 PM CDT [facility] GI - 03/01/2020 1:05 PM CDT Patient Name: SUMAYA GALVAN Procedure Date: 03/01/2020 Date of : 1950 Attending MD: BILLY ESPINOSA MD Referring MD CORTNEY ESPINOSA Additional Staff Jade ??Min, Greenstone Polisher Operator; Malini ??LUCIA Quiros Patient Profile - ??Refer [...] without bleeding Diagnosis Code(s)CPT(R) - 2019 copyright [employer]. All Rights Reserved. Diagnosis Code(s)The CPT codes, CCI edits and ICD codes generated are intended as suggestions and were generated based on input data. ??These codes are preliminary and upon unloader operator review may be revised to meet current compliance and payer requirements. ??The provider is responsible for the final determination of appropriate codes, and modifiers. Scope Withdrawal Time 00:12:06 Signature Name: Billy Espinosa Signature Statement:This document has been electronically signed. Note Initiated On:03/01/2020 Signature Date:03/01/2020 1:05 PM Cortney Espinosa MD GI PROCEDURES [facility] [address] [place] [address], [place] from Last 3 Months or Most Recently Relevant to Health Maintenance Advance Directives Documents on File Type Date Recorded Patient Strategic Account Executive Expl anation Physician Orders for Life-Sustaining Treatment (POLST) 05/18/2023 2:28 PM POLST POLST-S 04/03/2023 2:26 PM Advanced Directives 06/06/2020 1:42 PM [facility] Health Care Directive-S 02/17/2005 1:42 PM Care Teams Casino Cashier Relationship Specialty Start Date End Date Cortney Espinosa MD [address] [place] [address] PCP - General Family Medicine 04/30/19 [facility] 03/30/23 Primary Eye Care 03/30/23 Additional Source Comments PLEASE NOTE: Replies to this message will not be received.[facility] and [facility]
--- OUTSIDE RECORDS SUMMARY | 2024-05-18 13:43 | XMS_ITS | Encounter Summary ---
Author Organization [employer] Address [address] [place] [address] Care Team Providers Care Framework Developer Name Role Phone Cortney Chandra MD Primary Care Provider [phone] Reason for Visit * Reason Onset Date Comments Questions 04/05/2024 Encounter Details Date Type Department Care Team (Late st Contact Info) Description 04/05/2024 Telephone [place] [id number] [facility] [place], [place] [id number] Ingrid George RN Chief Comp: Questions Social History Tobacco Use Types Packs/Day Years Used Date Smoking Tobacco: Never Smokeless Tobacco: Never Alcohol Use Standard Drinks/Week Comments Never 0 (1 standard drink = 0.6 oz pur e alcohol) [facility] Utilities Answer Date Recorded In the [...] often do you attend chur ch or christianity services? More than 4 times per year 08/15/2023 Do you belong to any clubs o r organizations such as moravian groups, unions, fraternal or athletic groups, or [...] and heating? Not hard at all 08/15/2023 [facility] - Occupational [...] 04/05/2024 8:38 AM CDT ----- Message from Trovali sent at 04/04/2024 4:28 PM CDT ----- Regarding: Call Back Fermin from [facility]. Would like a call back at . Aware you will be in the office on Thursday. Thank you. documented in this encounter Plan of Treatment Not on file documented as of this encounter Visit Diagnoses Not on filedocumented in this encounter Care Teams Framework Developer Relationship Specialty Start Date End Date Cortney Chandra MD [address] [place] [address] PCP - General Family Medicine 04/30/19 [facility] 03/30/23 Primary Eye Care 03/30/23 documented as of this encounter Additional Source Comments PLEASE NOTE: Replies to this message will not be received.[facility] and [facility]
--- OUTSIDE RECORDS SUMMARY | 2024-05-18 13:43 | XMS_ITS | Encounter Summary ---
Author Organization [employer] Address [address] [place] [address] Care Team Providers Care Double Cutter Name Role Phone Cortney Chandra MD Primary Care Provider [phone] Reason for Visit * Reason Onset Date Comments Refill Request 02/19/2024 Encounter Details Date Type Department Care Team ([facility] st Contact Info) Description 02/19/2024 Refill [facility] Medicine [address] [place] [address] Cortney Chandra MD [address] [place] [address] Dx: Type 2 diabetes mellitus with stage 1 chronic kidney disease, without long-term current use of insulin (HCC) (Primary Dx) Social History Tobacco Use Types Packs/Day Years Used Date Smoking Tobacco: Never Smokeless Tobacco: Never Alcohol Use Standard Drinks/Week Comments Never 0 (1 standard drink = 0.6 oz pur e alcohol) [facility] Utilities Answer Date Recorded In the [...] any clubs o r organizations such as latter day groups, unions, fraternal or athletic groups, or [...] Primary documented in this encounter Care Teams Double Cutter Relationship Specialty Start Date End Date Cortney Chandra MD [address] [place] [address] PCP - General Family Medicine 04/30/19 [facility] 03/30/23 Primary Eye Care 03/30/23 documented as of this encounter Additional Source Comments PLEASE NOTE: Replies to this message will not be received.[facility] and [facility]
--- OUTSIDE RECORDS SUMMARY | 2024-05-18 13:43 | XMS_ITS | Encounter Summary ---
Author Organization [employer] Address [address] [place] [address] Care Team Providers Care Bench Worker Name Role Phone Unknown, Provider Primary Care Provider UnavailCortney Dye MD Unavailable [phone] Cortney Chandra MD Primary Care Provider [phone] Encounter Details Date Type Department Care Team (Late st Contact Info) Description 06/14/2018 Historical Conversion [facility] Family Medicine [address] [place] [address] Rosemary Aquino, RN OFFICE,LEAK DETECTION ENGINEER [address] [place] [address] Social History Tobacco Use Types Packs/Day Years Used Date Smoking Tobacco: Never Assessed Sex and Gender Information Value Date Recorded Sex Assigned at Not on file Gender Identity Female 01/16/2023 2:23 PM CDT Sexual Orientation Not on file documented as of this encounter Last Filed Vital Signs Vital Sign Reading Time Taken Comments Blood Pressure 144/88 06/14/2018 12:00 AM FRUIT VENDOR Pulse - - Temperature - - Respiratory Rate - - Oxygen Saturation - - Inhaled Oxygen Concentration - - Weight 87 kg (191 lb 12.8 oz) 06/14/2018 12:00 A M FRUIT VENDOR Height - - Body Mass Index 32.75 09/25/2017 12:00 AM CDT documented in this encounter Plan of Treatment Not on file documented as of this encounter Visit Diagnoses Not on filedocumented in this encounter Care Teams Bench Worker Relationship Specialty Start Date End Date Unknown, Provider . HIRAM PEGUERO [address] PCP - General 03/26/18 04/29/19 Cortney Chandra MD [address] [place] [address] PCP - General Family Medicine 04/30/19 Cortney Chandra MD [address] [place] [address] PCP Family Medicine 04/29/19 04/29/19 [facility] 03/30/23 Primary Eye Care 03/30/23 documented as of this encounter Additional Source Comments PLEASE NOTE: Replies to this message will not be received.[facility] and [facility]
--- OUTSIDE RECORDS SUMMARY | 2024-05-18 13:43 | XMS_ITS | Encounter Summary ---
Author Organization [employer] Address [address] [place] [address] Care Team Providers Care Clarifier Name Role Phone Cortney Chandra MD Primary Care Provider [phone]- [phone] Reason for Visit * Reason Onset Date Comments Medicare Wellness 05/06/2024 Encounter Details Date Type Department Care Team (Late st Contact Info) Description 05/06/2024 Telephone [facility] [address] [facility] [place], [place] [id number] Ely Ragland CMA Chief Comp: Medicare Wellness Social History Tobacco Use Types Packs/Day Years Used Date Smoking Tobacco: Never Smokeless Tobacco: Never Alcohol Use Standard Drinks/Week Comments Never 0 (1 standard drink = 0.6 oz pur e alcohol) [facility] Utilities Answer Date Recorded In the [...] often do you attend chur ch or hindu services? More than 4 times per year 08/15/2023 Do you belong to any clubs o r organizations such as voodoo groups, unions, fraternal or athletic groups, or [...] and heating? Not hard at all 08/15/2023 [facility] Occupat ional Health - Occupational Stress [...] encounter Miscellaneous Notes * Telephone Encounter - Ely Ragland CMA - 05/06/2024 1:48 PM CDT Left message for Sumaya that she is due for her Medicare Annual Visit (previous was 03/30/24) documented in this encounter Plan of Treatment Not on file documented as of this encounter Visit Diagnoses Not on filedocumented in this encounter Care Teams Clarifier Relationship Specialty Start Date End Date Cortney Chandra MD [address] [place] [address] PCP - General Family Medicine 04/30/19 [facility] 03/30/23 Primary Eye Care 03/30/23 documented as of this encounter Additional Source Comments PLEASE NOTE: Replies to this message will not be received.[facility] and [facility]
--- OUTSIDE RECORDS SUMMARY | 2024-05-18 13:43 | XMS_ITS | Encounter Summary ---
Author Organization [employer] Address [address] [place] [address] Care Team Providers Care Salvage Winder Name Role Phone Unknown, Provider Primary Care Provider Unavaila Cortney Gomez MD Unavailable [phone] Cortney Chandra MD Primary Care Provider [phone] Encounter Details Date Type Department Care Team (Late st Contact Info) Description 06/14/[address] [facility] Family Medicine [address] [facility] [place] [address] Rosemary Aquino APRN,LOGGING EQUIPMENT OPERATOR [address] [place] [phone] Social History Tobacco Use Types Packs/Day Years Used Date Smoking Tobacco: Never Assessed Sex and Gender Information Value Date Recorded Sex Assigned at Not on file Gender Identity Female 01/16/2023 2:23 PM CDT Sexual Orientation Not on file documented as of this encounter Progress Notes * Rosemary Aquino, CHALINO,LOGGING EQUIPMENT OPERATOR - 06/14/2018 12:00 AM CST Assessment [...] UA - Culture if Indicated; Status:Complete; Done: 49Tfm1268 09:17AM Reason For Visit Patient in with [...] TABLET THREE TIMES DAILY; Therapy: 30Sep2010 to (Evaluate:44Wvx0284) Requested for: 07Jul2016; Last Rx:07Jul2016 Ordered 3. Fluticasone Propionate 50 MCG/ACT Nasal Suspension; INSTILL 1 SPRAY DAILY IN EACH NOSTRIL; Therapy: 17Apr2009 to (Evaluate:14Apr2018) Requested for: 16Oct2017; Last Rx:16Oct2017 Ordered 4. Hydrocortisone 2.5 % External Cream; APPLY SPARINGLY TO AFFECTED AREA(S) TWICE DAILY; Therapy: 20Jul2015 to (Evaluate:64Xpj7812) Requested for: 17Jul2017; Last Rx:17Jul2017 Ordered 5. Loratadine 10 MG Oral Tablet; TAKE 1 TABLET BY MOUTH DAILY NEEDED; Therapy: 05Qjf9433 to (Evaluate:12Sep2018) Requested for: 17Sep2017; Last Rx:17Sep2017 Ordered 6. Losartan Potassium 100 MG Oral Tablet; TAKE 1 TABLET BY MOUTH ONCE DAILY; Therapy: 43Xcb9530 to (Evaluate:12Jul2018) Requested for: 17Jul2017; Last Rx:17Jul2017 Ordered 7. MetFORMIN HCl ER 500 MG Oral Tablet Extended Release 24 Hour; TAKE 4 TABLETS( 2000MG) BY MOUTH ONCE DAILY; Therapy: 50Mkg5619 to (Evaluate:12Jul2018) Requested for: 17Jul2017; Last Rx:17Jul2017 Ordered 8. One-Daily Multi Vitamins Oral Tablet; TAKE 1 TABLET DAILY; Therapy: (Recorded:23Jul2012) to Recorded 9. Simvastatin 20 MG Oral Tablet; TAKE ONE TABLET BY MOUTH DAILY; Therapy: 36Rhn1456 to (Evaluate:12Jul2018) Requested for: 17Jul2017; Last Rx:17Jul2017 Ordered 10. Ventolin HFA 108 (90 Base) MCG/ACT Inhalation Aerosol Solution; INHALE 1 TO 2 PUFFS EVERY 4 TO 6 HOURS NEEDED; Therapy: 06Mar2017 to (Last Rx:06Mar2017) Requested for: 06Mar2017 Ordered 11. Vitamin D3 1000 UNIT Oral Tablet; takes 2 tablets daily; Therapy: (Recorded:76Cau5381) to Recorded Allergies 1. Ultram TABS Vitals [...] Electronically signed by : Rosemary Aquino, RN LOGGING EQUIPMENT OPERATOR RN,LOGGING EQUIPMENT OPERATOR; Jun 14 2018 12:24PM BEAD STRINGER Electronically signed by : Klever Nicole M.D.; Jul 15 2018 3:46PM BEAD STRINGER documented in this encounter Plan of Treatment Not on file documented as of this encounter Visit Diagnoses Not on filedocumented in this encounter Care Teams Salvage Winder Relationship Specialty Start Date End Date Unknown, Provider . HIRAM PEGUERO [id number] PCP - General 03/26/18 04/29/19 Cortney Chandra MD [address] [place] [phone] PCP - General Family Medicine 04/30/19 Cortney Chandra MD [address] [place] [phone] PCP Family Medicine 04/29/19 04/29/19 [facility] 03/30/23 Primary Eye Care 03/30/23 documented as of this encounter Additional Source Comments PLEASE NOTE: Replies to this message will not be received.[facility] and [facility]
--- OUTSIDE RECORDS SUMMARY | 2024-05-18 13:43 | XMS_ITS | Encounter Summary ---
Author Organization [employer] Address [address] [place] [address] Care Team Providers Care Executive Producer Promos Name Role Phone Cortney Chandra MD Primary Care Provider [phone] Reason for Visit * Reason Onset Date Comments Medicare Wellness 05/09/2024 Encounter Details Date Type Department Care Team (Late st Contact Info) Description 05/09/2024 Telephone [facility] [address] [facility] [place], [place] [id number] Zahraa Larson RN Chief Comp: Medicare Wellness Social History Tobacco Use Types Packs/Day Years Used Date Smoking Tobacco: Never Smokeless Tobacco: Never Alcohol Use Standard Drinks/Week Comments Never 0 (1 standard drink = 0.6 oz pur e alcohol) [facility] Utilities Answer Date Recorded In [...] often do you attend chur ch or catholic services? More than 4 times per year [...] and heating? Not hard at all 08/15/2023 [facility] - Occupational [...] encounter Miscellaneous Notes * Telephone Encounter - Zahraa Larson RN - 05/09/2024 11:05 AM CST Called patient to verify her last Medicare Annual Wellness visit. She is staying in [place] at the present time. She has a terrible fall on March 05 and has been in the hospital and currently doing rehab with PT and OT coming to the house. She had a MAW visit at the [facility] about a month/month and half ago. She does plan on coming back to [place] when she is done with PT and OT and will make an appointment to come in and see Dr. Day. CLUB MAKER documented in this encounter Plan of Treatment Not on file documented as of this encounter Visit Diagnoses Not on filedocumented in this encounter Care Teams Executive Producer Promos Relationship Specialty Start Date End Date Cortney Chandra MD [address] [place] [phone] PCP - General Family Medicine 04/30/19 [facility] 03/30/23 Primary Eye Care 03/30/23 documented as of this encounter Additional Source Comments PLEASE NOTE: Replies to this message will not be received.[facility] and [facility]
--- OUTSIDE RECORDS SUMMARY | 2024-05-18 13:43 | XMS_ITS | Encounter Summary ---
Author Organization [employer] Address [address] [place] [address] Care Team Providers Care Silica Dry Press Helper Name Role Phone Cortney Chandra MD Primary Care Provider [phone]- [phone] Encounter Details Date Type Department Care Team (Latest Contact Info) Description 03/08/2024 Patient Message [facility] [address] [place], [place] [id number] Cortney Chandra MD [address] [place] [phone] Dx: Other hyperlipidemia Social History Tobacco Use Types Packs/Day Years Used Date Smoking Tobacco: Never Smokeless Tobacco: Never Alcohol Use Standard Drinks/Week Comments Never 0 (1 standard drink = 0.6 oz pur e alcohol) [facility] Utilities Answer Date Recorded In the past 12 months has [facility] [employer], [employer], oil, or water [facility] threatened to shut off services in your [...] any clubs o r organizations such as yazidism groups, unions, fraternal or athletic groups, or [...] heating? Not hard at all 08/15/2023 [facility] - [...] place to sleep or slept in a snf (including now)? No 08/15/2023 Depression (PHQ-9) Answer [...] pollen documented in this encounter Care Teams Silica Dry Press Helper Relationship Specialty Start Date End Date Cortney Chandra MD [address] [place] [phone] PCP - General Family Medicine 04/30/19 [facility] 03/30/23 Primary Eye Care 03/30/23 documented as of this encounter Additional Source Comments PLEASE NOTE: Replies to this message will not be received.[facility] and [facility]
--- OUTSIDE RECORDS SUMMARY | 2024-05-18 13:43 | XMS_ITS | Encounter Summary ---
Author Organization [employer] [facility] Address [address] [place] [address] Care Team Providers Care Manager Staffing Name Role Phone Unknown, Provider Primary Care Provider Unavaila Cortney Gomez MD Unavailable [phone] Cortney Chandra MD Primary Care Provider [phone]- [phone] Encounter Details Date Type Department Care Team (Late st Contact Info) Description 08/13/2018 Historical Conversion [facility] Family Medicine [address] [facility] [place] [address] Rosemary Aquino APRN,PAINTER APPRENTICE [address] [place] [phone] Social History Tobacco Use Types Packs/Day Years Used Date Smoking Tobacco: Never Assessed Sex and Gender Information Value Date Recorded Sex Assigned at Not on file Gender Identity Female 01/16/2023 2:23 PM CDT Sexual Orientation Not on file documented as of this encounter Progress Notes * Rosemary Aquino, CHALINO,PAINTER APPRENTICE - 08/13/2018 12:00 AM CST Assessment 1. [...] - Requires Verification,Retrospective By Protocol Authorization; Done: 32Kcj2445 02:29PM Reason For Visit Patient in with [...] Aspirin 81 MG TABS; ONE DAILY; Last Rx:72Cxd3155 Ordered 2. Cyclobenzaprine HCl - 10 MG Oral Tablet; TAKE 1/2 TO 1 TABLET THREE TIMES DAILY; Therapy: 30Sep2010 to (Evaluate:08Bpi0495) Requested for: 07Jul2016; Last Rx:07Jul2016 Ordered 3. Fluticasone Propionate 50 MCG/ACT Nasal Suspension; INSTILL 1 SPRAY DAILY IN EACH NOSTRIL; Therapy: 17Apr2009 to (Evaluate:14Apr2018) Requested for: 16Oct2017; Last Rx:16Oct2017 Ordered 4. Hydrocortisone 2.5 % External Cream; APPLY SPARINGLY TO AFFECTED AREA(S) TWICE DAILY; Therapy: 20Jul2015 to (Evaluate:52Utu7496) Requested for: 17Jul2017; Last Rx:17Jul2017 Ordered 5. Loratadine 10 MG Oral Tablet; TAKE 1 TABLET BY MOUTH DAILY NEEDED; Therapy: 44Nsa8338 to (Evaluate:12Sep2018) Requested for: 17Sep2017; Last Rx:17Sep2017 Ordered 6. Losartan Potassium 100 MG Oral Tablet; TAKE 1 TABLET BY MOUTH ONCE DAILY; Therapy: 93Sct5767 to (Evaluate:10Jul2019) Requested for: 15Jul2018; Last Rx:15Jul2018 Ordered 7. metFORMIN HCl ER 500 MG Oral Tablet Extended Release 24 Hour; TAKE 4 TABLETS( 2000MG) BY MOUTH ONCE DAILY; Therapy: 48Zoo2359 to (Evaluate:18Jul2019) Requested for: 23Jul2018; Last Rx:23Jul2018 Ordered 8. One-Daily Multi Vitamins Oral Tablet; TAKE 1 TABLET DAILY; Therapy: (Recorded:23Jul2012) to Recorded 9. Pyridium 100 MG Oral Tablet; TAKE 1 TABLET 3 TIMES DAILY AFTER MEALS NEEDED; Therapy: 22Hks1087 to (Last Rx:92Zkd9627) Requested for: 14Jun2018 Ordered 10. Simvastatin 20 MG Oral Tablet; TAKE ONE TABLET BY MOUTH DAILY; Therapy: 64Hpr6262 to (Evaluate:10Jul2019) Requested for: 15Jul2018; Last Rx:15Jul2018 Ordered 11. Ventolin HFA 108 (90 Base) MCG/ACT Inhalation Aerosol Solution; INHALE 1 TO 2 PUFFS EVERY 4 TO 6 HOURS NEEDED; Therapy: 06Mar2017 to (Last Rx:30Pmw0302) Requested for: 49Axd7952 Ordered 12. Vitamin D3 1000 UNIT Oral Tablet; takes 2 tablets daily; Therapy: (Recorded:38Kch2182) to Recorded Allergies 1. Ultram TABS Vitals [...] Urinalysis-Color YEL Urinalysis- Appearance CLOUD A Urinalysis-Sp [place] 1.010 1.005-1.030 Urinalysis-pH 5.5 5.0-7.5 Urinalysis-Protein NEG NEGATIVE Urinalysis- Glucose NEG NEGATIVE Urinalysis-Ketone TRACE A NEGATIVE Urinalysis- Bilirub NEG NEGATIVE Urinalysis- Blood 3+ A NEGATIVE Urinalysis-Urobil 0.2 0.2-1.0 Urinalysis-Nitrite NEG NEGATIVE Urinalysis-Leuk 3+ A NEGATIVE Urinalysis-WBC TNTC A 0-4 Urinalysis-RBC TNTC A 0-4 Urinalysis-Epith FEW Urinalysis-Hyal Cast NEG Urinalysis- Bacteria MOD A UrinalysisA Urinalysis-Color YEL Urinalysis- Appearance CLOUD A Urinalysis-Sp [place] 1.010 1.005-1.030 Urinalysis-pH 5.5 5.0-7.5 Urinalysis-Protein NEG NEGATIVE Urinalysis- Glucose NEG NEGATIVE Urinalysis-Ketone TRACE A NEGATIVE Urinalysis- Bilirub NEG NEGATIVE Urinalysis- Blood 3+ A NEGATIVE Urinalysis-Urobil 0.2 0.2-1.0 Urinalysis-Nitrite NEG NEGATIVE Urinalysis-Leuk 3+ A NEGATIVE Urinalysis-WBC TNTC A 0-4 Urinalysis-RBC TNTC A 0-4 Urinalysis-Epith FEW Urinalysis-Hyal Cast NEG Urinalysis- Bacteria MOD A UrinalysisA Signatures Electronically signed by : Rosemary Aquino RN PAINTER APPRENTICE RN,PAINTER APPRENTICE; Aug 13 2018 3:19PM WEB SITE SPECIALIST documented in this encounter Plan of Treatment Not on file documented as of this encounter Visit Diagnoses Not on filedocumented in this encounter Care Teams Manager Staffing Relationship Specialty Start Date End Date Unknown, Provider . HIRAM PEGUERO [id number] PCP - General 03/26/18 04/29/19 Cortney Chandra MD [address] [place] [phone] PCP - General Family Medicine 04/30/19 Cortney Chandra MD [address] [place] [address] PCP Family Medicine 04/29/19 04/29/19 [facility] 03/30/23 Primary Eye Care 03/30/23 documented as of this encounter Additional Source Comments PLEASE NOTE: Replies to this message will not be received.[facility] and [facility]
--- OUTSIDE RECORDS SUMMARY | 2024-05-18 13:43 | XMS_ITS | Encounter Summary ---
Author Organization [employer] [facility] Address [address] [place] [address] Care Team Providers Care Ivf Embryologist Name Role Phone Cortney Chandra MD Primary Care Provider [phone] Reason for Visit * Reason Onset Date Comments Questions 05/06/2024 Encounter Details Date Type Department Care Team (Late st Contact Info) Description 05/06/[address] [facility] [address] [facility] [place], [place] [id number] Jodie Alford LPN Chief Comp: Questions Social History Tobacco Use Types Packs/Day Years Used Date Smoking Tobacco: Never Smokeless Tobacco: Never Alcohol Use Standard Drinks/Week Comments Never 0 (1 standard drink = 0.6 oz pur e alcohol) [facility] Utilities Answer Date Recorded In the [...] often do you attend chur ch or islam services? More than 4 times per year [...] and heating? Not hard at all 08/15/2023 [facility] of Occupat ional Health [...] Telephone Encounter - Cortney Chandra MD - 05/06/2024 4:25 PM CDT I am guessing Sumaya cannot come as I think she is still in [place] with October. Can you confirm? * Telephone Encounter - Jodie Alford LPN - 05/06/2024 4:18 PM CDT ----- Message from Lanie sent at 05/06/2024 4:01 PM CDT ----- Regarding: call back Patient was returning call about her MAW. You were not available at time of call. Please call her back [phone] Thank you documented in this encounter Plan of Treatment Not on file documented as of this encounter Visit Diagnoses Not on filedocumented in this encounter Care Teams Ivf Embryologist Relationship Specialty Start Date End Date Cortney Chandra MD [address] [place] [phone] PCP - General Family Medicine 04/30/19 [facility] 03/30/23 Primary Eye Care 9/25/23 documented as of this encounter Additional Source Comments PLEASE NOTE: Replies to this message will not be received.[facility] and [facility]
--- OUTSIDE RECORDS SUMMARY | 2024-05-18 13:43 | XMS_ITS | Encounter Summary ---
Author Organization [employer] Address [address] [place] [address] Care Team Providers Care Pool Manager Name Role Phone Unknown, Provider Primary Care Provider Unavaila Cortney Gomez MD Unavailable [phone] Cortney Chandra MD Primary Care Provider [phone] Encounter Details Date Type Department Care Team (Late st Contact Info) Description 03/26/2018 Historical Conversion [facility] Family Medicine [address] [place] [address]. [place] [address] Angeles Hartman, CHALINO,SAPPHIRE STYLUS GRINDER [address] [place] [address] Social History Tobacco Use Types Packs/Day Years Used Date Smoking Tobacco: Never Assessed Sex and Gender Information Value Date Recorded Sex Assigned at Not on file Gender Identity Female 01/16/2023 2:23 PM CDT Sexual Orientation Not on file documented as of this encounter Progress Notes * Angeles Hartman, CHALINO,SAPPHIRE STYLUS GRINDER - 03/26/2018 12:00 AM CDT Assessment 1. [...] or if you almost fall.; Status:Complete; Done: 54Obu2294 At your visit today we screened for [...] or seek medical attention immediately.; Status:Complete; Done: 91Zxo4673 Dystrophic nail, Onychomycosis Fungus Culture (Skin.Hair,Nails ONLY); Status:Active; Requested for:03Qfe2075; culture skin source : left thumb nail SocHx: Never smoked Never Smoked: Since tobacco use can have significant health risks, you are helping yourself and others stay healthy by never smoking.; Status:Complete; Done: 54Qmf0768 Reason For Visit Discoloration of finger nails [...] Aspirin 81 MG TABS; ONE DAILY; Last Rx:14Wsc7814 Ordered 2. Cheratussin AC 100-10 MG/5ML Oral Syrup; TAKE 10 ML EVERY 4 TO 6 HOURS NEEDED; Therapy: 05Oct2012 to (Evaluate:52Boo1933); Last Rx:90Mwj6911 Ordered 3. Cyclobenzaprine HCl - 10 MG Oral Tablet; TAKE 1/2 TO 1 TABLET THREE TIMES DAILY; Therapy: 30Sep2010 to (Evaluate:60Snr8116) Requested for: 07Jul2016; Last Rx:07Jul2016 Ordered 4. Fluticasone Propionate 50 MCG/ACT Nasal Suspension; INSTILL 1 SPRAY DAILY IN EACH NOSTRIL; Therapy: 17Apr2009 to (Evaluate:14Apr2018) Requested for: 16Oct2017; Last Rx:16Oct2017 Ordered 5. Hydrocortisone 2.5 % External Cream; APPLY SPARINGLY TO AFFECTED AREA(S) TWICE DAILY; Therapy: 20Jul2015 to (Evaluate:72Dxw3254) Requested for: 17Jul2017; Last Rx:17Jul2017 Ordered 6. Loratadine 10 MG Oral Tablet; TAKE 1 TABLET BY MOUTH DAILY NEEDED; Therapy: 63Yuy2769 to (Evaluate:12Sep2018) Requested for: 17Sep2017; Last Rx:17Sep2017 Ordered 7. Losartan Potassium 100 MG Oral Tablet; TAKE 1 TABLET BY MOUTH ONCE DAILY; Therapy: 70Exr4192 to (Evaluate:12Jul2018) Requested for: 17Jul2017; Last Rx:17Jul2017 Ordered 8. MetFORMIN HCl ER 500 MG Oral Tablet Extended Release 24 Hour; TAKE 4 TABLETS( 2000MG) BY MOUTH ONCE DAILY; Therapy: 56Iio0672 to (Evaluate:12Jul2018) Requested for: 17Jul2017; Last Rx:17Jul2017 Ordered 9. One-Daily Multi Vitamins Oral Tablet; TAKE 1 TABLET DAILY; Therapy: (Recorded:23Jul2012) to Recorded 10. Simvastatin 20 MG Oral Tablet; TAKE ONE TABLET BY MOUTH DAILY; Therapy: 45Rcs5422 to (Evaluate:12Jul2018) Requested for: 17Jul2017; Last Rx:17Jul2017 Ordered 11. Ventolin HFA 108 (90 Base) MCG/ACT Inhalation Aerosol Solution; INHALE 1 TO 2 PUFFS EVERY 4 TO 6 HOURS NEEDED; Therapy: 06Mar2017 to (Last Rx:06Mar2017) Requested for: 06Mar2017 Ordered 12. Vitamin D3 1000 UNIT Oral Tablet; takes 2 tablets daily; Therapy: (Recorded:49Fio4830) to Recorded Allergies 1. Ultram TABS Vitals [...] other 8 fingers are covered with nail luxembourgish but the 2 thumbs show blackdiscoloration under [...] Electronically signed by : Angeles Hartman RN SAPPHIRE STYLUS GRINDER RN,SAPPHIRE STYLUS GRINDER; Mar 26 2018 1:29PM ERECTING CRANE OPERATOR documented in this encounter Plan of Treatment Not on file documented as of this encounter Visit Diagnoses Not on filedocumented in this encounter Care Teams Pool Manager Relationship Specialty Start Date End Date Unknown, Provider . HIRAM PEGUERO [id number] PCP - General 03/26/18 04/29/19 Cortney Chandra MD [address] [place] [address] PCP - General Family Medicine 04/30/19 Cortney Chandra MD [address] [place] [phone] PCP Family Medicine 04/29/19 04/29/19 [facility] 03/30/23 Primary Eye Care 03/30/23 documented as of this encounter Additional Source Comments PLEASE NOTE: Replies to this message will not be received.[facility] and [facility]
--- OUTSIDE RECORDS SUMMARY | 2024-05-18 13:43 | XMS_ITS | Encounter Summary ---
Author Organization [employer] [facility] Address [address] [place] [address] Care Team Providers Care Wax Machine Operator Name Role Phone Cortney Chandra MD Primary Care Provider [phone] Reason for Visit * Reason Onset Date Comments Questions 04/07/2024 Encounter Details Date Type Department Care Team (Late st Contact Info) Description 04/07/2024 Telephone [facility] [address] [place] [address] Cortney Chandra MD [address] [place] [address] Chief Comp: Questions Social History Tobacco Use Types Packs/Day Years Used Date Smoking Tobacco: Never Smokeless Tobacco: Never Alcohol Use Standard Drinks/Week Comments Never 0 (1 standard drink = 0.6 oz pur e alcohol) [facility] Utilities Answer Date Recorded In the past 12 months has [employer], gas, oil, or water [employer] threatened to shut off services in your [...] 08/15/2023 [facility] - Occupational Stress Questionnaire Answer Date [...] PM CDT To: Cortney Chandra Md Nurse Ford Subject: Call Back Fermin from [facility] [place]. Would like a call back at [phone]. Aware you will be in the office on Thursday. Thank you. documented in this encounter Plan of Treatment Not on file documented as of this encounter Visit Diagnoses Not on filedocumented in this encounter Care Teams Wax Machine Operator Relationship Specialty Start Date End Date Cortney Chandra MD [address] [place] [address] PCP - General Family Medicine 04/30/19 [facility] 03/30/23 Primary Eye Care 03/30/23 documented as of this encounter Additional Source Comments PLEASE NOTE: Replies to this message will not be received.[facility] and [facility]
--- OUTSIDE RECORDS SUMMARY | 2024-05-18 13:43 | XMS_ITS | Encounter Summary ---
Author Organization [employer] Address [address] [place] [address] Care Team Providers Care Golf Sales Associate Name Role Phone Unknown, Provider Primary Care Provider Unavaila ble Cortney Chandra MD Unavailable [phone] Cortney Chandra MD Primary Care Provider [phone]- [phone] Encounter Details Date Type Department Care Team (Late st Contact Info) Description 09/28/2018 Historical Conversion [facility] [address] [place] [address] [address] Cortney Chandra MD [address] [place], [place] [...] TABLET THREE TIMES DAILY; Therapy: 30Sep2010 to (Evaluate:60Qgv2676) Requested for: 07Jul2016; Last Rx:07Jul2016 Ordered 3. Fluticasone Propionate 50 MCG/ACT Nasal Suspension; INSTILL 1 SPRAY DAILY IN EACH NOSTRIL; Therapy: 17Apr2009 to (Evaluate:14Apr2018) Requested for: 99Pxn2618; Last Rx:16Oct2017 Ordered 4. Hydrocortisone 2.5 % External Cream; APPLY SPARINGLY TO AFFECTED AREA(S) TWICE DAILY; Therapy: 20Jul2015 to (Evaluate:50Tym4317) Requested for: 10Sep2018; Last Rx:10Sep2018 Ordered 5. Loratadine 10 MG Oral Tablet; TAKE 1 TABLET BY MOUTH DAILY NEEDED; Therapy: 92Mpr8564 to (Last Rx:10Sep2018) Requested for: 10Sep2018 Ordered 6. Losartan Potassium 100 MG Oral Tablet; TAKE 1 TABLET BY MOUTH ONCE DAILY; Therapy: 91Vbw4395 to (Evaluate:10Jul2019) Requested for: 15Jul2018; Last Rx:15Jul2018 Ordered 7. metFORMIN HCl ER 500 MG Oral Tablet Extended Release 24 Hour; TAKE 4 TABLETS( 2000MG) BY MOUTH ONCE DAILY; Therapy: 12Qlu2853 to (Evaluate:18Jul2019) Requested for: 23Jul2018; Last Rx:23Jul2018 Ordered 8. Pyridium 100 MG Oral Tablet; TAKE 1 TABLET 3 TIMES DAILY AFTER MEALS NEEDED; Therapy: 55Knc3867 to (Last Rx:29Bfj4311) Requested for: 19Zxc2884 Ordered 9. Simvastatin 20 MG Oral Tablet; TAKE ONE TABLET BY MOUTH DAILY; Therapy: 71Xnb5360 to (Evaluate:10Jul2019) Requested for: 15Jul2018; Last Rx:15Jul2018 Ordered 10. Ventolin HFA 108 (90 Base) MCG/ACT Inhalation Aerosol Solution; INHALE 1 TO 2 PUFFS EVERY 4 TO 6 HOURS NEEDED; Therapy: 13Cgp5898 to (Last Rx:98Xgi6778) Requested for: 31Pyu1029 Ordered 11. Vision Vitamins Oral Tablet; TAKE 1 TABLET DAILY; Therapy: 28Sep2018 to Recorded 12. Vitamin D3 1000 UNIT Oral Tablet; takes 2 tablets daily; Therapy: (Recorded:75Fmn0653) to Recorded Allergies 1. Ultram TABS Vitals [...] External ears and nose are normal to inspection.\R\m6Jvmcktis membranes clear bilaterally.\R\b0Lips, teeth, and gum are normal, good dentition.\R\m8Lofsvdbivx is normal with no erythema, edema, exudate or lesions. Neck Neck is supple and symmetric. The trachea is midline with no masses.\R\z3Rrmdgr thyroid with no thyromegaly. Pulmonary Lungs are clear to auscultation. Cardiovascular Normal rate and rhythm, normal S1 and S2, no murmurs.\R\r1Zqckmxp pulses are 2+ bilaterally without bruit.\R\j7Tytnfdr pulses are 2+ bilaterally.\R\e1Chayy pulses are 2+ bilaterally.\R\b0No edema and/or varicosities. Chest Normal breasts with no dimpling or skin changes appreciated.\R\b0No breast or axillary massespalpated. Abdomen hemorrhoids noted, not acutely inflamed\R\b0Soft, non-tender with no masses.\R\b0No hepatosplenomegaly.\R\b0No hernia appreciated.\R\t8Uzikhp sphincter tone, no masses. Genitourinary Normal external genitalia and vagina, no lesions appreciated.\R\y8Covkqh meatus with no discharge.\R\b0The bladder is not distended, no tenderness.\R\k3Svdywc is absent.\R\d2Vlhafb is ab sent.\R\g7Tgjkvt/Parametria are normal, no masses or tenderness. Lymphatic No cervical lymphadenopathy.\R\b0No axillary lymphadenopathy.\R\b0No inguinal lymphadenopathy. Musculoskeletal Normal gait and station.\R\c7Wzdcib muscle strength and tone. Skin Skin and subcutaneous tissue are normal without rashes or lesions.\R\o2Kubbim turgor. Neurologic Reflexes are 2+ and symmetric.\R\f9Evxmkk tactile sensation with monofilament testing throughout boot feet. Capillary refill findings were normal bilaterally. Psychiatric Good eye contact and answers questions appropriately.\R\x6Gfghuuuscqu mood and affect. Signatures Electronically signed by : Cortney Chandra M.D.; Oct 11 2018 7:23AM JOB PRESS FEEDER documented in this encounter Plan of Treatment Not on file documented as of this encounter Visit Diagnoses Not on filedocumented in this encounter Care Teams Golf Sales Associate Relationship Specialty Start Date End Date Unknown, Provider . HIRAM PEGUERO [id number] PCP - General 03/26/18 04/29/19 Cortney Chandra MD [address] [employer] [place] [address] PCP - General Family Medicine 04/30/19 Cortney Chandra MD [address] [employer] [place] [phone] PCP Family Medicine 04/29/19 04/29/19 [facility] 03/30/23 Primary Eye Care 03/30/23 documented as of this encounter Additional Source Comments PLEASE NOTE: Replies to this message will not be received.[facility] and [facility]
--- OUTSIDE RECORDS SUMMARY | 2024-05-18 13:43 | XMS_ITS | Encounter Summary ---
Author Organization [employer] Address [address] [place] [address] Care Team Providers Care Group Worker Name Role Phone Cortney Chandra MD Primary Care Provider [phone]- [phone] Reason for Visit * Reason Onset Date Comments Medication Questions 04/13/2024 Encounter Details Date Type Department Care Team ([facility] st Contact Info) Description 04/13/2024 Telephone [facility] [address] [facility] [place], [place] [id number] Daryl Mary RN Dx: Other hyperlipidemia (Primary Dx) Social History Tobacco Use Types Packs/Day Years Used Date Smoking Tobacco: Never Smokeless Tobacco: Never Alcohol Use Standard Drinks/Week Comments Never 0 (1 standard drink = 0.6 oz pur e alcohol) [facility] Utilities Answer Date Recorded In the past 12 months has [facility] electric, gas, oil, or water [employer] threatened to shut off services in your [...] any clubs o r organizations such as yazdanism groups, unions, fraternal or athletic groups, or [...] and heating? Not hard at all 08/15/2023 [facility] of Occupat ional Health - [...] encounter Miscellaneous Notes * Telephone Encounter - Daryl Mary RN - 04/13/2024 11:53 AM CDT Requested Prescriptions Pending Prescriptions Disp Refills simvastatin 20 mg oral tablet 90 Tablet 3 Sig: Take 1 Tablet (20 mg) by mouth in the morning. Call received from pharmacy asking to have medication resent with instructions to take in the evening instead of morning. Prescription sent per previous Epic order. documented in this encounter Plan of Treatment Not on file documented as of this encounter Visit Diagnoses Diagnosis Other hyperlipidemia- Primary documented in this encounter Care Teams Group Worker Relationship Specialty Start Date End Date Cortney Chandra MD [address] [place] [address] PCP - General Family Medicine 04/30/19 [facility] 03/30/23 Primary Eye Care 03/30/23 documented as of this encounter Additional Source Comments PLEASE NOTE: Replies to this message will not be received.[facility] and [facility]
--- OUTSIDE RECORDS SUMMARY | 2024-05-18 13:43 | XMS_ITS | Referral Summary ---
Author Organization [email or web address] Address [address] [place] [address] Care Team Providers Care Fabricating Machine Operator Name Role Phone Cortney Espinosa MD Primary Care Provider [phone]- [phone] Encounters Date Type Department Care Team Description 05/09/2024 Telephone [facility] [id number] [place], [place] [address] Zahraa Larson RN Chief Comp: Medicare Wellness 05/06/2024 Telephone [facility] [id number] [place], [place] [address] Jodie Alford LPN Chief Comp: Questions 05/06/2024 Telephone [facility] [id number] [place], [place] [address] Ely Ragland CMA Chief Comp: Medicare Wellness 04/13/2024 Telephone [facility] [id number] [place] [address] Daryl Mary, LUCIA Dx: Other hyperlipidemia (Primary Dx) 04/07/2024 Telephone [facility] [id number] [place] [address] Cortney Espinosa MD Chief Comp: Questions 04/05/2024 Telephone [facility] [id number] [place] [address] Ingrid George RN Chief Comp: Questions 03/08/2024 Patient Message [facility] [address] [place] [address] Cortney Espinosa MD Dx: Other hyperlipidemia 03/01/2024 Refill [facility] [id number] [place] [address] Cortney Espinosa MD Dx: Essential hypertension (Primary Dx) 02/19/2024 Refill [facility] [id number] [place] [address] Cortney Espinosa MD Dx: Type 2 diabetes mellitus with stage 1 chronic kidney disease, without long-term current use of insulin (HCC) (Primary Dx) from Last 3 Months Allergies Active Allergy Reactions Criticality Noted Date Comments Tramadol Nausea and / or Vomiting Low 04/29/2019 Medications Medication Sig Dispensed Refills Start Date End Date Status albuterol HFA (AKA: PROVENTIL/VENTOLIN) 90 mcg/actuation inhalation HFA Aerosol Inhaler 1-2 Puffs by inhalation route every 4 hours if needed for shortness of breath. Active D-W-F-zinc-sod selenate-copper (AKA: OCUVITE, PROSIGHT) 5,000-60-30 ogpw-pc-glxi oral Tablet Take 1 Tablet by mouth [...] Active fluticasone propionate (FLONASE) 50 mcg/actuation nasal [place], SuspensionIndication s:Allergic rhinitis due to pollen, unspecified [...] 75 mg oral Tablet, Delayed Release (E.C.)Indications:Lalitha mbjean back pain TAKE ONE TABLET BY MOUTH [...] How often do you attend chur or congregational services? More than 4 times per year 08/15/2023 Do you belong to any clubs o r organizations such as confucianism groups, unions, fraternal or athletic groups, or [...] and heating? Not hard at all 08/15/2023 [facility] [place] of Occupat ional Health - Occupational Stress [...] place to sleep or slept in a fdc (including now)? No 08/15/2023 Depression (PHQ-9) Answer [...] Comments Blood Pressure 139/81 08/21/2023 9:47 AM QUALITY CONTROL INDUSTRIAL ENGINEER Pulse 77 08/21/2023 9:47 AM QUALITY CONTROL INDUSTRIAL ENGINEER Temperature 36.9 ??C (98.5 ??F) 08/21/2023 9:47 AM CS T Respiratory Rate 18 08/21/2023 9:47 AM QUALITY CONTROL INDUSTRIAL ENGINEER Oxygen Saturation 96% 08/21/2023 9:47 AM QUALITY CONTROL INDUSTRIAL ENGINEER Inhaled Oxygen Concentration - - Weight 73 kg (161 lb) 08/21/2023 9:47 AM QUALITY CONTROL INDUSTRIAL ENGINEER Height 161.1 cm (5' 3.43) 03/30/2023 10:53 [...] GLYCOSYLATED HEMOGLOBIN, A1C Routine 09/10/2023 9:59 AM QUALITY CONTROL INDUSTRIAL ENGINEER Type 2 diabetes mellitus with stage 1 [...] EYE EXAM - EXTERNAL (12/25/2023) RETINOPATHY Negative [facility] Cortney Espinosa [place] [address], * GLYCOSYLATED HEMOGLOBIN, A1C (09/10/2023 9:59 AM QUALITY CONTROL INDUSTRIAL ENGINEER) Hemoglobin A1c 6.3 <=6.4 % 09/10/2023 10:27 AM QUALITY CONTROL INDUSTRIAL ENGINEER [facility] Estimated Average Glucose 134 mg/dL 09/10/2023 10:27 AM [facility] Blood VENOUS BLOOD / Unknown Venipuncture / Unknown 09/10/2023 9:59 AM QUALITY CONTROL INDUSTRIAL ENGINEER 09/10/2023 9:59 AM QUALITY CONTROL INDUSTRIAL ENGINEER Cortney Espinosa MD LAB CHEMISTRY ORDE RABLES [facility] [address] [place] [address], [place] [phone] * MICROALBUMIN, RANDOM, URINE (03/30/2023 11:28 AM CDT) Microalbumin, Urine <12.0 mg/L 03/30/2023 1:[address] [facility] Creatinine, Urine 71.1 mg/dL 03/30/2023 1:[address] [facility] Microalbumin/Cr eatinine Ratio 03/30/2023 1:[address] [facility] Comment: Unable to calculate ratio due to decreased Microalbumin. Normal: <30 Microalbuminuria: 30-299 Clinical Microalbuminuria: >300 Urine SPOT URINE SPECIMEN / Unknown Non-blood Collection / Unknown 03/30/2023 11:28 AM CDT 03/30/2023 11:28 AM CDT Cortney Espinosa MD LAB URINE ORDERABL ES Performing Organization Address City/[facility]/ZIP Co de Phone Number [facility] [address] [place] [address], [place] [phone] * (ABNORMAL) LIPID PANEL (03/30/2023 11:28 AM CDT) Cholesterol 138 0 - 200 mg/dL 03/30/2023 1:[address] [facility] Triglycerides 86 0 - 150 mg/dL 03/30/2023 1:[address] [facility] Cholesterol, LDL (Calculated) 69 <=100 mg/dL 03/30/2023 1:[address] [facility] Cholesterol, HDL 52(L) 60 - 150 mg/dL 03/30/2023 1:[address] [facility] Cholesterol, vLDL 17 0 - 130 mg/dL 03/30/2023 1:[address] [facility] Fasting Status Yes 03/30/2023 1:[address] [facility] Blood VENOUS BLOOD / Unknown Venipuncture / Unknown 03/30/2023 11:28 AM CDT 03/30/2023 11:28 AM CDT Cortney Espinosa MD LAB CHEMISTRY ZACH GALAN [facility] Organization Address City/State/ZIP Co de Phone Number [facility] [address] [place] [address], * DEXA HIP AND SPINE (02/26/2021 10:38 [...] PM CDT) 03/01/2020 12:0 1 PM CDT [facility] - 03/01/2020 1:05 PM CDT Patient Name: SUMAYA GALVAN Procedure Date: 03/01/2020 Date of : 1950 Attending MD: BILLY ESPINOSA MD Referring MD CORTNEY ESPINOSA Additional Staff Jade ??Min, V Block Saw Operator; Malini ??LUCIA Quiros Patient Profile - [...] without bleeding Diagnosis Code(s)CPT(R) - 2019 copyright [employer]. All Rights Reserved. Diagnosis Code(s)The CPT codes, CCI edits and ICD codes generated are intended as suggestions and were generated based on input data. ??These codes are preliminary and upon sample selector review may be revised to meet current compliance and payer requirements. ??The provider is responsible for the final determination of appropriate codes, and modifiers. Scope Withdrawal Time 00:12:06 Signature Name: Billy Espinosa Signature Statement:This document has been electronically signed. Note Initiated On:03/01/2020 Signature Date:03/01/2020 1:05 PM Cortney Espinosa MD GI PROCEDURES [facility] [address] [place] [address], from Last 3 Months or Most Recently Relevant to Health Maintenance Advance Directives Documents on File Type Date Recorded Patient Quick Service Technician Expl anation Physician Orders for Life-Sustaining Treatment (POLST) 05/18/2023 2:28 PM POLST POLST-S 04/03/2023 2:26 PM Advanced Directives 06/06/2020 1:42 PM CRS [facility] Directive-S 02/17/2005 1:42 PM Care Teams Fabricating Machine Operator Relationship Specialty Start Date End Date Cortney Espinosa MD [address] [place] [address] PCP - General Family Medicine 04/30/19 [facility] 03/30/23 Primary Eye Care 03/30/23 Additional Source Comments PLEASE NOTE: Replies to this message will not be received.[facility] and [facility]
--- OUTSIDE RECORDS SUMMARY | 2024-05-18 13:43 | XMS_ITS | Encounter Summary ---
Author Organization [employer] Address [address] [place] [address] Care Team Providers Care Yard Specialist Name Role Phone Cortney Chandra MD Primary Care Provider [phone]- [phone] Reason for Visit * Reason Comments Refill Request Encounter Details Date Type Department Care Team (Late st Contact Info) Description 03/01/2024 Refill [facility] Medicine [address] [place], [place] [id number] Cortney Chandra MD [address] [place] [address] Dx: Essential hypertension (Primary Dx) Social History Tobacco Use Types Packs/Day Years Used Date Smoking Tobacco: Never Smokeless Tobacco: Never Alcohol Use Standard Drinks/Week Comments Never 0 (1 standard drink = 0.6 oz pur e alcohol) [facility] Utilities Answer Date Recorded In the past 12 months has [facility] [employer], gas, oil, or water [employer] threatened to shut off services in your [...] How often do you attend chur or mu-ism services? More than 4 times per year 08/15/2023 Do you belong to any clubs o r organizations such as tenriism groups, unions, fraternal or athletic groups, or [...] Not hard at all 08/15/2023 [facility] of Occupat ional Health - Occupational Stress [...] hypertension documented in this encounter Care Teams Yard Specialist Relationship Specialty Start Date End Date Cortney Chandra MD [address] [place] [address] PCP - General Family Medicine 04/30/19 [facility] 03/30/23 Primary Eye Care 03/30/23 documented as of this encounter Additional Source Comments PLEASE NOTE: Replies to this message will not be received.[facility] and [facility]
--- OUTSIDE RECORDS SUMMARY | 2024-05-18 13:43 | XMS_ITS | Encounter Summary ---
Author Organization [employer] Address [address] [place] [address] Care Team Providers Care Fountain Clerk Name Role Phone Unknown, Provider Primary Care Provider Unavaila ble Cortney Chandra MD Unavailable [phone] Cortney Chandra MD Primary Care Provider [phone] Encounter Details Date Type Department Care Team (Late st Contact Info) Description 08/30/2018 Historical Conversion [facility] Family Medicine [address] [place] [address]. [place] [address] Cortney Chandra MD [address] [place] [address] Social History Tobacco Use Types Packs/Day Years Used Date Smoking Tobacco: Never Assessed Sex and Gender Information Value Date Recorded Sex Assigned at Not on file Gender Identity Female 01/16/2023 2:23 PM CDT Sexual Orientation Not on file documented as of this encounter Last Filed Vital Signs Vital Sign Reading Time Taken Comments Blood Pressure 124/76 08/30/2018 12:00 AM OPERATIONS AND MAINTENANCE SPECIALIST Pulse - - Temperature - - Respiratory Rate - - Oxygen Saturation - - Inhaled Oxygen Concentration - - Weight 88.5 kg (195 lb 1.7 oz) 08/30/2018 12:00 AM OPERATIONS AND MAINTENANCE SPECIALIST Height 162.5 cm (5' 3.98) 08/30/2018 12:[address] Body Mass Index 33.52 08/30/2018 12:00 AM OPERATIONS AND MAINTENANCE SPECIALIST documented in this encounter Plan of Treatment Not on file documented as of this encounter Visit Diagnoses Not on filedocumented in this encounter Care Teams Fountain Clerk Relationship Specialty Start Date End Date Unknown, Provider . HIRAM PEGUERO [address] PCP - General 03/26/18 04/29/19 Cortney Chandra MD [address] [place] [address] PCP - General Family Medicine 04/30/19 Cortney Chandra MD [address] [place] [place] [address] PCP Family Medicine 04/29/19 04/29/19 [facility] 03/30/23 Primary Eye Care 03/30/23 documented as of this encounter Additional Source Comments PLEASE NOTE: Replies to this message will not be received.[facility] and [facility]
--- OUTSIDE RECORDS SUMMARY | 2024-05-18 13:43 | XMS_ITS | Encounter Summary ---
Author Organization [employer] Address [address] [place] [address] Care Team Providers Care Pick Up Attendant Name Role Phone Unknown, Provider Primary Care Provider Unavaila ble Cortney Chandra MD Unavailable Cortney Chandra MD Primary Care Provider [phone] Encounter Details Date Type Department Care Team (Late st Contact Info) Description 08/30/2018 Historical Conversion [facility] Family Medicine [address] [place] [address]. [place] [address] Cortney Chandra MD [address] [place] [address] Social History Tobacco Use Types [...] Plan Orders Fatigue Drawing Fee; Status:Complete; Done: 07Sfq1506 Reason For Visit Pt. presents today for [...] Aspirin 81 MG TABS; ONE DAILY; Last Rx:[id number] Ordered 2. Cyclobenzaprine HCl - 10 MG Oral Tablet; TAKE 1/2 TO 1 TABLET THREE TIMES DAILY; Therapy: 30Sep2010 to (Evaluate:26Lsx9969) Requested for: 07Jul2016; Last Rx:07Jul2016 Ordered 3. Fluticasone Propionate 50 MCG/ACT Nasal Suspension; INSTILL 1 SPRAY DAILY IN EACH NOSTRIL; Therapy: 17Apr2009 to (Evaluate:14Apr2018) Requested for: 16Oct2017; Last Rx:16Oct2017 Ordered 4. Hydrocortisone 2.5 % External Cream; APPLY SPARINGLY TO AFFECTED AREA(S) TWICE DAILY; Therapy: 20Jul2015 to (Evaluate:34Vrr1785) Requested for: 17Jul2017; Last Rx:17Jul2017 Ordered 5. Loratadine 10 MG Oral Tablet; TAKE 1 TABLET BY MOUTH DAILY NEEDED; Therapy: 68Xbt5894 to (Evaluate:12Sep2018) Requested for: 17Sep2017; Last Rx:17Sep2017 Ordered 6. Losartan Potassium 100 MG Oral Tablet; TAKE 1 TABLET BY MOUTH ONCE DAILY; Therapy: 27Roe4618 to (Evaluate:10Jul2019) Requested for: 15Jul2018; Last Rx:15Jul2018 Ordered 7. metFORMIN HCl ER 500 MG Oral Tablet Extended Release 24 Hour; TAKE 4 TABLETS( 2000MG) BY MOUTH ONCE DAILY; Therapy: 71Yiv5297 to (Evaluate:18Jul2019) Requested for: 23Jul2018; Last Rx:23Jul2018 Ordered 8. One-Daily Multi Vitamins Oral Tablet; TAKE 1 TABLET DAILY; Therapy: (Recorded:23Jul2012) to Recorded 9. Pyridium 100 MG Oral Tablet; TAKE 1 TABLET 3 TIMES DAILY AFTER MEALS NEEDED; Therapy: 85Rfc8239 to (Last Rx:13Asg0033) Requested for: 14Jun2018 Ordered 10. Simvastatin 20 MG Oral Tablet; TAKE ONE TABLET BY MOUTH DAILY; Therapy: 99Sfb9338 to (Evaluate:10Jul2019) Requested for: 15Jul2018; Last Rx:15Jul2018 Ordered 11. Ventolin HFA 108 (90 Base) MCG/ACT Inhalation Aerosol Solution; INHALE 1 TO 2 PUFFS EVERY 4 TO 6 HOURS NEEDED; Therapy: 06Mar2017 to (Last Rx:43Mpg2064) Requested for: 84Nkk4587 Ordered 12. Vitamin D3 1000 UNIT Oral Tablet; takes 2 tablets daily; Therapy: (Recorded:73Gal5560) to Recorded Allergies 1. Ultram TABS Vitals [...] Cortney Chandra M.D.; Sep 12 2018 4:16PM COMPENSATION CONSULTING MANAGER documented in this encounter Plan of Treatment Not on file documented as of this encounter Visit Diagnoses Not on filedocumented in this encounter Care Teams Pick Up Attendant Relationship Specialty Start Date End Date Unknown, Provider . [facility] [address] PCP - General 03/26/18 04/29/19 Cortney Chandra MD [address] [place] [address] PCP - General Family Medicine 04/30/19 Cortney Chandra MD [address] [place] [address] PCP Family Medicine 04/29/19 04/29/19 [facility] 03/30/23 Primary Eye Care 03/30/23 documented as of this encounter Additional Source Comments PLEASE NOTE: Replies to this message will not be received.[facility]
--- OUTSIDE RECORDS SUMMARY | 2024-05-18 13:44 | XMS_ITS | Continuity of Care Document ---
Author Organization [facility] Address [address] [place] [address] Phone Care Team Providers Care Special Needs Babysitter Name Role Phone Farooq LOZADA, PhD, Joaquim [...] ent Visit,New, Mod [facility] , [address], [place], [place], [id number], tel:[phone] [facility] Radiculopat hy, lumbar region Farooq March. [facility], [address], [place], [address], [place]. tel:[phone] Referring Provider: Joaquim Trivedi, [facility] [address], [place], [address]. tel:[phone] Family History Family Member Type Diagnosis Age At Onset Sister Problem (finding) Diabetes mellitus Payers Payer name Insurance type Covered republican ID Authoriza radha(s) [employer] [facility] CI [id number] Social History Type Description Quantity Date [...]
--- OUTSIDE RECORDS SUMMARY | 2024-05-18 13:44 | XMS_ITS | Encounter Summary ---
Author Organization [employer] Address [address] [place] [address] Care Team Providers Care Green Chain Operator Name Role Phone Unknown, Provider Primary Care Provider UnavailCortney Dye MD Unavailable [phone] Cortney Chandra MD Primary Care Provider [phone] Encounter Details Date Type Department Care Team (Late st Contact Info) Description 12/25/2016 Historical Conversion [facility] Family Medicine [address] [place] [address]. [place] [address] Social History Tobacco Use Types Packs/Day Years [...] Body Mass Index 31.77 08/19/2016 12:00 AM CRANK HAND documented in this encounter Plan of Treatment Not on file documented as of this encounter Visit Diagnoses Not on filedocumented in this encounter Care Teams Green Chain Operator Relationship Specialty Start Date End Date Unknown, [place] [address] PCP - General 03/26/18 04/29/19 Cortney Chandra MD [address] [place] [address] PCP - General Family Medicine 04/30/19 Cortney Chandra MD [address] [place] [address] PCP Family Medicine 04/29/19 04/29/19 [facility] 03/30/23 Primary Eye Care 03/30/23 documented as of this encounter Additional Source Comments PLEASE NOTE: Replies to this message will not be received.[facility] and [facility]
--- OUTSIDE RECORDS SUMMARY | 2024-05-18 13:44 | XMS_ITS | Encounter Summary ---
Author Organization [employer] Address [address] [place] [address] Care Team Providers Care Horse Exerciser Name Role Phone Unknown, Provider Primary Care Provider UnavailCortney Dye MD Unavailable [phone] Cortney Chandra MD Primary Care Provider [phone] Encounter Details Date Type Department Care Team (Late st Contact Info) Description 09/03/2017 Historical Conversion [facility] Family Medicine [address] [facility] [place] [address] Rosemary Aquino APRN,REFUND CLERK [address] [place] [id number] Social History Tobacco Use Types Packs/Day Years Used Date Smoking Tobacco: Never Assessed Sex and Gender Information Value Date Recorded Sex Assigned at Not on file Gender Identity Female 01/16/2023 2:23 PM CDT Sexual Orientation Not on file documented as of this encounter Progress Notes * Rosemary Aquino, CHALINO,REFUND CLERK - 09/03/2017 12:00 AM CST Assessment 1. [...] TO 6 HOURS NEEDED; Therapy: 05Oct2012 to (Evaluate:67Fae8718); Last Rx:08Aug2016 Ordered 3. Cyclobenzaprine HCl - 10 MG Oral Tablet; TAKE 1/2 TO 1 TABLET THREE TIMES DAILY; Therapy: 30Sep2010 to (Evaluate:25Pcb6120) Requested for: 07Jul2016; Last Rx:07Jul2016 Ordered 4. Fluticasone Propionate 50 MCG/ACT Nasal Suspension; INSTILL 1 SPRAY DAILY IN EACH NOSTRIL; Therapy: 17Apr2009 to (Evaluate:15Dec2016) Requested for: 32Ktx1903; Last Rx:67Bez2397 Ordered 5. Hydrocortisone 2.5 % External Cream; APPLY SPARINGLY TO AFFECTED AREA(S) TWICE DAILY; Therapy: 20Jul2015 to (Evaluate:47Pum9748) Requested for: 17Jul2017; Last Rx:17Jul2017 Ordered 6. Loratadine 10 MG Oral Tablet; TAKE 1 TABLET BY MOUTH DAILY NEEDED; Therapy: 98Rum0487 to (Evaluate:12Sep2017) Requested for: 17Sep2016; Last Rx:17Sep2016 Ordered 7. Losartan Potassium 100 MG Oral Tablet; TAKE 1 TABLET BY MOUTH ONCE DAILY; Therapy: 35Yel0795 to (Evaluate:12Jul2018) Requested for: 17Jul2017; Last Rx:17Jul2017 Ordered 8. MetFORMIN HCl ER 500 MG Oral Tablet Extended Release 24 Hour; TAKE 4 TABLETS( 2000MG) BY MOUTH ONCE DAILY; Therapy: 05Idr7695 to (Evaluate:12Jul2018) Requested for: 17Jul2017; Last Rx:17Jul2017 Ordered 9. One-Daily Multi Vitamins Oral Tablet; TAKE 1 TABLET DAILY; Therapy: (Recorded:23Jul2012) to Recorded 10. Simvastatin 20 MG Oral Tablet; TAKE ONE TABLET BY MOUTH DAILY; Therapy: 57Dbp4686 to (Evaluate:12Jul2018) Requested for: 17Jul2017; Last Rx:17Jul2017 [...] Electronically signed by : Rosemary Aquino RN REFUND CLERK RN,REFUND CLERK; Sep 03 2017 5:41PM CELLULAR PHONE REPAIRER documented in this encounter Plan of Treatment Not on file documented as of this encounter Visit Diagnoses Not on filedocumented in this encounter Care Teams Horse Exerciser Relationship Specialty Start Date End Date Unknown, Provider . HIRAM PEGUERO [address] PCP - General 03/26/18 04/29/19 Cortney Chandra MD [address] [place] [address] PCP - General Family Medicine 04/30/19 Cortney Chandra MD [address] [place] [address] PCP Family Medicine 04/29/19 04/29/19 [facility] 03/30/23 Primary Eye Care 03/30/23 documented as of this encounter Additional Source Comments PLEASE NOTE: Replies to this message will not be received.[facility] and [facility]
--- OUTSIDE RECORDS SUMMARY | 2024-05-18 13:44 | XMS_ITS | Encounter Summary ---
Author Organization [employer] Address [address] [place] [address] Care Team Providers Care Superintendent Automotive Name Role Phone Unknown, Provider Primary Care Provider Unavaila ble Cortney Chandra MD Unavailable [phone] Cortney Chandra MD Primary Care Provider [phone] Encounter Details Date Type Department Care Team (Late st Contact Info) Description 08/19/2016 Historical Conversion [facility] Family Medicine [address] [place] [address] [place] [address] Cortney Chandra MD [address] [place] [address] Social History Tobacco Use Types Packs/Day Years Used Date Smoking Tobacco: Never Assessed Sex and Gender Information Value Date Recorded Sex Assigned at Not on file Gender Identity Female 01/16/2023 2:23 PM CDT Sexual Orientation Not on file documented as of this encounter Last Filed Vital Signs Vital Sign Reading Time Taken Comments Blood Pressure 132/78 08/19/2016 12:00 AM BUSINESS INTELLIGENCE REPORTING ANALYST Pulse - - Temperature - - Respiratory Rate - - Oxygen Saturation - - Inhaled Oxygen Concentration - - Weight 86.2 kg (190 lb 0.6 oz) 08/19/2016 12:00 AM BUSINESS INTELLIGENCE REPORTING ANALYST Height 163 cm (5' 4.17) 08/19/2016 12:00 AM BUSINESS INTELLIGENCE REPORTING ANALYST Body Mass Index 32.44 08/19/2016 12:00 AM BUSINESS INTELLIGENCE REPORTING ANALYST documented in this encounter Progress Notes [...] back pain, mostly on left side. Derick PHYSICIAN ASST History of Present Illness Octavio developed left [...] TO 6 HOURS NEEDED; Therapy: 05Oct2012 to (Evaluate:04Pod1491); Last Rx:80Stg1349 Ordered 3. Cyclobenzaprine HCl - 10 MG Oral Tablet; TAKE 1/2 TO 1 TABLET THREE TIMES DAILY; Therapy: 30Sep2010 to (Evaluate:79Znq7116) Requested for: 07Jul2016; Last Rx:07Jul2016 Ordered 4. Fluticasone Propionate 50 MCG/ACT Nasal Suspension; INSTILL 1 SPRAY DAILY IN EACH NOSTRIL; Therapy: 17Apr2009 to (Evaluate:15Dec2016) Requested for: 57Hll7533; Last Rx:49Dud2869 Ordered 5. Hydrocortisone 2.5 % External Cream; APPLY SPARINGLY TO AFFECTED AREA(S) TWICE DAILY; Therapy: 20Jul2015 to (Evaluate:28Jul2016) Requested for: 67Ugo9129; Last Rx:63Scy7118 Ordered 6. Loratadine 10 MG Oral Tablet; TAKE 1 TABLET BY MOUTH DAILY NEEDED; Therapy: 33Sua3744 to (Evaluate:12Sep2017) Requested for: 17Sep2016; Last Rx:17Sep2016 Ordered 7. Losartan Potassium 100 MG Oral Tablet; TAKE 1 TABLET BY MOUTH ONCE DAILY; Therapy: 61Oed1751 to (Evaluate:18Jul2017) Requested for: 23Jul2016; Last Rx:23Jul2016 Ordered 8. MetFORMIN HCl ER 500 MG Oral Tablet Extended Release 24 Hour; TAKE 4 TABLETS( 2000MG) BY MOUTH ONCE DAILY; Therapy: 34Ljn5698 to (Evaluate:25Jul2017) Requested for: 30Jul2016; Last Rx:30Jul2016 Ordered 9. One-Daily Multi Vitamins Oral Tablet; TAKE 1 TABLET DAILY; Therapy: (Recorded:23Jul2012) to Recorded 10. Simvastatin 20 MG Oral Tablet; TAKE ONE TABLET BY MOUTH DAILY; Therapy: 26Des0281 to (Evaluate:18Jul2017) Requested for: 23Jul2016; Last Rx:23Jul2016 Ordered 11. Vitamin D3 1000 UNIT Oral Tablet; takes 2 tablets daily; Therapy: (Recorded:07Jsw2846) to Recorded Allergies 1. Ultram TABS Vitals [...] Cortney Chandra M.D.; Dec 18 2016 8:57PM BUSINESS INTELLIGENCE REPORTING ANALYST documented in this encounter H&P Notes * [...] Metabolic Panel; Status:Resulted - Requires Verification; Done: 95Xvr8576 10:48AM Controlled diabetes mellitus Hemoglobin A1C; Status:Resulted - Requires Verification; Done: 13Lzr1472 10:48AM Lipid Panel; Status:Resulted - Requires Verification; Done: 06Llj2114 10:48AM Microalbumin (Random); Status:Resulted - Requires Verification; Done: 27Nkp1187 10:48AM Fatigue, Screening for thyroid disorder TSH; Status:Resulted - Requires Verification; Done: 15Brg2217 10:48AM Health Maintenance Prevnar 13 Intramuscular Suspension Visit for screening mammogram Mammo Screen Bilat - 2109; Status:Resulted - Requires Verification; Done: 99Yuy6362 11:12AM Vitamin D deficiency Drawing Fee; Status:Complete; Done: 78Kpm9221 Vitamin D Total [facility]; Status:Resulted - Requires Verification; Done: 47Crk9715 10:48AM Reason For Visit Pt. presents today [...] Aspirin 81 MG TABS; ONE DAILY; Last Rx:60Aup4565 Ordered 2. Cheratussin AC 100-10 MG/5ML Oral Syrup; TAKE 10 ML EVERY 4 TO 6 HOURS NEEDED; Therapy: 05Oct2012 to (Evaluate:61Pra3795); Last Rx:00Pyt9667 Ordered 3. Cyclobenzaprine HCl - 10 MG Oral Tablet; TAKE 1/2 TO 1 TABLET THREE TIMES DAILY; Therapy: 30Sep2010 to (Evaluate:16Mna2673) Requested for: 07Jul2016; Last Rx:07Jul2016 Ordered 4. Fluticasone Propionate 50 MCG/ACT Nasal Suspension; INSTILL 1 SPRAY DAILY IN EACH NOSTRIL; Therapy: 17Apr2009 to (Evaluate:15Dec2016) Requested for: 44Otc0490; Last Rx:01Zug0090 Ordered 5. Hydrocortisone 2.5 % External Cream; APPLY SPARINGLY TO AFFECTED AREA(S) TWICE DAILY; Therapy: 20Jul2015 to (Evaluate:28Jul2016) Requested for: 23Iqh8038; Last Rx:97Wju4900 Ordered 6. Loratadine 10 MG Oral Tablet; TAKE 1 TABLET BY MOUTH DAILY NEEDED; Therapy: 97Wup6425 to (Evaluate:70Svr7677) Requested for: 57Jjp9363; Last Rx:93Wwl8533 Ordered 7. Losartan Potassium 100 MG Oral Tablet; TAKE 1 TABLET BY MOUTH ONCE DAILY; Therapy: 15Dsu0859 to (Evaluate:18Jul2017) Requested for: 23Jul2016; Last Rx:23Jul2016 Ordered 8. MetFORMIN HCl ER 500 MG Oral Tablet Extended Release 24 Hour; TAKE 4 TABLETS( 2000MG) BY MOUTH ONCE DAILY; Therapy: 50Wzc1180 to (Evaluate:25Jul2017) Requested for: 30Jul2016; Last Rx:30Jul2016 Ordered 9. One-Daily Multi Vitamins Oral Tablet; TAKE 1 TABLET DAILY; Therapy: (Recorded:23Jul2012) to Recorded 10. Simvastatin 20 MG Oral Tablet; TAKE ONE TABLET BY MOUTH DAILY; Therapy: 93Ifz1256 to (Evaluate:18Jul2017) Requested for: 23Jul2016; Last Rx:23Jul2016 [...] affect. Results/Data Mammo Screen Bilat - 2109 82Hlo0872 11:12AM Cortney Chandra Test Name Result Flag [...] Author: MAME ISRAEL M.D. Basic Metabolic Panel 48Xny4314 10:48AM Cortney Chandra Test Name Result Flag [...] Dioxide 21 mmol/L L 22-30 Hemoglobin A1C 77Oli2809 10:48AM Cortney Chandra Test Name Result Flag Reference Hemoglobin A1C 7.5 % H <5.7 Prediabetes 5.7% - 6.4% Diabetes >=6.5% Please note reference change as of 2015.. Estimated Average Glucose 169 mg/dl The eAG (estimated Average Glucose) is recommended by the [place] [employer] to assist with patient education during glucose monitoring. Lipid Panel 73Prx6744 10:48AM Cortney Chandra Test Name Result Flag Reference Cholesterol 166 mg/dl < 200 Triglycerides 144 mg/dl < 150 HDL 56 mg/dl 40 or > LDL - Calculated 81 mg/dl < 130 *L/H Ratio 1.5 1.0-4.7 TSH 83Xjt6398 10:48AM Cortney Chandra Test Name Result Flag Reference TSH 0.804 uIU/ml 0.30-4.70 Vitamin D Total [facility] 45Rdu9020 10:48AM Cortney Chandra Test Name Result Flag Reference Vitamin D Total - [facility] 43.1 ng/ml 30-100 Deficiency <10ng/mL Insufficiency 10-29 ng/mL Sufficiency 30-100 ng/mL Possible Toxicity >100 ng/mL Microalbumin (Random) 55Bql9145 10:48AM Cortney Chandra Test Name Result Flag Reference Microalbumin, Raw 6.9 mg/L < 20 Microalbumin/Creat Ratio 4.4 ug/mg < 30 ug Microalb/mg UA Creat Creat, Urine 155.4 mg/dl Signatures Electronically signed by : Cortney Chandra M.D.; Aug 26 2016 8:22AM BUSINESS INTELLIGENCE REPORTING ANALYST documented in this encounter Plan of Treatment Not on file documented as of this encounter Visit Diagnoses Not on filedocumented in this encounter Care Teams Superintendent Automotive Relationship Specialty Start Date End Date Unknown, Provider . HIRAM PEGUERO [address] PCP - General 03/26/18 04/29/19 Cortney Chandra MD [address] [place] [address] PCP - General Family Medicine 04/30/19 Cortney Chandra MD [address] [place] [place] [address] [place] [address] PCP Family Medicine 04/29/19 04/29/19 [facility] 03/30/23 Primary Eye Care 03/30/23 documented as of this encounter Additional Source Comments PLEASE NOTE: Replies to this message will not be received.[facility] and [facility]
--- OUTSIDE RECORDS SUMMARY | 2024-05-18 13:44 | XMS_ITS | Encounter Summary ---
Author Organization [employer] Address [address] [place] [address] Care Team Providers Care Vacuum Caster Name Role Phone Unknown, Provider Primary Care Provider Unavaila ble Cortney Chandra MD Unavailable [phone] Cortney Chandra MD Primary Care Provider [phone] Encounter Details Date Type Department Care Team (Late st Contact Info) Description 07/20/[address] [facility] Family Medicine [address] [place] [address]. [place] [address] Cortney Chandra MD [address] [place] [address] Social History Tobacco Use Types Packs/Day Years Used Date Smoking Tobacco: Never Assessed Sex and Gender Information Value Date Recorded Sex Assigned at Not on file Gender Identity Female 01/16/2023 2:23 PM CDT Sexual Orientation Not on file documented as of this encounter Last Filed Vital Signs Vital Sign Reading Time Taken Comments Blood Pressure 132/76 07/20/2015 12:00 AM LOCAL COMPANY INTERMODAL TRUCK DRIVER Pulse - - Temperature - - Respiratory Rate - - Oxygen Saturation - - Inhaled Oxygen Concentration - - Weight 87.1 kg (192 lb 0.3 oz) 07/20/2015 12:00 AM LOCAL COMPANY INTERMODAL TRUCK DRIVER Height 164 cm (5' 4.57) 07/20/2015 12:00 AM LOCAL COMPANY INTERMODAL TRUCK DRIVER Body Mass Index 32.79 07/20/2015 12:00 AM LOCAL COMPANY INTERMODAL TRUCK DRIVER documented in this encounter Plan of Treatment Not on file documented as of this encounter Visit Diagnoses Not on filedocumented in this encounter Care Teams Vacuum Caster Relationship Specialty Start Date End Date Unknown, Provider . HIRAM PEGUERO [address] PCP - General 03/26/18 04/29/19 Cortney Chandra MD [address] [place] [address] PCP - General Family Medicine 04/30/19 Cortney Chandra MD [address] [place] [address] PCP Family Medicine 04/29/19 04/29/19 [facility] 03/30/23 Primary Eye Care 03/30/23 documented as of this encounter Additional Source Comments PLEASE NOTE: Replies to this message will not be received.[facility] and [facility]
--- OUTSIDE RECORDS SUMMARY | 2024-05-18 13:44 | XMS_ITS | Encounter Summary ---
Author Organization [employer] Address [address] [place] [address] Care Team Providers Care Roofer Gypsum Name Role Phone Unknown, Provider Primary Care Provider Unavaila ble Cortney Chandra MD Unavailable [phone] Cortney Chandra MD Primary Care Provider [phone] Encounter Details Date Type Department Care Team (Late st Contact Info) Description 08/10/2015 Historical Conversion [facility] Family Medicine [address] [place] [address] [place] [address] Cortney Chandra MD [address] [place] [address] Social History Tobacco Use Types [...] for c/o pain/tingling in Rt. arm. CSwanson SPONSORSHIP MANAGER Past Medical History 1. Allergic rhinitis due [...] 81 MG Oral Tablet; ONE DAILY; Last Rx:32Ito5731 Ordered 2. Calcium 600/Vitamin D3 TABS; 1 [...] DAILY IN EACH NOSTRIL; Therapy: 17Apr2009 to (Evaluate:79Qvk4057) Requested for: 09May2014; Last Rx:09May2014 Ordered 6. Hydrocortisone 2.5 % External Cream; APPLY SPARINGLY TO AFFECTED AREA(S) TWICE DAILY; Therapy: 20Jul2015 to (Last Rx:20Jul2015) Requested for: 20Jul2015 Ordered 7. Loratadine 10 MG Oral Tablet; TAKE 1 TABLET BY MOUTH DAILY NEEDED; Therapy: 98Tgo2855 to (Evaluate:06Wso2269) Requested for: 13Qsq6983; Last Rx:33Rte7466 Ordered 8. Losartan Potassium 100 MG Oral Tablet; TAKE 1 TABLET BY MOUTH ONCE DAILY; Therapy: 44Soa8978 to (Evaluate:14Jul2016) Requested for: 20Jul2015; Last Rx:20Jul2015 Ordered 9. MetFORMIN HCl ER 500 MG Oral Tablet Extended Release 24 Hour; TAKE 4 TABLETS( 2000MG) BY MOUTH ONCE DAILY; Therapy: 87Hzc5304 to (Evaluate:14Jul2016) Requested for: 20Jul2015; Last Rx:20Jul2015 [...] TAKE ONE TABLET BY MOUTH DAILY; Therapy: 85Yjg7763 to (Evaluate:14Jul2016) Requested for: 20Jul2015; Last Rx:20Jul2015 [...] Vital Signs [Data Includes: Current Encounter] Recorded: 79Vna7200 02:56PM Blood Pressure 136 / 92, RUE, [...] traction would benefit Status: Active Requested for: 49Vvl1000 Care Summary provided. : Yes With: : [facility] PT/OT DEPT Related: : No Encounter: : No Phone Number to Contact Patient: : home [phone] to Provider, Practice or Agency: : PT at [facility] 2. PredniSONE 20 MG Oral Tablet; TAKE 2 TABLET DAILY Signatures Electronically signed by : Cortney Chandra M.D.; Aug 22 2015 9:54AM BRAND MARKETING MANAGER documented in this encounter Plan of Treatment Not on file documented as of this encounter Visit Diagnoses Not on filedocumented in this encounter Care Teams Roofer Gypsum Relationship Specialty Start Date End Date Unknown, Provider . HIRAM PEGUERO [address] PCP - General 03/26/18 04/29/19 Cortney Chandra MD [address] [place] [address] PCP - General Family Medicine 04/30/19 Cortney Chandra MD [address] [place] [address] PCP Family Medicine 04/29/19 04/29/19 [facility] 03/30/23 Primary Eye Care 03/30/23 documented as of this encounter Additional Source Comments PLEASE NOTE: Replies to this message will not be received.[facility] and [facility]
--- OUTSIDE RECORDS SUMMARY | 2024-05-18 13:44 | XMS_ITS | Encounter Summary ---
Author Organization [employer] Address [address] [place] [address] Care Team Providers Care Dozer Operator Name Role Phone Unknown, Provider Primary Care Provider Unavaila ble Cortney Chandra MD Unavailable [phone] Cortney Chandra MD Primary Care Provider [phone] Encounter Details Date Type Department Care Team (Late st Contact Info) Description 07/20/2015 Historical Conversion [facility] Family Medicine [address] [place] [address] [place] [address] Cortney Chandra MD [address] [place] [address] Social History Tobacco Use Types [...] 81 MG Oral Tablet; ONE DAILY; Last Rx:53Vpu9443 Ordered 2. Calcium 600/Vitamin D3 TABS; 1 [...] DAILY IN EACH NOSTRIL; Therapy: 17Apr2009 to (Evaluate:23Vte1067) Requested for: 09May2014; Last Rx:09May2014 Ordered 6. Loratadine 10 MG Oral Tablet; TAKE 1 TABLET BY MOUTH DAILY NEEDED; Therapy: 38Ijd9651 to (Evaluate:58Syr7383) Requested for: 29Pys8002; Last Rx:84Wfm8171 Ordered 7. Losartan Potassium 100 MG Oral Tablet; TAKE 1 TABLET BY MOUTH ONCE DAILY; Therapy: 23Wzw5976 to (Evaluate:04Syc7496) Requested for: 13Feb2015; Last Rx:21Hhr1022 Ordered 8. MetFORMIN HCl ER 500 MG Oral Tablet Extended Release 24 Hour; TAKE 4 TABLETS( 2000MG) BY MOUTH ONCE DAILY; Therapy: 48Xgr5565 to (Evaluate:43Hvz7359) Requested for: 13Feb2015; Last Rx:13Feb2015 Ordered 9. One-Daily Multi Vitamins Oral Tablet; TAKE 1 TABLET DAILY; Therapy: (Recorded:23Jul2012) to Recorded 10. ProAir HFA 108 (90 Base) MCG/ACT Inhalation Aerosol Solution; INHALE 2 PUFFS EVERY 4 HOURS NEEDED FOR COUGHAND WHEEZE; Therapy: 26May2008 to (Last Rx:14May2015) Requested for: 14May2015 Ordered 11. Simvastatin 20 MG Oral Tablet; TAKE ONE TABLET BY MOUTH DAILY; Therapy: 45Gmw2549 to (Evaluate:11Jul2016) Requested for: 17Jul2015; Last Rx:17Jul2015 [...] Never smoked Review of Systems Female Complete [facility]: Constitutional: no fever and no chills. [...] is a 65-year-old recently retired employee from [employer] that is here for her first [...] Cortney Chandra M.D.; Aug 07 2015 1:15PM MINERAL ORE PROCESSING LABOURER documented in this encounter Plan of Treatment Not on file documented as of this encounter Visit Diagnoses Not on filedocumented in this encounter Care Teams Dozer Operator Relationship Specialty Start Date End Date Unknown, Provider . HIRAM PEGUERO [address] PCP - General 03/26/18 04/29/19 Cortney Chandra MD [address] [place] [address] PCP - General Family Medicine 04/30/19 Cortney Chandra MD [address] [place] [address] PCP Family Medicine 04/29/19 04/29/19 [facility] 03/30/23 Primary Eye Care 03/30/23 documented as of this encounter Additional Source Comments PLEASE NOTE: Replies to this message will not be received.[facility] and [facility]
--- OUTSIDE RECORDS SUMMARY | 2024-05-18 13:44 | XMS_ITS | Encounter Summary ---
Author Organization [facility] Address [address] [place] [address] Care Team Providers Care Mechanical Drafter Name Role Phone Unknown, Provider Primary Care Provider Unavaila ble Cortney Chandra MD Unavailable [phone] Cortney Chandra MD Primary Care Provider [phone] Encounter Details Date Type Department Care Team (Late st Contact Info) Description 09/25/2017 Historical Conversion [facility] Family Medicine [address] [place] [address]. [place] [address] Cortney Chandra MD [address] [place] [address] Social History Tobacco Use Types [...] For Visit [facility] History of Present Illness Sumaya is here for annual HCM exam along with Medicare wellness. She has a hx of type 2 DM, hyperlipidemia and HTN. She is doing well. She notes some join and back discomfort off and on but does notwant to do anything about it. She is still working casual as an [employer] and still enjoys this. Her asthma and [...] Aspirin 81 MG TABS; ONE DAILY; Last Rx:18Ixp1018 Ordered 2. Cheratussin AC 100-10 MG/5ML Oral Syrup; TAKE 10 ML EVERY 4 TO 6 HOURS NEEDED; Therapy: 05Oct2012 to (Evaluate:95Qof9675); Last Rx:32Rjt2019 Ordered 3. Cyclobenzaprine HCl - 10 MG Oral Tablet; TAKE 1/2 TO 1 TABLET THREE TIMES DAILY; Therapy: 30Sep2010 to (Evaluate:67Orv5350) Requested for: 07Jul2016; Last Rx:07Jul2016 Ordered 4. Fluticasone Propionate 50 MCG/ACT Nasal Suspension; INSTILL 1 SPRAY DAILY IN EACH NOSTRIL; Therapy: 17Apr2009 to (Evaluate:15Dec2016) Requested for: 37Uga0736; Last Rx:23Ipl5828 Ordered 5. Hydrocortisone 2.5 % External Cream; APPLY SPARINGLY TO AFFECTED AREA(S) TWICE DAILY; Therapy: 20Jul2015 to (Evaluate:39Hxz3605) Requested for: 17Jul2017; Last Rx:17Jul2017 Ordered 6. Loratadine 10 MG Oral Tablet; TAKE 1 TABLET BY MOUTH DAILY NEEDED; Therapy: 60Vri2511 to (Evaluate:12Sep2018) Requested for: 17Sep2017; Last Rx:17Sep2017 Ordered 7. Losartan Potassium 100 MG Oral Tablet; TAKE 1 TABLET BY MOUTH ONCE DAILY; Therapy: 06Kfz2170 to (Evaluate:12Jul2018) Requested for: 17Jul2017; Last Rx:17Jul2017 Ordered 8. MetFORMIN HCl ER 500 MG Oral Tablet Extended Release 24 Hour; TAKE 4 TABLETS( 2000MG) BY MOUTH ONCE DAILY; Therapy: 35Fgr7261 to (Evaluate:12Jul2018) Requested for: 17Jul2017; Last Rx:17Jul2017 Ordered 9. One-Daily Multi Vitamins Oral Tablet; TAKE 1 TABLET DAILY; Therapy: (Recorded:23Jul2012) to Recorded 10. Simvastatin 20 MG Oral Tablet; TAKE ONE TABLET BY MOUTH DAILY; Therapy: 48Epw8878 to (Evaluate:12Jul2018) Requested for: 17Jul2017; Last Rx:17Jul2017 Ordered 11. Ventolin HFA 108 (90 Base) MCG/ACT Inhalation Aerosol Solution; INHALE 1 TO 2 PUFFS EVERY 4 TO 6 HOURS NEEDED; Therapy: 63Xwe0387 to (Last Rx:86Qmf2631) Requested for: 22Erl1241 Ordered 12. Vitamin D3 1000 UNIT Oral Tablet; takes 2 tablets daily; Therapy: (Recorded:72Oyn0525) to Recorded Allergies 1. Ultram TABS Vitals [...] Cortney Chandra M.D.; Oct 05 2017 8:00AM PARTS REMOVER documented in this encounter Plan of Treatment Not on file documented as of this encounter Visit Diagnoses Not on filedocumented in this encounter Care Teams Mechanical Drafter Relationship Specialty Start Date End Date Unknown, Provider . HIRAM PEGUERO [id number] PCP - General 03/26/18 04/29/19 Cortney Chandra MD [address] [place] [address] PCP - General Family Medicine 04/30/19 Cortney Chandra MD [address] [place] [address] PCP Family Medicine 04/29/19 04/29/19 [facility] 03/30/23 Primary Eye Care 03/30/23 documented as of this encounter Additional Source Comments PLEASE NOTE: Replies to this message will not be received.[facility] and [facility]
--- OUTSIDE RECORDS SUMMARY | 2024-05-18 13:44 | XMS_ITS | Encounter Summary ---
Author Organization [employer] Address [address] [place] [address] Care Team Providers Care Director Of Officiating Name Role Phone Unknown, Provider Primary Care Provider Unavaila ble Cortney Chandra MD Unavailable [phone] Cortney Chandra MD Primary Care Provider [phone] Encounter Details Date Type Department Care Team (Late st Contact Info) Description 09/01/2014 Historical Conversion [facility] [address] [place] [address]. [place] [address] Cortney Chandra MD [address] [place] [address] Social History Tobacco Use Types Packs/Day Years Used Date Smoking Tobacco: Never Assessed Sex and Gender Information Value Date Recorded Sex Assigned at Not on file Gender Identity Female 01/16/2023 2:23 PM CDT Sexual Orientation Not on file documented as of this encounter Last Filed Vital Signs Vital Sign Reading Time Taken Comments Blood Pressure 130/80 09/01/2014 12:00 AM TELECOMMUNICATIONS SWITCH TECHNICIAN Pulse - - Temperature - - Respiratory Rate - - Oxygen Saturation - - Inhaled Oxygen Concentration - - Weight 85.7 kg (189 lb) 09/01/2014 12:00 AM TELECOMMUNICATIONS SWITCH TECHNICIAN Height 163.8 cm (5' 4.5) 09/01/2014 12:00 AM CS T Body Mass Index 31.94 09/01/2014 12:00 AM TELECOMMUNICATIONS SWITCH TECHNICIAN documented in this encounter Plan of Treatment Not on file documented as of this encounter Visit Diagnoses Not on filedocumented in this encounter Care Teams Director Of Officiating Relationship Specialty Start Date End Date Unknown, Provider . HIRAM PEGUERO [id number] PCP - General 03/26/18 04/29/19 Cortney Chandra MD [address] [place] [address] PCP - General Family Medicine 04/30/19 Cortney Chandra MD [address] [place] [address] PCP Family Medicine 04/29/19 04/29/19 [facility] 03/30/23 Primary Eye Care 03/30/23 documented as of this encounter Additional Source Comments PLEASE NOTE: Replies to this message will not be received.[facility] and [facility]
--- OUTSIDE RECORDS SUMMARY | 2024-05-18 13:44 | XMS_ITS | Encounter Summary ---
Author Organization [employer] Address [address] [place] [address] Care Team Providers Care Form Building Supervisor Name Role Phone Unknown, Provider Primary Care Provider Unavaila Cortney Gomez MD Unavailable [phone] Cortney Chandra MD Primary Care Provider [phone] Encounter Details Date Type Department Care Team (Late st Contact Info) Description 03/07/2016 Historical Conversion [facility] Family Medicine [address] [place] [address] Rosalia Lopez MD Social History Tobacco Use [...] CDT DERMATOLOGY OCTAVIO GALVAN : 1950 HX: [id number] DOS: 03/07/2016 CHIEF COMPLAINT: History of squamous [...] ineffective. Rosalia Lopez M.D./la-7 cc: Cortney Chandra M.D./[facility] Electronically signed by:Rosalia Lopez M.D. Mar 13 2016 8:17AM CLINICAL SUPPORT MANAGER documented in this encounter Plan of Treatment Not on file documented as of this encounter Visit Diagnoses Not on filedocumented in this encounter Care Teams Form Building Supervisor Relationship Specialty Start Date End Date Unknown, Provider . HIRAM PEGUERO [address] PCP - General 03/26/18 04/29/19 Cortney Chandra MD [address] [place] [address] PCP - General Family Medicine 04/30/19 Cortney Chandra MD [address] [place] [address] PCP Family Medicine 04/29/19 04/29/19 [facility] 03/30/23 Primary Eye Care 03/30/23 documented as of this encounter Additional Source Comments PLEASE NOTE: Replies to this message will not be received.[facility] and [facility]
--- OUTSIDE RECORDS SUMMARY | 2024-05-18 13:44 | XMS_ITS | Encounter Summary ---
Author Organization [employer] Address [address] [place] [address] Care Team Providers Care Exhibition Designer Name Role Phone Unknown, Provider Primary Care Provider Unavaila ble Cortney Chandra MD Unavailable [phone] Cortney Chandra MD Primary Care Provider [phone] Encounter Details Date Type Department Care Team (Late st Contact Info) Description 11/18/2013 Historical Conversion [facility] Family Medicine [address] [place] [address] [place] [address] Cortney Chandra MD [address] [place] [address] Social History Tobacco Use Types [...] Encounter] Recorded by : Marya Lyons at [id number] 10:47AM Blood Pressure 118 / 70, LUE, [...] on filedocumented in this encounter Care Teams Exhibition Designer Relationship Specialty Start Date End Date Unknown, Provider . HIRAM PEGUERO [address] PCP - General 03/26/18 04/29/19 Cortney Chandra MD [address] [place] [address] PCP - General Family Medicine 04/30/19 Cortney Chandra MD [address] [place] [address] PCP Family Medicine 04/29/19 04/29/19 [facility] 03/30/23 Primary Eye Care 03/30/23 documented as of this encounter Additional Source Comments PLEASE NOTE: Replies to this message will not be received.[facility] and [facility]
--- OUTSIDE RECORDS SUMMARY | 2024-05-18 13:44 | XMS_ITS | Encounter Summary ---
Author Organization [employer] Address [address] [place] [address] Care Team Providers Care Recruiter Manager Name Role Phone Unknown, Provider Primary Care Provider Unavaila ble Cortney Chandra MD Unavailable [phone] Cortney Chandra MD Primary Care Provider [phone] Encounter Details Date Type Department Care Team (Late st Contact Info) Description 09/01/2014 Historical Conversion [facility] Family Medicine [address] [place] [address]. [place] [address] Cortney Chandra MD [address] [place] [address] Social History Tobacco Use Types [...] has some skin discolorations on her Rt taoism C Giancarlo RECREATION DIRECTOR Current Meds 1. Aspirin 81 MG Oral [...] BY MOUTH NEEDED; Therapy: 30Sep2010 to (Last Rx:11Qup1889) Requested for: 50Kbd5822 Ordered 5. Fluticasone Propionate 50 MCG/ACT Nasal Suspension; INSTILL 1 SPRAY DAILY IN EACH NOSTRIL; Therapy: 17Apr2009 to (Evaluate:41Szr4177) Requested for: 09May2014; Last Rx:09May2014 Ordered 6. Hydrochlorothiazide 25 MG Oral Tablet; TAKE ONE TABLET EVERY MORNING; Therapy: 26May2008 to (Evaluate:06Ext1101) Requested for: 85Qfi3020; Last Rx:02Eei5530 Ordered 7. Loratadine 10 MG Oral Tablet; TAKE 1 TABLET BY MOUTH DAILY NEEDED; Therapy: 60Iou4922 to (Evaluate:30Zrr2283) Requested for: 04Jun2014; Last Rx:04Jun2014 Ordered 8. Losartan Potassium 100 MG Oral Tablet; TAKE 1 TABLET BY MOUTH ONCE DAILY; Therapy: 14Dww2327 to (Evaluate:08Itf5466) Requested for: 13Feb2014; Last Rx:60Dok1252 Ordered 9. MetFORMIN HCl ER 500 MG Oral Tablet Extended Release 24 Hour; TAKE 4 TABLETS( 2000MG) BY MOUTH ONCE DAILY; Therapy: 85Nvb4391 to (Evaluate:84Enr0658) Requested for: 73Brh6642; Last Rx:09Mhe4187 Ordered 10. One-Daily Multi Vitamins Oral Tablet; TAKE 1 TABLET DAILY; Therapy: (Recorded:23Jul2012) to Recorded 11. ProAir HFA 108 (90 Base) MCG/ACT Inhalation Aerosol Solution; INHALE 2 PUFFS EVERY 4 HOURS NEEDED FOR COUGHAND WHEEZE; Therapy: 26May2008 to (Last Rx:09May2014) Requested for: 09May2014 Ordered 12. Simvastatin 20 MG Oral Tablet; TAKE ONE TABLET BY MOUTH DAILY; Therapy: 15Wvd0173 to (Evaluate:04Dec2014) Requested for: 09Dec2013; Last Rx:09Dec2013 [...] Vital Signs [Data Includes: Current Encounter] Recorded: 27Dji9183 08:19AM Blood Pressure 130 / 80, LUE, [...] all visit details. PLAN: As above. Cortney Chnadra M.D./lb-11 Assessment 1. Never smoked 2. 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 Controlled diabetes mellitus (250.00) (E11.9) 4. Encounter for preventive health examination (V70.0) (Z00.00) Signatures Electronically signed by : Cortney Chandra M.D.; Sep 15 2014 10:14AM PEST CONTROL OPERATOR documented in this encounter Plan of Treatment Not on file documented as of this encounter Visit Diagnoses Not on filedocumented in this encounter Care Teams Recruiter Manager Relationship Specialty Start Date End Date Unknown, Provider . HIRAM PEGUERO [id number] PCP - General 03/26/18 04/29/19 Cortney Chandra MD [address] [place] [address] PCP - General Family Medicine 04/30/19 Cortney Chandra MD [address] [place] [address] PCP Family Medicine 04/29/19 04/29/19 [facility] 03/30/23 Primary Eye Care 03/30/23 documented as of this encounter Additional Source Comments PLEASE NOTE: Replies to this message will not be received.[facility] and [facility]
--- OUTSIDE RECORDS SUMMARY | 2024-05-18 13:44 | XMS_ITS | Encounter Summary ---
Author Organization [employer] Address [address] [place] [address] Care Team Providers Care Director Business Intelligence Name Role Phone Unknown, Provider Primary Care Provider Unavaila Cortney Gomez MD Unavailable [phone] Cortney Chandra MD Primary Care Provider [phone] Encounter Details Date Type Department Care Team (Late st Contact Info) Description 11/07/2014 Historical Conversion [facility] Family Medicine [address] [place] [address]. [place] [address] Cortney Chandra MD [address] [place] [address] Social History Tobacco Use Types [...] filedocumented in this encounter Care Teams Director Business Intelligence Relationship Specialty Start Date End Date Unknown, Provider . HIRAM PEGUERO [address] PCP - General 03/26/18 04/29/19 Cortney Chandra MD [address] [place] [address] PCP - General Family Medicine 04/30/19 Cortney Chandra MD [address] [place] [address] PCP Family Medicine 04/29/19 04/29/19 [facility] 03/30/23 Primary Eye Care 03/30/23 documented as of this encounter Additional Source Comments PLEASE NOTE: Replies to this message will not be received.[facility] and [facility]
--- OUTSIDE RECORDS SUMMARY | 2024-05-18 13:44 | XMS_ITS | Encounter Summary ---
Author Organization [employer] Address [address] [place] [address] Care Team Providers Care Automatic Driller And Reamer Name Role Phone Unknown, Provider Primary Care Provider Unavaila Cortney Gomez MD Unavailable [phone] Cortney Chandra MD Primary Care Provider [phone] Encounter Details Date Type Department Care Team (Late st Contact Info) Description 06/16/2017 Historical Conversion [facility] Family Medicine [address] [place] [address] Rosalia Lopez MD Social History Tobacco Use Types Packs/Day Years Used Date Smoking Tobacco: Never Assessed Sex and Gender Information Value Date Recorded Sex Assigned at Not on file Gender Identity Female 01/16/2023 2:23 PM CDT Sexual Orientation Not on file documented as of this encounter Last Filed Vital Signs Vital Sign Reading Time Taken Comments Blood Pressure 136/81 06/16/2017 12:00 AM PUBLIC DEFENDER Pulse - - Temperature - - Respiratory Rate - - Oxygen Saturation - - Inhaled Oxygen Concentration - - Weight 86.5 kg (190 lb 11.2 oz) 017 12:00 AM PUBLIC DEFENDER Height - - Body Mass Index 32.56 08/19/2016 12:00 AM PUBLIC DEFENDER documented in this encounter Progress Notes * Rosalia Lopez MD - 06/16/2017 12:00 AM CST DERMATOLOGY OCTAVIO GALVAN : 1950 HX: [id number] DOS: 06/16/2017 CHIEF COMPLAINT: History of squamous [...] lesion. Rosalia Lopez M.D./ cc: Cortney Chandra M.D./[facility] Electronically signed by:Rosalia Lopez M.D. Jun 23 2017 8:25AM PUBLIC DEFENDER documented in this encounter Plan of Treatment Not on file documented as of this encounter Visit Diagnoses Not on filedocumented in this encounter Care Teams Automatic Driller And Reamer Relationship Specialty Start Date End Date Unknown, Provider . HIRAM PEGUERO [address] PCP - General 03/26/18 04/29/19 Cortney Chandra MD [address] [place] [address] PCP - General Family Medicine 04/30/19 Cortney Chandra MD [address] [place] [address] PCP Family Medicine 04/29/19 04/29/19 [facility] 03/30/23 Primary Eye Care 03/30/23 documented as of this encounter Additional Source Comments PLEASE NOTE: Replies to this message will not be received.[facility] and [facility]
== END 2024-05-18 13:41 | disposition home or self-care (01) ==
LOC: CT 13:41
PROVIDERS: PCP Internal Medicine; Visit Provider Orthopaedic Surgery Sports Medicine
DX: M19.012 Primary osteoarthritis, left shoulder (principal); Z01.818 Encounter for other preprocedural examination
CPT/HCPCS: 73200

== ENCOUNTER 2024-05-27 12:46 | Outpatient (REF) | payer MEDICARE, SELFPAY ==
--- OUTSIDE RECORDS SUMMARY | 2024-05-27 12:51 | XMS_ITS | Encounter Summary ---
Author Organization [employer] Address [address] [place] [address] Care Team Providers Care Molding Fitter Name Role Phone Cortney Chandra MD Primary Care Provider [phone] Reason for Visit * Reason Onset Date Comments Questions 05/06/2024 Encounter Details Date Type Department Care Team (Late st Contact Info) Description 05/06/2024 Telephone [facility] [address] [facility] [place], [place] [id number] Jodie Alford LPN Chief Comp: Questions Social History Tobacco Use Types Packs/Day Years Used Date Smoking Tobacco: Never Smokeless Tobacco: Never Alcohol Use Standard Drinks/Week Comments Never 0 (1 standard drink = 0.6 oz pur e alcohol) [facility] Utilities Answer Date Recorded In [...] often do you attend chur ch or jain services? More than 4 times per year 08/15/2023 Do you belong to any clubs o r organizations such as scientologist groups, unions, fraternal or athletic groups, or [...] and heating? Not hard at all 08/15/2023 [facility] - Occupational [...] as I think she is still in [place] with October. Can you confirm? * Telephone Encounter - Jodie Alford LPN - 05/06/2024 4:18 PM CDT ----- Message from Lanie sent at 05/06/2024 4:01 PM CDT ----- Regarding: call back Patient was returning call about her MAW. You were not available at time of call. Please call her back [phone] Thank you documented in this encounter Plan of Treatment Not on file documented as of this encounter Visit Diagnoses Not on filedocumented in this encounter Care Teams Molding Fitter Relationship Specialty Start Date End Date Cortney Chandra MD [address] [place] [address] PCP - General Family Medicine 04/30/19 [facility] 03/30/23 Primary Eye Care 9/25/23 documented as of this encounter Additional Source Comments PLEASE NOTE: Replies to this message will not be received.[facility] and [facility]
--- OUTSIDE RECORDS SUMMARY | 2024-05-27 12:51 | XMS_ITS | Encounter Summary ---
Author Organization [email or web address] Address [address] [place] [address] Care Team Providers Care Inspector Chief Name Role Phone Cortney Chandra MD Primary Care Provider [phone] Reason for Visit * Reason Onset Date Comments Medicare Wellness 05/06/2024 Encounter Details Date Type Department Care Team (Late st Contact Info) Description 05/06/2024 Telephone [facility] [address] [facility] [place], [place] [id number] Ely Ragland CMA Chief Comp: Medicare Wellness Social History Tobacco Use Types Packs/Day Years Used Date Smoking Tobacco: Never Smokeless Tobacco: Never Alcohol Use Standard Drinks/Week Comments Never 0 (1 standard drink = 0.6 oz pur e alcohol) [facility] Utilities Answer Date Recorded In [...] often do you attend chur ch or protestant services? More than 4 times per year 08/15/2023 Do you belong to any clubs o r organizations such as islam groups, unions, fraternal or athletic groups, or [...] and heating? Not hard at all 08/15/2023 [facility] - [...] place to sleep or slept in a long term (including now)? No 08/15/2023 Depression (PHQ-9) Answer [...] filedocumented in this encounter Care Teams Inspector Chief Relationship Specialty Start Date End Date Cortney Chandra MD [address] [place] [address] PCP - General Family Medicine 04/30/19 [facility] 03/30/23 Primary Eye Care 03/30/23 documented as of this encounter Additional Source Comments PLEASE NOTE: Replies to this message will not be received.[facility] and [facility]
--- OUTSIDE RECORDS SUMMARY | 2024-05-27 12:51 | XMS_ITS | Clinical Summary ---
Author Organization [email or web address] [facility] Address [address] [place] [address] Care Team Providers Care Internal Revenue Service Agent Name Role Phone Cortney Espinosa MD Primary Care Provider +1- [phone] Allergies Active Allergy Reactions Criticality Noted Date Comments Tramadol Nausea and / or Vomiting Low 04/29/2019 Medications Medication Sig Dispensed Refills Start Date End Date Status albuterol HFA (AKA: PROVENTIL/VENTOLIN) 90 mcg/actuation inhalation HFA Aerosol Inhaler 1-2 Puffs by inhalation route every 4 hours if needed for shortness of breath. Active E-S-G-zinc-sod selenate-copper (AKA: OCUVITE, PROSIGHT) 5,000-60-30 [id number] oral Tablet Take 1 Tablet by mouth [...] Active fluticasone propionate (FLONASE) 50 mcg/actuation nasal [place], SuspensionIndication s:Allergic rhinitis due to pollen, unspecified [...] Type Department Care Team Description 05/09/2024 Telephone [facility] [address] [place] [address] Zahraa Larson, LUCIA Chief Comp: Medicare Wellness 05/06/2024 Telephone [facility] [address] [place] [address] Jodie Alford LPN Chief Comp: Questions 05/06/2024 Telephone [facility] [address] [place] [address] Ely Ragland CMA Chief Comp: Medicare Wellness 04/13/2024 Telephone [place] [facility] [phone] [place] [address] Daryl Mary RN Dx: Other hyperlipidemia (Primary Dx) 04/07/2024 Telephone [place] [phone] [place] [address] Cortney Espinosa MD Chief Comp: Questions 04/05/2024 Telephone [place] [phone] [place] [address] Ingrid George, LUCIA Chief Comp: Questions 03/08/2024 Patient Message [place] [phone] [place] [address] Cortney Espinosa MD Dx: Other hyperlipidemia 03/01/2024 Refill [place] [address] [place] [address] Cortney Espinosa MD Dx: Essential hypertension (Primary Dx) from Last 3 Months Immunizations [...] = 0.6 oz pur e alcohol) [facility] Utilities Answer Date Recorded In the past 12 months has e [employer], gas, oil, or water [employer] threatened to shut off services in your [...] often do you attend chur ch or roman catholic services? More than 4 times per year 08/15/2023 Do you belong to any clubs o r organizations such as latter-day groups, unions, fraternal or athletic groups, or [...] and heating? Not hard at all 08/15/2023 [facility] of Occupat ional Health - Occupational Stress [...] Comments Blood Pressure 139/81 08/21/2023 9:47 AM [employer] Pulse 77 08/21/2023 9:47 AM [facility] Temperature 36.9 C (98.5 F) 08/21/2023 9:47 AM [facility] Respiratory Rate 18 08/21/2023 9:47 AM [facility] Oxygen Saturation 96% 08/21/2023 9:47 AM [facility] Inhaled Oxygen Concentration - - Weight 73 kg (161 lb) 08/21/2023 9:47 AM [facility] Height 161.1 cm (5' 3.43) 03/30/2023 10:53 AM C DT Body Mass Index 28.14 03/30/2023 10:53 AM CDT Plan of Treatment Health Maintenance Due Date Last Done Comments Varicella Zoster Sequential (2 of 3) 07/23/2009 05/28/2009 Respiratory Syncytial Virus (RSV) Vaccine (1 - 1-dose 75+ series) 01/25/2023 COVID-19 Vaccine (2023- season) 2024 04/27/2023, 04/03/2022, 11/01/2021, Additional history [...] GLYCOSYLATED HEMOGLOBIN, A1C Routine 09/10/2023 9:59 AM [facility] Type 2 diabetes mellitus with stage 1 [...] EYE EXAM - EXTERNAL (12/25/2023) RETINOPATHY Negative [facility] Cortney Espinosa [place] [address], * GLYCOSYLATED HEMOGLOBIN, A1C (09/10/2023 9:59 AM [facility]) Hemoglobin A1c 6.3 <=6.4 % 09/10/2023 10:27 AM [facility] Estimated Average Glucose 134 mg/dL 09/10/2023 10:27 AM [facility] Blood VENOUS BLOOD / Unknown Venipuncture / Unknown 09/10/2023 9:59 AM [facility] 09/10/2023 9:59 AM [facility] Cortney Espinosa MD LAB CHEMISTRY ORDE RABLES [facility] [address] [place] [address], [place] [phone] * MICROALBUMIN, RANDOM, URINE (03/30/2023 11:28 AM CDT) Microalbumin, Urine <12.0 mg/L 03/30/2023 1:[address] [facility] Creatinine, Urine 71.1 mg/dL 03/30/2023 1:[address] [facility] Microalbumin/Cr eatinine Ratio 03/30/2023 1:[address] [facility] Comment: Unable to calculate ratio due to decreased Microalbumin. Normal: <30 Microalbuminuria: 30-299 Clinical Microalbuminuria: >300 Urine SPOT URINE SPECIMEN / Unknown Non-blood Collection / Unknown 03/30/2023 11:28 AM CDT 03/30/2023 11:28 AM CDT Cortney Espinosa MD LAB URINE ORDERABL ES Performing Organization Address [facility]/ZIP Co de Phone Number [facility] [address] [place] [address], [place] [phone] * (ABNORMAL) LIPID PANEL (03/30/2023 11:28 AM CDT) Cholesterol 138 0 - 200 mg/dL 03/30/2023 1:[address] [facility] Triglycerides 86 0 - 150 mg/dL 03/30/2023 1:[address] [facility] Cholesterol, LDL (Calculated) 69 <=100 mg/dL 03/30/2023 1:[address] [facility] Cholesterol, HDL 52(L) 60 - 150 mg/dL 03/30/2023 1:[address] [facility] Cholesterol, vLDL 17 0 - 130 mg/dL 03/30/2023 1:[address] [facility] Fasting Status Yes 03/30/2023 1:[address] [facility] Blood VENOUS BLOOD / Unknown Venipuncture / Unknown 03/30/2023 11:28 AM CDT 03/30/2023 11:28 AM CDT Cortney Espinosa MD LAB CHEMISTRY ZACH GALAN [facility] Organization Address City/State/ZIP Co de Phone Number [facility] [address] [place] [address], * DEXA HIP AND SPINE (02/26/2021 10:38 [...] PM CDT) 03/01/2020 12:0 1 PM CDT [facility] GI - 03/01/2020 1:05 PM CDT Patient Name: SUMAYA GALVAN Procedure Date: 03/01/2020 Date of : 1950 Attending MD: BILLY ESPINOSA MD Referring MD CORTNEY ESPINOSA Additional Staff Jade Copeland, Cleaning Manager; Malini Quiros RN Patient Profile - Refer to note in patient chart for documentation of history and physical. Patient Profile - This is a 70 year old female. Comorbidities - Hypertension Comorbidities - Asthma Indications - Screening for colorectal malignant neoplasm Medications - Fentanyl 200 micrograms IV Medications - Midazolam 10 mg IV Complications - No immediate complications. Estimated Blood Loss - Estimated blood loss was minimal. Procedure - Prior to the procedure, a History and Physical was performed, and patient medications, allergies and sensitivities were reviewed. The patient's tolerance of previous anesthesia was reviewed. Procedure - The risks and benefits of the procedure and the sedation options and risks were discussed with the patient. All questions were answered and informed consent was obtained. Procedure - Patient identification and proposed procedure were verified prior to the procedure by the physician. The procedure was verified in the procedure room. Procedure - The Colonoscope was introduced through the anus and advanced to the cecum, identified by appendiceal orifice and ileocecal valve. Procedure - The colonoscopy was performed without difficulty. Procedure - The patient tolerated the procedure well. Procedure - The quality of the bowel preparation was good. Procedure - The ileocecal valve, appendiceal orifice, and rectum were photographed. Findings - The perianal and digital rectal examinations were normal. Pertinent negatives include no palpable rectal lesions and normal sphincter tone. Findings - Multiple medium-mouthed diverticula were found in the sigmoid colon. There was no evidence of diverticular bleeding. Findings - The exam was otherwise without abnormality on direct and retroflexion views. Impression - Moderate diverticulosis in the sigmoid colon. There was no evidence of diverticular bleeding. Impression - The examination was otherwise normal on direct and retroflexion views. Impression - No specimens collected. Recommendation - Repeat colonoscopy in 10 years for surveillance. Procedure [...] without bleeding Diagnosis Code(s)CPT(R) - 2019 copyright [employer]. All Rights Reserved. Diagnosis Code(s)The CPT codes, CCI edits and ICD codes generated are intended as suggestions and were generated based on input data. These codes are preliminary and upon surveyor mine review may be revised to meet current compliance and payer requirements. The provider is responsible for the final determination of appropriate codes, and modifiers. Scope Withdrawal Time 00:12:06 Signature Name: Billy Espinosa Signature Statement:This document has been electronically signed. Note Initiated On:03/01/2020 Signature Date:03/01/2020 1:05 PM Cortney Espinosa MD GI PROCEDURES [facility] [address] [place] [address], from Last 3 Months or Most Recently Relevant to Health Maintenance Advance Directives Documents on File Type Date Recorded Patient Barrel Tester Expl anation Physician Orders for Life-Sustaining Treatment (POLST) 05/18/2023 2:28 PM POLST POLST-S 04/03/2023 2:26 PM Advanced Directives 06/06/2020 1:42 PM [facility] Health Care Directive-S 02/17/2005 1:42 PM Care Teams Internal Revenue Service Agent Relationship Specialty Start Date End Date Cortney Espinosa MD [address] [place] [phone] PCP - General Family Medicine 04/30/19 [facility] 03/30/23 Primary Eye Care 03/30/23 Additional Source Comments PLEASE NOTE: Replies to this message will not be received.[facility]
--- OUTSIDE RECORDS SUMMARY | 2024-05-27 12:51 | XMS_ITS | Referral Summary ---
Author Organization [facility] [employer] [facility] Address [address] [place] [address] Care Team Providers Care Assistant Front Desk Manager Name Role Phone Cortney Espinosa MD Primary Care Provider +1- [phone] Encounters Date Type Department Care Team Description 05/09/2024 Telephone [place] [phone] [place], [place] [address] Zahraa Larson RN Chief Comp: Medicare Wellness 05/06/2024 Telephone [place] [phone] [place], [place] [phone] Jodie Alford LPN Chief Comp: Questions 05/06/2024 Telephone [place] [phone] [place], [place] [address] Ely Ragland CMA Chief Comp: Medicare Wellness 04/13/2024 Telephone [place] [phone] [place] [address] Daryl Mary, LUCIA Dx: Other hyperlipidemia (Primary Dx) 04/07/2024 Telephone [place] [phone] [place] [address] Cortney Espinosa MD Chief Comp: Questions 04/05/2024 Telephone [place] [phone] [place] [address] Ingrid George RN Chief Comp: Questions 03/08/2024 Patient Message [facility] [place] [address] Cortney Espinosa MD Dx: Other hyperlipidemia 03/01/2024 Refill [facility] [place] [address] Cortney Espinosa MD Dx: Essential hypertension (Primary Dx) from Last 3 Months Allergies Active Allergy Reactions Criticality Noted Date Comments Tramadol Nausea and / or Vomiting Low 04/29/2019 Medications Medication Sig Dispensed Refills Start Date End Date Status albuterol HFA (AKA: PROVENTIL/VENTOLIN) 90 mcg/actuation inhalation HFA Aerosol Inhaler 1-2 Puffs by inhalation route every 4 hours if needed for shortness of breath. Active E-T-S-zinc-sod selenate-copper (AKA: OCUVITE, PROSIGHT) 5,000-60-30 smhl-sh-heyt oral Tablet Take 1 Tablet by mouth [...] Active fluticasone propionate (FLONASE) 50 mcg/actuation nasal [place], SuspensionIndication s:Allergic rhinitis due to pollen, unspecified [...] Recorded In the past 12 months has [employer], [employer], or water [employer] threatened to shut off services in your [...] and heating? Not hard at all 08/15/2023 [facility] [place] of Occupat ional Health - Occupational Stress [...] Comments Blood Pressure 139/81 08/21/2023 9:47 AM [employer]IL BIOLOGY TEACHER Pulse 77 08/21/2023 9:47 AM SOIL BIOLOGY TEACHER Temperature 36.9 C (98.5 F) 08/21/2023 9:47 AM [employer]IL [employer] TE[employer] Respiratory Rate 18 08/21/2023 9:47 AM [employer]IL BIOLOG[employer] TEACHER Oxygen Saturation 96% 08/21/2023 9:47 AM [employer]IL BIOLOG[employer] TEACHER Inhaled Oxygen Concentration - - Weight 73 kg (161 lb) 08/21/2023 9:47 AM [employer]IL BIOLOGY TEACHER Height 161.1 cm (5' 3.43) 03/30/2023 10:53 [...] GLYCOSYLATED HEMOGLOBIN, A1C Routine 09/10/2023 9:59 AM [employer]IL BIOLOGY TEACHER Type 2 diabetes mellitus with stage 1 [...] MD NURSING [facility] Performing Organization Address City/[facility]/ZIP Co de Phone Number [address] [address], * GLYCOSYLATED HEMOGLOBIN, A1C (09/10/2023 9:59 AM SOIL BIOLOGY TEACHER) Hemoglobin A1c 6.3 <=6.4 % 09/10/2023 10:27 AM SOIL BIOLOGY TEACHER [facility] Estimated Average Glucose 134 mg/dL 09/10/2023 10:27 AM SOIL BIOLOGY TEACHER [facility] Blood VENOUS BLOOD / Unknown Venipuncture / Unknown 09/10/2023 9:59 AM SOIL BIOLOGY TEACHER 09/10/2023 9:59 AM SOIL BIOLOGY TEACHER Cortney Espinosa MD LAB CHEMISTRY ORDE ADAMA Performing Organization Address City/[facility]/ZIP Co de Phone Number [address] [place] [address], [place] [phone] * MICROALBUMIN, RANDOM, URINE (03/30/2023 11:28 AM CDT) Microalbumin, Urine <12.0 mg/L 03/30/2023 1:46 PM CDT [facility] Creatinine, Urine 71.1 mg/dL 03/30/2023 1:46 PM T [facility] Microalbumin/Cr eatinine Ratio 03/30/2023 1:46 PM CDT [facility] Comment: Unable to calculate ratio due to decreased Microalbumin. Normal: <30 Microalbuminuria: 30-299 Clinical Microalbuminuria: >300 Urine SPOT URINE SPECIMEN / Unknown Non-blood Collection / Unknown 03/30/2023 11:28 AM CDT 03/30/2023 11:28 AM CDT Cortney Espinosa MD LAB URINE ORDERABL ES [facility] [address] [place] [address], [place] [phone] * (ABNORMAL) LIPID PANEL (03/30/2023 11:28 AM CDT) Cholesterol 138 0 - 200 mg/dL 03/30/2023 1:39 PM T [facility] Triglycerides 86 0 - 150 mg/dL 03/30/2023 1:39 PM T [facility] Cholesterol, LDL (Calculated) 69 <=100 mg/dL 03/30/2023 1:39 PM T [facility] Cholesterol, HDL 52(L) 60 - 150 mg/dL 03/30/2023 1:39 PM T [facility] Cholesterol, vLDL 17 0 - 130 mg/dL 03/30/2023 1:39 PM [facility] Fasting Status Yes 03/30/2023 1:39 PM T [facility] Blood VENOUS BLOOD / Unknown Venipuncture / Unknown 03/30/2023 11:28 AM CDT 03/30/2023 11:28 AM CDT Cortney Espinosa MD LAB CHEMISTRY ZACH GALAN [facility] Organization Address City/State/ZIP Co de Phone Number [facility] [address] [place] [address], * DEXA HIP AND SPINE (02/26/2021 10:38 [...] PM CDT) 03/01/2020 12:0 1 PM CDT [facility] GI - 03/01/2020 1:05 PM CDT Patient Name: SUMAYA GALVAN Procedure Date: 03/01/2020 Date of : 1950 Attending MD: BILLY ESPINOSA MD Referring MD CORTNEY ESPINOSA Additional Staff Jade Copeland, Amplifier Mechanic; Malini Quiros RN Patient Profile - Refer [...] without bleeding Diagnosis Code(s)CPT(R) - 2019 copyright [employer]. All Rights Reserved. Diagnosis Code(s)The CPT codes, CCI edits and ICD codes generated are intended as suggestions and were generated based on input data. These codes are preliminary and upon adjunct history instructor review may be revised to meet current compliance and payer requirements. The provider is responsible for the final determination of appropriate codes, and modifiers. Scope Withdrawal Time 00:12:06 Signature Name: Billy Espinosa Signature Statement:This document has been electronically signed. Note Initiated On:03/01/2020 Signature Date:03/01/2020 1:05 PM Cortney Espinosa MD GI PROCEDURES [facility] [address] [place] [address], from Last 3 Months or Most Recently Relevant to Health Maintenance Advance Directives Documents on File Type Date Recorded Patient Support Group Manager Expl anation Physician Orders for Life-Sustaining Treatment (POLST) 05/18/2023 2:28 PM POLST POLST-S 04/03/2023 2:26 PM Advanced Directives 06/06/2020 1:42 PM [facility] Health Care Directive-S 02/17/2005 1:42 PM Care Teams Assistant Front Desk Manager Relationship Specialty Start Date End Date Cortney Espinosa MD [address] [place] [address] [place] [address] PCP - General Family Medicine 04/30/19 [facility] 03/30/23 Primary Eye Care 03/30/23 Additional Source Comments PLEASE NOTE: Replies to this message will not be received.[facility]
--- OUTSIDE RECORDS SUMMARY | 2024-05-27 12:51 | XMS_ITS | Encounter Summary ---
Author Organization [employer] Address [address] [place] [address] Care Team Providers Care Manager Line Name Role Phone Cortney Chandra MD Primary Care Provider +1- [phone] Reason for Visit * Reason Onset Date Comments Medicare Wellness 05/09/2024 Encounter Details Date Type Department Care Team (Late st Contact Info) Description 05/09/2024 Telephone [facility] [address] [place], [place] [phone] Zahraa Larson RN Chief Comp: Medicare Wellness [...] often do you attend chur ch or confucianist services? More than 4 times [...] and heating? Not hard at all 08/15/2023 [facility] of Occupat ional Health - [...] Annual Wellness visit. She is staying in [place] at the present time. She has a terrible fall on March 05 and has been in the hospital and currently doing rehab with PT and OT coming to the house. She had a MA[facility] visit at the [facility] about a month/month and half ago. She does plan on coming back to [place] when she is done with PT and OT and will make an appointment to come in and see Dr. Day. N HELPER documented in this encounter Plan of Treatment Not on file documented as of this encounter Visit Diagnoses Not on filedocumented in this encounter Care Teams Manager Line Relationship Specialty Start Date End Date Cortney Chandra MD [address] [place] [phone] PCP - General Family Medicine 04/30/19 [facility] 03/30/23 Primary Eye Care 03/30/23 documented as of this encounter Additional Source Comments PLEASE NOTE: Replies to this message will not be received.[facility]
--- OUTSIDE RECORDS SUMMARY | 2024-05-27 12:51 | XMS_ITS | Encounter Summary ---
Author Organization [employer] Address [address] [place] [address] Care Team Providers Care Claim Examiner Name Role Phone Cortney Chandra MD Primary Care Provider +1- [phone] Reason for Visit * Reason Onset Date Comments Medication Questions 04/13/2024 Encounter Details Date Type Department Care Team ([facility] st Contact Info) Description 04/13/2024 Telephone [facility] [address] [facility] [place], [place] [phone] Daryl Mary RN Dx: Other hyperlipidemia (Primary Dx) Social History Tobacco Use Types Packs/Day Years Used Date Smoking Tobacco: Never Smokeless Tobacco: Never Alcohol Use Standard Drinks/Week Comments Never 0 (1 standard drink = 0.6 oz pur e alcohol) [facility] Utilities Answer Date Recorded In the past 12 months has [facility], gas, oil, or water [employer] threatened to shut off services in your [...] often do you attend chur ch or sikh services? More than 4 times per year [...] place to sleep or slept in a fpc (including now)? No 08/15/2023 Depression (PHQ-9) Answer [...] Primary documented in this encounter Care Teams Claim Examiner Relationship Specialty Start Date End Date Cortney Chandra MD [address] [place] [address] PCP - General Family Medicine 04/30/19 [facility] 03/30/23 Primary Eye Care 03/30/23 documented as of this encounter Additional Source Comments PLEASE NOTE: Replies to this message will not be received.[facility]
--- OUTSIDE RECORDS SUMMARY | 2024-05-27 12:52 | XMS_ITS | Encounter Summary ---
Author Organization [employer] [facility] Address [address] [place] [address] Care Team Providers Care Bible Teacher Name Role Phone Cortney Chandra MD Primary Care Provider +1- [phone] Reason for Visit * Reason Onset Date Comments Questions 04/05/2024 Encounter Details Date Type Department Care Team (Late st Contact Info) Description 04/05/[address] [place] [phone] [facility] [place], [place] [phone] Ingrid George RN Chief Comp: Questions Social History Tobacco Use Types Packs/Day Years Used Date Smoking Tobacco: Never Smokeless Tobacco: Never Alcohol Use Standard Drinks/Week Comments Never 0 (1 standard drink = 0.6 oz pur e alcohol) [facility] Utilities Answer Date Recorded In [...] often do you attend chur ch or zoroastrian services? More than 4 times per year 08/15/2023 Do you belong to any clubs o r organizations such as temple groups, unions, fraternal or athletic groups, or [...] and heating? Not hard at all 08/15/2023 [facility] of Occupat ional Health - Occupational [...] 04/05/2024 8:38 AM CDT ----- Message from [employer] sent at 04/04/2024 4:28 PM CDT ----- Regarding: Call Back Fermin from [facility]. Would like a call back at [phone]. Aware you will be in the office on Thursday. Thank you. documented in this encounter Plan of Treatment Not on file documented as of this encounter Visit Diagnoses Not on filedocumented in this encounter Care Teams Bible Teacher Relationship Specialty Start Date End Date Cortney Chandra MD [address] [place] [phone] PCP - General Family Medicine 04/30/19 [facility] 03/30/23 Primary Eye Care 03/30/23 documented as of this encounter Additional Source Comments PLEASE NOTE: Replies to this message will not be received.[facility]
--- OUTSIDE RECORDS SUMMARY | 2024-05-27 12:52 | XMS_ITS | Encounter Summary ---
Author Organization [employer] Address [address] [place] [address] Care Team Providers Care Religious Studies Professor Name Role Phone Unknown, Provider Primary Care Provider Unavaila ble Cortney Chandra MD Unavailable [phone] Cortney Chandra MD Primary Care Provider [phone] Encounter Details Date Type Department Care Team (Late st Contact Info) Description 08/19/2016 Historical Conversion [facility] Family Medicine [address] [place] [address] [place] [address] Cortney Chandra MD [address] [place] [address] Social History Tobacco Use Types Packs/Day Years Used Date Smoking Tobacco: Never Assessed Sex and Gender Information Value Date Recorded Sex Assigned at Not on file Gender Identity Female 01/16/2023 2:23 PM CDT Sexual Orientation Not on file documented as of this encounter Last Filed Vital Signs Vital Sign Reading Time Taken Comments Blood Pressure 132/78 08/19/2016 12:00 AM ACCOUNTS SPECIALIST Pulse - - Temperature - - Respiratory Rate - - Oxygen Saturation - - Inhaled Oxygen Concentration - - Weight 86.2 kg (190 lb 0.6 oz) 08/19/2016 12:00 AM ACCOUNTS SPECIALIST Height 163 cm (5' 4.17) 08/19/2016 12:00 AM ACCOUNTS SPECIALIST Body Mass Index 32.44 08/19/2016 12:00 AM ACCOUNTS SPECIALIST documented in this encounter Progress Notes * [...] back pain, mostly on left side. Derick CADDY History of Present Illness Octavio developed left [...] TO 6 HOURS NEEDED; Therapy: 05Oct2012 to (Evaluate:46Iap7737); Last Rx:75Ath1970 Ordered 3. Cyclobenzaprine HCl - 10 MG Oral Tablet; TAKE 1/2 TO 1 TABLET THREE TIMES DAILY; Therapy: 30Sep2010 to (Evaluate:48Fym9872) Requested for: 07Jul2016; Last Rx:07Jul2016 Ordered 4. Fluticasone Propionate 50 MCG/ACT Nasal Suspension; INSTILL 1 SPRAY DAILY IN EACH NOSTRIL; Therapy: 17Apr2009 to (Evaluate:15Dec2016) Requested for: 91Bkt3013; Last Rx:89Lfs0948 Ordered 5. Hydrocortisone 2.5 % External Cream; APPLY SPARINGLY TO AFFECTED AREA(S) TWICE DAILY; Therapy: 20Jul2015 to (Evaluate:28Jul2016) Requested for: 85Hkt8229; Last Rx:47Svj4376 Ordered 6. Loratadine 10 MG Oral Tablet; TAKE 1 TABLET BY MOUTH DAILY NEEDED; Therapy: 47Mte2869 to (Evaluate:12Sep2017) Requested for: 17Sep2016; Last Rx:17Sep2016 Ordered 7. Losartan Potassium 100 MG Oral Tablet; TAKE 1 TABLET BY MOUTH ONCE DAILY; Therapy: 23Jkl3626 to (Evaluate:18Jul2017) Requested for: 23Jul2016; Last Rx:23Jul2016 Ordered 8. MetFORMIN HCl ER 500 MG Oral Tablet Extended Release 24 Hour; TAKE 4 TABLETS( 2000MG) BY MOUTH ONCE DAILY; Therapy: 03Pod0661 to (Evaluate:25Jul2017) Requested for: 30Jul2016; Last Rx:30Jul2016 Ordered 9. One-Daily Multi Vitamins Oral Tablet; TAKE 1 TABLET DAILY; Therapy: (Recorded:23Jul2012) to Recorded 10. Simvastatin 20 MG Oral Tablet; TAKE ONE TABLET BY MOUTH DAILY; Therapy: 58Xyo6033 to (Evaluate:18Jul2017) Requested for: 23Jul2016; Last Rx:23Jul2016 Ordered 11. Vitamin D3 1000 UNIT Oral Tablet; takes 2 tablets daily; Therapy: (Recorded:80Ycl1947) to Recorded Allergies 1. Ultram TABS Vitals [...] Cortney Chandra M.D.; Dec 18 2016 8:57PM ACCOUNTS SPECIALIST documented in this encounter H&P Notes * [...] Metabolic Panel; Status:Resulted - Requires Verification; Done: 75Gad0215 10:48AM Controlled diabetes mellitus Hemoglobin A1C; Status:Resulted - Requires Verification; Done: 47Ner4219 10:48AM Lipid Panel; Status:Resulted - Requires Verification; Done: 53Fik7073 10:48AM Microalbumin (Random); Status:Resulted - Requires Verification; Done: 32Mqt5346 10:48AM Fatigue, Screening for thyroid disorder TSH; Status:Resulted - Requires Verification; Done: 84Oho8015 10:48AM Health Maintenance Prevnar 13 Intramuscular Suspension Visit for screening mammogram Mammo Screen Bilat - 2109; Status:Resulted - Requires Verification; Done: 97Dbm1685 11:12AM Vitamin D deficiency Drawing Fee; Status:Complete; Done: 92Ton0476 Vitamin D Total [facility]; Status:Resulted - Requires Verification; Done: 44Scj5686 10:48AM Reason For Visit Pt. presents today for medicare px. Derick MATTHEWN History of Present Illness Octavio is here for annual Medicare wellness exam. She also is due for her labs for diabetes. She is felling well but does c/o pain in her left upper arm since an injury at [facility]. She slipped on the ice getting out [...] Aspirin 81 MG TABS; ONE DAILY; Last Rx:85Bso1175 Ordered 2. Cheratussin AC 100-10 MG/5ML Oral Syrup; TAKE 10 ML EVERY 4 TO 6 HOURS NEEDED; Therapy: 05Oct2012 to (Evaluate:17Vyu0892); Last Rx:06Lat4797 Ordered 3. Cyclobenzaprine HCl - 10 MG Oral Tablet; TAKE 1/2 TO 1 TABLET THREE TIMES DAILY; Therapy: 30Sep2010 to (Evaluate:20Kzx6726) Requested for: 07Jul2016; Last Rx:07Jul2016 Ordered 4. Fluticasone Propionate 50 MCG/ACT Nasal Suspension; INSTILL 1 SPRAY DAILY IN EACH NOSTRIL; Therapy: 17Apr2009 to (Evaluate:15Dec2016) Requested for: 59Ush0886; Last Rx:10Iqm4911 Ordered 5. Hydrocortisone 2.5 % External Cream; APPLY SPARINGLY TO AFFECTED AREA(S) TWICE DAILY; Therapy: 20Jul2015 to (Evaluate:28Jul2016) Requested for: 59Crm3679; Last Rx:36Mbc2652 Ordered 6. Loratadine 10 MG Oral Tablet; TAKE 1 TABLET BY MOUTH DAILY NEEDED; Therapy: 46Ijc2425 to (Evaluate:06Tuz1158) Requested for: 61Opw4529; Last Rx:23Vew9082 Ordered 7. Losartan Potassium 100 MG Oral Tablet; TAKE 1 TABLET BY MOUTH ONCE DAILY; Therapy: 79Esd0713 to (Evaluate:18Jul2017) Requested for: 23Jul2016; Last Rx:23Jul2016 Ordered 8. MetFORMIN HCl ER 500 MG Oral Tablet Extended Release 24 Hour; TAKE 4 TABLETS( 2000MG) BY MOUTH ONCE DAILY; Therapy: 02Qhr2207 to (Evaluate:25Jul2017) Requested for: 30Jul2016; Last Rx:30Jul2016 Ordered 9. One-Daily Multi Vitamins Oral Tablet; TAKE 1 TABLET DAILY; Therapy: (Recorded:23Jul2012) to Recorded 10. Simvastatin 20 MG Oral Tablet; TAKE ONE TABLET BY MOUTH DAILY; Therapy: 00Gzu4165 to (Evaluate:18Jul2017) Requested for: 23Jul2016; Last Rx:23Jul2016 [...] affect. Results/Data Mammo Screen Bilat - 2109 60Azi7610 11:12AM Cortney Chandra Test Name Result Flag [...] Author: MAME ISRAEL M.D. Basic Metabolic Panel 51Hzw0639 10:48AM Cortney Chandra Test Name Result Flag [...] Dioxide 21 mmol/L L 22-30 Hemoglobin A1C 30Xon4667 10:48AM Cortney Chandra Test Name Result Flag Reference Hemoglobin A1C 7.5 % H <5.7 Prediabetes 5.7% - 6.4% Diabetes >=6.5% Please note reference change as of 2015.. Estimated Average Glucose 169 mg/dl The eAG (estimated Average Glucose) is recommended by the [place] [employer] to assist with patient education during glucose monitoring. Lipid Panel 73Nga7782 10:48AM Cortney Chandra Test Name Result Flag Reference Cholesterol 166 mg/dl < 200 Triglycerides 144 mg/dl < 150 HDL 56 mg/dl 40 or > LDL - Calculated 81 mg/dl < 130 *L/H Ratio 1.5 1.0-4.7 TSH 77Rqq8533 10:48AM Cortney Chadnra Test Name Result Flag Reference TSH 0.804 uIU/ml 0.30-4.70 Vitamin D Total [facility] 80Ghl0180 10:48AM Cortney Chandra Test Name Result Flag Reference Vitamin D Total - [facility] 43.1 ng/ml 30-100 Deficiency <10ng/mL Insufficiency 10-29 ng/mL Sufficiency 30-100 ng/mL Possible Toxicity >100 ng/mL Microalbumin (Random) 31Nnh3146 10:48AM Cortney Chandra Test Name Result Flag Reference Microalbumin, Raw 6.9 mg/L < 20 Microalbumin/Creat Ratio 4.4 ug/mg < 30 ug Microalb/mg UA Creat Creat, Urine 155.4 mg/dl Signatures Electronically signed by : Cortney Chandra M.D.; Aug 26 2016 8:22AM ACCOUNTS SPECIALIST documented in this encounter Plan of Treatment Not on file documented as of this encounter Visit Diagnoses Not on filedocumented in this encounter Care Teams Religious Studies Professor Relationship Specialty Start Date End Date Unknown, Provider . HIRAM PEGUERO [id number] PCP - General 03/26/18 04/29/19 Cortney Chandra MD [address] [place] [address] PCP - General Family Medicine 04/30/19 Cortney Chandra MD [address] [place] [address] [place] [address] PCP Family Medicine 04/29/19 04/29/19 [facility] 03/30/23 Primary Eye Care 03/30/23 documented as of this encounter Additional Source Comments PLEASE NOTE: Replies to this message will not be received.[facility] and [facility]
--- OUTSIDE RECORDS SUMMARY | 2024-05-27 12:52 | XMS_ITS | Encounter Summary ---
Author Organization [employer] Address [address] [place] [address] Care Team Providers Care Telephone Order Clerk Name Role Phone Unknown, Provider Primary Care Provider Unavaila ble Cortney Chandra MD Unavailable [phone] Cortney Chandra MD Primary Care Provider [phone] Encounter Details Date Type Department Care Team (Late st Contact Info) Description 09/28/2018 Historical Conversion [facility] Family Medicine [address] [place] [address]. [place] [address] Cortney Chandra MD [address] [place] [address] Social History Tobacco Use Types [...] TABLET THREE TIMES DAILY; Therapy: 30Sep2010 to (Evaluate:33Owo5492) Requested for: 07Jul2016; Last Rx:07Jul2016 Ordered 3. Fluticasone Propionate 50 MCG/ACT Nasal Suspension; INSTILL 1 SPRAY DAILY IN EACH NOSTRIL; Therapy: 17Apr2009 to (Evaluate:14Apr2018) Requested for: 11Etn0993; Last Rx:16Oct2017 Ordered 4. Hydrocortisone 2.5 % External Cream; APPLY SPARINGLY TO AFFECTED AREA(S) TWICE DAILY; Therapy: 20Jul2015 to (Evaluate:19Qcf2118) Requested for: 10Sep2018; Last Rx:10Sep2018 Ordered 5. Loratadine 10 MG Oral Tablet; TAKE 1 TABLET BY MOUTH DAILY NEEDED; Therapy: 77Oss3781 to (Last Rx:10Sep2018) Requested for: 10Sep2018 Ordered 6. Losartan Potassium 100 MG Oral Tablet; TAKE 1 TABLET BY MOUTH ONCE DAILY; Therapy: 49Zjb8227 to (Evaluate:10Jul2019) Requested for: 15Jul2018; Last Rx:15Jul2018 Ordered 7. metFORMIN HCl ER 500 MG Oral Tablet Extended Release 24 Hour; TAKE 4 TABLETS( 2000MG) BY MOUTH ONCE DAILY; Therapy: 92Ciz3870 to (Evaluate:18Jul2019) Requested for: 23Jul2018; Last Rx:23Jul2018 Ordered 8. Pyridium 100 MG Oral Tablet; TAKE 1 TABLET 3 TIMES DAILY AFTER MEALS NEEDED; Therapy: 51Fnv9243 to (Last Rx:99Kem1156) Requested for: 57Isq5366 Ordered 9. Simvastatin 20 MG Oral Tablet; TAKE ONE TABLET BY MOUTH DAILY; Therapy: 79Jsk4861 to (Evaluate:10Jul2019) Requested for: 15Jul2018; Last Rx:15Jul2018 Ordered 10. Ventolin HFA 108 (90 Base) MCG/ACT Inhalation Aerosol Solution; INHALE 1 TO 2 PUFFS EVERY 4 TO 6 HOURS NEEDED; Therapy: 29Nvd4386 to (Last Rx:14Czj3074) Requested for: 52Zub3315 Ordered 11. Vision Vitamins Oral Tablet; TAKE 1 TABLET DAILY; Therapy: 28Sep2018 to Recorded 12. Vitamin D3 1000 UNIT Oral Tablet; takes 2 tablets daily; Therapy: (Recorded:02Fvf1599) to Recorded Allergies 1. Ultram TABS Vitals [...] External ears and nose are normal to inspection.\R\a8Msdtnldf membranes clear bilaterally.\R\b0Lips, teeth, and gum are normal, good dentition.\R\n7Qbutncdrhz is normal with no erythema, edema, exudate or lesions. Neck Neck is supple and symmetric. The trachea is midline with no masses.\R\v1Qiluas thyroid with no thyromegaly. Pulmonary Lungs are clear to auscultation. Cardiovascular Normal rate and rhythm, normal S1 and S2, no murmurs.\R\j7Yuaafkr pulses are 2+ bilaterally without bruit.\R\o0Mqlxszp pulses are 2+ bilaterally.\R\f3Ewkgx pulses are 2+ bilaterally.\R\b0No edema and/or varicosities. Chest Normal breasts with no dimpling or skin changes appreciated.\R\b0No breast or axillary massespalpated. Abdomen hemorrhoids noted, not acutely inflamed\R\b0Soft, non-tender with no masses.\R\b0No hepatosplenomegaly.\R\b0No hernia appreciated.\R\d1Zbycie sphincter tone, no masses. Genitourinary Normal external genitalia and vagina, no lesions appreciated.\R\p1Qifglk meatus with no discharge.\R\b0The bladder is not distended, no tenderness.\R\v1Pzcnkp is absent.\R\l7Sanzvs is ab sent.\R\l0Fmosbf/Parametria are normal, no masses or tenderness. Lymphatic No cervical lymphadenopathy.\R\b0No axillary lymphadenopathy.\R\b0No inguinal lymphadenopathy. Musculoskeletal Normal gait and station.\R\p9Klbyem muscle strength and tone. Skin Skin and subcutaneous tissue are normal without rashes or lesions.\R\w6Berlxh turgor. Neurologic Reflexes are 2+ and symmetric.\R\c4Slzbrk tactile sensation with monofilament testing throughout boot feet. Capillary refill findings were normal bilaterally. Psychiatric Good eye contact and answers questions appropriately.\R\m3Rilgslpiaxl mood and affect. Signatures Electronically signed by : Cortney Chandra M.D.; Oct 11 2018 7:23AM CHEMIST PHARMACEUTICAL documented in this encounter Plan of Treatment Not on file documented as of this encounter Visit Diagnoses Not on filedocumented in this encounter Care Teams Telephone Order Clerk Relationship Specialty Start Date End Date Unknown, Provider . HIARM PEGUERO [id number] PCP - General 03/26/18 04/29/19 Cortney Chandra MD [address] [place] [address] PCP - General Family Medicine 04/30/19 Cortney Chandra MD [address] [place] [address] PCP Family Medicine 04/29/19 04/29/19 [facility] 03/30/23 Primary Eye Care 03/30/23 documented as of this encounter Additional Source Comments PLEASE NOTE: Replies to this message will not be received.[facility] and [facility]
--- OUTSIDE RECORDS SUMMARY | 2024-05-27 12:52 | XMS_ITS | Encounter Summary ---
Author Organization [employer] Address [address] [place] [address] Care Team Providers Care Corporate Concierge Name Role Phone Unknown, Provider Primary Care Provider Unavaila ble Cortney Chandra MD Unavailable [phone] Cortney Chandra MD Primary Care Provider [phone] Encounter Details Date Type Department Care Team (Late st Contact Info) Description 09/01/2014 Historical Conversion [facility] Family Medicine [address] [place] [address]. 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 Aspirin 81 MG [...] BY MOUTH NEEDED; Therapy: 30Sep2010 to (Last Rx:60Crc2638) Requested for: 26Uwv0837 Ordered 5. Fluticasone Propionate 50 MCG/ACT Nasal Suspension; INSTILL 1 SPRAY DAILY IN EACH NOSTRIL; Therapy: 17Apr2009 to (Evaluate:81Lpa1504) Requested for: 09May2014; Last Rx:09May2014 Ordered 6. Hydrochlorothiazide 25 MG Oral Tablet; TAKE ONE TABLET EVERY MORNING; Therapy: 26May2008 to (Evaluate:11Smw2619) Requested for: 08Wgs8695; Last Rx:53Lcc6854 Ordered 7. Loratadine 10 MG Oral Tablet; TAKE 1 TABLET BY MOUTH DAILY NEEDED; Therapy: 24Egl4278 to (Evaluate:25Tiq5552) Requested for: 04Jun2014; Last Rx:04Jun2014 Ordered 8. Losartan Potassium 100 MG Oral Tablet; TAKE 1 TABLET BY MOUTH ONCE DAILY; Therapy: 40Zuf7491 to (Evaluate:73Dkd0668) Requested for: 13Feb2014; Last Rx:14Spg2061 Ordered 9. MetFORMIN HCl ER 500 MG Oral Tablet Extended Release 24 Hour; TAKE 4 TABLETS( 2000MG) BY MOUTH ONCE DAILY; Therapy: 10Zlm8668 to (Evaluate:93Uza3050) Requested for: 95Tvh3307; Last Rx:27Mxj5374 Ordered 10. One-Daily Multi Vitamins Oral Tablet; TAKE 1 TABLET DAILY; Therapy: (Recorded:23Jul2012) to Recorded 11. ProAir HFA 108 (90 Base) MCG/ACT Inhalation Aerosol Solution; INHALE 2 PUFFS EVERY 4 HOURS NEEDED FOR COUGHAND WHEEZE; Therapy: 26May2008 to (Last Rx:09May2014) Requested for: 09May2014 Ordered 12. Simvastatin 20 MG Oral Tablet; TAKE ONE TABLET BY MOUTH DAILY; Therapy: 70Bzq0859 to (Evaluate:04Dec2014) Requested for: 09Dec2013; Last Rx:09Dec2013 [...] Vital Signs [Data Includes: Current Encounter] Recorded: 04Qxc8065 08:19AM Blood Pressure 130 / 80, LUE, [...] all visit details. PLAN: As above. Cortney Cahndra M.D./lb-11 Assessment 1. Never smoked 2. 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 Controlled diabetes mellitus (250.00) (E11.9) 4. Encounter for preventive health examination (V70.0) (Z00.00) Signatures Electronically signed by : Cortney Chandra M.D.; Sep 15 2014 10:14AM TILE INSPECTOR documented in this encounter Plan of Treatment Not on file documented as of this encounter Visit Diagnoses Not on filedocumented in this encounter Care Teams Corporate Concierge Relationship Specialty Start Date End Date Unknown, Provider . HIRAM PEGUERO [id number] PCP - General 03/26/18 04/29/19 Cortney Chandra MD [address] [place] [address] PCP - General Family Medicine 04/30/19 Cortney Chandra MD [address] [place] [address] PCP Family Medicine 04/29/19 04/29/19 [facility] 03/30/23 Primary Eye Care 03/30/23 documented as of this encounter Additional Source Comments PLEASE NOTE: Replies to this message will not be received.[facility] and [facility]
--- OUTSIDE RECORDS SUMMARY | 2024-05-27 12:52 | XMS_ITS | Encounter Summary ---
Author Organization [employer] [facility] Address [address] [place] [address] Care Team Providers Care Field Sales Agent Name Role Phone Cortney Chandra MD Primary Care Provider [phone] Reason for Visit * Reason Onset Date Comments Questions 04/07/2024 Encounter Details Date Type Department Care Team (Late st Contact Info) Description 04/07/2024 Telephone [facility] [address] [place] [address] Cortney Chandra MD [address] [place] [address] Chief Comp: Questions Social History Tobacco Use Types Packs/Day Years Used Date Smoking Tobacco: Never Smokeless Tobacco: Never Alcohol Use Standard Drinks/Week Comments Never 0 (1 standard drink = 0.6 oz pur e alcohol) [facility] Utilities Answer Date Recorded In the past 12 months has [employer], gas, oil, or water [employer] threatened to shut off services in your [...] How often do you attend chur or protestant services? More than 4 times per year 08/15/2023 Do you belong to any clubs o r organizations such as orthodoxy groups, unions, fraternal or athletic groups, or [...] all 08/15/2023 [facility] - Occupational Stress [...] PM CDT To: Cortney Chandra Md Nurse [place] Subject: Call Back Fermin [facility]. Would like a call back at . Aware you will be in the office on Thursday. Thank you. documented in this encounter Plan of Treatment Not on file documented as of this encounter Visit Diagnoses Not on filedocumented in this encounter Care Teams Field Sales Agent Relationship Specialty Start Date End Date Cortney Chandra MD [address] [place] [address] PCP - General Family Medicine 04/30/19 [facility] 03/30/23 Primary Eye Care 03/30/23 documented as of this encounter Additional Source Comments PLEASE NOTE: Replies to this message will not be received.[facility] and [facility]
--- OUTSIDE RECORDS SUMMARY | 2024-05-27 12:52 | XMS_ITS | Encounter Summary ---
Author Organization [employer] Address [address] [place] [address] Care Team Providers Care Partition Setter Name Role Phone Unknown, Provider Primary Care Provider Unavaila ble Cortney Chandra MD Unavailable [phone] Cortney Chandra MD Primary Care Provider [phone] Encounter Details Date Type Department Care Team (Late st Contact Info) Description 07/20/2015 Historical Conversion [facility] Family Medicine [address] [place] [address]. [place] [address] Cortney Chandra MD [address] [place] [address] Social History Tobacco Use Types Packs/Day Years Used Date Smoking Tobacco: Never Assessed Sex and Gender Information Value Date Recorded Sex Assigned at Not on file Gender Identity Female 01/16/2023 2:23 PM CDT Sexual Orientation Not on file documented as of this encounter Last Filed Vital Signs Vital Sign Reading Time Taken Comments Blood Pressure 132/76 07/20/2015 12:00 AM SECOND WATCH SERGEANT Pulse - - Temperature - - Respiratory Rate - - Oxygen Saturation - - Inhaled Oxygen Concentration - - Weight 87.1 kg (192 lb 0.3 oz) 07/20/2015 12:00 AM SECOND WATCH SERGEANT Height 164 cm (5' 4.57) 07/20/2015 12:00 AM SECOND WATCH SERGEANT Body Mass Index 32.79 07/20/2015 12:00 AM SECOND WATCH SERGEANT documented in this encounter Plan of Treatment Not on file documented as of this encounter Visit Diagnoses Not on filedocumented in this encounter Care Teams Partition Setter Relationship Specialty Start Date End Date Unknown, Provider . HIRAM PEGUERO [id number] PCP - General 03/26/18 04/29/19 Cortney Chandra MD [address] [place] [address] PCP - General Family Medicine 04/30/19 Cortney Chandra MD [address] [place] [address] PCP Family Medicine 04/29/19 04/29/19 [facility] 03/30/23 Primary Eye Care 03/30/23 documented as of this encounter Additional Source Comments PLEASE NOTE: Replies to this message will not be received.[facility] and [facility]
--- OUTSIDE RECORDS SUMMARY | 2024-05-27 12:52 | XMS_ITS | Encounter Summary ---
Author Organization [employer] Address [address] [place] [address] Care Team Providers Care Bending Press Operator Name Role Phone Unknown, Provider Primary Care Provider Unavaila ble Cortney Chandra MD Unavailable [phone] Cortney Chandra MD Primary Care Provider [phone] Encounter Details Date Type Department Care Team (Late st Contact Info) Description 09/01/[address] [facility] Family Medicine [address] [place] [address]. [place] [address] Cortney Chandra MD [address] [place] [address] Social History Tobacco Use Types Packs/Day Years Used Date Smoking Tobacco: Never Assessed Sex and Gender Information Value Date Recorded Sex Assigned at Not on file Gender Identity Female 01/16/2023 2:23 PM CDT Sexual Orientation Not on file documented as of this encounter Last Filed Vital Signs Vital Sign Reading Time Taken Comments Blood Pressure 130/80 09/01/2014 12:00 AM MATERIAL CONTROL CLERK Pulse - - Temperature - - Respiratory Rate - - Oxygen Saturation - - Inhaled Oxygen Concentration - - Weight 85.7 kg (189 lb) 09/01/2014 12:00 AM MATERIAL CONTROL CLERK Height 163.8 cm (5' 4.5) 09/01/2014 12:00 AM CS T Body Mass Index 31.94 09/01/2014 12:00 AM MATERIAL CONTROL CLERK documented in this encounter Plan of Treatment Not on file documented as of this encounter Visit Diagnoses Not on filedocumented in this encounter Care Teams Bending Press Operator Relationship Specialty Start Date End Date Unknown, Provider . HIRAM PEGUERO [id number] PCP - General 03/26/18 04/29/19 Cortney Chandra MD [address] [place] [address] PCP - General Family Medicine 04/30/19 Cortney Chandra MD [address] [place] [address] PCP Family Medicine 04/29/19 04/29/19 [facility] 03/30/23 Primary Eye Care 03/30/23 documented as of this encounter Additional Source Comments PLEASE NOTE: Replies to this message will not be received.[facility] and [facility]
--- OUTSIDE RECORDS SUMMARY | 2024-05-27 12:52 | XMS_ITS | Encounter Summary ---
Author Organization [employer] Address [address] [place] [address] Care Team Providers Care Hot Header Operator Name Role Phone Unknown, Provider Primary Care Provider Unavaila Cortney Gomez MD Unavailable [phone] Cortney Chandra MD Primary Care Provider [phone] Encounter Details Date Type Department Care Team (Late st Contact Info) Description 03/26/2018 Historical Conversion [facility] Family Medicine [address] [place] [address]. [place] [address] Angeles Hartman, CHALINO,HEAD OF TALENT MANAGEMENT [address] [place] [address] Social History Tobacco Use Types Packs/Day Years Used Date Smoking Tobacco: Never Assessed Sex and Gender Information Value Date Recorded Sex Assigned at Not on file Gender Identity Female 01/16/2023 2:23 PM CDT Sexual Orientation Not on file documented as of this encounter Progress Notes * Angeles Hartman, CHALINO,HEAD OF TALENT MANAGEMENT - 03/26/2018 12:00 AM CDT Assessment 1. [...] or if you almost fall.; Status:Complete; Done: [id number] At your visit today we screened for [...] or seek medical attention immediately.; Status:Complete; Done: 82Ean6679 Dystrophic nail, Onychomycosis Fungus Culture (Skin.Hair,Nails ONLY); Status:Active; Requested for:59Rfh6825; culture skin source : left thumb nail SocHx: Never smoked Never Smoked: Since tobacco use can have significant health risks, you are helping yourself and others stay healthy by never smoking.; Status:Complete; Done: 07Efg2076 Reason For Visit Discoloration of finger nails [...] Aspirin 81 MG TABS; ONE DAILY; Last Rx:18Ibo2549 Ordered 2. Cheratussin AC 100-10 MG/5ML Oral Syrup; TAKE 10 ML EVERY 4 TO 6 HOURS NEEDED; Therapy: 05Oct2012 to (Evaluate:91Lgu1999); Last Rx:83Cpv4443 Ordered 3. Cyclobenzaprine HCl - 10 MG Oral Tablet; TAKE 1/2 TO 1 TABLET THREE TIMES DAILY; Therapy: 30Sep2010 to (Evaluate:75Kso3394) Requested for: 07Jul2016; Last Rx:07Jul2016 Ordered 4. Fluticasone Propionate 50 MCG/ACT Nasal Suspension; INSTILL 1 SPRAY DAILY IN EACH NOSTRIL; Therapy: 17Apr2009 to (Evaluate:14Apr2018) Requested for: 16Oct2017; Last Rx:16Oct2017 Ordered 5. Hydrocortisone 2.5 % External Cream; APPLY SPARINGLY TO AFFECTED AREA(S) TWICE DAILY; Therapy: 20Jul2015 to (Evaluate:79Hjs9858) Requested for: 17Jul2017; Last Rx:17Jul2017 Ordered 6. Loratadine 10 MG Oral Tablet; TAKE 1 TABLET BY MOUTH DAILY NEEDED; Therapy: 90Xjr0647 to (Evaluate:12Sep2018) Requested for: 17Sep2017; Last Rx:17Sep2017 Ordered 7. Losartan Potassium 100 MG Oral Tablet; TAKE 1 TABLET BY MOUTH ONCE DAILY; Therapy: 84Dwj6414 to (Evaluate:12Jul2018) Requested for: 17Jul2017; Last Rx:17Jul2017 Ordered 8. MetFORMIN HCl ER 500 MG Oral Tablet Extended Release 24 Hour; TAKE 4 TABLETS( 2000MG) BY MOUTH ONCE DAILY; Therapy: 11Heo7486 to (Evaluate:12Jul2018) Requested for: 17Jul2017; Last Rx:17Jul2017 Ordered 9. One-Daily Multi Vitamins Oral Tablet; TAKE 1 TABLET DAILY; Therapy: (Recorded:23Jul2012) to Recorded 10. Simvastatin 20 MG Oral Tablet; TAKE ONE TABLET BY MOUTH DAILY; Therapy: 08Mne3094 to (Evaluate:12Jul2018) Requested for: 17Jul2017; Last Rx:17Jul2017 Ordered 11. Ventolin HFA 108 (90 Base) MCG/ACT Inhalation Aerosol Solution; INHALE 1 TO 2 PUFFS EVERY 4 TO 6 HOURS NEEDED; Therapy: 06Mar2017 to (Last Rx:06Mar2017) Requested for: 06Mar2017 Ordered 12. Vitamin D3 1000 UNIT Oral Tablet; takes 2 tablets daily; Therapy: (Recorded:89Ldn6991) to Recorded Allergies 1. Ultram TABS Vitals [...] other 8 fingers are covered with nail malay but the 2 thumbs show blackdiscoloration under [...] Electronically signed by : Angeles Hartman RN HEAD OF TALENT MANAGEMENT RN,HEAD OF TALENT MANAGEMENT; Mar 26 2018 1:29PM TEST RACK OPERATOR documented in this encounter Plan of Treatment Not on file documented as of this encounter Visit Diagnoses Not on filedocumented in this encounter Care Teams Hot Header Operator Relationship Specialty Start Date End Date Unknown, Provider . HIRAM PEGUERO [id number] PCP - General 03/26/18 04/29/19 Cortney Chandra MD [address] [place] [address] PCP - General Family Medicine 04/30/19 Cortney Chandra MD [address] [place] [address] PCP Family Medicine 04/29/19 04/29/19 [facility] 03/30/23 Primary Eye Care 03/30/23 documented as of this encounter Additional Source Comments PLEASE NOTE: Replies to this message will not be received.[facility] and [facility]
--- OUTSIDE RECORDS SUMMARY | 2024-05-27 12:52 | XMS_ITS | Encounter Summary ---
Author Organization [employer] Address [address] [place] [address] Care Team Providers Care Equal Opportunity Specialist Name Role Phone Cortney Chandra MD Primary Care Provider [phone] Reason for Visit * Reason Onset Date Comments Refill Request 02/19/2024 Encounter Details Date Type Department Care Team ([facility] st Contact Info) Description 02/19/2024 Refill [facility] Medicine [address] [place] [address] Cortney Chandra MD [address] [place] [address] Dx: Type 2 diabetes mellitus with stage 1 chronic kidney disease, without long-term current use of insulin (HCC) (Primary Dx) Social History Tobacco Use Types Packs/Day Years Used Date Smoking Tobacco: Never Smokeless Tobacco: Never Alcohol Use Standard Drinks/Week Comments Never 0 (1 standard drink = 0.6 oz pur e alcohol) [facility] Utilities Answer Date Recorded In the past [...] any clubs o r organizations such as worship groups, unions, fraternal or athletic groups, or [...] Primary documented in this encounter Care Teams Equal Opportunity Specialist Relationship Specialty Start Date End Date Cortney Chandra MD [address] [place] [address] PCP - General Family Medicine 04/30/19 [facility] 03/30/23 Primary Eye Care 03/30/23 documented as of this encounter Additional Source Comments PLEASE NOTE: Replies to this message will not be received.[facility] and [facility]
--- OUTSIDE RECORDS SUMMARY | 2024-05-27 12:52 | XMS_ITS | Encounter Summary ---
Author Organization [employer] Address [address] [place] [address] Care Team Providers Care Alemite Operator Name Role Phone Cortney Chandra MD Primary Care Provider [phone] Reason for Visit * Reason Comments Refill Request Encounter Details Date Type Department Care Team (Late st Contact Info) Description 03/01/2024 Refill [facility] Medicine [address] [place], [place] [id number] Cortney Chandra MD [address] [place] [address] Dx: Essential hypertension (Primary Dx) Social History Tobacco Use Types Packs/Day Years Used Date Smoking Tobacco: Never Smokeless Tobacco: Never Alcohol Use Standard Drinks/Week Comments Never 0 (1 standard drink = 0.6 oz pur e alcohol) [facility] Utilities Answer Date Recorded In the past 12 months has [facility] [employer], gas, oil, or water [employer] threatened to shut off services in your [...] How often do you attend chur or jain services? More than 4 times per year 08/15/2023 Do you belong to any clubs o r organizations such as adventist groups, unions, fraternal or athletic groups, or [...] and heating? Not hard at all 08/15/2023 [facility] [...] hypertension documented in this encounter Care Teams Alemite Operator Relationship Specialty Start Date End Date Cortney Chandra MD [address] [place] [address] PCP - General Family Medicine 04/30/19 [facility] 03/30/23 Primary Eye Care 03/30/23 documented as of this encounter Additional Source Comments PLEASE NOTE: Replies to this message will not be received.[facility] and [facility]
--- OUTSIDE RECORDS SUMMARY | 2024-05-27 12:52 | XMS_ITS | Encounter Summary ---
Author Organization [employer] Address [address] [place] [address] Care Team Providers Care Pump House Engineer Name Role Phone Unknown, Provider Primary Care Provider UnavailCortney Dye MD Unavailable [phone] Cortney Chandra MD Primary Care Provider [phone] Encounter Details Date Type Department Care Team (Late st Contact Info) Description 09/03/2017 Historical Conversion [facility] Family Medicine [address] [facility] [place] [address] Rosemary Aquino APRN,EAR PULL MACHINE OPERATOR [address] [place] [address] Social History Tobacco Use Types Packs/Day Years Used Date Smoking Tobacco: Never Assessed Sex and Gender Information Value Date Recorded Sex Assigned at Not on file Gender Identity Female 01/16/2023 2:23 PM CDT Sexual Orientation Not on file documented as of this encounter Progress Notes * Rosemary Aquino, CHALINO,EAR PULL MACHINE OPERATOR - 09/03/2017 12:00 AM CST Assessment [...] TO 6 HOURS NEEDED; Therapy: 05Oct2012 to (Evaluate:18Eje0739); Last Rx:08Aug2016 Ordered 3. Cyclobenzaprine HCl - 10 MG Oral Tablet; TAKE 1/2 TO 1 TABLET THREE TIMES DAILY; Therapy: 30Sep2010 to (Evaluate:90Aju9256) Requested for: 07Jul2016; Last Rx:07Jul2016 Ordered 4. Fluticasone Propionate 50 MCG/ACT Nasal Suspension; INSTILL 1 SPRAY DAILY IN EACH NOSTRIL; Therapy: 17Apr2009 to (Evaluate:15Dec2016) Requested for: 83Twm2932; Last Rx:72Rzt0832 Ordered 5. Hydrocortisone 2.5 % External Cream; APPLY SPARINGLY TO AFFECTED AREA(S) TWICE DAILY; Therapy: 20Jul2015 to (Evaluate:03Mky4753) Requested for: 17Jul2017; Last Rx:17Jul2017 Ordered 6. Loratadine 10 MG Oral Tablet; TAKE 1 TABLET BY MOUTH DAILY NEEDED; Therapy: 45Vro9066 to (Evaluate:12Sep2017) Requested for: 17Sep2016; Last Rx:17Sep2016 Ordered 7. Losartan Potassium 100 MG Oral Tablet; TAKE 1 TABLET BY MOUTH ONCE DAILY; Therapy: 11Pta8598 to (Evaluate:12Jul2018) Requested for: 17Jul2017; Last Rx:17Jul2017 Ordered 8. MetFORMIN HCl ER 500 MG Oral Tablet Extended Release 24 Hour; TAKE 4 TABLETS( 2000MG) BY MOUTH ONCE DAILY; Therapy: 78Hih6681 to (Evaluate:12Jul2018) Requested for: 17Jul2017; Last Rx:17Jul2017 Ordered 9. One-Daily Multi Vitamins Oral Tablet; TAKE 1 TABLET DAILY; Therapy: (Recorded:23Jul2012) to Recorded 10. Simvastatin 20 MG Oral Tablet; TAKE ONE TABLET BY MOUTH DAILY; Therapy: 14Dky8096 to (Evaluate:12Jul2018) Requested for: 17Jul2017; Last Rx:17Jul2017 [...] Electronically signed by : Rosemary Aquino RN EAR PULL MACHINE OPERATOR RN,EAR PULL MACHINE OPERATOR; Sep 03 2017 5:41PM GRINDER Electronically signed by Rosemary Aquino, DIMENSION SPECIFICATION INSPECTOR,EAR PULL MACHINE OPERATOR at 11/25/2018 5:37 PM CDT documented in this encounter Plan of Treatment Not on file documented as of this encounter Visit Diagnoses Not on filedocumented in this encounter Care Teams Pump House Engineer Relationship Specialty Start Date End Date Unknown, Provider . HIRAM PEGUERO [id number] PCP - General 03/26/18 04/29/19 Cortney Chandra MD [address] [place] [place] [address] PCP - General Family Medicine 04/30/19 Cortney Chandra MD [address] [place] [place] [address] PCP Family Medicine 04/29/19 04/29/19 [facility] 03/30/23 Primary Eye Care 03/30/23 documented as of this encounter Additional Source Comments PLEASE NOTE: Replies to this message will not be received.[facility] and [facility]
--- OUTSIDE RECORDS SUMMARY | 2024-05-27 12:52 | XMS_ITS | Encounter Summary ---
Author Organization [employer] Address [address] [place] [address] Care Team Providers Care Raker Buffing Wheel Name Role Phone Unknown, Provider Primary Care Provider Unavaila ble Cortney Chandra MD Unavailable [phone] Cortney Chandra MD Primary Care Provider [phone] Encounter Details Date Type Department Care Team (Late st Contact Info) Description 09/25/2017 Historical Conversion [facility] Family Medicine [address] [place] [address]. [place] [address] Cortney Chandra MD [address] [place] [address] Social History Tobacco Use Types [...] For Visit [facility]. [facility] History of Present Illness Sumaya is here for annual HCM exam along with Medicare wellness. She has a hx of type 2 DM, hyperlipidemia and HTN. She is doing well. She notes some join and back discomfort off and on but does notwant to do anything about it. She is still working casual as an [employer] and still enjoys this. Her asthma and [...] Aspirin 81 MG TABS; ONE DAILY; Last Rx:00Ror0486 Ordered 2. Cheratussin AC 100-10 MG/5ML Oral Syrup; TAKE 10 ML EVERY 4 TO 6 HOURS NEEDED; Therapy: 05Oct2012 to (Evaluate:30Uws4756); Last Rx:94Xvl3307 Ordered 3. Cyclobenzaprine HCl - 10 MG Oral Tablet; TAKE 1/2 TO 1 TABLET THREE TIMES DAILY; Therapy: 30Sep2010 to (Evaluate:55Fci9543) Requested for: 07Jul2016; Last Rx:07Jul2016 Ordered 4. Fluticasone Propionate 50 MCG/ACT Nasal Suspension; INSTILL 1 SPRAY DAILY IN EACH NOSTRIL; Therapy: 17Apr2009 to (Evaluate:15Dec2016) Requested for: 76Ihv6894; Last Rx:48Rez2783 Ordered 5. Hydrocortisone 2.5 % External Cream; APPLY SPARINGLY TO AFFECTED AREA(S) TWICE DAILY; Therapy: 20Jul2015 to (Evaluate:25Lnw5285) Requested for: 17Jul2017; Last Rx:17Jul2017 Ordered 6. Loratadine 10 MG Oral Tablet; TAKE 1 TABLET BY MOUTH DAILY NEEDED; Therapy: 64Mur2191 to (Evaluate:12Sep2018) Requested for: 17Sep2017; Last Rx:17Sep2017 Ordered 7. Losartan Potassium 100 MG Oral Tablet; TAKE 1 TABLET BY MOUTH ONCE DAILY; Therapy: 39Qte7734 to (Evaluate:12Jul2018) Requested for: 17Jul2017; Last Rx:17Jul2017 Ordered 8. MetFORMIN HCl ER 500 MG Oral Tablet Extended Release 24 Hour; TAKE 4 TABLETS( 2000MG) BY MOUTH ONCE DAILY; Therapy: 85Jnf9014 to (Evaluate:12Jul2018) Requested for: 17Jul2017; Last Rx:17Jul2017 Ordered 9. One-Daily Multi Vitamins Oral Tablet; TAKE 1 TABLET DAILY; Therapy: (Recorded:23Jul2012) to Recorded 10. Simvastatin 20 MG Oral Tablet; TAKE ONE TABLET BY MOUTH DAILY; Therapy: 20Huk3860 to (Evaluate:12Jul2018) Requested for: 17Jul2017; Last Rx:17Jul2017 Ordered 11. Ventolin HFA 108 (90 Base) MCG/ACT Inhalation Aerosol Solution; INHALE 1 TO 2 PUFFS EVERY 4 TO 6 HOURS NEEDED; Therapy: 91Hgp3121 to (Last Rx:56But4166) Requested for: 08Gfp0371 Ordered 12. Vitamin D3 1000 UNIT Oral Tablet; takes 2 tablets daily; Therapy: (Recorded:46Tli7376) to Recorded Allergies 1. Ultram TABS Vitals [...] Cortney Chandra M.D.; Oct 05 2017 8:00AM MANAGER CONFIGURATION documented in this encounter Plan of Treatment Not on file documented as of this encounter Visit Diagnoses Not on filedocumented in this encounter Care Teams Raker Buffing Wheel Relationship Specialty Start Date End Date Unknown, Provider . HIRAM PEGUERO [address] PCP - General 03/26/18 04/29/19 Cortney Chandra MD [address] [place] [address] PCP - General Family Medicine 04/30/19 Cortney Chandra MD [address] [place] [address] PCP Family Medicine 04/29/19 04/29/19 [facility] 03/30/23 Primary Eye Care 03/30/23 documented as of this encounter Additional Source Comments PLEASE NOTE: Replies to this message will not be received.[facility] and [facility]
--- OUTSIDE RECORDS SUMMARY | 2024-05-27 12:52 | XMS_ITS | Encounter Summary ---
Author Organization [employer] Address [address] [place] [address] Care Team Providers Care Personal Trainer Name Role Phone Unknown, Provider Primary Care Provider Unavaila ble Cortney Chandra MD Unavailable [phone] Cortney Chandra MD Primary Care Provider [phone] Encounter Details Date Type Department Care Team (Late st Contact Info) Description 11/18/2013 Historical Conversion [facility] Family Medicine [address] [place] [address] [place] [address] Cortney Chandra MD [address] [place] [address] Social History Tobacco Use Types [...] Encounter] Recorded by : Marya Lyons at 11Rpt7289 10:47AM Blood Pressure 118 / 70, LUE, [...] on filedocumented in this encounter Care Teams Personal Trainer Relationship Specialty Start Date End Date Unknown, Provider . HIRAM PEGUERO [address] PCP - General 03/26/18 04/29/19 Cortney Chandra MD [address] [place] [address] PCP - General Family Medicine 04/30/19 Cortney Chandra MD [address] [place] [address] PCP Family Medicine 04/29/19 04/29/19 [facility] 03/30/23 Primary Eye Care 03/30/23 documented as of this encounter Additional Source Comments PLEASE NOTE: Replies to this message will not be received.[facility] and [facility]
--- OUTSIDE RECORDS SUMMARY | 2024-05-27 12:52 | XMS_ITS | Continuity of Care Document ---
Author Organization [facility] Address [address] [place] [address] Phone Care Team Providers Care Metal Window Screen Assembler Name Role Phone Farooq LOZADA, PhD, Joaquim Unavailable Unavai lable Allergies, Adverse Reactions, Alerts Substance Reaction Status Criticality No Known Allergies Active No Inform ation Medications Medication Instructions Dosage Effective Dates (start - stop) Status Comments SIMVASTATIN (unknown strength) Not Available - Active LAXATIVE (unknown strength) Not Available - Active PREDNISONE (unknown strength) Not Available - Active OXYCODONE HCL (unknown strength) Not Available - Active OMEPRAZOLE (unknown strength) Not Available - Active METFORMIN HCL (unknown strength) Not Available - Active METAMUCIL (unknown strength) Not Available - Active METHYL B-12 (unknown strength) Not Available - Active LOSARTAN POTASSIUM (unknown strength) Not Available - Active FOLIC ACID (unknown strength) Not Available - Active ESCITALOPRAM OXALATE (unknown strength) Not Available - Active BISACODYL (unknown strength) Not Available - Active ALENDRONATE SODIUM (unknown strength) Not Available - Active ACETAMINOPHEN (unknown strength) Not Available - Active TUBERCULIN SYRINGE (unknown strength) Not Available - No Longer Active Procedures Procedure Date Office/Outpatient Visit,New, Mod 2023 Office/Outpatient Visit,New, Mod 2023 Advance Directives Directive Yes / No Effective Date File Name No Information Encounters Encounter Description Practice Location Reason(s) For Visit Diagnoses Date Provider Providers Copied on Encounter Office/Outpati ent Visit,New, Mod [facility] , [address], [place], [place], [id number], tel:[phone] [facility] Radiculopat hy, lumbar region Farooq March. [facility], [address], [place], [address], [place]. tel:[phone] Referring Provider: Joaquim Trivedi, [facility] [address], [place], [address]. tel:[phone] Family History Family Member Type Diagnosis Age At Onset Sister Problem (finding) Diabetes mellitus Payers Payer name Insurance type Covered alliance party ID Authoriza radha(s) [employer] Medicare [facility] CI [id number] Social History Type Description Quantity Date [...]
--- OUTSIDE RECORDS SUMMARY | 2024-05-27 12:52 | XMS_ITS | Encounter Summary ---
Author Organization [employer] Address [address] [place] [address] Care Team Providers Care Crewman Armoured Personnel Carrier M113 Name Role Phone Unknown, Provider Primary Care Provider UnavailCortney Dye MD Unavailable [phone] Cortney Chandra MD Primary Care Provider [phone] Encounter Details Date Type Department Care Team (Late st Contact Info) Description 12/25/2016 Historical Conversion [facility] Family Medicine [address] [place] [address]. [place] [address] Social History Tobacco Use Types Packs/Day Years [...] Body Mass Index 31.77 08/19/2016 12:00 AM PUMPER GAUGER documented in this encounter Plan of Treatment Not on file documented as of this encounter Visit Diagnoses Not on filedocumented in this encounter Care Teams Crewman Armoured Personnel Carrier M113 Relationship Specialty Start Date End Date Unknown, [place] [address] PCP - General 03/26/18 04/29/19 Cortney Chandra MD [address] [place] [address] PCP - General Family Medicine 04/30/19 Cortney Chandra MD [address] [place] [address] PCP Family Medicine 04/29/19 04/29/19 [facility] 03/30/23 Primary Eye Care 03/30/23 documented as of this encounter Additional Source Comments PLEASE NOTE: Replies to this message will not be received.[facility] and [facility]
--- OUTSIDE RECORDS SUMMARY | 2024-05-27 12:52 | XMS_ITS | Encounter Summary ---
Author Organization [employer] Address [address] [place] [address] Care Team Providers Care Pizza Driver Name Role Phone Unknown, Provider Primary Care Provider Unavaila Cortney Gomez MD Unavailable Cortney Chandra MD Primary Care Provider [phone] Encounter Details Date Type Department Care Team (Late st Contact Info) Description 06/14/2018 Historical Conversion [facility] Family Medicine [address] [facility] [place] [address] Rosemary Aquino APRN,ASSEMBLER INSTALLER STRUCTURES [address] [place] [address] Social History Tobacco Use Types Packs/Day Years Used Date Smoking Tobacco: Never Assessed Sex and Gender Information Value Date Recorded Sex Assigned at Not on file Gender Identity Female 01/16/2023 2:23 PM CDT Sexual Orientation Not on file documented as of this encounter Progress Notes * Rosemary Aquino, CHALINO,ASSEMBLER INSTALLER STRUCTURES - 06/14/2018 12:00 AM CST Assessment 1. [...] UA - Culture if Indicated; Status:Complete; Done: 84Btj9011 09:17AM Reason For Visit Patient in with [...] TABLET THREE TIMES DAILY; Therapy: 30Sep2010 to (Evaluate:63Wov3751) Requested for: 07Jul2016; Last Rx:07Jul2016 Ordered 3. Fluticasone Propionate 50 MCG/ACT Nasal Suspension; INSTILL 1 SPRAY DAILY IN EACH NOSTRIL; Therapy: 17Apr2009 to (Evaluate:14Apr2018) Requested for: 16Oct2017; Last Rx:16Oct2017 Ordered 4. Hydrocortisone 2.5 % External Cream; APPLY SPARINGLY TO AFFECTED AREA(S) TWICE DAILY; Therapy: 20Jul2015 to (Evaluate:62Cqr9006) Requested for: 17Jul2017; Last Rx:17Jul2017 Ordered 5. Loratadine 10 MG Oral Tablet; TAKE 1 TABLET BY MOUTH DAILY NEEDED; Therapy: 12Bnx4332 to (Evaluate:12Sep2018) Requested for: 17Sep2017; Last Rx:17Sep2017 Ordered 6. Losartan Potassium 100 MG Oral Tablet; TAKE 1 TABLET BY MOUTH ONCE DAILY; Therapy: 39Bzq8896 to (Evaluate:12Jul2018) Requested for: 17Jul2017; Last Rx:17Jul2017 Ordered 7. MetFORMIN HCl ER 500 MG Oral Tablet Extended Release 24 Hour; TAKE 4 TABLETS( 2000MG) BY MOUTH ONCE DAILY; Therapy: 12Eoz9793 to (Evaluate:12Jul2018) Requested for: 17Jul2017; Last Rx:17Jul2017 Ordered 8. One-Daily Multi Vitamins Oral Tablet; TAKE 1 TABLET DAILY; Therapy: (Recorded:23Jul2012) to Recorded 9. Simvastatin 20 MG Oral Tablet; TAKE ONE TABLET BY MOUTH DAILY; Therapy: 51Ked8238 to (Evaluate:12Jul2018) Requested for: 17Jul2017; Last Rx:17Jul2017 Ordered 10. Ventolin HFA 108 (90 Base) MCG/ACT Inhalation Aerosol Solution; INHALE 1 TO 2 PUFFS EVERY 4 TO 6 HOURS NEEDED; Therapy: 06Mar2017 to (Last Rx:06Mar2017) Requested for: 06Mar2017 Ordered 11. Vitamin D3 1000 UNIT Oral Tablet; takes 2 tablets daily; Therapy: (Recorded:23Quc2226) to Recorded Allergies 1. Ultram TABS Vitals [...] Electronically signed by : Rosemary Aquino, RN ASSEMBLER INSTALLER STRUCTURES RN,ASSEMBLER INSTALLER STRUCTURES; Jun 14 2018 12:24PM AUTOMOTIVE DESIGNER Electronically signed by : Klever Nicole M.D.; Jul 15 2018 3:46PM AUTOMOTIVE DESIGNER documented in this encounter Plan of Treatment Not on file documented as of this encounter Visit Diagnoses Not on filedocumented in this encounter Care Teams Pizza Driver Relationship Specialty Start Date End Date Unknown, Provider . HIRAM PEGUERO [address] PCP - General 03/26/18 04/29/19 Cortney Chandra MD [address] [place] [address] PCP - General Family Medicine 04/30/19 Cortney Chandra MD [address] [place] [address] PCP Family Medicine 04/29/19 04/29/19 [facility] 03/30/23 Primary Eye Care 03/30/23 documented as of this encounter Additional Source Comments PLEASE NOTE: Replies to this message will not be received.[facility] and [facility]
--- OUTSIDE RECORDS SUMMARY | 2024-05-27 12:52 | XMS_ITS | Encounter Summary ---
Author Organization [employer] Address [address] [place] [address] Care Team Providers Care Hospice Bereavement Coordinator Name Role Phone Unknown, Provider Primary Care Provider Unavaila Cortney Gomez MD Unavailable [phone] Cortney Chandra MD Primary Care Provider [phone] Encounter Details Date Type Department Care Team (Late st Contact Info) Description 03/07/2016 Historical Conversion [facility] Family Medicine [address] [place] [address] Rosalia Lopez MD Social History Tobacco Use [...] CDT DERMATOLOGY OCTAVIO GALVAN : 1950 HX: [id number] DOS: 03/07/2016 CHIEF COMPLAINT: History of squamous [...] ineffective. Rosalia Lopez M.D./la-7 cc: Cortney Chandra M.D./[facility] Electronically signed by:Rosalia Lopez M.D. Mar 13 2016 8:17AM JAVA J2EE SOFTWARE ENGINEER documented in this encounter Plan of Treatment Not on file documented as of this encounter Visit Diagnoses Not on filedocumented in this encounter Care Teams Hospice Bereavement Coordinator Relationship Specialty Start Date End Date Unknown, Provider . HIRAM PEGUERO [address] PCP - General 03/26/18 04/29/19 Cortney Chandra MD [address] [place] [address] PCP - General Family Medicine 04/30/19 Cortney Chandra MD [address] [place] [address] PCP Family Medicine 04/29/19 04/29/19 [facility] 03/30/23 Primary Eye Care 03/30/23 documented as of this encounter Additional Source Comments PLEASE NOTE: Replies to this message will not be received.[facility] and [facility]
--- OUTSIDE RECORDS SUMMARY | 2024-05-27 12:52 | XMS_ITS | Encounter Summary ---
Author Organization [email or web address] Address [address] [place] [address] Care Team Providers Care Wilderness Guide Name Role Phone Unknown, Provider Primary Care Provider Unavaila ble Cortney Chandra MD Unavailable [phone] Cortney Chandra MD Primary Care Provider [phone] Encounter Details Date Type Department Care Team (Late st Contact Info) Description 08/30/2018 Historical Conversion [facility] Family Medicine [address] [place] [address] [place] [address] Cortney Chandra MD [address] [place] [address] Social History Tobacco Use Types [...] Plan Orders Fatigue Drawing Fee; Status:Complete; Done: [id number] Reason For Visit Pt. presents today for [...] Aspirin 81 MG TABS; ONE DAILY; Last Rx:[id number] Ordered 2. Cyclobenzaprine HCl - 10 MG Oral Tablet; TAKE 1/2 TO 1 TABLET THREE TIMES DAILY; Therapy: 30Sep2010 to (Evaluate:38Bst0578) Requested for: 07Jul2016; Last Rx:07Jul2016 Ordered 3. Fluticasone Propionate 50 MCG/ACT Nasal Suspension; INSTILL 1 SPRAY DAILY IN EACH NOSTRIL; Therapy: 17Apr2009 to (Evaluate:14Apr2018) Requested for: 16Oct2017; Last Rx:16Oct2017 Ordered 4. Hydrocortisone 2.5 % External Cream; APPLY SPARINGLY TO AFFECTED AREA(S) TWICE DAILY; Therapy: 20Jul2015 to (Evaluate:94Xwy0590) Requested for: 17Jul2017; Last Rx:17Jul2017 Ordered 5. Loratadine 10 MG Oral Tablet; TAKE 1 TABLET BY MOUTH DAILY NEEDED; Therapy: 73Gkx5195 to (Evaluate:12Sep2018) Requested for: 17Sep2017; Last Rx:17Sep2017 Ordered 6. Losartan Potassium 100 MG Oral Tablet; TAKE 1 TABLET BY MOUTH ONCE DAILY; Therapy: 04Wqp9658 to (Evaluate:10Jul2019) Requested for: 15Jul2018; Last Rx:15Jul2018 Ordered 7. metFORMIN HCl ER 500 MG Oral Tablet Extended Release 24 Hour; TAKE 4 TABLETS( 2000MG) BY MOUTH ONCE DAILY; Therapy: 07Jkq1892 to (Evaluate:18Jul2019) Requested for: 23Jul2018; Last Rx:23Jul2018 Ordered 8. One-Daily Multi Vitamins Oral Tablet; TAKE 1 TABLET DAILY; Therapy: (Recorded:23Jul2012) to Recorded 9. Pyridium 100 MG Oral Tablet; TAKE 1 TABLET 3 TIMES DAILY AFTER MEALS NEEDED; Therapy: 11Tik6059 to (Last Rx:66Ypx6209) Requested for: 14Jun2018 Ordered 10. Simvastatin 20 MG Oral Tablet; TAKE ONE TABLET BY MOUTH DAILY; Therapy: 46Joq3698 to (Evaluate:10Jul2019) Requested for: 15Jul2018; Last Rx:15Jul2018 Ordered 11. Ventolin HFA 108 (90 Base) MCG/ACT Inhalation Aerosol Solution; INHALE 1 TO 2 PUFFS EVERY 4 TO 6 HOURS NEEDED; Therapy: 06Mar2017 to (Last Rx:57Ooo7372) Requested for: 75Yrf7795 Ordered 12. Vitamin D3 1000 UNIT Oral Tablet; takes 2 tablets daily; Therapy: (Recorded:84Spz1916) to Recorded Allergies 1. Ultram TABS Vitals [...] Cortney Chandra M.D.; Sep 12 2018 4:16PM GARNETT MACHINE OPERATOR documented in this encounter Plan of Treatment Not on file documented as of this encounter Visit Diagnoses Not on filedocumented in this encounter Care Teams Wilderness Guide Relationship Specialty Start Date End Date Unknown, Provider . [facility] [address] PCP - General 03/26/18 04/29/19 Cortney Chandra MD [address] [place] [address] PCP - General Family Medicine 04/30/19 Cortney Chandra MD [address] [place] [address] PCP Family Medicine 04/29/19 04/29/19 [facility] 03/30/23 Primary Eye Care 03/30/23 documented as of this encounter Additional Source Comments PLEASE NOTE: Replies to this message will not be received.[facility] and [facility]
--- OUTSIDE RECORDS SUMMARY | 2024-05-27 12:52 | XMS_ITS | Encounter Summary ---
Author Organization [employer] Address [address] [place] [address] Care Team Providers Care Company Manager Name Role Phone Unknown, Provider Primary Care Provider Unavaila ble Cortney Chandra MD Unavailable [phone] Cortney Chandra MD Primary Care Provider [phone] Encounter Details Date Type Department Care Team (Late st Contact Info) Description 08/10/2015 Historical Conversion [facility] Family Medicine [address] [place] [address] [place] [address] Cortney Chandra MD [address] [place] [address] Social History Tobacco Use Types [...] for c/o pain/tingling in Rt. arm. CSwanson UPPER CUTTER Past Medical History 1. Allergic rhinitis due [...] 81 MG Oral Tablet; ONE DAILY; Last Rx:02Cax5004 Ordered 2. Calcium 600/Vitamin D3 TABS; 1 [...] DAILY IN EACH NOSTRIL; Therapy: 17Apr2009 to (Evaluate:82Dkb9431) Requested for: 09May2014; Last Rx:09May2014 Ordered 6. Hydrocortisone 2.5 % External Cream; APPLY SPARINGLY TO AFFECTED AREA(S) TWICE DAILY; Therapy: 20Jul2015 to (Last Rx:20Jul2015) Requested for: 20Jul2015 Ordered 7. Loratadine 10 MG Oral Tablet; TAKE 1 TABLET BY MOUTH DAILY NEEDED; Therapy: 90Ltf9068 to (Evaluate:61Mmp1985) Requested for: 54Toe3870; Last Rx:04Jmt1004 Ordered 8. Losartan Potassium 100 MG Oral Tablet; TAKE 1 TABLET BY MOUTH ONCE DAILY; Therapy: 47Jhc0758 to (Evaluate:14Jul2016) Requested for: 20Jul2015; Last Rx:20Jul2015 Ordered 9. MetFORMIN HCl ER 500 MG Oral Tablet Extended Release 24 Hour; TAKE 4 TABLETS( 2000MG) BY MOUTH ONCE DAILY; Therapy: 51Nwz4063 to (Evaluate:14Jul2016) Requested for: 20Jul2015; Last Rx:20Jul2015 [...] TAKE ONE TABLET BY MOUTH DAILY; Therapy: 60Wpp9199 to (Evaluate:14Jul2016) Requested for: 20Jul2015; Last Rx:20Jul2015 [...] Vital Signs [Data Includes: Current Encounter] Recorded: 01Keo5070 02:56PM Blood Pressure 136 / 92, RUE, [...] traction would benefit Status: Active Requested for: 82Gor4498 Care Summary provided. : Yes With: : [facility] PT/OT DEPT Related: : No Encounter: : No Phone Number to Contact Patient: : home [phone] to Provider, Practice or Agency: : PT at [facility] 2. PredniSONE 20 MG Oral Tablet; TAKE 2 TABLET DAILY Signatures Electronically signed by : Cortney Chandra M.D.; Aug 22 2015 9:54AM AUTOMOTIVE ENGINEERING TECHNICIAN documented in this encounter Plan of Treatment Not on file documented as of this encounter Visit Diagnoses Not on filedocumented in this encounter Care Teams Company Manager Relationship Specialty Start Date End Date Unknown, Provider . HIRAM PEGUERO [address] PCP - General 03/26/18 04/29/19 Cortney Chandra MD [address] [place] [address] PCP - General Family Medicine 04/30/19 Cortney Chandra MD [address] [place] [address] PCP Family Medicine 04/29/19 04/29/19 [facility] 03/30/23 Primary Eye Care 03/30/23 documented as of this encounter Additional Source Comments PLEASE NOTE: Replies to this message will not be received.[facility] and [facility]
--- OUTSIDE RECORDS SUMMARY | 2024-05-27 12:52 | XMS_ITS | Encounter Summary ---
Author Organization [employer] Address [address] [place] [address] Care Team Providers Care Garbage Pick Up Worker Name Role Phone Unknown, Provider Primary Care Provider Unavaila Cortney Gomez MD Unavailable [phone] Cortney Chandra MD Primary Care Provider [phone] Encounter Details Date Type Department Care Team (Late st Contact Info) Description 11/07/2014 Historical Conversion [facility] Family Medicine [address] [place] [address]. [place] [address] Cortney Chandra MD [address] [place] [address] Social History Tobacco Use Types [...] on filedocumented in this encounter Care Teams Garbage Pick Up Worker Relationship Specialty Start Date End Date Unknown, Provider . HIRAM PEGUERO [address] PCP - General 03/26/18 04/29/19 Cortney Chandra MD [address] [place] [address] PCP - General Family Medicine 04/30/19 Cortney Chandra MD [address] [place] [address] PCP Family Medicine 04/29/19 04/29/19 [facility] 03/30/23 Primary Eye Care 03/30/23 documented as of this encounter Additional Source Comments PLEASE NOTE: Replies to this message will not be received.[facility] and [facility]
--- OUTSIDE RECORDS SUMMARY | 2024-05-27 12:52 | XMS_ITS | Encounter Summary ---
Author Organization [employer] Address [address] [place] [address] Care Team Providers Care Lending Manager Name Role Phone Cortney Chandra MD Primary Care Provider [phone] Encounter Details Date Type Department Care Team (Latest Contact Info) Description 03/08/2024 Patient Message [facility] [address] [place], [place] [id number] Cortney Chandra MD [address] [place] [address] Dx: Other hyperlipidemia Social History Tobacco Use Types Packs/Day Years Used Date Smoking Tobacco: Never Smokeless Tobacco: Never Alcohol Use Standard Drinks/Week Comments Never 0 (1 standard drink = 0.6 oz pur e alcohol) [facility] Utilities Answer Date Recorded In the past 12 months has [facility] [employer], [employer], oil, or water [employer] threatened to shut off services in your [...] any clubs o r organizations such as hindu groups, unions, fraternal or athletic groups, or [...] pollen documented in this encounter Care Teams Lending Manager Relationship Specialty Start Date End Date Cortney Chandra MD [address] [place] [address] PCP - General Family Medicine 04/30/19 [facility] 03/30/23 Primary Eye Care 03/30/23 documented as of this encounter Additional Source Comments PLEASE NOTE: Replies to this message will not be received.[facility] and [facility]
--- OUTSIDE RECORDS SUMMARY | 2024-05-27 12:52 | XMS_ITS | Encounter Summary ---
Author Organization [employer] Address [address] [place] [address] Care Team Providers Care Gravure Press Operator Name Role Phone Unknown, Provider Primary Care Provider Unavaila Cortney Gomez MD Unavailable [phone] Cortney Chandra MD Primary Care Provider [phone] Encounter Details Date Type Department Care Team (Late st Contact Info) Description 08/13/2018 Historical Conversion [facility] Family Medicine [address] [facility] [place] [address] Rosemary Aquino APRN,SHOW HOST OR HOSTESS [address] [place] [address] Social History Tobacco Use Types Packs/Day Years Used Date Smoking Tobacco: Never Assessed Sex and Gender Information Value Date Recorded Sex Assigned at Not on file Gender Identity Female 01/16/2023 2:23 PM CDT Sexual Orientation Not on file documented as of this encounter Progress Notes * Rosemary Aquino, CHALINO,SHOW HOST OR HOSTESS - 08/13/2018 12:00 AM CST Assessment 1. [...] - Requires Verification,Retrospective By Protocol Authorization; Done: 18Uei4139 02:29PM Reason For Visit Patient in with [...] Aspirin 81 MG TABS; ONE DAILY; Last Rx:88Trl1504 Ordered 2. Cyclobenzaprine HCl - 10 MG Oral Tablet; TAKE 1/2 TO 1 TABLET THREE TIMES DAILY; Therapy: 30Sep2010 to (Evaluate:47Chq6593) Requested for: 07Jul2016; Last Rx:07Jul2016 Ordered 3. Fluticasone Propionate 50 MCG/ACT Nasal Suspension; INSTILL 1 SPRAY DAILY IN EACH NOSTRIL; Therapy: 17Apr2009 to (Evaluate:14Apr2018) Requested for: 16Oct2017; Last Rx:16Oct2017 Ordered 4. Hydrocortisone 2.5 % External Cream; APPLY SPARINGLY TO AFFECTED AREA(S) TWICE DAILY; Therapy: 20Jul2015 to (Evaluate:02Fyc2141) Requested for: 17Jul2017; Last Rx:17Jul2017 Ordered 5. Loratadine 10 MG Oral Tablet; TAKE 1 TABLET BY MOUTH DAILY NEEDED; Therapy: 17Qje1904 to (Evaluate:12Sep2018) Requested for: 17Sep2017; Last Rx:17Sep2017 Ordered 6. Losartan Potassium 100 MG Oral Tablet; TAKE 1 TABLET BY MOUTH ONCE DAILY; Therapy: 04Lco9536 to (Evaluate:10Jul2019) Requested for: 15Jul2018; Last Rx:15Jul2018 Ordered 7. metFORMIN HCl ER 500 MG Oral Tablet Extended Release 24 Hour; TAKE 4 TABLETS( 2000MG) BY MOUTH ONCE DAILY; Therapy: 86Ahs5789 to (Evaluate:18Jul2019) Requested for: 23Jul2018; Last Rx:23Jul2018 Ordered 8. One-Daily Multi Vitamins Oral Tablet; TAKE 1 TABLET DAILY; Therapy: (Recorded:23Jul2012) to Recorded 9. Pyridium 100 MG Oral Tablet; TAKE 1 TABLET 3 TIMES DAILY AFTER MEALS NEEDED; Therapy: 06Iyy5569 to (Last Rx:16Wyv5345) Requested for: 14Jun2018 Ordered 10. Simvastatin 20 MG Oral Tablet; TAKE ONE TABLET BY MOUTH DAILY; Therapy: 25Bls5008 to (Evaluate:10Jul2019) Requested for: 15Jul2018; Last Rx:15Jul2018 Ordered 11. Ventolin HFA 108 (90 Base) MCG/ACT Inhalation Aerosol Solution; INHALE 1 TO 2 PUFFS EVERY 4 TO 6 HOURS NEEDED; Therapy: 06Mar2017 to (Last Rx:10Ats5761) Requested for: 70Tbh1514 Ordered 12. Vitamin D3 1000 UNIT Oral Tablet; takes 2 tablets daily; Therapy: (Recorded:38Qjm5943) to Recorded Allergies 1. Ultram TABS Vitals [...] Urinalysis-Color YEL Urinalysis- Appearance CLOUD A Urinalysis-Sp Midnight 1.010 1.005-1.030 Urinalysis-pH 5.5 5.0-7.5 Urinalysis-Protein NEG NEGATIVE Urinalysis- Glucose NEG NEGATIVE Urinalysis-Ketone TRACE A NEGATIVE Urinalysis- Bilirub NEG NEGATIVE Urinalysis- Blood 3+ A NEGATIVE Urinalysis-Urobil 0.2 0.2-1.0 Urinalysis-Nitrite NEG NEGATIVE Urinalysis-Leuk 3+ A NEGATIVE Urinalysis-WBC TNTC A 0-4 Urinalysis-RBC TNTC A 0-4 Urinalysis-Epith FEW Urinalysis-Hyal Cast NEG Urinalysis- Bacteria MOD A UrinalysisA Urinalysis-Color YEL Urinalysis- Appearance CLOUD A Urinalysis-Sp Midnight 1.010 1.005-1.030 Urinalysis-pH 5.5 5.0-7.5 Urinalysis-Protein NEG NEGATIVE Urinalysis- Glucose NEG NEGATIVE Urinalysis-Ketone TRACE A NEGATIVE Urinalysis- Bilirub NEG NEGATIVE Urinalysis- Blood 3+ A NEGATIVE Urinalysis-Urobil 0.2 0.2-1.0 Urinalysis-Nitrite NEG NEGATIVE Urinalysis-Leuk 3+ A NEGATIVE Urinalysis-WBC TNTC A 0-4 Urinalysis-RBC TNTC A 0-4 Urinalysis-Epith FEW Urinalysis-Hyal Cast NEG Urinalysis- Bacteria MOD A UrinalysisA Signatures Electronically signed by : Rosemary Aquino RN SHOW HOST OR HOSTESS RN,SHOW HOST OR HOSTESS; Aug 13 2018 3:19PM HOME HEALTH CNA documented in this encounter Plan of Treatment Not on file documented as of this encounter Visit Diagnoses Not on filedocumented in this encounter Care Teams Gravure Press Operator Relationship Specialty Start Date End Date Unknown, Provider . HIRAM PEGUERO [address] PCP - General 03/26/18 04/29/19 Cortney Chandra MD [address] [place] [address] PCP - General Family Medicine 04/30/19 Cortney Chandra MD [address] [place] [address] PCP Family Medicine 04/29/19 04/29/19 [facility] 03/30/23 Primary Eye Care 03/30/23 documented as of this encounter Additional Source Comments PLEASE NOTE: Replies to this message will not be received.[facility] and [facility]
--- OUTSIDE RECORDS SUMMARY | 2024-05-27 12:52 | XMS_ITS | Encounter Summary ---
Author Organization [employer] Address [address] [place] [address] Care Team Providers Care Central Supply Supervisor Name Role Phone Unknown, Provider Primary Care Provider Unavaila ble Cortney Chandra MD Unavailable [phone] Cortney Chandra MD Primary Care Provider [phone] Encounter Details Date Type Department Care Team (Late st Contact Info) Description 07/20/2015 Historical Conversion [facility] Family Medicine [address] [place] [address] [place] [address] Cortney Chandra MD [address] [place] [address] Social History Tobacco Use Types [...] 81 MG Oral Tablet; ONE DAILY; Last Rx:[id number] Ordered 2. Calcium 600/Vitamin D3 TABS; 1 [...] DAILY IN EACH NOSTRIL; Therapy: 17Apr2009 to (Evaluate:32Cnb6242) Requested for: 09May2014; Last Rx:09May2014 Ordered 6. Loratadine 10 MG Oral Tablet; TAKE 1 TABLET BY MOUTH DAILY NEEDED; Therapy: 71Nrd3347 to (Evaluate:00Jkp5434) Requested for: 10Sev6485; Last Rx:04Vqs8168 Ordered 7. Losartan Potassium 100 MG Oral Tablet; TAKE 1 TABLET BY MOUTH ONCE DAILY; Therapy: 91Ajy0440 to (Evaluate:70Vup4903) Requested for: 13Feb2015; Last Rx:21Mab0996 Ordered 8. MetFORMIN HCl ER 500 MG Oral Tablet Extended Release 24 Hour; TAKE 4 TABLETS( 2000MG) BY MOUTH ONCE DAILY; Therapy: 53Ttd1962 to (Evaluate:43Ftg9236) Requested for: 13Feb2015; Last Rx:13Feb2015 Ordered 9. One-Daily Multi Vitamins Oral Tablet; TAKE 1 TABLET DAILY; Therapy: (Recorded:23Jul2012) to Recorded 10. ProAir HFA 108 (90 Base) MCG/ACT Inhalation Aerosol Solution; INHALE 2 PUFFS EVERY 4 HOURS NEEDED FOR COUGHAND WHEEZE; Therapy: 26May2008 to (Last Rx:14May2015) Requested for: 14May2015 Ordered 11. Simvastatin 20 MG Oral Tablet; TAKE ONE TABLET BY MOUTH DAILY; Therapy: 29Tyx9696 to (Evaluate:11Jul2016) Requested for: 17Jul2015; Last Rx:17Jul2015 [...] Never smoked Review of Systems Female Complete [facility] [employer]: Constitutional: no fever and no chills. [...] is a 65-year-old recently retired employee from [employer] that is here for her first [...] Cortney Chandra M.D.; Aug 07 2015 1:15PM STEAM TRAIN DRIVER documented in this encounter Plan of Treatment Not on file documented as of this encounter Visit Diagnoses Not on filedocumented in this encounter Care Teams Central Supply Supervisor Relationship Specialty Start Date End Date Unknown, Provider . HIRAM PEGUERO [address] PCP - General 03/26/18 04/29/19 Cortney Chandra MD [address] [place] [address] PCP - General Family Medicine 04/30/19 Cortney Chandra MD [address] [place] [address] PCP Family Medicine 04/29/19 04/29/19 [facility] 03/30/23 Primary Eye Care 03/30/23 documented as of this encounter Additional Source Comments PLEASE NOTE: Replies to this message will not be received.[facility]
--- OUTSIDE RECORDS SUMMARY | 2024-05-27 12:52 | XMS_ITS | Encounter Summary ---
Author Organization [employer] Address [address] [place] [address] Care Team Providers Care Fiberglasser Name Role Phone Unknown, Provider Primary Care Provider Unavaila ble Cortney Chandra MD Unavailable [phone] Cortney Chandra MD Primary Care Provider [phone] Encounter Details Date Type Department Care Team (Late st Contact Info) Description 08/30/2018 Historical Conversion [facility] Family Medicine [address] [place] [address]. [place] [address] Cortney Chandra MD [address] [place] [address] Social History Tobacco Use Types Packs/Day Years Used Date Smoking Tobacco: Never Assessed Sex and Gender Information Value Date Recorded Sex Assigned at Not on file Gender Identity Female 01/16/2023 2:23 PM CDT Sexual Orientation Not on file documented as of this encounter Last Filed Vital Signs Vital Sign Reading Time Taken Comments Blood Pressure 124/76 08/30/2018 12:00 AM VENDOR RELATIONSHIP MANAGER Pulse - - Temperature - - Respiratory Rate - - Oxygen Saturation - - Inhaled Oxygen Concentration - - Weight 88.5 kg (195 lb 1.7 oz) 08/30/2018 12:00 AM VENDOR RELATIONSHIP MANAGER Height 162.5 cm (5' 3.98) 08/30/2018 12:[address] Body Mass Index 33.52 08/30/2018 12:00 AM VENDOR RELATIONSHIP MANAGER documented in this encounter Plan of Treatment Not on file documented as of this encounter Visit Diagnoses Not on filedocumented in this encounter Care Teams Fiberglasser Relationship Specialty Start Date End Date Unknown, Provider . HIRAM PEGUERO [address] PCP - General 03/26/18 04/29/19 Cortney Chandra MD [address] [place] [address] PCP - General Family Medicine 04/30/19 Cortney Chandra MD [address] [place] [address] PCP Family Medicine 04/29/19 04/29/19 [facility] 03/30/23 Primary Eye Care 03/30/23 documented as of this encounter Additional Source Comments PLEASE NOTE: Replies to this message will not be received.[facility] and [facility]
--- OUTSIDE RECORDS SUMMARY | 2024-05-27 12:52 | XMS_ITS | Encounter Summary ---
Author Organization [employer] Address [address] [place] [address] Care Team Providers Care Armed Guard Name Role Phone Unknown, Provider Primary Care Provider Unavaila Cortney Gomez MD Unavailable [phone] Cortney Chandra MD Primary Care Provider [phone] Encounter Details Date Type Department Care Team (Late st Contact Info) Description 06/16/2017 Historical Conversion [facility] Family Medicine [address] [place] [address] Rosalia Lopez MD Social History Tobacco Use Types Packs/Day Years Used Date Smoking Tobacco: Never Assessed Sex and Gender Information Value Date Recorded Sex Assigned at Not on file Gender Identity Female 01/16/2023 2:23 PM CDT Sexual Orientation Not on file documented as of this encounter Last Filed Vital Signs Vital Sign Reading Time Taken Comments Blood Pressure 136/81 06/16/2017 12:00 AM EMPLOYMENT CLERK Pulse - - Temperature - - Respiratory Rate - - Oxygen Saturation - - Inhaled Oxygen Concentration - - Weight 86.5 kg (190 lb 11.2 oz) 017 12:00 AM EMPLOYMENT CLERK Height - - Body Mass Index 32.56 08/19/2016 12:00 AM EMPLOYMENT CLERK documented in this encounter Progress Notes * Rosalia Lopez MD - 06/16/2017 12:00 AM CST DERMATOLOGY OCTAVIO GALVAN : 1950 HX: [id number] DOS: 06/16/2017 CHIEF COMPLAINT: History of squamous [...] lesion. Rosalia Lopez M.D./ cc: Cortney Chandra M.D./[facility] Electronically signed by:Rosalia Lopez M.D. Jun 23 2017 8:25AM EMPLOYMENT CLERK documented in this encounter Plan of Treatment Not on file documented as of this encounter Visit Diagnoses Not on filedocumented in this encounter Care Teams Armed Guard Relationship Specialty Start Date End Date Unknown, Provider . HIRAM PEGUERO [address] PCP - General 03/26/18 04/29/19 Cortney Chandra MD [address] [place] [address] PCP - General Family Medicine 04/30/19 Cortney Chandra MD [address] [place] [address] PCP Family Medicine 04/29/19 04/29/19 [facility] 03/30/23 Primary Eye Care 03/30/23 documented as of this encounter Additional Source Comments PLEASE NOTE: Replies to this message will not be received.[facility]
--- OUTSIDE RECORDS SUMMARY | 2024-05-27 12:52 | XMS_ITS | Encounter Summary ---
Author Organization [employer] Address [address] [place] [address] Care Team Providers Care Coin Machine Servicer Repairer Name Role Phone Unknown, Provider Primary Care Provider UnavailCortney Dye MD Unavailable [phone] Cortney Chandra MD Primary Care Provider [phone]- [phone] Encounter Details Date Type Department Care Team (Late st Contact Info) Description 06/14/2018 Historical Conversion [facility] Family Medicine [address] [place] [address] Rosemary Aquino, RECORDS MANAGEMENT SPECIALIST,SLIDE FASTENERS INSPECTOR [address] [place] [address] Social History Tobacco Use Types Packs/Day Years Used Date Smoking Tobacco: Never Assessed Sex and Gender Information Value Date Recorded Sex Assigned at Not on file Gender Identity Female 01/16/2023 2:23 PM CDT Sexual Orientation Not on file documented as of this encounter Last Filed Vital Signs Vital Sign Reading Time Taken Comments Blood Pressure 144/88 06/14/2018 12:00 AM FERMENTER WINE Pulse - - Temperature - - Respiratory Rate - - Oxygen Saturation - - Inhaled Oxygen Concentration - - Weight 87 kg (191 lb 12.8 oz) 06/14/2018 12:00 A M FERMENTER WINE Height - - Body Mass Index 32.75 09/25/2017 12:00 AM CDT documented in this encounter Plan of Treatment Not on file documented as of this encounter Visit Diagnoses Not on filedocumented in this encounter Care Teams Coin Machine Servicer Repairer Relationship Specialty Start Date End Date Unknown, Provider . HIRAM PEGUERO [address] PCP - General 03/26/18 04/29/19 Cortney Chandra MD [address] [place] [phone] PCP - General Family Medicine 04/30/19 Cortney Chandra MD [address] [place] [phone] PCP Family Medicine 04/29/19 04/29/19 [facility] 03/30/23 Primary Eye Care 03/30/23 documented as of this encounter Additional Source Comments PLEASE NOTE: Replies to this message will not be received.[facility] and [facility] [place]
[2024-05-27 13:29] LABS: Free T4 Free Thyroxine* 1.49 ng/dL (0.70-1.85)
[2024-05-28 18:52] LABS: Ceruloplasmin 23 mg/dL (16-45)
[2024-05-29 05:38] LABS: Copper, Serum/Plasma 100.7 ug/dL (80.0-155.0); Zinc, Serum/Plasma 70.6 ug/dL (60.0-120.0)
[2024-05-31 16:01] LABS: Vitamin B6 (Pyridoxal 5-Phos) 18.5 nmol/L (20.0-125.0)
== END 2024-05-27 12:47 | disposition home or self-care (01) ==
LOC: NPINS 12:46
PROVIDERS: PCP Internal Medicine; Visit Provider Psychiatry & Neurology Neurology
DX: G64 Other disorders of peripheral nervous system (principal); R26.89 Other abnormalities of gait and mobility; G20.C Parkinsonism, unspecified
CPT/HCPCS: 82390; 82525; 84207; 84439; 84443; 84446; 84630

== ENCOUNTER 2024-06-10 13:20 | Outpatient (CLI) | payer MEDICARE, SELFPAY ==
--- OUTSIDE RECORDS SUMMARY | 2024-06-14 18:51 | XMS_ITS | Clinical Summary ---
Author Organization [employer] Address [address] [place] [address] Care Team Providers Care Director Business Travel Name Role Phone Cortney Espinosa MD Primary Care Provider [phone]- [phone] Allergies Active Allergy Reactions Criticality Noted Date Comments Tramadol Nausea and / or Vomiting Low 04/29/2019 Medications Medication Sig Dispensed Refills Start Date End Date Status albuterol HFA (AKA: PROVENTIL/VENTOLIN) 90 mcg/actuation inhalation HFA Aerosol Inhaler 1-2 Puffs by inhalation route every 4 hours if needed for shortness of breath. Active K-V-R-zinc-sod selenate-copper (AKA: OCUVITE, PROSIGHT) 5,000-60-30 zxns-io-zhaj oral Tablet Take 1 Tablet by mouth [...] Active fluticasone propionate (FLONASE) 50 mcg/actuation nasal [place], SuspensionIndication s:Allergic rhinitis due to pollen, unspecified [...] Type Department Care Team Description 05/09/2024 Telephone [place] [id number] [place] [address] Zahraa Larson, LUCIA Chief Comp: Medicare Wellness 05/06/2024 Telephone [place] [address] [place] [address] Jodie Alford LPN Chief Comp: Questions 05/06/2024 Telephone [place] [address] [place] [address] Ely Ragland CMA Chief Comp: Medicare Wellness 04/13/2024 Telephone [place] [address] [place] [address] Daryl Mary RN Dx: Other hyperlipidemia (Primary Dx) 04/07/2024 Telephone [place] [address] [place] [address] Cortney Espinosa MD Chief Comp: Questions 04/05/2024 Telephone [place] [address] [place] [address] Ingrid George RN Chief Comp: Questions from Last 3 Months Immunizations Name Administration [...] Mother Yennifer No Known Problems Paternal Grandfather Tavoner No Known Problems Paternal Grandmother Yamilet Diabetes [...] drink = 0.6 oz pur e alcohol) [facility] Utilities Answer Date Recorded In [...] How often do you attend chur or islam services? More than 4 times [...] and heating? Not hard at all 08/15/2023 [facility] of Occupat ional Health - Occupational Stress [...] place to sleep or slept in a correction (including now)? No 08/15/2023 Depression (PHQ-9) Answer [...] Comments Blood Pressure 139/81 08/21/2023 9:47 AM A AUXILIARY Pulse 77 08/21/2023 9:47 AM A AUXILIARY Temperature 36.9 C (98.5 F) 08/21/2023 9:47 AM A AUXILIARY Respiratory Rate 18 08/21/2023 9:47 AM A AUXILIARY Oxygen Saturation 96% 08/21/2023 9:47 AM A AUXILIARY Inhaled Oxygen Concentration - - Weight 73 kg (161 lb) 08/21/2023 9:47 AM A AUXILIARY Height 161.1 cm (5' 3.43) 03/30/2023 10:53 [...] GLYCOSYLATED HEMOGLOBIN, A1C Routine 09/10/2023 9:59 AM A AUXILIARY Type 2 diabetes mellitus with stage 1 [...] EYE EXAM - EXTERNAL (12/25/2023) RETINOPATHY Negative [facility] Cortney Espinosa MD NURSING COMMUNICAT ION Performing Organization Address [facility] Co de Phone Number [address] [address], * GLYCOSYLATED HEMOGLOBIN, A1C (09/10/2023 9:59 AM A AUXILIARY) Hemoglobin A1c 6.3 <=6.4 % 09/10/2023 10:27 AM A AUXILIARY [facility] Estimated Average Glucose 134 mg/dL 09/10/2023 10:27 AM A AUXILIARY [facility] Blood VENOUS BLOOD / Unknown Venipuncture / Unknown 09/10/2023 9:59 AM A AUXILIARY 09/10/2023 9:59 AM A AUXILIARY Cortney Espinosa MD LAB CHEMISTRY ORDE RABLES Performing Organization Address City/[facility]/ZIP Co de Phone Number [address] [address], [place] [phone] * MICROALBUMIN, RANDOM, URINE (03/30/2023 11:28 AM CDT) Microalbumin, Urine <12.0 mg/L 03/30/2023 1:46 PM CDT [facility] Creatinine, Urine 71.1 mg/dL 03/30/2023 1:46 PM T [facility] Microalbumin/Cr eatinine Ratio 03/30/2023 1:46 PM T [facility] Comment: Unable to calculate ratio due to decreased Microalbumin. Normal: <30 Microalbuminuria: 30-299 Clinical Microalbuminuria: >300 Urine SPOT URINE SPECIMEN / Unknown Non-blood Collection / Unknown 03/30/2023 11:28 AM CDT 03/30/2023 11:28 AM CDT Cortney Espinosa MD LAB URINE ORDERABL ES [facility] [address] [place] [address], [place] [phone] * (ABNORMAL) LIPID PANEL (03/30/2023 11:28 AM CDT) Cholesterol 138 0 - 200 mg/dL 03/30/2023 1:39 PM [facility] Triglycerides 86 0 - 150 mg/dL 03/30/2023 1:39 PM [facility] Cholesterol, LDL (Calculated) 69 <=100 mg/dL 03/30/2023 1:39 PM [facility] Cholesterol, HDL 52(L) 60 - 150 mg/dL 03/30/2023 1:39 PM [facility] Cholesterol, vLDL 17 0 - 130 mg/dL 03/30/2023 1:39 PM [facility] Fasting Status Yes 03/30/2023 1:39 PM [facility] Blood VENOUS BLOOD / Unknown Venipuncture / Unknown 03/30/2023 11:28 AM CDT 03/30/2023 11:28 AM CDT Cortney Espinosa MD LAB CHEMISTRY ORDE RABLES [facility] [address] [place] [address], [place] [phone] * DEXA HIP AND SPINE (02/26/2021 10:38 [...] based on specific patient circumstances. Procedure Note Mackenzie Mya, PAC - 02/26/2021 XR DEXA HIP AND [...] PM CDT) 03/01/2020 12:0 1 PM CDT [facility] - 03/01/2020 1:05 PM CDT Patient Name: SUMAYA GALVAN Procedure Date: 03/01/2020 Date of : 1950 Attending MD: BILLY ESPINOSA MD Referring MD CORTNEY ESPINOSA Additional Staff Jade Copeland, Adobe Layer; Malini Quiros RN Patient Profile - Refer [...] data. These codes are preliminary and upon pharmacy associate review may be revised to meet current compliance and payer requirements. The provider is responsible for the final determination of appropriate codes, and modifiers. Scope Withdrawal Time 00:12:06 Signature Name: Billy Espinosa Signature Statement:This document has been electronically signed. Note Initiated On:03/01/2020 Signature Date:03/01/2020 1:05 PM Cortney Espinosa MD GI PROCEDURES [facility] [address] [place] [address], from Last 3 Months or Most Recently Relevant to Health Maintenance Advance Directives Documents on File Type Date Recorded Patient Frameman Expl anation Physician Orders for Life-Sustaining Treatment (POLST) 05/18/2023 2:28 PM POLST POLST-S 04/03/2023 2:26 PM Advanced Directives 06/06/2020 1:42 PM [facility] Health Care Directive-S 02/17/2005 1:42 PM Care Teams Director Business Travel Relationship Specialty Start Date End Date Cortney Espinosa MD [address] [place] [address] [address] PCP - General Family Medicine 04/30/19 [facility] 03/30/23 Primary Eye Care 03/30/23 Additional Source Comments PLEASE NOTE: Replies to this message will not be received.[facility] and [facility]
--- OUTSIDE RECORDS SUMMARY | 2024-06-14 18:51 | XMS_ITS | Encounter Summary ---
Author Organization [employer] Address [address] [place] [address] Care Team Providers Care Senior Accounts Payable Clerk Name Role Phone Cortney Chandra MD Primary Care Provider +1- [phone] Reason for Visit * Reason Onset Date Comments Questions 04/05/2024 Encounter Details Date Type Department Care Team (Late st Contact Info) Description 04/05/2024 Telephone [place] [address] [facility] [place], [place] [id number] Ingrid George RN Chief Comp: Questions Social History Tobacco Use Types Packs/Day Years Used Date Smoking Tobacco: Never Smokeless Tobacco: Never Alcohol Use Standard Drinks/Week Comments Never 0 (1 standard drink = 0.6 oz pur e alcohol) [facility] Utilities Answer Date Recorded In [...] often do you attend chur ch or gnosticism services? More than 4 times per year [...] 04/05/2024 8:38 AM CDT ----- Message from [employer] sent at 04/04/2024 4:28 PM CDT ----- Regarding: Call Back Fermin from [facility]. Would like a call back at . Aware you will be in the office on Thursday. Thank you. documented in this encounter Plan of Treatment Not on file documented as of this encounter Visit Diagnoses Not on filedocumented in this encounter Care Teams Senior Accounts Payable Clerk Relationship Specialty Start Date End Date Cortney Chandra MD [address] [place] [phone] PCP - General Family Medicine 04/30/19 [facility] 03/30/23 Primary Eye Care 03/30/23 documented as of this encounter Additional Source Comments PLEASE NOTE: Replies to this message will not be received.[facility] and [facility]
--- OUTSIDE RECORDS SUMMARY | 2024-06-14 18:51 | XMS_ITS | Encounter Summary ---
Author Organization [employer] Address [address] [place] [address] Care Team Providers Care Surgical Forceps Fabricator Name Role Phone Cortney Chandra MD Primary Care Provider +1- [phone] Reason for Visit * Reason Onset Date Comments Medication Questions 04/13/2024 Encounter Details Date Type Department Care Team ([facility] st Contact Info) Description 04/13/2024 Telephone [facility] [address] [facility] [place], [place] [phone] Daryl Mary RN Dx: Other hyperlipidemia (Primary Dx) Social History Tobacco Use Types Packs/Day Years Used Date Smoking Tobacco: Never Smokeless Tobacco: Never Alcohol Use Standard Drinks/Week Comments Never 0 (1 standard drink = 0.6 oz pur e alcohol) [facility] Utilities Answer Date Recorded In the past 12 months has [facility], gas, oil, or water [employer] threatened to shut off services in your [...] often do you attend chur ch or temple services? More than 4 times [...] and heating? Not hard at all 08/15/2023 [facility] of Occupat ional Health - Occupational [...] Primary documented in this encounter Care Teams Surgical Forceps Fabricator Relationship Specialty Start Date End Date Cortney Chandra MD [address] [place] [address] PCP - General Family Medicine 04/30/19 [facility] 03/30/23 Primary Eye Care 03/30/23 documented as of this encounter Additional Source Comments PLEASE NOTE: Replies to this message will not be received.[facility] and [facility]
--- OUTSIDE RECORDS SUMMARY | 2024-06-14 18:51 | XMS_ITS | Encounter Summary ---
Author Organization [employer] Address [address] [place] [address] Care Team Providers Care Hand Candle Molder Name Role Phone Cortney Chandra MD Primary Care Provider +1- [phone] Encounter Details Date Type Department Care Team (Latest Contact Info) Description 03/08/2024 Patient Message [facility] [address] [place], [place] [phone] Cortney Chandra MD [address] [place] [phone] Dx: Other hyperlipidemia Social History Tobacco Use Types Packs/Day Years Used Date Smoking Tobacco: Never Smokeless Tobacco: Never Alcohol Use Standard Drinks/Week Comments Never 0 (1 standard drink = 0.6 oz pur e alcohol) [facility] Utilities Answer Date Recorded In the past [address] [facility] [employer], [employer], oil, or water [employer] threatened to shut off services in your [...] How often do you attend chur or quaker services? More than 4 times per year 08/15/2023 Do you belong to any clubs o r organizations such as yazidi groups, unions, fraternal or athletic groups, or [...] and heating? Not hard at all 08/15/2023 [facility] of Occupat ional Health - Occupational [...] pollen documented in this encounter Care Teams Hand Candle Molder Relationship Specialty Start Date End Date Cortney Chandra MD [address] [place] [phone] PCP - General Family Medicine 04/30/19 [facility] 03/30/23 Primary Eye Care 03/30/23 documented as of this encounter Additional Source Comments PLEASE NOTE: Replies to this message will not be received.[facility]
--- OUTSIDE RECORDS SUMMARY | 2024-06-14 18:51 | XMS_ITS | Encounter Summary ---
Author Organization [employer] Address [address] [place] [address] Care Team Providers Care Chemical Engineer Name Role Phone Cortney Chandra MD Primary Care Provider +1- [phone] Reason for Visit * Reason Onset Date Comments Medicare Wellness 05/09/2024 Encounter Details Date Type Department Care Team (Late st Contact Info) Description 05/09/2024 Telephone [facility] [address] [facility] [place], [place] [id number] Zahraa Larson RN Chief Comp: Medicare Wellness Social History Tobacco Use Types Packs/Day Years Used Date Smoking Tobacco: Never Smokeless Tobacco: Never Alcohol Use Standard Drinks/Week Comments Never 0 (1 standard drink = 0.6 oz pur e alcohol) [facility] Utilities Answer Date Recorded In the past [...] any clubs o r organizations such as religious groups, unions, fraternal or athletic groups, or [...] and heating? Not hard at all 08/15/2023 [facility] of Occupat ional Health - Occupational [...] Miscellaneous Notes * Telephone Encounter - Zahraa Larsno RN - 05/09/2024 11:05 AM CST Called patient to verify her last Medicare Annual Wellness visit. She is staying in [place] at the present time. She has a terrible fall on March 05 and has been in the hospital and currently doing rehab with PT and OT coming to the house. She had a MAW visit at the [facility] about a month/month and half ago. She does plan on coming back to [place] when she is done with PT and OT and will make an appointment to come in and see Dr. Day. OR PHARMACY TECHNICIAN documented in this encounter Plan of Treatment Not on file documented as of this encounter Visit Diagnoses Not on filedocumented in this encounter Care Teams Chemical Engineer Relationship Specialty Start Date End Date Cortney Chandra MD [address] [place] [phone] PCP - General Family Medicine 04/30/19 [facility] 03/30/23 Primary Eye Care 03/30/23 documented as of this encounter Additional Source Comments PLEASE NOTE: Replies to this message will not be received.[facility]
--- OUTSIDE RECORDS SUMMARY | 2024-06-14 18:51 | XMS_ITS | Encounter Summary ---
Author Organization [employer] Address [address] [place] [address] Care Team Providers Care Pharmaceutical Plant Operator Name Role Phone Cortney Chandra MD Primary Care Provider +1- [phone] Reason for Visit * Reason Onset Date Comments Medicare Wellness 05/06/2024 Encounter Details Date Type Department Care Team (Late st Contact Info) Description 05/06/2024 Telephone [facility] [address] [facility] [place], [place] [phone] Ely Ragland CMA Chief Comp: Medicare Wellness Social History Tobacco Use Types Packs/Day Years Used Date Smoking Tobacco: Never Smokeless Tobacco: Never Alcohol Use Standard Drinks/Week Comments Never 0 (1 standard drink = 0.6 oz pur e alcohol) [facility] Utilities Answer Date Recorded In the past [...] and heating? Not hard at all 08/15/2023 [facility] of Occupat ional Health - [...] on filedocumented in this encounter Care Teams Pharmaceutical Plant Operator Relationship Specialty Start Date End Date Cortney Chandra MD [address] [place] [phone] PCP - General Family Medicine 04/30/19 [facility] 03/30/23 Primary Eye Care 03/30/23 documented as of this encounter Additional Source Comments PLEASE NOTE: Replies to this message will not be received.[facility] and [facility]
--- OUTSIDE RECORDS SUMMARY | 2024-06-14 18:51 | XMS_ITS | Encounter Summary ---
Author Organization [employer] Address [address] [place] [address] Care Team Providers Care Mine Environmental Engineer Name Role Phone Cortney Chandra MD Primary Care Provider +1- [phone] Reason for Visit * Reason Onset Date Comments Questions 05/06/2024 Encounter Details Date Type Department Care Team (Late st Contact Info) Description 05/06/2024 Telephone [facility] [address] [facility] [place], [place] [phone] Jodie Alford LPN Chief Comp: Questions Social History Tobacco Use Types Packs/Day Years Used Date Smoking Tobacco: Never Smokeless Tobacco: Never Alcohol Use Standard Drinks/Week Comments Never 0 (1 standard drink = 0.6 oz pur e alcohol) [facility] Utilities Answer Date Recorded In [...] often do you attend chur ch or adventism services? More than 4 times [...] and heating? Not hard at all 08/15/2023 [facility] of Occupat ional Health - Occupational Stress [...] as I think she is still in [place] with October. Can you confirm? * Telephone Encounter - Jodie Alford LPN - 05/06/2024 4:18 PM CDT ----- Message from Lanie sent at 05/06/2024 4:01 PM CDT ----- Regarding: call back Patient was returning call about her MAW. You were not available at time of call. Please call her back [phone] Thank you documented in this encounter Plan of Treatment Not on file documented as of this encounter Visit Diagnoses Not on filedocumented in this encounter Care Teams Mine Environmental Engineer Relationship Specialty Start Date End Date Cortney Chandra MD [address] [place] [phone] PCP - General Family Medicine 04/30/19 [facility] 03/30/23 Primary Eye Care 9/25/23 documented as of this encounter Additional Source Comments PLEASE NOTE: Replies to this message will not be received.[facility] and [facility]
--- OUTSIDE RECORDS SUMMARY | 2024-06-14 18:51 | XMS_ITS | Encounter Summary ---
Author Organization [facility] [facility] Address [address] [place] [address] Care Team Providers Care Food Vendor Name Role Phone Cortney Chandra MD Primary Care Provider +1- [phone] Reason for Visit * Reason Onset Date Comments Questions 04/07/2024 Encounter Details Date Type Department Care Team (Late st Contact Info) Description 04/07/2024 Telephone [facility] [address] [place] [address] Cortney Chandra MD [address] [place] [address] Chief Comp: Questions Social History Tobacco Use Types Packs/Day Years Used Date Smoking Tobacco: Never Smokeless Tobacco: Never Alcohol Use Standard Drinks/Week Comments Never 0 (1 standard drink = 0.6 oz pur e alcohol) [facility] Utilities Answer Date Recorded In the past 12 months has [employer], gas, oil, or water [employer] threatened to shut off services in your [...] and heating? Not hard at all 08/15/2023 [facility] of Occupat ionky Health - Occupational Stress Questionnaire Answer Date [...] PM CDT To: Cortney Chandra Md Nurse [place] Subject: Call Back Fermin from [facility] [place]. Would like a call back at . Aware you will be in the office on Thursday. Thank you. documented in this encounter Plan of Treatment Not on file documented as of this encounter Visit Diagnoses Not on filedocumented in this encounter Care Teams Food Vendor Relationship Specialty Start Date End Date Cortney Chandra MD [address] [place] [address] PCP - General Family Medicine 04/30/19 [facility] 03/30/23 Primary Eye Care 03/30/23 documented as of this encounter Additional Source Comments PLEASE NOTE: Replies to this message will not be received.[facility] and [facility]
--- OUTSIDE RECORDS SUMMARY | 2024-06-14 18:51 | XMS_ITS | Referral Summary ---
Author Organization [facility] Address [address] [place] [address] Care Team Providers Care Lead Recreation Assistant Name Role Phone Cortney Espinosa MD Primary Care Provider [phone] Encounters Date Type Department Care Team Description 05/09/2024 Telephone [place] [phone] [place], [place] [id number] Zahraa Larson RN Chief Comp: Medicare Wellness 05/06/2024 Telephone [place] [phone]. [place], [place] [address] Jodie Alford LPN Chief Comp: Questions 05/06/2024 Telephone [place] [phone] [place], [place] [address] Ely Ragland CMA Chief Comp: Medicare Wellness 04/13/2024 Telephone [place] [address] [place] [address] Daryl Mary, LUCIA Dx: Other hyperlipidemia (Primary Dx) 04/07/2024 Telephone [place] [address] [place] [address] Cortney Espinosa MD Chief Comp: Questions 04/05/2024 Telephone [place] [address] [place] [address] Ingrid George RN Chief Comp: Questions from Last 3 Months Allergies Active Allergy Reactions Criticality Noted Date Comments Tramadol Nausea and / or Vomiting Low 04/29/2019 Medications Medication Sig Dispensed Refills Start Date End Date Status albuterol HFA (AKA: PROVENTIL/VENTOLIN) 90 mcg/actuation inhalation HFA Aerosol Inhaler 1-2 Puffs by inhalation route every 4 hours if needed for shortness of breath. Active R-Y-A-zinc-sod selenate-copper (AKA: OCUVITE, PROSIGHT) 5,000-60-30 nlru-pi-gfoy oral Tablet Take 1 Tablet by mouth [...] Active fluticasone propionate (FLONASE) 50 mcg/actuation nasal [place], SuspensionIndication s:Allergic rhinitis due to pollen, unspecified [...] 75 mg oral Tablet, Delayed Release (E.C.)Indications:Lalitha fisherar back pain TAKE ONE TABLET BY MOUTH [...] Recorded In the past 12 months has [facility] [employer], MtoV, or water [employer] threatened to shut off services in your [...] Comments Blood Pressure 139/81 08/21/2023 9:47 AM DARKROOM WORKER Pulse 77 08/21/2023 9:47 AM DARKROOM WORKER Temperature 36.9 C (98.5 F) 08/21/2023 9:47 AM DARKROOM WORKER Respiratory Rate 18 08/21/2023 9:47 AM DARKROOM WORKER Oxygen Saturation 96% 08/21/2023 9:47 AM DARKROOM WORKER Inhaled Oxygen Concentration - - Weight 73 kg (161 lb) 08/21/2023 9:47 AM DARKROOM WORKER Height 161.1 cm (5' 3.43) 03/30/2023 10:53 [...] GLYCOSYLATED HEMOGLOBIN, A1C Routine 09/10/2023 9:59 AM DARKROOM WORKER Type 2 diabetes mellitus with stage 1 [...] EYE EXAM - EXTERNAL (12/25/2023) RETINOPATHY Negative [facility] Cortney Espinosa MD NURSING COMMUNICAT ION Performing Organization Address City/[facility]/ZIP Co de Phone Number [address] [address], [place] [phone] * GLYCOSYLATED HEMOGLOBIN, A1C (09/10/2023 9:59 AM DARKROOM WORKER) Hemoglobin A1c 6.3 <=6.4 % 09/10/2023 10:27 AM DARKROOM WORKER [facility] Estimated Average Glucose 134 mg/dL 09/10/2023 10:27 AM DARKROOM WORKER [facility] Blood VENOUS BLOOD / Unknown Venipuncture / Unknown 09/10/2023 9:59 AM DARKROOM WORKER 09/10/2023 9:59 AM DARKROOM WORKER Cortney Espinosa MD LAB CHEMISTRY ORDE RABLES [address] [address], [place] [phone] * MICROALBUMIN, RANDOM, URINE (03/30/2023 11:28 AM CDT) Microalbumin, Urine <12.0 mg/L 03/30/2023 1:46 PM CDT [facility] Creatinine, Urine 71.1 mg/dL 03/30/2023 1:46 PM CDT [facility] Microalbumin/Cr eatinine Ratio 03/30/2023 1:46 PM CDT [facility] Comment: Unable to calculate ratio due to decreased Microalbumin. Normal: <30 Microalbuminuria: 30-299 Clinical Microalbuminuria: >300 Urine SPOT URINE SPECIMEN / Unknown Non-blood Collection / Unknown 03/30/2023 11:28 AM CDT 03/30/2023 11:28 AM CDT Cortney Espinosa MD LAB URINE ORDERABL ES Performing Organization Address City/[facility]/ZIP Co de Phone Number [facility] [address] [place] [address], [place] [phone] * (ABNORMAL) LIPID PANEL (03/30/2023 11:28 AM CDT) Cholesterol 138 0 - 200 mg/dL 03/30/2023 1:39 PM CDT [facility] Triglycerides 86 0 - 150 mg/dL 03/30/2023 1:39 PM T [facility] Cholesterol, LDL (Calculated) 69 <=100 mg/dL 03/30/2023 1:39 PM T [facility] Cholesterol, HDL 52(L) 60 - 150 mg/dL 03/30/2023 1:39 PM T [facility] Cholesterol, vLDL 17 0 - 130 mg/dL 03/30/2023 1:39 PM T [facility] Fasting Status Yes 03/30/2023 1:39 PM T [facility] Blood VENOUS BLOOD / Unknown Venipuncture / Unknown 03/30/2023 11:28 AM CDT 03/30/2023 11:28 AM CDT Cortney Espinosa MD LAB CHEMISTRY ORDE RABLES Performing Organization Address City/[facility]/ZIP Co de Phone Number [facility] [address] [place] [address], [place] [phone] * DEXA HIP AND SPINE (02/26/2021 10:38 [...] PM CDT) 03/01/2020 12:0 1 PM CDT [facility] GI - 03/01/2020 1:05 PM CDT Patient Name: SUMAYA GALVAN Procedure Date: 03/01/2020 Date of : 1950 Attending MD: BILLY ESPINOSA MD Referring MD CORTNEY ESPINOSA Additional Staff Jade Copeland, Blanket Binder; Malini Quiros RN Patient Profile - Refer [...] without bleeding Diagnosis Code(s)CPT(R) - 2019 copyright [employer]. All Rights Reserved. Diagnosis Code(s)The CPT codes, CCI edits and ICD codes generated are intended as suggestions and were generated based on input data. These codes are preliminary and upon freight sorter review may be revised to meet current compliance and payer requirements. The provider is responsible for the final determination of appropriate codes, and modifiers. Scope Withdrawal Time 00:12:06 Signature Name: Billy Espinosa Signature Statement:This document has been electronically signed. Note Initiated On:03/01/2020 Signature Date:03/01/2020 1:05 PM Cortney Espinosa MD GI PROCEDURES [facility] [address] [place] [address], from Last 3 Months or Most Recently Relevant to Health Maintenance Advance Directives Documents on File Type Date Recorded Patient Sample Cutter Expl anation Physician Orders for Life-Sustaining Treatment (POLST) 05/18/2023 2:28 PM POLST POLST-S 04/03/2023 2:26 PM Advanced Directives 06/06/2020 1:42 PM CRS [facility] Care Directive-S 02/17/2005 1:42 PM Care Teams Lead Recreation Assistant Relationship Specialty Start Date End Date Cortney Espinosa MD [address] [place] [phone] PCP - General Family Medicine 04/30/19 [facility] 03/30/23 Primary Eye Care 03/30/23 Additional Source Comments PLEASE NOTE: Replies to this message will not be received.[facility]
--- OUTSIDE RECORDS SUMMARY | 2024-06-14 18:52 | XMS_ITS | Encounter Summary ---
Author Organization [employer] Address [address] [place] [address] Care Team Providers Care Docket Clerk Name Role Phone Unknown, Provider Primary Care Provider UnavailCortney Dye MD Unavailable Cortney Chandra MD Primary Care Provider [phone] Encounter Details Date Type Department Care Team (Late st Contact Info) Description 12/25/2016 Historical Conversion [facility] Family Medicine [address] [place] [address]. [place] [address] Social History Tobacco Use Types Packs/Day Years [...] Body Mass Index 31.77 08/19/2016 12:00 AM GRADES 1 6 TUTOR documented in this encounter Plan of Treatment Not on file documented as of this encounter Visit Diagnoses Not on filedocumented in this encounter Care Teams Docket Clerk Relationship Specialty Start Date End Date Unknown, [place] [address] PCP - General 03/26/18 04/29/19 Cortney Chandra MD [address] [place] [address] PCP - General Family Medicine 04/30/19 Cortney Chandra MD [address] [place] [address] PCP Family Medicine 04/29/19 04/29/19 [facility] 03/30/23 Primary Eye Care 03/30/23 documented as of this encounter Additional Source Comments PLEASE NOTE: Replies to this message will not be received.[facility] and [facility]
--- OUTSIDE RECORDS SUMMARY | 2024-06-14 18:52 | XMS_ITS | Encounter Summary ---
Author Organization [employer] Address [address] [place] [address] Care Team Providers Care Make Up Artist Name Role Phone Unknown, Provider Primary Care Provider Unavaila Cortney Gomez MD Unavailable [phone] Cortney Chandra MD Primary Care Provider [phone] Encounter Details Date Type Department Care Team (Late st Contact Info) Description 06/16/2017 Historical Conversion [facility] Family Medicine [address] [place] [address] Rosalia Lopez MD Social History Tobacco Use Types Packs/Day Years Used Date Smoking Tobacco: Never Assessed Sex and Gender Information Value Date Recorded Sex Assigned at Not on file Gender Identity Female 01/16/2023 2:23 PM CDT Sexual Orientation Not on file documented as of this encounter Last Filed Vital Signs Vital Sign Reading Time Taken Comments Blood Pressure 136/81 06/16/2017 12:00 AM IC DESIGNER GATE ARRAYS Pulse - - Temperature - - Respiratory Rate - - Oxygen Saturation - - Inhaled Oxygen Concentration - - Weight 86.5 kg (190 lb 11.2 oz) 017 12:00 AM IC DESIGNER [employer]ATE ARRA[employer] Height - - Body Mass Index 32.56 08/19/2016 12:00 AM IC DESIGNER GATE ARRAYS documented in this encounter Progress Notes * Rosalia Lopez MD - 06/16/2017 12:00 AM CST DERMATOLOGY OCTAVIO GALVAN : 1950 HX: [id number] DOS: 06/16/2017 CHIEF COMPLAINT: History of squamous [...] lesion. Rosalia Lopez M.D./ cc: Cortney Chandra M.D./[facility] Electronically signed by:Rosalia Lopez M.D. Jun 23 2017 8:25AM IC DESIGNER [employer] documented in this encounter Plan of Treatment Not on file documented as of this encounter Visit Diagnoses Not on filedocumented in this encounter Care Teams Make Up Artist Relationship Specialty Start Date End Date Unknown, Provider . [place] [address] PCP - General 03/26/18 04/29/19 Cortney Chandra MD [address] [place] [phone] PCP - General Family Medicine 04/30/19 Cortney Chandra MD [address] [place] [address] PCP Family Medicine 04/29/19 04/29/19 [facility] 03/30/23 Primary Eye Care 03/30/23 documented as of this encounter Additional Source Comments PLEASE NOTE: Replies to this message will not be received.[facility] and [facility]
--- OUTSIDE RECORDS SUMMARY | 2024-06-14 18:52 | XMS_ITS | Encounter Summary ---
Author Organization [employer] Address [address] [place] [address] Care Team Providers Care Pulp Roller Name Role Phone Unknown, Provider Primary Care Provider Unavaila ble Cortney Chandra MD Unavailable [phone] Cortney Chandra MD Primary Care Provider [phone] Encounter Details Date Type Department Care Team (Late st Contact Info) Description 07/20/2015 Historical Conversion [facility] Family Medicine [address] [place] [address] [place] [address] Cortney Chandra MD [address] [place] [address] Social History Tobacco Use Types [...] 81 MG Oral Tablet; ONE DAILY; Last Rx:[id number] Ordered 2. Calcium 600/Vitamin D3 TABS; 1 [...] DAILY IN EACH NOSTRIL; Therapy: 17Apr2009 to (Evaluate:47Kpg7391) Requested for: 09May2014; Last Rx:09May2014 Ordered 6. Loratadine 10 MG Oral Tablet; TAKE 1 TABLET BY MOUTH DAILY NEEDED; Therapy: 71Xfw9074 to (Evaluate:99Nzn0392) Requested for: 46Ifj3214; Last Rx:[id number] Ordered 7. Losartan Potassium 100 MG Oral Tablet; TAKE 1 TABLET BY MOUTH ONCE DAILY; Therapy: 77Kau8167 to (Evaluate:22Cpw3239) Requested for: 13Feb2015; Last Rx:[id number] Ordered 8. MetFORMIN HCl ER 500 MG Oral Tablet Extended Release 24 Hour; TAKE 4 TABLETS( 2000MG) BY MOUTH ONCE DAILY; Therapy: 90Nrk7140 to (Evaluate:40Oxp2347) Requested for: 13Feb2015; Last Rx:13Feb2015 Ordered 9. One-Daily Multi Vitamins Oral Tablet; TAKE 1 TABLET DAILY; Therapy: (Recorded:23Jul2012) to Recorded 10. ProAir HFA 108 (90 Base) MCG/ACT Inhalation Aerosol Solution; INHALE 2 PUFFS EVERY 4 HOURS NEEDED FOR COUGHAND WHEEZE; Therapy: 26May2008 to (Last Rx:14May2015) Requested for: 14May2015 Ordered 11. Simvastatin 20 MG Oral Tablet; TAKE ONE TABLET BY MOUTH DAILY; Therapy: 93Gmu2856 to (Evaluate:11Jul2016) Requested for: 17Jul2015; Last Rx:17Jul2015 [...] Never smoked Review of Systems Female Complete [facility] [employer] [facility]: Constitutional: no fever and no chills. [...] is a 65-year-old recently retired employee from [employer] that is here for her first [...] Cortney Chandra M.D.; Aug 07 2015 1:15PM AUTOMATION AND CONTROLS MANAGER documented in this encounter Plan of Treatment Not on file documented as of this encounter Visit Diagnoses Not on filedocumented in this encounter Care Teams Pulp Roller Relationship Specialty Start Date End Date Unknown, Provider . [place] [address] PCP - General 03/26/18 04/29/19 Cortney Chandra MD [address] [facility] [place] [address] PCP - General Family Medicine 04/30/19 Cortney Chandra MD [address] [place] [address] PCP Family Medicine 04/29/19 04/29/19 [facility] 03/30/23 Primary Eye Care 03/30/23 documented as of this encounter Additional Source Comments PLEASE NOTE: Replies to this message will not be received.[facility] and [facility]
--- OUTSIDE RECORDS SUMMARY | 2024-06-14 18:52 | XMS_ITS | Encounter Summary ---
Author Organization [employer] Address [address] [place] [address] Care Team Providers Care Game Moderator Name Role Phone Unknown, Provider Primary Care Provider Unavaila ble Cortney Chandra MD Unavailable [phone] Cortney Chandra MD Primary Care Provider [phone] Encounter Details Date Type Department Care Team (Late st Contact Info) Description 09/01/2014 Historical Conversion [facility] Medicine [address] [place] [address]. 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 Aspirin 81 MG Oral [...] BY MOUTH NEEDED; Therapy: 30Sep2010 to (Last Rx:[id number]) Requested for: 60Pjf7806 Ordered 5. Fluticasone Propionate 50 MCG/ACT Nasal Suspension; INSTILL 1 SPRAY DAILY IN EACH NOSTRIL; Therapy: 17Apr2009 to (Evaluate:27Gkp0734) Requested for: 09May2014; Last Rx:09May2014 Ordered 6. Hydrochlorothiazide 25 MG Oral Tablet; TAKE ONE TABLET EVERY MORNING; Therapy: 26May2008 to (Evaluate:17Bog4193) Requested for: 53Ffb8142; Last Rx:[id number] Ordered 7. Loratadine 10 MG Oral Tablet; TAKE 1 TABLET BY MOUTH DAILY NEEDED; Therapy: 40Wee1950 to (Evaluate:37Xod1388) Requested for: 04Jun2014; Last Rx:04Jun2014 Ordered 8. Losartan Potassium 100 MG Oral Tablet; TAKE 1 TABLET BY MOUTH ONCE DAILY; Therapy: 54Ufq5590 to (Evaluate:61Jug5431) Requested for: 13Feb2014; Last Rx:[id number] Ordered 9. MetFORMIN HCl ER 500 MG Oral Tablet Extended Release 24 Hour; TAKE 4 TABLETS( 2000MG) BY MOUTH ONCE DAILY; Therapy: 29Cfp2298 to (Evaluate:38Gcj2789) Requested for: 02Mqp5657; Last Rx:69Rau9615 Ordered 10. One-Daily Multi Vitamins Oral Tablet; TAKE 1 TABLET DAILY; Therapy: (Recorded:23Jul2012) to Recorded 11. ProAir HFA 108 (90 Base) MCG/ACT Inhalation Aerosol Solution; INHALE 2 PUFFS EVERY 4 HOURS NEEDED FOR COUGHAND WHEEZE; Therapy: 26May2008 to (Last Rx:09May2014) Requested for: 09May2014 Ordered 12. Simvastatin 20 MG Oral Tablet; TAKE ONE TABLET BY MOUTH DAILY; Therapy: 05Oxu7323 to (Evaluate:04Dec2014) Requested for: 09Dec2013; Last Rx:09Dec2013 [...] Vital Signs [Data Includes: Current Encounter] Recorded: 05Bzg2720 08:19AM Blood Pressure 130 / 80, LUE, [...] Cortney Chandra M.D.; Sep 15 2014 10:14AM BARREL STRAIGHTENER documented in this encounter Plan of Treatment Not on file documented as of this encounter Visit Diagnoses Not on filedocumented in this encounter Care Teams Game Moderator Relationship Specialty Start Date End Date Unknown, Provider . [place] [address] PCP - General 03/26/18 04/29/19 Cortney Chandra MD [address] [place] [address] PCP - General Family Medicine 04/30/19 Cortney Chandra MD [address] [place] [address] PCP Family Medicine 04/29/19 04/29/19 [facility] 03/30/23 Primary Eye Care 03/30/23 documented as of this encounter Additional Source Comments PLEASE NOTE: Replies to this message will not be received.[facility] and [facility]
--- OUTSIDE RECORDS SUMMARY | 2024-06-14 18:52 | XMS_ITS | Encounter Summary ---
Author Organization [employer] Address [address] [place] [address] Care Team Providers Care Field Logistics Coordinator Name Role Phone Unknown, Provider Primary Care Provider UnavailCortney Dye MD Unavailable [phone] Cortney Chandra MD Primary Care Provider [phone] Encounter Details Date Type Department Care Team (Late st Contact Info) Description 09/03/2017 Historical Conversion [facility] Family Medicine [address] [facility] [place] [address] Rosemary Aquino APRN,RISK AND INSURANCE CONSULTANT [address] [place] [phone] Social History Tobacco Use Types Packs/Day Years Used Date Smoking Tobacco: Never Assessed Sex and Gender Information Value Date Recorded Sex Assigned at Not on file Gender Identity Female 01/16/2023 2:23 PM CDT Sexual Orientation Not on file documented as of this encounter Progress Notes * Rosemary Aquino, HCALINO,RISK AND INSURANCE CONSULTANT - 09/03/2017 12:00 AM CST Assessment 1. [...] TO 6 HOURS NEEDED; Therapy: 05Oct2012 to (Evaluate:45Ykl7899); Last Rx:08Aug2016 Ordered 3. Cyclobenzaprine HCl - 10 MG Oral Tablet; TAKE 1/2 TO 1 TABLET THREE TIMES DAILY; Therapy: 30Sep2010 to (Evaluate:07Gia9284) Requested for: 07Jul2016; Last Rx:07Jul2016 Ordered 4. Fluticasone Propionate 50 MCG/ACT Nasal Suspension; INSTILL 1 SPRAY DAILY IN EACH NOSTRIL; Therapy: 17Apr2009 to (Evaluate:15Dec2016) Requested for: 87Zhy9252; Last Rx:87Ite7236 Ordered 5. Hydrocortisone 2.5 % External Cream; APPLY SPARINGLY TO AFFECTED AREA(S) TWICE DAILY; Therapy: 20Jul2015 to (Evaluate:75Bpu2860) Requested for: 17Jul2017; Last Rx:17Jul2017 Ordered 6. Loratadine 10 MG Oral Tablet; TAKE 1 TABLET BY MOUTH DAILY NEEDED; Therapy: 50Oaz0884 to (Evaluate:12Sep2017) Requested for: 17Sep2016; Last Rx:17Sep2016 Ordered 7. Losartan Potassium 100 MG Oral Tablet; TAKE 1 TABLET BY MOUTH ONCE DAILY; Therapy: 59Thi0062 to (Evaluate:12Jul2018) Requested for: 17Jul2017; Last Rx:17Jul2017 Ordered 8. MetFORMIN HCl ER 500 MG Oral Tablet Extended Release 24 Hour; TAKE 4 TABLETS( 2000MG) BY MOUTH ONCE DAILY; Therapy: 79Hwn8132 to (Evaluate:12Jul2018) Requested for: 17Jul2017; Last Rx:17Jul2017 Ordered 9. One-Daily Multi Vitamins Oral Tablet; TAKE 1 TABLET DAILY; Therapy: (Recorded:23Jul2012) to Recorded 10. Simvastatin 20 MG Oral Tablet; TAKE ONE TABLET BY MOUTH DAILY; Therapy: 62Zkz8814 to (Evaluate:12Jul2018) Requested for: 17Jul2017; Last Rx:17Jul2017 [...] Electronically signed by : Rosemary Aquino RN RISK AND INSURANCE CONSULTANT RN,RISK AND INSURANCE CONSULTANT; Sep 03 2017 5:41PM CARTOGRAPHY TEACHER Electronically signed by Rosemary Aquino, HARDWARE TRAINER,RISK AND INSURANCE CONSULTANT at 11/25/2018 5:37 PM CDT documented in this encounter Plan of Treatment Not on file documented as of this encounter Visit Diagnoses Not on filedocumented in this encounter Care Teams Field Logistics Coordinator Relationship Specialty Start Date End Date Unknown, Provider . HIRAM PEGUERO [address] PCP - General 03/26/18 04/29/19 Cortney Chandra MD [address] [place] [address] [phone] PCP - General Family Medicine 04/30/19 Cortney Chandra MD [address] [place] [address] [address] PCP Family Medicine 04/29/19 04/29/19 [facility] 03/30/23 Primary Eye Care 03/30/23 documented as of this encounter Additional Source Comments PLEASE NOTE: Replies to this message will not be received.[facility] and [facility]
--- OUTSIDE RECORDS SUMMARY | 2024-06-14 18:52 | XMS_ITS | Encounter Summary ---
Author Organization [employer] Address [address] [place] [address] Care Team Providers Care Financial Intern Name Role Phone Unknown, Provider Primary Care Provider Unavaila ble Cortney Chandra MD Unavailable [phone] Cortney Chandra MD Primary Care Provider [phone] Encounter Details Date Type Department Care Team (Late st Contact Info) Description 11/18/2013 Historical Conversion [facility] Family Medicine [address] [place] [address] [place] [address] Cortney Chandra MD [address] [place] [address] Social History Tobacco Use Types [...] Encounter] Recorded by : Marya Lyons at 16Ruw4185 10:47AM Blood Pressure 118 / 70, LUE, [...] on filedocumented in this encounter Care Teams Financial Intern Relationship Specialty Start Date End Date Unknown, Provider . HIR[place] PEGU[place] [address] PCP - General 03/26/18 04/29/19 Cortney Chandra MD [address] [place] [address] PCP - General Family Medicine 04/30/19 Cortney Chandra MD [address] [place] [address] PCP Family Medicine 04/29/19 04/29/19 [facility] 03/30/23 Primary Eye Care 03/30/23 documented as of this encounter Additional Source Comments PLEASE NOTE: Replies to this message will not be received.[facility]
--- OUTSIDE RECORDS SUMMARY | 2024-06-14 18:52 | XMS_ITS | Encounter Summary ---
Author Organization [employer] Address [address] [place] [address] Care Team Providers Care Sample Tester Name Role Phone Unknown, Provider Primary Care Provider Unavaila Cortney Gomez MD Unavailable [phone] Cortney Chandra MD Primary Care Provider [phone] Encounter Details Date Type Department Care Team (Late st Contact Info) Description 03/26/2018 Historical Conversion [facility] Family Medicine [address] [place] [address]. [place] [address] Angeles Hartman, CHALINO,DIRECTOR LIFE SALES [address] [place] [address] Social History Tobacco Use Types Packs/Day Years Used Date Smoking Tobacco: Never Assessed Sex and Gender Information Value Date Recorded Sex Assigned at Not on file Gender Identity Female 01/16/2023 2:23 PM CDT Sexual Orientation Not on file documented as of this encounter Progress Notes * Angeles Hartman, CHALINO,DIRECTOR LIFE SALES - 03/26/2018 12:00 AM CDT Assessment 1. [...] or if you almost fall.; Status:Complete; Done: 01Mdz6322 At your visit today we screened for [...] or seek medical attention immediately.; Status:Complete; Done: 48Aom9929 Dystrophic nail, Onychomycosis Fungus Culture (Skin.Hair,Nails ONLY); Status:Active; Requested for:55Pux0866; culture skin source : left thumb nail SocHx: Never smoked Never Smoked: Since tobacco use can have significant health risks, you are helping yourself and others stay healthy by never smoking.; Status:Complete; Done: 66Vjf8280 Reason For Visit Discoloration of finger nails [...] Aspirin 81 MG TABS; ONE DAILY; Last Rx:58Mob9847 Ordered 2. Cheratussin AC 100-10 MG/5ML Oral Syrup; TAKE 10 ML EVERY 4 TO 6 HOURS NEEDED; Therapy: 05Oct2012 to (Evaluate:86Zkc6662); Last Rx:11Sla4857 Ordered 3. Cyclobenzaprine HCl - 10 MG Oral Tablet; TAKE 1/2 TO 1 TABLET THREE TIMES DAILY; Therapy: 30Sep2010 to (Evaluate:19Foo3179) Requested for: 07Jul2016; Last Rx:07Jul2016 Ordered 4. Fluticasone Propionate 50 MCG/ACT Nasal Suspension; INSTILL 1 SPRAY DAILY IN EACH NOSTRIL; Therapy: 17Apr2009 to (Evaluate:14Apr2018) Requested for: 16Oct2017; Last Rx:16Oct2017 Ordered 5. Hydrocortisone 2.5 % External Cream; APPLY SPARINGLY TO AFFECTED AREA(S) TWICE DAILY; Therapy: 20Jul2015 to (Evaluate:36Bgw2652) Requested for: 17Jul2017; Last Rx:17Jul2017 Ordered 6. Loratadine 10 MG Oral Tablet; TAKE 1 TABLET BY MOUTH DAILY NEEDED; Therapy: 53Rll3894 to (Evaluate:12Sep2018) Requested for: 17Sep2017; Last Rx:17Sep2017 Ordered 7. Losartan Potassium 100 MG Oral Tablet; TAKE 1 TABLET BY MOUTH ONCE DAILY; Therapy: 73Rps9375 to (Evaluate:12Jul2018) Requested for: 17Jul2017; Last Rx:17Jul2017 Ordered 8. MetFORMIN HCl ER 500 MG Oral Tablet Extended Release 24 Hour; TAKE 4 TABLETS( 2000MG) BY MOUTH ONCE DAILY; Therapy: 00Pcd0864 to (Evaluate:12Jul2018) Requested for: 17Jul2017; Last Rx:17Jul2017 Ordered 9. One-Daily Multi Vitamins Oral Tablet; TAKE 1 TABLET DAILY; Therapy: (Recorded:23Jul2012) to Recorded 10. Simvastatin 20 MG Oral Tablet; TAKE ONE TABLET BY MOUTH DAILY; Therapy: 63Zym4780 to (Evaluate:12Jul2018) Requested for: 17Jul2017; Last Rx:17Jul2017 Ordered 11. Ventolin HFA 108 (90 Base) MCG/ACT Inhalation Aerosol Solution; INHALE 1 TO 2 PUFFS EVERY 4 TO 6 HOURS NEEDED; Therapy: 06Mar2017 to (Last Rx:06Mar2017) Requested for: 06Mar2017 Ordered 12. Vitamin D3 1000 UNIT Oral Tablet; takes 2 tablets daily; Therapy: (Recorded:28Qhz2406) to Recorded Allergies 1. Ultram TABS Vitals [...] other 8 fingers are covered with nail korean but the 2 thumbs show blackdiscoloration under [...] Electronically signed by : Angeles Hartman RN DIRECTOR LIFE SALES RN,DIRECTOR LIFE SALES; Mar 26 2018 1:29PM PRODUCTION PACKAGER documented in this encounter Plan of Treatment Not on file documented as of this encounter Visit Diagnoses Not on filedocumented in this encounter Care Teams Sample Tester Relationship Specialty Start Date End Date Unknown, Provider . HIRAM PEGUERO [id number] PCP - General 03/26/18 04/29/19 Cortney Chandra MD [address] [place] [address] PCP - General Family Medicine 04/30/19 Cortney Chandra MD [address] [place] [address] PCP Family Medicine 04/29/19 04/29/19 [facility] 03/30/23 Primary Eye Care 03/30/23 documented as of this encounter Additional Source Comments PLEASE NOTE: Replies to this message will not be received.[facility] and [facility]
--- OUTSIDE RECORDS SUMMARY | 2024-06-14 18:52 | XMS_ITS | Encounter Summary ---
Author Organization [employer] Address [address] [place] [address] Care Team Providers Care Fire Sprinkler Service Technician Name Role Phone Unknown, Provider Primary Care Provider Unavaila Cortney Gomez MD Unavailable [phone] Cortney Chandra MD Primary Care Provider [phone] Encounter Details Date Type Department Care Team (Late st Contact Info) Description 11/07/[address] [facility] Family Medicine [address] [place] [address]. [place] [address] Cortney Chandra MD [address] [place] [address] Social History Tobacco Use Types [...] on filedocumented in this encounter Care Teams Fire Sprinkler Service Technician Relationship Specialty Start Date End Date Unknown, Provider . HIRAM PEGUERO [id number] PCP - General 03/26/18 04/29/19 Cortney Chandra MD [address] [place] [address] PCP - General Family Medicine 04/30/19 Cortney Chandra MD [address] [place] [address] PCP Family Medicine 04/29/19 04/29/19 [facility] 03/30/23 Primary Eye Care 03/30/23 documented as of this encounter Additional Source Comments PLEASE NOTE: Replies to this message will not be received.[facility] and [facility]
--- OUTSIDE RECORDS SUMMARY | 2024-06-14 18:52 | XMS_ITS | Encounter Summary ---
Author Organization [employer] Address [address] [place] [address] Care Team Providers Care Production Expert Name Role Phone Unknown, Provider Primary Care Provider Unavaila ble Cortney Chandra MD Unavailable [phone] Cortney Chandra MD Primary Care Provider [phone] Encounter Details Date Type Department Care Team (Late st Contact Info) Description 07/20/2015 Historical Conversion [facility] Family Medicine [address] [place] [address]. [place] [address] Cortney Chandra MD [address] [place] [address] Social History Tobacco Use Types Packs/Day Years Used Date Smoking Tobacco: Never Assessed Sex and Gender Information Value Date Recorded Sex Assigned at Not on file Gender Identity Female 01/16/2023 2:23 PM CDT Sexual Orientation Not on file documented as of this encounter Last Filed Vital Signs Vital Sign Reading Time Taken Comments Blood Pressure 132/76 07/20/2015 12:00 AM DAIRY AND FOOD LABORATORY ASSISTANT Pulse - - Temperature - - Respiratory Rate - - Oxygen Saturation - - Inhaled Oxygen Concentration - - Weight 87.1 kg (192 lb 0.3 oz) 07/20/2015 12:00 AM DAIRY AND FOOD LABORATORY ASSISTANT Height 164 cm (5' 4.57) 07/20/2015 12:00 AM DAIRY AND FOOD LABORATORY ASSISTANT Body Mass Index 32.79 07/20/2015 12:00 AM DAIRY AND FOOD LABORATORY ASSISTANT documented in this encounter Plan of Treatment Not on file documented as of this encounter Visit Diagnoses Not on filedocumented in this encounter Care Teams Production Expert Relationship Specialty Start Date End Date Unknown, Provider . HIRAM PEGUERO [id number] PCP - General 03/26/18 04/29/19 Cortney Chandra MD [address] [place] [address] PCP - General Family Medicine 04/30/19 Cortney Chandra MD [address] [place] [address] PCP Family Medicine 04/29/19 04/29/19 [facility] 03/30/23 Primary Eye Care 03/30/23 documented as of this encounter Additional Source Comments PLEASE NOTE: Replies to this message will not be received.[facility] and [facility]
--- OUTSIDE RECORDS SUMMARY | 2024-06-14 18:52 | XMS_ITS | Encounter Summary ---
Author Organization [employer] Address [address] [place] [address] Care Team Providers Care Viscosity Inspector Name Role Phone Unknown, Provider Primary Care Provider Unavaila ble Cortney Chandra MD Unavailable [phone] Cortney Chandra MD Primary Care Provider [phone] Encounter Details Date Type Department Care Team (Late st Contact Info) Description 08/10/2015 Historical Conversion [facility] Family Medicine [address] [place] [address] [place] [address] Cortney Chandra MD [address] [place] [address] Social History Tobacco Use Types [...] for c/o pain/tingling in Rt. arm. 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 Allergic rhinitis [...] 81 MG Oral Tablet; ONE DAILY; Last Rx:72Fbt2632 Ordered 2. Calcium 600/Vitamin D3 TABS; 1 [...] DAILY IN EACH NOSTRIL; Therapy: 17Apr2009 to (Evaluate:01Gta5959) Requested for: 09May2014; Last Rx:09May2014 Ordered 6. Hydrocortisone 2.5 % External Cream; APPLY SPARINGLY TO AFFECTED AREA(S) TWICE DAILY; Therapy: 20Jul2015 to (Last Rx:20Jul2015) Requested for: 20Jul2015 Ordered 7. Loratadine 10 MG Oral Tablet; TAKE 1 TABLET BY MOUTH DAILY NEEDED; Therapy: 41Oud7529 to (Evaluate:17Vao4999) Requested for: 68Jfa3531; Last Rx:30Chg0414 Ordered 8. Losartan Potassium 100 MG Oral Tablet; TAKE 1 TABLET BY MOUTH ONCE DAILY; Therapy: 88Rlm1055 to (Evaluate:14Jul2016) Requested for: 20Jul2015; Last Rx:20Jul2015 Ordered 9. MetFORMIN HCl ER 500 MG Oral Tablet Extended Release 24 Hour; TAKE 4 TABLETS( 2000MG) BY MOUTH ONCE DAILY; Therapy: [address] to (Evaluate:14Jul2016) Requested for: 20Jul2015; Last Rx:20Jul2015 [...] TAKE ONE TABLET BY MOUTH DAILY; Therapy: 35Fpt4687 to (Evaluate:14Jul2016) Requested for: 20Jul2015; Last Rx:20Jul2015 [...] Vital Signs [Data Includes: Current Encounter] Recorded: 47Vfn5541 02:56PM Blood Pressure 136 / 92, RUE, [...] traction would benefit Status: Active Requested for: 26Tiw5364 Care Summary provided. : Yes With: : [facility] PT/OT DEPT Related: : No Encounter: : No Phone Number to Contact Patient: : home [phone] to Provider, Practice or Agency: : PT at [facility] 2. PredniSONE 20 MG Oral Tablet; TAKE 2 TABLET DAILY Signatures Electronically signed by : Cortney Chandra M.D.; Aug 22 2015 9:54AM NEWS CLIPPING CUTTER documented in this encounter Plan of Treatment Not on file documented as of this encounter Visit Diagnoses Not on filedocumented in this encounter Care Teams Viscosity Inspector Relationship Specialty Start Date End Date Unknown, Provider . HIRAM PEGUERO [id number] PCP - General 03/26/18 04/29/19 Cortney Chandra MD [address] [place] [address] PCP - General Family Medicine 04/30/19 Cortney Chandra MD [address] [place] [address] PCP Family Medicine 04/29/19 04/29/19 [facility] 03/30/23 Primary Eye Care 03/30/23 documented as of this encounter Additional Source Comments PLEASE NOTE: Replies to this message will not be received.[facility] and [facility]
--- OUTSIDE RECORDS SUMMARY | 2024-06-14 18:52 | XMS_ITS | Encounter Summary ---
Author Organization [employer] Address [address] [place] [address] Care Team Providers Care Swatcher Name Role Phone Unknown, Provider Primary Care Provider Unavaila ble Cortney Chandra MD Unavailable [phone] Cortney Chandra MD Primary Care Provider [phone] Encounter Details Date Type Department Care Team (Late st Contact Info) Description 09/28/2018 Historical Conversion [facility] Family Medicine [address] [place] [address]. [place] [address] Cortney Chandra MD [address] [place] [address] Social History Tobacco Use Types [...] TABLET THREE TIMES DAILY; Therapy: 30Sep2010 to (Evaluate:80Rxl0004) Requested for: 07Jul2016; Last Rx:07Jul2016 Ordered 3. Fluticasone Propionate 50 MCG/ACT Nasal Suspension; INSTILL 1 SPRAY DAILY IN EACH NOSTRIL; Therapy: 17Apr2009 to (Evaluate:14Apr2018) Requested for: 39Vto6053; Last Rx:16Oct2017 Ordered 4. Hydrocortisone 2.5 % External Cream; APPLY SPARINGLY TO AFFECTED AREA(S) TWICE DAILY; Therapy: 20Jul2015 to (Evaluate:08Aju3682) Requested for: 10Sep2018; Last Rx:10Sep2018 Ordered 5. Loratadine 10 MG Oral Tablet; TAKE 1 TABLET BY MOUTH DAILY NEEDED; Therapy: 65Tgz1832 to (Last Rx:10Sep2018) Requested for: 10Sep2018 Ordered 6. Losartan Potassium 100 MG Oral Tablet; TAKE 1 TABLET BY MOUTH ONCE DAILY; Therapy: 26Cjj5761 to (Evaluate:10Jul2019) Requested for: 15Jul2018; Last Rx:15Jul2018 Ordered 7. metFORMIN HCl ER 500 MG Oral Tablet Extended Release 24 Hour; TAKE 4 TABLETS( 2000MG) BY MOUTH ONCE DAILY; Therapy: 80Tnk5747 to (Evaluate:18Jul2019) Requested for: 23Jul2018; Last Rx:23Jul2018 Ordered 8. Pyridium 100 MG Oral Tablet; TAKE 1 TABLET 3 TIMES DAILY AFTER MEALS NEEDED; Therapy: 39Nkt9970 to (Last Rx:57Khg9110) Requested for: 36Von0617 Ordered 9. Simvastatin 20 MG Oral Tablet; TAKE ONE TABLET BY MOUTH DAILY; Therapy: 93Vcs8390 to (Evaluate:10Jul2019) Requested for: 15Jul2018; Last Rx:15Jul2018 Ordered 10. Ventolin HFA 108 (90 Base) MCG/ACT Inhalation Aerosol Solution; INHALE 1 TO 2 PUFFS EVERY 4 TO 6 HOURS NEEDED; Therapy: 92Ebb3086 to (Last Rx:58Orw8569) Requested for: 55Piv1067 Ordered 11. Vision Vitamins Oral Tablet; TAKE 1 TABLET DAILY; Therapy: 28Sep2018 to Recorded 12. Vitamin D3 1000 UNIT Oral Tablet; takes 2 tablets daily; Therapy: (Recorded:16Iwl7107) to Recorded Allergies 1. Ultram TABS Vitals [...] External ears and nose are normal to inspection.\R\r8Tkpgjwit membranes clear bilaterally.\R\b0Lips, teeth, and gum are normal, good dentition.\R\r6Vxbejaqovn is normal with no erythema, edema, exudate or lesions. Neck Neck is supple and symmetric. The trachea is midline with no masses.\R\o8Zpezul thyroid with no thyromegaly. Pulmonary Lungs are clear to auscultation. Cardiovascular Normal rate and rhythm, normal S1 and S2, no murmurs.\R\n6Vhynotj pulses are 2+ bilaterally without bruit.\R\p4Kkqhxxu pulses are 2+ bilaterally.\R\w6Qyogc pulses are 2+ bilaterally.\R\b0No edema and/or varicosities. Chest Normal breasts with no dimpling or skin changes appreciated.\R\b0No breast or axillary massespalpated. Abdomen hemorrhoids noted, not acutely inflamed\R\b0Soft, non-tender with no masses.\R\b0No hepatosplenomegaly.\R\b0No hernia appreciated.\R\i6Ypregu sphincter tone, no masses. Genitourinary Normal external genitalia and vagina, no lesions appreciated.\R\e2Oajuhx meatus with no discharge.\R\b0The bladder is not distended, no tenderness.\R\a8Drmuja is absent.\R\y8Ooqknr is ab sent.\R\o3Lvpjjs/Parametria are normal, no masses or tenderness. Lymphatic No cervical lymphadenopathy.\R\b0No axillary lymphadenopathy.\R\b0No inguinal lymphadenopathy. Musculoskeletal Normal gait and station.\R\n8Mjppli muscle strength and tone. Skin Skin and subcutaneous tissue are normal without rashes or lesions.\R\u0Quhbiy turgor. Neurologic Reflexes are 2+ and symmetric.\R\c9Jmastt tactile sensation with monofilament testing throughout boot feet. Capillary refill findings were normal bilaterally. Psychiatric Good eye contact and answers questions appropriately.\R\m4Lssnjcvrpjb mood and affect. Signatures Electronically signed by : Cortney Chandra M.D.; Oct 11 2018 7:23AM STATION TENDER documented in this encounter Plan of Treatment Not on file documented as of this encounter Visit Diagnoses Not on filedocumented in this encounter Care Teams Swatcher Relationship Specialty Start Date End Date Unknown, Provider . HIRAM PEGUERO [id number] PCP - General 03/26/18 04/29/19 Cortney Chandra MD [address] [employer] [place] [address] PCP - General Family Medicine 04/30/19 Cortney Chandra MD [address] [employer] [place] [address] PCP Family Medicine 04/29/19 04/29/19 [facility] 03/30/23 Primary Eye Care 03/30/23 documented as of this encounter Additional Source Comments PLEASE NOTE: Replies to this message will not be received.[facility] and [facility]
--- OUTSIDE RECORDS SUMMARY | 2024-06-14 18:52 | XMS_ITS | Encounter Summary ---
Author Organization [employer] Address [address] [place] [address] Care Team Providers Care Panel Machine Setter Name Role Phone Unknown, Provider Primary Care Provider Unavaila Cortney Gomez MD Unavailable [phone] Cortney Chandra MD Primary Care Provider [phone] Encounter Details Date Type Department Care Team (Late st Contact Info) Description 06/14/[address] [facility] Family Medicine [address] [facility] [place] [address] Rosemary Aquino APRN,CHILD CARE CENTRE DIRECTOR [address] [place] [address] Social History Tobacco Use Types Packs/Day Years Used Date Smoking Tobacco: Never Assessed Sex and Gender Information Value Date Recorded Sex Assigned at Not on file Gender Identity Female 01/16/2023 2:23 PM CDT Sexual Orientation Not on file documented as of this encounter Progress Notes * Rosemary Aquino, CHLAINO,CHILD CARE CENTRE DIRECTOR - 06/14/2018 12:00 AM CST Assessment 1. [...] UA - Culture if Indicated; Status:Complete; Done: 29Sjc7129 09:17AM Reason For Visit Patient in with [...] TABLET THREE TIMES DAILY; Therapy: 30Sep2010 to (Evaluate:65Icd4602) Requested for: 07Jul2016; Last Rx:07Jul2016 Ordered 3. Fluticasone Propionate 50 MCG/ACT Nasal Suspension; INSTILL 1 SPRAY DAILY IN EACH NOSTRIL; Therapy: 17Apr2009 to (Evaluate:14Apr2018) Requested for: 16Oct2017; Last Rx:16Oct2017 Ordered 4. Hydrocortisone 2.5 % External Cream; APPLY SPARINGLY TO AFFECTED AREA(S) TWICE DAILY; Therapy: 20Jul2015 to (Evaluate:15Xuk1239) Requested for: 17Jul2017; Last Rx:17Jul2017 Ordered 5. Loratadine 10 MG Oral Tablet; TAKE 1 TABLET BY MOUTH DAILY NEEDED; Therapy: 40Tqf8023 to (Evaluate:12Sep2018) Requested for: 17Sep2017; Last Rx:17Sep2017 Ordered 6. Losartan Potassium 100 MG Oral Tablet; TAKE 1 TABLET BY MOUTH ONCE DAILY; Therapy: 12Luu0352 to (Evaluate:12Jul2018) Requested for: 17Jul2017; Last Rx:17Jul2017 Ordered 7. MetFORMIN HCl ER 500 MG Oral Tablet Extended Release 24 Hour; TAKE 4 TABLETS( 2000MG) BY MOUTH ONCE DAILY; Therapy: 85Efe9791 to (Evaluate:12Jul2018) Requested for: 17Jul2017; Last Rx:17Jul2017 Ordered 8. One-Daily Multi Vitamins Oral Tablet; TAKE 1 TABLET DAILY; Therapy: (Recorded:23Jul2012) to Recorded 9. Simvastatin 20 MG Oral Tablet; TAKE ONE TABLET BY MOUTH DAILY; Therapy: 05Sjx6670 to (Evaluate:12Jul2018) Requested for: 17Jul2017; Last Rx:17Jul2017 Ordered 10. Ventolin HFA 108 (90 Base) MCG/ACT Inhalation Aerosol Solution; INHALE 1 TO 2 PUFFS EVERY 4 TO 6 HOURS NEEDED; Therapy: 06Mar2017 to (Last Rx:06Mar2017) Requested for: 06Mar2017 Ordered 11. Vitamin D3 1000 UNIT Oral Tablet; takes 2 tablets daily; Therapy: (Recorded:44Yuo1757) to Recorded Allergies 1. Ultram TABS Vitals [...] Electronically signed by : Rosemary Aquino, RN CHILD CARE CENTRE DIRECTOR RN,CHILD CARE CENTRE DIRECTOR; Jun 14 2018 12:24PM CONSTRUCTION ELECTRICIAN Electronically signed by : Klever Nicole M.D.; Jul 15 2018 3:46PM CONSTRUCTION ELECTRICIAN documented in this encounter Plan of Treatment Not on file documented as of this encounter Visit Diagnoses Not on filedocumented in this encounter Care Teams Panel Machine Setter Relationship Specialty Start Date End Date Unknown, Provider . HIRAM PEGUERO [address] PCP - General 03/26/18 04/29/19 Cortney Chandra MD [address] [place] [address] PCP - General Family Medicine 04/30/19 Cortney Chandra MD [address] [place] [address] PCP Family Medicine 04/29/19 04/29/19 [facility] 03/30/23 Primary Eye Care 03/30/23 documented as of this encounter Additional Source Comments PLEASE NOTE: Replies to this message will not be received.[facility] and [facility]
--- OUTSIDE RECORDS SUMMARY | 2024-06-14 18:52 | XMS_ITS | Encounter Summary ---
Author Organization [employer] Address [address] [place] [address] Care Team Providers Care Hardwood Floor Installer Name Role Phone Unknown, Provider Primary Care Provider Unavaila ble Cortney Chandra MD Unavailable [phone] Cortney Chandra MD Primary Care Provider [phone] Encounter Details Date Type Department Care Team (Late st Contact Info) Description 08/30/2018 Historical Conversion [facility] Family Medicine [address] [place] [address]. [place] [address] Cortney hCandra MD [address] [place] [address] Social [...] Plan Orders Fatigue Drawing Fee; Status:Complete; Done: 76Dma0812 Reason For Visit Pt. presents today for blood pressure and back. Derick OSORIO History of Present Illness OCTVAIO is a 68 year old female here [...] Aspirin 81 MG TABS; ONE DAILY; Last Rx:77Cre9671 Ordered 2. Cyclobenzaprine HCl - 10 MG Oral Tablet; TAKE 1/2 TO 1 TABLET THREE TIMES DAILY; Therapy: 30Sep2010 to (Evaluate:52Tvt9777) Requested for: 07Jul2016; Last Rx:07Jul2016 Ordered 3. Fluticasone Propionate 50 MCG/ACT Nasal Suspension; INSTILL 1 SPRAY DAILY IN EACH NOSTRIL; Therapy: 17Apr2009 to (Evaluate:14Apr2018) Requested for: 16Oct2017; Last Rx:16Oct2017 Ordered 4. Hydrocortisone 2.5 % External Cream; APPLY SPARINGLY TO AFFECTED AREA(S) TWICE DAILY; Therapy: 20Jul2015 to (Evaluate:13Obc4486) Requested for: 17Jul2017; Last Rx:17Jul2017 Ordered 5. Loratadine 10 MG Oral Tablet; TAKE 1 TABLET BY MOUTH DAILY NEEDED; Therapy: 14Aql8493 to (Evaluate:12Sep2018) Requested for: 17Sep2017; Last Rx:17Sep2017 Ordered 6. Losartan Potassium 100 MG Oral Tablet; TAKE 1 TABLET BY MOUTH ONCE DAILY; Therapy: 82Uds9247 to (Evaluate:10Jul2019) Requested for: 15Jul2018; Last Rx:15Jul2018 Ordered 7. metFORMIN HCl ER 500 MG Oral Tablet Extended Release 24 Hour; TAKE 4 TABLETS( 2000MG) BY MOUTH ONCE DAILY; Therapy: 89Syk2127 to (Evaluate:18Jul2019) Requested for: 23Jul2018; Last Rx:23Jul2018 Ordered 8. One-Daily Multi Vitamins Oral Tablet; TAKE 1 TABLET DAILY; Therapy: (Recorded:23Jul2012) to Recorded 9. Pyridium 100 MG Oral Tablet; TAKE 1 TABLET 3 TIMES DAILY AFTER MEALS NEEDED; Therapy: 62Lrx9764 to (Last Rx:71Wli3312) Requested for: 14Jun2018 Ordered 10. Simvastatin 20 MG Oral Tablet; TAKE ONE TABLET BY MOUTH DAILY; Therapy: 48Pbj7960 to (Evaluate:10Jul2019) Requested for: 15Jul2018; Last Rx:15Jul2018 Ordered 11. Ventolin HFA 108 (90 Base) MCG/ACT Inhalation Aerosol Solution; INHALE 1 TO 2 PUFFS EVERY 4 TO 6 HOURS NEEDED; Therapy: 06Mar2017 to (Last Rx:57Jdh3841) Requested for: 14Ejf1879 Ordered 12. Vitamin D3 1000 UNIT Oral Tablet; takes 2 tablets daily; Therapy: (Recorded:89Tdr6271) to Recorded Allergies 1. Ultram TABS Vitals [...] Cortney Chandra M.D.; Sep 12 2018 4:16PM SUPERVISOR HOT DIP TINNING documented in this encounter Plan of Treatment Not on file documented as of this encounter Visit Diagnoses Not on filedocumented in this encounter Care Teams Hardwood Floor Installer Relationship Specialty Start Date End Date Unknown, Provider . [facility] [address] PCP - General 03/26/18 04/29/19 Cortney Chandra MD [address] [place] [address] PCP - General Family Medicine 04/30/19 Cortney Chandra MD [address] [place] [address] PCP Family Medicine 04/29/19 04/29/19 [facility] 03/30/23 Primary Eye Care 03/30/23 documented as of this encounter Additional Source Comments PLEASE NOTE: Replies to this message will not be received.[facility] and [facility]
--- OUTSIDE RECORDS SUMMARY | 2024-06-14 18:52 | XMS_ITS | Encounter Summary ---
Author Organization [employer] Address [address] [place] [address] Care Team Providers Care Fast Food Delivery Driver Name Role Phone Unknown, Provider Primary Care Provider Unavaila ble Cortney Chandra MD Unavailable [phone] Cortney Chandra MD Primary Care Provider [phone] Encounter Details Date Type Department Care Team (Late st Contact Info) Description 09/01/2014 Historical Conversion [facility] Family Medicine [address] [place] [address]. [place] [address] Cortney Chandra MD [address] [place] [address] Social History Tobacco Use Types Packs/Day Years Used Date Smoking Tobacco: Never Assessed Sex and Gender Information Value Date Recorded Sex Assigned at Not on file Gender Identity Female 01/16/2023 2:23 PM CDT Sexual Orientation Not on file documented as of this encounter Last Filed Vital Signs Vital Sign Reading Time Taken Comments Blood Pressure 130/80 09/01/2014 12:00 AM LAMP TESTER AND INSPECTOR Pulse - - Temperature - - Respiratory Rate - - Oxygen Saturation - - Inhaled Oxygen Concentration - - Weight 85.7 kg (189 lb) 09/01/2014 12:00 AM LAMP TESTER AND INSPECTOR Height 163.8 cm (5' 4.5) 09/01/2014 12:00 AM CS T Body Mass Index 31.94 09/01/2014 12:00 AM LAMP TESTER AND INSPECTOR documented in this encounter Plan of Treatment Not on file documented as of this encounter Visit Diagnoses Not on filedocumented in this encounter Care Teams Fast Food Delivery Driver Relationship Specialty Start Date End Date Unknown, Provider . HIRAM PEGUERO [address] PCP - General 03/26/18 04/29/19 Cortney Chandra MD [address] [place] [address] PCP - General Family Medicine 04/30/19 Cortney Chandra MD [address] [place] [address] PCP Family Medicine 04/29/19 04/29/19 [facility] 03/30/23 Primary Eye Care 03/30/23 documented as of this encounter Additional Source Comments PLEASE NOTE: Replies to this message will not be received.[facility] and [facility]
--- OUTSIDE RECORDS SUMMARY | 2024-06-14 18:52 | XMS_ITS | Encounter Summary ---
Author Organization [employer] Address [address] [place] [address] Care Team Providers Care Resistor Tester Name Role Phone Unknown, Provider Primary Care Provider Unavaila Cortney Gomez MD Unavailable [phone] Cortney Chandra MD Primary Care Provider [phone] Encounter Details Date Type Department Care Team (Late st Contact Info) Description 03/07/[address] [facility] Family Medicine [address] [place] [address] Rosalia Lopez MD Social History Tobacco Use [...] CDT DERMATOLOGY OCTAVIO GALVAN : 1950 HX: [id number] DOS: 03/07/2016 CHIEF COMPLAINT: History of squamous [...] ineffective. Rosalia Lopez M.D./la-7 cc: Cortney Chandra M.D./[facility] [place] Electronically signed by:Rosalia Lopez M.D. Mar 13 2016 8:17AM EVENT PROMOTIONS COORDINATOR documented in this encounter Plan of Treatment Not on file documented as of this encounter Visit Diagnoses Not on filedocumented in this encounter Care Teams Resistor Tester Relationship Specialty Start Date End Date Unknown, Provider . HIRAM PEGUERO [id number] PCP - General 03/26/18 04/29/19 Cortney Chandra MD [address] [place] [address] PCP - General Family Medicine 04/30/19 Cortney Chandra MD [address] [place] [address] PCP Family Medicine 04/29/19 04/29/19 [facility] 03/30/23 Primary Eye Care 03/30/23 documented as of this encounter Additional Source Comments PLEASE NOTE: Replies to this message will not be received.[facility] and [facility]
--- OUTSIDE RECORDS SUMMARY | 2024-06-14 18:52 | XMS_ITS | Continuity of Care Document ---
Author Organization [facility] Address [address] [place] [address] Phone Care Team Providers Care Clinical Education Specialist Name Role Phone Farooq LOZADA, PhD, Joaquim [...] ent Visit,New, Mod [facility] , [address], [place], [place], [id number], tel:[phone] [facility] Radiculopat hy, lumbar region Farooq March. [facility], [address], [place], [address], [place]. tel:[phone] Referring Provider: Joaquim Trivedi, [facility] [address], [place], [address]. tel:[phone] Family History Family Member Type Diagnosis Age At Onset Sister Problem (finding) Diabetes mellitus Payers Payer name Insurance type Covered democrat ID Authoriza radha(s) [employer] Medicare [facility] CI [id number] Social History Type Description Quantity Date [...]
--- OUTSIDE RECORDS SUMMARY | 2024-06-14 18:52 | XMS_ITS | Encounter Summary ---
Author Organization [employer] Address [address] [place] [address] Care Team Providers Care Eap Clinician Name Role Phone Unknown, Provider Primary Care Provider Unavaila ble Cortney Chandra MD Unavailable [phone] Cortney Chandra MD Primary Care Provider [phone] Encounter Details Date Type Department Care Team (Late st Contact Info) Description 08/30/2018 Historical Conversion [facility] Family Medicine [address] [place] [address]. [place] [address] Cortney Chandra MD [address] [place] [address] Social History Tobacco Use Types Packs/Day Years Used Date Smoking Tobacco: Never Assessed Sex and Gender Information Value Date Recorded Sex Assigned at Not on file Gender Identity Female 01/16/2023 2:23 PM CDT Sexual Orientation Not on file documented as of this encounter Last Filed Vital Signs Vital Sign Reading Time Taken Comments Blood Pressure 124/76 08/30/2018 12:00 AM REINSURANCE ACCOUNTANT Pulse - - Temperature - - Respiratory Rate - - Oxygen Saturation - - Inhaled Oxygen Concentration - - Weight 88.5 kg (195 lb 1.7 oz) 08/30/2018 12:00 AM REINSURANCE ACCOUNTANT Height 162.5 cm (5' 3.98) 08/30/2018 12:[address] Body Mass Index 33.52 08/30/2018 12:00 AM REINSURANCE ACCOUNTANT documented in this encounter Plan of Treatment Not on file documented as of this encounter Visit Diagnoses Not on filedocumented in this encounter Care Teams Eap Clinician Relationship Specialty Start Date End Date Unknown, Provider . HIRAM PEGUERO [id number] PCP - General 03/26/18 04/29/19 Cortney Chandra MD [address] [place] [address] PCP - General Family Medicine 04/30/19 Cortney Chandra MD [address] [place] [address] PCP Family Medicine 04/29/19 04/29/19 [facility] 03/30/23 Primary Eye Care 03/30/23 documented as of this encounter Additional Source Comments PLEASE NOTE: Replies to this message will not be received.[facility] and [facility]
--- OUTSIDE RECORDS SUMMARY | 2024-06-14 18:52 | XMS_ITS | Encounter Summary ---
Author Organization [employer] Address [address] [place] [address] Care Team Providers Care Cement Mason Helper Name Role Phone Unknown, Provider Primary Care Provider Unavaila Cortney Gomez MD Unavailable [phone] Cortney Chandra MD Primary Care Provider [phone] Encounter Details Date Type Department Care Team (Late st Contact Info) Description 08/13/2018 Historical Conversion [facility] Family Medicine [address] [facility] [place] [address] Rosemary Aquino APRN,BOTTOM WHEELER [address] [place] [address] Social History Tobacco Use Types Packs/Day Years Used Date Smoking Tobacco: Never Assessed Sex and Gender Information Value Date Recorded Sex Assigned at Not on file Gender Identity Female 01/16/2023 2:23 PM CDT Sexual Orientation Not on file documented as of this encounter Progress Notes * Rosemary Aquino, CHALINO,BOTTOM WHEELER - 08/13/2018 12:00 AM CST Assessment 1. [...] - Requires Verification,Retrospective By Protocol Authorization; Done: [id number] 02:29PM Reason For Visit Patient in with [...] Aspirin 81 MG TABS; ONE DAILY; Last Rx:[id number] Ordered 2. Cyclobenzaprine HCl - 10 MG Oral Tablet; TAKE 1/2 TO 1 TABLET THREE TIMES DAILY; Therapy: 30Sep2010 to (Evaluate:[id number]) Requested for: 07Jul2016; Last Rx:07Jul2016 Ordered 3. Fluticasone Propionate 50 MCG/ACT Nasal Suspension; INSTILL 1 SPRAY DAILY IN EACH NOSTRIL; Therapy: 17Apr2009 to (Evaluate:14Apr2018) Requested for: 16Oct2017; Last Rx:16Oct2017 Ordered 4. Hydrocortisone 2.5 % External Cream; APPLY SPARINGLY TO AFFECTED AREA(S) TWICE DAILY; Therapy: 20Jul2015 to (Evaluate:82Dxb1046) Requested for: 17Jul2017; Last Rx:17Jul2017 Ordered 5. Loratadine 10 MG Oral Tablet; TAKE 1 TABLET BY MOUTH DAILY NEEDED; Therapy: 21Vat7862 to (Evaluate:12Sep2018) Requested for: 17Sep2017; Last Rx:17Sep2017 Ordered 6. Losartan Potassium 100 MG Oral Tablet; TAKE 1 TABLET BY MOUTH ONCE DAILY; Therapy: 60Fsj7654 to (Evaluate:10Jul2019) Requested for: 15Jul2018; Last Rx:15Jul2018 Ordered 7. metFORMIN HCl ER 500 MG Oral Tablet Extended Release 24 Hour; TAKE 4 TABLETS( 2000MG) BY MOUTH ONCE DAILY; Therapy: 64Alt3557 to (Evaluate:18Jul2019) Requested for: 23Jul2018; Last Rx:23Jul2018 Ordered 8. One-Daily Multi Vitamins Oral Tablet; TAKE 1 TABLET DAILY; Therapy: (Recorded:23Jul2012) to Recorded 9. Pyridium 100 MG Oral Tablet; TAKE 1 TABLET 3 TIMES DAILY AFTER MEALS NEEDED; Therapy: 94Nes6137 to (Last Rx:[id number]) Requested for: 14Jun2018 Ordered 10. Simvastatin 20 MG Oral Tablet; TAKE ONE TABLET BY MOUTH DAILY; Therapy: 36Cpr5241 to (Evaluate:10Jul2019) Requested for: 15Jul2018; Last Rx:15Jul2018 Ordered 11. Ventolin HFA 108 (90 Base) MCG/ACT Inhalation Aerosol Solution; INHALE 1 TO 2 PUFFS EVERY 4 TO 6 HOURS NEEDED; Therapy: 06Mar2017 to (Last Rx:[id number]) Requested for: 19Rcu3476 Ordered 12. Vitamin D3 1000 UNIT Oral Tablet; takes 2 tablets daily; Therapy: (Recorded:68Phb8752) to Recorded Allergies 1. Ultram TABS Vitals [...] Urinalysis-Color YEL Urinalysis- Appearance CLOUD A Urinalysis-Sp [place] 1.010 1.005-1.030 Urinalysis-pH 5.5 5.0-7.5 Urinalysis-Protein NEG NEGATIVE Urinalysis- Glucose NEG NEGATIVE Urinalysis-Ketone TRACE A NEGATIVE Urinalysis- Bilirub NEG NEGATIVE Urinalysis- Blood 3+ A NEGATIVE Urinalysis-Urobil 0.2 0.2-1.0 Urinalysis-Nitrite NEG NEGATIVE Urinalysis-Leuk 3+ A NEGATIVE Urinalysis-WBC TNTC A 0-4 Urinalysis-RBC TNTC A 0-4 Urinalysis-Epith FEW Urinalysis-Hyal Cast NEG Urinalysis- Bacteria MOD A UrinalysisA Urinalysis-Color YEL Urinalysis- Appearance CLOUD A Urinalysis-Sp [place] 1.010 1.005-1.030 Urinalysis-pH 5.5 5.0-7.5 Urinalysis-Protein NEG NEGATIVE Urinalysis- Glucose NEG NEGATIVE Urinalysis-Ketone TRACE A NEGATIVE Urinalysis- Bilirub NEG NEGATIVE Urinalysis- Blood 3+ A NEGATIVE Urinalysis-Urobil 0.2 0.2-1.0 Urinalysis-Nitrite NEG NEGATIVE Urinalysis-Leuk 3+ A NEGATIVE Urinalysis-WBC TNTC A 0-4 Urinalysis-RBC TNTC A 0-4 Urinalysis-Epith FEW Urinalysis-Hyal Cast NEG Urinalysis- Bacteria MOD A UrinalysisA Signatures Electronically signed by : Rosemary Aquino RN BOTTOM WHEELER RN,BOTTOM WHEELER; Aug 13 2018 3:19PM SPARE PARTS CLERK documented in this encounter Plan of Treatment Not on file documented as of this encounter Visit Diagnoses Not on filedocumented in this encounter Care Teams Cement Mason Helper Relationship Specialty Start Date End Date Unknown, Provider . HIRAM PEGUERO [id number] PCP - General 03/26/18 04/29/19 Cortney Chandra MD [address] [place] [phone] PCP - General Family Medicine 04/30/19 Cortney Chandra MD [address] [place] [address] PCP Family Medicine 04/29/19 04/29/19 [facility] 03/30/23 Primary Eye Care 03/30/23 documented as of this encounter Additional Source Comments PLEASE NOTE: Replies to this message will not be received.[facility] and [facility]
--- OUTSIDE RECORDS SUMMARY | 2024-06-14 18:52 | XMS_ITS | Encounter Summary ---
Author Organization [employer] Address [address] [place] [address] Care Team Providers Care Centrifugal Spinner Name Role Phone Unknown, Provider Primary Care Provider UnavailCortney Dye MD Unavailable [phone] Cortney Chandra MD Primary Care Provider [phone] Encounter Details Date Type Department Care Team (Late st Contact Info) Description 06/14/2018 Historical Conversion [facility] Family Medicine [address] [place] [address] Rosemary Aquino, SHIPMASTER,SURGICAL SCRUB TECHNICIAN [address] [place] [address] Social History Tobacco Use Types Packs/Day Years Used Date Smoking Tobacco: Never Assessed Sex and Gender Information Value Date Recorded Sex Assigned at Not on file Gender Identity Female 01/16/2023 2:23 PM CDT Sexual Orientation Not on file documented as of this encounter Last Filed Vital Signs Vital Sign Reading Time Taken Comments Blood Pressure 144/88 06/14/2018 12:00 AM SEMICONDUCTOR DEVELOPMENT TECHNICIAN Pulse - - Temperature - - Respiratory Rate - - Oxygen Saturation - - Inhaled Oxygen Concentration - - Weight 87 kg (191 lb 12.8 oz) 06/14/2018 12:00 A M SEMICONDUCTOR DEVELOPMENT TECHNICIAN Height - - Body Mass Index 32.75 09/25/2017 12:00 AM CDT documented in this encounter Plan of Treatment Not on file documented as of this encounter Visit Diagnoses Not on filedocumented in this encounter Care Teams Centrifugal Spinner Relationship Specialty Start Date End Date Unknown, Provider . HIRAM PEGUERO [address] PCP - General 03/26/18 04/29/19 Cortney Chandra MD [address] [place] [email or web address] [place] [address] PCP - General Family Medicine 04/30/19 Cortney Chandra MD [address] [place] [address] PCP Family Medicine 04/29/19 04/29/19 [facility] 03/30/23 Primary Eye Care 03/30/23 documented as of this encounter Additional Source Comments PLEASE NOTE: Replies to this message will not be received.[facility] and [facility]
--- OUTSIDE RECORDS SUMMARY | 2024-06-14 18:52 | XMS_ITS | Encounter Summary ---
Author Organization [employer] Address [address] [place] [address] Care Team Providers Care Electronics Manufacturer Name Role Phone Unknown, Provider Primary Care Provider Unavaila ble Cortney Chandra MD Unavailable [phone] Cortney Chandra MD Primary Care Provider [phone] Encounter Details Date Type Department Care Team (Late st Contact Info) Description 09/25/2017 Historical Conversion [facility] Family Medicine [address] [place] [address]. [place] [address] Cortney Chandra MD [address] [place] [address] Social History Tobacco Use Types [...] For Visit Pt. presents today for MRCPX. [place] History of Present Illness Sumaya is here for annual HCM exam along with Medicare wellness. She has a hx of type 2 DM, hyperlipidemia and HTN. She is doing well. She notes some join and back discomfort off and on but does notwant to do anything about it. 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 Her asthma and [...] Aspirin 81 MG TABS; ONE DAILY; Last Rx:[id number] Ordered 2. Cheratussin AC 100-10 MG/5ML Oral Syrup; TAKE 10 ML EVERY 4 TO 6 HOURS NEEDED; Therapy: 05Oct2012 to (Evaluate:91Ukw4686); Last Rx:[id number] Ordered 3. Cyclobenzaprine HCl - 10 MG Oral Tablet; TAKE 1/2 TO 1 TABLET THREE TIMES DAILY; Therapy: 30Sep2010 to (Evaluate:64Xbq5152) Requested for: 07Jul2016; Last Rx:07Jul2016 Ordered 4. Fluticasone Propionate 50 MCG/ACT Nasal Suspension; INSTILL 1 SPRAY DAILY IN EACH NOSTRIL; Therapy: 17Apr2009 to (Evaluate:15Dec2016) Requested for: 23Pwl6337; Last Rx:[id number] Ordered 5. Hydrocortisone 2.5 % External Cream; APPLY SPARINGLY TO AFFECTED AREA(S) TWICE DAILY; Therapy: 20Jul2015 to (Evaluate:67Ybt9381) Requested for: 17Jul2017; Last Rx:17Jul2017 Ordered 6. Loratadine 10 MG Oral Tablet; TAKE 1 TABLET BY MOUTH DAILY NEEDED; Therapy: 16Hjk6963 to (Evaluate:12Sep2018) Requested for: 17Sep2017; Last Rx:17Sep2017 Ordered 7. Losartan Potassium 100 MG Oral Tablet; TAKE 1 TABLET BY MOUTH ONCE DAILY; Therapy: 44Uwl3073 to (Evaluate:12Jul2018) Requested for: 17Jul2017; Last Rx:17Jul2017 Ordered 8. MetFORMIN HCl ER 500 MG Oral Tablet Extended Release 24 Hour; TAKE 4 TABLETS( 2000MG) BY MOUTH ONCE DAILY; Therapy: 32Exa3246 to (Evaluate:12Jul2018) Requested for: 17Jul2017; Last Rx:17Jul2017 Ordered 9. One-Daily Multi Vitamins Oral Tablet; TAKE 1 TABLET DAILY; Therapy: (Recorded:23Jul2012) to Recorded 10. Simvastatin 20 MG Oral Tablet; TAKE ONE TABLET BY MOUTH DAILY; Therapy: 02Eyk9271 to (Evaluate:12Jul2018) Requested for: 17Jul2017; Last Rx:17Jul2017 Ordered 11. Ventolin HFA 108 (90 Base) MCG/ACT Inhalation Aerosol Solution; INHALE 1 TO 2 PUFFS EVERY 4 TO 6 HOURS NEEDED; Therapy: 83Xqw9215 to (Last Rx:[id number]) Requested for: 06Aqe2122 Ordered 12. Vitamin D3 1000 UNIT Oral Tablet; takes 2 tablets daily; Therapy: (Recorded:[id number]) to Recorded Allergies 1. Ultram TABS Vitals [...] Cortney Chandra M.D.; Oct 05 2017 8:00AM AUTO INSPECTOR documented in this encounter Plan of Treatment Not on file documented as of this encounter Visit Diagnoses Not on filedocumented in this encounter Care Teams Electronics Manufacturer Relationship Specialty Start Date End Date Unknown, Provider . HIRAM PEGUERO [address] PCP - General 03/26/18 04/29/19 Cortney Chandra MD [address] [place] [address] PCP - General Family Medicine 04/30/19 Cortney Chandra MD [address] [place] [address] PCP Family Medicine 04/29/19 04/29/19 [facility] 03/30/23 Primary Eye Care 03/30/23 documented as of this encounter Additional Source Comments PLEASE NOTE: Replies to this message will not be received.[facility]
--- OUTSIDE RECORDS SUMMARY | 2024-06-14 18:52 | XMS_ITS | Encounter Summary ---
Author Organization [facility] Address [address] [place] [address] Care Team Providers Care Night Supervisor Name Role Phone Unknown, Provider Primary Care Provider Unavaila ble Cortney Chandra MD Unavailable [phone] Cortney Chandra MD Primary Care Provider [phone] Encounter Details Date Type Department Care Team (Late st Contact Info) Description 08/19/2016 Historical Conversion [facility] Family Medicine [address] [place] [address] [place] [address] Cortney Chandra MD [address] [place] [address] Social History Tobacco Use Types Packs/Day Years Used Date Smoking Tobacco: Never Assessed Sex and Gender Information Value Date Recorded Sex Assigned at Not on file Gender Identity Female 01/16/2023 2:23 PM CDT Sexual Orientation Not on file documented as of this encounter Last Filed Vital Signs Vital Sign Reading Time Taken Comments Blood Pressure 132/78 08/19/2016 12:00 AM GIVING OFFICER Pulse - - Temperature - - Respiratory Rate - - Oxygen Saturation - - Inhaled Oxygen Concentration - - Weight 86.2 kg (190 lb 0.6 oz) 08/19/2016 12:00 AM GIVING OFFICER Height 163 cm (5' 4.17) 08/19/2016 12:00 AM GIVING OFFICER Body Mass Index 32.44 08/19/2016 12:00 AM GIVING OFFICER documented in this encounter Progress Notes * [...] back pain, mostly on left side. 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 Cyclobenzaprine HCl - 10 MG Oral Tablet; TAKE 1/2 TO 1 TABLET THREE TIMES DAILY; Therapy: 30Sep2010 to (Evaluate:80Ycd9433) Requested for: 07Jul2016; Last Rx:07Jul2016 Ordered 4. Fluticasone Propionate 50 MCG/ACT Nasal Suspension; INSTILL 1 SPRAY DAILY IN EACH NOSTRIL; Therapy: 17Apr2009 to (Evaluate:15Dec2016) Requested for: 65Tet0478; Last Rx:61Vin0226 Ordered 5. Hydrocortisone 2.5 % External Cream; APPLY SPARINGLY TO AFFECTED AREA(S) TWICE DAILY; Therapy: 20Jul2015 to (Evaluate:28Jul2016) Requested for: 35Djn7596; Last Rx:87Xcz7771 Ordered 6. Loratadine 10 MG Oral Tablet; TAKE 1 TABLET BY MOUTH DAILY NEEDED; Therapy: 09Sji7266 to (Evaluate:12Sep2017) Requested for: 17Sep2016; Last Rx:17Sep2016 Ordered 7. Losartan Potassium 100 MG Oral Tablet; TAKE 1 TABLET BY MOUTH ONCE DAILY; Therapy: 55Vil5082 to (Evaluate:18Jul2017) Requested for: 23Jul2016; Last Rx:23Jul2016 Ordered 8. MetFORMIN HCl ER 500 MG Oral Tablet Extended Release 24 Hour; TAKE 4 TABLETS( 2000MG) BY MOUTH ONCE DAILY; Therapy: 82Onz4626 to (Evaluate:25Jul2017) Requested for: 30Jul2016; Last Rx:30Jul2016 Ordered 9. One-Daily Multi Vitamins Oral Tablet; TAKE 1 TABLET DAILY; Therapy: (Recorded:23Jul2012) to Recorded 10. Simvastatin 20 MG Oral Tablet; TAKE ONE TABLET BY MOUTH DAILY; Therapy: 13Oqa8539 to (Evaluate:18Jul2017) Requested for: 23Jul2016; Last Rx:23Jul2016 Ordered 11. Vitamin D3 1000 UNIT Oral Tablet; takes 2 tablets daily; Therapy: (Recorded:63Sst0541) to Recorded Allergies 1. Ultram TABS Vitals [...] Cortney Chandra M.D.; Dec 18 2016 8:57PM GIVING OFFICER documented in this encounter H&P Notes * [...] Metabolic Panel; Status:Resulted - Requires Verification; Done: 61Jyn7018 10:48AM Controlled diabetes mellitus Hemoglobin A1C; Status:Resulted - Requires Verification; Done: 50Kqt2111 10:48AM Lipid Panel; Status:Resulted - Requires Verification; Done: 67Utq1180 10:48AM Microalbumin (Random); Status:Resulted - Requires Verification; Done: 33Bxm5315 10:48AM Fatigue, Screening for thyroid disorder TSH; Status:Resulted - Requires Verification; Done: 98Ztd2590 10:48AM Health Maintenance Prevnar 13 Intramuscular Suspension Visit for screening mammogram Mammo Screen Bilat - 2109; Status:Resulted - Requires Verification; Done: 82Cmq5152 11:12AM Vitamin D deficiency Drawing Fee; Status:Complete; Done: 61Mym1382 Vitamin D Total [facility]; Status:Resulted - Requires Verification; Done: 85Zot9085 10:48AM Reason For Visit Pt. presents today for medicare px. Derick MATTHEWN History of Present Illness Octavio is here for annual Medicare wellness exam. She also is due for her labs for diabetes. She is felling well but does c/o pain in her left upper arm since an injury at [facility]. She slipped on the ice getting out [...] Aspirin 81 MG TABS; ONE DAILY; Last Rx:82Kpa6621 Ordered 2. Cheratussin AC 100-10 MG/5ML Oral Syrup; TAKE 10 ML EVERY 4 TO 6 HOURS NEEDED; Therapy: 05Oct2012 to (Evaluate:29Dgo9572); Last Rx:47Yws1247 Ordered 3. Cyclobenzaprine HCl - 10 MG Oral Tablet; TAKE 1/2 TO 1 TABLET THREE TIMES DAILY; Therapy: 30Sep2010 to (Evaluate:99Emb1623) Requested for: 07Jul2016; Last Rx:07Jul2016 Ordered 4. Fluticasone Propionate 50 MCG/ACT Nasal Suspension; INSTILL 1 SPRAY DAILY IN EACH NOSTRIL; Therapy: 17Apr2009 to (Evaluate:15Dec2016) Requested for: 58Rgv6376; Last Rx:72Uto7499 Ordered 5. Hydrocortisone 2.5 % External Cream; APPLY SPARINGLY TO AFFECTED AREA(S) TWICE DAILY; Therapy: 20Jul2015 to (Evaluate:28Jul2016) Requested for: 34Isl9799; Last Rx:90Pgs4567 Ordered 6. Loratadine 10 MG Oral Tablet; TAKE 1 TABLET BY MOUTH DAILY NEEDED; Therapy: 50Pva0616 to (Evaluate:17Drh5546) Requested for: 97Pks4537; Last Rx:46Kta6480 Ordered 7. Losartan Potassium 100 MG Oral Tablet; TAKE 1 TABLET BY MOUTH ONCE DAILY; Therapy: 37Uaf9146 to (Evaluate:18Jul2017) Requested for: 23Jul2016; Last Rx:23Jul2016 Ordered 8. MetFORMIN HCl ER 500 MG Oral Tablet Extended Release 24 Hour; TAKE 4 TABLETS( 2000MG) BY MOUTH ONCE DAILY; Therapy: 71Drl1211 to (Evaluate:25Jul2017) Requested for: 30Jul2016; Last Rx:30Jul2016 Ordered 9. One-Daily Multi Vitamins Oral Tablet; TAKE 1 TABLET DAILY; Therapy: (Recorded:23Jul2012) to Recorded 10. Simvastatin 20 MG Oral Tablet; TAKE ONE TABLET BY MOUTH DAILY; Therapy: 04Qpm8800 to (Evaluate:18Jul2017) Requested for: 23Jul2016; Last Rx:23Jul2016 [...] affect. Results/Data Mammo Screen Bilat - 2109 80Blg7435 11:12AM Cortney Chandra Test Name Result Flag [...] Author: MAME ISRAEL M.D. Basic Metabolic Panel 87Iim7657 10:48AM Cortney Chandra Test Name Result Flag [...] Dioxide 21 mmol/L L 22-30 Hemoglobin A1C 63Ycg1734 10:48AM Cortney Chandra Test Name Result Flag Reference Hemoglobin A1C 7.5 % H <5.7 Prediabetes 5.7% - 6.4% Diabetes >=6.5% Please note reference change as of 2015.. Estimated Average Glucose 169 mg/dl The eAG (estimated Average Glucose) is recommended by the [place] [employer] to assist with patient education during glucose monitoring. Lipid Panel 72Yob6784 10:48AM Cortney Chandra Test Name Result Flag Reference Cholesterol 166 mg/dl < 200 Triglycerides 144 mg/dl < 150 HDL 56 mg/dl 40 or > LDL - Calculated 81 mg/dl < 130 *L/H Ratio 1.5 1.0-4.7 TSH 78Jcx2938 10:48AM Cortney Chandra Test Name Result Flag Reference TSH 0.804 uIU/ml 0.30-4.70 Vitamin D Total [facility] 14Ggf7681 10:48AM Cortney Chandra Test Name Result Flag Reference Vitamin D Total - [facility] 43.1 ng/ml 30-100 Deficiency <10ng/mL Insufficiency 10-29 ng/mL Sufficiency 30-100 ng/mL Possible Toxicity >100 ng/mL Microalbumin (Random) 74Aom4091 10:48AM Cortney Chandra Test Name Result Flag Reference Microalbumin, Raw 6.9 mg/L < 20 Microalbumin/Creat Ratio 4.4 ug/mg < 30 ug Microalb/mg UA Creat Creat, Urine 155.4 mg/dl Signatures Electronically signed by : Cortney Chandra M.D.; Aug 26 2016 8:22AM GIVING OFFICER documented in this encounter Plan of Treatment Not on file documented as of this encounter Visit Diagnoses Not on filedocumented in this encounter Care Teams Night Supervisor Relationship Specialty Start Date End Date Unknown, Provider . HIRAM PEGUERO [id number] PCP - General 03/26/18 04/29/19 Cortney Chandra MD [address] [place] [address] PCP - General Family Medicine 04/30/19 Cortney Chandra MD [address] [place] [address] [place] [phone] PCP Family Medicine 04/29/19 04/29/19 [facility] 03/30/23 Primary Eye Care 03/30/23 documented as of this encounter Additional Source Comments PLEASE NOTE: Replies to this message will not be received.[facility]
== END 2024-06-10 13:21 | disposition home or self-care (01) ==
LOC: NFLDREF 06-14 18:48
PROVIDERS: PCP Internal Medicine; Referring Provider Internal Medicine; Visit Provider Internal Medicine
DX: D64.9 Anemia, unspecified (principal)
CPT/HCPCS: 82607; 82728

== ENCOUNTER 2024-06-16 13:12 | Inpatient (IN) | payer MEDICARE, SELFPAY ==
[2024-06-15] VITALS (24 sets, daily range): BP systolic 85–139; BP diastolic 47–74; PULSE 62–103; RESP 14–18; TEMP 36.4–37.4; O2SAT 91–96; BMI 25.6
[2024-06-15] MEDS: ACETAMINOPHEN 500 MG TABLET 1000 MG PO ×3 (09:10→23:43)
[2024-06-15] MEDS: OXYCODONE (CR) 10 MG TAB.ER.12H PO (09:10)
--- NOTE | 2024-06-15 09:16 | W.PM.H&PU ---
History & Physical Update History & Physical Update H&P Reviewed and patient assessed: No changes noted
--- NOTE | 2024-06-15 09:18 | CRLHL7_ITS ---
For Patients: As a result of the Century Cures Act, medical imaging exams and procedure reports are released immediately into your electronic medical record. You may view this report before your referring provider. If you have questions, please contact your health care provider. INDICATION: Follow-up shoulder replacement. TECHNIQUE: Two portable postoperative images of left shoulder. COMPARISON: Pre-surgical images March 05, 2024. FINDINGS: There is a new left shoulder arthroplasty. The components are adequately aligned and well seated. Degenerative change left AC joint. IMPRESSION: New left shoulder arthroplasty. The components are adequately aligned and well seated. Dictated by Dandy Delatorre MD @ 06/15/2024 3:44:38 PM (Electronically Signed)
[2024-06-15] MEDS: SODIUM CHLORIDE 0.9 % (FLUSH) 10 ML SYRINGE IVF (09:31)
[2024-06-15] MEDS: MIDAZOLAM HCL 1 MG/ML inj IVP (10:20)
[2024-06-15] MEDS: LACTATED RINGERS 1000 ML 1,000 ML 100 ML IV (10:20)
[2024-06-15] MEDS: fentaNYL 100 MCG/2 ML inj IVP (10:20)
--- NOTE | 2024-06-15 10:27 | SUR.PREOP ---
TIME?OUT:?1020 PT/Lesa LOTT RN/Manohar SIMMONS MDA?VERIFICATION?OF?SURGICAL?SITE,?PROCEDURE,?AND?CONSENT OBTAINED?PRIOR?TO?INVASIVE?PROCEDURE.
[2024-06-15] MEDS: CEFAZOLIN 2 GM in 0.9 % SODIUM CHLORIDE Mini-bag 100 ML IVPB (10:40)
[2024-06-15] MEDS: TRANEXAMIC ACID 100 MG/ML INJ 1000 MG IV (10:50)
--- NOTE | 2024-06-15 11:02 | P.NB_ITS ---
Nerve Block Nerve Block Time Seen by Provider: 10:21 Date Seen: 06/15/24 Type of block requested by surgeon for post-operative analgesia: supraclavicular Side: left Time out performed: Yes Verification of patient name: Yes Verification of date of : Yes Site marking: site marked Name of person performing procedure: Angel Continuous monitoring Was continuous monitoring of O2 sat, B/P, electronic device monitor, recorded every 15 minutes?: Yes Procedure Checklist: sterile prep, needles and gloves Ultrasound guided. Images saved: Yes Medications given in 5ml increments after negative aspiration: Ropivicaine %: 0.5 mL: 15 Needle gauge: 22 Precedex (mcg): 25 Patient tolerated procedure well: Yes Block Charges Block Charge (with Pro Fee): Brachial Plexus Use of Ultrasound Machine for Block: Yes- US Guidance/pain block
--- NOTE | 2024-06-15 11:03 | W.ANESCHARGE ---
Anesthesia Charges Start Date/Time Anesthesia Start Date: 06/15/24 Anesthesia Start Time: 10:25 Stop Date/Time Anesthesia Stop Date: 06/15/24 Anesthesia Stop Time: 13:09 Summary Extremes of Age - Over 70 or under 1: MDA
--- NOTE | 2024-06-15 12:32 | P.ORPRC_ITS ---
Procedure Note Date of procedure: 06/15/24 Procedure: PREOPERATIVE DIAGNOSIS: 1. Left shoulder cuff tear arthropathy/irrepairable rotator cuff tear POSTOPERATIVE DIAGNOSIS: 1. Left shoulder cuff tear arthropathy/irrepairable rotator cuff tear PROCEDURE: 1. Left reverse shoulder arthroplasty. SURGEON: Azael Flowers MD. LEAD SOLUTIONS ARCHITECT: Sacha Herrera PA-C - Of note, a skilled preschool assistant director was critical for this case to aid in patient positioning, tissue retraction, limb manipulation/p ositioning, retraction for glenoid exposure, which was challenging, awareness and protection of critical structures, and closure. ANESTHESIA: General plus supraclavicular block EBL: 200 ml IMPLANTS: DJ0 surgical Altivate humeral stem size 12 small shell, short with P2 porous coating vitamin E semi constrained poly small socket insert RSP glenoid base plate P2 porous coating with 3 perimeter locking screws 32 neutral glenosphere with retaining screw COMPLICATIONS: None evident INDICATIONS: The patient is a pleasant 74-year-old female who has experienced severe left shoulder pain and difficulty with use. Workup included imaging which revealed some osteoarthritis with massive rotator cuff tear with significant atrophy. Physical exam was consistent with associated pain. Given the deformity, the dysfunction, and the pain, and failure of nonoperative management, recommendation was made for surgery. DESCRIPTION OF PROCEDURE: Following a thorough discussion of risks, benefits, and alternatives, consent was obtained and the left shoulder was marked. The patient was brought to the operating room and placed supine on the operating table. Induction of anesthesia was undertaken. 1 g IV Ancef and 1 g tranexamic acid was administered within 1 hr of incision preoperatively. Appropriate time-out was performed identifying proper patient, site, and procedure. The operative extremity was prepped and draped in the appropriate sterile fashion using ChloraPrep after the patient was positioned in the [facility] beach chair position with head in neutral alignment and all bony prominences well padded. A longitudinal incision was made for deltopectoral approach. Deltoid was retracted laterally. Cephalic vein was identified and retracted laterally as well. Vein was spared/protected throughout the case. The clavipectoral fascia was identified and divided longitudinally staying lateral to the conjoined tendon / coracoid. The conjoined tendon was protected with a blunt Hohmann. The long head of the biceps was not visualized. The bicipital groove was visualized but no biceps present. The upper 1 cm of the pectoralis major was also released from its insertion. The rotator cuff was inspected and found to have good integrity with the subscapularis but fair integrity with a supraspinatus], and a decision for a reverse shoulder arthroplasty was confirmed. A subscapularis cuff of tissue was left via tenotomy for later repair with the remaining subscapularis released in a subperiosteal fashion with the Bovie. Of note, this was mostly thickened bursal tissue. There was not quality subscap muscle/tendon. This was tagged for later repair. The 3 sisters were cauterized. The upper subscapularis was released from the capsule with a curved Zepeda scissors towards the glenoid. The inferior subscapularis was divided from the capsular tissue on its caudal surface with particular caution for the axillary nerve. This was palpated anterior to the subscapularis both prior to and near the finish of the case. Inferior humeral head osteophytes were excised with caution taken throughout the case with regards to the axillary nerve. The humerus was dislocated, and humeral head cut completed. Then a protector plate was applied. We turned our attention to the glenoid. The humerus was retracted posteriorly. The subscap was protected anteriorly and the labrum/long head biceps origin was excised circumferentially. The capsule was released along the anterior and inferior portions of the glenoid cautiously with a Lee elevator being careful not to penetrate deep. The glenoid had appropriate exposure, and was prepared with the cannulated system with a target of approximately 5-10? of inferior tilt and neutral anteversion (patient had 0? of retroversion initially). Utilizing the match Point 3D printed guide, the guide pin was placed. The 3D printed jig removed and after placing the guide pin, the tap was placed followed by the glenoid reaming. The real base plate was opened, and inserted, and excellent compression/purchase was achieved with the central screw. Peripheral screws were then drilled, measured, and placed. The glenosphere was then placed consistent with the preoperative plan utilizing the above noted glenosphere. After securing the glenosphere with the locking, torque limited screw, attention was turned back to the humerus. A canal finder was placed followed by various reamers by hand. The real humeral stem was then opened and inserted with excellent metaphyseal fit and stability. Trial poly was placed and the shoulder reduced. Excellent reduction and stability achieved with appropriate tension on the conjoined tendon. At this stage, trial implants were removed, and the real implants inserted and the shoulder reduced. A 3 minute Betadine soak was performed followed by a thorough irrigation with normal saline. Subscapularis was repaired with #Suturetape to the cuff of tissue on the lesser tuberosity. Excellent reapproximation of tissue achieved. Hemostasis was found to be appropriate. The deltopectoral interval was reapproximated with 0 Vicryl, subcutaneous and subcuticular closure was then performed with number 2-0 Vicryl and 4-0 Monocryl, respectively. A skilled preschool assistant director was critical for this case to aid in patient positioning, tissue retraction, limb manipulation/positioning, retraction for glenoid exposure, which was challenging, awareness and protection of critical structures, and closure. PLAN: 1. Sling at all times for the operative upper extremity. 2. AROM of elbow, forearm, wrist, and digits as tolerated. 3. PT/OT consults for education and assistance. 4. Social consult for discharge planning. 5. 23 hr perioperative antibiotics. 6. Early ambulation, and SCDs for DVT prophylaxis. 7. Admit to the hospital for the above 8. Analgesics p.r.n.
--- NOTE | 2024-06-15 13:07 | W.ANESCHARGE ---
Anesthesia Charges Start Date/Time Anesthesia Start Date: 06/15/24 Anesthesia Start Time: 10:25 Stop Date/Time Anesthesia Stop Date: 06/15/24 Anesthesia Stop Time: 13:09 Summary Extremes of Age - Over 70 or under 1: SITE COORDINATOR
[2024-06-15] MEDS: LACTATED RINGERS 1000 ML 1,000 ML 75 ML IV (14:11)
[2024-06-15] MEDS: CEFAZOLIN 1 GM in 0.9 % SODIUM CHLORIDE Mini-bag 100 ML IVPB (17:00)
[2024-06-15] MEDS: CARBIDOPA-LEVODOPA 25-100 TABLET 1 TAB PO (18:48)
--- NOTE | 2024-06-15 19:17 | PM.IMCN1 ---
Date of Consult Consult date: 06/15/24 Primary Care Provider: Mary Espinoza MD Consult Narrative Narrative: HOSPITALIST CONSULT Procedure: Left reverse shoulder arthroplasty. SURGEON: Azael Flowers MD. ANESTHESIA: General plus supraclavicular block EBL: 200 ml The hospital medicine team was asked by the orthopedic surgery team to manage the patient's parkinson's, mild cognitive decline, depression, lumbar disc disease. There have been no perioperative complications. I have updated and reviewed the active medical problems, past medical history, past surgical history, social history, allergies and medications in our electronic EMR. This includes a cross reference to care everywhere in [facility] and with [facility] databases. PHYSICAL EXAM: CODE STATUS: FULL CODE CONSTITUTIONAL: pt confused tonight. She thought her surgery was tomorrow. c/o of nausea VITAL SIGNS: see record. HEENT: Normocephalic, atraumatic. PERRL, EOMI, conjunctivae pink, no scleral icterus. Ears and nose externally normal. Pharynx normal. NECK: No JVD. No carotid bruit, no thyromegaly, no adenopathy. CHEST: Clear to auscultation bilaterally HEART: S1 and S2 normal. ABDOMEN: Flat, soft, nontender. Normal bowel sounds. Moderately obese. EXTREMITIES: No edema. MUSCULOSKELETAL: SDI; icing. good hand squeeze. NEURO: Cranial nerves intact. Mentation normal. Normal affect. SKIN: No rashes, petechiae, concerning changes PSYCHIATRIC: Mentation normal. INVESTIGATIONS: EMR Reviewed; Pre-OP Reviewed DISPOSITION: DVT: N/A GI: PO intake [facility] Medical History (Updated 06/15/24 @ 22:30 by Tessie Griffith MD) Degenerative disc disease, lumbar ?M51.36 - Other intervertebral disc degeneration, lumbar region (ICD-10) Rotator cuff tear, left (03/05/24) ?M75.102 - Unspecified rotator cuff tear or rupture of left shoulder, not specified as traumatic (ICD-10) 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 ?M48.26 - Kissing spine, lumbar region (ICD-10) AMS (altered mental status) (03/05/24) ?R41.82 - Altered mental status, unspecified (ICD-10) Recurrent UTI ?N39.0 - Urinary tract infection, site not specified (ICD-10) Depression ?F32.A - Depression, unspecified (ICD-10) Osteoporosis ?M81.0 - Age-related osteoporosis without current pathological fracture (ICD-10) Chronic bilateral low back pain with sciatica ?M54.40 - Lumbago with sciatica, unspecified side (ICD-10) ?G89.29 - Other chronic pain (ICD-10) Rectocele ?N81.6 - Rectocele (ICD-10) Monocytosis ?D72.821 - Monocytosis (symptomatic) (ICD-10) Biceps tendinitis of left shoulder ?M75.22 - Bicipital tendinitis, left shoulder (ICD-10) Arthritis of left acromioclavicular joint ?M19.012 - Primary osteoarthritis, left shoulder (ICD-10) History of vitamin D deficiency ?Z86.39 - Personal history of other endocrine, nutritional and metabolic disease (ICD-10) Surgical History (Updated 06/15/24 @ 22:31 by Tessie Griffith MD) Status post reverse arthroplasty of left shoulder ?Z96.612 - Presence of left artificial shoulder joint (ICD-10) History of left breast biopsy (1980) ?Z98.890 - Other specified postprocedural states (ICD-10) History of hysterectomy (05/09/94) ?Z90.710 - Acquired absence of both cervix and uterus (ICD-10) Family History (Updated 03/23/24 @ 13:29 by Nicole Swain) Sister Diabetes Heart disease Father High blood pressure Maternal Grandfather Colon cancer Social History (Reviewed 05/10/24 @ 10:52 by Enid Rdz ~ [facility], [facility]) Narrative: 11/26. lives alone in [place], [place]. nonsmoker, no alcohol. What is your current living situation?: I presently have a place to live Problems where you live: no known problems and declined to answer Problems where you live details: na In the past 12 months, utilities in danger of being shut off: no In the past 12 mos, have been you worried that your food would run out before you had money to buy more?: never true In the past 12 mos, the food you bought just didn't last and you didn't have money to buy more?: never true Highest level of school completed/degree received: Associate degree: occupational, technical, vocational program Smoking Status: Never smoker Second hand tobacco smoke exposure: No How often do you have a drink containing alcohol: never AUDIT-C Alcohol total score: 0 Non-prescribed substance use: denies use Caffeine: Yes How often does anyone, including family, friends and others, physically hurt you: never How often does anyone, including family, friends and others, insult or talk down to you: never How often does anyone, including family, friends and others, threaten you with harm: never How often does anyone, including family, friends and others, scream or curse at you: never service: No Meds Home Medications and Allergies Home Medications ?Medication ?Instructions ?Recorded ?Confirmed ?Type alendronate 70 mg tablet 70 mg PO MO 03/10/24 06/15/24 History escitalopram oxalate 20 mg tablet 20 mg PO DAILY 03/10/24 06/15/24 History metformin 500 mg tablet,extended 2,000 mg PO HS 03/10/24 06/15/24 History release 24 hr simvastatin 20 mg tablet 20 mg PO HS 03/10/24 06/15/24 History carbidopa 25 mg-levodopa 100 mg 1 tab PO TID 05/31/24 06/15/24 History tablet iron,carbonyl 65 mg-vitamin C 125 1 tab PO DAILY 05/31/24 06/15/24 History mg tablet,delayed release (Vitron-C) Allergies Allergy/AdvReac Type Severity Reaction Status Date / Time tramadol (From Ultram) Allergy Unknown Unknown Verified 06/15/24 09:37 Exam Const: Vital Signs, click to edit/add: Vital Signs - 24 hr 06/15/24 09:27 06/15/24 10:20 06/15/24 13:05 Temperature 97.8 F 97.6 F Pulse Rate 90 78 75 Respiratory Rate 18 18 14 Blood Pressure 128/63 102/54 L 109/57 L Pulse Oximetry 91 93 96 Oxygen Delivery Me thod Room Air Nasal Cannula Nasal Cannula Oxygen Flow Rate 3 2 06/15/24 13:10 06/15/24 13:15 06/15/24 13:20 Temperature Pulse Rate 71 72 73 Respiratory Rate 14 14 14 Blood Pressure 107/48 L 111/52 L 109/53 L Pulse Oximetry 95 95 94 Oxygen Delivery Me thod Nasal Cannula Nasal Cannula Nasal Cannula Oxygen Flow Rate 2 2 2 06/15/24 13:25 06/15/24 13:30 06/15/24 13:35 Temperature 98 F Pulse Rate 74 75 76 Respiratory Rate 14 14 14 Blood Pressure 103/51 L 111/55 L 116/59 L Pulse Oximetry 95 94 94 Oxygen Delivery Me thod Nasal Cannula Nasal Cannula Nasal Cannula Oxygen Flow Rate 2 2 2 06/15/24 13:47 06/15/24 14:30 06/15/24 14:45 Temperature 97.5 F L 98 F 98 F Pulse Rate 89 72 Respiratory Rate 16 16 14 Blood Pressure 139/74 110/63 Pulse Oximetry 92 93 94 Oxygen Delivery Me thod Room Air Room Air Nasal Cannula Oxygen Flow Rate 2 06/15/24 15:00 06/15/24 15:15 06/15/24 15:30 Temperature 98 F 98 F Pulse Rate 70 70 Respiratory Rate 14 14 Blood Pressure 102/54 L 95/51 L Pulse Oximetry 94 93 93 Oxygen Delivery Me thod Room Air Room Air Room Air Oxygen Flow Rate 06/15/24 16:00 06/15/24 17:00 Temperature 98 F 98 F Pulse Rate 62 82 Respiratory Rate 16 16 Blood Pressure 85/47 L 110/56 L Pulse Oximetry 93 96 Oxygen Delivery Me thod Room Air Room Air Oxygen Flow Rate Assessment and Plan Assessment and plan (1) Status post reverse arthroplasty of left shoulder: Problem comment: -we will be happy to follow the patient through to discharge. Pain control is excellent. She does seem a little confused which could be her underlying cognitive decline and anesthesia. We're controlling her nausea postoperatively. Status: Acute (2) Parkinson's disease: Problem comment: saw [facility] 05/29 (Sinemet trial started then). Continuing Sinemet postoperatively. Status: Acute (3) Type 2 diabetes mellitus: Problem comment: Bedside glucose monitoring. Status: Acute (4) Hypertension: Problem comment: Holding home meds appropriately postoperatively Status: Acute (5) Normocytic anemia: Problem comment: peripheral smear done 04/28 Unclear on chronicity. Likely gastritis from ibuprofen with +guaiac stool. Iron normal. Status: Acute (6) Mild cognitive impairment: Problem comment: Minicog 0/5 04/28 Status: Acute
--- NOTE | 2024-06-15 19:31 | PC.NURSE ---
shift note: pt to rm via bed @ [id number]. pt a&o x3. pt up to bsc x2 with 200cc void. IV patent. pt tolerating regular diet.
[2024-06-15] MEDS: SIMVASTATIN 20 MG TABLET PO (20:28)
[2024-06-15] MEDS: SENNOSIDES 1 TAB TABLET 2 TAB PO (20:28)
[2024-06-15] MEDS: ONDANSETRON 2 MG/ML inj 4 MG IVP (20:28)
[2024-06-16] VITALS (11 sets, daily range): BP systolic 105–147; BP diastolic 54–70; PULSE 80–91; RESP 16–18; TEMP 36.7–37.6; O2SAT 91–97
[2024-06-16] MEDS: CEFAZOLIN 1 GM in 0.9 % SODIUM CHLORIDE Mini-bag 100 ML IVPB ×2 (00:36→08:44)
[2024-06-16] MEDS: ONDANSETRON 2 MG/ML inj 4 MG IVP ×3 (00:37→19:16)
[2024-06-16] MEDS: ACETAMINOPHEN 500 MG TABLET 1000 MG PO ×3 (05:37→18:40)
[2024-06-16] MEDS: CARBIDOPA-LEVODOPA 25-100 TABLET 1 TAB PO ×3 (06:36→18:15)
--- NOTE | 2024-06-16 06:45 | PC.NURSE ---
End of shift note [id number]: Pt alert & oriented x 4 at start of shift though intermittent confusion overnight. For example, pt asked, ?When will I have my surgery tomorrow?? overnight even though she had surgery yesterday. Provider note also has documented mild cognitive impairment/confusion noted. Pt able to transfer with SBA at start of shift though needing assist of 1-2 with bedside commode, gait belt and hemiwalker overnight due to Parkinson?s tremors. Pt also needing a lot of cueing when transferring to bedside commode. Dressing to anterior L shoulder C/D/I with ice applied intermittently throughout the shift. Sling worn to LUE. CMS to LUE intact. Pt wore bilateral plexi pulses for part of the shift though then refused to have reapplied despite education and encouragement. Pt continent and incontinent of bladder throughout the shift. She has been denying pain when asked throughout the shift. Pt has been on RA throughout the shift. Pt had one episode of emesis of undigested food after eating large meal for supper last evening and c/o nausea x 2 with PRN Zofran given x 2 along with aromatherapy patch provided. Temps 98.5-99.7 throughout the shift with IS education provided and return demonstration completed. IV to R hand patent and SL. Bed alarm on, call light within reach. ?
[2024-06-16 07:11] LABS: Hematocrit 25.4 % (33.0-51.0); Mean Corpuscular HGB Conc 32 gm/dL (32-36); Mean Corpuscular Hemoglobin 28 pg (26-34); Mean Corpuscular Volume 89 fL (80-100); Platelet Count* 189 K/uL (140-440); Red Blood Count 2.87 m/uL (4.00-5.20); White Blood Count* 19.03 K/uL (4.50-11.00)
[2024-06-16 07:16] LABS: Slide Review Reflex No
[2024-06-16 07:19] LABS: Sodium* 136 mmol/L (135-149)
[2024-06-16 07:20] LABS: Potassium* 3.6 mmol/L (3.6-5.1)
[2024-06-16 07:23] LABS: Blood Urea Nitrogen* 16 mg/dL (7-30); Creatinine* 0.5 mg/dL (0.5-1.5); Est. Creatinine Clearance* 43.07; Estimated Glomerular Filt Rate 97 ml/min
[2024-06-16] MEDS: SENNOSIDES 1 TAB TABLET 2 TAB PO ×2 (08:45→20:44)
[2024-06-16] MEDS: ESCITALOPRAM 10 MG TABLET 20 MG PO (08:45)
[2024-06-16] MEDS: OXYCODONE 5 MG TABLET PO (08:45)
[2024-06-16] MEDS: FOLIC ACID 1 MG TABLET PO (08:45)
[2024-06-16 11:33] LABS: Appearance Urine Clear (Clear); Bilirubin Urine Negative (Negative); Blood Urine 2+ (Negative); Color Urine Dark yellow (Yellow); Glucose Urine Negative (Negative); Ketones Urine Trace (Negative); Leukocyte Esterase Urine Trace (Negative); Nitrite Urine Negative (Negative); Protein Urine 1+ (Negative); Urobilinogen Urine 0.2 (0.2-1.0)
[2024-06-16] MEDS: INSULIN ASPART 100 UNIT/ML SUBCUT (11:42)
[2024-06-16 12:04] LABS: RBC Urine 25-50 (0-2)
--- NOTE | 2024-06-16 13:12 | PM.IMPN1 ---
Progress Note: A&P Assessment and plan (1) Status post reverse arthroplasty of left shoulder: Problem details: Left reverse shoulder arthroplasty (06/15/24, Dr. Flowers) Status: Acute (2) Parkinson's disease: Problem details: saw Alis Timmons Neurology 05/29 (Sinemet trial started then). Continuing Sinemet postoperatively. Status: Acute (3) Type 2 diabetes mellitus: Problem details: Bedside glucose monitoring. Status: Acute (4) Hypertension: Problem details: Holding home meds appropriately postoperatively Status: Acute (5) Normocytic anemia: Problem details: peripheral smear done 04/28 Unclear on chronicity. Likely gastritis from ibuprofen with +guaiac stool. Iron normal. Status: Acute (6) Mild cognitive impairment: Problem details: - Minicog 0/5 04/28 - in association with Parkinson Disease Status: Acute (7) Acute delirium: Problem details: -likely related to underlying cognitive impairment associated with Parkinson's disease plus postoperative state and new setting -nevertheless will check a urine analysis and urine culture given history of recurrent UTIs, most recently E coli UTI on 03/05/2024 -will not discharge home today. Requires additional observation and supervision. -obtain liver function panel to further assess. Status: Acute Plan 1. Reviewed impression with patient, daughter, and Orthopedic surgery physician assistant county engineer. 2. Recommended admission to inpatient status so we can further assess and treat as warranted 3. Answered their questions to their satisfaction. They are agreeable to admitting to the inpatient setting at this time. 4. Continue with other supportive efforts. Time Spent With Patient Total time spent: 45 minutes Subjective Date Seen: 06/16/24 Interval history: Postoperative day 1. Status post left reverse shoulder arthroplasty. Hospital day 2. Acute delirium. 74-year-old woman with known underlying cognitive impairment in association with evolving Parkinson's disease underwent elective left reverse shoulder arthroplasty yesterday. Beginning last night she was starting to exhibit increasing sense of confusion. Reportedly she slept adequately at night. This morning and throughout the day today she continues to have greater than baseline level of confusion and forgetfulness. Exhibiting inability to follow directions to care for herself status post surgery. Daughter indicates great hesitancy about being able to provide 24 hour support for her mother at this time. This is a marked change from preoperatively. Exam Narrative: Exam Narrative: T-max 99.7? F. Now afebrile. Examined patient in her hospital room with her daughter present. Appears comfortable and in no acute distress. Alert and oriented to self and needs to be reoriented to place and time and situation. Asks the same question more than once despite answering each time to her satisfaction. Left shoulder in sling. Able to move left fingers. Lungs clear to auscultation. Heart tones regular rhythm. Abdomen with active bowel sounds, soft, nontender. No focal motor neurologic deficits. Skin is intact without obvious rash. Const: Vital Signs, click to edit/add: Vital Signs - 24 hr 06/15/24 13:15 06/15/24 13:20 06/15/24 13:25 Temperature Pulse Rate 72 73 74 Pulse Rate [Left R adial] Pulse Rate [Pulse Oximeter] Respiratory Rate 14 14 14 Blood Pressure 111/52 L 109/53 L 103/51 L Blood Pressure [Ri ght Arm] Pulse Oximetry 95 94 95 Oxygen Delivery Me thod Nasal Cannula Nasal Cannula Nasal Cannula Oxygen Flow Rate 2 2 2 06/15/24 13:30 06/15/24 13:35 06/15/24 13:47 Temperature 98 F 97.5 F L Pulse Rate 75 76 89 Pulse Rate [Left R adial] Pulse Rate [Pulse Oximeter] Respiratory Rate 14 14 16 Blood Pressure 111/55 L 116/59 L 139/74 Blood Pressure [Ri ght Arm] Pulse Oximetry 94 94 92 Oxygen Delivery Me thod Nasal Cannula Nasal Cannula Room Air Oxygen Flow Rate 2 2 06/15/24 14:30 06/15/24 14:45 06/15/24 15:00 Temperature 98 F 98 F Pulse Rate 72 Pulse Rate [Left R adial] Pulse Rate [Pulse Oximeter] Respiratory Rate 16 14 Blood Pressure 110/63 Blood Pressure [Ri ght Arm] Pulse Oximetry 93 94 94 Oxygen Delivery Me thod Room Air Nasal Cannula Room Air Oxygen Flow Rate 2 06/15/24 15:15 06/15/24 15:30 06/15/24 16:00 Temperature 98 F 98 F 98 F Pulse Rate 70 70 62 Pulse Rate [Left R adial] Pulse Rate [Pulse Oximeter] Respiratory Rate 14 14 16 Blood Pressure 102/54 L 95/51 L 85/47 L Blood Pressure [Ri ght Arm] Pulse Oximetry 93 93 93 Oxygen Delivery Me thod Room Air Room Air Room Air Oxygen Flow Rate 06/15/24 17:00 06/15/24 19:05 06/15/24 19:05 Temperature 98 F 99.0 F 99.0 F Pulse Rate 82 82 Pulse Rate [Left R adial] Pulse Rate [Pulse Oximeter] Respiratory Rate 16 16 16 Blood Pressure 110/56 L 102/59 L Blood Pressure [Ri ght Arm] 102/59 L Pulse Oximetry 96 92 92 Oxygen Delivery Me thod Room Air Room Air Room Air Oxygen Flow Rate 06/15/24 20:15 06/15/24 20:20 06/15/24 21:23 Temperature 98.5 F 98.5 F 98.8 F Pulse Rate 73 76 Pulse Rate [Left R adial] Pulse Rate [Pulse Oximeter] 73 Respiratory Rate 16 16 18 Blood Pressure 114/59 L 110/57 L Blood Pressure [Ri ght Arm] 114/59 L Pulse Oximetry 92 92 92 Oxygen Delivery Me thod Room Air Room Air Room Air Oxygen Flow Rate 06/15/24 23:00 06/15/24 23:51 06/15/24 23:53 Temperature 99.4 F Pulse Rate Pulse Rate [Left R adial] 103 H Pulse Rate [Pulse Oximeter] 103 H Respiratory Rate 18 18 18 Blood Pressure Blood Pressure [Ri ght Arm] 124/70 Pulse Oximetry 93 94 Oxygen Delivery Me thod Room Air Room Air Oxygen Flow Rate 06/16/24 02:50 06/16/24 06:20 06/16/24 07:45 Temperature 99.7 F H 99.2 F 98.0 F Pulse Rate Pulse Rate [Left R adial] Pulse Rate [Pulse Oximeter] 90 91 Respiratory Rate 16 18 Blood Pressure Blood Pressure [Ri ght Arm] 124/70 131/61 Pulse Oximetry 93 91 Oxygen Delivery Me thod Room Air Room Air Oxygen Flow Rate 06/16/24 07:45 06/16/24 09:08 06/16/24 11:22 Temperature 98.6 F Pulse Rate Pulse Rate [Left R adial] Pulse Rate [Pulse Oximeter] 91 86 Respiratory Rate 18 18 18 Blood Pressure Blood Pressure [Ri ght Arm] 107/59 L Pulse Oximetry 91 94 Oxygen Delivery Me thod Room Air Room Air Oxygen Flow Rate Labs Labs: Laboratory Results - last 24 hr 06/16/24 06/16/24 06:11 Unknown WBC 19.03 H RBC 2.87 L Hgb 8.0 L Hct 25.4 L MCV 89 MCH 28 MCHC 32 Plt Count 189 Sodium 136 Potassium 3.6 BUN 16 Creatinine 0.5 Estimated Creat Clear 43.07 Estimated GFR 97 Urine Color Dark yellow Urine Appearance Clear Urine pH 6.0 Ur Specific [place] 1.020 Urine Protein 1+ A Urine Glucose (UA) Negative Urine Ketones Trace A Urine Blood 2+ A Urine Nitrite Negative Urine Bilirubin Negative Urine Urobilinogen 0.2 Ur Leukocyte Esterase Trace A Urine RBC 25-50 A Urine WBC 2-5 Ur Squamous Epith Cells None Urine Bacteria None
[2024-06-16 14:15] LABS: Hematocrit 27.7 % (33.0-51.0); Hemoglobin* 8.6 gm/dL (12.0-16.0); Mean Corpuscular HGB Conc 31 gm/dL (32-36); Mean Corpuscular Hemoglobin 28 pg (26-34); Mean Corpuscular Volume 89 fL (80-100); Platelet Count* 182 K/uL (140-440); White Blood Count* 19.89 K/uL (4.50-11.00)
[2024-06-16 14:16] LABS: Slide Review Reflex No
--- NOTE | 2024-06-16 16:21 | PM.ORPN ---
Subjective Subjective Date Seen: 06/16/24 Principal diagnosis: Status postop day 1 left reverse total shoulder arthroplasty Interval history: Patient reports doing okay overall. No acute events over night. Pain managed with scheduled and PRN medications, ice. Requiring infrequent oxycodone. DVT prophylaxis: SCDs, walking. Denies fevers, chills, aches, N/V, CP, SOB/SHAH, or lightheadedness. Per patient's daughter who is in the room with her, she has noticed more acute delirium now postop day 1. Arriving this morning, patient was very confused, did not know who her daughter was, nor her surroundings. This afternoon, patient was looking for her pajamas getting ready to go to bed. Ortho Exam Narrative Exam Narrative: -Patient appears comfortable in recliner; no apparent acute distress -Alert to self and events. -Operative shoulder swollen; soft, supple tissues; no obvious erythema. Ecchymosis minimal. Warmth appropriate -Surgical dressing clean, dry, intact; no obvious drainage, no erythematous streaking peripheral to the bandage -Bilateral calves soft and supple; no significant swelling, edema, tenderness, erythema, discoloration, warmth, or palpable cords -2+ radial pulse, intact dermatomes and myotomes distally (5/5 strength) Const Vital Signs, click to edit/add: Vital Signs - 24 hr 06/15/24 17:00 06/15/24 19:05 06/15/24 19:05 Temperature 98 F 99.0 F 99.0 F Pulse Rate 82 82 Pulse Rate [Left Radial] Pulse Rate [Pulse Oximeter] Respiratory Rate 16 16 16 Blood Pressure 110/56 L 102/59 L Blood Pressure [Right Arm] 102/59 L Pulse Oximetry 96 92 92 Oxygen Delivery Method Room Air Room Air Room Air 06/15/24 20:15 06/15/24 20:20 06/15/24 21:23 Temperature 98.5 F 98.5 F 98.8 F Pulse Rate 73 76 Pulse Rate [Left Radial] Pulse Rate [Pulse Oximeter] 73 Respiratory Rate 16 16 18 Blood Pressure 114/59 L 110/57 L Blood Pressure [Right Arm] 114/59 L Pulse Oximetry 92 92 92 Oxygen Delivery Method Room Air Room Air Room Air 06/15/24 23:00 06/15/24 23:51 06/15/24 23:53 Temperature 99.4 F Pulse Rate Pulse Rate [Left Radial] 103 H Pulse Rate [Pulse Oximeter] 103 H Respiratory Rate 18 18 18 Blood Pressure Blood Pressure [Right Arm] 124/70 Pulse Oximetry 93 94 Oxygen Delivery Method Room Air Room Air 06/16/24 02:50 06/16/24 06:20 06/16/24 07:45 Temperature 99.7 F H 99.2 F 98.0 F Pulse Rate Pulse Rate [Left Radial] Pulse Rate [Pulse Oximeter] 90 91 Respiratory Rate 16 18 Blood Pressure Blood Pressure [Right Arm] 124/70 131/61 Pulse Oximetry 93 91 Oxygen Delivery Method Room Air Room Air 06/16/24 07:45 06/16/24 09:08 06/16/24 11:22 Temperature 98.6 F Pulse Rate Pulse Rate [Left Radial] Pulse Rate [Pulse Oximeter] 91 86 Respiratory Rate 18 18 18 Blood Pressure Blood Pressure [Right Arm] 107/59 L Pulse Oximetry 91 94 Oxygen Delivery Method Room Air Room Air 06/16/24 15:18 06/16/24 15:20 06/16/24 15:45 Temperature 98.3 F Pulse Rate Pulse Rate [Left Radial] Pulse Rate [Pulse Oximeter] 86 86 Respiratory Rate 18 18 18 Blood Pressure Blood Pressure [Right Arm] 105/54 L Pulse Oximetry 94 94 Oxygen Delivery Method Room Air Room Air Assessment and Plan Assessment and plan (1) Status post reverse arthroplasty of left shoulder: Problem details: Left reverse shoulder arthroplasty (06/15/24, Dr. Flowers) Status: Acute (2) Acute delirium: Problem details: -likely related to underlying cognitive impairment associated with Parkinson's disease plus postoperative state and new setting -nevertheless will check a urine analysis and urine culture given history of recurrent UTIs, most recently E coli UTI on 03/05/2024 -will not discharge home today. Requires additional observation and supervision. -obtain liver function panel to further assess. Status: Acute Plan - Complete 23 hour perioperative antibiotics. - PT/OT consult for education and assistance. - Social work consult for discharge planning - Prescribed analgesics as needed - DVT prophylaxis: walking, and SCDs - Anticipation is not determined at this time due to patient's acute delirium/postop delirium. She will now be made inpatient for monitoring. She continues to receive PT/OT in hospital.
[2024-06-16 17:16] LABS: Albumin* 3.4 g/dL (3.3-5.0)
[2024-06-16 17:18] LABS: Bilirubin Total* 0.5 mg/dL (0.1-1.5); Total Protein* 5.8 g/dL (6.0-8.3)
[2024-06-16 17:19] LABS: Alanine Aminotransferase* 8 U/L (4-35); Alkaline Phosphatase* 68 U/L (40-150); Aspartate Amino Transferase* 21 U/L (12-35)
--- NOTE | 2024-06-16 19:20 | PC.NURSE ---
End of Shift: Patient pleasant and cooperative, patient is only oriented to self, easily reoriented. VSS, afebrile. Patient reports feeling nauseas this morning, managed with PRN medication, see MAR. Patient reports pain in her left shoulder this shift, managed with PRN medication, see MAR. Tolerating regular diet. A1 with stephan walker and gait belt.
[2024-06-16] MEDS: SIMVASTATIN 20 MG TABLET PO (20:45)
[2024-06-17] MEDS: ACETAMINOPHEN 500 MG TABLET 1000 MG PO ×3 (00:06→12:20)
[2024-06-17 04:00] VITALS: BP 128/63; PULSE 74; RESP 16; TEMP 36.9; O2SAT 94
[2024-06-17] MEDS: CARBIDOPA-LEVODOPA 25-100 TABLET 1 TAB PO ×2 (06:38→11:27)
[2024-06-17 06:54] LABS: HCO3 VBG 29 mmol/L (21-28); PCO2 VBG 42 mmHG (40-50); PO2 VBG 38.4 mmHG (25-47); pH VBG 7.447 (7.32-7.43)
--- NOTE | 2024-06-17 07:07 | PC.NURSE ---
END OF SHIFT NOTE: PT PLEASANT AND COOPERATIVE WITH CARES. A&O. PT DENIES CP, SOB, N/V. AMBULATES WITH SBA/GB/4-PRONGED CANE. VSS ON RA; AFEBRILE. INCONTINENT OF URINE x1. DRESSING TO LEFT SHOULDER CDI. SLING TO LEFT ARM. ACTIVE ICE IN PLACE. BED ALARM ON AND CALL LIGHT WITHIN PT?S REACH.?
[2024-06-17 07:26] LABS: Basophils Percent Auto 0.1 % (0.0-3.0); Eosinophils Percent Auto 0.1 % (0.0-7.0); Hematocrit 26.5 % (33.0-51.0); Hemoglobin* 8.2 gm/dL (12.0-16.0); Immature Granulocytes Pct Auto 0.5 %; Lymphocytes Percent Auto 6.2 % (20-44); Mean Corpuscular HGB Conc 31 gm/dL (32-36); Mean Corpuscular Hemoglobin 28 pg (26-34); Mean Corpuscular Volume 90 fL (80-100); Monocytes Percent Auto 50.5 % (0.0-11.0); Neutrophils Percent Auto 42.6 % (42.0-72.0); Platelet Count* 174 K/uL (140-440); RDW Coefficient of Variation % 16.8 % (11.5-15.5); Red Blood Count 2.96 m/uL (4.00-5.20); White Blood Count* 14.13 K/uL (4.50-11.00)
[2024-06-17 07:36] LABS: Slide Review Reflex No
[2024-06-17 07:49] VITALS: BP 123/62; PULSE 80; RESP 16; TEMP 36.9; O2SAT 92
[2024-06-17 07:49] LABS: Iron* 16 ug/dL (37-170)
[2024-06-17 07:55] LABS: Chloride* 107 mmol/L (96-114)
[2024-06-17 07:56] LABS: Potassium* 3.6 mmol/L (3.6-5.1); Sodium* 139 mmol/L (135-149)
[2024-06-17 07:58] LABS: Creatinine* 0.4 mg/dL (0.5-1.5); Est. Creatinine Clearance* 43.07; Estimated Glomerular Filt Rate 103 ml/min; Percent Iron Saturation 7 % (20-50); Total Iron Binding Capacity 239 ug/dL (265-497)
[2024-06-17 07:59] LABS: Anion Gap 6 mEq/L (7-15); Blood Urea Nitrogen* 14 mg/dL (7-30); Carbon Dioxide* 26 mmol/L (20-32); Glucose* 103 mg/dL (60-115)
[2024-06-17 08:00] LABS: Calcium* 8.3 mg/dL (8.4-10.6)
[2024-06-17 08:18] LABS: C Reactive Protein* 23.4 mg/dL (0.5-1.0)
[2024-06-17 08:21] LABS: Thyroid Stimulating Hormone* 0.633 uIU/mL (0.270-4.20)
[2024-06-17] MEDS: ESCITALOPRAM 10 MG TABLET 20 MG PO (08:49)
[2024-06-17] MEDS: SENNOSIDES 1 TAB TABLET 2 TAB PO (08:49)
[2024-06-17] MEDS: FOLIC ACID 1 MG TABLET PO (08:49)
--- NOTE | 2024-06-17 09:20 | PC.SOCIAL ---
Discharge planning: Met with pt and dtr in room regarding d/c plan. Dtr states she will take pt home at discharge. She stated she was considering a short term TCU placement but is not currently. Answered dtr's questions about bed availability at facilities. There are currently no TCU beds availablr in [place]. Dtr is aware of how to request social work services if she decides pt can not be discharged to home. nuclear worker technician to follow up as needed.
[2024-06-17 11:24] VITALS: BP 127/69; PULSE 78; RESP 16; TEMP 36.9; O2SAT 93
--- NOTE | 2024-06-17 14:20 | PC.NURSE ---
Pt alert and oriented. Pt had complaints of minimal pain; scheduled medications given. Pt?s daughter at bedside. Pt?s dressing is right and intact; left arm in sling. Pt assist of one-SBA with gait be and cane. Pt?s IV removed; catheter intact. Pt discharged home with daughter.?
--- NOTE | 2024-06-17 15:04 | PM.DS1 ---
DS: Providers Provider Date Seen: 06/17/24 Date of admission: 06/16/24 13:12 Primary care physician: Mary Espinoza MD Admitting Clinician: Azael Flowers MD Consults: 06/15/24 14:02 Consult to Occupational Therapy [CONS] Routine Comment: Reason(s) for OT Consult:: Evaluate and Treat Any Restrictions?:: See Comment Comment: ROM elbow, forearm, wrist, digits PRN Shoulder pendulums okay No active shoulder ROM Consult to Physical Therapy [CONS] Routine Comment: Reason(s) for PT Consult:: Evaluate and Treat Any Restrictions?:: No Restrictions Consult to Physician [CONS] Routine Comment: Consulting Provider: Hospitalists Has provider been notified: No Consult to Professional Organizer [CONS] Routine Comment: Reason for Consult:: Discharge Planning Needs Attending Physician on discharge: Azael Flowers MD Date of Discharge: 06/17/24 DS: Diagnosis Discharge Diagnosis (1) Status post reverse arthroplasty of left shoulder: Status: Acute Problem details: Left reverse shoulder arthroplasty (06/15/24, Dr. Flowers) (2) Acute delirium: Status: Acute Problem details: -likely related to underlying cognitive impairment associated with Parkinson's disease plus postoperative state and new setting -nevertheless will check a urine analysis and urine culture obtained and were negative, most recently E coli UTI on 03/05/2024 -did not discharge home 05/17/2020 fours originally anticipated. Required additional observation and supervision. -hematologic and biochemical studies do not demonstrate obvious etiology. -back to baseline on discharge date 06/17/2024 (3) Parkinson's disease: Status: Acute Problem details: saw [facility] 05/29 (Sinemet trial started then). Continuing Sinemet postoperatively. (4) Mild cognitive impairment: Status: Acute Problem details: - Minicog 0/5 04/28 - in association with Parkinson Disease (5) Type 2 diabetes mellitus: Status: Acute Problem details: Bedside glucose monitoring. (6) Hypertension: Status: Acute Problem details: Holding home meds appropriately postoperatively (7) Normocytic anemia: Status: Acute Problem details: -peripheral smear done 04/28 -Unclear on chronicity. Likely gastritis from ibuprofen with +guaiac stool -low iron on 06/16/2024 -continue with oral iron supplementation as initiated in outpatient setting for now and follow-up with primary care physician about possible IV infusion of iron plus additional assessments if warranted (8) Hyperlipidemia: Status: Chronic (9) Anxiety: Status: Chronic (10) B12 deficiency: Status: Acute Problem details: 03/17/24 value<159. Daily replacement beginning 03/22/24. DS: Summary Hospital Course Hospital Course: 74-year-old woman underwent elective left reverse shoulder arthroplasty. Developed mild delirium postoperatively which resolved within about 24 hours. No specific etiology was determined for the delirium save she has baseline cognitive impairment in association with underlying Parkinson's disease. Discharge back to her living setting with her daughter, October. Status at Discharge Functional status at discharge: uses cane/walker Overall status at discharge: patient is progressing back to baseline Time Spent with Patient Time attestation: Total time spent providing and/or coordinating discharge services: Time spent: Greater than 30 minutes Exam Narrative: Exam Narrative: Afebrile. Examined patient in her hospital room with her daughter present. Also assessed her as she walked in the hallway with her cane. Appears comfortable and in no acute distress. Alert and oriented x4. Back to baseline. Left shoulder in sling. Able to move left fingers. Lungs clear to auscultation. Heart tones regular rhythm. Abdomen with active bowel sounds, soft, nontender. No focal motor neurologic deficits. Skin is intact without obvious rash. Const: Vital Signs, click to edit/add: Vital Signs - 24 hr 06/16/24 15:18 06/16/24 15:20 06/16/24 15:45 Temperature 98.3 F Pulse Rate [Left R adial] Pulse Rate [Pulse Oximeter] 86 86 Respiratory Rate 18 18 18 Blood Pressure [Ri ght Arm] 105/54 L Pulse Oximetry 94 94 Oxygen Delivery Me thod Room Air Room Air Oxygen Flow Rate 06/16/24 19:20 06/16/24 19:21 06/16/24 23:55 Temperature 98.3 F 99.4 F Pulse Rate [Left R adial] 89 Pulse Rate [Pulse Oximeter] 80 Respiratory Rate 16 18 Blood Pressure [Ri ght Arm] 147/69 H Pulse Oximetry 97 Oxygen Delivery Me thod Room Air Oxygen Flow Rate 06/16/24 23:55 06/16/24 23:55 06/17/24 04:00 Temperature 98.8 F 98.4 F Pulse Rate [Left R adial] Pulse Rate [Pulse Oximeter] 80 74 Respiratory Rate 18 18 16 Blood Pressure [Ri ght Arm] 134/65 128/63 Pulse Oximetry 96 96 94 Oxygen Delivery Me thod Room Air Room Air Room Air Oxygen Flow Rate 06/17/24 07:49 06/17/24 07:49 06/17/24 11:24 Temperature 98.5 F 98.4 F Pulse Rate [Left R adial] Pulse Rate [Pulse Oximeter] 80 78 Respiratory Rate 16 16 16 Blood Pressure [Ri ght Arm] 123/62 127/69 Pulse Oximetry 92 92 93 Oxygen Delivery Me thod Room Air Room Air Room Air Oxygen Flow Rate 0 DS: Data Data Completed and Pending Labs on day of discharge: Labs from last 24 hours 06/17/24 06/16/24 06/16/24 06:13 13:11 06:11 WBC 14.13 H RBC 2.96 L Hgb 8.2 L Hct 26.5 L MCV 90 MCH 28 MCHC 31 L RDW Coeff of Evaristo 16.8 H Plt Count 174 Neut % (Auto) 42.6 Lymph % (Auto) 6.2 L Clayton % (Auto) 50.5 H Eos % (Auto) 0.1 Baso % (Auto) 0.1 Neut # (Auto) 6.00 Lymph # (Auto) 0.90 Clayton # (Auto) 7.10 H Eos # (Auto) 0.00 Baso # (Auto) 0.00 Abs Immat Gran (auto) 0.10 Imm/Tot Granulo (auto) 0.5 VBG pH 7.447 H VBG pCO2 42 VBG pO2 38.4 VBG HCO3 29 H Sodium 139 Potassium 3.6 Chloride 107 Carbon Dioxide 26 Anion Gap 6 L BUN 14 Creatinine 0.4 L Estimated Creat Clear 43.07 Estimated GFR 103 Glucose 103 Calcium 8.3 L Iron 16 L TIBC 239 L % Saturation 7 L Total Bilirubin 0.5 Direct Bilirubin 0.0 AST 21 ALT 8 Alkaline Phosphatase 68 C-Reactive Protein 23.4 H Total Protein 5.8 L Albumin 3.4 TSH 0.633 Lab Acknowledgement Test Added Preliminary micro results at discharge 06/16/24 Unknown Urine Culture - Preliminary Urine,Clean Catch No growth. Discharge Plan Discharge Disposition: Home, Self-Care Date of Admission: 06/16/24 13:12 Attending Provider on Discharge: Azael Flowers Consulting Providers: Yadira Rayo; Becca May; Se Bryson; Ralph Sullivan; Roland Seymour; Sugar Garcia; Tessie Griffith; Zahraa Hernández; Caroline Henson; Dario Samuel; Libby Serna; Sacha Atkins; Usman Thorpe; Karlene Cifuentes; Lucio Sainz; Dennis Chaudhary; Karl Rodriguez; Carolina Magallanes; Denver Hope; Ani Burroughs; Natasha Lopez; Rosanna Mason; Soledad Herman; Cristel Holt; Rafa Breen; Durga Clinton; Marek Medrano; Mary Back; Henok Jacques; Savage Gilmore Primary Care Provider: Mary Espinoza Condition: Stable Anticipated Discharge Date/Time: 06/17/24 11:55 Discharge Medications: New sennosides-docusate sodium [Senna-S] 8.6-50 mg tablet 1 - 4 tab-cap PO BID PRN (Reason: constipation) Qty: 60 0RF Rx Instructions: Hold medication if experiencing loose stools. oxycodone 5 mg tablet 2.5 - 5 mg PO Q4-6H MDD 6 PRN (Reason: pain) Qty: 42 0RF Rx Instructions: Take as needed for postop pain: 2.5mg mild pain, 5mg moderate-severe pain; wean as tolerated. Continued metformin 500 mg tablet extended release 24 hr 2,000 mg PO HS escitalopram oxalate 20 mg tablet 20 mg PO DAILY simvastatin 20 mg tablet 20 mg PO HS alendronate 70 mg tablet 70 mg PO MO carbidopa-levodopa 25-100 mg tablet 1 tab PO TID Vitron-C 65 mg iron- 125 mg tablet,delayed release (DR/EC) 1 tab PO DAILY losartan 100 mg tablet 100 mg PO HS Qty: 90 3RF acetaminophen 650 mg tablet extended release 1,300 mg PO Q12H Qty: 120 0RF mecobalamin (vitamin B12) [B12 Active] 1,000 mcg tablet,chewable 1,000 mcg PO DAILY Qty: 30 0RF folic acid 1 mg tablet 1 mg PO DAILY Qty: 30 0RF Discharge Orders: Discharge Order (Routine); Ordered 06/17/24 Ordered By: Sacha Herrera Consulting provider completed their portion of the discharge: Yes Patient Education: Oxycodone, Rapid Release (By mouth), Senna (By mouth), Shoulder Arthroplasty (DC) Additional Instructions: 1. Follow-up with PCP Dr. Espinoza in 5-10 days with pre-visit hemoglobin. Discuss possible GI referral and possibility of outpatient IV infusion of iron in addition to oral iron supplementation for iron deficiency anemia. 2. Continue with Home care services as already established. 3. Follow-up with orthopedic surgery per orthopedic surgery orders. Activity Level: Activity as Tolerated and Use Cane Activity Detail: Wound: ? Remove surgical dressing after 5 days. Remove dressing sooner if integrity is in question. ? No immersing wound in water; showering okay with bandage in place; light scrub with your hand and body soap, rinse, dab dry. After the bandage is removed, the same shower instructions apply. ? Sutures are under the skin, will dissolve over time; allow surgical glue to come off naturally; do not scrub the wound or apply ointments/lotions. ? Call our office with any redness that streaks, excessive drainage from the wound, or wound gapping. Ice/Elevate: ? Ice as needed for swelling and discomfort, typically 20min on/20min off. It is okay if you fall asleep with ice in place if there is a barrier between you and the ice to prevent skin harm. Elevate hand/forearm above the heart via propping on pillows. Motion/Exercise: ? Walk as tolerated. ? No Weight bear operative extremity ? Range of motion of any joint (including fingers) out of splint 10+ times per day as tolerated (Elbow, forearm, wrist, digits). Shoulder pendulums are encouraged. ? Sling to be worn most of time: May remove for showering, ROM as noted above, pendulums, and if sedentary in a safe / stable environment - it is to be a reminder not to reach for things or rotate the shoulder. ? No lifting greater than coffee cup in weight, operative extremity ? PT/OT exercises as explained/prescribed. Pain Medications: ? Oral narcotic as prescribed. Wean as tolerated. Additional acetaminophen as needed. Driving: ? Do not drive while taking narcotic pain medication. ? Do not drive with the sling on. ? If driving, do not use operative extremity to control the steering wheel. Dental: ? No elective dental work for 3 months post-op. If there is an urgent/emergent dental need, contact our office for an antibiotic prescription. Smoking/Alcohol: ? Do not smoke; do no drink alcohol especially when taking postoperative oral narcotic medication. Seek Care from your Primary Care Provider if you experience the following issues in the postoperative phase and beyond: ? Bacterial infections such as: pneumonia, bacterial skin infection (cellulitis), UTI, high fever, chills unrelated to the operative body part - call your primary care physician urgently for treatment in hopes to protect your health and the metal implant(s). Referrals: ? PT, OT per patient preference ? evaluate & treat reverse total shoulder arthroplasty protocol (PROM, elbow motion, pendulums, ADLs) Vaccines: ? No vaccines until 4-6 weeks postop Follow up: ? [facility] visit in 1 week ? Ortho surgeon follow-up in 6 weeks; repeat radiographs three views operative shoulder If there are any acute concerns regarding your surgery, please call our orthopedic clinic ([phone]) Discharge Diet: Diabetic Follow Up Appointments: Mary Espinoza MD [Primary Care Provider] - 06/21/24 2:30 pm ([facility] for follow up with PCP. Lab Appointment on 06/20 @10:15am for hemoglobin check) Sacha Herrera PA-C [Physician Furniture Sander] - 06/23/24 9:10 am ([facility]) Forms: [employer] Info Instructions
== END 2024-06-17 13:15 | disposition home or self-care (01) | DRG 483 ==
LOC: OR 13:13 → MEDSURG 13:13
PROVIDERS: Internal Medicine; Admitting Provider Orthopaedic Surgery Sports Medicine; PCP Internal Medicine; Visit Provider Orthopaedic Surgery Sports Medicine
PROC: 0RRJ0JZ Replacement of Right Shoulder Joint with Synthetic Substitute, Open Approach (ICD-10-PCS; CPT 23472; principal; 2024-06-15 10:30)
DX: M75.122 Complete rotator cuff tear or rupture of left shoulder, not specified as traumatic (principal); F05 Delirium due to known physiological condition; M19.012 Primary osteoarthritis, left shoulder; G89.18 Other acute postprocedural pain; G20.A1 Parkinson's disease without dyskinesia, without mention of fluctuations; F32.A Depression, unspecified; M51.369 Other intervertebral disc degeneration, 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 or lower extremity pain; M48.26 Kissing spine, lumbar region; I10 Essential (primary) hypertension; D64.9 Anemia, unspecified; E11.9 Type 2 diabetes mellitus without complications; F06.70 Mild neurocognitive disorder due to known physiological condition without behavioral disturbance; F41.9 Anxiety disorder, unspecified; E78.5 Hyperlipidemia, unspecified; E53.8 Deficiency of other specified B group vitamins; Z87.440 Personal history of urinary (tract) infections; R82.90 Unspecified abnormal findings in urine
CPT/HCPCS: 23472; 01638; 36415; 51798; 64415; 73030; 76942; 80048; 80076; 81001; 82565; 82803; 82962; 83540; 83550; 84132; 84295; 84443; 84520; 85025; 85027; 86140; 87086; 97110; 97116; 97161; 97165; 97530; 97535; 99100; A9270; C1713; C1776; J0690; J1100; J2250; J2371; J2405; J2704; J2795; J3010; J3490; J7120

== ENCOUNTER 2024-06-27 13:22 | Observation (INO) | payer MEDICARE, SELFPAY ==
[2024-06-27 13:51] VITALS: BP 144/76; PULSE 88; RESP 18; TEMP 37.2; O2SAT 95; BMI 25.8
--- NOTE | 2024-06-27 15:14 | CRLHL7_ITS ---
For Patients: As a result of the Cures Act, medical imaging exams and procedure reports are released immediately into your electronic medical record. You may view this report before your referring provider. If you have questions, please contact your health care provider. INDICATION: Cough. TECHNIQUE: Chest 1 views. COMPARISON: None. FINDINGS: Cardiovascular and mediastinum: Heart size and vasculature are normal in caliber and appearance. Lungs and pleural spaces: Interstitial prominence. No sign of infiltrate or mass. No sign of pleural effusion. No pneumothorax. Bones and soft tissues: No significant findings. IMPRESSION: Interstitial prominence. No focal consolidations. Dictated by Rafa Garcia MD @ 06/27/2024 4:44:12 PM (Electronically Signed)
--- NOTE | 2024-06-27 15:26 | ED_ITS ---
HPI - General Adult General Date Seen: 06/27/24 <Tanja Espinal MD - Last Filed: 06/30/24 11:54> Chief complaint: Weakness <Tanja Espinal MD - Last Filed: 06/30/24 11:54> Stated complaint: Covid+ over a week ago, weakness <Tanja Espinal MD - Last Filed: 06/30/24 11:54> Time Seen by Provider: 06/27/24 13:56 <Tanja Espinal MD - Last Filed: 06/30/24 11:54> Source: patient and family <Tanja Espinal MD - Last Filed: 06/30/24 11:54> History of Present Illness HPI narrative: Patient is a 74-year-old woman here for generalized weakness. She had a shoulder surgery done on her left shoulder on June 15, then a couple days later came down with COVID. She is now testing negative for COVID but continues to have a cough which she feels is getting worse instead of better. Today she felt just generally weak and have was having more difficulty getting around. She has been using a cane, used a walker prior to her surgery, but her daughter says that she has been doing pretty well with the cane. She has not had any falls. She denies chest pain or shortness of breath. She has not had abdominal pain, vomiting or diarrhea. She has had some chronic anemia which is being worked up, hemoglobin was 8.2 when it was checked in clinic last week. This was postoperatively. She has not had any unusual leg pain or swelling. She does not smoke. Lives at home with her . Her daughter is a PA, reports that sometimes her mom has days which are worse than others in terms of her Parkinson's, and this may be just be 1 of those days, but they wanted to get her checked out. <Tanja Espinal MD - Last Filed: 06/30/24 11:54> Related Data Home medications: Home Medications ?Medication ?Instructions ?Recorded ?Confirmed alendronate 70 mg tablet 70 mg PO MO 03/10/24 06/27/24 escitalopram oxalate 20 mg tablet 20 mg PO DAILY 03/10/24 06/27/24 metformin 500 mg tablet,extended 2,000 mg PO HS 03/10/24 06/27/24 release 24 hr simvastatin 20 mg tablet 20 mg PO HS 03/10/24 06/27/24 carbidopa 25 mg-levodopa 100 mg 1 tab PO TID 05/31/24 06/27/24 tablet iron,carbonyl 65 mg-vitamin C 125 1 tab PO DAILY 05/31/24 06/27/24 mg tablet,delayed release (Vitron-C) Previous Rx's ?Medication ?Instructions ?Recorded acetaminophen 650 mg 1,300 mg (2 x 650 mg) PO Q12H #120 03/17/24 tablet,extended release tabs folic acid 1 mg tablet 1 mg PO DAILY #30 tabs 03/17/24 mecobalamin (vitamin B12) 1,000 1,000 mcg PO DAILY #30 tabs 03/17/24 mcg chewable tablet (B12 Active) losartan 100 mg tablet 100 mg PO HS #90 tabs 05/31/24 cephalexin 500 mg capsule 500 mg PO TID 4 days #12 caps 06/28/24 <Tanja Espinal MD - Last Filed: 06/30/24 11:54> Allergies/adverse reactions: Allergies Allergy/AdvReac Type Severity Reaction Status Date / Time tramadol (From Ultram) AdvReac Intermediate Nausea Verified 06/27/24 17:11 <Tanja Espinal MD - Last Filed: 06/30/24 11:54> Review of Systems Status of ROS: Reports: 10 or more systems reviewed and unremarkable except as noted in History and below <Tanja Espinal MD - Last Filed: 06/30/24 11:54> [facility] Medical History: Medical History (Updated 06/30/24 @ 08:26 by Mary Espinoza MD) History of vitamin D deficiency ?Z86.39 - Personal history of other endocrine, nutritional and metabolic disease (ICD-10) <Tanja Espinal MD - Last Filed: 06/30/24 11:54> Surgical History: Surgical History 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 Lives with daughter October. Nonsmoker, no concerning ETOH use. Full Code status. What is your current living situation?: I presently have a place to live Problems where you live: no known problems and declined to answer Problems where you live details: na In the past 12 months, utilities in danger of being shut off: no In past 12 months, lack of transportation kept you from medical appts, meetings, work, or getting things needed for daily living: no In the past 12 mos, have been you worried that your food would run out before you had money to buy more?: never true In the past 12 mos, the food you bought just didn't last and you didn't have money to buy more?: never true Highest level of school completed/degree received: Associate degree: occupational, technical, vocational program Smoking Status: Never smoker Second hand tobacco smoke exposure: No How often do you have a drink containing alcohol: never AUDIT-C Alcohol total score: 0 Non-prescribed substance use: denies use Caffeine: Yes How often does anyone, including family, friends and others, physically hurt you : never How often does anyone, including family, friends and others, insult or talk down to you: never How often does anyone, including family, friends and others, threaten you with harm: never How often does anyone, including family, friends and others, scream or curse at you: never service: No <Tanja Espinal MD - Last Filed: 06/30/24 11:54> Exam Narrative: Exam Narrative: Vital signs reviewed In general, alert, nontoxic elderly woman. Head: Normocephalic, atraumatic. Eyes: Sclera clear. Pupils equal and reactive. ENT: Mucous membranes moist. Neck: Supple without adenopathy. Heart: Regular rate and rhythm without murmur. Lungs: Clear. No increased work of breathing, crackles or wheezes. Abdomen: Soft, nontender to palpation. Extremities: Well perfused, pulses intact. No significant edema. Neurologic: Alert, conversant. Speech fluent, face symmetric. Moves all extremities equally, with the exception of her left shoulder which is in a shoulder immobilizer. Finger-nose testing on the right was normal, and she is able to do heel mccabe testing. No evidence of ataxia. Skin: Warm, dry well perfused. Affect: Normal. <Tanja Espinal MD - Last Filed: 06/30/24 11:54> Const: Vital Signs, click to edit/add: Vital Signs - 24 hr 06/27/24 13:51 06/27/24 15:37 06/27/24 17:30 Temperature 98.9 F 99.1 F 99.0 F Pulse Rate [Pulse Oximeter] 88 80 80 Respiratory Rate 18 18 18 Blood Pressure [Ri ght Upper Arm] 144/76 H 146/75 H 175/97 H Pulse Oximetry 95 97 96 Oxygen Delivery Me thod Room Air Room Air <Tanja Espinal MD - Last Filed: 06/30/24 11:54> Vital Signs, click to edit/add: Vital Signs - 24 hr 06/27/24 13:51 06/27/24 15:37 06/27/24 17:30 Temperature 98.9 F 99.1 F 99.0 F Pulse Rate [Pulse Oximeter] 88 80 80 Respiratory Rate 18 18 18 Blood Pressure [Ri ght Upper Arm] 144/76 H 146/75 H 175/97 H Pulse Oximetry 95 97 96 Oxygen Delivery Me thod Room Air Room Air <Lissa Mauro MD - Last Filed: 06/27/24 18:53> Course Course ED Course: I have ordered blood work, UA, chest x-ray to evaluate for possible infection, PE, pneumonia, metabolic derangement, anemia. These are pending. Patient will be signed out to Dr. Miller to follow-up on these, please see addendum for final disposition and plan. I did talk with patient's daughter to review with her the plan, and Dr. Miller will speak with her as well. <Tanja Espinal MD - Last Filed: 06/30/24 11:54> Reevaluation(s) Time of Reevaluation #1: 16:33 <Lissa Mauro MD - Last Filed: 06/27/24 18:53> Reevaluation #1: Have reviewed with patient that her white blood count, D-dimer elevated. Her hemoglobin is at 8.8. Pre-surgery her hemoglobin was 10.2, blood loss was reported to be minimal from her recent shoulder surgery that happened on June 15. Post surgery she was 8, is currently on iron and B12. Patient did have confirmation of iron deficiency anemia on June 17 with a low iron of 16, TIBC was low and % saturation was low at 7. They are aware that we will be proceeding with chest CT PE protocol to rule out pneumonia, rule out thromboembolic disease in form of pulmonary embolus. <Lissa Mauro MD - Last Filed: 06/27/24 18:53> Time of Reevaluation #2: 18:51 <Lissa Mauro MD - Last Filed: 06/27/24 18:53> Reevaluation #2: Have updated her daughter Anca Chavez. She is aware of the pulmonary nodules that will require outpatient follow-up. It would seem that there is urinary tract infection causing current symptoms. October states her mom did have her up almost hourly last night to go to the bathroom, I have noted the patient up frequently with staff to go to the bathroom here as well. Her mom does have increased urination overnight but not that frequent baseline. There is no evidence of pulmonary embolus, no pneumonia on her chest CT. <Lissa Mayberry MD - Last Filed: 06/27/24 18:53> Consultations Consultation #1: Spoke with the hospitalist Dr. May. She accepts patient. <Lissa Mauro MD - Last Filed: 06/27/24 18:53> Time: 18:44 <Lissa Mauro MD - Last Filed: 06/27/24 18:53> Vital Signs Vital signs: Initial Vital Signs Temperature 98.9 F 12/23/24 13:51 Temperature Source Temporal Artery Scan 06/27/24 13:51 Pulse Rate 88 06/27/24 13:51 Respiratory Rate 18 06/27/24 13:51 Blood Pressure 144/76 H 06/27/24 13:51 Blood Pressure Mean 98 06/27/24 13:51 Blood Pressure Position Sitting 06/27/24 13:51 Pulse Oximetry 95 06/27/24 13:51 Oxygen Delivery Method Room Air 06/27/24 13:51 Vital Signs Temperature 98.9 F 06/27/24 13:51 Pulse Rate 88 06/27/24 13:51 Respiratory Rate 18 06/27/24 13:51 Blood Pressure 144/76 H 06/27/24 13:51 Pulse Oximetry 95 06/27/24 13:51 Oxygen Delivery Method Room Air 06/27/24 13:51 Temperature 99.4 F 06/28/24 09:27 Pulse Rate 76 06/28/24 09:27 Respiratory Rate 16 06/28/24 09:27 Blood Pressure 158/81 H 06/28/24 09:27 Pulse Oximetry 96 06/28/24 09:27 Oxygen Delivery Method Room Air 06/28/24 09:27 <Tanja Espinal MD - Last Filed: 06/30/24 11:54> Initial Vital Signs Temperature 98.9 F 06/27/24 13:51 Temperature Source Temporal Artery Scan 06/27/24 13:51 Pulse Rate 88 06/27/24 13:51 Respiratory Rate 18 06/27/24 13:51 Blood Pressure 144/76 H 06/27/24 13:51 Blood Pressure Mean 98 06/27/24 13:51 Blood Pressure Position Sitting 06/27/24 13:51 Pulse Oximetry 95 06/27/24 13:51 Oxygen Delivery Method Room Air 06/27/24 13:51 Vital Signs Temperature 98.9 F 06/27/24 13:51 Pulse Rate 88 06/27/24 13:51 Respiratory Rate 18 06/27/24 13:51 Blood Pressure 144/76 H 06/27/24 13:51 Pulse Oximetry 95 06/27/24 13:51 Oxygen Delivery Method Room Air 06/27/24 13:51 Temperature 99.4 F 06/28/24 09:27 Pulse Rate 76 06/28/24 09:27 Respiratory Rate 16 06/28/24 09:27 Blood Pressure 158/81 H 06/28/24 09:27 Pulse Oximetry 96 06/28/24 09:27 Oxygen Delivery Method Room Air 06/28/24 09:27 <Lissa Mauro MD - Last Filed: 06/27/24 18:53> Medications Administered Medications: Discontinued Medications Generic Name Dose Route Start Last Admin Trade Name Sidney PRN Reason Stop Dose Admin Acetaminophen 1,300 mg 06/27/24 21:30 06/28/24 09:32 Acetaminophen 650 Mg Tablet Er PO Not Given Q12H CARLA Carbidopa/Levodopa 1 tab 06/28/24 09:00 06/28/24 09:31 Carbidopa-Levodopa 25-100 Tablet PO 1 tab TID CARLA Administration Cephalexin HCl 500 mg 06/28/24 09:00 06/28/24 09:32 Cephalexin 500 Mg Capsule PO 500 mg TID CARLA Administration Escitalopram Oxalate 20 mg 06/28/24 09:00 06/28/24 09:32 Escitalopram 10 Mg Tablet PO 20 mg DAILY CARLA Administration Ceftriaxone Sodium 1 gm/ 100 mls @ 200 mls/hr 06/27/24 18:41 06/27/24 20:05 Sodium Chloride IVPB 06/27/24 18:42 Infused ONCE ONE Infusion Ondansetron HCl 4 mg 06/28/24 10:14 06/28/24 10:32 Ondansetron Odt 4 Mg Tab PO 4 mg Q6H PRN Administration Sodium Chloride 5 ml 06/28/24 09:00 06/28/24 09:32 Sodium Chloride 0.9 % (Flush) 10 Ml Syringe IVF Not Given BID CARLA <Tanja Espinal MD - Last Filed: 06/30/24 11:54> Discontinued Medications Generic Name Dose Route Start Last Admin Trade Name [place] PRN Reason Stop Dose Admin Acetaminophen 1,300 mg 06/27/24 21:30 06/28/24 09:32 Acetaminophen 650 Mg Tablet Er PO Not Given Q12H CARLA Carbidopa/Levodopa 1 tab 06/28/24 09:00 06/28/24 09:31 Carbidopa-Levodopa 25-100 Tablet PO 1 tab TID CARLA Administration Cephalexin HCl 500 mg 06/28/24 09:00 06/28/24 09:32 Cephalexin 500 Mg Capsule PO 500 mg TID CARLA Administration Escitalopram Oxalate 20 mg 06/28/24 09:00 06/28/24 09:32 Escitalopram 10 Mg Tablet PO 20 mg DAILY CARLA Administration Ceftriaxone Sodium 1 gm/ 100 mls @ 200 mls/hr 06/27/24 18:41 06/27/24 20:05 Sodium Chloride IVPB 06/27/24 18:42 Infused ONCE ONE Infusion Ondansetron HCl 4 mg 06/28/24 10:14 06/28/24 10:32 Ondansetron Odt 4 Mg Tab PO 4 mg Q6H PRN Administration Sodium Chloride 5 ml 06/28/24 09:00 06/28/24 09:32 Sodium Chloride 0.9 % (Flush) 10 Ml Syringe IVF Not Given BID CARLA <Lissa Mauro MD - Last Filed: 06/27/24 18:53> Medical Decision Making Lab Data Lab results reviewed: Yes I reviewed the patient's lab results <Lissa Mauro MD - Las t Filed: 06/27/24 18:53> Labs: Lab Results 06/27/24 06/27/24 Range/Units 15:45 16:55 WBC 12.49 H (4.50-11.00) K/uL RBC 3.23 L (4.00-5.20) m/uL Hgb 8.8 L (12.0-16.0) gm/dL Hct 28.1 L (33.0-51.0) % MCV 87 (80-100) fL MCH 27 (26-34) pg MCHC 31 L (32-36) gm/dL RDW Coeff of Evaristo 16.7 H (11.5-15.5) % Plt Count 408 (140-440) K/uL Neut % (Auto) 64.0 (42.0-72.0) % Lymph % (Auto) 11.4 L (20-44) % [place] % (Auto) 22.4 H (0.0-11.0) % Eos % (Auto) 0.3 (0.0-7.0) % Baso % (Auto) 0.2 (0.0-3.0) % Neut # (Auto) 8.00 H (1.7-7.0) K/uL Lymph # (Auto) 1.40 (0.90-2.90) K/uL [place] # (Auto) 2.80 H (0.00-0.90) K/UL Eos # (Auto) 0.00 (0.00-0.50) K/uL Baso # (Auto) 0.00 (0.00-0.30) K/uL Abs Immat Gran (auto) 0.20 (0.00-0.30) K/uL Imm/Tot Granulo (auto) 1.7 % Diff Slide Review Acceptable Review (Acceptable) D-Dimer Quant (PE/DVT) 2.13 H (0.00-0.50) ug/ml Sodium 137 (135-149) mmol/L Potassium 3.8 (3.6-5.1) mmol/L Chloride 104 (96-114) mmol/L Carbon Dioxide 24 (20-32) mmol/L Anion Gap 9 (7-15) mEq/L BUN 12 (7-30) mg/dL Creatinine 0.4 L (0.5-1.5) mg/dL Estimated Creat Clear 43.07 Estimated GFR 103 ml/min Glucose 124 H (60-115) mg/dL Lactate 1.0 (0.5-1.9) mmol/L Calcium 9.1 (8.4-10.6) mg/dL Total Bilirubin 0.6 (0.1-1.5) mg/dL Direct Bilirubin 0.3 (0.0-0.5) mg/dL AST 23 (12-35) U/L ALT 5 (4-35) U/L Alkaline Phosphatase 78 (40-150) U/L C-Reactive Protein 1.1 H (0.5-1.0) mg/dL Total Protein 6.9 (6.0-8.3) g/dL Albumin 3.9 (3.3-5.0) g/dL TSH 0.388 (0.270-4.200) uIU/mL Urine Color Yellow (Yellow) Urine Appearance Cloudy A (Clear) Urine pH 6.5 (5.0-8.5) Ur Specific [place] 1.020 (1.000-1.030) Urine Protein Trace A (Negative) Urine Glucose (UA) Negative (Negative) Urine Ketones Negative (Negative) Urine Blood 1+ A (Negative) Urine Nitrite Positive A (Negative) Urine Bilirubin Negative (Negative) Urine Urobilinogen 0.2 (0.2-1.0) Ur Leukocyte Esterase 1+ A (Negative) Urine RBC 2-5 A (0-2) Urine WBC 5-10 A (0-5) Ur Squamous Epith Cells Moderate A (None-Few) Urine Bacteria Many A (None) POC Troponin I 0.02 (0.01-0.04) ng/ml <Tanja Espinal MD - Last Filed: 06/30/24 11:54> Lab Results 06/27/24 06/27/24 Range/Units 15:45 16:55 WBC 12.49 H (4.50-11.00) K/uL RBC 3.23 L (4.00-5.20) m/uL Hgb 8.8 L (12.0-16.0) gm/dL Hct 28.1 L (33.0-51.0) % MCV 87 (80-100) fL MCH 27 (26-34) pg MCHC 31 L (32-36) gm/dL RDW Coeff of Evaristo 16.7 H (11.5-15.5) % Plt Count 408 (140-440) K/uL Neut % (Auto) 64.0 (42.0-72.0) % Lymph % (Auto) 11.4 L (20-44) % [place] % (Auto) 22.4 H (0.0-11.0) % Eos % (Auto) 0.3 (0.0-7.0) % Baso % (Auto) 0.2 (0.0-3.0) % Neut # (Auto) 8.00 H (1.7-7.0) K/uL Lymph # (Auto) 1.40 (0.90-2.90) K/uL [place] # (Auto) 2.80 H (0.00-0.90) K/UL Eos # (Auto) 0.00 (0.00-0.50) K/uL Baso # (Auto) 0.00 (0.00-0.30) K/uL Abs Immat Gran (auto) 0.20 (0.00-0.30) K/uL Imm/Tot Granulo (auto) 1.7 % Diff Slide Review Acceptable Review (Acceptable) D-Dimer Quant (PE/DVT) 2.13 H (0.00-0.50) ug/ml Sodium 137 (135-149) mmol/L Potassium 3.8 (3.6-5.1) mmol/L Chloride 104 (96-114) mmol/L Carbon Dioxide 24 (20-32) mmol/L Anion Gap 9 (7-15) mEq/L BUN 12 (7-30) mg/dL Creatinine 0.4 L (0.5-1.5) mg/dL Estimated Creat Clear 43.07 Estimated GFR 103 ml/min Glucose 124 H (60-115) mg/dL Lactate 1.0 (0.5-1.9) mmol/L Calcium 9.1 (8.4-10.6) mg/dL Total Bilirubin 0.6 (0.1-1.5) mg/dL Direct Bilirubin 0.3 (0.0-0.5) mg/dL AST 23 (12-35) U/L ALT 5 (4-35) U/L Alkaline Phosphatase 78 (40-150) U/L C-Reactive Protein 1.1 H (0.5-1.0) mg/dL Total Protein 6.9 (6.0-8.3) g/dL Albumin 3.9 (3.3-5.0) g/dL TSH 0.388 (0.270-4.200) uIU/mL Urine Color Yellow (Yellow) Urine Appearance Cloudy A (Clear) Urine pH 6.5 (5.0-8.5) Ur Specific [place] 1.020 (1.000-1.030) Urine Protein Trace A (Negative) Urine Glucose (UA) Negative (Negative) Urine Ketones Negative (Negative) Urine Blood 1+ A (Negative) Urine Nitrite Positive A (Negative) Urine Bilirubin Negative (Negative) Urine Urobilinogen 0.2 (0.2-1.0) Ur Leukocyte Esterase 1+ A (Negative) Urine RBC 2-5 A (0-2) Urine WBC 5-10 A (0-5) Ur Squamous Epith Cells Moderate A (None-Few) Urine Bacteria Many A (None) POC Troponin I 0.02 (0.01-0.04) ng/ml <Lissa Mauro MD - Last Filed: 06/27/24 18:53> Imaging Data Chest x-ray: Attestation: I have reviewed the pertinent imaging results. <Lissa Mayberry MD - Last Filed: 06/27/24 18:53> Radiologist's impression: Patient: OCTAVIO ORR Facility:?[facility] Patient ID:?[id number] Site Patient ID:?[id number]. Site :?[id number] Study:?XRay-Chest Portable one view-06/27/2024 3:57:41 PM Ordering Physician:Negin Agrawal Final Report: INDICATION: Cough. TECHNIQUE: Chest 1 views. COMPARISON: None. FINDINGS: Cardiovascular and mediastinum: Heart size and vasculature are normal in caliber and appearance. Lungs and pleural spaces: Interstitial prominence. No sign of infiltrate or mass. No sign of pleural effusion. No pneumothorax. Bones and soft tissues: No significant findings. IMPRESSION: Interstitial prominence. No focal consolidations. Dictated by Rafa Garcia MD @ 06/27/2024 4:44:12 PM (Electronic Signature) <Lissa Mauro MD - Last Filed: 06/27/24 18:53> CT scan - chest: Attestation: I have reviewed the pertinent imaging results. <Lissa Mayberry MD - Last Filed: 06/27/24 18:53> Radiologist's impression: Patient: OCTAVIO ORR Facility:?[facility] Patient ID:?[id number] Site Patient ID:?[id number]. Site :?[id number] Study:?CT-Chest Angio 95CC ISOVUE 370-06/27/2024 5:10:29 PM Ordering Physician:Nuria Alcaraz Final Report: INDICATION: Weakness, increased D-dimer, recent COVID infection, recent surgery. TECHNIQUE: CT chest PE was acquired with 95 cc Isovue 370 IV contrast. COMPARISON: None. FINDINGS: Heart and vasculature: Contrast opacification of the pulmonary arterial tree is adequate. No sign of pulmonary embolism. Heart size is normal. Thoracic aorta and pulmonary artery are normal in caliber. Lungs and pleura: A 4 mm peripheral nodule in the right lower lobe series 5, image 127. A 6 mm part solid nodule anterior left upper lobe series 5, image 74. no pleural effusions, pleural thickening, or pneumothorax. Lymph nodes/mediastinum: No mediastinal, hilar, or axillary adenopathy. Chest wall: No masses. Upper abdomen: No acute or significant findings. Bones: Unremarkable for age. IMPRESSION: 1. No acute findings. 2. No pulmonary embolism or pneumonia. 3. There are 2 peripheral subcentimeter nodular lesions which are indeterminate and can be managed per Fleischner society guidelines. SOCIETY GUIDELINES - SOLID NODULES: SINGLE LOW RISK - nodule less than 6 mm: No routine follow-up. - nodule 6-8 mm: CT at 6-12 months, then consider CT at 18-24 months. - nodule greater than 8 mm: Consider CT at 3 months, PET/CT or tissue sampling. SINGLE HIGH RISK - nodule less than 6 mm: Optional CT at 12 months. - nodule 6-8 mm: CT at 6-12 months, then CT at 18-24 months. - nodule greater than 8 mm: Consider CT at 3 months, PET/CT or tissue sampling. MULTIPLE LOW RISK - nodule less than 6 mm: No routine follow-up. - nodule 6-8 mm: CT at 3-6 months, then consider CT at 18-24 months. - nodule greater than 8 mm: CT at 3-6 months, then consider CT at 18-24 months. MULTIPLE HIGH RISK - nodule less than 6 mm: Optional CT at 12 months. - nodule 6-8 mm: CT at 3-6 months, then at 18-24 months. - nodule greater than 8 mm: CT at 3-6 months, then at 18-24 months. Please note that all CT scans at this facility use dose modulation, iterative reconstruction, and/or weight-based dosing when appropriate to reduce radiation dose to as low as reasonably achievable. Dictated by Mikel Schneider MD @ 06/27/2024 6:13:27 PM (Electronic Signature) <Lissa Mauro MD - Last Filed: 06/27/24 18:53> Discharge Plan Discharge Clinical Impression: Acute UTI, Weakness <Tanja Espinal MD - Last Filed: 06/30/24 11:54> Patient Disposition: Admitted As Observation <Tanja Espinal MD - Last Filed: 06/30/24 11:54> Condition: Improved <Tanja Espinal MD - Last Filed: 06/30/24 11:54> Activity Detail: per therapy <Tanja Espinal MD - Last Filed: 06/30/24 11:54> per therapy <Lissa Mauro MD - Last Filed: 06/27/24 18:53> Discharge Diet: Regular <Tanja Espinal MD - Last Filed: 06/30/24 11:54> Regular <Lissa Mauro MD - Last Filed: 06/27/24 18:53>
[2024-06-27 15:37] VITALS: BP 146/75; PULSE 80; RESP 18; TEMP 37.3; O2SAT 97
[2024-06-27 15:54] LABS: Basophils Percent Auto 0.2 % (0.0-3.0); Eosinophils Percent Auto 0.3 % (0.0-7.0); Hematocrit 28.1 % (33.0-51.0); Hemoglobin* 8.8 gm/dL (12.0-16.0); Immature Granulocytes Pct Auto 1.7 %; Lymphocytes Percent Auto 11.4 % (20-44); Mean Corpuscular HGB Conc 31 gm/dL (32-36); Mean Corpuscular Hemoglobin 27 pg (26-34); Mean Corpuscular Volume 87 fL (80-100); Monocytes Percent Auto 22.4 % (0.0-11.0); Platelet Count* 408 K/uL (140-440); RDW Coefficient of Variation % 16.7 % (11.5-15.5); Red Blood Count 3.23 m/uL (4.00-5.20); White Blood Count* 12.49 K/uL (4.50-11.00)
[2024-06-27 16:11] LABS: Slide Review Reflex Yes
[2024-06-27 16:17] LABS: Troponin, Point-of-Care* 0.02 ng/ml (0.01-0.04)
[2024-06-27 16:19] LABS: D Dimer Quantitative* 2.13 ug/ml (0.00-0.50)
--- NOTE | 2024-06-27 16:32 | CRLHL7_ITS ---
For Patients: As a result of the 21st Century Cures Act, medical imaging exams and procedure reports are released immediately into your electronic medical record. You may view this report before your referring provider. If you have questions, please contact your health care provider. INDICATION: Weakness, increased D-dimer, recent COVID infection, recent surgery. TECHNIQUE: CT chest PE was acquired with 95 cc Isovue 370 IV contrast. COMPARISON: None. FINDINGS: Heart and vasculature: Contrast opacification of the pulmonary arterial tree is adequate. No sign of pulmonary embolism. Heart size is normal. Thoracic aorta and pulmonary artery are normal in caliber. Lungs and pleura: A 4 mm peripheral nodule in the right lower lobe series 5, image 127. A 6 mm part solid nodule anterior left upper lobe series 5, image 74. no pleural effusions, pleural thickening, or pneumothorax. Lymph nodes/mediastinum: No mediastinal, hilar, or axillary adenopathy. Chest wall: No masses. Upper abdomen: No acute or significant findings. Bones: Unremarkable for age. IMPRESSION: 1. No acute findings. 2. No pulmonary embolism or pneumonia. 3. There are 2 peripheral subcentimeter nodular lesions which are indeterminate and can be managed per Fleischner society guidelines. SOCIETY GUIDELINES - SOLID NODULES: SINGLE LOW RISK - nodule less than 6 mm: No routine follow-up. - nodule 6-8 mm: CT at 6-12 months, then consider CT at 18-24 months. - nodule greater than 8 mm: Consider CT at 3 months, PET/CT or tissue sampling. SINGLE HIGH RISK - nodule less than 6 mm: Optional CT at 12 months. - nodule 6-8 mm: CT at 6-12 months, then CT at 18-24 months. - nodule greater than 8 mm: Consider CT at 3 months, PET/CT or tissue sampling. MULTIPLE LOW RISK - nodule less than 6 mm: No routine follow-up. - nodule 6-8 mm: CT at 3-6 months, then consider CT at 18-24 months. - nodule greater than 8 mm: CT at 3-6 months, then consider CT at 18-24 months. MULTIPLE HIGH RISK - nodule less than 6 mm: Optional CT at 12 months. - nodule 6-8 mm: CT at 3-6 months, then at 18-24 months. - nodule greater than 8 mm: CT at 3-6 months, then at 18-24 months. Please note that all CT scans at this facility use dose modulation, iterative reconstruction, and/or weight-based dosing when appropriate to reduce radiation dose to as low as reasonably achievable. Dictated by Mikel Schneider MD @ 06/27/2024 6:13:27 PM (Electronically Signed)
[2024-06-27 16:42] LABS: Chloride* 104 mmol/L (96-114)
[2024-06-27 16:43] LABS: Albumin* 3.9 g/dL (3.3-5.0); Potassium* 3.8 mmol/L (3.6-5.1); Sodium* 137 mmol/L (135-149)
[2024-06-27 16:46] LABS: Alanine Aminotransferase* 5 U/L (4-35); Alkaline Phosphatase* 78 U/L (40-150); Anion Gap 9 mEq/L (7-15); Aspartate Amino Transferase* 23 U/L (12-35); Bilirubin Direct* 0.3 mg/dL (0.0-0.5); Bilirubin Total* 0.6 mg/dL (0.1-1.5); Blood Urea Nitrogen* 12 mg/dL (7-30); Carbon Dioxide* 24 mmol/L (20-32); Creatinine* 0.4 mg/dL (0.5-1.5); Est. Creatinine Clearance* 43.07; Estimated Glomerular Filt Rate 103 ml/min; Glucose* 124 mg/dL (60-115); Total Protein* 6.9 g/dL (6.0-8.3)
[2024-06-27 16:47] LABS: Calcium* 9.1 mg/dL (8.4-10.6)
[2024-06-27 16:49] LABS: C Reactive Protein* 1.1 mg/dL (0.5-1.0)
[2024-06-27 17:13] LABS: Appearance Urine Cloudy (Clear); Bilirubin Urine Negative (Negative); Blood Urine 1+ (Negative); Color Urine Yellow (Yellow); Glucose Urine Negative (Negative); Ketones Urine Negative (Negative); Leukocyte Esterase Urine 1+ (Negative); Nitrite Urine Positive (Negative); Protein Urine Trace (Negative); Urobilinogen Urine 0.2 (0.2-1.0); pH Urine 6.5 (5.0-8.5)
[2024-06-27 17:24] LABS: Bacteria Urine Many; Squamous Epithelial Cell Urine Moderate (None-Few)
[2024-06-27 17:30] VITALS: BP 175/97; PULSE 80; RESP 18; TEMP 37.2; O2SAT 96
[2024-06-27 17:55] LABS: TSH With Reflex to FT4* 0.388 uIU/mL (0.270-4.200)
[2024-06-27 18:17] LABS: Slide Review Acceptable Review (Acceptable)
[2024-06-27] MEDS: cefTRIAXone 1 GM in 0.9 % SODIUM CHLORIDE Mini-bag 100 ML IVPB (19:24)
[2024-06-27 19:29] VITALS: BP 144/80; PULSE 88; RESP 18; TEMP 37.1; O2SAT 98
[2024-06-27 20:20] VITALS: BP 151/72; PULSE 78; RESP 18; TEMP 37.1; O2SAT 95
--- NOTE | 2024-06-27 21:11 | PM.IMHP1 ---
Hospitalist- H&P: HPI History of Present Illness Date Seen: 06/27/24 Chief complaint: Covid+ over a week ago, weakness Narrative: Sumaya Galvan is a 74 year old female with recently diagnosed Parkinson's disease who presented to the ER for a few days of feeling unsteady. Recently had left shoulder surgery (here on June 15) followed by COVID infection. Still continues to have intermittent cough, otherwise no COVID symptoms. In the past couple of days, she has noted feeling more off balance, no falls. Lives with her daughter, and last night was up quite a few times to go to the bathroom. No fevers. ER course and findings: - reassuring labs with the exception of positive UA, culture pending - Tmax 99.1 Given weakness and fall risk with comorbidity of Parkinsons disease, patient admitted to the hospital. Histories updated below, Dr. Espinoza is PCP. Review of Systems Status of ROS: Reports: 10 or more systems reviewed and unremarkable except as noted in History and below [facility] Medical History (Updated 06/27/24 @ 21:25 by Becca May MD) Allergic rhinitis ?J30.9 - Allergic rhinitis, unspecified (ICD-10) Chronic bilateral low back pain with sciatica ?M54.40 - Lumbago with sciatica, unspecified side (ICD-10) ?G89.29 - Other chronic pain (ICD-10) Type 2 diabetes mellitus ?E11.9 - Type 2 diabetes mellitus without complications (ICD-10) Normocytic anemia ?D64.9 - Anemia, unspecified (ICD-10) Mild cognitive impairment ?G31.84 - Mild cognitive impairment of uncertain or unknown etiology (ICD-10) Hyperlipidemia ?E78.5 - Hyperlipidemia, unspecified (ICD-10) Anxiety ?F41.9 - Anxiety disorder, unspecified (ICD-10) B12 deficiency ?E53.8 - Deficiency of other specified B group vitamins (ICD-10) Parkinson's disease ?G20.A1 - Parkinson's disease without dyskinesia, without mention of fluctuations (ICD-10) Degenerative disc disease, lumbar ?M51.36 - Other intervertebral disc degeneration, lumbar region (ICD-10) 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 ?M48.26 - Kissing spine, lumbar region (ICD-10) Depression ?F32.A - Depression, unspecified (ICD-10) Osteoporosis ?M81.0 - Age-related osteoporosis without current pathological fracture (ICD-10) Rectocele ?N81.6 - Rectocele (ICD-10) Monocytosis ?D72.821 - Monocytosis (symptomatic) (ICD-10) History of vitamin D deficiency ?Z86.39 - Personal history of other endocrine, nutritional and metabolic disease (ICD-10) Surgical History 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 Lives with daughter October. Nonsmoker, no concerning ETOH use. Full Code status. What is your current living situation?: I presently have a place to live Problems where you live: no known problems and declined to answer Problems where you live details: na In the past 12 months, utilities in danger of being shut off: no In past 12 months, lack of transportation kept you from medical appts, meetings, work, or getting things needed for daily living: no In the past 12 mos, have been you worried that your food would run out before you had money to buy more?: never true In the past 12 mos, the food you bought just didn't last and you didn't have money to buy more?: never true Highest level of school completed/degree received: Associate degree: occupational, technical, vocational program Smoking Status: Never smoker Second hand tobacco smoke exposure: No How often do you have a drink containing alcohol: never AUDIT-C Alcohol total score: 0 Non-prescribed substance use: denies use Caffeine: Yes How often does anyone, including family, friends and others, physically hurt you: never How often does anyone, including family, friends and others, insult or talk down to you: never How often does anyone, including family, friends and others, threaten you with harm: never How often does anyone, including family, friends and others, scream or curse at you: never service: No Meds Home Medications and Allergies Home Medications ?Medication ?Instructions ?Recorded ?Confirmed ?Type alendronate 70 mg tablet 70 mg PO MO 03/10/24 06/27/24 History escitalopram oxalate 20 mg tablet 20 mg PO DAILY 03/10/24 06/27/24 History metformin 500 mg tablet,extended 2,000 mg PO HS 03/10/24 06/27/24 History release 24 hr simvastatin 20 mg tablet 20 mg PO HS 03/10/24 06/27/24 History carbidopa 25 mg-levodopa 100 mg 1 tab PO TID 05/31/24 06/27/24 History tablet iron,carbonyl 65 mg-vitamin C 125 1 tab PO DAILY 05/31/24 06/27/24 History mg tablet,delayed release (Vitron-C) Allergies Allergy/AdvReac Type Severity Reaction Status Date / Time tramadol (From Ultram) AdvReac Intermediate Nausea Verified 06/27/24 17:11 Exam Const: Vital Signs, click to edit/add: Vital Signs - 24 hr 06/27/24 13:51 06/27/24 15:37 06/27/24 17:30 Temperature 98.9 F 99.1 F 99.0 F Pulse Rate [Pulse Oximeter] 88 80 80 Respiratory Rate 18 18 18 Blood Pressure [Ri ght Arm] Blood Pressure [Ri ght Upper Arm] 144/76 H 146/75 H 175/97 H Pulse Oximetry 95 97 96 Oxygen Delivery Me thod Room Air Room Air 06/27/24 19:29 06/27/24 20:20 Temperature 98.8 F 98.8 F Pulse Rate [Pulse Oximeter] 88 78 Respiratory Rate 18 18 Blood Pressure [Ri ght Arm] 151/72 H Blood Pressure [Ri ght Upper Arm] 144/80 H Pulse Oximetry 98 95 Oxygen Delivery Me thod Room Air Room Air Hospitalist - H&P: Result Labs Labs: Short CBC 06/27/24 Range/Units 15:45 WBC 12.49 H (4.50-11.00) K/uL Hgb 8.8 L (12.0-16.0) gm/dL Hct 28.1 L (33.0-51.0) % Plt Count 408 (140-440) K/uL BMP 06/27/24 15:45 Sodium 137 Potassium 3.8 Chloride 104 Carbon Dioxide 24 BUN 12 Creatinine 0.4 L Glucose 124 H Calcium 9.1 Liver Function 06/27/24 Range/Units 15:45 Total Bilirubin 0.6 (0.1-1.5) mg/dL Direct Bilirubin 0.3 (0.0-0.5) mg/dL AST 23 (12-35) U/L ALT 5 (4-35) U/L Alkaline Phosphatase 78 (40-150) U/L Albumin 3.9 (3.3-5.0) g/dL Urine 06/27/24 Range/Units 16:55 Urine Color Yellow (Yellow) Urine Appearance Cloudy A (Clear) Urine pH 6.5 (5.0-8.5) Ur Specific [place] 1.020 (1.000-1.030) Urine Protein Trace A (Negative) Urine Glucose (UA) Negative (Negative) Assessment and Plan Assessment and plan (1) Weakness: Problem comment: - presumably related to UTI, also recently diagnosed with Parkinson's disease - therapies ordered to evaluate Status: Acute (2) Acute UTI: Problem comment: - Ceftriaxone 06/27, culture pending Status: Acute (3) Type 2 diabetes mellitus: Problem comment: - last A1C 6.1 03/2024 - on Metformin Status: Acute
--- NOTE | 2024-06-27 23:36 | PC.NURSE ---
Patient alert and oriendx4. Ambulates with Ax1 with a cane. Patient reports weakness. Denies pain. Vital signs stable. Able to communicate needs
[2024-06-27 23:47] VITALS: PULSE 78; RESP 18
[2024-06-28 02:30] VITALS: BP 147/83; PULSE 82; RESP 16; TEMP 37.2; O2SAT 96
--- NOTE | 2024-06-28 05:20 | PC.NURSE ---
Pt rested well this night. Up A2 with cane. Voiding small amounts. Oriented x3. Reporting zero pain. Afebrile.
[2024-06-28 09:27] VITALS: BP 158/81; PULSE 76; RESP 16; TEMP 37.4; O2SAT 96
[2024-06-28] MEDS: CARBIDOPA-LEVODOPA 25-100 TABLET 1 TAB PO (09:31)
[2024-06-28] MEDS: ESCITALOPRAM 10 MG TABLET 20 MG PO (09:32)
[2024-06-28] MEDS: cephALEXin 500 MG CAPSULE PO (09:32)
--- NOTE | 2024-06-28 09:48 | P.DS_ITS ---
DS: Providers Provider Date Seen: 06/28/24 Date of admission: 06/27/24 19:59 Primary care physician: Mayr Espinoza MD Admitting Clinician: Becca May MD Consults: PT and OT Attending Physician on discharge: Becca May MD Date of Discharge: 06/28/24 DS: Diagnosis Discharge Diagnosis (1) Weakness: Status: Acute Problem details: - presumably related to UTI, also recently diagnosed with Parkinson's disease - therapies consulted during stay (2) Acute UTI: Status: Acute Problem details: - Ceftriaxone 06/27, transitioned to oral Cephalexin - NGTD on culture 06/28 (3) Type 2 diabetes mellitus: Status: Acute Problem details: - last A1C 6.1 03/2024 - on Metformin DS: Summary Hospital Course Hospital Course: Sumaya is a 74-year-old female with Parkinson's disease and recent left shoulder surgery, admitted to the hospital for unsteadiness and concern for UTI. Given Ceftriaxone in the emergency room, transitioned to oral Cephalexin. Seen by therapies during stay for symptoms, home PT added to home health regimen. Comorbidities remained stable. Appropriate for d/c home with daughter on 06/28/24. Status at Discharge Functional status at discharge: uses cane/walker Overall status at discharge: patient is progressing back to baseline Time Spent with Patient Time attestation: Total time spent providing and/or coordinating discharge services: Time spent: Greater than 30 minutes Specific discharge activities: Collaboration with therapy teams, med rec/antibiotic selection, documentation, plan of care update to patient/daughter Exam Narrative: Exam Narrative: GEN: Alert and oriented, sitting comfortably in chair HEENT: EOMIs bilaterally, no scleral icterus CV: RRR, No concerning murmurs R: LCTA bilaterally Ext: L shoulder in sling, no concerning edema Skin: No concerning skin lesions or rashes on exposed skin Neuro: Nonfocal Psych: Appropriate Const: Vital Signs, click to edit/add: Vital Signs - 24 hr 06/27/24 13:51 06/27/24 15:37 06/27/24 17:30 Temperature 98.9 F 99.1 F 99.0 F Pulse Rate [Pulse Oximeter] 88 80 80 Respiratory Rate 18 18 18 Blood Pressure [Ri ght Arm] Blood Pressure [Ri ght Upper Arm] 144/76 H 146/75 H 175/97 H Pulse Oximetry 95 97 96 Oxygen Delivery Me thod Room Air Room Air 06/27/24 19:29 06/27/24 20:20 06/27/24 23:47 Temperature 98.8 F 98.8 F Pulse Rate [Pulse Oximeter] 88 78 78 Respiratory Rate 18 18 18 Blood Pressure [Ri ght Arm] 151/72 H Blood Pressure [Ri ght Upper Arm] 144/80 H Pulse Oximetry 98 95 Oxygen Delivery Me thod Room Air Room Air 06/28/24 02:30 06/28/24 09:27 06/28/24 09:27 Temperature 98.9 F 99.4 F Pulse Rate [Pulse Oximeter] 82 76 76 Respiratory Rate 16 16 16 Blood Pressure [Ri ght Arm] 147/83 H 158/81 H Blood Pressure [Ri ght Upper Arm] Pulse Oximetry 96 96 Oxygen Delivery Me thod Room Air Room Air DS: Data Data Completed and Pending Completed studies during hospitalization: Procedures Replacement of Left Shoulder Joint with Reverse Ball and Socket Synthetic Substitute, Open Approach (06/16/24) Labs on day of discharge: Labs from last 24 hours 06/27/24 06/27/24 16:55 15:45 WBC 12.49 H RBC 3.23 L Hgb 8.8 L Hct 28.1 L MCV 87 MCH 27 MCHC 31 L RDW Coeff of Evaristo 16.7 H Plt Count 408 Neut % (Auto) 64.0 Lymph % (Auto) 11.4 L [place] % (Auto) 22.4 H Eos % (Auto) 0.3 Baso % (Auto) 0.2 Neut # (Auto) 8.00 H Lymph # (Auto) 1.40 [place] # (Auto) 2.80 H Eos # (Auto) 0.00 Baso # (Auto) 0.00 Abs Immat Gran (auto) 0.20 Imm/Tot Granulo (auto) 1.7 Diff Slide Review Acceptable Review D-Dimer Quant (PE/DVT) 2.13 H Sodium 137 Potassium 3.8 Chloride 104 Carbon Dioxide 24 Anion Gap 9 BUN 12 Creatinine 0.4 L Estimated Creat Clear 43.07 Estimated GFR 103 Glucose 124 H Lactate 1.0 Calcium 9.1 Total Bilirubin 0.6 Direct Bilirubin 0.3 AST 23 ALT 5 Alkaline Phosphatase 78 C-Reactive Protein 1.1 H Total Protein 6.9 Albumin 3.9 TSH 0.388 Urine Color Yellow Urine Appearance Cloudy A Urine pH 6.5 Ur Specific [place] 1.020 Urine Protein Trace A Urine Glucose (UA) Negative Urine Ketones Negative Urine Blood 1+ A Urine Nitrite Positive A Urine Bilirubin Negative Urine Urobilinogen 0.2 Ur Leukocyte Esterase 1+ A Urine RBC 2-5 A Urine WBC 5-10 A Ur Squamous Epith Cells Moderate A Urine Bacteria Many A POC Troponin I 0.02 Preliminary micro results at discharge 06/27/24 16:55 Urine Culture - Preliminary Urine,Clean Catch Culture in Progress Discharge Plan Discharge Disposition: Home, Self-Care Date of Admission: 06/27/24 19:59 Attending Provider on Discharge: Becca May Primary Care Provider: Mary Espinoza Condition: Improved Anticipated Discharge Date/Time: 06/28/24 11:00 Discharge Medications: New cephalexin 500 mg Capsule 500 mg PO TID 4 Days Qty: 12 0RF Continued metformin 500 mg tablet extended release 24 hr 2,000 mg PO HS escitalopram oxalate 20 mg tablet 20 mg PO DAILY simvastatin 20 mg tablet 20 mg PO HS alendronate 70 mg tablet 70 mg PO MO carbidopa-levodopa 25-100 mg tablet 1 tab PO TID Vitron-C 65 mg iron- 125 mg tablet,delayed release (DR/EC) 1 tab PO DAILY losartan 100 mg tablet 100 mg PO HS Qty: 90 3RF acetaminophen 650 mg tablet extended release 1,300 mg PO Q12H Qty: 120 0RF mecobalamin (vitamin B12) [B12 Active] 1,000 mcg tablet,chewable 1,000 mcg PO DAILY Qty: 30 0RF folic acid 1 mg tablet 1 mg PO DAILY Qty: 30 0RF Discharge Orders: Discharge Order (Routine); Ordered 06/28/24 Ordered By: Becca May Patient Education: Cephalexin (By mouth), Urinary Tract Infection in Women (DC) Additional Instructions: [facility] at [facility] - see Alexis in 7-10 days for f/u. Activity Detail: per therapy Discharge Diet: Regular Follow Up Appointments: Mary Espinoza MD [Primary Care Provider] - 07/05/24 8:30 am ([facility] for follow up appointment with PCP) Forms: [employer] Info Instructions
[2024-06-28] MEDS: ONDANSETRON ODT 4 MG TAB PO (10:32)
--- NOTE | 2024-06-28 12:47 | PC.NURSE ---
Nursing Care Hours: 3420-1290 Pt this shift calm and cooperative. No c/o pain. VSS, BP slightly elevated but has not been recieving BP medications. No headache or vision changes. Mild nausea treated with oral zofran. Ambulating with Ax1. DC instructions went over with pt and daughter. IV removed. wheeled out to vehicle in stable condition.
== END 2024-06-28 11:42 | disposition home or self-care (01) ==
LOC: ED 18:53 → MEDSURG 19:59
PROVIDERS: Emergency Medicine; Admitting Provider Family Medicine; Emergency Provider Family Medicine; PCP Internal Medicine; Visit Provider Family Medicine
DX: N39.0 Urinary tract infection, site not specified (principal); R53.1 Weakness; B96.20 Unspecified Escherichia coli [E. coli] as the cause of diseases classified elsewhere; G20.A1 Parkinson's disease without dyskinesia, without mention of fluctuations; R05.9 Cough, unspecified; E11.9 Type 2 diabetes mellitus without complications; Z79.84 Long term (current) use of oral hypoglycemic drugs; I10 Essential (primary) hypertension; Z86.16 Personal history of COVID-19; Z96.612 Presence of left artificial shoulder joint
CPT/HCPCS: 36415; 71045; 71275; 80048; 80076; 81001; 83605; 84443; 84484; 85025; 85379; 86140; 87086; 87186; 93005; 96365; 97116; 97162; 97165; 97535; 99284; 99285; A9270; G0378; J0696; Q9967

== ENCOUNTER 2024-07-03 12:44 | Outpatient (CLI) | payer MEDICARE, SELFPAY | END 2024-07-03 12:45 | disposition home or self-care (01) | LOC: AMB 07-05 14:40 | PROVIDERS: PCP Internal Medicine; Visit Provider Family Medicine | DX: R53.1 Weakness (principal); R42 Dizziness and giddiness | CPT/HCPCS: A0425; A0429 ==

== ENCOUNTER 2024-07-03 13:08 | Inpatient (IN) | payer MEDICARE, SELFPAY ==
[2024-07-03] VITALS (14 sets, daily range): BP systolic 121–163; BP diastolic 57–108; PULSE 78–89; RESP 16–24; TEMP 36.7–37; O2SAT 89–95; BMI 23.8; BMI 23.1
--- NOTE | 2024-07-03 13:39 | ED_ITS ---
HPI - Weakness General Time Seen by Provider: 13:39 Date Seen: 07/03/24 Chief complaint: Weakness Stated complaint: Weakness Time Seen by Provider: 07/03/24 13:14 Source: patient, family, EMS, RN notes reviewed and old records reviewed Mode of arrival: EMS Limitations: no limitations History of Present Illness HPI Narrative: This 74-year-old female is brought in by ambulance from home where she is stain with her daughter nAca Chavez. She has had progressive weakness, requiring an assist of 2. 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 She had seen Dr. Weir at [facility] 05/29. Anca originally thought it was helping but feels like it isn't now. She has only had 1 dose this morning and her mom did have difficulty swallowing pills. They have noticed some increased dysphagia as of late, particularly for pills. Her mom has been complaining of nausea and will state that she is thrown up. There has not actually been any vomiting, Anca feels that these symptoms are consistent with her trying to clear her throat. She is doing some throat clearing when I am talking to her. She denies any hallucinations but privately Anca does tell me that there are times where her mom will be confused and probably hallucinating. One example is she was looking at her hand and thinking that were pills that were there that went missing. She had not been given any pills. There has been no fevers. She did have COVID in April, still is coughing some but cough is overall improved. She was hospitalized with a UTI overnight on June 27, October states she rebounded quite good after that but has rapidly declined again. She did have reverse arthroplasty of her left shoulder on June 15, complicated by acute delirium. Prior to her shoulder surgery, this is a patient that was being left alone at home, independent. She is now become an assist of 2. Anca unfortunately can no longer maintain this at home. After her shoulder surgery, she did come down with COVID. Did not take medicines for this, just convalesced at home. She did have negative chest CTA during her workup for the UTI recently. Related Data Home Medications ?Medication ?Instructions ?Recorded ?Confirmed alendronate 70 mg tablet 70 mg PO MO 03/10/24 06/30/24 escitalopram oxalate 20 mg tablet 20 mg PO DAILY 09/05/24 12/26/24 metformin 500 mg tablet,extended 2,000 mg PO HS 03/10/24 06/30/24 release 24 hr simvastatin 20 mg tablet 20 mg PO HS 03/10/24 06/30/24 carbidopa 25 mg-levodopa 100 mg 1 tab PO TID 05/31/24 06/30/24 tablet iron,carbonyl 65 mg-vitamin C 125 1 tab PO DAILY 05/31/24 06/30/24 mg tablet,delayed release (Vitron-C) albuterol sulfate 90 mcg/actuation inhalation 06/30/24 06/30/24 aerosol inhaler Previous Rx's ?Medication ?Instructions ?Recorded acetaminophen 650 mg 1,300 mg (2 x 650 mg) PO Q12H #120 03/17/24 tablet,extended release tabs folic acid 1 mg tablet 1 mg PO DAILY #30 tabs 03/17/24 mecobalamin (vitamin B12) 1,000 1,000 mcg PO DAILY #30 tabs 03/17/24 mcg chewable tablet (B12 Active) losartan 100 mg tablet 100 mg PO HS #90 tabs 05/31/24 cephalexin 500 mg capsule 500 mg PO TID 4 days #12 caps 06/28/24 ondansetron 4 mg disintegrating 4 mg PO TID-QID PRN nausea and 06/30/24 tablet vomiting #30 tabs solifenacin 5 mg tablet (Vesicare) 5 mg PO QDAY #30 tabs 06/30/24 Allergies Allergy/AdvReac Type Severity Reaction Status Date / Time tramadol (From Ultram) AdvReac Intermediate Nausea Verified 07/03/24 18:37 Review of Systems Status of ROS: Reports: 6 or more systems reviewed and unremarkable except as noted in History and below [facility] Medical History (Updated 07/03/24 @ 22:21 by Lissa Mauro MD) Allergic rhinitis ?J30.9 - Allergic rhinitis, unspecified (ICD-10) B12 deficiency ?E53.8 - Deficiency of other specified B group vitamins (ICD-10) Degenerative disc disease, lumbar ?M51.36 - Other intervertebral disc degeneration, lumbar region (ICD-10) 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 ?M48.26 - Kissing spine, lumbar region (ICD-10) Depression ?F32.A - Depression, unspecified (ICD-10) Osteoporosis ?M81.0 - Age-related osteoporosis without current pathological fracture (ICD- 10) Rectocele ?N81.6 - Rectocele (ICD-10) History of vitamin D deficiency ?Z86.39 - Personal history of other endocrine, nutritional and metabolic disease (ICD-10) Surgical History (Updated 07/03/24 @ 16:42 by Tessie Griffith MD) 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 Lives with daughter October. Nonsmoker, no concerning ETOH use. Full Code status. What is your current living situation?: I presently have a place to live Problems where you live: no known problems Problems where you live details: none In the past 12 months, utilities in danger of being shut off: no In past 12 months, lack of transportation kept you from medical appts, meetings, work, or getting things needed for daily living: no In the past 12 mos, have been you worried that your food would run out before you had money to buy more?: never true In the past 12 mos, the food you bought just didn't last and you didn't have money to buy more?: never true Highest level of school completed/degree received: Associate degree: occupational, technical, vocational program Smoking Status: Never smoker Second hand tobacco smoke exposure: No How often do you have a drink containing alcohol: never AUDIT-C Alcohol total score: 0 Non-prescribed substance use: denies use Caffeine: Yes How often does anyone, including family, friends and others, physically hurt you : never How often does anyone, including family, friends and others, insult or talk down to you: never How often does anyone, including family, friends and others, threaten you with harm: never How often does anyone, including family, friends and others, scream or curse at you: never service: No Exam Const: Vital Signs, click to edit/add: Vital Signs - 24 hr 07/03/24 13:10 07/03/24 13:21 07/03/24 13:23 Temperature 98.6 F Pulse Rate 83 Pulse Rate [Pulse Oximeter] Pulse Rate [Right Femoral] 86 Respiratory Rate 24 Blood Pressure Blood Pressure [Le ft Upper Arm] 121/57 L Blood Pressure [Ri ght Arm] Pulse Oximetry 91 94 93 Oxygen Delivery Me thod Room Air 07/03/24 13:24 07/03/24 13:30 07/03/24 13:32 Temperature Pulse Rate 82 84 84 Pulse Rate [Pulse Oximeter] Pulse Rate [Right Femoral] Respiratory Rate Blood Pressure 163/73 H 155/70 H Blood Pressure [Le ft Upper Arm] Blood Pressure [Ri ght Arm] Pulse Oximetry 94 94 95 Oxygen Delivery Me thod 07/03/24 14:01 07/03/24 14:02 07/03/24 14:30 Temperature Pulse Rate 83 82 83 Pulse Rate [Pulse Oximeter] Pulse Rate [Right Femoral] Respiratory Rate Blood Pressure 160/62 H Blood Pressure [Le ft Upper Arm] Blood Pressure [Ri ght Arm] Pulse Oximetry 91 93 92 Oxygen Delivery Me thod 07/03/24 14:32 07/03/24 16:33 Temperature 98.2 F Pulse Rate 83 Pulse Rate [Pulse Oximeter] 89 Pulse Rate [Right Femoral] Respiratory Rate 24 Blood Pressure 150/108 H Blood Pressure [Le ft Upper Arm] Blood Pressure [Ri ght Arm] 125/59 L Pulse Oximetry 89 93 Oxygen Delivery Me thod Room Air Sumaya is a 74-year-old female that is lying in the bed in exam room 6. She is doing some throat clearing, speech overall seems to be normal. Sclera clear, conjugate gaze, symmetrical facial function. Neck supple, no jugular venous distension. She is able to roll to her sides, lung bases are clear, no wheeze or crackles, no tachypnea. CV regular rate and rhythm, no murmur, normal S1-S2, no S3-S4. Abdomen is soft, nontender, nondistended, do not feel any organomegaly or masses. She has no lower extremity edema. She can lift each leg off the bed, dorsiflexion plantar flexion are about 3/5 but symmetric. Do not get rigidity about the ankles. She has cogwheeling rigidity of both arms at the elbows. There is some fine resting tremor noted at times. 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 The wound over her left anterior shoulder is well healed, no evidence of infection. Documenting provider has reviewed patient's vital signs: yes Course Course ED Course: October in I reviewed her MRI imaging of her head, cervical spine, lumbar spine from earlier this fall. There is no new head trauma, do not think new neuro imaging is indicated. 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 She did have a recent UTI, will check full complement of labs including urine. Will do a screening chest x-ray, complete triple viral swab again. Follow this is showing stability, will consider trying to talk to Neurology about this patient. Likely observation admission to our hospital for placement. Reevaluation(s) Time of Reevaluation #1: 15:09 Reevaluation #1: The hospitalist Dr. Griffith is down here, we have discussed this patient. She did briefly talk to October and her mom as well. The COVID PCR is still positive. Patient had a home positive COVID test on June 21. Her cough has steadily improved. We did add on a COVID antigen. It is possible that the COVID PCR is still positive from her illness. Vital Signs Vital signs: Initial Vital Signs Temperature 98.6 F 07/03/24 13:10 Temperature Source Temporal Artery Scan 07/03/24 13:10 Pulse Rate 86 07/03/24 13:10 Pulse Rhythm Regular 07/03/24 13:10 Respiratory Rate 24 07/03/24 13:10 Blood Pressure 121/57 L 07/03/24 13:10 Blood Pressure Mean 78 07/03/24 13:10 Blood Pressure Position Supine 07/03/24 13:10 Pulse Oximetry 91 07/03/24 13:10 Oxygen Delivery Method Room Air 07/03/24 13:10 Vital Signs Temperature 98.6 F 07/03/24 13:10 Pulse Rate 86 07/03/24 13:10 Respiratory Rate 24 07/03/24 13:10 Blood Pressure 121/57 L 07/03/24 13:10 Pulse Oximetry 91 07/03/24 13:10 Oxygen Delivery Method Room Air 07/03/24 13:10 Temperature 98.2 F 07/03/24 16:33 Pulse Rate 89 07/03/24 16:33 Respiratory Rate 24 07/03/24 17:26 Blood Pressure 125/59 L 07/03/24 16:33 Pulse Oximetry 93 07/03/24 17:26 Oxygen Delivery Method Room Air 07/03/24 17:26 Medications Administered Medications: Generic Name Dose Route Start Last Admin Trade Name Sidney PRN Reason Stop Dose Admin Acetaminophen 1,300 mg 07/03/24 18:00 07/03/24 18:08 Acetaminophen 650 Mg Tablet Er PO 1,300 mg Q12H CARLA Administration Carbidopa/Levodopa 1 tab 07/03/24 17:45 07/03/24 22:11 Carbidopa-Levodopa 25-100 Tablet PO 1 tab QID CARLA Administration Enoxaparin Sodium 40 mg 07/03/24 21:00 07/03/24 22:11 Enoxaparin 40 Mg/0.4 Ml Inj SUBCUT 40 mg HS CARLA Administration Losartan Potassium 100 mg 07/03/24 21:00 07/03/24 22:10 Losartan Potassium 50 Mg Tablet PO 100 mg HS CARLA Administration Simvastatin 20 mg 07/03/24 21:00 07/03/24 22:10 Simvastatin 20 Mg Tablet PO 20 mg HS CARLA Administration Sodium Chloride 5 ml 07/03/24 21:00 07/03/24 22:10 Sodium Chloride 0.9 % (Flush) 10 Ml Syringe IVF 5 ml BID CARLA Administration Discontinued Medications Generic Name Dose Route Start Last Admin Trade Name Sidney PRN Reason Stop Dose Admin Sodium Chloride 500 mls @ 500 mls/hr 07/03/24 17:28 07/03/24 21:51 0.9 % Sodium Chloride 500 Ml IV 07/03/24 18:27 Infused .Q1H ONE Infusion MDM - Weakness Lab Data Attestation: I reviewed the patient's lab results. Labs: Lab Results 07/03/24 07/03/24 07/03/24 Range/Units 13:22 14:00 15:05 WBC 20.97 H (4.50-11.00) K/uL RBC 3.58 L (4.00-5.20) m/uL Hgb 9.7 L (12.0-16.0) gm/dL Hct 30.1 L (33.0-51.0) % MCV 84 (80-100) fL MCH 27 (26-34) pg MCHC 32 (32-36) gm/dL RDW Coeff of Evaristo 16.3 H (11.5-15.5) % Plt Count 407 (140-440) K/uL Neut % (Auto) 49.0 (42.0-72.0) % Lymph % (Auto) 6.1 L (20-44) % [place] % (Auto) 44.1 H (0.0-11.0) % Eos % (Auto) 0.0 (0.0-7.0) % Baso % (Auto) 0.1 (0.0-3.0) % Neut # (Auto) 10.30 H (1.7-7.0) K/uL Lymph # (Auto) 1.30 (0.90-2.90) K/uL [place] # (Auto) 9.20 H (0.00-0.90) K/UL Eos # (Auto) 0.00 (0.00-0.50) K/uL Baso # (Auto) 0.00 (0.00-0.30) K/uL Abs Immat Gran (auto) 0.10 (0.00-0.30) K/uL Imm/Tot Granulo (auto) 0.7 % Diff Slide Review Acceptable Review (Acceptable) ESR 52 H (2-20) mm/hr Sodium 131 L (135-149) mmol/L Potassium 3.6 (3.6-5.1) mmol/L Chloride 96 (96-114) mmol/L Carbon Dioxide 26 (20-32) mmol/L Anion Gap 9 (7-15) mEq/L BUN 26 (7-30) mg/dL Creatinine 0.4 L (0.5-1.5) mg/dL Estimated Creat Clear 43.07 Estimated GFR 103 ml/min Glucose 145 H (60-115) mg/dL Lactate 0.9 (0.5-1.9) mmol/L Calcium 8.8 (8.4-10.6) mg/dL Total Bilirubin 1.2 (0.1-1.5) mg/dL AST 23 (12-35) U/L ALT 6 (4-35) U/L Alkaline Phosphatase 90 (40-150) U/L Troponin I 0.01 (0.01-0.04) ng/mL C-Reactive Protein 3.0 H (0.5-1.0) mg/dL NT-Pro-B Natriuret Pep 430 pg/mL Total Protein 7.1 (6.0-8.3) g/dL Albumin 4.1 (3.3-5.0) g/dL Procalcitonin 0.07 (<0.50) ng/mL Urine Color (Yellow) Urine Appearance (Clear) Urine pH (5.0-8.5) Ur Specific [place] (1.000-1.030) Urine Protein (Negative) Urine Glucose (UA) (Negative) Urine Ketones (Negative) Urine Blood (Negative) Urine Nitrite (Negative) Urine Bilirubin (Negative) Urine Urobilinogen (0.2-1.0) Ur Leukocyte Esterase (Negative) Urine RBC (0-2) Urine WBC (0-5) Ur Squamous Epith Cells (None-Few) Amorphous Sediment (None) Other Sediment (None) Urine Bacteria (None) Coarse Granular Casts (None) SARS-CoV-2 (PCR) POSITIVE SARS-CoV-2 A (Negative) Influenza Type A (PCR) Negative PCR FLU A (Negative) Influenza Type B (PCR) Negative PCR FLU B (Negative) RSV (PCR) Negative PCR RSV (Negative) SARS-CoV-2 Ag (Rapid) (Negative) Lab Acknowledgement New Spec Needed 07/03/24 07/03/24 Range/Units 15:20 15:36 WBC (4.50-11.00) K/uL RBC (4.00-5.20) m/uL Hgb (12.0-16.0) gm/dL Hct (33.0-51.0) % MCV (80-100) fL MCH (26-34) pg MCHC (32-36) gm/dL RDW Coeff of Evaristo (11.5-15.5) % Plt Count (140-440) K/uL Neut % (Auto) (42.0-72.0) % Lymph % (Auto) (20-44) % [place] % (Auto) (0.0-11.0) % Eos % (Auto) (0.0-7.0) % Baso % (Auto) (0.0-3.0) % Neut # (Auto) (1.7-7.0) K/uL Lymph # (Auto) (0.90-2.90) K/uL [place] # (Auto) (0.00-0.90) K/UL Eos # (Auto) (0.00-0.50) K/uL Baso # (Auto) (0.00-0.30) K/uL Abs Immat Gran (auto) (0.00-0.30) K/uL Imm/Tot Granulo (auto) % Diff Slide Review (Acceptable) ESR (2-20) mm/hr Sodium (135-149) mmol/L Potassium (3.6-5.1) mmol/L Chloride (96-114) mmol/L Carbon Dioxide (20-32) mmol/L Anion Gap (7-15) mEq/L BUN (7-30) mg/dL Creatinine (0.5-1.5) mg/dL Estimated Creat Clear Estimated GFR ml/min Glucose (60-115) mg/dL Lactate (0.5-1.9) mmol/L Calcium (8.4-10.6) mg/dL Total Bilirubin (0.1-1.5) mg/dL AST (12-35) U/L ALT (4-35) U/L Alkaline Phosphatase (40-150) U/L Troponin I (0.01-0.04) ng/mL C-Reactive Protein (0.5-1.0) mg/dL NT-Pro-B Natriuret Pep pg/mL Total Protein (6.0-8.3) g/dL Albumin (3.3-5.0) g/dL Procalcitonin (<0.50) ng/mL Urine Color Yellow (Yellow) Urine Appearance Clear (Clear) Urine pH 7.0 (5.0-8.5) Ur Specific [place] 1.020 (1.000-1.030) Urine Protein 1+ A (Negative) Urine Glucose (UA) Negative (Negative) Urine Ketones Negative (Negative) Urine Blood Trace-intact A (Negative) Urine Nitrite Negative (Negative) Urine Bilirubin Negative (Negative) Urine Urobilinogen 1.0 (0.2-1.0) Ur Leukocyte Esterase Negative (Negative) Urine RBC 5-10 A (0-2) Urine WBC 0-2 (0-5) Ur Squamous Epith Cells Many A (None-Few) Amorphous Sediment Few A (None) Other Sediment Few A (None) Urine Bacteria Few A (None) Coarse Granular Casts Few A (None) SARS-CoV-2 (PCR) (Negative) Influenza Type A (PCR) (Negative) Influenza Type B (PCR) (Negative) RSV (PCR) (Negative) SARS-CoV-2 Ag (Rapid) Negative (Negative) Lab Acknowledgement ECG Data Attestation: I personally reviewed and interpreted this ECG as follows: (Normal sinus rhythm, 5th T-waves anterior precordial leads without definitive ST segment change.) ECG interpretation date: 07/03/24 ECG interpretation time: 13:39 Prior ECG tracings: available for review (Does not appear to be significantly changed from EKG dated 06/27/2024) Discharge Plan Discharge Clinical Impression: Weakness Difficulty in swallowing Qualifiers: Dysphagia type: unspecified Qualified Code(s): R13.10 - Dysphagia, unspecified Patient Disposition: Admitted As Observation
--- NOTE | 2024-07-03 13:50 | CRLHL7_ITS ---
For Patients: As a result of the Century Cures Act, medical imaging exams and procedure reports are released immediately into your electronic medical record. You may view this report before your referring provider. If you have questions, please contact your health care provider. INDICATION: Cough. TECHNIQUE: Chest radiograph, 1 view. COMPARISON: CTA chest 06/27/2024. Chest radiograph 06/27/2024. FINDINGS: Cardiovascular/Mediastinum: Normal heart size. Unremarkable. Lungs: No focal consolidation. Linear band like opacification of the lungs bilaterally, likely subsegmental atelectasis and/or scarring. Airways: Trachea remains midline. Pleura: No pleural effusions or pneumothorax. Bones: No acute osseous abnormalities. Reverse left shoulder arthroplasty. Upper abdomen: Unremarkable. IMPRESSION: No acute cardiopulmonary process. Stable examination. Dictated by Alcon Betts MD @ 07/03/2024 2:38:42 PM (Electronically Signed)
[2024-07-03 14:07] LABS: Lactate* 0.9 mmol/L (0.5-1.9)
[2024-07-03 14:09] LABS: Basophils Percent Auto 0.1 % (0.0-3.0); Hematocrit 30.1 % (33.0-51.0); Hemoglobin* 9.7 gm/dL (12.0-16.0); Immature Granulocytes Pct Auto 0.7 %; Lymphocytes Percent Auto 6.1 % (20-44); Mean Corpuscular HGB Conc 32 gm/dL (32-36); Mean Corpuscular Hemoglobin 27 pg (26-34); Mean Corpuscular Volume 84 fL (80-100); Monocytes Percent Auto 44.1 % (0.0-11.0); Platelet Count* 407 K/uL (140-440); RDW Coefficient of Variation % 16.3 % (11.5-15.5); Red Blood Count 3.58 m/uL (4.00-5.20); White Blood Count* 20.97 K/uL (4.50-11.00)
[2024-07-03 14:10] LABS: Slide Review Reflex Yes
[2024-07-03 14:24] LABS: Chloride* 96 mmol/L (96-114)
[2024-07-03 14:25] LABS: Albumin* 4.1 g/dL (3.3-5.0); Potassium* 3.6 mmol/L (3.6-5.1); Sodium* 131 mmol/L (135-149)
[2024-07-03 14:27] LABS: Creatinine* 0.4 mg/dL (0.5-1.5); Est. Creatinine Clearance* 43.07; Estimated Glomerular Filt Rate 103 ml/min
[2024-07-03 14:28] LABS: Alanine Aminotransferase* 6 U/L (4-35); Alkaline Phosphatase* 90 U/L (40-150); Anion Gap 9 mEq/L (7-15); Aspartate Amino Transferase* 23 U/L (12-35); Bilirubin Total* 1.2 mg/dL (0.1-1.5); Blood Urea Nitrogen* 26 mg/dL (7-30); Calcium* 8.8 mg/dL (8.4-10.6); Carbon Dioxide* 26 mmol/L (20-32); Glucose* 145 mg/dL (60-115); Total Protein* 7.1 g/dL (6.0-8.3)
[2024-07-03 14:40] LABS: Troponin I* 0.01 ng/mL (0.01-0.04)
[2024-07-03 14:42] LABS: NT Pro B Type NatriureticPept* 430 pg/mL
[2024-07-03 14:45] LABS: Procalcitonin* 0.07 ng/mL (<0.50)
[2024-07-03 14:48] LABS: Erythrocyte SedimentationRate* 52 mm/hr (2-20)
[2024-07-03 14:50] LABS: Slide Review Acceptable Review (Acceptable)
[2024-07-03 14:53] LABS: PCR FLU A Negative PCR FLU A (Negative); PCR FLU B Negative PCR FLU B (Negative); PCR RSV Negative PCR RSV (Negative); SARS PCR* POSITIVE SARS-CoV-2 (Negative)
--- NOTE | 2024-07-03 15:22 | ED.NURSE ---
Patient requesting to go to the bathroom- nurse able to put patient on bedpan. Patient then stated she did not have to go. Will reevaluate shortly.
[2024-07-03 15:49] LABS: Appearance Urine Clear (Clear); Bilirubin Urine Negative (Negative); Blood Urine Trace-intact (Negative); Color Urine Yellow (Yellow); Glucose Urine Negative (Negative); Ketones Urine Negative (Negative); Leukocyte Esterase Urine Negative (Negative); Nitrite Urine Negative (Negative); Protein Urine 1+ (Negative)
[2024-07-03 15:57] LABS: Lab Add On Test New Spec Needed
[2024-07-03 15:57] LABS: SARS Antigen* Negative (Negative)
[2024-07-03 16:17] LABS: Bacteria Urine Few; Squamous Epithelial Cell Urine Many (None-Few); WBC Urine 0-2 (0-5)
[2024-07-03 16:18] LABS: Amorphous Sediment Urine Few; Other Sediment Urine Few
[2024-07-03 16:19] LABS: Coarse Granular Casts Urine Few
--- NOTE | 2024-07-03 16:39 | PM.IMHP1 ---
Hospitalist- H&P: HPI History of Present Illness Date Seen: 07/03/24 Chief complaint: Weakness Narrative: ADMISSION HISTORY AND PHYSICAL - HOSPITALIST Chief Complaint: weakness with motor changes in upper extremities; trouble swallowing; recent Covid and UTI. recent shoulder replacement. HPI: Sumaya is a 74-year-old who has had a rough few months. She was 1st on our service in March after she sustained 2 falls. One injured her left shoulder and the 2nd injured her low back and neck and head.. She had some nonspecific neurologic changes at that time, for example weakness in her lower extremities, some cogwheel rigidity, mild tremor, cuing needed, and we had a neuro consult. Most of her workup was reassuring. We wondered if this was the start of Parkinson's. Or at a minimum a parkinsonian syndrome. She did see neuro as an outpatient at [facility] and was started on Sinemet. Neither the patient or her daughter Anca, feel like it has done much. However from a neuro standpoint her gait had improved. She underwent a shoulder reverse arthroplasty just 3 weeks ago. She had some mild post operative delirium, this also resolved nearly completely. Shortly after her surgery she was walking with a cane and did not need opioids. Then right before she was admitted with recent COVID and a UTI. Again she seemed to rally for a few days and then over the last 24 hours she has again regressed and is weak and having neuro changes. Her daughter Anca, whom she has lived with since March's admission, stated that she seemed quite confused and her weakness progressed to the point of not even being able to get her out of bed this morning. She also states that she is holding water in her mouth and having a delayed swallow mechanism. She is also keeping food in the cheeks and not initiating swallow. ER COURSE: Labs, chest x-ray - no head CT was done. Her PCR for COVID was positive and UA had not been obtaining but UTI was high on the list and this was felt to explain her symptoms. However her UA was clear and her covid antigen is negative and her date of symptoms has been greater than 10 days. CODE STATUS: FULL CODE EMERGENCY CONTACT PLAN: October Rel To Pat Daughter Cell I've updated the PFSH, medications and allergies in the Expanse tabs. INVESTIGATIONS: LABS/MICRO/ECG/IMAGING Afebrile Hypertensive 160/62 150/108 Pulse in the 80s Respiratory rate 24 Pulse ox 93% on room air 63 [place] [address]. Previously up to 19,000 in June when admitted for a total shoulder. She also had delirium at that time. Her anemia is better than when she was in for surgeries at 9.7 a previously had been in the eights. Monocytosis present AND WORSE. ESR 52. D-dimer 2.13 Sodium down to [address] abdomen and pelvis IMPRESSION: 1. No acute findings within the abdomen and pelvis. 2. Diverticulosis without evidence of diverticulitis. CXR IMPRESSION: No acute cardiopulmonary process. Stable examination. -reviewed CTA from 6 days ago brain mri 03/16/24 IMPRESSION: 1. No acute intracranial abnormality. 2. Mild to moderate diffuse cerebral volume loss and mild chronic microvascular ischemic changes. REVIEW OF SYSTEMS: 12-point ROS completed with patient and negative unless otherwise stated in HPI or below. PHYSICAL EXAM: CONSTITUTIONAL: She speaking in short sentences and seems to make sense. She does stall out sometimes after a question and she can tell me that she forgets what the question is. GENERAL: Well-developed and at ideal body weight, in no respiratory distress. VITAL SIGNS: see record. HEENT: Sclerae are anicteric. No petechiae. CARDIAC: rhythm is regular. There is no S3 or rub. No harsh murmurs. Extremities show trace edema with symmetrical pulses. PULM: good air entry with no wheeze. NEURO: Speech is fluent but her response at times is delayed. She is having upper extremity motor control loss of her arms and dexterity of her dominant hand. She is showing signs of neglect. SKIN: No rashes, petechiae, concerning changes PSYCHIATRIC: Euthymic. ADMIT TO MEDSURG: FLOOR CARE DVT: Lovenox GI: PO intake Time spent: Today I spent 75 minutes seeing the patient, discussing the patient with ER staff, reviewing Expanse and EPIC notes/diagnostics, discussing the care plan with our care time that includes social work, PT/OT, pharmacy, RT, custodial and documenting my impressions and plan in the medical record. MEDICAL NECESSITY FOR HOSPITALIZATION Anticipated midnights in the hospital: at least 2 Admitting diagnosis: progressive neurological disorder NOS Risk of morbidity and mortality: high Acuity is characterized as high and reflected in: Severity of presentation, fluctuating symptoms, neglect/weakness without a unifying diagnosis, recent COVID and UTI admission, recent shoulder replacement and advanced age all increase her risk of morbidity and mortality. This patient will require hospital services as outlined in the assessment and plan in order to stabilize and be safely discharged to a lower level of care. Because of the risk and acuity as described above, this patient cannot be managed at a lower level of care. LENGTH OF STAY: 2 IP ? 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 - Kissing spine, lumbar region (ICD-10) Depression ?F32.A - Depression, unspecified (ICD-10) Osteoporosis ?M81.0 - Age-related osteoporosis without current pathological fracture (ICD-10) Rectocele ?N81.6 - Rectocele (ICD-10) History of vitamin D deficiency ?Z86.39 - Personal history of other endocrine, nutritional and metabolic disease (ICD-10) Surgical History (Updated 07/03/24 @ 16:42 by Tessie Griffith MD) 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 Lives with daughter October. Nonsmoker, no concerning ETOH use. Full Code status. What is your current living situation?: I presently have a place to live Problems where you live: no known problems Problems where you live details: none In the past 12 months, utilities in danger of being shut off: no In past 12 months, lack of transportation kept you from medical appts, meetings, work, or getting things needed for daily living: no In the past 12 mos, have been you worried that your food would run out before you had money to buy more?: never true In the past 12 mos, the food you bought just didn't last and you didn't have money to buy more?: never true Highest level of school completed/degree received: Associate degree: occupational, technical, vocational program Smoking Status: Never smoker Second hand tobacco smoke exposure: No How often do you have a drink containing alcohol: never AUDIT-C Alcohol total score: 0 Non-prescribed substance use: denies use Caffeine: Yes How often does anyone, including family, friends and others, physically hurt you: never How often does anyone, including family, friends and others, insult or talk down to you: never How often does anyone, including family, friends and others, threaten you with harm: never How often does anyone, including family, friends and others, scream or curse at you: never service: No Meds Home Medications and Allergies Home Medications ?Medication ?Instructions ?Recorded ?Confirmed ?Type alendronate 70 mg tablet 70 mg PO MO 03/10/24 06/30/24 History escitalopram oxalate 20 mg tablet 20 mg PO DAILY 03/10/24 06/30/24 History metformin 500 mg tablet,extended 2,000 mg PO HS 03/10/24 06/30/24 History release 24 hr simvastatin 20 mg tablet 20 mg PO HS 03/10/24 06/30/24 History carbidopa 25 mg-levodopa 100 mg 1 tab PO TID 05/31/24 06/30/24 History tablet iron,carbonyl 65 mg-vitamin C 125 1 tab PO DAILY 05/31/24 06/30/24 History mg tablet,delayed release (Vitron-C) albuterol sulfate 90 mcg/actuation inhalation 06/30/24 06/30/24 History aerosol inhaler Allergies Allergy/AdvReac Type Severity Reaction Status Date / Time tramadol (From Ultram) AdvReac Intermediate Nausea Verified 07/03/24 18:37 Exam Const: Vital Signs, click to edit/add: Vital Signs - 24 hr 07/03/24 13:10 07/03/24 13:21 07/03/24 13:23 Temperature 98.6 F Pulse Rate 83 Pulse Rate [Right Femoral] 86 Respiratory Rate 24 Blood Pressure Blood Pressure [Le ft Upper Arm] 121/57 L Pulse Oximetry 91 94 93 Oxygen Delivery Me thod Room Air 07/03/24 13:24 07/03/24 13:30 07/03/24 13:32 Temperature Pulse Rate 82 84 84 Pulse Rate [Right Femoral] Respiratory Rate Blood Pressure 163/73 H 155/70 H Blood Pressure [Le ft Upper Arm] Pulse Oximetry 94 94 95 Oxygen Delivery Me thod 07/03/24 14:01 07/03/24 14:02 07/03/24 14:30 Temperature Pulse Rate 83 82 83 Pulse Rate [Right Femoral] Respiratory Rate Blood Pressure 160/62 H Blood Pressure [Le ft Upper Arm] Pulse Oximetry 91 93 92 Oxygen Delivery Me thod 07/03/24 14:32 Temperature Pulse Rate 83 Pulse Rate [Right Femoral] Respiratory Rate Blood Pressure 150/108 H Blood Pressure [Le ft Upper Arm] Pulse Oximetry 89 Oxygen Delivery Me thod Hospitalist - H&P: Result Labs Labs: Short CBC 07/03/24 Range/Units 14:00 WBC 20.97 H (4.50-11.00) K/uL Hgb 9.7 L (12.0-16.0) gm/dL Hct 30.1 L (33.0-51.0) % Plt Count 407 (140-440) K/uL BMP 07/03/24 14:00 Sodium 131 L Potassium 3.6 Chloride 96 Carbon Dioxide 26 BUN 26 Creatinine 0.4 L Glucose 145 H Calcium 8.8 Cardiac Enzymes 07/03/24 Range/Units 14:00 Troponin I 0.01 (0.01-0.04) ng/mL Liver Function 07/03/24 Range/Units 14:00 Total Bilirubin 1.2 (0.1-1.5) mg/dL AST 23 (12-35) U/L ALT 6 (4-35) U/L Alkaline Phosphatase 90 (40-150) U/L Albumin 4.1 (3.3-5.0) g/dL Urine 07/03/24 Range/Units 15:36 Urine Color Yellow (Yellow) Urine Appearance Clear (Clear) Urine pH 7.0 (5.0-8.5) Ur Specific [place]bon 1.020 (1.000-1.030) Urine Protein 1+ A (Negative) Urine Glucose (UA) Negative (Negative) Assessment and Plan Assessment and plan (1) Weakness: Problem comment: - ddx: UTI - UA looks reassuring, Covid related (relapse vs long covid), worsening neurodegenerative process - Parkinson's vs NOS. Status: Acute (2) Neuro-degenerative disorders: Problem comment: -all Parkinson's? I've ordered tele-neuro -I've ordered head CT and MRI of brain -speech eval -abd/pelvis was negative (what to make of the elevated WBC?) Status: Acute (3) Parkinson's disease: Problem comment: saw [facility] 05/29 (Sinemet trial started then) -increased to QID on admission 07/03 Status: Acute (4) COVID: Problem comment: start of symptoms was around the 21 of June. No specific drug treatment. admitted on 06/27 for UTI. Covid PCR still positive but antigen neg on admission 07/03. No specific treatment or barrier indicated. Status: Acute (5) Type 2 diabetes mellitus: Problem comment: on Metformin (on hold) -- bedside glucose monitoring; SSI Status: Acute (6) Difficulty in swallowing: Problem comment: -bedside swallow with RN; speech eval and barium swallow ordered. Status: Acute (7) Mild cognitive impairment: Problem comment: Minicog 0/5 04/28 Status: Acute (8) Hypertension: Status: Acute (9) Normocytic anemia: Problem comment: peripheral smear done 04/28, probably anemia of chronic disease versus combination of B12 with iron deficiency Status: Acute (10) Monocytosis: Problem comment: Has a monocytosis of undetermined significance seen on peripheral smear, 04/28, 06/28 Status: Acute (11) Anxiety: Status: Acute (12) Hyperlipidemia: Status: Acute
--- NOTE | 2024-07-03 17:52 | CRLHL7_ITS ---
For Patients: As a result of the Century Cures Act, medical imaging exams and procedure reports are released immediately into your electronic medical record. You may view this report before your referring provider. If you have questions, please contact your health care provider. INDICATION: Altered mental status, elevated white blood cell count. TECHNIQUE: CT abdomen and pelvis acquired with 68 cc of Isovue 370 IV contrast. COMPARISON: Chest CT 06/27/2024. FINDINGS: Lower chest: Right lower lobe atelectasis. Liver: Unremarkable. Normal in size and attenuation. No suspicious masses. Gallbladder and bile ducts: Unremarkable. No stones or inflammation. No biliary dilatation. Pancreas: Unremarkable. No mass or inflammation. Spleen: Unremarkable. Normal in size. No masses. Adrenal glands: Unremarkable. No nodules. Kidneys: Unchanged calcified cyst within the left kidney. No suspicious masses, stones, or hydronephrosis. GI tract: Small hiatal hernia. Diverticulosis without pericolonic inflammation. No obstruction. Vasculature: Normal caliber abdominal aorta with mild atherosclerotic calcification. Mesenteric arteries are patent. Lymph nodes: No lymphadenopathy. Peritoneum/Abdominal Wall: Unremarkable. No free air or significant free fluid. Pelvis: Status post hysterectomy. Bones: Chronic, ununited left superior and inferior pubic rami fractures. Subacute versus chronic sacral insufficiency fractures. IMPRESSION: 1. No acute findings within the abdomen and pelvis. 2. Diverticulosis without evidence of diverticulitis. Please note that all CT scans at this facility use dose modulation, iterative reconstruction, and/or weight-based dosing when appropriate to reduce radiation dose to as low as reasonably achievable. Dictated by Arnaud Monet MD @ 07/03/2024 7:22:05 PM (Electronically Signed)
[2024-07-03] MEDS: ACETAMINOPHEN 650 MG TABLET ER 1300 MG PO (18:08)
[2024-07-03] MEDS: CARBIDOPA-LEVODOPA 25-100 TABLET 1 TAB PO ×2 (18:08→22:11)
[2024-07-03] MEDS: 0.9 % SODIUM CHLORIDE 500 ML 500 ML IV (19:05)
--- NOTE | 2024-07-03 19:52 | PC.NURSE ---
End of Shift: Patient pleasant and cooperative, oriented to self and confused on an off, arrived to the floor about 1620. Patient vitally stable, lungs with crackles, BS WNL, IV running NS bolus. Patient ceiling lift/heavy assist of 2. Patient denies pain and nausea on admission. Patient with sling on left arm and incontinent. Patient on tele. Patient has definite swallowing impairment, should be assisted when swallowing, crush big pills with apple sauce. Patient only had a few bites of dinner.
[2024-07-03] MEDS: LOSARTAN POTASSIUM 50 MG TABLET 100 MG PO (22:10)
[2024-07-03] MEDS: SIMVASTATIN 20 MG TABLET PO (22:10)
[2024-07-03] MEDS: SODIUM CHLORIDE 0.9 % (FLUSH) 10 ML SYRINGE 5 ML IVF (22:10)
[2024-07-03] MEDS: ENOXAPARIN 40 MG/0.4 ML INJ SUBCUT (22:11)
[2024-07-04] VITALS (7 sets, daily range): BP systolic 91–171; BP diastolic 56–78; PULSE 69–83; RESP 16–22; TEMP 36.4–36.8; O2SAT 93; BMI 23.5
--- NOTE | 2024-07-04 00:42 | CRLHL7_ITS ---
For Patients: As a result of the Century Cures Act, medical imaging exams and procedure reports are released immediately into your electronic medical record. You may view this report before your referring provider. If you have questions, please contact your health care provider. Indication: Altered mental status, poor motor control, neglect Technique: Noncontrast CT through the head with multiplanar reformats Comparison: MR brain performed 03/16/2024 Findings: Brain: No acute hemorrhage. No acute infarct. No significant mass effect or midline shift. No gross evidence of a mass lesion or cerebral edema. Severe chronic microvascular ischemic disease. [id number] global parenchymal volume loss. Ventricles: No acute abnormality appreciated. Orbits, sinuses, mastoids: Mild mucosal thickening and air-fluid levels noted. Calvarium and soft tissues: No acute abnormality appreciated. Impression: Suspect acute sinusitis. No acute intracranial abnormality appreciated. Please note that all CT scans at this facility use dose modulation, iterative reconstruction, and/or weight-based dosing when appropriate to reduce radiation dose to as low as reasonably achievable. Dictated by Andrea Elder MD @ 07/04/2024 1:49:54 AM (Electronically Signed)
[2024-07-04] MEDS: ACETAMINOPHEN 650 MG TABLET ER 1300 MG PO ×2 (06:51→17:28)
--- NOTE | 2024-07-04 07:39 | PC.NURSE ---
Pt alert, oriented to self and situation and vitally stable. Pt had periods of forgetfulness and confusion with time throughout shift, staff reoriented, pt tolerated. Tele read NSR with prolonged QT. Pt moves via 2a ceiling lift, tolerates well. Pt incontinent, pure wick in use, tolerates well. Left arm in sling due to prior shoulder surgery, tolerates well, denies any pain. Pt has difficulty swallowing, took pills whole and 1 at a time, tolerated ok (refused pills in apple sauce or to be crushed). Encouraged pt to take small sips, pt had minimal coughing. Pt uses call light appropriatley at times, bed alarm on and hourly checks completed. Pt appears to be resting, the call light within reach.?
--- NOTE | 2024-07-04 08:15 | CRLHL7_ITS ---
For Patients: As a result of the Cures Act, medical imaging exams and procedure reports are released immediately into your electronic medical record. You may view this report before your referring provider. If you have questions, please contact your health care provider. INDICATION: Neurodegenerative changes. TECHNIQUE: Brain MRI without contrast. COMPARISON: Head CT from 07/04/2024. brain MRI from 03/16/2024. FINDINGS: No evidence of acute ischemia. No evidence of acute or chronic intracranial blood products. Patchy FLAIR hyperintensities within the supratentorial white matter and brainstem, typical for chronic microvascular ischemic change. No mass effect or herniation. No hydrocephalus or extra-axial collections. Moderate generalized parenchymal volume loss with slightly more pronounced atrophy of the hippocampal formations. The pituitary gland, parasellar structures and optic chiasm are normal. Posterior fossa is normal. All the major intracranial vascular structures demonstrate normal flow-related signal. The orbital contents are normal. No calvarial or skull base marrow replacing process. Widespread paranasal sinus mucosal thickening and maxillary sinus retention cysts. No extracranial soft tissue findings. IMPRESSION: 1. No acute infarction or other acute intracranial pathology. 2. Mild chronic microvascular ischemic changes. 3. Moderate generalized parenchymal volume loss with slightly more pronounced atrophy of the hippocampal formations. Dictated by Oscar Vega MD @ 07/04/2024 10:02:18 AM (Electronically Signed)
[2024-07-04] MEDS: FOLIC ACID 1 MG TABLET PO (09:41)
[2024-07-04] MEDS: ESCITALOPRAM 10 MG TABLET 20 MG PO (09:41)
[2024-07-04] MEDS: CARBIDOPA-LEVODOPA 25-100 TABLET 1 TAB PO ×4 (09:41→20:26)
[2024-07-04 09:47] LABS: Basophils Percent Auto 0.2 % (0.0-3.0); Eosinophils Percent Auto 0.1 % (0.0-7.0); Hematocrit 28.9 % (33.0-51.0); Hemoglobin* 9.3 gm/dL (12.0-16.0); Immature Granulocytes Pct Auto 0.7 %; Lymphocytes Percent Auto 7.6 % (20-44); Mean Corpuscular HGB Conc 32 gm/dL (32-36); Mean Corpuscular Hemoglobin 27 pg (26-34); Mean Corpuscular Volume 84 fL (80-100); Monocytes Percent Auto 37.7 % (0.0-11.0); Neutrophils Percent Auto 53.7 % (42.0-72.0); Platelet Count* 391 K/uL (140-440); RDW Coefficient of Variation % 16.3 % (11.5-15.5); Red Blood Count 3.45 m/uL (4.00-5.20); White Blood Count* 19.62 K/uL (4.50-11.00)
[2024-07-04 09:54] LABS: Slide Review Reflex No
[2024-07-04 10:01] LABS: Albumin* 3.8 g/dL (3.3-5.0); Chloride* 98 mmol/L (96-114); Sodium* 130 mmol/L (135-149)
[2024-07-04 10:02] LABS: Potassium* 3.4 mmol/L (3.6-5.1)
[2024-07-04 10:04] LABS: Anion Gap 8 mEq/L (7-15); Aspartate Amino Transferase* 20 U/L (12-35); Carbon Dioxide* 24 mmol/L (20-32); Creatinine* 0.5 mg/dL (0.5-1.5); Est. Creatinine Clearance* 43.07; Estimated Glomerular Filt Rate 97 ml/min; Total Protein* 6.7 g/dL (6.0-8.3)
[2024-07-04 10:05] LABS: Alanine Aminotransferase* 12 U/L (4-35); Alkaline Phosphatase* 91 U/L (40-150); Blood Urea Nitrogen* 16 mg/dL (7-30); Calcium* 8.5 mg/dL (8.4-10.6); Glucose* 161 mg/dL (60-115)
--- NOTE | 2024-07-04 10:05 | REH.SLP ---
Clinical swallow evaluation completed. Full note to follow. Regular diet with thin liquids. Upright for all po, small single sips, small bites at slow rate. Meds in puree carrier followed by sip of water. When taking with water, patient takes too big a drink and then holds liquids/meds. Unable to complete video swallow this morning due to outpatient schedule.
--- NOTE | 2024-07-04 10:17 | PM.IMPN1 ---
Progress Note: A&P Assessment and plan (1) Weakness: Problem details: - ddx: UTI (recent E Coli, current UA reassuring), COVID (relapse vs long covid), worsening neurodegenerative process (Parkinsons/other), new acute neurological process - therapies following, Neurology (Dr. Maria) following - reassuring brain MRI on 07/04, MRA of head and neck ordered for follow-up Status: Acute (2) Neuro-degenerative disorders: Problem details: - Parkinson's progression vs other vs secondary diagnosis - Tele Neurology consult - reassuring brain MRI on 07/04, head and neck MRA ordered in addition to multiple labs - if any worsening clinical picture, or need for further diagnostic clarity, consider LP Status: Acute (3) Parkinson's disease: Problem details: - saw [facility] 05/29 (Sinemet trial started then) - increased to QID on 07/03/24 Status: Acute (4) Monocytosis: Problem details: - monocytosis of undetermined significance seen on peripheral smear, 04/28, 06/28 - query MDS, perhaps related to current acute illness/neurological changes - paraneoplastic panel pending Status: Acute (5) COVID: Problem details: - 06/21/24 symptom onset, did not require any COVID specific therapies at that time - currently stable on RA, asymptomatic, reassuring CXR 07/03/24 Status: Acute (6) Type 2 diabetes mellitus: Problem details: - outpatient Metformin (on hold) -- bedside glucose monitoring; SSI Status: Acute (7) Difficulty in swallowing: Problem details: - bedside swallow with RN; speech eval completed 07/04, barium swallow ordered Status: Acute (8) Normocytic anemia: Problem details: - peripheral smear done 04/28, probably anemia of chronic disease versus combination of B12 with iron deficiency Status: Acute (9) Mild cognitive impairment: Problem details: - Minicog 0/5 04/28 Status: Acute (10) Hypertension: Problem details: - continue home losartan Status: Acute (11) Anxiety: Problem details: - continue home escitalopram Status: Acute (12) Hyperlipidemia: Problem details: - continue statin Status: Acute Plan - further workup as noted above - continue therapy follow-up - continues to require inpatient level of care management for multiple comorbidities and workup of acute neurologic change - social work consult as patient will likely need TCU upon discharge - daughter October updated at bedside, questions answered Subjective Date Seen: 07/04/24 Interval history: Sumaya was admitted to the hospital last night for an acute neurologic change in the setting of known Parkinson's disease, recent UTI, recent left shoulder surgery and recent COVID infection. This morning she continues to exhibit some dysphagia, L sided neglect, and significant fatigue with any activity. Brain MRI revealed no acute infarction, mild chronic microvascular ischemic changes, moderate generalized volume loss. Dr. Maria of Stroke Neurology following. Sumaya has no pain or other concerns for hospitalist team. Exam Narrative: Exam Narrative: GEN: Alert and answering questions appropriately HEENT: EOMIs bilaterally, no scleral icterus CV: RRR, No concerning murmurs R: LCTA bilaterally without concerning wheezing Ext: wwp, no concerning edema Skin: No concerning skin lesions or rashes on exposed skin Neuro: Left-sided neglect noted, intermittent jerking movements of extremities while sleeping, + tremor at baseline Psych: Appropriate Const: Vital Signs, click to edit/add: Vital Signs - 24 hr 07/03/24 13:10 07/03/24 13:21 07/03/24 13:23 Temperature 98.6 F Pulse Rate 83 Pulse Rate [Pulse Oximeter] Pulse Rate [Right Femoral] 86 Respiratory Rate 24 Blood Pressure Blood Pressure [Le ft Upper Arm] 121/57 L Blood Pressure [Ri ght Arm] Pulse Oximetry 91 94 93 Oxygen Delivery Me thod Room Air 07/03/24 13:24 07/03/24 13:30 07/03/24 13:32 Temperature Pulse Rate 82 84 84 Pulse Rate [Pulse Oximeter] Pulse Rate [Right Femoral] Respiratory Rate Blood Pressure 163/73 H 155/70 H Blood Pressure [Le ft Upper Arm] Blood Pressure [Ri ght Arm] Pulse Oximetry 94 94 95 Oxygen Delivery Me thod 07/03/24 14:01 07/03/24 14:02 07/03/24 14:30 Temperature Pulse Rate 83 82 83 Pulse Rate [Pulse Oximeter] Pulse Rate [Right Femoral] Respiratory Rate Blood Pressure 160/62 H Blood Pressure [Le ft Upper Arm] Blood Pressure [Ri ght Arm] Pulse Oximetry 91 93 92 Oxygen Delivery Me thod 07/03/24 14:32 07/03/24 16:33 07/03/24 17:26 Temperature 98.2 F Pulse Rate 83 Pulse Rate [Pulse Oximeter] 89 Pulse Rate [Right Femoral] Respiratory Rate 24 24 Blood Pressure 150/108 H Blood Pressure [Le ft Upper Arm] Blood Pressure [Ri ght Arm] 125/59 L Pulse Oximetry 89 93 93 Oxygen Delivery Mn thod Room Air Room Air 07/03/24 19:00 07/03/24 23:00 07/03/24 23:00 Temperature 98.3 F 98.1 F Pulse Rate 86 Pulse Rate [Pulse Oximeter] 83 87 Pulse Rate [Right Femoral] Respiratory Rate 16 18 Blood Pressure Blood Pressure [Le ft Upper Arm] Blood Pressure [Ri ght Arm] 132/64 137/64 Pulse Oximetry 90 90 Oxygen Delivery Mn thod Room Air Room Air 07/03/24 23:00 07/04/24 03:00 07/04/24 08:00 Temperature 97.5 F L 97.7 F Pulse Rate Pulse Rate [Pulse Oximeter] 78 78 78 Pulse Rate [Right Femoral] Respiratory Rate 16 16 18 Blood Pressure Blood Pressure [Le ft Upper Arm] Blood Pressure [Ri ght Arm] 140/63 H 171/78 H Pulse Oximetry 93 93 Oxygen Delivery Mn thod Room Air Room Air Labs Labs: Laboratory Results - last 24 hr 07/03/24 07/03/24 07/03/24 13:22 14:00 15:05 WBC 20.97 H RBC 3.58 L Hgb 9.7 L Hct 30.1 L MCV 84 MCH 27 MCHC 32 RDW Coeff of Evaristo 16.3 H Plt Count 407 Neut % (Auto) 49.0 Lymph % (Auto) 6.1 L [place] % (Auto) 44.1 H Eos % (Auto) 0.0 Baso % (Auto) 0.1 Neut # (Auto) 10.30 H Lymph # (Auto) 1.30 [place] # (Auto) 9.20 H Eos # (Auto) 0.00 Baso # (Auto) 0.00 Abs Immat Gran (auto) 0.10 Imm/Tot Granulo (auto) 0.7 Diff Slide Review Acceptable Review ESR 52 H Sodium 131 L Potassium 3.6 Chloride 96 Carbon Dioxide 26 Anion Gap 9 BUN 26 Creatinine 0.4 L Estimated Creat Clear 43.07 Estimated GFR 103 Glucose 145 H Lactate 0.9 Calcium 8.8 Total Bilirubin 1.2 AST 23 ALT 6 Alkaline Phosphatase 90 Troponin I 0.01 C-Reactive Protein 3.0 H NT-Pro-B Natriuret Pep 430 Total Protein 7.1 Albumin 4.1 Procalcitonin 0.07 Urine Color Urine Appearance Urine pH Ur Specific [place] Urine Protein Urine Glucose (UA) Urine Ketones Urine Blood Urine Nitrite Urine Bilirubin Urine Urobilinogen Ur Leukocyte Esterase Urine RBC Urine WBC Ur Squamous Epith Cells Amorphous Sediment Other Sediment Urine Bacteria Coarse Granular Casts SARS-CoV-2 (PCR) POSITIVE SARS-CoV-2 A Influenza Type A (PCR) Negative PCR FLU A Influenza Type B (PCR) Negative PCR FLU B RSV (PCR) Negative PCR RSV SARS-CoV-2 Ag (Rapid) Lab Acknowledgement New Spec Needed 07/03/24 07/03/24 07/04/24 15:20 15:36 09:26 WBC 19.62 H RBC 3.45 L Hgb 9.3 L Hct 28.9 L MCV 84 MCH 27 MCHC 32 RDW Coeff of Evaristo 16.3 H Plt Count 391 Neut % (Auto) 53.7 Lymph % (Auto) 7.6 L [place] % (Auto) 37.7 H Eos % (Auto) 0.1 Baso % (Auto) 0.2 Neut # (Auto) 10.50 H Lymph # (Auto) 1.50 [place] # (Auto) 7.40 H Eos # (Auto) 0.00 Baso # (Auto) 0.00 Abs Immat Gran (auto) 0.10 Imm/Tot Granulo (auto) 0.7 Diff Slide Review ESR Sodium 130 L Potassium 3.4 L Chloride 98 Carbon Dioxide 24 Anion Gap 8 BUN 16 Creatinine 0.5 Estimated Creat Clear 43.07 Estimated GFR 97 Glucose 161 H Lactate Calcium 8.5 Total Bilirubin 1.0 AST 20 ALT 12 Alkaline Phosphatase 91 Troponin I C-Reactive Protein NT-Pro-B Natriuret Pep Total Protein 6.7 Albumin 3.8 Procalcitonin Urine Color Yellow Urine Appearance Clear Urine pH 7.0 Ur Specific [place] 1.020 Urine Protein 1+ A Urine Glucose (UA) Negative Urine Ketones Negative Urine Blood Trace-intact A Urine Nitrite Negative Urine Bilirubin Negative Urine Urobilinogen 1.0 Ur Leukocyte Esterase Negative Urine RBC 5-10 A Urine WBC 0-2 Ur Squamous Epith Cells Many A Amorphous Sediment Few A Other Sediment Few A Urine Bacteria Few A Coarse Granular Casts Few A SARS-CoV-2 (PCR) Influenza Type A (PCR) Influenza Type B (PCR) RSV (PCR) SARS-CoV-2 Ag (Rapid) Negative Lab Acknowledgement
--- NOTE | 2024-07-04 13:18 | CRLHL7_ITS ---
For Patients: As a result of the Century Cures Act, medical imaging exams and procedure reports are released immediately into your electronic medical record. You may view this report before your referring provider. If you have questions, please contact your health care provider. Indication: NEUROLOGICAL ABNORMALITY Technique: 3D Ntni-iz-[id number] MR angiogram of the [id number] with 3-dimensional MIP projections were submitted. Comparison: MRI brain 07/04/2024 Findings: The visualized first and second order intracranial vessels are unremarkable. No occlusion/filling defect or acquired arterial stenosis identified. No aneurysm or vascular malformation seen. Impression: No evidence of proximal arterial occlusion, aneurysm, dissection, or vascular malformation. Dictated by Edwardo Fink MD @ 07/04/2024 7:13:26 PM (Electronically Signed)
--- NOTE | 2024-07-04 13:18 | CRLHL7_ITS ---
For Patients: As a result of the Century Cures Act, medical imaging exams and procedure reports are released immediately into your electronic medical record. You may view this report before your referring provider. If you have questions, please contact your health care provider. Indication: NEUROLOGICAL ABNORMALITY Technique: [id number] and Gadolinium bolus MR angiogram of the neck with 3D MIP reconstructions provided. All measurements are based on NASCET criteria. Postcontrast images obtained after administration of 15 ml Dotarem Gadolinium-based IV contrast. Comparison: No prior studies available for comparison at this institution. Findings: Both carotid systems are unremarkable in the neck. No evidence for hemodynamically significant internal carotid artery stenosis by NASCET criteria. The cervical segments of both vertebral arteries are patent. Moderate-severe stenosis at the origin of the left vertebral artery. The visualized portions of the aortic arch, great vessel origins and proximal subclavian arteries are unremarkable. Impression: 1. No significant stenosis at the carotid bifurcations. 2. Unremarkable right vertebral artery. Moderate-severe stenosis at the origin of the left vertebral artery. Dictated by Edwardo Fink MD @ 07/04/2024 7:17:01 PM (Electronically Signed)
--- NOTE | 2024-07-04 15:57 | PC.NURSE ---
End of Shift: Patient pleasant and cooperative. Oriented to self and place this shift, reoriented PRN. VSS, afebrile. Tolerating regular diet. Denies pain this shift. Speech eval completed today, takes pills whole in applesauce or pudding. Neuro consult completed today.
[2024-07-04] MEDS: polyethylene glycoL 3350 17 GM PACK PO (17:39)
[2024-07-04] MEDS: ENOXAPARIN 40 MG/0.4 ML INJ SUBCUT (20:26)
[2024-07-04] MEDS: SENNOSIDES/DOCUSATE TABLET 1 TAB PO (20:26)
[2024-07-04] MEDS: SIMVASTATIN 20 MG TABLET PO (20:26)
[2024-07-04] MEDS: MELATONIN 3 MG TABLET PO (20:26)
[2024-07-04] MEDS: SODIUM CHLORIDE 0.9 % (FLUSH) 10 ML SYRINGE 5 ML IVF (20:27)
--- NOTE | 2024-07-04 22:43 | PC.NURSE ---
Pt alert to self. Pt has been unable to transfer during shift. Pt had no complaints of pain. Pt had MRI around 1630. Pt takes medications whole in applesauce. Pt?s family at bedside. Pt was hypotensive this evening and MD notified; no intervention at this time. Pt able to rest late this evening.?
[2024-07-05] VITALS (17 sets, daily range): BP systolic 80–141; BP diastolic 40–76; PULSE 69–85; RESP 14–24; TEMP 36.3–37.4; O2SAT 91–98
[2024-07-05] MEDS: ACETAMINOPHEN 650 MG TABLET ER 1300 MG PO ×2 (06:13→18:25)
--- NOTE | 2024-07-05 06:45 | PC.NURSE ---
End of shift summary: Pt has been alert & oriented to self & place. Disoriented to time & situation. During this morning?s med pass, pt had an episode of confusion. She thought she was on the floor and needed help getting back up. It took reassurance and reorientation to convince patient that she was not laying on the floor. She?s been afebrile & VSS overnight. Pt was not out of bed overnight. Purewick intact with adequate output. 0200 blood sugar: 119. Pt denies having any pain, nausea or dizziness. PIV in left AC SL and C/D/I. TELE read NSR overnight. No noted swallowing issues, pt tolerated thin liquids through a straw without coughing afterwards. Repositioned & offloading as needed overnight. Bed alarm in place d/t acute AMS.?
[2024-07-05 07:23] LABS: Basophils Percent Auto 0.2 % (0.0-3.0); Eosinophils Percent Auto 0.2 % (0.0-7.0); Hematocrit 28.9 % (33.0-51.0); Hemoglobin* 9.2 gm/dL (12.0-16.0); Immature Granulocytes Pct Auto 0.7 %; Lymphocytes Percent Auto 9.5 % (20-44); Mean Corpuscular HGB Conc 32 gm/dL (32-36); Mean Corpuscular Hemoglobin 27 pg (26-34); Mean Corpuscular Volume 85 fL (80-100); Monocytes Percent Auto 40.2 % (0.0-11.0); Neutrophils Percent Auto 49.2 % (42.0-72.0); Platelet Count* 390 K/uL (140-440); RDW Coefficient of Variation % 16.4 % (11.5-15.5); Red Blood Count 3.42 m/uL (4.00-5.20)
[2024-07-05 07:26] LABS: Albumin* 3.7 g/dL (3.3-5.0); Chloride* 98 mmol/L (96-114); Slide Review Reflex No
[2024-07-05 07:27] LABS: Potassium* 3.6 mmol/L (3.6-5.1); Sodium* 132 mmol/L (135-149)
[2024-07-05 07:29] LABS: Alanine Aminotransferase* 11 U/L (4-35); Alkaline Phosphatase* 86 U/L (40-150); Anion Gap 8 mEq/L (7-15); Aspartate Amino Transferase* 18 U/L (12-35); Bilirubin Total* 0.7 mg/dL (0.1-1.5); Blood Urea Nitrogen* 15 mg/dL (7-30); Calcium* 8.6 mg/dL (8.4-10.6); Carbon Dioxide* 26 mmol/L (20-32); Creatinine* 0.5 mg/dL (0.5-1.5); Est. Creatinine Clearance* 43.07; Estimated Glomerular Filt Rate 97 ml/min; Glucose* 148 mg/dL (60-115); Total Protein* 6.7 g/dL (6.0-8.3)
[2024-07-05 07:30] LABS: Magnesium* 1.9 mg/dL (1.5-2.6)
--- NOTE | 2024-07-05 08:00 | CRLHL7_ITS ---
For Patients: As a result of the Century Cures Act, medical imaging exams and procedure reports are released immediately into your electronic medical record. You may view this report before your referring provider. If you have questions, please contact your health care provider. INDICATION: swallowing difficulty; neurodegenerative disorder NOS TECHNIQUE: Modified barium swallow. Fluoroscopic time 1 minute 10 seconds. COMPARISON: None FINDINGS/IMPRESSION: Early spillage noted. No aspiration or penetration. No obstruction. No diverticulum. Normal retroversion of the epiglottis. Normal motion of the posterior tongue. Dictated by Edwardo Akins MD @ 07/05/2024 12:18:48 PM (Electronically Signed)
[2024-07-05 08:19] LABS: Erythrocyte SedimentationRate* 80 mm/hr (2-20)
[2024-07-05] MEDS: SENNOSIDES/DOCUSATE TABLET 1 TAB PO ×2 (09:43→21:25)
[2024-07-05] MEDS: CARBIDOPA-LEVODOPA 25-100 TABLET 1 TAB PO ×4 (09:43→21:25)
[2024-07-05] MEDS: ESCITALOPRAM 10 MG TABLET 20 MG PO (09:43)
[2024-07-05] MEDS: SODIUM CHLORIDE 0.9 % (FLUSH) 10 ML SYRINGE 5 ML IVF ×2 (09:44→21:25)
[2024-07-05] MEDS: polyethylene glycoL 3350 17 GM PACK PO (09:44)
[2024-07-05] MEDS: FOLIC ACID 1 MG TABLET PO (09:44)
[2024-07-05] MEDS: INSULIN ASPART 100 UNIT/ML SUBCUT (11:58)
--- NOTE | 2024-07-05 13:47 | P.IMPN_ITS ---
Progress Note: A&P Assessment and plan (1) Weakness: Problem details: - ddx: UTI (recent E Coli, current UA reassuring), COVID (relapse vs long covid), worsening neurodegenerative process (Parkinsons/other), new acute neurological process - therapies following, Neurology (Dr. Maria) following - reassuring brain MRI on 07/04, MRA of head and neck also without acute abnormality - multiple labs pending Status: Acute (2) Neuro-degenerative disorders: Problem details: - Parkinson's progression vs other vs secondary diagnosis - Tele Neurology (Dr. Maria) - reassuring brain MRI on 07/04, head and neck MRA also reassuring - if any worsening clinical picture, or need for further diagnostic clarity, consider LP (continuing to hold off on this 07/05) Status: Acute (3) Parkinson's disease: Problem details: - saw [facility] Neu[facility] 05/29 (Sinemet trial started then) - increased to QID on 07/03/24 - Dr. Maria following during stay, consider other neurological diseases - mild visual hallucinations noted 07/04 without agitation: prn Seroquel ordered Status: Acute (4) PFO (patent foramen ovale): Problem details: - noted on 07/04 TTE, new diagnosis - reviewed with Dr. Cardenas of Cardiology 07/05, no need for urgent intervention or anticoagulation unless + DVT (recommends BLE ultrasounds to r/o DVTs) Final Impressions: 1. LVEF estimate 60-65%. Normal LV size and wall thickness. 2. Mildly dilated RV with preserved global function. 3. No significant valvular abnormalities. 4. Normal RAP estimate. 5. Atrial septal aneurysm with significant [id number] shunt at rest and with Valsalva [Grade V PFO]. Consider ANDRES for further evaluation. Status: Acute (5) Difficulty in swallowing: Problem details: - bedside swallow with RN; speech therapy following - barium swallow 07/05: Early spillage noted, no aspiration/penetration, no obstruction/diverticulum, normal retroversion of the epiglottis, normal motion posterior tongue Status: Acute (6) Monocytosis: Problem details: - monocytosis of undetermined significance seen on peripheral smear, 04/28, 06/28 - query MDS, perhaps related to current acute illness/neurological changes - paraneoplastic panel pending Status: Acute (7) COVID: Problem details: - 06/21/24 symptom onset, did not require any COVID specific therapies at that time - currently stable on RA, asymptomatic, reassuring CXR 07/03/24 Status: Acute (8) Type 2 diabetes mellitus: Problem details: - outpatient Metformin (on hold during stay) -- bedside glucose monitoring; SSI Status: Acute (9) Normocytic anemia: Problem details: - peripheral smear done 04/28, probably anemia of chronic disease versus combination of B12 with iron deficiency Status: Acute (10) Mild cognitive impairment: Problem details: - Minicog 0/5 04/28 Status: Acute (11) Hypertension: Problem details: - continue home losartan Status: Acute (12) Anxiety: Problem details: - continue home escitalopram Status: Acute (13) Hyperlipidemia: Problem details: - continue statin Status: Acute Plan - per above - daughter October updated at bedside, questions answered Subjective Date Seen: 07/05/24 Interval history: Sumaya was admitted to the hospital on 07/03 for an acute neurologic change in the setting of known Parkinson's disease. Recent outpatient course: - Left reverse shoulder arthroplasty on 06/15/24, recovery complicated by COVID infection. - Hospitalized for an E Coli UTI 06/27-06/28, was baseline at that time - noted progressive weakness (requiring 2 person assist) in the days prior to admission Since admission: - Brain MRI revealed no acute infarction, mild chronic microvascular ischemic changes, moderate generalized volume loss - head and neck MRA - seen by Dr. Maria of Neurology; query alternative neurologic process (Lewy body, FTD) vs infectious/malignant process. Multiple labs pending - TTE revealed PFO Sumaya had a barium swallow study with speech therapy today. She has no concerns of headache or visual abnormalities. She did have a few visual hallucinations yesterday that self-resolved, she was not agitated during this time. Exam Narrative: Exam Narrative: GEN: Alert and answering questions appropriately, nontoxic HEENT: EOMIs bilaterally, no scleral icterus CV: RRR, No concerning murmurs R: LCTA bilaterally without concerning wheezing Ext: wwp, no concerning edema Skin: No concerning skin lesions or rashes on exposed skin Neuro: Rightward leaning in chair Psych: No agitation or hallucinations Const: Vital Signs, click to edit/add: Vital Signs - 24 hr 07/04/24 15:00 07/04/24 15:34 07/04/24 19:01 Temperature 97.8 F 98.3 F Pulse Rate 69 Pulse Rate [Pulse Oximeter] 70 83 Respiratory Rate 20 22 Blood Pressure [Ri ght Arm] 140/75 H 91/56 L Pulse Oximetry 93 93 Oxygen Delivery Me thod Room Air Room Air 07/05/24 00:00 07/05/24 00:00 07/05/24 00:00 Temperature 97.4 F L Pulse Rate 80 Pulse Rate [Pulse Oximeter] 85 85 Respiratory Rate 18 18 Blood Pressure [Ri ght Arm] 127/76 Pulse Oximetry 92 Oxygen Delivery Nh thod Room Air 07/05/24 03:30 07/05/24 07:26 07/05/24 08:28 Temperature 98.3 F 99.3 F Pulse Rate 83 Pulse Rate [Pulse Oximeter] 75 78 Respiratory Rate 18 24 Blood Pressure [Ri ght Arm] 119/60 141/71 H Pulse Oximetry 91 92 Oxygen Delivery Nh thod Room Air Room Air 07/05/24 08:28 07/05/24 11:29 Temperature 98.4 F Pulse Rate Pulse Rate [Pulse Oximeter] 78 79 Respiratory Rate 24 14 Blood Pressure [Ri ght Arm] 104/67 Pulse Oximetry 92 Oxygen Delivery Nh thod Room Air Labs Labs: Laboratory Results - last 24 hr 07/05/24 06:35 WBC 16.40 H RBC 3.42 L Hgb 9.2 L Hct 28.9 L MCV 85 MCH 27 MCHC 32 RDW Coeff of Evaristo 16.4 H Plt Count 390 Neut % (Auto) 49.2 Lymph % (Auto) 9.5 L [place] % (Auto) 40.2 H Eos % (Auto) 0.2 Baso % (Auto) 0.2 Neut # (Auto) 8.10 H Lymph # (Auto) 1.60 [place] # (Auto) 6.60 H Eos # (Auto) 0.00 Baso # (Auto) 0.00 Abs Immat Gran (auto) 0.10 Imm/Tot Granulo (auto) 0.7 ESR 80 H Sodium 132 L Potassium 3.6 Chloride 98 Carbon Dioxide 26 Anion Gap 8 BUN 15 Creatinine 0.5 Estimated Creat Clear 43.07 Estimated GFR 97 Glucose 148 H Calcium 8.6 Magnesium 1.9 Total Bilirubin 0.7 AST 18 ALT 11 Alkaline Phosphatase 86 C-Reactive Protein 12.0 H Total Protein 6.7 Albumin 3.7
--- NOTE | 2024-07-05 14:02 | CRLHL7_ITS ---
For Patients: As a result of the Century Cures Act, medical imaging exams and procedure reports are released immediately into your electronic medical record. You may view this report before your referring provider. If you have questions, please contact your health care provider. INDICATION: Rule out DVT. TECHNIQUE: Ultrasound venous duplex bilateral lower extremity. Compression venous exam was performed using ybarra-scale, color Doppler, and spectral Doppler analysis. COMPARISON: None. FINDINGS: Patent bilateral common femoral vein, femoral vein, popliteal vein, and visualized calf veins. IMPRESSION: No deep venous thrombosis identified in the lower extremities. Dictated by Celio Anne MD @ 07/05/2024 3:10:23 PM (Electronically Signed)
[2024-07-05] MEDS: ERTAPENEM 1 GM in 0.9 % SODIUM CHLORIDE Mini-bag 100 ML IVPB (15:16)
[2024-07-05] MEDS: 0.9 % SODIUM CHLORIDE 250 ml IV (15:16)
--- NOTE | 2024-07-05 15:26 | PC.SOCIAL ---
Addendum entered by ENIO Hough 07/05/24 16:07: Discharge planning: painting worker spoke to pt's daughter October this afternoon at the end of the day and updated her about [facility] and also let her know that [facility] are still reviewing the pt's referral. painting worker will pick this case back up on due to the holiday tomorrow. Social work to follow-up as needed. Addendum entered by ENIO Hough 07/05/24 15:54: Discharge planning: painting worker heard back from Fela at [facility] whom shared that this worker could check with her this Thursday on availability, but as of right now they have a COVID outbreak at their facility and cannot take anymore patients. Social work to follow-up as needed. Original Note: Discharge planning: painting worker met with pt's son, Tre, to discuss discharge planning. painting worker provided Tre with a list of [facility] Facilities that contract with pt's [facility] Medicare Advantage plan. painting worker also sent a copy of the same list to pt's daughter, October, via email earlier today. Pt is being recommended for short-term rehab at discharge and per family may eventually move to an Assisted Living Facility or Long-term Care Facility depending on how her recovery goes after the hospital. Tre asked that this worker check availability for short-term rehab at [facility], [facility] and [facility]. A referral was sent via secure email to all facilities for review as they all have short-term rehab openings right now. Social work to follow-up as needed.
--- NOTE | 2024-07-05 18:59 | PC.NURSE ---
End of Shift [id number]: Patient pleasant and cooperative, alert and oriented x3 this afternoon, patient is forgetful on and off. Patient denies pain but does have discomfort with activity. Patient is EZ-stand to the chair and has been up in chair for all meals. Patient has little appetite and eats bites of meals and at times 50% of meals. Purwick functional, diaper changed once slightly soiled, no BM. Blood sugars 143, 166, 112.
[2024-07-05] MEDS: LOSARTAN POTASSIUM 50 MG TABLET 100 MG PO (21:25)
[2024-07-05] MEDS: ENOXAPARIN 40 MG/0.4 ML INJ SUBCUT (21:25)
[2024-07-05] MEDS: SIMVASTATIN 20 MG TABLET PO (21:25)
[2024-07-05] MEDS: 0.9 % SODIUM CHLORIDE 500 ML 500 ML IV (22:08)
[2024-07-06] VITALS (10 sets, daily range): BP systolic 91–130; BP diastolic 58–68; PULSE 69–81; RESP 16–22; TEMP 36.3–37.4; O2SAT 94–96
[2024-07-06] MEDS: ACETAMINOPHEN 650 MG TABLET ER 1300 MG PO ×2 (06:12→18:07)
[2024-07-06 07:16] LABS: Basophils Percent Auto 0.2 % (0.0-3.0); Eosinophils Percent Auto 0.6 % (0.0-7.0); Hematocrit 27.5 % (33.0-51.0); Hemoglobin* 8.8 gm/dL (12.0-16.0); Immature Granulocytes Pct Auto 0.8 %; Lymphocytes Percent Auto 13.9 % (20-44); Mean Corpuscular HGB Conc 32 gm/dL (32-36); Mean Corpuscular Hemoglobin 27 pg (26-34); Mean Corpuscular Volume 85 fL (80-100); Monocytes Percent Auto 36.2 % (0.0-11.0); Neutrophils Percent Auto 48.3 % (42.0-72.0); Platelet Count* 359 K/uL (140-440); RDW Coefficient of Variation % 16.4 % (11.5-15.5); Red Blood Count 3.24 m/uL (4.00-5.20)
[2024-07-06 07:19] LABS: Slide Review Reflex No
[2024-07-06 07:33] LABS: Albumin* 3.4 g/dL (3.3-5.0); Chloride* 103 mmol/L (96-114); Sodium* 135 mmol/L (135-149)
[2024-07-06 07:34] LABS: Potassium* 3.7 mmol/L (3.6-5.1)
[2024-07-06 07:36] LABS: Alanine Aminotransferase* 8 U/L (4-35); Alkaline Phosphatase* 76 U/L (40-150); Anion Gap 5 mEq/L (7-15); Aspartate Amino Transferase* 20 U/L (12-35); Bilirubin Total* 0.5 mg/dL (0.1-1.5); Blood Urea Nitrogen* 17 mg/dL (7-30); Carbon Dioxide* 27 mmol/L (20-32); Creatinine* 0.5 mg/dL (0.5-1.5); Est. Creatinine Clearance* 43.07; Estimated Glomerular Filt Rate 97 ml/min; Glucose* 122 mg/dL (60-115); Total Protein* 6.2 g/dL (6.0-8.3)
[2024-07-06 07:37] LABS: Calcium* 8.2 mg/dL (8.4-10.6)
[2024-07-06 07:55] LABS: C Reactive Protein* 12.3 mg/dL (0.5-1.0)
[2024-07-06 08:14] LABS: Erythrocyte SedimentationRate* 63 mm/hr (2-20)
[2024-07-06] MEDS: polyethylene glycoL 3350 17 GM PACK PO (09:25)
[2024-07-06] MEDS: FOLIC ACID 1 MG TABLET PO (09:26)
[2024-07-06] MEDS: SODIUM CHLORIDE 0.9 % (FLUSH) 10 ML SYRINGE 5 ML IVF ×2 (09:26→21:17)
[2024-07-06] MEDS: SENNOSIDES/DOCUSATE TABLET 1 TAB PO ×2 (09:26→21:14)
[2024-07-06] MEDS: ESCITALOPRAM 10 MG TABLET 20 MG PO (09:26)
[2024-07-06] MEDS: CARBIDOPA-LEVODOPA 25-100 TABLET 1 TAB PO ×4 (09:26→21:26)
--- NOTE | 2024-07-06 11:30 | P.IMPN_ITS ---
Progress Note: A&P Assessment and plan (1) Weakness: Problem details: - ddx: UTI (recent E Coli, current UA reassuring), COVID (relapse vs long covid), worsening neurodegenerative process (Parkinsons/other), new acute neurological process - therapies following, Neurology (Dr. Maria) following - reassuring brain MRI on 07/04, MRA of head and neck also without acute abnormality - multiple labs pending Status: Acute (2) Neuro-degenerative disorders: Problem details: - Parkinson's progression vs other vs secondary diagnosis - Tele Neurology (Dr. Maria) - reassuring brain MRI on 07/04, head and neck MRA also reassuring - if any worsening clinical picture, or need for further diagnostic clarity, consider LP (continuing to hold off on this 07/05) Status: Acute (3) Parkinson's disease: Problem details: - saw [facility] 05/29 (Sinemet trial started then) - increased to QID on 07/03/24 - Dr. Maria following during stay, consider other neurological diseases - mild visual hallucinations noted 07/04 without agitation: prn Seroquel ordered Status: Acute (4) PFO (patent foramen ovale): Problem details: - noted on 07/04 TTE, new diagnosis - reviewed with Dr. Cardenas of Cardiology 07/05, no need for urgent intervention or anticoagulation unless + DVT (recommends BLE ultrasounds to r/o DVTs) Final Impressions: 1. LVEF estimate 60-65%. Normal LV size and wall thickness. 2. Mildly dilated RV with preserved global function. 3. No significant valvular abnormalities. 4. Normal RAP estimate. 5. Atrial septal aneurysm with significant npqno-qa-[id number] shunt at rest and with Valsalva [Grade V PFO]. Consider ANDRES for further evaluation. Status: Acute (5) Difficulty in swallowing: Problem details: - bedside swallow with RN; speech therapy following - barium swallow 07/05: Early spillage noted, no aspiration/penetration, no obstruction/diverticulum, normal retroversion of the epiglottis, normal motion posterior tongue Status: Acute (6) Monocytosis: Problem details: - monocytosis of undetermined significance seen on peripheral smear, 04/28, 06/28 - query MDS, perhaps related to current acute illness/neurological changes - paraneoplastic panel pending Status: Acute (7) COVID: Problem details: - 06/21/24 symptom onset, did not require any COVID specific therapies at that time - currently stable on RA, asymptomatic, reassuring CXR 07/03/24 Status: Acute (8) Type 2 diabetes mellitus: Problem details: - outpatient Metformin (on hold during stay) -- bedside glucose monitoring; SSI Status: Inactive (9) Normocytic anemia: Problem details: - peripheral smear done 04/28, probably anemia of chronic disease versus combination of B12 with iron deficiency Status: Acute (10) Mild cognitive impairment: Problem details: - Minicog 0/5 04/28 Status: Acute (11) Hypertension: Problem details: - continue home losartan Status: Acute (12) Anxiety: Problem details: - continue home escitalopram Status: Acute (13) Hyperlipidemia: Problem details: - continue statin Status: Acute Subjective Date Seen: 07/06/24 Interval history: Sumaya was admitted to the hospital on 07/03 for an acute neurologic change in the setting of known Parkinson's disease. Recent outpatient course: - Left reverse shoulder arthroplasty on 06/15/24, recovery complicated by COVID infection. - Hospitalized for an E Coli UTI 06/27-06/28, was baseline at that time - noted progressive weakness (requiring 2 person assist) in the days prior to admission Since admission: - Brain MRI revealed no acute infarction, mild chronic microvascular ischemic changes, moderate generalized volume loss - head and neck MRA - followed by Dr. Maria of Neurology; query alternative neurologic process (Lewy body, FTD) vs UTI vs infectious/malignant process. Multiple labs pending - TTE revealed grade V PFO, negative BLE ultrasounds - urine culture + for >100k Enterococcus faecalis, also <100k staph haemolytica, klebsiella: given IV Ertapenem 07/05, transitioned to oral Levaquin 07/06 - barium swallow with speech therapy: Early spillage noted, no aspiration/penetration, no obstruction/diverticulum, normal retroversion of the epiglottis, normal motion posterior tongue - intermittent visual hallucinations, no agitation, hasn't needed any Seroquel Exam Narrative: Exam Narrative: GEN: Alert and sitting comfortably in bedside chair, having breakfast HEENT: EOMIs bilaterally, no scleral icterus CV: RRR, No concerning murmurs, rubs, or gallops R: LCTA bilaterally without concerning wheezing Ext: wwp, no concerning edema Neuro: Leans to the right, no acute changes Psych: Appropriate Const: Vital Signs, click to edit/add: Vital Signs - 24 hr 07/05/24 15:00 07/05/24 15:24 07/05/24 18:46 Temperature 98.6 F Pulse Rate 70 Pulse Rate [Pulse Oximeter] 73 73 Respiratory Rate 22 22 Blood Pressure [Ri ght Arm] 141/73 H Pulse Oximetry 98 Oxygen Delivery Me thod Room Air 07/05/24 21:22 07/05/24 21:45 07/05/24 22:00 Temperature 98.4 F Pulse Rate Pulse Rate [Pulse Oximeter] 76 76 72 Respiratory Rate 20 16 16 Blood Pressure [Ri ght Arm] 104/54 L 92/46 L 80/40 L Pulse Oximetry 93 94 95 Oxygen Delivery Me thod Room Air Room Air Room Air 07/05/24 22:15 07/05/24 22:45 07/05/24 23:00 Temperature Pulse Rate 69 Pulse Rate [Pulse Oximeter] 75 73 Respiratory Rate 18 18 Blood Pressure [Ri ght Arm] 92/53 L 95/54 L Pulse Oximetry Oxygen Delivery Me thod 07/05/24 23:00 07/05/24 23:15 07/05/24 23:30 Temperature 97.8 F Pulse Rate Pulse Rate [Pulse Oximeter] 76 76 73 Respiratory Rate 18 16 16 Blood Pressure [Ri ght Arm] 96/51 L 94/51 L 108/45 L Pulse Oximetry 96 Oxygen Delivery Me thod Room Air 07/05/24 23:45 07/06/24 03:29 07/06/24 07:00 Temperature 97.3 F L Pulse Rate 71 Pulse Rate [Pulse Oximeter] 73 76 Respiratory Rate 16 16 Blood Pressure [Ri ght Arm] 105/56 L 130/60 Pulse Oximetry 95 Oxygen Delivery Me thod Room Air 07/06/24 09:18 07/06/24 09:18 Temperature 98.8 F Pulse Rate Pulse Rate [Pulse Oximeter] 81 81 Respiratory Rate 20 20 Blood Pressure [Ri ght Arm] 128/62 Pulse Oximetry 94 Oxygen Delivery Me thod Room Air Labs Labs: Laboratory Results - last 24 hr 07/06/24 06:15 WBC 11.30 H RBC 3.24 L Hgb 8.8 L Hct 27.5 L MCV 85 MCH 27 MCHC 32 RDW Coeff of Evaristo 16.4 H Plt Count 359 Neut % (Auto) 48.3 Lymph % (Auto) 13.9 L [place] % (Auto) 36.2 H Eos % (Auto) 0.6 Baso % (Auto) 0.2 Neut # (Auto) 5.50 Lymph # (Auto) 1.60 [place] # (Auto) 4.10 H Eos # (Auto) 0.10 Baso # (Auto) 0.00 Abs Immat Gran (auto) 0.10 Imm/Tot Granulo (auto) 0.8 ESR 63 H Sodium 135 Potassium 3.7 Chloride 103 Carbon Dioxide 27 Anion Gap 5 L BUN 17 Creatinine 0.5 Estimated Creat Clear 43.07 Estimated GFR 97 Glucose 122 H Calcium 8.2 L Total Bilirubin 0.5 AST 20 ALT 8 Alkaline Phosphatase 76 C-Reactive Protein 12.3 H Total Protein 6.2 Albumin 3.4
[2024-07-06] MEDS: INSULIN ASPART 100 UNIT/ML SUBCUT (11:48)
[2024-07-06] MEDS: levoFLOXacin 250 MG TABLET PO (11:48)
--- NOTE | 2024-07-06 12:17 | PM.IMPN1 ---
Progress Note: A&P Assessment and plan (1) Weakness: Problem details: - ddx: UTI (recent E Coli, currently + E Faecalis), COVID (relapse vs long covid), worsening neurodegenerative process (Parkinsons/other), new acute neurological process - therapies following, Neurology (Dr. Maria) following - reassuring brain MRI on 07/04, MRA of head and neck also without acute abnormality - multiple labs still pending - SNF stay recommended Status: Acute (2) Neuro-degenerative disorders: Problem details: - Parkinson's progression vs other vs secondary diagnosis - Tele Neurology (Dr. Maria) - reassuring brain MRI on 07/04, head and neck MRA also reassuring - if any worsening clinical picture, or need for further diagnostic clarity, consider LP (continuing to hold off on this 07/05) Status: Acute (3) Parkinson's disease: Problem details: - saw [facility] Neu[facility] 05/29 (Sinemet trial started then) - increased to QID on 07/03/24 - Dr. Maria following during stay, consider other neurological diseases - mild visual hallucinations noted 07/04 without agitation: prn Seroquel ordered Status: Acute (4) PFO (patent foramen ovale): Problem details: - noted on 07/04 TTE, new diagnosis - reviewed with Dr. Cardenas of Cardiology 07/05, no need for urgent intervention or anticoagulation (negative BLE ultrasounds) Final Impressions: 1. LVEF estimate 60-65%. Normal LV size and wall thickness. 2. Mildly dilated RV with preserved global function. 3. No significant valvular abnormalities. 4. Normal RAP estimate. 5. Atrial septal aneurysm with significant [id number] shunt at rest and with Valsalva [Grade V PFO]. Consider ANDRES for further evaluation. Status: Acute (5) Difficulty in swallowing: Problem details: - bedside swallow with RN; speech therapy following - barium swallow 07/05: Early spillage noted, no aspiration/penetration, no obstruction/diverticulum, normal retroversion of the epiglottis, normal motion posterior tongue Status: Acute (6) Monocytosis: Problem details: - monocytosis of undetermined significance seen on peripheral smear, 04/28, 06/28 - query MDS, perhaps related to current acute illness/neurological changes - paraneoplastic panel pending Status: Acute (7) COVID: Problem details: - 06/21/24 symptom onset, did not require any COVID specific therapies at that time - currently stable on RA, asymptomatic, reassuring CXR 07/03/24 Status: Acute (8) Type 2 diabetes mellitus: Problem details: - outpatient Metformin (on hold early on admission, restarting 07/06/24) - bedside glucose monitoring (BGs 112-203); SSI Status: Inactive (9) Normocytic anemia: Problem details: - peripheral smear done 04/28, probably anemia of chronic disease versus combination of B12 with iron deficiency Status: Acute (10) Mild cognitive impairment: Problem details: - Minicog 0/5 04/28 Status: Acute (11) Hypertension: Problem details: - continuing home losartan Status: Acute (12) Anxiety: Problem details: - continue home escitalopram Status: Acute (13) Hyperlipidemia: Problem details: - continue statin Status: Acute Plan - per above - likely to TCU 07/06/24 - daughter October updated at bedside, questions answered Subjective Date Seen: 07/06/24 Interval history: Sumaya was admitted to the hospital on 07/03 for an acute neurologic change in the setting of known Parkinson's disease. Recent outpatient course: - Left reverse shoulder arthroplasty on 06/15/24, recovery complicated by COVID infection - Hospitalized for an E Coli UTI 06/27-06/28, was baseline at that time - noted progressive weakness (requiring 2 person assist) in the days prior to admission Since admission: - Brain MRI revealed no acute infarction, mild chronic microvascular ischemic changes, moderate generalized volume loss - head and neck MRA - followed by Dr. Maria of Neurology; query alternative neurologic process (Lewy body, FTD) vs UTI vs infectious/malignant process. Multiple labs pending - TTE revealed grade V PFO, negative BLE ultrasounds - urine culture + for >100k Enterococcus faecalis, also <100k staph haemolytica, klebsiella: given IV Ertapenem 07/05, transitioned to oral Levaquin 07/06 - barium swallow with speech therapy: Early spillage noted, no aspiration/penetration, no obstruction/diverticulum, normal retroversion of the epiglottis, normal motion posterior tongue - intermittent visual hallucinations, no agitation, hasn't required any Seroquel Therapies following, likely discharge to SNF 07/07/24. Exam Narrative: Exam Narrative: GEN: Alert and oriented, sitting comfortably in bedside chair and eating breakfast HEENT: EOMIs bilaterally, no scleral icterus CV: RRR, No concerning murmurs R: LCTA bilaterally without concerning wheezing, air movement adequate Ext: wwp, no concerning edema Skin: No concerning skin lesions or rashes on exposed skin Neuro: Leaning to the R, no acute changes Psych: Appropriate Const: Vital Signs, click to edit/add: Vital Signs - 24 hr 07/05/24 15:00 07/05/24 15:24 07/05/24 18:46 Temperature 98.6 F Pulse Rate 70 Pulse Rate [Pulse Oximeter] 73 73 Respiratory Rate 22 22 Blood Pressure [Ri ght Arm] 141/73 H Pulse Oximetry 98 Oxygen Delivery Me thod Room Air 07/05/24 21:22 07/05/24 21:45 07/05/24 22:00 Temperature 98.4 F Pulse Rate Pulse Rate [Pulse Oximeter] 76 76 72 Respiratory Rate 20 16 16 Blood Pressure [Ri ght Arm] 104/54 L 92/46 L 80/40 L Pulse Oximetry 93 94 95 Oxygen Delivery Me thod Room Air Room Air Room Air 07/05/24 22:15 07/05/24 22:45 07/05/24 23:00 Temperature Pulse Rate 69 Pulse Rate [Pulse Oximeter] 75 73 Respiratory Rate 18 18 Blood Pressure [Ri ght Arm] 92/53 L 95/54 L Pulse Oximetry Oxygen Delivery Me thod 07/05/24 23:00 07/05/24 23:15 07/05/24 23:30 Temperature 97.8 F Pulse Rate Pulse Rate [Pulse Oximeter] 76 76 73 Respiratory Rate 18 16 16 Blood Pressure [Ri ght Arm] 96/51 L 94/51 L 108/45 L Pulse Oximetry 96 Oxygen Delivery Me thod Room Air 07/05/24 23:45 07/06/24 03:29 07/06/24 07:00 Temperature 97.3 F L Pulse Rate 71 Pulse Rate [Pulse Oximeter] 73 76 Respiratory Rate 16 16 Blood Pressure [Ri ght Arm] 105/56 L 130/60 Pulse Oximetry 95 Oxygen Delivery Me thod Room Air 07/06/24 09:18 07/06/24 09:18 07/06/24 11:42 Temperature 98.8 F 97.9 F Pulse Rate Pulse Rate [Pulse Oximeter] 81 81 77 Respiratory Rate 20 20 20 [facility] 128/62 103/68 Pulse Oximetry 94 95 Oxygen Delivery Me thod Room Air Room Air Labs Labs: Laboratory Results - last 24 hr 07/06/24 06:15 WBC 11.30 H RBC 3.24 L Hgb 8.8 L Hct 27.5 L MCV 85 MCH 27 MCHC 32 RDW Coeff of Evaristo 16.4 H Plt Count 359 Neut % (Auto) 48.3 Lymph % (Auto) 13.9 L [place] % (Auto) 36.2 H Eos % (Auto) 0.6 Baso % (Auto) 0.2 Neut # (Auto) 5.50 Lymph # (Auto) 1.60 [place] # (Auto) 4.10 H Eos # (Auto) 0.10 Baso # (Auto) 0.00 Abs Immat Gran (auto) 0.10 Imm/Tot Granulo (auto) 0.8 ESR 63 H Sodium 135 Potassium 3.7 Chloride 103 Carbon Dioxide 27 Anion Gap 5 L BUN 17 Creatinine 0.5 Estimated Creat Clear 43.07 Estimated GFR 97 Glucose 122 H Calcium 8.2 L Total Bilirubin 0.5 AST 20 ALT 8 Alkaline Phosphatase 76 C-Reactive Protein 12.3 H Total Protein 6.2 Albumin 3.4
--- NOTE | 2024-07-06 18:21 | PC.NURSE ---
Addendum entered by Arelis Muse RN 07/06/24 19:01: Blood sugars 132, 203, and 108. Original Note: End of Shift [id number]: Patient pleasant and cooperative, forgetful with time orientation. Patient vitally stable, lungs clear, BS WNL, IV SL and intact. Patient denies pain. Patient EZ-stand to the chair. Patient incontinent using [place] (intact and draining) and did have BM in the toilet. Patient up in chair for all meals and had one nap. Patient tolerating regular diet eating more than yesterday but still with small appetite, patient drank one ensure and is currently working on a second.
[2024-07-06] MEDS: ENOXAPARIN 40 MG/0.4 ML INJ SUBCUT (21:17)
[2024-07-06] MEDS: SIMVASTATIN 20 MG TABLET PO (21:17)
[2024-07-07] VITALS (8 sets, daily range): BP systolic 101–152; BP diastolic 54–89; PULSE 74–86; RESP 16–21; TEMP 36.1–37; O2SAT 94–96
[2024-07-07] MEDS: ACETAMINOPHEN 650 MG TABLET ER 1300 MG PO ×2 (06:04→17:48)
[2024-07-07 07:31] LABS: Basophils Absolute Auto 0.03 K/uL (0.00-0.30); Basophils Percent Auto 0.4 % (0.0-3.0); Eosinophils Absolute Auto 0.08 K/uL (0.00-0.50); Eosinophils Percent Auto 1.2 % (0.0-7.0); Hemoglobin* 9.5 gm/dL (12.0-16.0); Immature Granulocytes Abs Auto 0.07 K/uL (0.00-0.30); Lymphocytes Absolute Auto 1.55 K/uL (0.90-2.90); Lymphocytes Percent Auto 22.9 % (20-44); Mean Corpuscular HGB Conc 32 gm/dL (32-36); Mean Corpuscular Hemoglobin 27 pg (26-34); Mean Corpuscular Volume 86 fL (80-100); Monocytes Percent Auto 28.7 % (0.0-11.0); Neutrophils Percent Auto 45.8 % (42.0-72.0); Platelet Count* 391 K/uL (140-440); RDW Coefficient of Variation % 16.6 % (11.5-15.5); Red Blood Count 3.49 m/uL (4.00-5.20); White Blood Count* 6.77 K/uL (4.50-11.00)
[2024-07-07 07:32] LABS: Slide Review Reflex No
--- NOTE | 2024-07-07 07:33 | PC.NURSE ---
Pt is alert and oriented to self and place but is forgetful of time. Pt denies pain, chest pain, SOB, and N/V. Pt?s external chen was changed and is patent and draining. Pt was turned and repositioned throughout night.
--- NOTE | 2024-07-07 07:43 | PC.NURSE ---
08/05/23-07/06/23 note for [id number] shift: Pt alert and oriented to self and place but struggles with time. Afebrile. Pt denies pain, chest pain, SOB, and N/V. Pt had low blood pressures, bp Q15min, updated MD Griffith, 500 cc bolus was given, bp trended back up, updated Estela, orders given to resume plan of care. Pt's brief and external chen catheter was changed and is external chen is patent and draining. Pt was turned and repositioned throughout night.
[2024-07-07 07:45] LABS: Albumin* 3.6 g/dL (3.3-5.0); Chloride* 103 mmol/L (96-114); Sodium* 139 mmol/L (135-149)
[2024-07-07 07:46] LABS: Potassium* 3.9 mmol/L (3.6-5.1)
[2024-07-07 07:48] LABS: Anion Gap 8 mEq/L (7-15); Aspartate Amino Transferase* 27 U/L (12-35); Bilirubin Total* 0.4 mg/dL (0.1-1.5); Carbon Dioxide* 28 mmol/L (20-32); Creatinine* 0.5 mg/dL (0.5-1.5); Est. Creatinine Clearance* 43.07; Estimated Glomerular Filt Rate 97 ml/min; Total Protein* 6.5 g/dL (6.0-8.3)
[2024-07-07 07:49] LABS: Alanine Aminotransferase* 11 U/L (4-35); Alkaline Phosphatase* 74 U/L (40-150); Blood Urea Nitrogen* 21 mg/dL (7-30); Calcium* 8.7 mg/dL (8.4-10.6); Glucose* 169 mg/dL (60-115)
[2024-07-07 08:21] LABS: Erythrocyte SedimentationRate* 77 mm/hr (2-20)
[2024-07-07] MEDS: ESCITALOPRAM 10 MG TABLET 20 MG PO (08:59)
[2024-07-07] MEDS: CARBIDOPA-LEVODOPA 25-100 TABLET 1 TAB PO ×4 (08:59→21:01)
[2024-07-07] MEDS: FOLIC ACID 1 MG TABLET PO (09:00)
[2024-07-07] MEDS: levoFLOXacin 250 MG TABLET PO (11:31)
--- NOTE | 2024-07-07 12:44 | PM.DS1 ---
DS: Providers Provider Date Seen: 07/07/24 Date of admission: 07/03/24 16:51 Primary care physician: Mary Espinoza MD Admitting Clinician: Tessie Griffith MD Consults: OT, PT, SW Attending Physician on discharge: Becca May MD Date of Discharge: 07/07/24 DS: Diagnosis Discharge Diagnosis (1) Weakness: Status: Acute Problem details: - ddx: UTI (recent E Coli, currently + E Faecalis), COVID (relapse vs long covid), worsening neurodegenerative process (Parkinsons/other), new acute neurological process - therapies following - reassuring brain MRI on 07/04, MRA of head and neck also without acute abnormality - multiple labs still pending - SNF stay recommended (2) Neuro-degenerative disorders: Status: Acute Problem details: - Parkinson's progression vs other vs secondary diagnosis - Tele Neurology (Dr. Maria) - reassuring brain MRI on 07/04, head and neck MRA also reassuring - if any worsening clinical picture, or need for further diagnostic clarity, consider LP (continuing to hold off on this 07/05) (3) Parkinson's disease: Status: Acute Problem details: - saw [facility] Neurology 05/29 (Sinemet trial started then) - increased to QID on 07/03/24, increasing again to 2 tabs Qam and 1 tab for other 3 doses on 07/07 (can continue to increase by 1 tab every 2-3 days) - Dr. Maria following during stay, consider other neurological diseases - mild visual hallucinations noted 07/04 without agitation: prn Seroquel ordered (4) PFO (patent foramen ovale): Status: Acute Problem details: - noted on 07/04 TTE, new diagnosis - reviewed with Dr. Cardenas of Cardiology 07/05, no need for urgent intervention or anticoagulation (negative BLE ultrasounds) Final Impressions: 1. LVEF estimate 60-65%. Normal LV size and wall thickness. 2. Mildly dilated RV with preserved global function. 3. No significant valvular abnormalities. 4. Normal RAP estimate. 5. Atrial septal aneurysm with significant [id number] shunt at rest and with Valsalva [Grade V PFO]. Consider ANDRES for further evaluation. (5) Difficulty in swallowing: Status: Acute Problem details: - bedside swallow with RN; speech therapy following - barium swallow 07/05: Early spillage noted, no aspiration/penetration, no obstruction/diverticulum, normal retroversion of the epiglottis, normal motion posterior tongue (6) Monocytosis: Status: Acute Problem details: - monocytosis of undetermined significance seen on peripheral smear, 04/28, 06/28 - query MDS, perhaps related to current acute illness/neurological changes - paraneoplastic panel pending (7) COVID: Status: Acute Problem details: - 06/21/24 symptom onset, did not require any COVID specific therapies at that time - currently stable on RA, asymptomatic, reassuring CXR 07/03/24 (8) Type 2 diabetes mellitus: Status: Inactive Problem details: - outpatient Metformin (on hold early on admission, restarting 07/06/24) - bedside glucose monitoring (BGs 112-203); SSI (9) Normocytic anemia: Status: Acute Problem details: - peripheral smear done 04/28, probably anemia of chronic disease versus combination of B12 with iron deficiency (10) Mild cognitive impairment: Status: Acute Problem details: - Minicog 0/5 04/28 (11) Hypertension: Status: Acute Problem details: - continuing home losartan (12) Anxiety: Status: Acute Problem details: - continue home escitalopram (13) Hyperlipidemia: Status: Acute Problem details: - continue statin DS: Summary Time Spent with Patient Time attestation: Total time spent providing and/or coordinating discharge services: Exam Const: Vital Signs, click to edit/add: Vital Signs - 24 hr 07/06/24 15:29 07/06/24 16:35 07/06/24 16:35 Temperature 99.3 F Pulse Rate 78 Pulse Rate [Pulse Oximeter] 81 81 Respiratory Rate 22 Blood Pressure [Ri ght Arm] 122/58 L Pulse Oximetry 96 Oxygen Delivery Me thod Room Air 07/06/24 21:02 07/06/24 22:30 07/06/24 23:00 Temperature 99.3 F 97.9 F Pulse Rate 69 Pulse Rate [Pulse Oximeter] 77 77 Respiratory Rate 20 18 Blood Pressure [Ri ght Arm] 91/64 109/58 L Pulse Oximetry 94 96 Oxygen Delivery Me thod Room Air Room Air 07/06/24 23:30 07/07/24 02:55 07/07/24 06:00 Temperature Pulse Rate Pulse Rate [Pulse Oximeter] Respiratory Rate 18 18 16 Blood Pressure [Ri ght Arm] Pulse Oximetry Oxygen Delivery Me thod 07/07/24 07:46 07/07/24 11:14 Temperature 97.0 F L 98.6 F Pulse Rate Pulse Rate [Pulse Oximeter] 74 86 Respiratory Rate 16 16 Blood Pressure [Ri ght Arm] 152/73 H 123/89 Pulse Oximetry 96 95 Oxygen Delivery Me thod Room Air Room Air DS: Data Data Completed and Pending Completed studies during hospitalization: Procedures Replacement of Left Shoulder Joint with Reverse Ball and Socket Synthetic Substitute, Open Approach (06/16/24) Labs on day of discharge: Labs from last 24 hours 07/07/24 06:55 WBC 6.77 RBC 3.49 L Hgb 9.5 L Hct 30.0 L MCV 86 MCH 27 MCHC 32 RDW Coeff of Evaristo 16.6 H Plt Count 391 Neut % (Auto) 45.8 Lymph % (Auto) 22.9 [place] % (Auto) 28.7 H Eos % (Auto) 1.2 Baso % (Auto) 0.4 Neut # (Auto) 3.10 Lymph # (Auto) 1.55 [place] # (Auto) 1.90 H Eos # (Auto) 0.08 Baso # (Auto) 0.03 Abs Immat Gran (auto) 0.07 Imm/Tot Granulo (auto) 1.0 ESR 77 H Sodium 139 Potassium 3.9 Chloride 103 Carbon Dioxide 28 Anion Gap 8 BUN 21 Creatinine 0.5 Estimated Creat Clear 43.07 Estimated GFR 97 Glucose 169 H Calcium 8.7 Total Bilirubin 0.4 AST 27 ALT 11 Alkaline Phosphatase 74 C-Reactive Protein 6.0 H Total Protein 6.5 Albumin 3.6 Discharge Plan Discharge Disposition: [facility] Date of Admission: 07/03/24 16:51 Attending Provider on Discharge: Becca May Consulting Providers: Mary Maria Primary Care Provider: Mary Espinoza Condition: Improved Anticipated Discharge Date/Time: 07/07/24 12:33 Discharge Medications: New polyethylene glycol 3350 [Miralax] 17 gram Powder In Packet 17 g PO DAILY PRNQty: 30 0RF sennosides-docusate sodium [Stool Softener-Laxative] 8.6-50 mg Tablet 1 tab PO BID Qty: 60 0RF levofloxacin 250 mg Tablet 250 mg PO Q24H 10 Days Qty: 10 0RF bisacodyl 10 mg Suppository 10 mg MS DAILY PRNQty: 30 0RF carbidopa-levodopa 25-100 mg Tablet 1 tab PO DAILY Qty: 30 0RF Rx Instructions: takes 2 tabs Qam, then 1 tab for the other three doses (total of 5 tabs/day) Continued albuterol sulfate 90 mcg/actuation HFA aerosol inhaler 1 inh inhalation Q4H PRN ondansetron 4 mg tablet,disintegrating 4 mg PO TID-QID PRN (Reason: nausea and vomiting) Qty: 30 1RF metformin 500 mg tablet extended release 24 hr 2,000 mg PO HS escitalopram oxalate 20 mg tablet 20 mg PO DAILY simvastatin 20 mg tablet 20 mg PO HS alendronate 70 mg tablet 70 mg PO MO carbidopa-levodopa 25-100 mg tablet 1 tab PO TID Vitron-C 65 mg iron- 125 mg tablet,delayed release (DR/EC) 1 tab PO DAILY losartan 100 mg tablet 100 mg PO HS Qty: 90 3RF acetaminophen 650 mg tablet extended release 1,300 mg PO Q12H Qty: 120 0RF mecobalamin (vitamin B12) [B12 Active] 1,000 mcg tablet,chewable 1,000 mcg PO DAILY Qty: 30 0RF folic acid 1 mg tablet 1 mg PO DAILY Qty: 30 0RF Discharge Orders: Discharge Order (Routine); Ordered 07/07/24 Ordered By: Becca May Additional Instructions: Sinemet was increased from 4-5 tabs/day on 07/07/24. Can continue to increase by 1 tab every 4-5 days as needed. Complete course of Levaquin for UTI. Outpatient f/u with Neurology. We will send lab pending lab results to Dr. Espinoza and daughter October. Activity Level: Activity as Tolerated Dysphagia Food: Level 6- Soft & Bite size Follow Up Appointments: Mary Espinoza MD [Primary Care Provider] - Forms: [facility] Info Instructions Admit to: SNF Discharge Potential: Fair Length of Stay: 30-90 days Can use facility standing orders?: Yes Code Status: Full Code Rehab Potential: Fair Therapy: Physical Therapy, Occupational Therapy and Speech Therapy Therapy Orders: Evaluate and Treat Oxygen: No Urinary Catheter: No Next INR: n/a Lab Orders: CBC and ESR in 7-10 days Orders are good >30 days: Yes Signature: Becca May MD
[2024-07-07 13:32] LABS: SARS Antigen* Negative (Negative)
--- NOTE | 2024-07-07 16:05 | PM.IMPN1 ---
Progress Note: A&P Assessment and plan (1) Weakness: Problem details: - ddx: UTI (recent E Coli, currently + E Faecalis), COVID (relapse vs long covid), worsening neurodegenerative process (Parkinsons/other), new acute neurological process - therapies following - reassuring brain MRI on 07/04, MRA of head and neck also without acute abnormality - multiple labs still pending - SNF stay recommended Status: Acute (2) Neuro-degenerative disorders: Problem details: - Parkinson's progression vs other vs secondary diagnosis - Tele Neurology (Dr. Maria) - reassuring brain MRI on 07/04, head and neck MRA also reassuring - if any worsening clinical picture, or need for further diagnostic clarity, consider LP (continuing to hold off on this 07/05) Status: Acute (3) Parkinson's disease: Problem details: - saw Dr. Weir [facility] Neurology 05/29 (Sinemet trial started then) - increased to QID on 07/03/24, increasing again to 2 tabs Qam and 1 tab for other 3 doses on 07/07 (can continue to increase by 1 tab every 2-3 days) - Dr. Maria following during stay, consider other neurological diseases - mild visual hallucinations noted 07/04 without agitation: prn Seroquel ordered Status: Acute (4) PFO (patent foramen ovale): Problem details: - noted on 07/04 TTE, new diagnosis - reviewed with Dr. Cardenas of Cardiology 07/05, no need for urgent intervention or anticoagulation (negative BLE ultrasounds) Final Impressions: 1. LVEF estimate 60-65%. Normal LV size and wall thickness. 2. Mildly dilated RV with preserved global function. 3. No significant valvular abnormalities. 4. Normal RAP estimate. 5. Atrial septal aneurysm with significant avdud-gz-wacu shunt at rest and with Valsalva [Grade V PFO]. Consider ANDRES for further evaluation. Status: Acute (5) Difficulty in swallowing: Problem details: - bedside swallow with RN; speech therapy following - barium swallow 07/05: Early spillage noted, no aspiration/penetration, no obstruction/diverticulum, normal retroversion of the epiglottis, normal motion posterior tongue Status: Acute (6) Monocytosis: Problem details: - monocytosis of undetermined significance seen on peripheral smear, 04/28, 06/28 - query MDS, perhaps related to current acute illness/neurological changes - paraneoplastic panel pending Status: Acute (7) COVID: Problem details: - 06/21/24 symptom onset, did not require any COVID specific therapies at that time - currently stable on RA, asymptomatic, reassuring CXR 07/03/24 Status: Acute (8) Type 2 diabetes mellitus: Problem details: - outpatient Metformin (on hold early on admission, restarting 07/06/24) - bedside glucose monitoring (BGs 112-203); SSI Status: Inactive (9) Normocytic anemia: Problem details: - peripheral smear done 04/28, probably anemia of chronic disease versus combination of B12 with iron deficiency Status: Acute (10) Mild cognitive impairment: Problem details: - Minicog 0/5 04/28 Status: Acute (11) Hypertension: Problem details: - continuing home losartan Status: Acute (12) Anxiety: Problem details: - continue home escitalopram Status: Acute (13) Hyperlipidemia: Problem details: - continue statin Status: Acute Plan - per above - daughter updated at bedside, questions answered - likely to SNF 07/08/24 Subjective Date Seen: 07/07/24 Interval history: Sumaya was admitted to the hospital on 07/03 for an acute neurologic change in the setting of known Parkinson's disease. Prior to admission: - Had a left reverse shoulder arthroplasty on 06/15/24, recovery complicated by COVID infection - Hospitalized for an E Coli UTI 06/27-06/28, was baseline for physical abilities at that time - noted progressive weakness (requiring 2 person assist) in the days prior to admission Since admission: - Brain MRI revealed no acute infarction, mild chronic microvascular ischemic changes, moderate generalized volume loss - head and neck MRA reassuring, no acute vasculitis - followed by Dr. Maria of Neurology; query alternative neurologic process (Lewy body, FTD) vs UTI vs infectious/malignant process. Multiple labs pending at this time - TTE revealed grade V PFO, negative BLE ultrasounds - urine culture + for >100k Enterococcus faecalis, also <100k staph haemolytica, klebsiella: given IV Ertapenem 07/05, transitioned to oral Levaquin 07/06 - barium swallow with speech therapy: Early spillage noted, no aspiration/penetration, no obstruction/diverticulum, normal retroversion of the epiglottis, normal motion posterior tongue - intermittent visual hallucinations, no agitation, hasn't required any Seroquel Therapies following, TCU stay recommended. Exam Narrative: Exam Narrative: Patient is sitting comfortably in bed and nontoxic in appearance Const: Vital Signs, click to edit/add: Vital Signs - 24 hr 07/06/24 16:35 07/06/24 16:35 07/06/24 21:02 Temperature 99.3 F 99.3 F Pulse Rate Pulse Rate [Pulse Oximeter] 81 81 77 Respiratory Rate 22 20 Blood Pressure [Ri ght Arm] 122/58 L 91/64 Pulse Oximetry 96 94 Oxygen Delivery Me thod Room Air Room Air 07/06/24 22:30 07/06/24 23:00 07/06/24 23:30 Temperature 97.9 F Pulse Rate 69 Pulse Rate [Pulse Oximeter] 77 Respiratory Rate 18 18 Blood Pressure [Ri ght Arm] 109/58 L Pulse Oximetry 96 Oxygen Delivery Me thod Room Air 07/07/24 02:55 07/07/24 06:00 07/07/24 07:46 Temperature 97.0 F L Pulse Rate Pulse Rate [Pulse Oximeter] 74 Respiratory Rate 18 16 16 Blood Pressure [Ri ght Arm] 152/73 H Pulse Oximetry 96 Oxygen Delivery Me thod Room Air 07/07/24 08:04 07/07/24 11:14 Temperature 98.6 F Pulse Rate 78 Pulse Rate [Pulse Oximeter] 86 Respiratory Rate 16 Blood Pressure [Ri ght Arm] 123/89 Pulse Oximetry 95 Oxygen Delivery Me thod Room Air Labs Labs: Laboratory Results - last 24 hr 07/07/24 07/07/24 06:55 13:05 WBC 6.77 RBC 3.49 L Hgb 9.5 L Hct 30.0 L MCV 86 MCH 27 MCHC 32 RDW Coeff of Evaristo 16.6 H Plt Count 391 Neut % (Auto) 45.8 Lymph % (Auto) 22.9 Towner % (Auto) 28.7 H Eos % (Auto) 1.2 Baso % (Auto) 0.4 Neut # (Auto) 3.10 Lymph # (Auto) 1.55 Towner # (Auto) 1.90 H Eos # (Auto) 0.08 Baso # (Auto) 0.03 Abs Immat Gran (auto) 0.07 Imm/Tot Granulo (auto) 1.0 ESR 77 H Sodium 139 Potassium 3.9 Chloride 103 Carbon Dioxide 28 Anion Gap 8 BUN 21 Creatinine 0.5 Estimated Creat Clear 43.07 Estimated GFR 97 Glucose 169 H Calcium 8.7 Total Bilirubin 0.4 AST 27 ALT 11 Alkaline Phosphatase 74 C-Reactive Protein 6.0 H Total Protein 6.5 Albumin 3.6 SARS-CoV-2 Ag (Rapid) Negative
--- NOTE | 2024-07-07 18:26 | PC.NURSE ---
Shift 15-19- Pt alert to self. Pt pleasant and cooperative. Pt had no complaints of pain. Pt assist of two with EZ Stand. Pt up in chair x2 during shift. Pt's family at bedside. Pt takes medications whole in pudding.
[2024-07-07] MEDS: SENNOSIDES/DOCUSATE TABLET 1 TAB PO (21:01)
[2024-07-07] MEDS: SIMVASTATIN 20 MG TABLET PO (21:01)
[2024-07-07] MEDS: SODIUM CHLORIDE 0.9 % (FLUSH) 10 ML SYRINGE 5 ML IVF (21:02)
[2024-07-07] MEDS: ENOXAPARIN 40 MG/0.4 ML INJ SUBCUT (21:02)
[2024-07-08] MEDS: ACETAMINOPHEN 650 MG TABLET ER 1300 MG PO (06:24)
[2024-07-08 06:36] LABS: Basophils Absolute Auto 0.02 K/uL (0.00-0.30); Basophils Percent Auto 0.3 % (0.0-3.0); Eosinophils Absolute Auto 0.05 K/uL (0.00-0.50); Eosinophils Percent Auto 0.8 % (0.0-7.0); Hematocrit 29.1 % (33.0-51.0); Hemoglobin* 9.1 gm/dL (12.0-16.0); Immature Granulocytes Abs Auto 0.05 K/uL (0.00-0.30); Immature Granulocytes Pct Auto 0.8 %; Lymphocytes Absolute Auto 1.62 K/uL (0.90-2.90); Lymphocytes Percent Auto 26.2 % (20-44); Mean Corpuscular HGB Conc 31 gm/dL (32-36); Mean Corpuscular Hemoglobin 27 pg (26-34); Mean Corpuscular Volume 86 fL (80-100); Monocytes Percent Auto 27.3 % (0.0-11.0); Neutrophils Absolute Auto 2.76 K/uL (1.7-7.0); Neutrophils Percent Auto 44.6 % (42.0-72.0); Platelet Count* 402 K/uL (140-440); RDW Coefficient of Variation % 16.5 % (11.5-15.5); Red Blood Count 3.38 m/uL (4.00-5.20); White Blood Count* 6.19 K/uL (4.50-11.00)
[2024-07-08 06:43] LABS: Slide Review Reflex No
[2024-07-08 06:59] LABS: Chloride* 103 mmol/L (96-114); Potassium* 4.1 mmol/L (3.6-5.1); Sodium* 137 mmol/L (135-149)
[2024-07-08 07:02] LABS: Anion Gap 6 mEq/L (7-15); Blood Urea Nitrogen* 23 mg/dL (7-30); Calcium* 8.6 mg/dL (8.4-10.6); Carbon Dioxide* 28 mmol/L (20-32); Creatinine* 0.5 mg/dL (0.5-1.5); Est. Creatinine Clearance* 43.07; Estimated Glomerular Filt Rate 97 ml/min; Glucose* 123 mg/dL (60-115)
--- NOTE | 2024-07-08 07:52 | PC.NURSE ---
Shift note ([id number]): Patient pleasant and alert. Remained in bed this shift. Held 2100 Losartan per parameters for BP of 101/54. BP later in shift was 112/64. Restful night vitals for 0300 VS. [employer] patent. Denied pain. ?
[2024-07-08 08:00] VITALS: BP 129/63; PULSE 74; RESP 18; TEMP 36.6; O2SAT 97
--- NOTE | 2024-07-08 08:28 | PM.DS1 ---
DS: Providers Provider Date Seen: 07/08/24 Date of admission: 07/03/24 16:51 Primary care physician: Mary Espinoza MD Admitting Clinician: Tessie Griffith MD Consults: OT, PT, SW, [employer] HELPER Attending Physician on discharge: Becca May MD Date of Discharge: 07/08/24 DS: Diagnosis Discharge Diagnosis (1) Weakness: Status: Acute Problem details: - ddx: UTI (recent E Coli, currently + E Faecalis), COVID (relapse vs long covid), worsening neurodegenerative process (Parkinsons/other), new acute neurological process - therapies followed during stay, TCU recommended - multiple labs still pending upon discharge (2) Neuro-degenerative disorders: Status: Inactive Problem details: - Parkinson's progression vs other vs secondary diagnosis - Tele Neurology (Dr. Maria) followed during stay - reassuring brain MRI on 07/04, head and neck MRA also without acute abnormality - deferred LP given improvement in WBC and afebrile status (3) Parkinson's disease: Status: Inactive Problem details: - saw Dr. Weir [facility] Neurology 05/29 (Sinemet trial started then) - increased to QID on 07/03/24, increasing again to 2 tabs Qam and 1 tab for other 3 doses on 07/07 (can continue to increase by 1 tab every 2-3 days) - Dr. Maria following during stay, consider other neurological diseases - mild visual hallucinations noted 07/04 without agitation: prn Seroquel ordered (did not need this) (4) PFO (patent foramen ovale): Status: Inactive Problem details: - noted on 07/04 TTE, new diagnosis - reviewed with Dr. Cardenas of Cardiology 07/05, no need for urgent intervention or anticoagulation (negative BLE ultrasounds) Final Impressions: 1. LVEF estimate 60-65%. Normal LV size and wall thickness. 2. Mildly dilated RV with preserved global function. 3. No significant valvular abnormalities. 4. Normal RAP estimate. 5. Atrial septal aneurysm with significant ejbsu-dk-ehww shunt at rest and with Valsalva [Grade V PFO]. Consider ANDRES for further evaluation. (5) Difficulty in swallowing: Status: Inactive Problem details: - bedside swallow with RN; speech therapy following - barium swallow 07/05: Early spillage noted, no aspiration/penetration, no obstruction/diverticulum, normal retroversion of the epiglottis, normal motion posterior tongue (6) Monocytosis: Status: Inactive Problem details: - monocytosis of undetermined significance seen on peripheral smear, 04/28, 06/28 - query MDS, perhaps related to current acute illness/neurological changes - paraneoplastic panel pending (7) COVID: Status: Resolved Problem details: - 06/21/24 symptom onset, did not require any COVID specific therapies at that time - currently stable on RA, asymptomatic, reassuring CXR 07/03/24 (8) Type 2 diabetes mellitus: Status: Inactive Problem details: - outpatient Metformin (on hold early on admission, restarting 07/06/24) - bedside glucose monitoring (BGs 112-203); SSI (9) Normocytic anemia: Status: Inactive Problem details: - peripheral smear done 04/28, probably anemia of chronic disease versus combination of B12 with iron deficiency (10) Mild cognitive impairment: Status: Inactive Problem details: - Minicog 0/5 04/28 (11) Hypertension: Status: Inactive Problem details: - continued home losartan (12) Anxiety: Status: Inactive Problem details: - continued home escitalopram (13) Hyperlipidemia: Status: Inactive Problem details: - continued statin DS: Summary Hospital Course Hospital Course: Sumaya was admitted to the hospital on 07/03 for an acute neurologic change and increased weakness in the setting of known Parkinson's disease. Prior to admission: - Had a left reverse shoulder arthroplasty on 06/15/24, recovery complicated by COVID infection - Hospitalized for an E Coli UTI 06/27-06/28, was baseline for physical abilities at that time - noted progressive weakness (requiring 2 person assist) in the days prior to admission Notable findings during stay: 1. IMAGING - Brain MRI revealed no acute infarction, mild chronic microvascular ischemic changes, moderate generalized volume loss - head and neck MRA reassuring, no acute vasculitis - TTE revealed grade V PFO - negative BLE ultrasounds - barium swallow with speech therapy: Early spillage noted, no aspiration/penetration, no obstruction/diverticulum, normal retroversion of the epiglottis, normal motion posterior tongue 2. ID - urine culture + for >100k Enterococcus faecalis, also <100k staph haemolytica, klebsiella: given IV Ertapenem 07/05, transitioned to oral Levaquin 07/06 and will d/c on this. Repeat Urine cx 7d post abx therapy - recent E Coli UTI (06/27) - recent COVID (mid-June), no hypoxia, reassuring CXR during stay 3. NEUROLOGY - followed by Dr. Maria of Neurology; query alternative neurologic process (Lewy body, FTD) vs UTI vs infectious/malignant process. Multiple labs pending upon d/c - continued to have L sided neglect during stay with poor truncal support - intermittent visual hallucinations, no agitation, prn Seroquel ordered (not needed) Patient medically stable for discharge on 07/08/24 to TCU in [place]. Time Spent with Patient Time attestation: Total time spent providing and/or coordinating discharge services: Time spent: Greater than 30 minutes Specific discharge activities: medication reconciliation, multidisciplinary team discussion, discharge paperwork Exam Narrative: Exam Narrative: GEN: Alert and answering questions appropriately, sitting up in bed with pillows for truncal support HEENT: EOMIs bilaterally, no scleral icterus CV: RRR, No concerning murmurs R: LCTA bilaterally without concerning wheezing Ext: wwp, no concerning edema Skin: No concerning skin lesions or rashes on exposed skin Neuro: Feeding self, no concerning tremor, no facial droop, gait not observed Psych: Appropriate Const: Vital Signs, click to edit/add: Vital Signs - 24 hr 07/07/24 11:14 07/07/24 15:30 07/07/24 19:00 Temperature 98.6 F 98.0 F 98.3 F Pulse Rate [Pulse Oximeter] 86 79 86 Respiratory Rate 16 18 Blood Pressure [Ri t Arm] 123/89 116/70 101/54 L Pulse Oximetry 95 95 94 Oxygen Delivery Me thod Room Air Room Air Room Air 07/07/24 22:06 07/08/24 08:00 Temperature 98.6 F 97.8 F Pulse Rate [Pulse Oximeter] 83 74 Respiratory Rate 21 18 Blood Pressure [Ri ght Arm] 112/64 129/63 Pulse Oximetry 94 97 Oxygen Delivery Me thod Room Air Room Air DS: Data Data Completed and Pending Completed studies during hospitalization: Procedures Replacement of Left Shoulder Joint with Reverse Ball and Socket Synthetic Substitute, Open Approach (06/16/24) Labs on day of discharge: Labs from last 24 hours 07/08/24 07/07/24 05:52 13:05 WBC 6.19 RBC 3.38 L Hgb 9.1 L Hct 29.1 L MCV 86 MCH 27 MCHC 31 L RDW Coeff of Evaristo 16.5 H Plt Count 402 Neut % (Auto) 44.6 Lymph % (Auto) 26.2 Richardson % (Auto) 27.3 H Eos % (Auto) 0.8 Baso % (Auto) 0.3 Neut # (Auto) 2.76 Lymph # (Auto) 1.62 Richardson # (Auto) 1.70 H Eos # (Auto) 0.05 Baso # (Auto) 0.02 Abs Immat Gran (auto) 0.05 Imm/Tot Granulo (auto) 0.8 Sodium 137 Potassium 4.1 Chloride 103 Carbon Dioxide 28 Anion Gap 6 L BUN 23 Creatinine 0.5 Estimated Creat Clear 43.07 Estimated GFR 97 Glucose 123 H Calcium 8.6 SARS-CoV-2 Ag (Rapid) Negative Discharge Plan Discharge Disposition: [facility] Date of Admission: 07/03/24 16:51 Attending Provider on Discharge: Becca May Consulting Providers: Mary Maria Primary Care Provider: Mary Espinoza Condition: Improved Anticipated Discharge Date/Time: 07/07/24 12:33 Discharge Medications: New polyethylene glycol 3350 [Miralax] 17 gram Powder In Packet 17 g PO DAILY PRNQty: 30 0RF sennosides-docusate sodium [Stool Softener-Laxative] 8.6-50 mg Tablet 1 tab PO BID Qty: 60 0RF quetiapine 25 mg Tablet 25 mg PO QHS PRNQty: 30 0RF Rx Instructions: prn hallucinations sennosides-docusate sodium [Stool Softener-Laxative] 8.6-50 mg Tablet 1 tab PO DAILY PRNQty: 30 0RF bisacodyl 10 mg Suppository 10 mg AK DAILY PRNQty: 30 0RF carbidopa-levodopa 25-100 mg Tablet 1 tab PO DAILY Qty: 30 0RF Rx Instructions: additional tab to take with first dose of the day (take 2 tabs in morning, 1 tab for the rest of the QID dosing - total of 5 tabs/day) polyethylene glycol 3350 [Miralax] 17 gram Powder In Packet 17 g PO DAILY Qty: 30 0RF levofloxacin 250 mg Tablet 250 mg PO Q24H Qty: 10 0RF Continued albuterol sulfate 90 mcg/actuation HFA aerosol inhaler 1 inh inhalation Q4H PRN ondansetron 4 mg tablet,disintegrating 4 mg PO TID-QID PRN (Reason: nausea and vomiting) Qty: 30 1RF metformin 500 mg tablet extended release 24 hr 2,000 mg PO HS escitalopram oxalate 20 mg tablet 20 mg PO DAILY simvastatin 20 mg tablet 20 mg PO HS alendronate 70 mg tablet 70 mg PO MO carbidopa-levodopa 25-100 mg tablet 1 tab PO TID Vitron-C 65 mg iron- 125 mg tablet,delayed release (DR/EC) 1 tab PO DAILY losartan 100 mg tablet 100 mg PO HS Qty: 90 3RF acetaminophen 650 mg tablet extended release 1,300 mg PO Q12H Qty: 120 0RF mecobalamin (vitamin B12) [B12 Active] 1,000 mcg tablet,chewable 1,000 mcg PO DAILY Qty: 30 0RF folic acid 1 mg tablet 1 mg PO DAILY Qty: 30 0RF Discharge Orders: Discharge Order (Routine); Ordered 07/08/24 Ordered By: Becca May Additional Instructions: Sinemet was increased from 4-5 tabs/day on 07/07/24. Can continue to increase by 1 tab every 4-5 days as needed. Complete course of Levaquin for UTI. On Thursday, 07/25: Repeat Urine culture, CBC, BMP Outpatient f/u with Neurology. We will send lab pending lab results to Dr. Espinoza and daughter October. Activity Level: Activity as Tolerated Discharge Diet: Regular Dysphagia Food: Level 6- Soft & Bite size Follow Up Appointments: Mary Espinoza MD [Primary Care Provider] - Forms: [facility] Info Instructions Admit to: SNF Discharge Potential: Fair Length of Stay: 30-90 days Can use facility standing orders?: Yes Code Status: Full Code Rehab Potential: Fair Therapy: Physical Therapy, Occupational Therapy and Speech Therapy Therapy Orders: Evaluate and Treat Oxygen: No Urinary Catheter: No Next INR: n/a Lab Orders: July 25: urine culture, CBC, BMP Orders are good >30 days: Yes Signature: Becca May MD
[2024-07-08] MEDS: polyethylene glycoL 3350 17 GM PACK PO (08:40)
[2024-07-08] MEDS: CARBIDOPA-LEVODOPA 25-100 TABLET 1 TAB PO ×2 (08:40→08:41)
[2024-07-08] MEDS: SENNOSIDES/DOCUSATE TABLET 1 TAB PO (08:40)
[2024-07-08] MEDS: FOLIC ACID 1 MG TABLET PO (08:40)
[2024-07-08] MEDS: SODIUM CHLORIDE 0.9 % (FLUSH) 10 ML SYRINGE 5 ML IVF (08:40)
[2024-07-08] MEDS: ESCITALOPRAM 10 MG TABLET 20 MG PO (08:41)
--- NOTE | 2024-07-08 09:29 | PC.SOCIAL ---
Discharge plan: Late Entry: On 07/07/23, pt was accepted to [facility] for admit to a private room with private bathroom for admit on 07/08/24. Met with pt and dtr who are aware and agree with this plan. Dtr is requesting transport by EMS. Per dtr, this has been covered by pt's insurance in the past. If not covered by insurance, dtr states she agrees for pt to pay for the transport if needed with the estimate of about $300 dollars for transport. Called and confirmed with Sandy at [facility] that pt is accepting bed for admit 07/08/24 and is expected to be picked up by EMS at 10:00am. skid road worker to follow up as needed.
--- NOTE | 2024-07-08 12:13 | PC.NURSE ---
Discharge: Patient pleasant and cooperative, A&O. VSS, afebrile. SpO2 maintained above 90% on RA. Tolerating regular diet. IV removed with tip intact. Discharged via non emergent EMS
--- NOTE | 2024-07-08 16:33 | PC.SOCIAL ---
Discharge planning/late entry: On 07/07/2024, pharmaceutical worker mistakenly misunderstood an email that was sent by [facility], thinking that the pt had been accepted, when she had not. pharmaceutical worker told the family that pt had been accepted to [facility] for short-term rehab, but then had to go an tell the family that the pt was not accepted and that [facility] actually did not have anymore female beds available this week and that they would reassess on Thursday. Due to pt being medically stable and ready for discharge, this social media designer explained that another facility would need to be considered. Pt and her family wanted social work staff to check with [facility] on where they were at with reviewing/assessing pt's referral. pharmaceutical worker did email Sandy with [facility] that other placement had been found, but will reach out to her and let her know that the pt still needs placement. Social work to follow-up as needed.
[2024-08-15 11:37] LABS: Albumin 3.19; Alpha 1 Globulin 0.47; Total Protein, Serum 6.4
[2024-08-15 11:38] LABS: Alpha 2 Globulin 1.12; SPEP/IFE Interpretation SEE SCANNED RESULTS
[2024-08-15 11:39] LABS: EER Protein Electrophoresis SEE SCANNED RESULTS
== END 2024-07-08 10:10 | DRG 56 ==
LOC: ED 13:55 → MEDSURG 16:19
PROVIDERS: Family Medicine; Admitting Provider Family Medicine; Emergency Provider Family Medicine; PCP Internal Medicine; Visit Provider Family Medicine
DX: G20.A1 Parkinson's disease without dyskinesia, without mention of fluctuations (principal); U07.1 COVID-19; Q21.12 Patent foramen ovale; Q21.19 Other specified atrial septal defect; N39.0 Urinary tract infection, site not specified; B95.7 Other staphylococcus as the cause of diseases classified elsewhere; B96.1 Klebsiella pneumoniae [K. pneumoniae] as the cause of diseases classified elsewhere; B95.2 Enterococcus as the cause of diseases classified elsewhere; G31.9 Degenerative disease of nervous system, unspecified; E11.9 Type 2 diabetes mellitus without complications; R44.1 Visual hallucinations; R13.10 Dysphagia, unspecified; I10 Essential (primary) hypertension; R53.1 Weakness; Z91.81 History of falling; Z79.84 Long term (current) use of oral hypoglycemic drugs; D64.9 Anemia, unspecified; D72.821 Monocytosis (symptomatic); M48.26 Kissing spine, lumbar region; M51.369 Other intervertebral disc degeneration, 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 or lower extremity pain; M81.0 Age-related osteoporosis without current pathological fracture; Z86.39 Personal history of other endocrine, nutritional and metabolic disease; F41.9 Anxiety disorder, unspecified; F32.A Depression, unspecified; Z96.612 Presence of left artificial shoulder joint; E78.5 Hyperlipidemia, unspecified
CPT/HCPCS: 36415; 70450; 70544; 70549; 70551; 71045; 74177; 74230; 80048; 80053; 81001; 82962; 83605; 83735; 83880; 84145; 84165; 84182; 84484; 85025; 85651; 86038; 86140; 86255; 86376; 86618; 87086; 87186; 87426; 87631; 92526; 92610; 92611; 93005; 93306; 93970; 94761; 97110; 97162; 97166; 97530; 97535; 99284; 99285; G0427; A9270; A9575; J1335; J1650; J7030; J7050; Q9967

== ENCOUNTER 2024-07-08 10:24 | Outpatient (CLI) | payer MEDICARE, SELFPAY | END 2024-07-08 10:25 | disposition home or self-care (01) | LOC: AMB 07-18 04:25 | PROVIDERS: PCP Internal Medicine; Visit Provider Internal Medicine | DX: R53.1 Weakness (principal) | CPT/HCPCS: A0425; A0428 ==

== ENCOUNTER 2024-08-16 12:05 | Outpatient (CLI) | payer MEDICARE, SELFPAY | END 2024-08-16 12:06 | disposition home or self-care (01) | PROVIDERS: PCP Internal Medicine; Visit Provider Internal Medicine | DX: I10 Essential (primary) hypertension (principal); D64.9 Anemia, unspecified; E53.8 Deficiency of other specified B group vitamins; D72.821 Monocytosis (symptomatic) | CPT/HCPCS: 82607; 82668; 82728; 84207 ==

== ENCOUNTER 2024-09-02 09:39 | Outpatient (CLI) | payer MEDICARE, SELFPAY ==
[2024-09-02 09:51] VITALS: BP 102/58; PULSE 88; RESP 16; TEMP 36.9; O2SAT 94
[2024-09-02 10:41] LABS: Basophils Absolute Auto 0.01 K/uL (0.00-0.30); Basophils Percent Auto 0.1 % (0.0-3.0); Eosinophils Absolute Auto 0.04 K/uL (0.00-0.50); Eosinophils Percent Auto 0.5 % (0.0-7.0); Immature Granulocytes Abs Auto 0.05 K/uL (0.00-0.30); Immature Granulocytes Pct Auto 0.7 %; Immature Reticulocyte Fraction 11.7 % (3.0-15.9); Lymphocytes Percent Auto 19.3 % (20-44); Mean Corpuscular HGB Conc 31 gm/dL (32-36); Mean Corpuscular Hemoglobin 28 pg (26-34); Mean Corpuscular Volume 91 fL (80-100); Monocytes Percent Auto 33.5 % (0.0-11.0); Neutrophils Absolute Auto 3.48 K/uL (1.7-7.0); Neutrophils Percent Auto 45.9 % (42.0-72.0); Platelet Count* 114 K/uL (140-440); RDW Coefficient of Variation % 18.1 % (11.5-15.5); Red Blood Count 3.52 m/uL (4.00-5.20); Reticulocyte Hemoglobin Equivi 30.1 pg (29.0-35.0); Reticulocyte Percent 1.6 % (0.5-2.0); Reticulocytes Absolute 0.06 # (0.03-0.08); White Blood Count* 7.58 K/uL (4.50-11.00)
[2024-09-02 10:52] VITALS: BP 123/61; PULSE 91; RESP 16; O2SAT 98
[2024-09-02 11:15] LABS: Slide Review Reflex Yes
[2024-09-02 11:43] LABS: Slide Review Acceptable Review (Acceptable)
== END 2024-09-02 10:57 | disposition home or self-care (01) ==
PROVIDERS: PCP Internal Medicine; Visit Provider Internal Medicine Hematology & Oncology
DX: D72.821 Monocytosis (symptomatic) (principal)
CPT/HCPCS: 36415; 38221; 81450; 85025; 85045; 88184; 88185; 88237; 88264; 88305; 88311; 88313; 88342; 88360; J1644; J2003

== ENCOUNTER 2024-09-06 11:00 | Outpatient (CLI) | payer MEDICARE, SELFPAY | END 2024-09-06 11:01 | disposition home or self-care (01) | LOC: NFLDREF 09-07 03:22 | PROVIDERS: PCP Internal Medicine; Referring Provider Internal Medicine; Visit Provider Internal Medicine | DX: R30.0 Dysuria (principal); N39.0 Urinary tract infection, site not specified | CPT/HCPCS: 87086; 87186 ==

== ENCOUNTER 2024-10-10 02:35 | Outpatient (CLI) | payer MEDICARE, SELFPAY | END 2024-10-10 02:36 | disposition home or self-care (01) | LOC: AMB 10-11 13:36 | PROVIDERS: PCP Internal Medicine; Visit Provider Family Medicine | DX: S09.90XA Unspecified injury of head, initial encounter (principal); R42 Dizziness and giddiness; W18.30XA Fall on same level, unspecified, initial encounter; Y92.009 Unspecified place in unspecified non-institutional (private) residence as the place of occurrence of the external cause | CPT/HCPCS: A0425; A0427 ==

== ENCOUNTER 2024-10-10 03:19 | Emergency (ER) | payer MEDICARE, SELFPAY ==
--- OUTSIDE RECORDS SUMMARY | 2024-10-10 03:22 | XMS_ITS | Continuity of Care Document ---
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 07/08/2024 Active Essential (primary) hypertension I10 07/08/2024 Active Shortness of breath R06.02 07/08/2024 A ctive Nausea R11.0 07/08/2024 Active Dysphagia, unspecified R13.10 07/08/2024 Active Anemia, unspecified D64.9 07/11/2024 A ctive Degenerative disease of nervous system, 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 07/08/2024 Active Parkinsonism, unspecified G20.C 07/08/2024 Active Weakness R53.1 07/08/2024 Active Depression, unspecified F32.A 07/08/2024 Active Anxiety disorder, unspecified F41.9 07/08/2024 Active Hyperlipidemia, unspecified E78.5 07/08/2024 Active Mild cognitive impairment, so stated G31.84 07/08/2024 Act mario Type 2 diabetes mellitus without complications E11.9 07/08/2024 Act mario Age-related osteoporosis without current pathological fracture M81.0 07/08/2024 Act mario Other intervertebral disc degeneration, 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 or lower extremity pain 07/08/2024 Active Vitamin B12 deficiency anemia, unspecified D51.9 07/08/2024 Activ e Allergic rhinitis, unspecified J30.9 07/08/2024 Active Anemia, unspecified D64.9 07/08/2024 A ctive Results Test Value / Unit Interpretation Reference Ran Blood chemistry[[id number]] Glucose [Mass/volume] in Ser um or Plasma [2345-7] 102 mg/dL N Blood chemistry[[id number]] Glucose [Mass/volume] in Ser um or Plasma [2345-7] 120 mg/dL N Blood chemistry[] Glucose [Mass/volume] in Ser um or Plasma [2345-7] 99 mg/dL N Blood chemistry[] Glucose [Mass/volume] in Ser um or Plasma [2345-7] 170 mg/dL N Blood chemistry[] Glucose [Mass/volume] in Ser um or Plasma [2345-7] 108 mg/dL N Blood chemistry[] Glucose [Mass/volume] in Ser um or Plasma [2345-7] 133 mg/dL N Blood chemistry[] Glucose [Mass/volume] in Ser um or Plasma [2345-7] 106 mg/dL N Blood chemistry[] Glucose [Mass/volume] in Ser um or Plasma [2345-7] 125 mg/dL N Tuberculosis reaction wheal[ 52862-8] Tuberculosis reaction wheal [39097-7] 0 mm NEG Blood chemistry[] Glucose [Mass/volume] in Ser um or Plasma [2345-7] 112 mg/dL N Blood chemistry[[id number]] Glucose [Mass/volume] in Ser um or Plasma [2345-7] 89 mg/dL N Blood chemistry[] Glucose [Mass/volume] in Ser um or Plasma [2345-7] 98 mg/dL N Blood chemistry[[id number]] Glucose [Mass/volume] in Ser um or Plasma [2345-7] 99 mg/dL N Blood chemistry[[id number]] Glucose [Mass/volume] in Ser um or Plasma [2345-7] 113 mg/dL N Tuberculosis reaction wheal[ 38608-5] Tuberculosis reaction wheal [01547-7] See note TB test Blood chemistry[] Glucose [Mass/volume] in Ser um or Plasma [2345-7] 155 mg/dL N Blood chemistry[[id number]] Glucose [Mass/volume] in Ser um or Plasma [2345-7] 104 mg/dL N Blood chemistry[[id number]] Glucose [Mass/volume] in Ser um or Plasma [2345-7] 146 mg/dL N Blood chemistry[] Glucose [Mass/volume] in Ser um or Plasma [2345-7] 102 mg/dL N Blood chemistry[] Glucose [Mass/volume] in Ser um or Plasma [2345-7] 108 mg/dL N Blood chemistry[] Glucose [Mass/volume] in Ser um or Plasma [2345-7] 180 mg/dL N Blood chemistry[] Glucose [Mass/volume] in Ser um or Plasma [2345-7] 173 mg/dL N Blood chemistry[] Glucose [Mass/volume] in Ser um or Plasma [2345-7] 104 mg/dL N Blood chemistry[] Glucose [Mass/volume] in Ser um or Plasma [2345-7] 100 mg/dL N Blood chemistry[] Glucose [Mass/volume] in Ser um or Plasma [2345-7] 104 mg/dL N Blood chemistry[] Glucose [Mass/volume] in Ser um or Plasma [2345-7] 205 mg/dL N Blood chemistry[] Glucose [Mass/volume] in Ser um or Plasma [2345-7] 106 mg/dL N Blood chemistry[] Glucose [Mass/volume] in Ser um or Plasma [2345-7] 167 mg/dL N Blood chemistry[] Glucose [Mass/volume] in Ser um or Plasma [2345-7] 111 mg/dL N Blood chemistry[] Glucose [Mass/volume] in Ser um or Plasma [2345-7] 187 mg/dL N Blood chemistry[[id number]] Glucose [Mass/volume] in Ser um or Plasma [2345-7] 115 mg/dL N Blood chemistry[[id number]] Glucose [Mass/volume] in Ser um or Plasma [2345-7] 166 mg/dL N Blood chemistry[] Glucose [Mass/volume] in Ser um or Plasma [2345-7] 122 mg/dL N Blood chemistry[[id number]] Glucose [Mass/volume] in Ser um or Plasma [2345-7] 125 mg/dL N Blood chemistry[[id number]] Glucose [Mass/volume] in Ser um or Plasma [2345-7] 131 mg/dL N Blood chemistry[[id number]] Glucose [Mass/volume] in Ser um or Plasma [2345-7] 192 mg/dL N Blood chemistry[[id number]] Glucose [Mass/volume] in Ser um or Plasma [2345-7] 124 mg/dL N Blood chemistry[[id number]] Glucose [Mass/volume] in Ser um or Plasma [2345-7] 167 mg/dL N Tuberculosis reaction wheal[ 71523-3] Tuberculosis reaction wheal [77571-3] 0 mm NEG Allergies, adverse reactions, alerts Substance Reaction Date Status Type No allergies have been recorded Non Drug Immunizations Vaccine Route Date Status COVID-19 Vaccine Unassigned Route of Administration Completed COVID-19 Vaccine Unassigned Route of Administration Completed COVID-19 Vaccine Unassigned Route of Administration Completed COVID-19 Vaccine Unassigned Route of Administration Completed COVID-19 Vaccine Unassigned Route of Administration Completed COVID-19 Vaccine Unassigned Route of Administration Completed COVID-19 Vaccine Unassigned Route of Administration Completed COVID-19 Vaccine Unassigned Route of Administration Completed Hepatitis Vaccine Unassigned Route of Administration 0 08/11/1990 Completed Hepatitis Vaccine Unassigned Route of Administration 0 02/01/1990 Completed Hepatitis Vaccine Unassigned Route of Administration 0 12/07/1989 Completed Pneumococcal Vaccine Unassigned Route of Administratio n 08/19/2016 Completed Pneumococcal Vaccine Unassigned Route of Administratio n 07/13/2013 Completed Zoster Vaccine Unassigned Route of Administration 05/07 Completed Medications Medication Instructions Route Dosage Frequency Start Date Stop Date Indications Status acetaminophen 325 mg tablet (acetaminophen ) 1,300 mg = (4 tabs), oral, Every 12 Hours, Max acetaminophen dose 4,000mg in 24hrs. oral 1.0 12.0 h 07/29 Active albuterol sulfate 90 mcg/actuation HFA aerosol inhaler (albuterol sulfate) 1 inhalation, inhalation, Every 4 Hours - PRN, N.O. Non-: Pharmacological 1 = Focus on relaxed deep breathing through the nose 2 = Reposition 3 = Elevate the HOB 4 = Encourage Incentive Spirometer if applicable. inhalati on 1.0 4.0 h 07/29 Shortness of breath Active alendronate 70 mg tablet (alendronate) 70 mg, oral, Once a Day on Mon oral 1.0 1.0 d 07/11 Active Aplisol (tuberculin ppd) 5 tub. unit /0.1 mL solution (Aplisol (tuberculin ppd)) 0.1 ml, intradermal, Once A Day Every 14 Days, Document Lot #, Expiration, and Commercial Loan Closer in the Preventive Health Module. intrader mal 1.0 1.0 d 07/23 Active bisacodyl 10 mg suppository (bisacodyl) 10 mg, rectal, Once A Day - PRN, N.O. Non-Pharmacolog ical Interventions 1=Additional fluids 2=Prune Juice 3=Increase exercise rectal 1.0 1.0 d 07/29 Constipation, unspecified Active carbidopa-levo dopa 25-100 mg tablet (carbidopa-lev odopa) 1 tablet, oral, Three Times A Day oral 1.0 8.0 h 07/29 Active cyanocobalamin (vitamin B-12) 1,000 mcg tablet (cyanocobalami n (vitamin B-12)) 1,000 mcg, oral, Once A Day oral 1.0 1.0 d 07/29 Active carbidopa-levo dopa 25-100 mg tablet (carbidopa-lev odopa) 2 tablets, oral, Once A Day oral 1.0 1.0 d 07/29 Active escitalopram oxalate 20 mg tablet (escitalopram oxalate) 20 mg, oral, Once A Day, Monitor for side effects. Notify MD of concerns. oral 1.0 1.0 d 07/29 Other specified anxiety disorders Active levofloxacin 250 mg tablet (levofloxacin) 250 mg, oral, Once A Day oral 1.0 1.0 d 07/17 Urinary tract infection, site not specified Active metformin 500 mg tablet (metformin) 2,000 mg, oral, At Bedtime oral 1.0 07/29 Active losartan 100 mg tablet (losartan) 100 mg, oral, At Bedtime oral 1.0 07/11 Essential (primary) hypertension Active Miralax (polyethylene glycol 3350) 17 gram/dose powder (Miralax (polyethylene glycol 3350)) 17 g, oral, Once A Day - PRN, N.O. Non-Pharmacolog ical Interventions 1=Additional fluids 2=Prune Juice 3=Increase exercise oral 1.0 1.0 d 07/20 Constipation, unspecified Active ondansetron 4 mg tablet,disinte grating (ondansetron) 4 mg, oral, Three Times A Day - PRN, for nausea/vomiting . N.O. Non-Pharmacolog ical Interventions: 1=Offer lemon [place] soda 2=Offer crackers 3=Repositioning 4=Elevate head of bed oral 1.0 8.0 h 07/29 Nausea Active quetiapine 25 mg tablet (quetiapine) 25 mg, oral, At Bedtime - PRN, Monitor for side effects. Notify MD of concerns.N.O. Non-: Pharmacological Interventions 1=Warm blanket 2=Re-position 3=Ice pack 4=Warm pack oral 1.0 07/08 Hallucination s, unspecified Active Senna-S (sennosides-do cusate sodium) 8.6-50 mg tablet (Senna-S (sennosides-do cusate sodium)) 1 tablet, oral, Twice A Day oral 1.0 12.0 h 07/13 Constipation, unspecified Active Senna-S (sennosides-do cusate sodium) 8.6-50 mg tablet (Senna-S (sennosides-do cusate sodium)) 1 tablet, oral, Once A Day - PRN, N.O. Non-Pharmacolog ical Interventions 1=Additional fluids 2=Prune Juice 3=Increase exercise oral 1.0 1.0 d 07/13 Active simvastatin 20 mg tablet (simvastatin) 20 mg, oral, At Bedtime oral 1.0 07/29 Active Vitron-C (iron,carbonyl -vitamin c) 65 mg iron- 125 mg tablet,delayed release (DR/EC) (Vitron-C (iron,carbonyl -vitamin c)) 1 tablet, oral, Once A Day oral 1.0 1.0 d 07/29 Active levofloxacin 250 mg tablet (levofloxacin) 250 mg, oral, Once A Day oral 1.0 1.0 d 07/08 Urinary tract infection, site not specified Active quetiapine 25 mg tablet (quetiapine) 25 mg, oral, At Bedtime - PRN, Monitor for side effects. Notify MD of concerns.N.O. Non-: Pharmacological Interventions 1=Warm blanket 2=Re-position 3=Ice pack 4=Warm pack oral 1.0 07/21 Hallucination s, unspecified Active folic acid 1 mg tablet (folic acid) 1 mg, oral, Once A Day oral 1.0 1.0 d 07/29 Active Miralax (polyethylene glycol 3350) 17 gram/dose powder (Miralax (polyethylene glycol 3350)) 17 g, oral, Once A Day oral 1.0 1.0 d 07/08 Constipation, unspecified Active ferrous sulfate 325 mg (65 mg iron) tablet (ferrous sulfate) 325 mg, oral, Once A Day oral 1.0 1.0 d 07/29 Anemia, unspecified Active alendronate 70 mg tablet (alendronate) 70 mg, oral, Once a Day on Thu, Administer at least 30 minutes before first food, drink or medications of the day with a full glass of water. Remain upright for at least 30 minutes after taking oral 1.0 1.0 d 07/29 Active losartan 50 mg tablet (losartan) 50 mg, oral, At Bedtime, Hold if SBP <110 oral 1.0 07/21 Essential (primary) hypertension Active Senna-S (sennosides-do cusate sodium) 8.6-50 mg tablet (Senna-S (sennosides-do cusate sodium)) 1 tab, oral, Once A Day - PRN oral 1.0 1.0 d 07/29 Active Vitamin B6 50mg tablet (Vitamin B6) 50 mg, oral, Once A Day oral 1.0 1.0 d 07/29 Active quetiapine 25 mg tablet (quetiapine) 25 mg, oral, At Bedtime - PRN, Monitor for side effects. Notify MD of concerns.N.O. Non-: Pharmacological Interventions 1=Warm blanket 2=Re-position 3=Ice pack 4=Warm pack oral 1.0 07/18 Hallucination s, unspecified Active Miralax (polyethylene glycol 3350) 17 gram/dose powder (Miralax (polyethylene glycol 3350)) 17 g, oral, Once A Day oral 1.0 1.0 d 07/29 Constipation, unspecified Active losartan 25 mg tablet (losartan) 25 mg, oral, Once A Day, Hold if SBP <110 oral 1.0 1.0 d 07/29 Essential (primary) hypertension Active doxycycline hyclate 100 mg capsule (doxycycline hyclate) 100 mg, oral, Twice A Day oral 1.0 12.0 h 08/04 Urinary tract infection, site not specified Active Aplisol (tuberculin ppd) 5 tub. unit /0.1 mL solution (Aplisol (tuberculin ppd)) 0.1 ml, intradermal, Once A Day Every 14 Days, Document Lot #, Expiration, and Commercial Loan Closer in the Preventive Health Module. intrader mal 1.0 1.0 d 07/29 Active doxycycline hyclate 100 mg capsule (doxycycline hyclate) 100 mg, oral, Twice A Day oral 1.0 12.0 h 07/29 Urinary tract infection, site not specified Active levofloxacin 250 mg tablet (levofloxacin) 250 mg, oral, Once A Day oral 1.0 1.0 d 07/29 Urinary tract infection, site not specified Active Vital Signs Date Vital Result Comment 07/08/2024 12:54 PM Temperature 98.7 [degF] Oxygen Saturation 96 % Respiratory Rate 16 /min Heart Rate 79 /min Blood Pressure Systolic 101 mm[Hg] Blood Pressure Diastolic 55 mm[Hg] 07/08/2024 04:27 PM Temperature 98.9 [degF] Oxygen Saturation 98 % Respiratory Rate 18 /min Heart Rate 75 /min Blood Pressure Systolic 119 mm[Hg] Blood Pressure Diastolic 63 mm[Hg] 07/08/2024 07:25 PM Temperature 98.7 [degF] Oxygen Saturation 96 % Respiratory Rate 20 /min Heart Rate 89 /min Blood Pressure Systolic 114 mm[Hg] Blood Pressure Diastolic 57 mm[Hg] 07/09/2024 12:57 AM Temperature 98.9 [degF] Oxygen Saturation 97 % Respiratory Rate 20 /min Heart Rate 81 /min Blood Pressure Systolic 90 mm[Hg] Blood Pressure Diastolic 58 mm[Hg] 07/09/2024 04:21 AM Temperature 98.1 [degF] Oxygen Saturation 96 % Respiratory Rate 18 /min Heart Rate 81 /min Blood Pressure Systolic 116 mm[Hg] Blood Pressure Diastolic 62 mm[Hg] 07/09/2024 10:36 AM Respiratory Rate 16 /min Heart Rate 87 /min 07/09/2024 10:22 AM Temperature 97.9 [degF] Oxygen Saturation 95 % Respiratory Rate 16 /min Heart Rate 87 /min Blood Pressure Systolic 98 mm[Hg] Blood Pressure Diastolic 57 mm[Hg] 07/09/2024 10:23 AM Body mass index (BMI) [Ratio] 0.0 kg/m2 Body Weight 144 [lb_av] Body Mass Index 23.96 kg/m2 07/09/2024 01:34 PM Body Height 65 [in_us] 07/09/2024 03:28 PM Temperature 98.1 [degF] Oxygen Saturation 91 % Respiratory Rate 16 /min Heart Rate 86 /min Blood Pressure Systolic 98 mm[Hg] Blood Pressure Diastolic 63 mm[Hg] 07/09/2024 06:59 PM Temperature 98.1 [degF] Oxygen Saturation 92 % Respiratory Rate 16 /min Heart Rate 90 /min Blood Pressure Systolic 105 mm[Hg] Blood Pressure Diastolic 59 mm[Hg] 07/10/2024 12:35 AM Temperature 97.9 [degF] Oxygen Saturation 97 % Respiratory Rate 17 /min Heart Rate 86 /min Blood Pressure Systolic 108 mm[Hg] Blood Pressure Diastolic 50 mm[Hg] 07/10/2024 10:29 AM Temperature 98.9 [degF] Oxygen Saturation 96 % Respiratory Rate 17 /min Heart Rate 86 /min Blood Pressure Systolic 102 mm[Hg] Blood Pressure Diastolic 68 mm[Hg] 07/10/2024 10:18 AM Body Weight 145 [lb_av] Body Mass Index 24.13 kg/m2 07/11/2024 10:29 AM Temperature 98 [degF] Oxygen Saturation 95 % Respiratory Rate 16 /min Heart Rate 70 /min Blood Pressure Systolic 104 mm[Hg] Blood Pressure Diastolic 64 mm[Hg] Body Weight 145 [lb_av] Body Mass Index 24.13 kg/m2 07/11/2024 07:58 PM Blood Pressure Systolic 109 mm[Hg] Blood Pressure Diastolic 64 mm[Hg] 07/12/2024 09:36 AM Temperature 98.5 [degF] Oxygen Saturation 99 % Respiratory Rate 18 /min Heart Rate 83 /min Blood Pressure Systolic 127 mm[Hg] Blood Pressure Diastolic 76 mm[Hg] 07/12/2024 09:35 AM Body Weight 133.6 [lb_av] Body Mass Index 22.23 kg/m2 07/12/2024 07:56 PM Blood Pressure Systolic 126 mm[Hg] Blood Pressure Diastolic 70 mm[Hg] 07/13/2024 10:00 AM Temperature 97.9 [degF] Oxygen Saturation 98 % Respiratory Rate 18 /min Heart Rate 81 /min Blood Pressure Systolic 119 mm[Hg] Blood Pressure Diastolic 71 mm[Hg] 07/13/2024 01:21 PM Body Weight 146 [lb_av] Body Mass Index 24.29 kg/m2 07/13/2024 07:30 PM Blood Pressure Systolic 113 mm[Hg] Blood Pressure Diastolic 60 mm[Hg] 07/14/2024 10:57 AM Body Weight 147 [lb_av] Body Mass Index 24.46 kg/m2 07/14/2024 10:58 AM Temperature 97.7 [degF] Oxygen Saturation 96 % Respiratory Rate 16 /min Heart Rate 80 /min Blood Pressure Systolic 138 mm[Hg] Blood Pressure Diastolic 70 mm[Hg] 07/14/2024 08:02 PM Blood Pressure Systolic 115 mm[Hg] Blood Pressure Diastolic 59 mm[Hg] 07/15/2024 10:01 AM Body Weight 145.7 [lb_av] Body Mass Index 24.24 kg/m2 07/15/2024 10:03 AM Temperature 98.5 [degF] Oxygen Saturation 96 % Respiratory Rate 16 /min Heart Rate 78 /min Blood Pressure Systolic 142 mm[Hg] Blood Pressure Diastolic 66 mm[Hg] 07/15/2024 07:26 PM Blood Pressure Systolic 120 mm[Hg] Blood Pressure Diastolic 56 mm[Hg] 07/16/2024 07:21 AM Temperature 98.7 [degF] Oxygen Saturation 96 % Respiratory Rate 17 /min Heart Rate 76 /min Blood Pressure Systolic 154 mm[Hg] Blood Pressure Diastolic 70 mm[Hg] 07/16/2024 10:06 AM Body Weight 146 [lb_av] Body Mass Index 24.29 kg/m2 07/16/2024 07:58 PM Blood Pressure Systolic 96 mm[Hg] Blood Pressure Diastolic 59 mm[Hg] 07/17/2024 09:46 AM Body Weight 147 [lb_av] Body Mass Index 24.46 kg/m2 07/17/2024 10:09 AM Temperature 98.5 [degF] Oxygen Saturation 96 % Respiratory Rate 16 /min Heart Rate 80 /min Blood Pressure Systolic 106 mm[Hg] Blood Pressure Diastolic 65 mm[Hg] 07/17/2024 07:53 PM Blood Pressure Systolic 126 mm[Hg] Blood Pressure Diastolic 66 mm[Hg] 07/18/2024 08:29 AM Temperature 98.2 [degF] Oxygen Saturation 92 % Respiratory Rate 16 /min Heart Rate 78 /min Blood Pressure Systolic 147 mm[Hg] Blood Pressure Diastolic 72 mm[Hg] 07/18/2024 08:09 PM Blood Pressure Systolic 125 mm[Hg] Blood Pressure Diastolic 59 mm[Hg] 07/19/2024 07:35 AM Temperature 98.7 [degF] Oxygen Saturation 96 % Respiratory Rate 16 /min Heart Rate 76 /min Blood Pressure Systolic 144 mm[Hg] Blood Pressure Diastolic 70 mm[Hg] 07/19/2024 07:37 PM Blood Pressure Systolic 117 mm[Hg] Blood Pressure Diastolic 56 mm[Hg] 07/20/2024 09:44 AM Body Weight 147 [lb_av] Body Mass Index 24.46 kg/m2 07/20/2024 09:43 AM Temperature 98 [degF] Oxygen Saturation 97 % Respiratory Rate 16 /min Heart Rate 71 /min Blood Pressure Systolic 107 mm[Hg] Blood Pressure Diastolic 64 mm[Hg] 07/20/2024 08:07 PM Blood Pressure Systolic 105 mm[Hg] Blood Pressure Diastolic 56 mm[Hg] 07/21/2024 09:45 AM Body Weight 148 [lb_av] Body Mass Index 24.63 kg/m2 07/21/2024 09:22 AM Temperature 98.7 [degF] Oxygen Saturation 96 % Respiratory Rate 16 /min Heart Rate 80 /min Blood Pressure Systolic 148 mm[Hg] Blood Pressure Diastolic 67 mm[Hg] 07/21/2024 07:32 PM Blood Pressure Systolic 141 mm[Hg] Blood Pressure Diastolic 69 mm[Hg] 07/22/2024 10:11 AM Body Weight 146.5 [lb_av] Body Mass Index 24.38 kg/m2 07/22/2024 09:40 AM Temperature 97.2 [degF] Oxygen Saturation 95 % Respiratory Rate 18 /min Heart Rate 91 /min Blood Pressure Systolic 166 mm[Hg] Blood Pressure Diastolic 80 mm[Hg] 07/22/2024 08:25 PM Blood Pressure Systolic 98 mm[Hg] Blood Pressure Diastolic 60 mm[Hg] 07/23/2024 09:02 AM Temperature 98.7 [degF] Oxygen Saturation 99 % Respiratory Rate 18 /min Heart Rate 80 /min Blood Pressure Systolic 115 mm[Hg] Blood Pressure Diastolic 70 mm[Hg] 07/23/2024 09:01 AM Body Weight 149.2 [lb_av] Body Mass Index 24.83 kg/m2 07/23/2024 08:42 PM Blood Pressure Systolic 96 mm[Hg] Blood Pressure Diastolic 58 mm[Hg] 07/24/2024 08:21 AM Temperature 98.5 [degF] Oxygen Saturation 100 % Respiratory Rate 18 /min Heart Rate 74 /min Blood Pressure Systolic 141 mm[Hg] Blood Pressure Diastolic 65 mm[Hg] 07/24/2024 08:20 AM Body Weight 147.9 [lb_av] Body Mass Index 24.61 kg/m2 07/25/2024 10:02 AM Temperature 98.5 [degF] Oxygen Saturation 100 % Respiratory Rate 16 /min Heart Rate 85 /min Blood Pressure Systolic 94 mm[Hg] Blood Pressure Diastolic 57 mm[Hg] 07/25/2024 10:01 AM Body Weight 149.6 [lb_av] Body Mass Index 24.89 kg/m2 07/24/2024 07:25 PM Blood Pressure Systolic 98 mm[Hg] Blood Pressure Diastolic 63 mm[Hg] 07/25/2024 07:31 PM Blood Pressure Systolic 111 mm[Hg] Blood Pressure Diastolic 60 mm[Hg] 07/26/2024 09:40 AM Temperature 98 [degF] Oxygen Saturation 96 % Respiratory Rate 18 /min Heart Rate 73 /min Blood Pressure Systolic 152 mm[Hg] Blood Pressure Diastolic 73 mm[Hg] 07/26/2024 11:26 AM Body Weight 147.6 [lb_av] Body Mass Index 24.56 kg/m2 07/26/2024 07:20 PM Blood Pressure Systolic 96 mm[Hg] Blood Pressure Diastolic 52 mm[Hg] 07/27/2024 01:00 PM Temperature 98 [degF] Oxygen Saturation 96 % Respiratory Rate 17 /min Heart Rate 77 /min Blood Pressure Systolic 119 mm[Hg] Blood Pressure Diastolic 63 mm[Hg] Body Weight 147 [lb_av] Body Mass Index 24.46 kg/m2 07/27/2024 07:58 PM Blood Pressure Systolic 108 mm[Hg] Blood Pressure Diastolic 62 mm[Hg] 07/28/2024 10:35 AM Body Weight 148 [lb_av] Body Mass Index 24.63 kg/m2 07/28/2024 11:50 AM Temperature 98.7 [degF] Oxygen Saturation 95 % Respiratory Rate 16 /min Heart Rate 87 /min Blood Pressure Systolic 116 mm[Hg] Blood Pressure Diastolic 58 mm[Hg] 07/28/2024 07:29 PM Blood Pressure Systolic 109 mm[Hg] Blood Pressure Diastolic 50 mm[Hg] 07/29/2024 11:03 AM Temperature 98 [degF] Oxygen Saturation 98 % Respiratory Rate 18 /min Heart Rate 64 /min Blood Pressure Systolic 131 mm[Hg] Blood Pressure Diastolic 70 mm[Hg] Social History Element Description Date Comment Tobacco smoking status NHIS Never smoker Encounters Type CPT Code Date Location Provider Indication s encounter report 07/08/2024 08:35 AM Destiny Minaya MD encounter report 07/08/2024 11:0 0 AM - 07/29/2024 11:52 AM Donna Minaya MD encounter report 07/08/2024 11:0 0 AM - 07/29/2024 11:15 AM Donna Minaya MD Advance Directives Directive Description Verification Date Supporting Document(s) Other Directive
--- NOTE | 2024-10-10 03:24 | ED.GENADULT ---
HPI - General Adult General Time Seen by Provider: 03:24 Date Seen: 10/10/24 Chief complaint: Fall/Minor Trauma Stated complaint: fall, head lac Time Seen by Provider: 10/10/24 03:24 Source: patient, EMS, RN notes reviewed and old records reviewed Mode of arrival: EMS Limitations: no limitations History of Present Illness HPI narrative: 74-year-old female who comes in today with head injury after fall. Patient says she got up to go to the bathroom, got lightheaded and fell. No chest pain or palpitations. Did not pass out. Denies recent illness including nausea, vomiting, diarrhea, chest pain, cough, or shortness of breath. Complains of headache, was given fentanyl 50 mcg per EMS. Related Data Home Medications ?Medication ?Instructions ?Recorded ?Confirmed alendronate 70 mg tablet 70 mg PO MO 03/10/24 09/16/24 metformin 500 mg tablet,extended 2,000 mg PO HS 03/10/24 10/04/24 release 24 hr albuterol sulfate 90 mcg/actuation 1 inh inhalation Q4H PRN 06/30/24 10/04/24 aerosol inhaler polyethylene glycol 3350 17 gram 17 g PO DAILY PRN 08/10/24 10/04/24 oral powder packet (Miralax) carbidopa 25 mg-levodopa 100 mg 1 tab PO .5 times aday 10/04/24 10/04/24 tablet Previous Rx's ?Medication ?Instructions ?Recorded acetaminophen 650 mg 1,300 mg (2 x 650 mg) PO Q12H #120 03/17/24 tablet,extended release tabs folic acid 1 mg tablet 1 mg PO DAILY #30 tabs 03/17/24 mecobalamin (vitamin B12) 1,000 1,000 mcg PO DAILY #30 tabs 03/17/24 mcg chewable tablet (B12 Active) sennosides 8.6 mg-docusate sodium 1 tab PO DAILY PRN #30 tabs 07/08/24 50 mg tablet (Stool Softener-Laxative) escitalopram oxalate 20 mg tablet 20 mg PO DAILY #90 tabs 08/16/24 losartan 25 mg tablet 25 mg PO QDAY #90 tabs 08/16/24 simvastatin 20 mg tablet 20 mg PO HS #90 tabs 08/16/24 Allergies Allergy/AdvReac Type Severity Reaction Status Date / Time tramadol (From [facility]) AdvReac Intermediate Nausea Verified 10/10/24 05:16 [facility] Medical History (Updated 10/10/24 @ 07:42 by Rocco Hernandez MD) History of vitamin D deficiency ?Z86.39 - Personal history of other endocrine, nutritional and metabolic disease (ICD-10) Surgical History (Updated 07/26/24 @ 14:15 by Liane Mackay) 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 Lives with daughter October. Nonsmoker, no concerning ETOH use. Full Code status. What is your current living situation?: I presently have a place to live Problems where you live: no known problems Problems where you live details: none In the past 12 months, utilities in danger of being shut off: no In past 12 months, lack of transportation kept you from medical appts, meetings, work, or getting things needed for daily living: no In the past 12 mos, have been you worried that your food would run out before you had money to buy more?: never true In the past 12 mos, the food you bought just didn't last and you didn't have money to buy more?: never true Highest level of school completed/degree received: Associate degree: occupational, technical, vocational program Smoking Status: Never smoker Second hand tobacco smoke exposure: No How often do you have a drink containing alcohol: never AUDIT-C Alcohol total score: 0 Non-prescribed substance use: denies use Caffeine: Yes How often does anyone, including family, friends and others, physically hurt you: never How often does anyone, including family, friends and others, insult or talk down to you: never How often does anyone, including family, friends and others, threaten you with harm: never How often does anyone, including family, friends and others, scream or curse at you: never service: No Exam Narrative: Exam Narrative: General: Well-developed and well-nourished, no acute distress Head: Atraumatic and normocephalic Eyes: Pupils are equal reactive, extraocular motions intact, conjunctiva clear ENT: External nose and ears are normal, posterior pharynx without erythema or exudate Neck: No midline cervical tenderness, full spontaneous range of motion the neck, trachea midline, no adenopathy Heart: Regular rate and rhythm no murmurs or thrills Lungs: Clear to auscultation bilaterally without wheezes or crackles Abdomen: Soft, nontender, nondistended with active bowel sounds Musculoskeletal: No tenderness, deformity, or edema Neurologic: Awake, alert, and oriented x3, no gross focal neurologic deficits, cranial nerves intact as tested Psych: Mood and affect are appropriate Skin: No rashes Const: Vital Signs, click to edit/add: Vital Signs - 24 hr 10/10/24 03:25 10/10/24 07:28 Temperature 98.2 F 98.1 F Pulse Rate [Right Pulse Oximeter] 102 H 113 H Respiratory Rate 18 18 Blood Pressure [Le ft Upper Arm] 177/90 H 121/67 Pulse Oximetry 95 94 Oxygen Delivery Me thod Room Air Room Air Course Course ED Course: Patient seen examined, reviewed most recent oncology visit from October 04 patient was seen for CML, recently diagnosed and being observed for now. Denies new medications. On exam here, tachycardic but otherwise vital is stable, she is shivering little bit is cold so suspect this will improve when she has warmed up a little bit. Heart is regular. No external signs of head injury, no midline cervical tenderness and full spontaneous range of motion the neck. No midline thoracic or lumbar tenderness. Labs ordered along with CT scan of the head. EKG independently interpreted by me performed at 3:32 a.m. demonstrates sinus tachycardia rate 119, normal intervals, normal axis, QTC 49, TN 144. Compared to prior June 2024, rate is increased. Reevaluation(s) Time of Reevaluation #1: 03:49 Reevaluation #1: CT head independently interpreted by me negative for acute findings. Labs and Bentyl interpreted by me with normal CBC the mild anemia which is stable for the patient, magnesium normal, basic metabolic panel normal, point care troponin 0.06 which is slightly elevated and will be repeated. No EKG changes. Time of Reevaluation #2: 06:01 Reevaluation #2: CT PE study independently interpreted by me negative for acute findings. Repeat troponin is increased at 0.67. Patient remains tachycardic. Care discussed with Dr. Hand, cardiology who recommend CTA versus stress test. We discussed disposition location, patient could be admitted to [facility] with stress tomorrow versus transfer. Family would like patient transferred today. Spoke with Dr. Hand again If repeat troponin increases, start heparin. Repeat EKG with sinus tachycardia rate 113, no acute ischemic changes, normal intervals, normal axis, QRS 92, QTc 480. No change from prior of earlier today. Time of Reevaluation #3: 07:42 Reevaluation #3: Patient noted on monitor to be in atrial fibrillation, daughter says patient has no history of this. Repeat EKG will be performed to try to catch this rhythm, otherwise telemetry strips will be printed. Metoprolol 2.5 mg IV will be given for rate controlled Vital Signs Vital signs: Initial Vital Signs Temperature 98.2 F 10/10/24 03:25 Temperature Source Temporal Artery Scan 10/10/24 03:25 Pulse Rate 102 H 10/10/24 03:25 Pulse Rhythm Regular 10/10/24 03:25 Pulse Strength 3+ Normal 10/10/24 03:25 Respiratory Rate 18 10/10/24 03:25 Blood Pressure 177/90 H 10/10/24 03:25 Blood Pressure Mean 119 H 10/10/24 03:25 Blood Pressure Position Supine 10/10/24 03:25 Pulse Oximetry 95 10/10/24 03:25 Oxygen Delivery Method Room Air 10/10/24 03:25 Vital Signs Temperature 98.2 F 10/10/24 03:25 Pulse Rate 102 H 10/10/24 03:25 Respiratory Rate 18 10/10/24 03:25 Blood Pressure 177/90 H 10/10/24 03:25 Pulse Oximetry 95 10/10/24 03:25 Oxygen Delivery Method Room Air 10/10/24 03:25 Temperature 98.1 F 10/10/24 07:28 Pulse Rate 113 H 10/10/24 07:28 Respiratory Rate 18 10/10/24 07:28 Blood Pressure 121/67 10/10/24 07:28 Pulse Oximetry 94 10/10/24 07:28 Oxygen Delivery Method Room Air 10/10/24 07:28 Medications Administered Medications: Discontinued Medications Generic Name Dose Route Start Last Admin Trade Name Sidney PRN Reason Stop Dose Admin Sodium Chloride 500 mls @ 500 mls/hr 10/10/24 04:54 10/10/24 05:52 0.9 % Sodium Chloride 500 Ml IV 10/10/24 05:53 Infused .Q1H ONE Infusion Sodium Chloride 500 mls @ 500 mls/hr 10/10/24 06:50 10/10/24 07:22 0.9 % Sodium Chloride 500 Ml IV 10/10/24 07:49 500 mls/hr .Q1H ONE Administration Ketorolac Tromethamine 15 mg 10/10/24 04:54 10/10/24 05:21 Ketorolac 15 Mg/Ml Inj IVP 10/10/24 04:55 15 mg ONCE ONE Administration Ondansetron HCl 4 mg 10/10/24 04:46 10/10/24 05:21 Ondansetron 2 Mg/Ml Inj IVP 10/10/24 04:47 4 mg ONCE ONE Administration Medical Decision Making Lab Data Labs: Lab Results 10/10/24 10/10/24 10/10/24 Range/Units 03:27 03:50 04:19 WBC 7.79 (4.50-11.00) K/uL RBC 3.76 L (4.00-5.20) m/uL Hgb 10.8 L (12.0-16.0) gm/dL Hct 33.9 (33.0-51.0) % MCV 90 (80-100) fL MCH 29 (26-34) pg MCHC 32 (32-36) gm/dL RDW Coeff of Evaristo 17.0 H (11.5-15.5) % Plt Count 189 (140-440) K/uL Neut % (Auto) 38.1 L (42.0-72.0) % Lymph % (Auto) 29.5 (20-44) % [place] % (Auto) 30.0 H (0.0-11.0) % Eos % (Auto) 0.8 (0.0-7.0) % Baso % (Auto) 0.4 (0.0-3.0) % Neut # (Auto) 3.00 (1.7-7.0) K/uL Lymph # (Auto) 2.30 (0.90-2.90) K/uL [place] # (Auto) 2.30 H (0.00-0.90) K/UL Eos # (Auto) 0.06 (0.00-0.50) K/uL Baso # (Auto) 0.03 (0.00-0.30) K/uL Abs Immat Gran (auto) 0.09 (0.00-0.30) K/uL Imm/Tot Granulo (auto) 1.2 % D-Dimer Quant (PE/DVT) 3.19 H (0.00-0.50) ug/ml Sodium 140 (135-149) mmol/L Potassium 4.1 (3.6-5.1) mmol/L Chloride 102 (96-114) mmol/L Carbon Dioxide 26 (20-32) mmol/L Anion Gap 12 (7-15) mEq/L BUN 18 (7-30) mg/dL Creatinine 0.5 (0.5-1.5) mg/dL Estimated Creat Clear 43.07 Estimated GFR 97 ml/min Glucose 135 H (60-115) mg/dL Calcium 9.2 (8.4-10.6) mg/dL Magnesium 1.7 (1.5-2.6) mg/dL Troponin I (0.01-0.04) ng/mL Lab Acknowledgement Test Added POC Troponin I 0.06 H (0.01-0.04) ng/ml 10/10/24 Range/Units 05:55 WBC (4.50-11.00) K/uL RBC (4.00-5.20) m/uL Hgb (12.0-16.0) gm/dL Hct (33.0-51.0) % MCV (80-100) fL MCH (26-34) pg MCHC (32-36) gm/dL RDW Coeff of Evaristo (11.5-15.5) % Plt Count (140-440) K/uL Neut % (Auto) (42.0-72.0) % Lymph % (Auto) (20-44) % [place] % (Auto) (0.0-11.0) % Eos % (Auto) (0.0-7.0) % Baso % (Auto) (0.0-3.0) % Neut # (Auto) (1.7-7.0) K/uL Lymph # (Auto) (0.90-2.90) K/uL [place] # (Auto) (0.00-0.90) K/UL Eos # (Auto) (0.00-0.50) K/uL Baso # (Auto) (0.00-0.30) K/uL Abs Immat Gran (auto) (0.00-0.30) K/uL Imm/Tot Granulo (auto) % D-Dimer Quant (PE/DVT) (0.00-0.50) ug/ml Sodium (135-149) mmol/L Potassium (3.6-5.1) mmol/L Chloride (96-114) mmol/L Carbon Dioxide (20-32) mmol/L Anion Gap (7-15) mEq/L BUN (7-30) mg/dL Creatinine (0.5-1.5) mg/dL Estimated Creat Clear Estimated GFR ml/min Glucose (60-115) mg/dL Calcium (8.4-10.6) mg/dL Magnesium (1.5-2.6) mg/dL Troponin I 0.58 H* (0.01-0.04) ng/mL Lab Acknowledgement POC Troponin I (0.01-0.04) ng/ml Discharge Plan Discharge Clinical Impression: Syncope, Elevated troponin, Type 2 diabetes mellitus, Hyperlipidemia, Essential hypertension, Atrial fibrillation, new onset Patient Disposition: Xfer [place] [place] Prescriptions: No Action albuterol sulfate 90 mcg/actuation HFA aerosol inhaler 1 inh inhalation Q4H PRN simvastatin 20 mg tablet 20 mg PO HS Qty: 90 3RF losartan 25 mg tablet 25 mg PO QDAY Qty: 90 3RF escitalopram oxalate 20 mg tablet 20 mg PO DAILY Qty: 90 3RF metformin 500 mg tablet extended release 24 hr 2,000 mg PO HS alendronate 70 mg tablet 70 mg PO MO carbidopa-levodopa 25-100 mg tablet 1 tab PO .5 times aday acetaminophen 650 mg tablet extended release 1,300 mg PO Q12H Qty: 120 0RF mecobalamin (vitamin B12) [B12 Active] 1,000 mcg tablet,chewable 1,000 mcg PO DAILY Qty: 30 0RF folic acid 1 mg tablet 1 mg PO DAILY Qty: 30 0RF sennosides-docusate sodium [Stool Softener-Laxative] 8.6-50 mg Tablet 1 tab PO DAILY PRNQty: 30 0RF polyethylene glycol 3350 [Miralax] 17 gram Powder In Packet 17 g PO DAILY PRN Stand Alone Forms: My[employer] Info Instructions
[2024-10-10 03:25] VITALS: BP 177/90; PULSE 102; RESP 18; TEMP 36.8; O2SAT 95; BMI 22.5
--- NOTE | 2024-10-10 03:27 | CRLHL7_ITS ---
For Patients: As a result of the Century Cures Act, medical imaging exams and procedure reports are released immediately into your electronic medical record. You may view this report before your referring provider. If you have questions, please contact your health care provider. Indication: Fall, head laceration Technique: Noncontrast CT through the head with multiplanar reformats Comparison: CT head performed 07/04/2024 Findings: Brain: No acute hemorrhage. No acute infarct. No significant mass effect or midline shift. No gross evidence of a mass lesion or cerebral edema. Mild to moderate chronic microvascular ischemic disease. Mild global parenchymal volume loss. Ventricles: No acute abnormality appreciated. Orbits, sinuses, mastoids: No acute abnormality appreciated. Calvarium and soft tissues: Right posterior scalp contusion. Impression: Right posterior scalp contusion, no acute intracranial abnormality appreciated. Please note that all CT scans at this facility use dose modulation, iterative reconstruction, and/or weight-based dosing when appropriate to reduce radiation dose to as low as reasonably achievable. Dictated by Andrea Elder MD @ 10/10/2024 3:57:19 AM (Electronically Signed)
[2024-10-10 03:58] LABS: Basophils Absolute Auto 0.03 K/uL (0.00-0.30); Basophils Percent Auto 0.4 % (0.0-3.0); Eosinophils Absolute Auto 0.06 K/uL (0.00-0.50); Eosinophils Percent Auto 0.8 % (0.0-7.0); Hematocrit 33.9 % (33.0-51.0); Hemoglobin* 10.8 gm/dL (12.0-16.0); Immature Granulocytes Abs Auto 0.09 K/uL (0.00-0.30); Immature Granulocytes Pct Auto 1.2 %; Lymphocytes Percent Auto 29.5 % (20-44); Mean Corpuscular HGB Conc 32 gm/dL (32-36); Mean Corpuscular Hemoglobin 29 pg (26-34); Mean Corpuscular Volume 90 fL (80-100); Neutrophils Percent Auto 38.1 % (42.0-72.0); Platelet Count* 189 K/uL (140-440); Red Blood Count 3.76 m/uL (4.00-5.20); White Blood Count* 7.79 K/uL (4.50-11.00)
[2024-10-10 04:01] LABS: Slide Review Reflex No
[2024-10-10 04:10] LABS: Troponin, Point-of-Care* 0.06 ng/ml (0.01-0.04)
[2024-10-10 04:11] LABS: Chloride* 102 mmol/L (96-114); Potassium* 4.1 mmol/L (3.6-5.1); Sodium* 140 mmol/L (135-149)
[2024-10-10 04:14] LABS: Anion Gap 12 mEq/L (7-15); Blood Urea Nitrogen* 18 mg/dL (7-30); Calcium* 9.2 mg/dL (8.4-10.6); Carbon Dioxide* 26 mmol/L (20-32); Creatinine* 0.5 mg/dL (0.5-1.5); Est. Creatinine Clearance* 43.07; Estimated Glomerular Filt Rate 97 ml/min; Glucose* 135 mg/dL (60-115); Magnesium* 1.7 mg/dL (1.5-2.6)
[2024-10-10 04:42] LABS: D Dimer Quantitative* 3.19 ug/ml (0.00-0.50)
--- NOTE | 2024-10-10 04:46 | CRLHL7_ITS ---
For Patients: As a result of the Century Cures Act, medical imaging exams and procedure reports are released immediately into your electronic medical record. You may view this report before your referring provider. If you have questions, please contact your health care provider. INDICATION: Dyspnea. Clinical signs and symptoms of pulmonary embolus. Syncope. Elevated D-dimer. COMPARISON: A prior study dated June 27, 2024 TECHNIQUE: : CT examination of the chest was performed with the uneventful intravenous administration of 95 cc of Isovue 370 while thin axial sections were obtained from above the apices of the lungs to the lung bases. The examination was timed as a pulmonary artery angiogram. Please note that all CT scans at this facility use dose modulation, iterative reconstruction, and/or weight-based dosing when appropriate to reduce radiation dose to as low as reasonably achievable. FINDINGS: : HEART and MEDIASTINUM: Heart size normal. No mediastinal or hilar adenopathy or mass. Atherosclerotic vascular calcifications. Hiatal hernia noted the findings likely indicating reflux. PULMONARY ARTERIAL CIRCULATION: There is no visible intraluminal filling defect to suggest pulmonary embolus. LUNGS and PLEURAL SPACES: Mild thickening of the interlobular septa. This is usually due to mild interstitial edema. Linear opacities consistent with a combination of atelectasis and scarring. Trace pleural fluid on the right. Benign-appearing nodules in the right middle lobe appear to be perifissural lymphoid aggregates. There is a nodule in the left upper lobe measuring about 7.2 millimeters. This is about 1.5 millimeters larger than it was June 27, 2024 though the difference may be technical. Recommend a six-month follow-up chest CT.. 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 There is also cholelithiasis. Otherwise, the visualized upper abdominal structures appear normal. OSSEOUS STRUCTURES: Age-appropriate appearance. No acute fracture or destructive process. TUBES and LINES: None. IMPRESSION: 1. There is no finding to suggest pulmonary embolus. 2. Findings likely representing mild interstitial edema with a small right effusion. Linear areas of atelectasis and scarring are noted. 3. Benign-appearing nodules in the right middle lobe. Indeterminate left upper lobe nodule may be slightly larger than June 27, 2024 though the difference may be technical. Recommend a six-month follow-up chest CT. Incidental 4. Hiatal hernia with evidence of reflux. 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 Cholelithiasis. Please note that all CT scans at this facility use dose modulation, iterative reconstruction, and/or weight-based dosing when appropriate to reduce radiation dose to as low as reasonably achievable. Dictated by Amor Irwin MD @ 10/10/2024 5:45:11 AM (Electronically Signed)
[2024-10-10] MEDS: 0.9 % SODIUM CHLORIDE 500 ML 500 ML IV ×2 (05:21→07:22)
[2024-10-10] MEDS: ONDANSETRON 2 MG/ML inj 4 MG IVP (05:21)
[2024-10-10] MEDS: KETOROLAC 15 MG/ML inj IVP (05:21)
[2024-10-10 06:48] LABS: Troponin I* 0.58 ng/mL (0.01-0.04)
[2024-10-10 07:23] VITALS: BP 121/67; PULSE 115; RESP 18; O2SAT 94
[2024-10-10 07:28] VITALS: BP 121/67; PULSE 113; RESP 18; TEMP 36.7; O2SAT 94
[2024-10-10] MEDS: ACETAMINOPHEN 500 MG TABLET 1000 MG PO (08:10)
[2024-10-10] MEDS: ASPIRIN 81 MG TAB.CHEW 324 MG PO (08:14)
[2024-10-10] MEDS: METOPROLOL TARTRATE 1 MG/ML inj 2.5 MG IVP (08:16)
[2024-10-10 09:51] LABS: INR 0.94 (0.91-1.10); Prothrombin Time 13.3 Seconds
[2024-10-10 09:52] LABS: Partial Thromboplastin Time* 29 Seconds (23-33)
[2024-10-10 09:53] VITALS: BP 120/64; PULSE 78; RESP 18; TEMP 36.7; O2SAT 94
[2024-10-10] MEDS: HEPARIN 5,000 UNIT/0.5 ML INJ 3700 UNIT IVP (09:57)
[2024-10-10] MEDS: HEPARIN 25,000 UNIT/500 ML BAG 15 UNIT IV (09:57)
[2024-10-10 11:13] VITALS: BP 125/66; PULSE 77; RESP 18; TEMP 36.7; O2SAT 94
[2024-10-10 12:11] LABS: Troponin, Point-of-Care* 0.98 ng/ml (0.01-0.04)
== END 2024-10-10 12:12 | disposition short-term general hospital (02) ==
PROVIDERS: Family Medicine; Emergency Provider Emergency Medicine; PCP Internal Medicine
DX: R55 Syncope and collapse (principal); E11.65 Type 2 diabetes mellitus with hyperglycemia; I10 Essential (primary) hypertension; I48.20 Chronic atrial fibrillation, unspecified
CPT/HCPCS: 36415; 70450; 71275; 80048; 81001; 83735; 84484; 85025; 85379; 85610; 85730; 93005; 99285; A9270; J1644; J1885; J2405; J7030; Q9967

== ENCOUNTER 2024-10-10 11:50 | Outpatient (CLI) | payer MEDICARE, SELFPAY | END 2024-10-10 11:51 | disposition home or self-care (01) | LOC: AMB 10-11 14:24 | PROVIDERS: PCP Internal Medicine; Visit Provider Emergency Medicine | DX: R55 Syncope and collapse (principal); R79.89 Other specified abnormal findings of blood chemistry; E11.9 Type 2 diabetes mellitus without complications; E78.5 Hyperlipidemia, unspecified; I10 Essential (primary) hypertension; I48.91 Unspecified atrial fibrillation | CPT/HCPCS: A0425; A0427 ==

== ENCOUNTER 2024-11-10 15:42 | Outpatient (CLI) | payer MEDICARE, SELFPAY ==
--- NOTE | 2024-11-10 16:00 | CRLHL7_ITS ---
For Patients: As a result of the 21st Century Cures Act, medical imaging exams and procedure reports are released immediately into your electronic medical record. You may view this report before your referring provider. If you have questions, please contact your health care provider. EXAM: FDG PET-CT Skull Base to Thighs CLINICAL INFORMATION: 74-year-old woman with history of CML. PET CT ordered for additional characterization. TECHNIQUE: Radiopharmaceutical: 18F-fluorodeoxyglucose (18F-FDG) Dose: 10.56 milliCurie. Blood glucose: 87 mg/dL. Image acquisition: At approximately 60 minutes following IV tracer administration via a left hand vein, positron emission tomography was performed from the skull base through the mid thigh. Non-contrast low-dose helical CT imaging was performed over the same range without breath-hold for attenuation correction of PET images and anatomic correlation; it is neither sufficient, nor should it be substituted for diagnostic purposes. COMPARISON: CT chest 10/10/2024. CT abdomen/pelvis . FINDINGS: Mediastinal blood pool FDG uptake: SUVMax 2.3 (Image 81) Liver background parenchymal FDG uptake: SUVMax 2.8 (image 117) PET Findings: *Intensely FDG avid 0.9 x 0.7 cm left supraclavicular node SUVMax 15.7 (image 46) previously 0.9 x 0.8 cm 10/10/2024 (4:13, remeasured in the same plane). *Moderately FDG avid celiac axis node without definite CT correlate SUVMax 5.3 (image 132) *Moderate cutaneous FDG uptake in the right antecubital fossa is without CT correlate SUV max 4.2 (image 133). *Perihardware uptake at the left shoulder arthroplasty likely represents reactive uptake. *FDG avid subacute fractures and left pubic tubercle and left inferior pubic ramus is favored to be reactive, with interval healing at the left inferior pubic ramus fracture since 07/03/2024. No other abnormal FDG uptake in the visualized skeleton. Diffuse bowel loop FDG uptake. Tracer uptake elsewhere is physiologic. Non-PET findings: Subcentimeter 0.8 cm pulmonary nodule in the left upper lobe (image 73) is too small to characterize. Coronary artery calcifications. Atherosclerotic calcifications of the thoracic and abdominal aorta. Punctate non-obstructive calyceal stone in the left kidney. Colonic diverticulosis. Multilevel degenerative changes in the spine. Left shoulder arthroplasty. IMPRESSION: 1. Intensely FDG avid 0.9 x 0.7 cm left supraclavicular node and moderately FDG avid celiac axis node are nonspecific. The differential includes metabolically active lymphoproliferative neoplasm related to CML with possible transformation, versus metastatic disease from an occult primary neoplasm, versus a nonspecific inflammatory process. 2. Diffuse bowel loop FDG uptake can be seen with medication related uptake secondary to metformin use. Correlate with clinical history of metformin use in this patient given the clinical history of diabetes. 3. Subcentimeter 0.8 cm pulmonary nodule in the left upper lobe is too small to characterize. Correlate with prior CT studies, if available, versus correlate with repeat CT chest in 6-12 months. 4. Moderate cutaneous FDG uptake in the right antecubital fossa of the right arm is without CT correlate. Findings are nonspecific for a cutaneous lesion, inflammatory change, versus contamination by radiotracer. Correlate with direct inspection. 5. Interval healing of the subacute fracture of the left inferior pubic ramus with reactive uptake. Dictated by Usman Tran MD @ 11/11/2024 11:20:22 PM (Electronically Signed)
== END 2024-11-10 15:43 | disposition home or self-care (01) ==
LOC: RAD 15:42
PROVIDERS: PCP Internal Medicine; Visit Provider Internal Medicine Hematology & Oncology
DX: C93.10 Chronic myelomonocytic leukemia not having achieved remission (principal)
CPT/HCPCS: 78815; A9552

== ENCOUNTER 2024-11-29 13:30 | Outpatient (RCR) | payer MEDICARE, SELFPAY ==
--- NOTE | 2024-08-05 10:25 | ONC.NURNOTE ---
Diagnosis: Iron Deficiency Anemia
--- NOTE | 2024-08-05 10:54 | URNOTE ---
Request received for authorization for Iron Sucrose (Venofer) ([id number]). Prior authorization is not required per [facility] Ref# [id number].
[2024-08-10 13:00] VITALS: BP 119/77; PULSE 77; RESP 16; TEMP 36.9; O2SAT 98
[2024-08-10 14:04] VITALS: BP 117/79; PULSE 68; RESP 16; TEMP 36.4; O2SAT 95
[2024-08-10 14:30] VITALS: BP 117/74; PULSE 68; RESP 16; TEMP 36.6; O2SAT 95
[2024-08-12 13:44] VITALS: BP 106/65; PULSE 68; RESP 16; O2SAT 95
[2024-08-12] MEDS: SODIUM CHLORIDE 0.9 % (FLUSH) 10 ML SYRINGE IVF (13:44)
[2024-08-17 11:25] VITALS: BP 115/66; PULSE 82; RESP 16; TEMP 36.6; O2SAT 97
[2024-08-17] MEDS: SODIUM CHLORIDE 0.9 % (FLUSH) 10 ML SYRINGE IVF (12:15)
[2024-08-17 12:41] VITALS: BP 114/67; PULSE 67; RESP 16; O2SAT 95
[2024-08-17 13:17] VITALS: BP 129/70; PULSE 72; RESP 16; O2SAT 98
[2024-08-19 09:45] VITALS: BP 137/74; PULSE 90; RESP 16; TEMP 36.3; O2SAT 96
[2024-08-19] MEDS: SODIUM CHLORIDE 0.9 % (FLUSH) 10 ML SYRINGE IVF (10:26)
[2024-08-19 10:55] VITALS: BP 127/62; PULSE 73; RESP 16; TEMP 36.2; O2SAT 95
[2024-08-19 11:27] VITALS: BP 128/70; PULSE 97; RESP 16; TEMP 36.8; O2SAT 97
[2024-08-24 11:06] VITALS: BP 116/76; PULSE 82; RESP 16; TEMP 36.9; O2SAT 94
[2024-08-24] MEDS: SODIUM CHLORIDE 0.9 % (FLUSH) 10 ML SYRINGE IVF (11:21)
[2024-08-24 11:47] VITALS: BP 110/68; PULSE 67; RESP 16; TEMP 37.4; O2SAT 94
[2024-08-24 12:12] VITALS: BP 123/77; PULSE 68; RESP 16; TEMP 37.1; O2SAT 94
[2024-09-21 20:00] LABS: QuantBCR-ABL Major p210 Result Not Detected; QuantBCR-ABL Major p210 Source Whole Blood; QuantBCR-ABLMajor p210 IS % 0.0000 %
== END 2025-02-06 23:59 | disposition home or self-care (01) ==
LOC: CCIC 13:30
PROVIDERS: PCP Internal Medicine; Referring Provider Internal Medicine; Visit Provider Internal Medicine Hematology & Oncology
DX: C93.10 Chronic myelomonocytic leukemia not having achieved remission (principal); E11.9 Type 2 diabetes mellitus without complications; I10 Essential (primary) hypertension; G20.A1 Parkinson's disease without dyskinesia, without mention of fluctuations; R35.0 Frequency of micturition; R63.4 Abnormal weight loss; R13.10 Dysphagia, unspecified
CPT/HCPCS: 36415; 80053; 81206; 82525; 82607; 82668; 82728; 82746; 83540; 83550; 83615; 85025; 85045; 87086; 96365; 99202; 99205; 99214; G0463; J1756; J7050

== ENCOUNTER 2024-12-07 11:00 | Outpatient (CLI) | payer MEDICARE, SELFPAY ==
--- NOTE | 2024-12-07 11:15 | CRLHL7_ITS ---
For Patients: As a result of the Cures Act, medical imaging exams and procedure reports are released immediately into your electronic medical record. You may view this report before your referring provider. If you have questions, please contact your health care provider. Indication: PET avid supraclavicular lymph node Technique: Grayscale ultrasound of the left supraclavicular space performed. Comparison: CT-PET 11/10/2024 Findings: The focus of increased uptake on the PET scan is not visualized on sonography. Impression: The metabolically active structure in the left supraclavicular space is not identified by sonography. Dictated by Edwardo Akins MD @ 12/07/2024 7:01:23 PM (Electronically Signed)
== END 2024-12-07 11:01 | disposition home or self-care (01) ==
LOC: US 11:00
PROVIDERS: PCP Internal Medicine; Visit Provider Clinical Nurse Specialist
DX: C93.10 Chronic myelomonocytic leukemia not having achieved remission (principal)
CPT/HCPCS: 76536

== ENCOUNTER 2025-01-12 10:05 | Outpatient (CLI) | payer MEDICARE, SELFPAY | END 2025-01-12 10:06 | disposition home or self-care (01) | LOC: NFLDREF 01-16 17:43 | PROVIDERS: PCP Internal Medicine; Referring Provider Internal Medicine; Visit Provider Internal Medicine | DX: I10 Essential (primary) hypertension (principal); E11.9 Type 2 diabetes mellitus without complications; C93.10 Chronic myelomonocytic leukemia not having achieved remission; D64.9 Anemia, unspecified; E53.8 Deficiency of other specified B group vitamins; R41.3 Other amnesia; R26.89 Other abnormalities of gait and mobility; G20.C Parkinsonism, unspecified; G64 Other disorders of peripheral nervous system | CPT/HCPCS: 80053; 80061; 82043; 82570; 84207 ==

== ENCOUNTER 2025-02-14 11:15 | Outpatient (RCR) | payer MEDICARE, SELFPAY | END 2025-05-10 13:31 | disposition home or self-care (01) | PROVIDERS: PCP Internal Medicine; Visit Provider Orthopaedic Surgery Sports Medicine | DX: Z47.1 Aftercare following joint replacement surgery (principal); Z96.612 Presence of left artificial shoulder joint; M25.512 Pain in left shoulder; Z51.89 Encounter for other specified aftercare | CPT/HCPCS: 97110; 97140; 97161 ==

== ENCOUNTER 2025-02-22 10:30 | Outpatient (CLI) | payer MEDICARE, SELFPAY ==
--- NOTE | 2025-02-22 11:00 | CRLHL7_ITS ---
For Patients: As a result of the Century Cures Act, medical imaging exams and procedure reports are released immediately into your electronic medical record. You may view this report before your referring provider. If you have questions, please contact your health care provider. Indication: Leukemia. Technique: Contrast-enhanced CT of the neck with multiplanar reconstruction utilizing 72 cc Isovue 370 iodinated intravenous contrast. Comparison: Correlated with PET-CT dated 11/10/2024 and MR cervical spine dated 03/16/2024. Findings: No suspicious mucosal based mass enhancement. Unchanged 11 mm left level IV lymph node conglomerate which exhibited FDG avidity on prior PET-CT. No pathologically enlarged lymph nodes elsewhere within neck. Normal parotid and submandibular glands. Unremarkable thyroid. Clear lung apices. Age indeterminate depression of the C2 inferior endplate. Unremarkable imaged orbits and intracranial structures. Impression: 1. Unchanged 11 mm left level IV lymph node conglomerate which exhibited FDG avidity on prior PET-CT. 2. No pathologically enlarged lymph nodes elsewhere within the neck. 3. Age-indeterminate C2 inferior endplate compression fracture, new since MR cervical spine dated 03/16/2024. Recommend MRI cervical spine to evaluate for acuity. Please note that all CT scans at this facility use dose modulation, iterative reconstruction, and/or weight-based dosing when appropriate to reduce radiation dose to as low as reasonably achievable. Dictated by Burak Yeh MD @ 02/23/2025 9:37:53 PM (Electronically Signed)
[2025-02-22 11:12] LABS: Creatinine* 0.7 mg/dL (0.5-1.5); Estimated Glomerular Filt Rate 89 ml/min
== END 2025-02-22 10:31 | disposition home or self-care (01) ==
LOC: CT 10:31
PROVIDERS: PCP Internal Medicine; Visit Provider Internal Medicine Hematology & Oncology
DX: C93.10 Chronic myelomonocytic leukemia not having achieved remission (principal); M48.52XA Collapsed vertebra, not elsewhere classified, cervical region, initial encounter for fracture
CPT/HCPCS: 36415; 70491; 82565; Q9967

== ENCOUNTER 2025-04-14 14:01 | Outpatient (CLI) | payer MEDICARE, SELFPAY | END 2025-04-14 14:02 | disposition home or self-care (01) | LOC: NFLDREF 04-17 18:33 | PROVIDERS: PCP Internal Medicine; Referring Provider Internal Medicine; Visit Provider Internal Medicine | DX: E53.8 Deficiency of other specified B group vitamins (principal) | CPT/HCPCS: 82607 ==

== ENCOUNTER 2025-05-24 12:34 | Outpatient (CLI) | payer MEDICARE, SELFPAY ==
--- NOTE | 2025-05-24 13:00 | CRLHL7_ITS ---
For Patients: As a result of the Cures Act, medical imaging exams and procedure reports are released immediately into your electronic medical record. You may view this report before your referring provider. If you have questions, please contact your health care provider. INDICATION: BILATERAL SCREENING MAMMOGRAM, ASYMPTOMATIC 75 Y/O FEMALE COMPARISON: NOT AVAILABLE TECHNIQUE: Digital mammogram in CC and MLO projections including computer-aided detection (CAD) and tomosynthesis. BREAST COMPOSITION: The breasts are heterogeneously dense, which may obscure small masses. FINDINGS: No suspicious findings. ASSESSMENT: BI-RADS 2 Benign RECOMMENDATION: Annual screening mammogram. A lay language report of this examination will be provided to the patient. Dictated by: Edwardo Akins MD @ 06/06/2025 12:05:39 (Electronically Signed)
--- NOTE | 2025-05-24 14:00 | CRLHL7_ITS ---
For Patients: As a result of the Century Cures Act, medical imaging exams and procedure reports are released immediately into your electronic medical record. You may view this report before your referring provider. If you have questions, please contact your health care provider. DXA BONE MINERAL DENSITY STUDY Current height (in): 62. Weight (lb): 150. Menopause age: 46. Ethnicity: White. 1. Have you had a previous hip or vertebral fracture? Yes. 2. Have you had any fractures during your adult life which did not result from significant trauma (e.g., auto accident)? Yes. 3. Did either of your parents have a hip fracture? No. 4. Do you smoke? No. 5. Have you ever taken Glucocorticoids? Yes. 6. Do you have rheumatoid arthritis? No. 7. Do you have secondary osteoporosis? No. 8. Do you drink 3 or more alcoholic drinks per day? No. 9. Are you being treated for osteoporosis? Yes. 10. Have you ever taken any of the following medications: Actonel, Evista, Fosamax, Miacalcin, Reclast, Boniva, Forteo, HRT (i.e. estrogen/hormone therapy), Protelos, Prolia, Vitamin D, Calcium, other ??? please specify. ANSWER: Yes, Fosamax. 11. Do you have any of the following medical conditions: Anorexia or bulimia, asthma or emphysema, end stage renal disease, hyperparathyroidism, any seizure disorders, cancer, inflammatory bowel diseases, hysterectomy, other ??? please specify. ANSWER: Yes, asthma/emphysema, cancer, hysterectomy. 12. What was your maximum height (inches)? 66. 13. Do you perform weight bearing exercise regularly? Yes. 14. Do you regularly consume dairy products? Yes. 15. Do you drink caffeinated beverages? Yes. 16. At what age did your period start? 12. 17. Are you premenopausal? No. 18. How many full term pregnancies have you had? 2. 19. Have you ever missed your period for more than 6 months in a row (not including or menopause)? No. TECHNIQUE: Bone mineral density study was performed using the [employer]. FINDINGS: The results of the study expressed as bone mineral density (BMD) are as follows: Lumbar spine L1 to L3: BMD: 0.925 g/cm2. T-score: -0.8. Z-score: 1.6. Left: BMD: 0.652 g/cm2. T-score: -1.8. Z-score: 0.4. Right: BMD: 0.618 g/cm2. T-score: -2.1. Z-score: 0.1. Total Left: BMD: 0.743 g/cm2. T-score: -1.6. Z-score: 0.3. Right: BMD: 0.745 g/cm2. T-score: -1.6. Z-score: 0.3. IMPRESSION: Osteopenia. *Comparison exams done prior to 12/2019 were performed on different unit, [employer]. Claribel Willard M.D. Diagnostic Radiologist [email or web address] DAPHNE/Dictated by: Claribel Willard MD @ 05/24/2025 6:01:00 PM (Electronically Signed)
== END 2025-05-24 12:35 | disposition home or self-care (01) ==
LOC: MAMMO 12:35
PROVIDERS: PCP Internal Medicine; Visit Provider Internal Medicine
DX: Z12.31 Encounter for screening mammogram for malignant neoplasm of breast (principal); R92.333 Mammographic heterogeneous density, bilateral breasts; M85.88 Other specified disorders of bone density and structure, other site
CPT/HCPCS: 77063; 77067; 77080